=== PATIENT | male | born 1960 ===

== ENCOUNTER → 2020-04-16 15:50 | Outpatient (BNVA) | payer MEDICAID, SELFPAY | PROVIDERS: PCP Family Medicine; Referring Provider Family Medicine; Visit Provider Internal Medicine | DX: J44.9 Chronic obstructive pulmonary disease, unspecified (principal); R09.02 Hypoxemia; R91.8 Other nonspecific abnormal finding of lung field; Z79.899 Other long term (current) drug therapy; Z99.81 Dependence on supplemental oxygen | CPT/HCPCS: 99212 ==

== ENCOUNTER → 2020-06-01 09:54 | Outpatient (BNVA) | payer MEDICAID, SELFPAY | PROVIDERS: Visit Provider Internal Medicine Gastroenterology | DX: Z76.89 Persons encountering health services in other specified circumstances (principal) ==

== ENCOUNTER → 2020-07-14 15:49 | Outpatient (BNVA) | payer MEDICAID, SELFPAY | PROVIDERS: Visit Provider Internal Medicine | DX: J44.9 Chronic obstructive pulmonary disease, unspecified (principal); R09.02 Hypoxemia; R91.8 Other nonspecific abnormal finding of lung field | CPT/HCPCS: 99212 ==

== ENCOUNTER 2020-08-05 16:26 | Outpatient (REF) | payer MEDICAID, SELFPAY ==
--- NOTE | ~2020-08-05 | CT_ITS ---
EXAMINATION: CT CHEST WITHOUT CONTRAST CLINICAL INFORMATION: Abnormal lung finding. COMPARISON: CT chest 02/17/2020 and 12/13/2019. TECHNIQUE: Multidetector volumetric CT imaging of the chest was done. Axial MIP volume rendering provided. Sagittal and coronal reformatted images were obtained. This CT examination was performed using dose optimization techniques as appropriate, variously including the following: *Automated exposure control *Adjustment of mA and/or kV according to patient size (this includes techniques or standardized protocols for targeted exams where dose is matched to indication/reason for exam; i.e. extremities or head) *Use of iterative reconstruction technique DLP: 205 mGy-cm. FINDINGS: ORE TRIMMER: Hyperinflated lungs with bilateral apical chronic scarring. LUNGS: There are diffuse centrilobular emphysematous changes with chronic bilateral apical parenchymal bullous changes and apical parenchymal scarring and right apical pleural thickening. There are several pulmonary nodules seen. The largest new pulmonary nodules seen in the left lower lobe has resolved. Other smaller pulmonary nodules are the same size or better. There are two 4 mm pulmonary nodules seen in left upper lobe on axial image 22/5 and a larger 1.1 cm nodule left upper lobe image 31/5. There is no acute consolidation. Overall there is loss of right lung volume secondary to right upper lobe scarring. MEDIASTINUM: The thyroid lobes are symmetrical and normal. The central trachea and the bronchi widely patent. The heart size is normal. There are calcified mediastinal lymph nodes which are stable. There is an ectatic ascending aorta measuring 4.2 x 4.1 cm. There are coronary artery calcifications present. There is a small hiatal hernia present. PLEURA: There is mild bilateral apical pleural thickening no effusion seen. AXILLA: No lymphadenopathy. UPPER ABDOMEN: Visualized liver, spleen, pancreas and bilateral adrenal glands are unremarkable. OSSEOUS STRUCTURES: There is no lytic or sclerotic process. There is mild ventral spondylosis mid and lower dorsal spine. No lytic process. CT/CT chest wo con IMPRESSION: Diffuse centrilobular emphysema with the chronic apical pleural, parenchymal scarring and bilateral apical nodular opacities, slightly greater on the right than left. The left lower lobe new pulmonary nodule seen on the last CT chest 12/13/2019 has completely resolved. There are few 4 mm nodules seen in left upper lobe. A large left upper lobe and new nodule measures 1.1 cm. A larger 1.2 cm nodule seen in left lower lobe on previous exam 12/13/2019 on image 30/4 has resolved. Patchy density seen in the right upper lobe adjacent to the major fissure on axial image 29/4 on previous exam 12/13/2019 has resolved as well.
== END 2020-08-05 16:27 | disposition home or self-care (01) ==
LOC: HO.CT 16:26
PROVIDERS: PCP Internal Medicine; Visit Provider Surgery
DX: R91.8 Other nonspecific abnormal finding of lung field (principal)
CPT/HCPCS: 71250

== ENCOUNTER → 2020-08-14 10:57 | Outpatient (BNVA) | payer MEDICAID, SELFPAY | PROVIDERS: PCP Internal Medicine; Visit Provider Surgery | DX: J43.9 Emphysema, unspecified (principal); R91.8 Other nonspecific abnormal finding of lung field; R09.02 Hypoxemia; Z79.899 Other long term (current) drug therapy; Z99.81 Dependence on supplemental oxygen | CPT/HCPCS: 99212 ==

== ENCOUNTER → 2020-10-14 16:01 | Outpatient (BNVA) | payer MEDICAID, SELFPAY | PROVIDERS: PCP Internal Medicine; Visit Provider Internal Medicine | DX: J44.9 Chronic obstructive pulmonary disease, unspecified (principal); R09.02 Hypoxemia; R91.8 Other nonspecific abnormal finding of lung field | CPT/HCPCS: 99212 ==

== ENCOUNTER → 2020-10-29 10:02 | Outpatient (BNVA) | payer MEDICAID, SELFPAY | PROVIDERS: PCP Internal Medicine; Visit Provider Internal Medicine Gastroenterology ==

== ENCOUNTER 2020-10-30 06:37 | Day surgery (SDC) | payer MEDICAID, SELFPAY ==
[2020-10-30 06:59] VITALS: BP 113/78; PULSE 89; RESP 20; TEMP 36.9; O2SAT 94
[2020-10-30] MEDS: Lactated Ringers 1,000 ML 50 ML IV (07:15)
[2020-10-30 07:17] VITALS: BMI 31.6
--- NOTE | 2020-10-30 07:19 | HO.ANESPROP2 ---
[facility] Active Problems Active Problems: All Active Problems (Updated 10/20/20 @ 09:14 by Kailey Freitas PA-C) O2 dependent (Acute) Personal history of nicotine dependence (Acute) Pulmonary nodules (Acute) Hypoxemia (Acute) COPD (chronic obstructive pulmonary disease) (Acute) Hiatal hernia without gangrene or obstruction (Acute) GERD without esophagitis (Acute) Mass of upper lobe of left lung (Acute) Past Medical History Medical History Anxiety Ascending aorta dilatation Bipolar disorder COPD (chronic obstructive pulmonary disease) GERD without esophagitis Hiatal hernia without gangrene or obstruction History of drug abuse History of ETOH abuse Hyperlipidemia Hypertension Hypoxemia 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 Personal history of nicotine dependence Pulmonary nodules Family History Family History Father History of heart attack Mother History of COPD Sister History of cancer Brother Hx of cancer of lung Surgical History Surgical History H/O Achilles tendon repair History of biopsy History of colonoscopy History of repair of hiatal hernia (~06/01/18) Hx of endoscopy Social History Social History Household Members: None Alcohol intake: never Patient Tobacco Use Status: Former Tobacco user Smoked in Last 30 Days: No Use of substances other than those prescribed or required for medical reasons: No Are you DNR?: No Advance Directives: No Advance Directives Information Provided: Yes Recently lost weight without trying: No Meds Allergies Allergy/AdvReac Type Severity Reaction Status Date / Time No Known Allergies Allergy Verified 10/29/20 10:02 [No Known Allergies*] Home Medications Medication Instructions Recorded Confirmed Last Taken Type albuterol sulfate 90 mcg/actuation 2 puff INHALATION Q6H PRN 03/23/20 10/29/20 Unknown History aerosol inhaler clonazepam 1 mg tablet 1 mg PO DAILY 03/23/20 10/29/20 Unknown History cyclobenzaprine 10 mg tablet 10 mg PO TID 03/23/20 10/29/20 Unknown History gabapentin 800 mg tablet 800 mg PO TID 03/23/20 10/29/20 Unknown History ipratropium 0.5 mg-albuterol 3 mg 3 ml INHALATION Q6-8H PRN 03/23/20 10/29/20 Unknown History (2.5 mg base)/3 mL nebulization soln lamotrigine 25 mg tablet 25 mg PO Q OTHER DAY 03/23/20 10/29/20 Unknown History naloxone 4 mg/actuation nasal spray 4 mg INTRANASAL Q2M PRN 03/23/20 10/29/20 Unknown History tiotropium bromide 18 mcg capsule 1 cap INHALATION DAILY 03/23/20 10/29/20 Unknown History with inhalation device tramadol 50 mg tablet 50 mg PO DAILY 03/23/20 10/29/20 Unknown History Exam Exam Date and Time: October 30, 2020 0719 Height,Weight and Vital Signs: Last Vital Signs Temp 98.4 F 10/30/20 06:59 Pulse 89 10/30/20 06:59 Resp 20 10/30/20 06:59 BP 113/78 10/30/20 06:59 Pulse Ox 94 10/30/20 06:59 Airway Mallampati Class: II (Edentulous) TM Dist: >3cm Neck ROM: Limited Loose/Missing/Broken Teeth: Yes, Upper and Lower Heart: RRR Lungs: diffuse wheezing anteriorly; diminished bs posteriorly bilat bases Assessment and Plan Assessment Anesthesia Assessment: Anesthesia Plan Discussed and Chart Reviewed Final Anesthetic Review NPO: Yes ASA Class: III Final Preanesthetic Review: Meds/Allgs Chart Reviewed, Consent Obtained/Reviewed and Anes Risks/Benef Reviewed Patient Risk: High Procedure Risk: Intermediate Anesthetic Plan Anesthetic Plan: MAC: Disposition: Standard PACU
--- NOTE | 2020-10-30 07:23 | P.OP_ITS ---
Operative Note Operative Note Date of Service: 10/30/20 Narrative: Pre-op diagnosis: Dysphagia Post-op diagnosis: other (Esophagitis, esophageal stricture, hiatal hernia) Procedure: FLEXIBLE TRANSORAL UPPER GASTROINTESTINAL ENDOSCOPY WITH BIOPSIES AND ESOPHAGEAL BALLOON DILATION Consent: Indications for the procedure and potential complications of bleeding, perforation, reaction to medications and missed diagnosis were discussed with the patient and informed consent was obtained. Instrument: Olympus GIF H 190 mid size upper endoscope Monitoring: Vital signs and clinical assessment, continuous EKG monitoring, Pulse oximetry, Carbon Dioxide monitoring and blood pressure monitoring were done throughout the procedure. Procedure: The patient was placed in the left lateral decubitis position and pre-procedure medications were administered and a bite block was placed. The endoscope was inserted into the mouth and advanced under direct vision to the third part of duodenum. A careful inspection was made as the upper endoscope was withdrawn including a retroflexed examination of the proximal stomach; Findings and interventions are described below. Findings: Larynx: Some scarring of vocal cords with healed ulcer seen on past EGD Esophagus: Focal ulceration at 34 to 36 cms with luminal narrowing - multiple biopsies were obtained. Hiatal hernia 36 to 40 cms. Balloon dilation was performed with 13.5 and 15 mm CRE balloon for 60 sec at each level Stomach: Mild gastric erythema. Biopsies obtained on past EGD were negative for HP. Grade 3 flap valve and slipped fundal wrap seen on retroflexed examination of the cardia. Duodenum: Not examined. Intervention: Biopsies and balloon dilation as noted above Impression and Post Procedure Diagnosis: Endoscopy Findings: LARYNX: scarring of vocal cords ESOPHAGUS: Focal ulceration at 34 to 36 cms with luminal narrowing - multiple biopsies were obtained. Hiatal hernia 36 to 40 cms. Balloon dilation was performed with 13.5 and 15 mm CRE balloon for 60 sec at each level STOMACH: Grade 3 flap valve and slipped fundal wrap seen on retroflexed examination of the cardia. Plan: Await pathology results. Pt advised to take Carafate twice daily for GERD. Patient to schedule a follow up appointment in the GI Clinic with Melissa Handy M.D. Above findings were reviewed with the patient and handout on Esophageal Stricture was given in the discharge area Surgeon: Melissa Handy MD Anesthesia: MAC (Dr Blanchard) Was an Nutrition Coordinator used for this Procedure?: Yes Nutrition Coordinator: Bev Fernandez Estimated blood loss (mL): 0 Pathology: other (A. Esophageal stricture) Condition: stable Disposition: PACU
--- NOTE | 2020-10-30 07:23 | MHC.SHP ---
Pre-Procedural Eval Section A The patient is an INPATIENT: No The History & Physical has been completed within 30 days and I have reviewed it.: Yes Section B Chief Complaint: reflux disease Allergies: Allergies Allergy/AdvReac Type Severity Reaction Status Date / Time No Known Allergies Allergy Verified 10/29/20 10:02 [No Known Allergies*] Plan I have reviewed the history and physical and performed a pertinent physical examination on my patient. No changes have occurred unless specified.
[2020-10-30] MEDS: Albuterol/Iprat 2.5/0.5MG 3 ML AMPUL.NEB INHALE (07:40)
[2020-10-30 07:42] VITALS: PULSE 80; O2SAT 93
[2020-10-30 08:20] VITALS: BP 83/39; PULSE 84; RESP 18; TEMP 36.3; O2SAT 97
[2020-10-30 08:35] VITALS: BP 100/65; PULSE 85; RESP 20; O2SAT 96
== END 2020-10-30 08:53 | disposition home or self-care (01) ==
PROVIDERS: PCP Internal Medicine; Visit Provider Internal Medicine Gastroenterology
PROC: (CPT 43249; principal; 2020-10-30 07:30)
DX: K22.2 Esophageal obstruction (principal); K21.9 Gastro-esophageal reflux disease without esophagitis; K20.90 Esophagitis, unspecified without bleeding; K44.9 Diaphragmatic hernia without obstruction or gangrene; J44.9 Chronic obstructive pulmonary disease, unspecified; R09.02 Hypoxemia; I10 Essential (primary) hypertension; R91.8 Other nonspecific abnormal finding of lung field; Z99.81 Dependence on supplemental oxygen; Z79.51 Long term (current) use of inhaled steroids; Z79.899 Other long term (current) drug therapy; Z87.891 Personal history of nicotine dependence
CPT/HCPCS: 43249; 43239; 88305; 94640; C1726

== ENCOUNTER 2020-11-05 16:29 | Outpatient (REF) | payer MEDICAID, SELFPAY ==
--- NOTE | ~2020-11-05 | CT_ITS ---
EXAMINATION: CT CHEST WITHOUT CONTRAST CLINICAL INFORMATION: Follow-up pulmonary nodules COMPARISON: Previous chest CT scans most recent July 2020 TECHNIQUE: Multidetector volumetric CT imaging of the chest was done. Axial MIP volume rendering provided. Sagittal and coronal reformatted images were obtained. This CT examination was performed using dose optimization techniques as appropriate, variously including the following: *Automated exposure control *Adjustment of mA and/or kV according to patient size (this includes techniques or standardized protocols for targeted exams where dose is matched to indication/reason for exam; i.e. extremities or head) *Use of iterative reconstruction technique DLP: 319 mGy-cm FINDINGS: LUNGS: There is evidence of severe emphysema with bullous changes seen at the lung apices. There is bilateral upper lobe pleural and parenchymal scarring. There is volume loss to the bilateral upper lobes. There is bilateral upper lobe traction bronchiectasis. There are abnormal parenchymal densities and nodular opacities seen in the bilateral upper lobes adjacent to areas of traction bronchiectasis that are stable. The largest measures 1.2 x 1.8 cm and the left upper lobe axial image 17 series 4 and is partially calcified. There are multiple new nodular opacities seen. There are new clustered anterior segment right upper lobe nodules near the minor fissure axial image 28-30 series 4, largest measuring 6 x 10 mm axial image 30 series 4 and measuring 8 mm axial image 32 series 4. There is a 5 mm right middle lobe nodule axial image 45 series 4. There are multiple new clustered nodules seen in the right lower lobe largest measuring 1 cm axial image 33 and 0.7 x 1.2 cm axial image 36 series 4. There is a new 3 mm left upper lobe nodule axial image 25 series 4. There are multiple new superior segment left lower lobe nodular opacities, largest measuring 1 cm axial image 28 series 4. MEDIASTINUM: The visualized thyroid gland is unremarkable. Mediastinal adenopathy is stable. There are some calcified right hilar and mediastinal lymph nodes suggestive of old granulomatous disease. The heart does not appear enlarged. There is a trace pericardial effusion or pericardial thickening. There is coronary artery calcification. The thoracic aorta is upper normal in size. There is an esophageal hernia. PLEURA: There is no pleural effusion. No pleural mass or thickening. AXILLA: No lymphadenopathy. UPPER ABDOMEN: Unremarkable. OSSEOUS STRUCTURES: There are degenerative changes of the spine. CT/CT chest wo con IMPRESSION: Severe emphysema with bullous changes. Bilateral upper lobe volume loss, pleural and parenchymal scarring, traction bronchiectasis and nodular opacities that appears stable. There are numerous new lower lobe nodular opacities. This may represent an infectious or inflammatory process. Neoplastic process cannot be excluded and chest CT follow-up is recommended.
== END 2020-11-05 16:30 | disposition home or self-care (01) ==
LOC: HO.CT 16:29
PROVIDERS: Visit Provider Surgery
DX: R91.8 Other nonspecific abnormal finding of lung field (principal)
CPT/HCPCS: 71250

== ENCOUNTER → 2020-11-13 08:48 | Outpatient (BNVA) | payer MEDICAID, SELFPAY | PROVIDERS: PCP Internal Medicine; Visit Provider Surgery | DX: R91.8 Other nonspecific abnormal finding of lung field (principal); K44.9 Diaphragmatic hernia without obstruction or gangrene; J43.9 Emphysema, unspecified; Z79.899 Other long term (current) drug therapy; Z99.81 Dependence on supplemental oxygen; Z87.891 Personal history of nicotine dependence | CPT/HCPCS: 99212 ==

== ENCOUNTER 2021-01-28 17:25 | Emergency (ER) | payer MEDICAID, SELFPAY ==
[2021-01-28 18:04] VITALS: BP 122/73; PULSE 79; RESP 22; TEMP 36.8; O2SAT 95; BMI 30.1
[2021-01-28 18:35] LABS: COVID-19 Test Negative (Negative); IDNOW Serial# 9DD0AD1C; Strep A Nucleic Acid Negative (Negative)
[2021-01-28 21:12] VITALS: BP 121/76; PULSE 68; RESP 18; TEMP 36.8; O2SAT 100
--- NOTE | 2021-01-28 22:01 | ED.GENADULT ---
HPI - General Adult General Chief complaint: General Medical Stated complaint: burning sensation in throat Time Seen by Provider: 01/28/21 21:39 Source: patient Mode of arrival: ambulatory Limitations: no limitations History of Present Illness HPI narrative: 60-year-old male who presents emergency department for evaluation of painful swallowing and difficulty swallowing. Patient states for last 3 weeks he has had a burning sensation whenever he swallows. He states the burning sensation is mainly on the left side of his throat. He also states he is having difficulty swallowing solids and liquids for the past 3 weeks. He states that he has to turn his head to the right and massaged the left side of his neck in order to get liquids and solids to go down. He states that he feels like sometimes food gets stuck in his throat. The patient does have a history of GERD, hiatal hernia and esophageal strictures. He states his esophagus dilated has been dilated at least 3 times in the past. He had an endoscopy with balloon dilatation of 10/30/2020. The patient had focal ulceration at 34-36 cm with luminal narrowing and had balloon dilatation to leave the narrowing. Endoscopy also noted some scarring of the vocal cords with healing ulcers. Patient denied fever, chills, chest pain, shortness of breath. He does not believe that he has lost any weight despite not being able to eat or drink for 3 weeks. Patient is concerned that he may have an infection and is requesting antibiotics. Related Data Home Medications Medication Instructions Recorded Confirmed albuterol sulfate 90 mcg/actuation 2 puff INHALATION Q6H PRN 03/23/20 11/13/20 aerosol inhaler (ProAir HFA) clonazepam 1 mg tablet 1 mg PO DAILY 03/23/20 11/13/20 cyclobenzaprine 10 mg tablet 10 mg PO TID 03/23/20 11/13/20 gabapentin 800 mg tablet 800 mg PO TID 03/23/20 11/13/20 ipratropium 0.5 mg-albuterol 3 mg 3 ml INHALATION Q6-8H PRN 03/23/20 11/13/20 (2.5 mg base)/3 mL nebulization soln lamotrigine 25 mg tablet 25 mg PO Q OTHER DAY 03/23/20 11/13/20 naloxone 4 mg/actuation nasal 4 mg INTRANASAL Q2M PRN 03/23/20 11/13/20 spray (Narcan) tiotropium bromide 18 mcg capsule 1 cap INHALATION DAILY 03/23/20 11/13/20 with inhalation device (Spiriva with HandiHaler) tramadol 50 mg tablet 50 mg PO DAILY 03/23/20 11/13/20 Previous Rx's Medication Instructions Recorded omeprazole 40 mg capsule,delayed 40 mg PO BID 30 Days #60 cap 06/01/20 release simethicone 80 mg chewable tablet 80 mg PO TID-QID PRN 30 Days #90 06/01/20 (Gas Relief 80 (simethicone)) tab fluticasone 500 mcg-salmeterol 50 1 inh INHALATION BID #60 ea 06/17/20 mcg/dose blistr powdr for inhalation (Wixela Inhub) sucralfate 100 mg/mL oral 10 ml PO BID 30 Days #600 ml 10/30/20 suspension (Carafate) prednisone 5 mg tablet 5 mg PO DAILY #30 tab 12/16/20 cefuroxime axetil 500 mg tablet 500 mg PO Q12H 10 Days #20 tab 01/28/21 Allergies Allergy/AdvReac Type Severity Reaction Status Date / Time No Known Allergies Allergy Verified 01/28/21 18:04 [No Known Allergies*] Review of Systems Review of Systems: Yes all other systems are reviewed and are negative PMFSH Past Medical History Medical History Anxiety Ascending aorta dilatation Bipolar disorder COPD (chronic obstructive pulmonary disease) GERD without esophagitis Hiatal hernia without gangrene or obstruction History of drug abuse History of ETOH abuse Hyperlipidemia Hypertension Hypoxemia 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 Personal history of nicotine dependence Pulmonary nodules Surgical History History of Achilles tendon repair History of biopsy History of colonoscopy History of endoscopy History of repair of hiatal hernia (~06/01/18) Family History Family History Father History of heart attack Mother History of COPD Sister History of cancer Brother Hx of cancer of lung Social History Social History Household Members: None Alcohol intake: never Patient Tobacco Use Status: Former Tobacco user Smoked in Last 30 Days: No Use of substances other than those prescribed or required for medical reasons: No Advance Directives: No Advance Directives Information Provided: Yes Physical Exam Vital Signs: Vital Signs: Last Vital Signs Temp 98.2 F 01/28/21 21:12 Pulse 68 01/28/21 21:12 Resp 18 01/28/21 21:12 BP 121/76 01/28/21 21:12 Pulse Ox 100 01/28/21 21:12 Body Mass Index 30.1 Const: Other: Awake, alert, male, pleasant, cooperative, he does appear to be anxious, has no difficulty talking or swallowing his saliva, he can answer all questions appropriately. HENMT: Head: Yes normal to inspection, Yes normocephalic and Yes atraumatic Ears: external ears normal General nose exam: Normal external nose present Face and sinus: Yes normal facial exam Mouth: Normal oral and palatal mucosa present Throat: Yes posterior oropharynx normal Eyes: General: appearance normal, both eyes and all related structures Pupils: Equal, round and reactive pupils present Neck: Other: The neck appears to be normal with no asymmetry, there are no palpable neck masses on my examination, there is no palpable adenopathy, the patient's trachea is midline, he has no tenderness with palpation of his trachea. Chest: Chest palpation & inspection: normal inspection of the chest and normal palpation of entire chest wall Resp: Effort & Inspection: normal respiratory effort and able to speak in complete sentences Auscultation: clear to auscultation bilaterally Cardio: Rate: regular rate Rhythm: regular rhythm Heart sounds: S1 normal heart sound present, S2 normal heart sound present and no murmurs GI: Inspection: Yes normal to inspection Palpation (GI): Soft to palpation, nontender and no guarding Auscultation: normal bowel sounds : General: Yes no CVA tenderness Back/Spine/Pelvis: Back: no CVA tenderness Skin: General skin exam: no rashes or lesions noted Neuro: Cranial nerves: Yes CN's II-XII intact bilaterally and Yes Equal, round and reactive pupils present Cognition (Neuro): normal cognition Motor exam (neuro): 5/5 motor strength present throughout Extrem: General: Yes normal to inspection Psych: Appearance: grossly normal Speech and movement: Normal speech and movement present Affect: Anxious affect present Attitude: cooperative Thought process: Normal thought process present Thought content: Normal thought content present Course Course Course Narrative: 60-year-old male who presents emergency department for evaluation of painful swallowing and difficulty swallowing for 3 weeks. The patient's vital signs were normal. Physical examination was unremarkable. The patient had no difficulty swallowing his saliva. The patient's COVID-19 test was negative. The patient's rapid strep test was negative. This time I do not have a clear etiology for the patient's symptoms, the patient will need to follow-up with his learning coach and with his tape transferrer for re-evaluation. Patient is concerned that he may have an infection of his throat is requesting antibiotics. The patient will be given a prophylactic course of Ceftin 500 mg twice a day for 7 days to see if this improves his symptoms. He was advised to contact his learning coach tomorrow to see if he get a follow-up appointment within 1 week, I also advised the contact his tape transferrer to see if he get a follow-up appointment in a week as well. Medical Decision Making Lab Data Labs: Lab Results 01/28/21 01/28/21 Range/Units 18:13 18:13 COVID-19 (ARASH) Negative (Negative) COVID-19 Clin Com See Note S. pyogenes GrpA RANDALL Negative (Negative) Discharge Plan Discharge Clinical Impression: Odynophagia, Dysphagia Patient Disposition: Home, Self-Care Instructions: Dysphagia (ED) Additional Instructions: At this time, I do not have a clear cause for the painful swallowing and difficulty swallowing that your experiencing. Your exam was unremarkable. Your COVID-19 test was negative. Your rapid strep test was negative. I am going to start you on antibiotics to see if this improves her symptoms. Take Ceftin (cefuroxime) 500 mg pills, 1 pill every 12 hours for 7 days. You should call your learning coach tomorrow to try to make a follow-up appointment within 1 week for evaluation of your symptoms of painful swallowing and difficulty swallowing. You should also call your ears nose and throat doctor (tape transferrer) to discuss your symptoms and for follow-up appointment within 1 week. Prescriptions: New cefuroxime axetil 500 mg tablet 500 mg PO Q12H 10 Days Qty: 20 RF: 0 No Action fluticasone propion-salmeterol [Wixela Inhub] 500-50 mcg/dose blister with device 1 inh inhalation BID Qty: 60 RF: 3 sucralfate [Carafate] 100 mg/mL suspension 10 ml PO BID 30 Days Qty: 600 RF: 3 prednisone 5 mg tablet 5 mg PO DAILY Qty: 30 RF: 3 tramadol 50 mg tablet 50 mg PO DAILY RF: 0 clonazepam 1 mg tablet 1 mg PO DAILY RF: 0 lamotrigine 25 mg tablet 25 mg PO Q OTHER DAY RF: 0 Narcan 4 mg/actuation spray,non-aerosol 4 mg intranasal Q2M PRNRF: 0 cyclobenzaprine 10 mg tablet 10 mg PO TID RF: 0 gabapentin 800 mg tablet 800 mg PO TID RF: 0 ipratropium-albuterol 0.5 mg-3 mg(2.5 mg base)/3 mL solution for nebulization 3 ml inhalation Q6-8H PRNRF: 0 albuterol sulfate [ProAir HFA] 90 mcg/actuation HFA aerosol inhaler 2 puff inhalation Q6H PRNRF: 0 Spiriva with HandiHaler 18 mcg capsule, w/inhalation device 1 cap inhalation DAILY RF: 0 simethicone [Gas Relief 80 (simethicone)] 80 mg tablet,chewable 80 mg PO TID-QID PRN (Reason: abdominal distention) 30 Days Qty: 90 RF: 3 omeprazole 40 mg capsule,delayed release(DR/EC) 40 mg PO BID 30 Days Qty: 60 RF: 3 Referrals: Reji Handy MD [Physician] - 1 week
== END 2021-01-28 22:51 | disposition home or self-care (01) ==
PROVIDERS: Emergency Provider Emergency Medicine Emergency Medical Services; PCP Internal Medicine
DX: R13.10 Dysphagia, unspecified (principal); Z20.822 Contact with and (suspected) exposure to COVID-19; Z87.891 Personal history of nicotine dependence; Z79.899 Other long term (current) drug therapy
CPT/HCPCS: 36415; 87635; 87651; 99283; 99284

== ENCOUNTER 2021-02-02 12:11 | Day surgery (SDC) | payer MEDICAID, SELFPAY ==
[2021-02-02 12:22] VITALS: BMI 31.5
[2021-02-02 12:42] VITALS: PULSE 90; RESP 24; TEMP 37; O2SAT 95
--- NOTE | 2021-02-02 12:50 | MHC.SHP ---
Pre-Procedural Eval Section A Date of Service: 02/02/21 The patient is an INPATIENT: No The History & Physical has been completed within 30 days and I have reviewed it.: No Section B Chief Complaint: dysphagia Details of Present Illness: worsening dysphagia, hx of esophageal stricture Relevant Family History (Specify if Yes): No Relevant Social History: Tobacco Use (former smoker) Present Medications: see Short Stay Collaborative assessment Medical History: Significant History (Anxiety Ascending aorta dilatation Bipolar disorder COPD (chronic obstructive pulmonary disease) GERD without esophagitis Hiatal hernia without gangrene or obstruction History of drug abuse History of ETOH abuse Hyperlipidemia Hypertension Hypoxemia 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 Perso) History of Previous Operations: Relevant previous surgery/procedure and date(s) (H/O Achilles tendon repair History of biopsy History of colonoscopy History of repair of hiatal hernia (~06/01/18) Hx of endoscopy) Allergies: Allergies Allergy/AdvReac Type Severity Reaction Status Date / Time No Known Allergies Allergy Verified 01/28/21 18:04 [No Known Allergies*] Review of Systems Sugical H&P ROS: Negative: Constitution and Cardiovascular and Yes, Specify: Respiratory (chronic cough) and Gastrointestinal (worsening dysphagia) Exam Surgical H&P Exam: Normal: Heart, Normal: Extremities and Normal: Abdomen and Significant Findings: Lungs (decreased air antry bilaterally) Plan Diagnosis/Plan: Unchanged I have reviewed the history and physical and performed a pertinent physical examination on my patient. No changes have occurred unless specified.
--- NOTE | 2021-02-02 12:55 | PM.OP ---
Brief Operative Note Date of Service: 02/02/21 Pre-op diagnosis: Dysphagia, known history of esophageal stricture and Max's esophagus, status post Funsoplication with slipped fundal wrap. Post-op diagnosis: other (Esophageal stricture) Procedure: FLEXIBLE TRANSORAL UPPER GASTROINTESTINAL ENDOSCOPY WITH BIOPSIES AND ESOPHAGEAL BALLOON DILATION Consent: Indications for the procedure and potential complications of bleeding, perforation, reaction to medications and missed diagnosis were discussed with the patient and informed consent was obtained. Instrument: Olympus GIF H 190 mid size upper endoscope Monitoring: Vital signs and clinical assessment, continuous EKG monitoring, Pulse oximetry, Carbon Dioxide monitoring and blood pressure monitoring were done throughout the procedure. Procedure: The patient was placed in the left lateral decubitis position and pre-procedure medications were administered and a bite block was placed. The endoscope was inserted into the mouth and advanced under direct vision to the third part of duodenum. A careful inspection was made as the upper endoscope was withdrawn including a retroflexed examination of the proximal stomach; Findings and interventions are described below. Findings: Larynx: Scarring with thickening of vocal cords with healed ulcer seen on past EGD Esophagus:? Focal ulceration at 34 to 36 cms with luminal narrowing - multiple biopsies were obtained.? Hiatal hernia 36 to 40 cms.? Balloon dilation was performed with 13.5 and 15 mm CRE balloon for 60 sec at each level Stomach: Mild gastric erythema. Biopsies obtained on past EGD were negative for HP. Grade 3 flap valve and slipped fundal wrap seen on retroflexed examination of the cardia. Duodenum: Not examined. Impression and Post Procedure Diagnosis: Endoscopy Findings: LARYNX: scarring with thickening of vocal cords with healed ulcer seen on past EGD ESOPHAGUS: Focal ulceration at 34 to 36 cms with luminal narrowing - multiple biopsies were obtained and stricture dilated to 15 mm (45 F) with a CRE balloon.? Hiatal hernia 36 to 40 cms. STOMACH: Mild gastric erythema. Biopsies were obtained. Grade 3 flap valve and slipped fundal wrap on retroflexed examination of the cardia. Plan: Await pathology results Patient to schedule a follow up appointment in the GI Clinic with Melissa Handy M.D. Repeat EGD in 4 to 6 weeks for repeat dilation. Above findings were reviewed with the patient. Surgeon: Melissa Handy MD Anesthesia: MAC (Parul Barraza, ACCOUNT RETENTION REPRESENTATIVE) Was an Station Worker used for this Procedure?: Yes Station Worker: Aubrie Gray Estimated blood loss (mL): 0 Pathology: other (A. esophageal stricture) Condition: stable Disposition: PACU
--- NOTE | 2021-02-02 12:59 | HO.ANESPROP2 ---
[facility] [place] Active Problems Active Problems: All Active Problems (Updated 01/29/21 @ 00:02 by Angela Sommer) O2 dependent (Acute) Personal history of nicotine dependence (Acute) Pulmonary nodules (Acute) Hypoxemia (Acute) COPD (chronic obstructive pulmonary disease) (Acute) Hiatal hernia without gangrene or obstruction (Acute) GERD without esophagitis (Acute) Mass of upper lobe of left lung (Acute) Past Medical History Medical History Anxiety Ascending aorta dilatation Bipolar disorder COPD (chronic obstructive pulmonary disease) GERD without esophagitis Hiatal hernia without gangrene or obstruction History of drug abuse History of ETOH abuse Hyperlipidemia Hypertension Hypoxemia 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 Personal history of nicotine dependence Pulmonary nodules Family History Family History Father History of heart attack Mother History of COPD Sister History of cancer Brother Hx of cancer of lung Surgical History Surgical History History of Achilles tendon repair History of biopsy History of colonoscopy History of endoscopy History of repair of hiatal hernia (~06/01/18) History of Problems with Anesthesia: No Social History Social History Household Members: None Alcohol intake: never Patient Tobacco Use Status: Former Tobacco user Tobacco use type: Cigarette Smoked in Last 30 Days: No Use of substances other than those prescribed or required for medical reasons: No Are you DNR?: Yes Advance Directives: No Advance Directives Information Provided: Yes Recently lost weight without trying: No Nutrition Risks: No Nutritional Risk Meds Allergies Allergy/AdvReac Type Severity Reaction Status Date / Time No Known Allergies Allergy Verified 01/28/21 18:04 [No Known Allergies*] Home Medications Medication Instructions Recorded Confirmed Last Taken Type albuterol sulfate 90 mcg/actuation 2 puff INHALATION Q6H PRN 03/23/20 11/13/20 Unknown History aerosol inhaler (ProAir HFA) clonazepam 1 mg tablet 1 mg PO DAILY 03/23/20 11/13/20 Unknown History cyclobenzaprine 10 mg tablet 10 mg PO TID 03/23/20 11/13/20 Unknown History gabapentin 800 mg tablet 800 mg PO TID 03/23/20 11/13/20 Unknown History ipratropium 0.5 mg-albuterol 3 mg 3 ml INHALATION Q6-8H PRN 03/23/20 11/13/20 Unknown History (2.5 mg base)/3 mL nebulization soln lamotrigine 25 mg tablet 25 mg PO Q OTHER DAY 03/23/20 11/13/20 Unknown History naloxone 4 mg/actuation nasal 4 mg INTRANASAL Q2M PRN 03/23/20 11/13/20 Unknown History spray (Narcan) tiotropium bromide 18 mcg capsule 1 cap INHALATION DAILY 03/23/20 11/13/20 Unknown History with inhalation device (Spiriva with HandiHaler) tramadol 50 mg tablet 50 mg PO DAILY 03/23/20 11/13/20 Unknown History Exam Exam Date and Time: February 02, 2021 1259 Height,Weight and Vital Signs: Height 5 ft 10 in Weight 99.79 kg Last Vital Signs Temp 98.6 F 02/02/21 12:42 Pulse 90 02/02/21 12:42 Resp 24 H 02/02/21 12:42 Pulse Ox 95 02/02/21 12:42 Airway Mallampati Class: II (Edentulous) TM Dist: >3cm Neck ROM: Full Heart: RRR Lungs: Distant BS BUT NO WHEEZING HEARD Assessment and Plan Assessment Anesthesia Assessment: Anesthesia Plan Discussed and Chart Reviewed Final Anesthetic Review History of Problems with Anesthesia: No NPO: Yes ASA Class: III Final Preanesthetic Review: Meds/Allgs Chart Reviewed, Consent Obtained/Reviewed and Anes Risks/Benef Reviewed Patient Risk: Intermediate Procedure Risk: Intermediate Anesthetic Plan Anesthetic Plan: MAC: Disposition: Standard PACU
[2021-02-02] MEDS: Lactated Ringers 1,000 ML 50 ML IVCONT (13:05)
--- NOTE | 2021-02-02 13:42 | W.PM.OPN ---
Operative Note Operative Note Date of Service: 02/02/21 Narrative: Pre-op diagnosis:?Dysphagia, known history of esophageal stricture and Max's esophagus, status post Funsoplication with slipped fundal wrap. Post-op diagnosis:?other (Esophageal stricture) Procedure:? FLEXIBLE TRANSORAL UPPER GASTROINTESTINAL ENDOSCOPY WITH BIOPSIES AND ESOPHAGEAL BALLOON DILATION Consent:?Indications for the procedure and potential complications of bleeding, perforation, reaction to medications and missed diagnosis were discussed with the patient and informed consent was obtained. Instrument:?Olympus GIF H 190 mid size upper endoscope Monitoring: Vital signs and clinical assessment, continuous EKG monitoring, Pulse oximetry, Carbon Dioxide monitoring and blood pressure monitoring were done throughout the procedure. Procedure:?The patient was placed in the left lateral decubitis position and pre-procedure medications were administered and a bite block was placed. The endoscope was inserted into the mouth and advanced under direct vision to the third part of duodenum. A careful inspection was made as the upper endoscope was withdrawn including a retroflexed examination of the proximal stomach; Findings and interventions are described below. Findings: Larynx:? Scarring with thickening of vocal cords with healed ulcer seen on past EGD Esophagus:? Focal ulceration at 34 to 36 cms with luminal narrowing - multiple biopsies were obtained.? Hiatal hernia 36 to 40 cms.? Balloon dilation was performed with 13.5 and 15 mm CRE balloon for 60 sec at each level Stomach: Mild gastric erythema. Biopsies obtained on past EGD were negative for HP. Grade 3 flap valve and slipped fundal wrap seen on retroflexed examination of the cardia. Duodenum: Not examined. Impression and Post Procedure Diagnosis: Endoscopy Findings: LARYNX: scarring with thickening of vocal cords with healed ulcer seen on past EGD ESOPHAGUS: Focal ulceration at 34 to 36 cms with luminal narrowing - multiple biopsies were obtained and stricture dilated to 15 mm (45 F) with a CRE balloon.? Hiatal hernia 36 to 40 cms.? STOMACH: Mild gastric erythema. Biopsies were obtained. Grade 3 flap valve and slipped fundal wrap on retroflexed examination of the cardia. Plan: Await pathology results Patient to schedule a follow up appointment in the GI Clinic with Melissa Handy M.D. Repeat EGD in 4 to 6 weeks for repeat dilation. Above findings were reviewed with the patient. Surgeon:?Melissa Handy MD Anesthesia:?MAC (Parul Cuff, CONTACT ASSEMBLER) Was an Oil Well Directional Surveyor used for this Procedure?:?Yes Oil Well Directional Surveyor:?Aubrie Gray Estimated blood loss (mL):?0 Pathology:?other (A. esophageal stricture) Condition:?stable Disposition:?PACU
[2021-02-02 14:12] VITALS: BP 95/68; PULSE 83; RESP 20; TEMP 36.3; O2SAT 96
[2021-02-02 14:27] VITALS: BP 109/76; PULSE 80; RESP 20; TEMP 36.3; O2SAT 98
== END 2021-02-02 14:50 ==
PROVIDERS: PCP Internal Medicine; Visit Provider Internal Medicine Gastroenterology
PROC: (CPT 43249; principal; 2021-02-02 13:10)
DX: K22.2 Esophageal obstruction (principal); K44.9 Diaphragmatic hernia without obstruction or gangrene; K21.9 Gastro-esophageal reflux disease without esophagitis; I10 Essential (primary) hypertension; J44.9 Chronic obstructive pulmonary disease, unspecified; Z79.899 Other long term (current) drug therapy; Z99.81 Dependence on supplemental oxygen
CPT/HCPCS: 43249; 43239; 88305; 88312; C1726

== ENCOUNTER → 2021-02-17 15:57 | Outpatient (BNVA) | payer MEDICAID, SELFPAY | PROVIDERS: PCP Internal Medicine; Visit Provider Internal Medicine | DX: J44.9 Chronic obstructive pulmonary disease, unspecified (principal); R91.8 Other nonspecific abnormal finding of lung field; R09.02 Hypoxemia | CPT/HCPCS: 99212 ==

== ENCOUNTER 2021-04-30 16:23 | Outpatient (REF) | payer MEDICAID, SELFPAY ==
--- NOTE | ~2021-04-30 | CT_ITS ---
EXAMINATION: CT CHEST WITHOUT CONTRAST CLINICAL INFORMATION: Follow-up pulmonary nodules. COMPARISON: Previous chest CT scans most recent October 2020 TECHNIQUE: Multidetector volumetric CT imaging of the chest was done. Axial MIP volume rendering provided. Sagittal and coronal reformatted images were obtained. This CT examination was performed using dose optimization techniques as appropriate, variously including the following: *Automated exposure control *Adjustment of mA and/or kV according to patient size (this includes techniques or standardized protocols for targeted exams where dose is matched to indication/reason for exam; i.e. extremities or head) *Use of iterative reconstruction technique DLP: 190 mGy-cm FINDINGS: LUNGS: There is evidence of severe emphysema. There are bullous changes seen at the lung apices. There is bilateral upper lobe pleural and parenchymal scarring. There is volume loss to both upper lobes and traction bronchiectasis. There are abnormal parenchymal densities and calcified and noncalcified nodules seen in the lateral upper lobes that are stable. The largest measures 1.1 x 1.6 cm in the left upper lobe axial image 19 series 3 and is partially calcified. There is a 7 x 10 mm right lower lobe nodule that is stable from most recent exam October 2020 but new from older exams were sampled July 2020. The remainder of the previously identified pulmonary nodules that were new on October 2020 exam have resolved. There is a 4 mm peripheral or subpleural right middle lobe nodule axial image 49 series that is stable. There is a 4 mm medial right lower lobe nodule axial image 36 series 4 that is stable. MEDIASTINUM: There may be wall thickening of the thoracic esophagus. There is an esophageal hernia. The heart does not appear enlarged. There is coronary artery calcification. There is a trace pericardial effusion or thickening that is stable. The ascending thoracic aorta is slightly dilated measuring 4.4 cm. There are small calcified and noncalcified mediastinal lymph nodes and right hilar lymph nodes that are stable. PLEURA: There is no pleural effusion. No pleural mass or thickening. AXILLA: No lymphadenopathy. UPPER ABDOMEN: Unremarkable. OSSEOUS STRUCTURES: There are degenerative changes of the spine. CT/CT chest wo con IMPRESSION: Severe emphysema with bullous changes. Stable bilateral upper lobe volume loss, traction bronchiectasis and calcified and noncalcified nodules or parenchymal opacities. Persistent 7 x 10 mm right lower lobe nodule that is new from older exam for example July 2020. Attention on follow-up recommended. The remainder of the newly identified nodules on most recent exam October 2020 are no longer seen. Esophageal hernia and question wall thickening of the thoracic esophagus. Coronary artery and aortic valve calcification. Slightly dilated ascending thoracic aorta measuring 4.4 cm. Fleischner guidelines were followed.
== END 2021-04-30 16:24 | disposition home or self-care (01) ==
LOC: HO.CT 16:23
PROVIDERS: Visit Provider Surgery
DX: R91.8 Other nonspecific abnormal finding of lung field (principal)
CPT/HCPCS: 71250

== ENCOUNTER → 2021-05-14 10:59 | Outpatient (BNVA) | payer MEDICAID, SELFPAY | PROVIDERS: PCP Internal Medicine; Visit Provider Surgery | DX: R91.8 Other nonspecific abnormal finding of lung field (principal); K44.9 Diaphragmatic hernia without obstruction or gangrene; J43.9 Emphysema, unspecified; Z79.899 Other long term (current) drug therapy; Z99.81 Dependence on supplemental oxygen; Z87.891 Personal history of nicotine dependence | CPT/HCPCS: 99212 ==

== ENCOUNTER → 2021-06-21 16:10 | Outpatient (BNVA) | payer MEDICAID, SELFPAY | PROVIDERS: PCP Internal Medicine; Visit Provider Internal Medicine | DX: J44.9 Chronic obstructive pulmonary disease, unspecified (principal); R91.8 Other nonspecific abnormal finding of lung field; R09.02 Hypoxemia; Z87.891 Personal history of nicotine dependence | CPT/HCPCS: 99212 ==

== ENCOUNTER → 2021-10-21 15:52 | Outpatient (BNVA) | payer MEDICAID, SELFPAY | PROVIDERS: PCP Internal Medicine; Visit Provider Internal Medicine | DX: J44.9 Chronic obstructive pulmonary disease, unspecified (principal); R91.8 Other nonspecific abnormal finding of lung field; R09.02 Hypoxemia; Z87.891 Personal history of nicotine dependence | CPT/HCPCS: 99212 ==

== ENCOUNTER 2021-10-27 16:27 | Outpatient (REF) | payer MEDICAID, SELFPAY ==
--- NOTE | ~2021-10-27 | CT_ITS ---
EXAMINATION: CT CHEST WITHOUT CONTRAST CLINICAL INFORMATION: Abnormal lung finding. COMPARISON: CT chest 04/30/2021 TECHNIQUE: Multidetector volumetric CT imaging of the chest was done. Axial MIP volume rendering provided. Sagittal and coronal reformatted images were obtained. This CT examination was performed using dose optimization techniques as appropriate, variously including the following: *Automated exposure control *Adjustment of mA and/or kV according to patient size (this includes techniques or standardized protocols for targeted exams where dose is matched to indication/reason for exam; i.e. extremities or head) *Use of iterative reconstruction technique DLP: 326 mGy-cm FINDINGS: CHEF KITCHEN MANAGER: Hyperinflated lungs. LUNGS: There is severe centrilobular and paraseptal emphysema. There is chronic bilateral apical pleural thickening and parenchymal scarring, as well as large bullous changes in the left lung apex and minimal in the right lung apex. Mild traction bronchiectasis. There are several parenchymal densities which are calcified and noncalcified. The left apical parenchymal density appears stable compared to last exam. Previously described pulmonary nodules are stable with no interval worsening. There are no new nodules seen. However, there is diffuse ground-glass opacity/fine reticular interstitial pattern throughout both lungs. MEDIASTINUM: The thyroid lobes are symmetric and normal. The central trachea and the bronchi is widely patent. There are small shotty lymph nodes. The heart size and the great vessels are normal caliber. Mild coronary artery calcifications present. No pericardial effusion seen. There is a small hiatal hernia with distal esophageal thickening, question esophagitis. PLEURA: There is no pleural effusion. No pleural mass or thickening. AXILLA: No lymphadenopathy. UPPER ABDOMEN: Visualized liver, spleen, adrenal glands and the pancreas is unremarkable. OSSEOUS STRUCTURES: There is mild degenerative spondylosis throughout the dorsal spine and most prominent in the lower spine. No aggressive lytic or sclerotic process seen. CT/CT chest wo con IMPRESSION: Diffuse emphysema with bullous changes most prominent in the left upper lobe. There are bilateral chronic apical pleural thickening and large parenchymal scarring, slightly greater on the left. Mild bronchiectasis is stable. Calcified and noncalcified previously described nodules are stable. No new nodules seen. No abnormal size mediastinal lymphadenopathy. Stable hiatal hernia and mild thickening of the distal esophagus. Correlate with endoscopy or barium swallow. Fleischner guidelines were followed.
== END 2021-10-27 16:28 | disposition home or self-care (01) ==
LOC: HO.CT 16:27
PROVIDERS: PCP Internal Medicine; Visit Provider Surgery
DX: R91.8 Other nonspecific abnormal finding of lung field (principal)
CPT/HCPCS: 71250

== ENCOUNTER → 2021-11-12 11:03 | Outpatient (BNVA) | payer MEDICAID, SELFPAY | PROVIDERS: PCP Internal Medicine; Visit Provider Surgery | DX: R91.8 Other nonspecific abnormal finding of lung field (principal) | CPT/HCPCS: 99212 ==

== ENCOUNTER 2021-12-23 18:18 | Emergency (ER) | payer MEDICAID, SELFPAY ==
--- NOTE | ~2021-12-23 | XR_ITS ---
EXAMINATION: XR CHEST CLINICAL INFORMATION: Difficulty breathing COMPARISON: Chest CT 10/27/2021 and chest x-ray 04/15/2019 TECHNIQUE: Frontal view of the chest was obtained. FINDINGS: Cardiac silhouette is normal in size. The lungs are adequately aerated. Diffuse coarsening of the interstitial markings consistent with known emphysema. Bilateral upper lobe masslike densities are stable and most consistent with scarring. No pleural effusion. No pneumothorax. XR/XR chest 1V IMPRESSION: Chronic severe emphysematous changes without acute pulmonary pathology.
--- NOTE | 2021-12-23 18:20 | ECG_ITS ---
Test Reason : CHEST PAIN Blood Pressure : / mmHG Vent. Rate : 086 BPM Atrial Rate : 086 BPM P-R Int : 158 ms QRS Dur : 088 ms QT Int : 386 ms P-R-T Axes : 059 -05 036 degrees QTc Int : 461 ms Normal sinus rhythm Normal ECG When compared with ECG of 01-FEB-2019 20:39, No significant change was found Referred By: Generic ED Physician Electronically Signed By:YOEL ROBERTO
[2021-12-23 19:32] VITALS: BP 128/65; PULSE 89; RESP 18; TEMP 37.1; O2SAT 94; BMI 25.2
[2021-12-23 20:18] LABS: Hematocrit 32.2 % (42.0-52.0); Hemoglobin 9.9 g/dl (14.0-18.0); Mean Corpuscular HGB Conc 30.7 g/dl (31.0-36.0); Mean Corpuscular Hemoglobin 29.9 pg (27.0-33.0); Mean Corpuscular Volume 97.3 fL (80.0-98.0); Mean Platelet Volume 12.2 fL (9.4-12.4); Red Blood Count 3.31 X10*6/uL (4.60-5.80); Red Cell Distribution Width 16.3 % (11.0-16.0); White Blood Count 14.8 X10*3/uL (4.8-10.8)
[2021-12-23 20:20] LABS: Platelet Count 95 X10*3/uL (160-400)
[2021-12-23 20:44] LABS: Acanthocytes 2+ (3-5) /OIF; Atypical Lymph Absolute Manual 0.3 x10*3/uL; Atypical Lymphs Percent Manual 2 % (0-6); Band Neutrophils Percent 3 % (3-5); Lymphocytes Percent Manual 7 % (20-40); Macrocytosis 1+ (5-14) /OIF; Metamyelocytes Absolute 0.7 X10*3/uL; Metamyelocytes Percent 5 %; Monocytes Absolute Manual 4.7 X10*3/uL (0.1-1.2); Monocytes Percent Manual 32 % (2-11); Neutrophils Percent Manual 51 % (45-73); Ovalocytes 2+ (15-30) /OIF; Platelet Estimate DECREASED (NORMAL); Platelet Morphology Comment NORMAL; RBC Morphology NOTED
[2021-12-23 20:45] LABS: Burr Cells 1+ (0-2) /OIF; Polychromasia 1+ (0-2) /OIF; Tear Drop Cells 1+ (0-2) /OIF; Toxic Vacuolation PRESENT
[2021-12-23 20:46] LABS: Anion Gap 16 (12-20); Blood Urea Nitrogen 6 mg/dL (9-16); Calcium 8.4 mg/dL (8.4-10.2); Carbon Dioxide 21 mmol/L (22-29); Chloride 101 mmol/L (96-108); Creatinine Clr Calc Pharmacy 88.7; Estimated Glomerular Filt Rate > 60; Glucose Random 106 mg/dL (60-115); Potassium 4.7 mmol/L (3.3-5.1); Sodium 133 mmol/L (135-145)
--- NOTE | 2021-12-24 01:02 | ED_ITS ---
HPI - Chest Pain General Chief Complaint: Chest Pain Stated Complaint: chest pain, difficulty breathing, abdominal pain Time Seen by Provider: 12/24/21 00:28 Source: patient and other (Significant other, Irlanda) Mode of arrival: ambulatory Limitations: no limitations History of Present Illness HPI narrative: 61-year-old male who presents emergency department for evaluation of cough, shortness of breath, chest pain and diarrhea. The patient states that he has a history of COPD and uses 3 L of oxygen via nasal cannula. He states that on 12/03/2021 he was seen by his doctor and started on antibiotic and his prednisone was increased 5 mg to 20 mg for 5 days. He states that shortly after taking these medications he developed diarrhea. He has not had any blood in the stool. He states that since that time he has had 6-7 loose watery diarrheal stools per day. He states that shortly after being treated with antibiotics he also developed COVID-19 infection was treated with Paxil elevated. He states that he has since tested negative for COVID-19. He states that over the past 2 weeks he has developed a cough which is productive of thick green sputum with no blood in the sputum. He has also developed pain in his chest which is worse with coughing worse with breathing. He states that his shortness of breath is worse than his baseline as well. MD complaint: chest pain Prior episodes: Yes Onset: during rest and during exertion Pain location: other (Bilateral anterior and posterior chest) Pain radiation: none Severity: severe Pain scale (0-10): 8 Quality: tightness Relieving factors: nothing Exacerbating factors: other (Breathing and coughing) Context: recent illness (COVID-19 infection 2 weeks prior) Associated symptoms: dyspnea and cough Related Data Home Medications Medication Instructions Recorded Confirmed albuterol sulfate 90 mcg/actuation 2 puff inhalation Q6H PRN 03/23/20 11/12/21 aerosol inhaler (ProAir HFA) clonazepam 1 mg tablet 1 mg PO DAILY 03/23/20 11/12/21 cyclobenzaprine 10 mg tablet 10 mg PO TID 03/23/20 11/12/21 gabapentin 800 mg tablet 800 mg PO TID 03/23/20 11/12/21 ipratropium 0.5 mg-albuterol 3 mg 3 ml inhalation Q6-8H PRN 03/23/20 11/12/21 (2.5 mg base)/3 mL nebulization soln lamotrigine 25 mg tablet 25 mg PO Q OTHER DAY 03/23/20 11/12/21 naloxone 4 mg/actuation nasal 4 mg intranasal Q2M PRN 03/23/20 11/12/21 spray (Narcan) tiotropium bromide 18 mcg capsule 1 cap inhalation DAILY 03/23/20 11/12/21 with inhalation device (Spiriva with HandiHaler) tramadol 50 mg tablet 50 mg PO DAILY 03/23/20 11/12/21 Previous Rx's Medication Instructions Recorded omeprazole 40 mg capsule,delayed 40 mg PO BID 30 days #60 caps 06/01/20 release simethicone 80 mg chewable tablet 80 mg PO TID-QID PRN abdominal 06/01/20 (Gas Relief 80 (simethicone)) distention 30 days #90 tabs fluticasone 500 mcg-salmeterol 50 1 inh inhalation BID #60 ea 06/17/20 mcg/dose blistr powdr for inhalation (Wixela Inhub) sucralfate 100 mg/mL oral 10 ml PO BID 30 days #600 mL 10/30/20 suspension (Carafate) prednisone 5 mg tablet 5 mg PO DAILY #30 tabs 10/21/21 doxycycline hyclate 100 mg tablet 100 mg PO Q12H 10 days #20 tabs 12/24/21 loperamide 2 mg tablet (Imodium 2 mg PO BID PRN loose stool 7 days 12/24/21 A-D) #14 tabs prednisone 20 mg tablet 20 mg PO DAILY 5 days #5 tabs 12/24/21 Allergies Allergy/AdvReac Type Severity Reaction Status Date / Time No Known Allergies Allergy Verified 10/21/21 16:30 [No Known Allergies*] Review of Systems Review of Systems: Yes all other systems are reviewed and are negative [facility] Past Medical History [facility] Narrative: Social history: Patient is a former smoker. He stop smoking 6 years prior. He denies alcohol use. He denies drug use. Medical History Anxiety Ascending aorta dilatation Bipolar disorder COPD (chronic obstructive pulmonary disease) GERD without esophagitis Hiatal hernia without gangrene or obstruction History of drug abuse History of ETOH abuse Hyperlipidemia Hypertension Hypoxemia 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 Personal history of nicotine dependence Pulmonary nodules Surgical History History of Achilles tendon repair History of biopsy History of colonoscopy History of endoscopy History of repair of hiatal hernia (~06/01/18) Family History Family History Father History of heart attack Mother History of COPD Sister History of cancer Brother Hx of cancer of lung Social History Social History Household Members: None Alcohol intake: never Patient Tobacco Use Status: Former Tobacco user Tobacco use type: Cigarette Advance Directives: No Advance Directives Information Provided: Yes Physical Exam Vital Signs: Vital Signs: Last Vital Signs Temp 98.7 F 12/23/21 19:32 Pulse 89 12/23/21 19:32 Resp 18 12/23/21 19:32 BP 128/65 12/23/21 19:32 Pulse Ox 94 12/23/21 19:32 O2 Del Method 12/23/21 19:32 Oxygen Flow Rate 3 12/23/21 19:32 BMI result Body Mass Index 25.2 Const: Other: Awake, alert, male patient, he is wearing oxygen via nasal cannula, he is pleasant, he is cooperative, he answers all questions appropriately, he does not appear to be in distress HEENT: Head: Yes normal to inspection, Yes normocephalic and Yes atraumatic Ears: external ears normal General nose exam: Normal external nose present Face and sinus: Yes normal facial exam Mouth: Normal oral and palatal mucosa present Throat: Yes posterior oropharynx normal Eyes: General: appearance normal, both eyes and all related structures Pupils: Equal, round and reactive pupils present Neck: Neck: Yes normal visual inspection, Yes no lymphadenopathy, Yes trachea midline and Yes supple Chest: Chest palpation & inspection: normal inspection of the chest and tenderness (Anterior and posterior chest wall tenderness) Resp: Effort & Inspection: normal respiratory effort and able to speak in complete sentences Auscultation: clear to auscultation bilaterally Cardio: Rate: regular rate Rhythm: regular rhythm Heart sounds: S1 normal heart sound present, S2 normal heart sound present and no murmurs GI: Inspection: Yes normal to inspection Palpation (GI): Soft to palpation, Tenderness to palpation present (GI) (Mild diffuse tenderness) and no guarding Auscultation: normal bowel sounds : General: Yes no CVA tenderness Back/Spine/Pelvis: Back: no CVA tenderness Skin: General skin exam: no rashes or lesions noted Neuro: Cranial nerves: Yes CN's II-XII intact bilaterally and Yes Equal, round and reactive pupils present Cognition (Neuro): normal cognition Motor exam (neuro): 5/5 motor strength present throughout Extrem: General: Yes normal to inspection Psych: Appearance: grossly normal Speech and movement: Normal speech and movement present Affect: normal affect Attitude: cooperative Thought process: Normal thought process present Thought content: Normal thought content present Course Course Course Narrative: 61-year-old male who presents emergency department for evaluation of 3 weeks of 7-8 episodes of watery diarrhea per day, 2 weeks chest pain, shortness of breath and cough. Patient does have COPD and is on prednisone 5 mg daily and 3 L of oxygen via nasal cannula continuously. Patient's vital signs were normal with an O2 saturation of 94% on oxygen. Lung exam was clear. Abdominal exam revealed diffuse tenderness. Laboratory evaluation revealed elevated WBC 85066, anemia with an H&H of 9 and 32, [place] [address]. Patient's sodium was low 133 and bicarb was low 21. Chest x-ray revealed COPD changes only with no evidence for acute pneumonia. The patient was not able to give us a stool sample for testing. I did discuss the possibility of C diff or other infectious causes for his diarrhea however I think this is less likely specially since he is unable to give us a stool sample at this time. The patient will be treated with Imodium 2 mg twice a day for 5 days. I do believe the patient has bronchitis as well and he was prescribed doxycycline 100 mg twice a day for 10 days and prednisone 20 mg once a day for 5 days. He was given his 1st dose of doxycycline 100 mg, Imodium 2 mg and prednisone 20 mg here in the emergency department. He was given printed and verbal instructions and discharged home. MDM - Chest Pain Lab Data Result diagrams: 12/23/21 20:12 12/23/21 20:12 Labs: Lab Results 12/23/21 12/23/21 Range/Units 20:12 20:12 WBC 14.8 H (4.8-10.8) X10*3/uL RBC 3.31 L (4.60-5.80) X10*6/uL Hgb 9.9 L (14.0-18.0) g/dl Hct 32.2 L (42.0-52.0) % MCV 97.3 (80.0-98.0) fL MCH 29.9 (27.0-33.0) pg MCHC 30.7 L (31.0-36.0) g/dl RDW 16.3 H (11.0-16.0) % Plt Count 95 L (160-400) X10*3/uL MPV 12.2 (9.4-12.4) fL Immature Gran % (Auto) Cancelled Neut % (Auto) Cancelled Lymph % (Auto) Cancelled [place] % (Auto) Cancelled Eos % (Auto) Cancelled Baso % (Auto) Cancelled Lymph # (Auto) Cancelled [place] # (Auto) Cancelled Eos # (Auto) Cancelled Baso # (Auto) Cancelled Abs Immat Gran (auto) Cancelled Absolute Neuts (auto) Cancelled Absolute Nucleated RBC 0.000 (0.0-0.012) X10*3/uL Nucleated RBC % (auto) 0.0 (0.0-0.2) /100WBC Neutrophils % (Manual) 51 (45-73) % Band Neutrophils % 3 (3-5) % Lymphocytes % (Manual) 7 L (20-40) % Atypical Lymphs % (Man) 2 (0-6) % Monocytes % (Manual) 32 H (2-11) % Metamyelocytes % 5 % Abs Neuts (Manual) 8.0 (2.0-8.3) X10*3/uL Lymphocytes # (Manual) 1.0 L (1.2-4.9) X10*3/uL Atyp Lymphs # (Manual) 0.3 x10*3/uL Monocytes # (Manual) 4.7 H (0.1-1.2) X10*3/uL Metamyelocytes # 0.7 X10*3/uL Toxic Vacuolation PRESENT Platelet Estimate DECREASED (NORMAL) Plt Morphology Comment NORMAL RBC Morphology NOTED Polychromasia 1+ (0-2) /OIF Macrocytosis 1+ (5-14) /OIF Tear Drop Cells 1+ (0-2) /OIF Ovalocytes 2+ (15-30) /OIF [place] Cells 1+ (0-2) /OIF Acanthocytes (Spur) 2+ (3-5) /OIF Sodium 133 L (135-145) mmol/L Potassium 4.7 (3.3-5.1) mmol/L Chloride 101 (96-108) mmol/L Carbon Dioxide 21 L (22-29) mmol/L Anion Gap 16 (12-20) BUN 6 L (9-16) mg/dL Creatinine 0.88 (0.5-1.4) mg/dL Estim Creat Clear Calc 88.7 Estimated GFR > 60 Random Glucose 106 (60-115) mg/dL Calcium 8.4 (8.4-10.2) mg/dL Discharge Plan Discharge Clinical Impression: Bronchitis, Chronic obstructive pulmonary disease with (acute) exacerbation Diarrhea Qualifiers: Diarrhea type: unspecified type Qualified Code(s): R19.7 - Diarrhea, unspecified Patient Disposition: Home, Self-Care Instructions: Acute Bronchitis (ED), Acute Diarrhea (ED) Additional Instructions: Your laboratory evaluation is consistent with your baseline values. Your chest x-ray was consistent with changes noted with COPD/emphysema with no evidence for new pneumonia. At this time I am going to treat you for bronchitis with doxycycline 100 mg twice a day for 10 days and prednisone 20 mg once a day for 5 days. I am going to treat your diarrhea with Imodium 2 mg twice a day for 5 days. If this does not resolve your diarrhea then you should talk to her doctor about getting stool samples for testing. You should be tested for Clostridium difficile (C diff) and have a stool culture for GI panel as well. Follow-up with your doctor in 2 days. Please return to the emergency department if your symptoms get worse or if you develop any symptoms that are concerning to you. Prescriptions: New prednisone 20 mg tablet 20 mg PO DAILY 5 Days Qty: 5 0RF loperamide [Imodium A-D] 2 mg tablet 2 mg PO BID PRN (Reason: loose stool) 7 Days Qty: 14 0RF doxycycline hyclate 100 mg tablet 100 mg PO Q12H 10 Days Qty: 20 0RF No Action fluticasone propion-salmeterol [Wixela Inhub] 500-50 mcg/dose blister with device 1 inh inhalation BID Qty: 60 3RF sucralfate [Carafate] 100 mg/mL suspension 10 ml PO BID 30 Days Qty: 600 3RF tramadol 50 mg tablet 50 mg PO DAILY clonazepam 1 mg tablet 1 mg PO DAILY lamotrigine 25 mg tablet 25 mg PO Q OTHER DAY Narcan 4 mg/actuation spray,non-aerosol 4 mg intranasal Q2M PRN Rx Instructions: spray 1 dose into ONE nostril; alternate nostrils w each dose until help arrives cyclobenzaprine 10 mg tablet 10 mg PO TID gabapentin 800 mg tablet 800 mg PO TID ipratropium-albuterol 0.5 mg-3 mg(2.5 mg base)/3 mL solution for nebulization 3 ml inhalation Q6-8H PRN albuterol sulfate [ProAir HFA] 90 mcg/actuation HFA aerosol inhaler 2 puff inhalation Q6H PRN Spiriva with HandiHaler 18 mcg capsule, w/inhalation device 1 cap inhalation DAILY Rx Instructions: puncture 1 cap using device; one dose = 2 inhalations simethicone [Gas Relief 80 (simethicone)] 80 mg tablet,chewable 80 mg PO TID-QID PRN (Reason: abdominal distention) 30 Days Qty: 90 3RF omeprazole 40 mg capsule,delayed release(DR/EC) 40 mg PO BID 30 Days Qty: 60 3RF prednisone 5 mg tablet 5 mg PO DAILY Qty: 30 3RF
[2021-12-24] MEDS: Loperamide HCl 2 MG CAPSULE PO (02:00)
[2021-12-24] MEDS: predniSONE 20 MG TABLET PO (02:00)
[2021-12-24 02:09] VITALS: BP 118/78; PULSE 111; RESP 22; TEMP 36.8; O2SAT 97
== END 2021-12-24 02:10 | disposition home or self-care (01) ==
PROVIDERS: Emergency Provider Emergency Medicine Emergency Medical Services
DX: J44.1 Chronic obstructive pulmonary disease with (acute) exacerbation (principal); J20.9 Acute bronchitis, unspecified; J44.0 Chronic obstructive pulmonary disease with (acute) lower respiratory infection; R19.7 Diarrhea, unspecified; I10 Essential (primary) hypertension; Z99.81 Dependence on supplemental oxygen; Z87.891 Personal history of nicotine dependence
CPT/HCPCS: 36415; 71045; 80048; 85007; 85027; 93005; 99283; 99284

== ENCOUNTER → 2022-01-27 15:50 | Outpatient (BNVA) | payer MEDICAID, SELFPAY | PROVIDERS: PCP Internal Medicine; Visit Provider Internal Medicine | DX: J44.9 Chronic obstructive pulmonary disease, unspecified (principal); R91.8 Other nonspecific abnormal finding of lung field; R09.02 Hypoxemia | CPT/HCPCS: 99212 ==

== ENCOUNTER → 2022-04-04 15:55 | Outpatient (BNVA) | payer MEDICAID, SELFPAY | PROVIDERS: PCP Internal Medicine; Visit Provider Internal Medicine | DX: J44.9 Chronic obstructive pulmonary disease, unspecified (principal); R09.02 Hypoxemia; R91.8 Other nonspecific abnormal finding of lung field; F41.9 Anxiety disorder, unspecified | CPT/HCPCS: 99212 ==

== ENCOUNTER → 2022-06-09 15:50 | Outpatient (BNVA) | payer MEDICAID, SELFPAY | PROVIDERS: PCP Internal Medicine; Visit Provider Internal Medicine | DX: J44.9 Chronic obstructive pulmonary disease, unspecified (principal); R91.8 Other nonspecific abnormal finding of lung field; R09.02 Hypoxemia; F41.9 Anxiety disorder, unspecified | CPT/HCPCS: 99212 ==

== ENCOUNTER → 2022-08-18 13:35 | Outpatient (BNVA) | payer MEDICAID, SELFPAY | PROVIDERS: PCP Registered Nurse; Referring Provider Registered Nurse; Visit Provider Internal Medicine Gastroenterology | DX: K21.9 Gastro-esophageal reflux disease without esophagitis (principal); K44.9 Diaphragmatic hernia without obstruction or gangrene; D64.9 Anemia, unspecified | CPT/HCPCS: 99212 ==

== ENCOUNTER 2022-08-19 07:43 | Day surgery (SDC) | payer MEDICAID, SELFPAY ==
[2022-08-19 10:46] VITALS: BMI 26.8
[2022-08-19 10:51] VITALS: BP 126/87; PULSE 83; RESP 18; TEMP 36.3; O2SAT 99
[2022-08-19] MEDS: Albuterol Sulfate (0.083%) 2.5 MG/3 ML VIAL.NEB INHALE (10:55)
--- NOTE | 2022-08-19 13:18 | MHC.SHP ---
Pre-Procedural Eval Section A Date of Service: 08/19/22 The patient is an INPATIENT: No Changes since office visit: Yes Patient answered all questions; No Cold of Flu in the past 2 weeks, No New Medical Problems and No Changes in Medication The History & Physical has been completed within 30 days and I have reviewed it.: Yes Section B Chief Complaint: Diaphragmatic hernia,anemia,reflux Allergies: Allergies Allergy/AdvReac Type Severity Reaction Status Date / Time No Known Allergies Allergy Verified 08/18/22 13:40 [No Known Allergies*] Plan I have reviewed the history and physical and performed a pertinent physical examination on my patient. No changes have occurred unless specified. Time Spent With Patient Time: Total time managing care of this patient today ____ minutes.
--- NOTE | 2022-08-19 13:19 | P.BOP_ITS ---
Brief Operative Note Date of Service: 08/19/22 Pre-op diagnosis: GERD, esophageal stricture, dysphagia Post-op diagnosis: other ( esophagitis, hiatal hernia, esophageal stricture) Procedure: FLEXIBLE TRANSORAL UPPER GASTROINTESTINAL ENDOSCOPY WITH BIOPSIES AND ESOPHAGEAL BALLOON DILATION Surgeon: Melissa Handy MD Anesthesia: MAC Was an [employer] used for this Procedure?: Yes [employer]: Aubrie Gray Estimated blood loss (mL): 1 Pathology: other (A. esophageal stricture bxs) Condition: stable Disposition: PACU
--- NOTE | 2022-08-19 13:19 | P.OP_ITS ---
Operative Note Operative Note Date of Service: 08/19/22 Narrative: Pre-op diagnosis: GERD, esophageal stricture, dysphagia Post-op diagnosis:?other ( esophagitis, hiatal hernia, esophageal stricture) Surgeon: Melissa Handy MD Anesthesia:?MAC FLEXIBLE TRANSORAL UPPER GASTROINTESTINAL ENDOSCOPY WITH BIOPSIES Consent: Indications for the procedure and potential complications of bleeding, perforation, reaction to medications and missed diagnosis were discussed with the patient and informed consent was obtained. Instrument: Olympus GIF H 190 mid size upper endoscope Monitoring: Vital signs and clinical assessment, continuous EKG monitoring, Pulse oximetry, Carbon Dioxide monitoring and blood pressure monitoring were done throughout the procedure. Procedure: The patient was placed in the left lateral decubitis position and pre-procedure medications were administered and a bite block was placed. The endoscope was inserted into the mouth and advanced under direct vision to the third part of duodenum. A careful inspection was made as the upper endoscope was withdrawn including a retroflexed examination of the proximal stomach; Findings and interventions are described below. Findings: Larynx: Scarring with thickening of vocal cords with healed ulcer seen on past EGD Esophagus:? Focal ulceration at 34 to 36 cms with luminal narrowing - multiple b iopsies were obtained.? Hiatal hernia 36 to 40 cms.? Balloon dilation was performed with 13.5 and 14 mm CRE balloon for 60 sec at each level Stomach: Mild gastric erythema. Biopsies obtained on past EGD were negative for HP. Grade 3 flap valve and slipped fundal wrap seen on retroflexed examination of the cardia. Duodenum: Normal bulb and descending duodenum Intervention: Biopsies and esophageal balloon dilation as noted above Impression and Post Procedure Diagnosis: Endoscopy Findings: LARYNX: Scarring with thickening of vocal cords with healed ulcer seen on past EGD ESOPHAGUS: Focal esophagitis with stricture from 34 to 36 cms - dilated to 14 mm with a CRE balloon and biopsied. STOMACH: Mild gastric erythema. Biopsies obtained on past EGD were negative for HP. Grade 3 flap valve and slipped fundal wrap seen on retroflexed examination of the cardia. Plan: I will contact the patient with pathology results Patient has an appointment on 12/15/22 in the GI Clinic with Melissa Handy M.D. Above findings were reviewed with the patient and Esophageal Stricture and Esophageal dilation handouts were given in the discharge area Repeat EGD with dilation in 3-4 weeks
--- NOTE | 2022-08-19 13:43 | P.CONAN_ITS ---
HPI - Anesthesia Eval Consult details Narrative: screenind esphageal stricture PMFSH Active Problems Active Problems: All Active Problems (Updated 08/18/22 @ 14:05 by Melissa Handy MD) Anemia (Acute) Anxiety (Acute) O2 dependent (Acute) Personal history of nicotine dependence (Acute) Pulmonary nodules (Acute) Hypoxemia (Acute) COPD (chronic obstructive pulmonary disease) (Acute) Hiatal hernia without gangrene or obstruction (Acute) GERD without esophagitis (Acute) Mass of upper lobe of left lung (Acute) Past Medical History Medical History Anxiety Anxiety Ascending aorta dilatation Bipolar disorder COPD (chronic obstructive pulmonary disease) GERD without esophagitis Hiatal hernia without gangrene or obstruction History of drug abuse History of ETOH abuse Hyperlipidemia Hypertension Hypoxemia 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 Personal history of nicotine dependence Pulmonary nodules Family History Family History Father History of heart attack Mother History of COPD Sister History of cancer Brother Hx of cancer of lung Family history of problems with anesthesia: No Surgical History Surgical History History of Achilles tendon repair History of biopsy History of colonoscopy History of endoscopy History of repair of hiatal hernia (~06/01/18) History of Problems with Anesthesia: No Social History Social History Household Members: None Alcohol intake: never Patient Tobacco Use Status: Former Tobacco user Tobacco use type: Cigarette Second Hand Smoke Exposure: No Use of substances other than those prescribed or required for medical reasons: No Are you DNR?: No Advance Directives: No Advance Directives Information Provided: Yes Advance Directives on File: No Meds Allergies Allergy/AdvReac Type Severity Reaction Status Date / Time No Known Allergies Allergy Verified 08/18/22 13:40 [No Known Allergies*] Active Medications: Current Medications Albuterol Sulfate (Albuterol Sulfate (0.083%) 2.5 Mg/3 Ml Vial.Neb) 2.5 mg INHALE ONCE PRN PRN Reason: Wheezing Last Admin: 08/19/22 10:55 Dose: 2.5 mg Home Medications Medication Instructions Recorded Confirmed Last Taken Type albuterol sulfate 90 mcg/actuation 2 puff inhalation Q6H PRN 03/23/20 08/18/22 Unknown History aerosol inhaler (ProAir HFA) clonazepam 1 mg tablet 1 mg PO DAILY 03/23/20 08/18/22 Unknown History ipratropium 0.5 mg-albuterol 3 mg 3 ml inhalation Q6-8H PRN 03/23/20 08/18/22 Unknown History (2.5 mg base)/3 mL nebulization soln naloxone 4 mg/actuation nasal 4 mg intranasal Q2M PRN 03/23/20 08/18/22 Unknown History spray (Narcan) tramadol 50 mg tablet 50 mg PO DAILY 03/23/20 08/18/22 Unknown History atorvastatin 20 mg tablet 20 mg PO BEDTIME 01/27/22 08/18/22 Unknown History dextroamphetamine-amphetamine 10 1 tab PO DAILY 01/27/22 08/18/22 Unknown His tory mg tablet gabapentin 600 mg tablet 0 mg PO 01/27/22 08/18/22 Unknown History lamotrigine 200 mg tablet 200 mg PO BID 01/27/22 08/18/22 Unknown History metoprolol tartrate 25 mg tablet 25 mg PO BID 01/27/22 08/18/22 Unknown History paliperidone 3 mg tablet,extended 3 mg PO DAILY 01/27/22 08/18/22 Unknown History release 24 hr (Invega) paliperidone 6 mg tablet,extended 6 mg PO QAM 01/27/22 08/18/22 Unknown History release 24 hr (Invega) sildenafil 100 mg tablet (Viagra) 100 mg PO DAILY PRN 01/27/22 08/18/22 Unknown History cyclobenzaprine 10 mg tablet 10 mg PO TID PRN 06/09/22 08/18/22 Unknown History ipratropium 20 mcg-albuterol 100 1 puff inhalation QID PRN 06/09/22 08/18/22 Unknown History mcg/actuation mist for inhalation (Combivent Respimat) Exam Exam Date and Time: August 19, 2022 1343 Height,Weight and Vital Signs: Height 5 ft 10 in Weight 84.822 kg Last Vital Signs Temp 97.3 F 08/19/22 10:51 Pulse 83 08/19/22 10:51 Resp 18 08/19/22 10:51 BP 126/87 08/19/22 10:51 Pulse Ox 99 08/19/22 10:51 O2 Del Method Nasal Cannula 08/19/22 10:51 O2 Flow Rate 3 08/19/22 10:51 Airway Mallampati Class: I TM Dist: >3cm Neck ROM: Full Denture: Upper and Lower Heart: rr Lungs: cta Assessment and Plan Assessment Anesthesia Assessment: Anesthesia Plan Discussed Final Anesthetic Review Family History of Problems with Anesthesia: No History of Problems with Anesthesia: No NPO: Yes ASA Class: III Final Preanesthetic Review: No Changes in Pt Med Stat, Meds/Allgs Chart Reviewed, Consent Obtained/Reviewed and Anes Risks/Benef Reviewed Patient Risk: Intermediate Procedure Risk: Low Anesthetic Plan Anesthetic Plan: MAC: Disposition: Standard PACU
[2022-08-19 13:55] VITALS: BP 112/69; PULSE 84; RESP 16; TEMP 37.1; O2SAT 94
[2022-08-19 14:10] VITALS: BP 123/73; PULSE 69; RESP 16; O2SAT 98
[2022-08-19 14:25] VITALS: BP 120/74; PULSE 73; RESP 16; O2SAT 100
[2022-08-19 14:35] VITALS: BP 120/74; PULSE 73; RESP 16; TEMP 36.7; O2SAT 100
== END 2022-08-19 15:49 | disposition home or self-care (01) ==
PROVIDERS: PCP Internal Medicine Gastroenterology; Visit Provider Internal Medicine Gastroenterology
PROC: (CPT 43249; principal; 2022-08-19 14:50)
DX: K21.9 Gastro-esophageal reflux disease without esophagitis (principal); K22.2 Esophageal obstruction; D64.9 Anemia, unspecified; K44.9 Diaphragmatic hernia without obstruction or gangrene; K20.80 Other esophagitis without bleeding; F41.1 Generalized anxiety disorder; J44.9 Chronic obstructive pulmonary disease, unspecified; I10 Essential (primary) hypertension; E78.5 Hyperlipidemia, unspecified; R91.8 Other nonspecific abnormal finding of lung field; Z99.81 Dependence on supplemental oxygen; Z79.51 Long term (current) use of inhaled steroids; Z79.899 Other long term (current) drug therapy; Z66 Do not resuscitate; Z87.891 Personal history of nicotine dependence; F10.11 Alcohol abuse, in remission; F14.91 Cocaine use, unspecified, in remission
CPT/HCPCS: 43249; 43239; 88305; 88312; 88341; 88342; C1726; J2250

== ENCOUNTER 2022-09-14 08:39 | Day surgery (SDC) | payer MEDICAID, SELFPAY ==
--- NOTE | 2022-09-13 11:57 | HO.ANESPROP2 ---
Documented by User: Latisha Red NP 09/13/22 12:01 HPI - Anesthesia Eval Consult details Narrative: 62yo M for Upper Endoscopy with Balloon Dilitation s/p same 07/2022 with MAC Advanced COPD with continuous O2 @ 2-3L Hx polysub abuse PMFSH Active Problems Active Problems: All Active Problems (Updated 09/09/22 @ 14:35 by Adele Atkinson RN) Anemia (Acute) Anxiety (Acute) O2 dependent (Acute) Personal history of nicotine dependence (Acute) Pulmonary nodules (Acute) Hypoxemia (Acute) COPD (chronic obstructive pulmonary disease) (Acute) Hiatal hernia without gangrene or obstruction (Acute) GERD without esophagitis (Acute) Mass of upper lobe of left lung (Acute) Past Medical History Medical History Anxiety Anxiety Ascending aorta dilatation Bipolar disorder COPD (chronic obstructive pulmonary disease) GERD without esophagitis Hiatal hernia without gangrene or obstruction History of drug abuse History of ETOH abuse Hyperlipidemia Hypertension Hypoxemia 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 On beta mariano at home Personal history of nicotine dependence Pulmonary nodules Family History Family History Father History of heart attack Mother History of COPD Sister History of cancer Brother Hx of cancer of lung Family history of problems with anesthesia: No Surgical History Surgical History History of Achilles tendon repair History of biopsy History of colonoscopy History of endoscopy History of repair of hiatal hernia (~06/01/18) History of Problems with Anesthesia: No Social History Social History Household Members: None Alcohol intake: never Patient Tobacco Use Status: Former Tobacco user Quit Date: quit 5 yrs ago Tobacco use type: Cigarette Second Hand Smoke Exposure: No Use of substances other than those prescribed or required for medical reasons: No Are you DNR?: Yes Advance Directives: No Advance Directives Information Provided: Yes Meds Allergies Allergy/AdvReac Type Severity Reaction Status Date / Time No Known Allergies Allergy Verified 09/09/22 14:36 [No Known Allergies*] Home Medications Medication Instructions Recorded Confirmed Last Taken Type albuterol sulfate 90 mcg/actuation 2 puff inhalation Q6H PRN Wheezing 03/23/20 09/09/22 Unknown History aerosol inhaler (ProAir HFA) clonazepam 1 mg tablet 1 mg PO DAILY 03/23/20 09/09/22 Unknown History ipratropium 0.5 mg-albuterol 3 mg 3 ml inhalation Q6-8H PRN Wheezing 03/23/20 09/09/22 Unknown History (2.5 mg base)/3 mL nebulization soln naloxone 4 mg/actuation nasal 4 mg intranasal Q2M PRN Opioid 03/23/20 09/09/22 Unknown History spray (Narcan) Overdose tramadol 50 mg tablet 50 mg PO DAILY 03/23/20 09/09/22 Unknown History atorvastatin 20 mg tablet 20 mg PO BEDTIME 01/27/22 09/09/22 Unknown History dextroamphetamine-amphetamine 10 1 tab PO DAILY 01/27/22 09/09/22 Unknown History mg tablet gabapentin 600 mg tablet 0 mg PO 01/27/22 08/18/22 Unknown History lamotrigine 200 mg tablet 200 mg PO BID 01/27/22 09/09/22 Unknown History metoprolol tartrate 25 mg tablet 25 mg PO BID 01/27/22 09/09/22 Unknown History paliperidone 3 mg tablet,extended 3 mg PO DAILY 01/27/22 09/09/22 Unknown History release 24 hr (Invega) paliperidone 6 mg tablet,extended 6 mg PO QAM 01/27/22 08/18/22 Unknown History release 24 hr (Invega) sildenafil 100 mg tablet (Viagra) 100 mg PO DAILY PRN Sexual Activity 01/27/22 09/09/22 Unknown History cyclobenzaprine 10 mg tablet 10 mg PO TID PRN Muscle Spasm 06/09/22 09/09/22 Unknown History ipratropium 20 mcg-albuterol 100 1 puff inhalation QID PRN Wheezing 06/09/22 08/18/22 Unknown History mcg/actuation mist for inhalation (Combivent Respimat) Exam Exam Date and Time: September 13, 2022 1157 Narrative Narrative: EKG 11/2021 Vent. Rate : 086 BPM ? ? Atrial Rate : 086 BPM ?? P-R Int : 158 ms? QRS Dur : 088 ms ? ? QT Int : 386 ms ? ? ? P-R-T Axes : 059 -05 036 degrees ?? QTc Int : 461 ms ? Normal sinus rhythm Normal ECG When compared with ECG of 01-FEB-2019 20:39, No significant change was found Assessment and Plan Assessment Anesthesia Assessment: Chart Reviewed Final Anesthetic Review Family History of Problems with Anesthesia: No History of Problems with Anesthesia: No Documented by User: Kassidy Pantoja MD 09/14/22 09:40 [facility] Past Medical History Medical History Anxiety Anxiety Ascending aorta dilatation Bipolar disorder COPD (chronic obstructive pulmonary disease) GERD without esophagitis Hiatal hernia without gangrene or obstruction History of drug abuse History of ETOH abuse Hyperlipidemia Hypertension Hypoxemia 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 On beta mariano at home Personal history of nicotine dependence Pulmonary nodules Family History Family History Father History of heart attack Mother History of COPD Sister History of cancer Brother Hx of cancer of lung Surgical History Surgical History History of Achilles tendon repair History of biopsy History of colonoscopy History of endoscopy History of repair of hiatal hernia (~06/01/18) Social History Social History Household Members: None Alcohol intake: never Patient Tobacco Use Status: Former Tobacco user Quit Date: quit 5 yrs ago Tobacco use type: Cigarette Second Hand Smoke Exposure: No Use of substances other than those prescribed or required for medical reasons: No Are you DNR?: Yes Advance Directives: No Advance Directives Information Provided: Yes Meds Allergies Allergy/AdvReac Type Severity Reaction Status Date / Time No Known Allergies Allergy Verified 09/09/22 14:36 [No Known Allergies*] Home Medications Medication Instructions Recorded Confirmed Last Taken Type albuterol sulfate 90 mcg/actuation 2 puff inhalation Q6H PRN Wheezing 03/23/20 09/09/22 Unknown History aerosol inhaler (ProAir HFA) clonazepam 1 mg tablet 1 mg PO DAILY 03/23/20 09/09/22 Unknown History ipratropium 0.5 mg-albuterol 3 mg 3 ml inhalation Q6-8H PRN Wheezing 03/23/20 09/09/22 Unknown History (2.5 mg base)/3 mL nebulization soln naloxone 4 mg/actuation nasal 4 mg intranasal Q2M PRN Opioid 03/23/20 09/09/22 Unknown History spray (Narcan) Overdose tramadol 50 mg tablet 50 mg PO DAILY 03/23/20 09/09/22 Unknown History atorvastatin 20 mg tablet 20 mg PO BEDTIME 01/27/22 09/09/22 Unknown History dextroamphetamine-amphetamine 10 1 tab PO DAILY 01/27/22 09/09/22 Unknown History mg tablet gabapentin 600 mg tablet 0 mg PO 01/27/22 08/18/22 Unknown History lamotrigine 200 mg tablet 200 mg PO BID 01/27/22 09/09/22 Unknown History metoprolol tartrate 25 mg tablet 25 mg PO BID 01/27/22 09/09/22 Unknown History paliperidone 3 mg tablet,extended 3 mg PO DAILY 01/27/22 09/09/22 Unknown History release 24 hr (Invega) paliperidone 6 mg tablet,extended 6 mg PO QAM 01/27/22 08/18/22 Unknown History release 24 hr (Invega) sildenafil 100 mg tablet (Viagra) 100 mg PO DAILY PRN Sexual Activity 01/27/22 09/09/22 Unknown History cyclobenzaprine 10 mg tablet 10 mg PO TID PRN Muscle Spasm 06/09/22 09/09/22 Unknown History ipratropium 20 mcg-albuterol 100 1 puff inhalation QID PRN Wheezing 06/09/22 08/18/22 Unknown History mcg/actuation mist for inhalation (Combivent Respimat) Exam Airway Mallampati Class: I TM Dist: >3cm Neck ROM: Full Loose/Missing/Broken Teeth: Yes, Upper and Lower Assessment and Plan Assessment Anesthesia Assessment: Anesthesia Plan Discussed Final Anesthetic Review NPO: Yes ASA Class: III Final Preanesthetic Review: No Changes in Pt Med Stat, Meds/Allgs Chart Reviewed, Consent Obtained/Reviewed, Anes Risks/Benef Reviewed and DNR Form (If Appl.) Patient Risk: Intermediate Procedure Risk: Low Anesthetic Plan Anesthetic Plan: MAC: Disposition: Standard PACU
[2022-09-14 09:25] VITALS: BMI 28.4
[2022-09-14 09:26] VITALS: BP 119/78; PULSE 86; RESP 20; TEMP 36.1; O2SAT 99
[2022-09-14] MEDS: Lactated Ringers 1,000 ML 100 ML IVCONT (09:28)
--- NOTE | 2022-09-14 09:40 | W.PM.OPN ---
Operative Note Operative Note Date of Service: 09/14/22 Narrative: FLEXIBLE TRANSORAL UPPER GASTROINTESTINAL ENDOSCOPY WITH BIOPSIES Pre-op diagnosis: GERD, dysphagia, esophageal stricture Post-op diagnosis: Same Endoscopist:? Melissa Handy MD Anesthesia:?MAC Consent: Indications for the procedure and potential complications of bleeding, perforation, reaction to medications and missed diagnosis were discussed with the patient and informed consent was obtained. Instrument: Olympus GIF H 190 mid size upper endoscope Monitoring: Vital signs and clinical assessment, continuous EKG monitoring, Pulse oximetry, Carbon Dioxide monitoring and blood pressure monitoring were done throughout the procedure. Procedure: The patient was placed in the left lateral decubitis position and pre-procedure medications were administered and a bite block was placed. The endoscope was inserted into the mouth and advanced under direct vision to the third part of duodenum. A careful inspection was made as the upper endoscope was withdrawn including a retroflexed examination of the proximal stomach; Findings and interventions are described below. Findings: Larynx: Scarring with thickening of vocal cords with healed ulcer seen on past EGD Esophagus:? Focal ulceration at 34 to 36 cms with luminal narrowing - biopsies obtained during last EGD were benign.? Hiatal hernia 36 to 40 cms.? Balloon dilation was performed with 13.5 and 14 mm CRE balloon for 60 sec at each level. Unable to dilate to 15 mm due to excessive resistance Stomach: Mild gastric erythema. Biopsies obtained on past EGD were negative for HP. Grade 3 flap valve and slipped fundal wrap seen on retroflexed examination of the cardia. Duodenum:? Normal bulb and descending duodenum Intervention: Esophageal balloon dilation as noted above Impression and Post Procedure Diagnosis: Endoscopy Findings: LARYNX: Scarring with thickening of vocal cords with healed ulcer seen on past EGD ESOPHAGUS: Focal esophagitis with stricture from 34 to 36 cms - dilated to 14 mm with a CRE balloon and biopsied. STOMACH: Mild gastric erythema. Biopsies obtained on past EGD were negative for HP. Grade 3 flap valve and slipped fundal wrap seen on retroflexed examination of the cardia. Plan: I will contact the patient with pathology results Patient has an appointment on 12/15/22 in the [facility] with Melissa Handy M.D. Above findings were reviewed with the patient and Esophageal Stricture? and Esophageal dilation handouts were given in the discharge area Repeat EGD with balloon dilation of esophageal stricture and Kanalog injection in 2-3 weeks
--- NOTE | 2022-09-14 09:40 | MHC.SHP ---
Pre-Procedural Eval Section A Date of Service: 09/14/22 The patient is an INPATIENT: No Changes since office visit: Yes Patient answered all questions; No Cold of Flu in the past 2 weeks, No New Medical Problems and No Changes in Medication The History & Physical has been completed within 30 days and I have reviewed it.: Yes Section B Chief Complaint: Diaphragmatic hernia , Anemia Allergies: Allergies Allergy/AdvReac Type Severity Reaction Status Date / Time No Known Allergies Allergy Verified 09/09/22 14:36 [No Known Allergies*] Plan I have reviewed the history and physical and performed a pertinent physical examination on my patient. No changes have occurred unless specified. Time Spent With Patient Time: Total time managing care of this patient today ____ minutes.
[2022-09-14] MEDS: Albuterol Sulfate (0.083%) 2.5 MG/3 ML VIAL.NEB INHALE (09:56)
[2022-09-14 09:57] VITALS: PULSE 72; RESP 18; O2SAT 98
[2022-09-14 10:30] VITALS: BP 87/55; PULSE 82; RESP 20; TEMP 36.3; O2SAT 95
[2022-09-14 10:45] VITALS: BP 90/57; PULSE 81; RESP 18; O2SAT 98
[2022-09-14 10:54] VITALS: BP 112/67; PULSE 78; RESP 98; TEMP 36.4; O2SAT 98
== END 2022-09-14 11:52 | disposition home or self-care (01) ==
PROVIDERS: PCP Registered Nurse; Visit Provider Internal Medicine Gastroenterology
PROC: (CPT 43249; principal; 2022-09-14 09:30)
DX: K21.9 Gastro-esophageal reflux disease without esophagitis (principal); R13.10 Dysphagia, unspecified; K22.2 Esophageal obstruction; D64.9 Anemia, unspecified; K20.80 Other esophagitis without bleeding; K44.9 Diaphragmatic hernia without obstruction or gangrene; J44.9 Chronic obstructive pulmonary disease, unspecified; R91.8 Other nonspecific abnormal finding of lung field; Z99.81 Dependence on supplemental oxygen; Z66 Do not resuscitate; I10 Essential (primary) hypertension; E78.5 Hyperlipidemia, unspecified; F31.9 Bipolar disorder, unspecified; F41.1 Generalized anxiety disorder; F10.11 Alcohol abuse, in remission; F14.11 Cocaine abuse, in remission; Z79.899 Other long term (current) drug therapy; Z87.891 Personal history of nicotine dependence
CPT/HCPCS: 43249; 43239; 94640; C1726

== ENCOUNTER → 2022-09-19 13:26 | Outpatient (BNVA) | payer MEDICAID, SELFPAY | PROVIDERS: PCP Registered Nurse; Visit Provider Internal Medicine Gastroenterology | DX: K21.9 Gastro-esophageal reflux disease without esophagitis (principal); K22.2 Esophageal obstruction; K44.9 Diaphragmatic hernia without obstruction or gangrene; Z79.52 Long term (current) use of systemic steroids | CPT/HCPCS: 99212 ==

== ENCOUNTER → 2022-09-22 15:58 | Outpatient (BNVA) | payer MEDICAID, SELFPAY | PROVIDERS: PCP Registered Nurse; Visit Provider Internal Medicine | DX: J44.9 Chronic obstructive pulmonary disease, unspecified (principal); R91.8 Other nonspecific abnormal finding of lung field; Z99.81 Dependence on supplemental oxygen | CPT/HCPCS: 99212 ==

== ENCOUNTER → 2022-09-26 12:19 | Day surgery (SDC) | payer MEDICAID, SELFPAY ==
--- NOTE | 2022-09-23 12:28 | HO.ANESPROP2 ---
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 [facility] Active Problems Active Problems: All Active Problems (Updated 09/22/22 @ 16:24 by Chirag Cordova MD) Esophageal stricture (Acute) Anemia (Acute) Anxiety (Acute) O2 dependent (Acute) Personal history of nicotine dependence (Acute) Pulmonary nodules (Acute) Hypoxemia (Acute) COPD (chronic obstructive pulmonary disease) (Acute) Hiatal hernia without gangrene or obstruction (Acute) GERD without esophagitis (Acute) Mass of upper lobe of left lung (Acute) Past Medical History Medical History Anxiety Anxiety Ascending aorta dilatation Bipolar disorder COPD (chronic obstructive pulmonary disease) GERD without esophagitis Hiatal hernia without gangrene or obstruction History of drug abuse History of ETOH abuse Hyperlipidemia Hypertension Hypoxemia 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 On beta mariano at home Personal history of nicotine dependence Pulmonary nodules Family History Family History Father History of heart attack Mother History of COPD Sister History of cancer Brother Hx of cancer of lung Family history of problems with anesthesia: No Surgical History Surgical History History of Achilles tendon repair History of biopsy History of colonoscopy History of endoscopy History of repair of hiatal hernia (~06/01/18) History of Problems with Anesthesia: No Social History Social History Household Members: None Alcohol intake: never Patient Tobacco Use Status: Former Tobacco user Quit Date: quit 5 yrs ago Tobacco use type: Cigarette Second Hand Smoke Exposure: No Use of substances other than those prescribed or required for medical reasons: No Are you DNR?: No Advance Directives: No Advance Directives Information Provided: Yes Recently lost weight without trying: No Nutrition Risks: No Nutritional Risk Meds Allergies Allergy/AdvReac Type Severity Reaction Status Date / Time No Known Allergies Allergy Verified 09/22/22 16:09 [No Known Allergies*] Home Medications Medication Instructions Recorded Confirmed Last Taken Type albuterol sulfate 90 mcg/actuation 2 puff inhalation Q6H PRN Wheezing 03/23/20 09/19/22 Unknown History aerosol inhaler (ProAir HFA) clonazepam 1 mg tablet 1 mg PO DAILY 03/23/20 09/19/22 Unknown History ipratropium 0.5 mg-albuterol 3 mg 3 ml inhalation Q6-8H PRN Wheezing 03/23/20 09/19/22 Unknown History (2.5 mg base)/3 mL nebulization soln naloxone 4 mg/actuation nasal 4 mg intranasal Q2M PRN Opioid 03/23/20 09/19/22 Unknown History spray (Narcan) Overdose tramadol 50 mg tablet 50 mg PO DAILY 03/23/20 09/19/22 Unknown History atorvastatin 20 mg tablet 20 mg PO BEDTIME 01/27/22 09/19/22 Unknown History dextroamphetamine-amphetamine 10 1 tab PO DAILY 01/27/22 09/19/22 Unknown History mg tablet gabapentin 600 mg tablet 0 mg PO 01/27/22 09/19/22 Unknown History lamotrigine 200 mg tablet 200 mg PO BID 01/27/22 09/19/22 Unknown History metoprolol tartrate 25 mg tablet 25 mg PO BID 01/27/22 09/19/22 Unknown History paliperidone 3 mg tablet,extended 3 mg PO DAILY 01/27/22 09/19/22 Unknown History release 24 hr (Invega) paliperidone 6 mg tablet,extended 6 mg PO QAM 01/27/22 09/19/22 Unknown History release 24 hr (Invega) sildenafil 100 mg tablet (Viagra) 100 mg PO DAILY PRN Sexual Activity 01/27/22 09/19/22 Unknown History cyclobenzaprine 10 mg tablet 10 mg PO TID PRN Muscle Spasm 06/09/22 09/19/22 Unknown History ipratropium 20 mcg-albuterol 100 1 puff inhalation QID PRN Wheezing 06/09/22 09/19/22 Unknown History mcg/actuation mist for inhalation (Combivent Respimat) Exam Exam Date and Time: September 23, 2022 1228 Narrative Narrative: EKG 11/2021 Vent. Rate : 086 BPM ? ? Atrial Rate : 086 BPM ?? P-R Int : 158 ms? QRS Dur : 088 ms ? ? QT Int : 386 ms ? ? ? P-R-T Axes : 059 -05 036 degrees ?? QTc Int : 461 ms ? Normal sinus rhythm Normal ECG When compared with ECG of 01-FEB-2019 20:39, No significant change was found Assessment and Plan Assessment Anesthesia Assessment: Chart Reviewed Final Anesthetic Review Family History of Problems with Anesthesia: No History of Problems with Anesthesia: No
[2022-09-26 13:25] VITALS: BMI 26.9
[2022-09-26 13:27] VITALS: BP 127/87; PULSE 105; RESP 24; TEMP 36.8; O2SAT 97
[2022-09-26] MEDS: Lactated Ringers 1,000 ML 100 ML IVCONT (13:41)
--- NOTE | 2022-09-26 14:02 | HO.ANESPROP2 ---
[facility] Active Problems Active Problems: All Active Problems (Updated 09/22/22 @ 16:24 by Chirag Cordova MD) Esophageal stricture (Acute) Anemia (Acute) Anxiety (Acute) O2 dependent (Acute) Personal history of nicotine dependence (Acute) Pulmonary nodules (Acute) Hypoxemia (Acute) COPD (chronic obstructive pulmonary disease) (Acute) Hiatal hernia without gangrene or obstruction (Acute) GERD without esophagitis (Acute) Mass of upper lobe of left lung (Acute) Past Medical History Medical History Anxiety Anxiety Ascending aorta dilatation Bipolar disorder COPD (chronic obstructive pulmonary disease) GERD without esophagitis Hiatal hernia without gangrene or obstruction History of drug abuse History of ETOH abuse Hyperlipidemia Hypertension Hypoxemia 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 On beta mariano at home Personal history of nicotine dependence Pulmonary nodules Family History Family History Father History of heart attack Mother History of COPD Sister History of cancer Brother Hx of cancer of lung Family history of problems with anesthesia: No Surgical History Surgical History History of Achilles tendon repair History of biopsy History of colonoscopy History of endoscopy History of repair of hiatal hernia (~06/01/18) History of Problems with Anesthesia: No Social History Social History Household Members: None Alcohol intake: never Patient Tobacco Use Status: Former Tobacco user Quit Date: quit 5 yrs ago Tobacco use type: Cigarette Second Hand Smoke Exposure: No Use of substances other than those prescribed or required for medical reasons: No Are you DNR?: No Advance Directives: No Advance Directives Information Provided: Yes Recently lost weight without trying: No Nutrition Risks: No Nutritional Risk Meds Allergies Allergy/AdvReac Type Severity Reaction Status Date / Time No Known Allergies Allergy Verified 09/22/22 16:09 [No Known Allergies*] Active Medications: Current Medications Albuterol Sulfate (Albuterol Sulfate (0.083%) 2.5 Mg/3 Ml Vial.Neb) 2.5 mg INHALE ONCE PRN PRN Reason: Shortness of Breath/Wheezing Lactated Ringer's (Lr) 1,000 mls @ 100 mls/hr IVCONT .Q10H MARTINA Last Admin: 09/26/22 13:41 Dose: 100 mls/hr Home Medications Medication Instructions Recorded Confirmed Last Taken Type albuterol sulfate 90 mcg/actuation 2 puff inhalation Q6H PRN Wheezing 03/23/20 09/19/22 Unknown History aerosol inhaler (ProAir HFA) clonazepam 1 mg tablet 1 mg PO DAILY 03/23/20 09/19/22 Unknown History ipratropium 0.5 mg-albuterol 3 mg 3 ml inhalation Q6-8H PRN Wheezing 03/23/20 09/19/22 Unknown History (2.5 mg base)/3 mL nebulization soln naloxone 4 mg/actuation nasal 4 mg intranasal Q2M PRN Opioid 03/23/20 09/19/22 Unknown History spray (Narcan) Overdose tramadol 50 mg tablet 50 mg PO DAILY 03/23/20 09/19/22 Unknown History atorvastatin 20 mg tablet 20 mg PO BEDTIME 01/27/22 09/19/22 Unknown History dextroamphetamine-amphetamine 10 1 tab PO DAILY 01/27/22 09/19/22 Unknown History mg tablet gabapentin 600 mg tablet 0 mg PO 01/27/22 09/19/22 Unknown History lamotrigine 200 mg tablet 200 mg PO BID 01/27/22 09/19/22 Unknown History metoprolol tartrate 25 mg tablet 25 mg PO BID 01/27/22 09/19/22 Unknown History paliperidone 3 mg tablet,extended 3 mg PO DAILY 01/27/22 09/19/22 Unknown History release 24 hr (Invega) paliperidone 6 mg tablet,extended 6 mg PO QAM 01/27/22 09/19/22 Unknown History release 24 hr (Invega) sildenafil 100 mg tablet (Viagra) 100 mg PO DAILY PRN Sexual Activity 01/27/22 09/19/22 Unknown History cyclobenzaprine 10 mg tablet 10 mg PO TID PRN Muscle Spasm 06/09/22 09/19/22 Unknown History ipratropium 20 mcg-albuterol 100 1 puff inhalation QID PRN Wheezing 06/09/22 09/19/22 Unknown History mcg/actuation mist for inhalation (Combivent Respimat) Exam Exam Date and Time: September 26, 2022 1402 Height,Weight and Vital Signs: Height 5 ft 10 in Weight 85.275 kg Last Vital Signs Temp 98.2 F 09/26/22 13:27 Pulse 105 H 09/26/22 13:27 Resp 24 H 09/26/22 13:27 BP 127/87 09/26/22 13:27 Pulse Ox 97 09/26/22 13:27 O2 Del Method Nasal Cannula 09/26/22 13:27 O2 Flow Rate 3 09/26/22 13:27 Airway Mallampati Class: II TM Dist: >3cm Neck ROM: Full Heart: RRR Lungs: CTA Assessment and Plan Final Anesthetic Review Family History of Problems with Anesthesia: No History of Problems with Anesthesia: No NPO: Yes ASA Class: III Final Preanesthetic Review: Meds/Allgs Chart Reviewed, Consent Obtained/Reviewed and Anes Risks/Benef Reviewed Patient Risk: Intermediate Procedure Risk: Low Anesthetic Plan Anesthetic Plan: MAC: Disposition: Standard PACU
--- NOTE | 2022-09-26 14:13 | HO.ANESPROP2 ---
FORMERLY [facility], [facility] Active Problems Active Problems: All Active Problems (Updated 09/22/22 @ 16:24 by Chirag Cordova MD) Esophageal stricture (Acute) Anemia (Acute) Anxiety (Acute) O2 dependent (Acute) Personal history of nicotine dependence (Acute) Pulmonary nodules (Acute) Hypoxemia (Acute) COPD (chronic obstructive pulmonary disease) (Acute) Hiatal hernia without gangrene or obstruction (Acute) GERD without esophagitis (Acute) Mass of upper lobe of left lung (Acute) Past Medical History Medical History Anxiety Anxiety Ascending aorta dilatation Bipolar disorder COPD (chronic obstructive pulmonary disease) GERD without esophagitis Hiatal hernia without gangrene or obstruction History of drug abuse History of ETOH abuse Hyperlipidemia Hypertension Hypoxemia 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 On beta mariano at home Personal history of nicotine dependence Pulmonary nodules Family History Family History Father History of heart attack Mother History of COPD Sister History of cancer Brother Hx of cancer of lung Family history of problems with anesthesia: No Surgical History Surgical History History of Achilles tendon repair History of biopsy History of colonoscopy History of endoscopy History of repair of hiatal hernia (~06/01/18) History of Problems with Anesthesia: No Social History Social History Household Members: None Alcohol intake: never Patient Tobacco Use Status: Former Tobacco user Quit Date: quit 5 yrs ago Tobacco use type: Cigarette Second Hand Smoke Exposure: No Use of substances other than those prescribed or required for medical reasons: No Are you DNR?: No Advance Directives: No Advance Directives Information Provided: Yes Recently lost weight without trying: No Nutrition Risks: No Nutritional Risk Meds Allergies Allergy/AdvReac Type Severity Reaction Status Date / Time No Known Allergies Allergy Verified 09/22/22 16:09 [No Known Allergies*] Active Medications: Current Medications Albuterol Sulfate (Albuterol Sulfate (0.083%) 2.5 Mg/3 Ml Vial.Neb) 2.5 mg INHALE ONCE PRN PRN Reason: Shortness of Breath/Wheezing Lactated Ringer's (Lr) 1,000 mls @ 100 mls/hr IVCONT .Q10H MARTINA Last Admin: 09/26/22 13:41 Dose: 100 mls/hr Triamcinolone Acetonide (Triamcinolone Acetonide 40 Mg/Ml Vial) 20 mg IM ONCE ONE Stop: 09/26/22 14:09 Home Medications Medication Instructions Recorded Confirmed Last Taken Type albuterol sulfate 90 mcg/actuation 2 puff inhalation Q6H PRN Wheezing 03/23/20 09/19/22 Unknown History aerosol inhaler (ProAir HFA) clonazepam 1 mg tablet 1 mg PO DAILY 03/23/20 09/19/22 Unknown History ipratropium 0.5 mg-albuterol 3 mg 3 ml inhalation Q6-8H PRN Wheezing 03/23/20 09/19/22 Unknown History (2.5 mg base)/3 mL nebulization soln naloxone 4 mg/actuation nasal 4 mg intranasal Q2M PRN Opioid 03/23/20 09/19/22 Unknown History spray (Narcan) Overdose tramadol 50 mg tablet 50 mg PO DAILY 03/23/20 09/19/22 Unknown History atorvastatin 20 mg tablet 20 mg PO BEDTIME 01/27/22 09/19/22 Unknown History dextroamphetamine-amphetamine 10 1 tab PO DAILY 01/27/22 09/19/22 Unknown History mg tablet gabapentin 600 mg tablet 0 mg PO 01/27/22 09/19/22 Unknown History lamotrigine 200 mg tablet 200 mg PO BID 01/27/22 09/19/22 Unknown History metoprolol tartrate 25 mg tablet 25 mg PO BID 01/27/22 09/19/22 Unknown History paliperidone 3 mg tablet,extended 3 mg PO DAILY 01/27/22 09/19/22 Unknown History release 24 hr (Invega) paliperidone 6 mg tablet,extended 6 mg PO QAM 01/27/22 09/19/22 Unknown History release 24 hr (Invega) sildenafil 100 mg tablet (Viagra) 100 mg PO DAILY PRN Sexual Activity 01/27/22 09/19/22 Unknown History cyclobenzaprine 10 mg tablet 10 mg PO TID PRN Muscle Spasm 06/09/22 09/19/22 Unknown History ipratropium 20 mcg-albuterol 100 1 puff inhalation QID PRN Wheezing 06/09/22 09/19/22 Unknown History mcg/actuation mist for inhalation (Combivent Respimat) Exam Exam Date and Time: September 26, 2022 1413 Height,Weight and Vital Signs: Height 5 ft 10 in Weight 85.275 kg Last Vital Signs Temp 98.2 F 09/26/22 13:27 Pulse 105 H 09/26/22 13:27 Resp 24 H 09/26/22 13:27 BP 127/87 09/26/22 13:27 Pulse Ox 97 09/26/22 13:27 O2 Del Method Nasal Cannula 09/26/22 13:27 O2 Flow Rate 3 09/26/22 13:27 Airway Mallampati Class: II TM Dist: >3cm Neck ROM: Full Denture: Upper and Lower Heart: RRR Lungs: BS diminished Assessment and Plan Final Anesthetic Review Family History of Problems with Anesthesia: No History of Problems with Anesthesia: No ASA Class: III Final Preanesthetic Review: Meds/Allgs Chart Reviewed, Consent Obtained/Reviewed and Anes Risks/Benef Reviewed Patient Risk: Intermediate Procedure Risk: Low Anesthetic Plan Anesthetic Plan: MAC: Disposition: Standard PACU
--- NOTE | 2022-09-26 14:51 | MHC.SHP ---
Pre-Procedural Eval Section A Date of Service: 09/26/22 The patient is an INPATIENT: No Changes since office visit: Yes Patient answered all questions; No Cold of Flu in the past 2 weeks, No New Medical Problems and No Changes in Medication The History & Physical has been completed within 30 days and I have reviewed it.: Yes Section B Chief Complaint: Anemi,GERD,Diaphragmatic hernia,Esophageal obstru Allergies: Allergies Allergy/AdvReac Type Severity Reaction Status Date / Time No Known Allergies Allergy Verified 09/22/22 16:09 [No Known Allergies*] Plan I have reviewed the history and physical and performed a pertinent physical examination on my patient. No changes have occurred unless specified. Time Spent With Patient Time: Total time managing care of this patient today ____ minutes.
--- NOTE | 2022-09-26 14:52 | W.PM.OPN ---
Operative Note Operative Note Date of Service: 09/26/22 Narrative: FLEXIBLE TRANSORAL UPPER GASTROINTESTINAL ENDOSCOPY WITH BIOPSIES, ESOPHAGEAL BALLOON DILATION AND KENALOG INJECTION INTO ESOPHAGEAL STRICTURE Pre-op diagnosis: Dysphagia, esophageal stricture Post-op diagnosis: Esophageal stricture, esophagitis, hiatal hernia Endoscopist:? Melissa Handy MD Anesthesia:?MAC Consent: Indications for the procedure and potential complications of bleeding, perforation, reaction to medications and missed diagnosis were discussed with the patient and informed consent was obtained. Instrument: Olympus GIF H 190 mid size upper endoscope Monitoring: Vital signs and clinical assessment, continuous EKG monitoring, Pulse oximetry, Carbon Dioxide monitoring and blood pressure monitoring were done throughout the procedure. Procedure: The patient was placed in the left lateral decubitis position and pre-procedure medications were administered and a bite block was placed. The endoscope was inserted into the mouth and advanced under direct vision to the third part of duodenum. A careful inspection was made as the upper endoscope was withdrawn including a retroflexed examination of the proximal stomach; Findings and interventions are described below. Findings: Larynx: Scarring with thickening of vocal cords with healed ulcer seen on past EGD Esophagus:? Focal ulceration at 34 to 36 cms with luminal narrowing - biopsies obtained.? Hiatal hernia 36 to 40 cms.? Balloon dilation was performed with 13.5 and 15 mm CRE balloon for 60 sec at each level. Triamcinolone 40 mg was injected into the stricture - 10 mg in each quadrant Stomach: Not examined Duodenum:? Not examined Intervention: Esophageal balloon dilation and Kenalog injection as noted above Impression and Post Procedure Diagnosis: Endoscopy Findings: LARYNX: Scarring with thickening of vocal cords with healed ulcer seen on past EGD ESOPHAGUS: Focal ulceration at 34 to 36 cms with luminal narrowing - biopsies obtained.? Hiatal hernia 36 to 40 cms.? Balloon dilation was performed with 13.5 and 15 mm CRE balloon for 60 sec at each level. Triamcinolone 40 mg was injected into the stricture - 10 ml in each quadrant Plan: Await pathology results. Repeat EGD with esophageal balloon dilation in 3-4 weeks Patient has an appointment on 12/15/22 in the GI Clinic with Melissa Handy M.D.. Above findings were reviewed with the patient.
[2022-09-26 15:23] VITALS: BP 96/58; PULSE 81; RESP 16; TEMP 36.7; O2SAT 97
[2022-09-26 15:39] VITALS: BP 102/70; PULSE 87; RESP 20; TEMP 36.8; O2SAT 95
--- NOTE | 2022-09-26 15:44 | HO.POSTANES ---
Post Anesthesia Evaluation Post Anesthesia Evaluation Vital Signs: Vital Signs Temp Pulse Resp BP Pulse Ox O2 Del Method O2 Flow Rate 09/26/22 15:23 98.1 F 81 16 96/58 L 97 Nasal Cannula 2 09/26/22 13:27 98.2 F 105 H 24 H 127/87 97 Nasal Cannula 3 Anesthesia: Monitored Mental Status: Awake Pain Control: Satisfactory Nausea/Vomiting: None Hydration: Adequate Anesthesia-Related Issues: No Anes. Related Issues
== END | disposition home or self-care (01) ==
PROVIDERS: PCP Registered Nurse; Visit Provider Internal Medicine Gastroenterology
PROC: 0DJ08ZZ Inspection of Upper Intestinal Tract, Via Natural or Artificial Opening Endoscopic (ICD-10-PCS; CPT 43235; principal; 2022-09-26 13:50)
DX: K22.2 Esophageal obstruction (principal); K20.90 Esophagitis, unspecified without bleeding; K44.9 Diaphragmatic hernia without obstruction or gangrene; K21.9 Gastro-esophageal reflux disease without esophagitis; D64.9 Anemia, unspecified; I10 Essential (primary) hypertension; J43.9 Emphysema, unspecified; Z99.81 Dependence on supplemental oxygen
CPT/HCPCS: 43249; 43236; 43239; 88305; C1726; J3301

== ENCOUNTER 2022-10-07 10:03 | Day surgery (SDC) | payer MEDICAID, SELFPAY ==
--- NOTE | 2022-10-06 12:51 | HO.ANESPROP2 ---
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 PMFSH Active Problems Active Problems: All Active Problems (Updated 09/22/22 @ 16:24 by Chirag Cordova MD) Esophageal stricture (Acute) Anemia (Acute) Anxiety (Acute) O2 dependent (Acute) Personal history of nicotine dependence (Acute) Pulmonary nodules (Acute) Hypoxemia (Acute) COPD (chronic obstructive pulmonary disease) (Acute) Hiatal hernia without gangrene or obstruction (Acute) GERD without esophagitis (Acute) Mass of upper lobe of left lung (Acute) Past Medical History Medical History Anxiety Anxiety Ascending aorta dilatation Bipolar disorder COPD (chronic obstructive pulmonary disease) GERD without esophagitis Hiatal hernia without gangrene or obstruction History of drug abuse History of ETOH abuse Hyperlipidemia Hypertension Hypoxemia 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 On beta mariano at home Personal history of nicotine dependence Pulmonary nodules Family History Family History Father History of heart attack Mother History of COPD Sister History of cancer Brother Hx of cancer of lung Family history of problems with anesthesia: No Surgical History Surgical History History of Achilles tendon repair History of biopsy History of colonoscopy History of endoscopy History of repair of hiatal hernia (~06/01/18) History of Problems with Anesthesia: No Social History Social History Household Members: None Alcohol intake: never Patient Tobacco Use Status: Former Tobacco user Quit Date: 6 years ago Tobacco use type: Cigarette Second Hand Smoke Exposure: No Use of substances other than those prescribed or required for medical reasons: No Are you DNR?: No Advance Directives: No Advance Directives Information Provided: Yes Meds Allergies Allergy/AdvReac Type Severity Reaction Status Date / Time No Known Allergies Allergy Verified 09/22/22 16:09 [No Known Allergies*] Home Medications Medication Instructions Recorded Confirmed Last Taken Type albuterol sulfate 90 mcg/actuation 2 puff inhalation Q6H PRN Wheezing 03/23/20 10/07/22 Unknown History aerosol inhaler (ProAir HFA) clonazepam 1 mg tablet 1 mg PO DAILY 03/23/20 10/07/22 Unknown History ipratropium 0.5 mg-albuterol 3 mg 3 ml inhalation Q6-8H PRN Wheezing 03/23/20 10/07/22 Unknown History (2.5 mg base)/3 mL nebulization soln naloxone 4 mg/actuation nasal 4 mg intranasal Q2M PRN Opioid 03/23/20 09/19/22 Unknown History spray (Narcan) Overdose tramadol 50 mg tablet 50 mg PO DAILY 03/23/20 10/07/22 Unknown History atorvastatin 20 mg tablet 20 mg PO BEDTIME 01/27/22 10/07/22 Unknown History dextroamphetamine-amphetamine 10 1 tab PO DAILY 01/27/22 10/07/22 Unknown History mg tablet gabapentin 600 mg tablet 600 mg PO TID 01/27/22 10/07/22 Unknown History lamotrigine 200 mg tablet 200 mg PO BID 01/27/22 10/07/22 Unknown History metoprolol tartrate 25 mg tablet 25 mg PO BID 01/27/22 10/07/22 Unknown History paliperidone 3 mg tablet,extended 3 mg PO DAILY 01/27/22 10/07/22 Unknown History release 24 hr (Invega) paliperidone 6 mg tablet,extended 6 mg PO QAM 01/27/22 10/07/22 Unknown History release 24 hr (Invega) sildenafil 100 mg tablet (Viagra) 100 mg PO DAILY PRN Sexual Activity 01/27/22 10/07/22 Unknown History cyclobenzaprine 10 mg tablet 10 mg PO TID PRN Muscle Spasm 06/09/22 10/07/22 Unknown History ipratropium 20 mcg-albuterol 100 1 puff inhalation QID PRN Wheezing 06/09/22 10/07/22 Unknown History mcg/actuation mist for inhalation (Combivent Respimat) Exam Exam Date and Time: October 06, 2022 1251 Narrative Narrative: EKG 11/2021 Vent. Rate : 086 BPM ? ? Atrial Rate : 086 BPM ?? P-R Int : 158 ms? QRS Dur : 088 ms ? ? QT Int : 386 ms ? ? ? P-R-T Axes : 059 -05 036 degrees ?? QTc Int : 461 ms ? Normal sinus rhythm Normal ECG When compared with ECG of 01-FEB-2019 20:39, No significant change was found Assessment and Plan Assessment Anesthesia Assessment: Chart Reviewed Final Anesthetic Review Family History of Problems with Anesthesia: No History of Problems with Anesthesia: No Documented by User: Hailey Dunne MD 10/07/22 11:37 PMF Past Medical History Medical History Anxiety Anxiety Ascending aorta dilatation Bipolar disorder COPD (chronic obstructive pulmonary disease) GERD without esophagitis Hiatal hernia without gangrene or obstruction History of drug abuse History of ETOH abuse Hyperlipidemia Hypertension Hypoxemia 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 On beta mariano at home Personal history of nicotine dependence Pulmonary nodules Family History Family History Father History of heart attack Mother History of COPD Sister History of cancer Brother Hx of cancer of lung Surgical History Surgical History History of Achilles tendon repair History of biopsy History of colonoscopy History of endoscopy History of repair of hiatal hernia (~06/01/18) Social History Social History Household Members: None Alcohol intake: never Patient Tobacco Use Status: Former Tobacco user Quit Date: 6 years ago Tobacco use type: Cigarette Second Hand Smoke Exposure: No Use of substances other than those prescribed or required for medical reasons: No Are you DNR?: No Advance Directives: No Advance Directives Information Provided: Yes Meds Allergies Allergy/AdvReac Type Severity Reaction Status Date / Time No Known Allergies Allergy Verified 09/22/22 16:09 [No Known Allergies*] Home Medications Medication Instructions Recorded Confirmed Last Taken Type albuterol sulfate 90 mcg/actuation 2 puff inhalation Q6H PRN Wheezing 03/23/20 10/07/22 Unknown History aerosol inhaler (ProAir HFA) clonazepam 1 mg tablet 1 mg PO DAILY 03/23/20 10/07/22 Unknown History ipratropium 0.5 mg-albuterol 3 mg 3 ml inhalation Q6-8H PRN Wheezing 03/23/20 10/07/22 Unknown History (2.5 mg base)/3 mL nebulization soln naloxone 4 mg/actuation nasal 4 mg intranasal Q2M PRN Opioid 03/23/20 09/19/22 Unknown History spray (Narcan) Overdose tramadol 50 mg tablet 50 mg PO DAILY 03/23/20 10/07/22 Unknown History atorvastatin 20 mg tablet 20 mg PO BEDTIME 01/27/22 10/07/22 Unknown History dextroamphetamine-amphetamine 10 1 tab PO DAILY 01/27/22 10/07/22 Unknown History mg tablet gabapentin 600 mg tablet 600 mg PO TID 01/27/22 10/07/22 Unknown History lamotrigine 200 mg tablet 200 mg PO BID 01/27/22 10/07/22 Unknown History metoprolol tartrate 25 mg tablet 25 mg PO BID 01/27/22 10/07/22 Unknown History paliperidone 3 mg tablet,extended 3 mg PO DAILY 01/27/22 10/07/22 Unknown History release 24 hr (Invega) paliperidone 6 mg tablet,extended 6 mg PO QAM 01/27/22 10/07/22 Unknown History release 24 hr (Invega) sildenafil 100 mg tablet (Viagra) 100 mg PO DAILY PRN Sexual Activity 01/27/22 10/07/22 Unknown History cyclobenzaprine 10 mg tablet 10 mg PO TID PRN Muscle Spasm 06/09/22 10/07/22 Unknown History ipratropium 20 mcg-albuterol 100 1 puff inhalation QID PRN Wheezing 06/09/22 10/07/22 Unknown History mcg/actuation mist for inhalation (Combivent Respimat) Exam Airway Mallampati Class: II (edentulous) TM Dist: >3cm Neck ROM: Full Heart: rrr Lungs: cta Assessment and Plan Assessment Anesthesia Assessment: Anesthesia Plan Discussed Final Anesthetic Review NPO: Yes ASA Class: III Final Preanesthetic Review: No Changes in Pt Med Stat, Meds/Allgs Chart Reviewed and Consent Obtained/Reviewed Patient Risk: Intermediate Procedure Risk: Intermediate Anesthetic Plan Anesthetic Plan: MAC: Disposition: Standard PACU
[2022-10-07 10:33] VITALS: BMI 27.1
[2022-10-07 10:37] VITALS: BP 120/74; PULSE 84; RESP 18; TEMP 36.9; O2SAT 96
[2022-10-07 10:41] LABS: Hematocrit 32.4 % (42.0-52.0); Hemoglobin 10.1 g/dl (14.0-18.0); Mean Corpuscular HGB Conc 31.2 g/dl (31.0-36.0); Mean Corpuscular Hemoglobin 30.3 pg (27.0-33.0); Mean Corpuscular Volume 97.3 fL (80.0-98.0); Mean Platelet Volume 12.4 fL (9.4-12.4); Platelet Count 105 X10*3/uL (160-400); Red Blood Count 3.33 X10*6/uL (4.60-5.80); Red Cell Distribution Width 17.2 % (11.0-16.0); White Blood Count 4.4 X10*3/uL (4.8-10.8)
[2022-10-07 10:42] VITALS: BMI 27.1
[2022-10-07 10:54] LABS: Anion Gap 11 (12-20); Blood Urea Nitrogen 6 mg/dL (9-16); Carbon Dioxide 24 mmol/L (22-29); Chloride 111 mmol/L (96-108); Creatinine Clr Calc Pharmacy 89.5; Estimated Glomerular Filt Rate > 60; Glucose Fasting 104 mg/dL (60-99); Potassium 3.7 mmol/L (3.3-5.1); Sodium 142 mmol/L (135-145)
--- NOTE | 2022-10-07 10:56 | MHC.SHP ---
Pre-Procedural Eval Section A Date of Service: 10/07/22 The patient is an INPATIENT: No Changes since office visit: Yes Patient answered all questions; No Cold of Flu in the past 2 weeks, No New Medical Problems and No Changes in Medication The History & Physical has been completed within 30 days and I have reviewed it.: Yes Section B Chief Complaint: Esophageal obstruction,gerd,anemia,diaphragmatic h Allergies: Allergies Allergy/AdvReac Type Severity Reaction Status Date / Time No Known Allergies Allergy Verified 09/22/22 16:09 [No Known Allergies*] Plan I have reviewed the history and physical and performed a pertinent physical examination on my patient. No changes have occurred unless specified. Time Spent With Patient Time: Total time managing care of this patient today ____ minutes.
[2022-10-07] MEDS: Lactated Ringers 1,000 ML 100 ML IVCONT (11:02)
[2022-10-07] MEDS: Albuterol Sulfate (0.083%) 2.5 MG/3 ML VIAL.NEB INHALE (11:04)
[2022-10-07 11:05] VITALS: PULSE 85; RESP 18; O2SAT 97
--- NOTE | 2022-10-07 11:40 | W.PM.OPN ---
Operative Note Operative Note Date of Service: 10/07/22 Narrative: FLEXIBLE TRANSORAL UPPER GASTROINTESTINAL ENDOSCOPY WITH BALLOON DILATION OF ESOPHAGEAL STRICTURE Pre-op diagnosis: GERD, dysphagia, esophageal stricture Post-op diagnosis: Same Endoscopist:? Melissa Handy MD Anesthesia:?MAC Consent: Indications for the procedure and potential complications of bleeding, perforation, reaction to medications and missed diagnosis were discussed with the patient and informed consent was obtained. Instrument: Olympus GIF H 190 mid size upper endoscope Monitoring: Vital signs and clinical assessment, continuous EKG monitoring, Pulse oximetry, Carbon Dioxide monitoring and blood pressure monitoring were done throughout the procedure. Procedure: The patient was placed in the left lateral decubitis position and pre-procedure medications were administered and a bite block was placed. The endoscope was inserted into the mouth and advanced under direct vision to the third part of duodenum. A careful inspection was made as the upper endoscope was withdrawn including a retroflexed examination of the proximal stomach; Findings and interventions are described below. Findings: Larynx: Scarring with thickening of vocal cords Esophagus:? Focal ulceration at 34 to 36 cms with luminal narrowing. Hiatal hernia 36 to 40 cms.? Balloon dilation was performed with 15 and 16.5 mm CRE balloon for 60 sec at each level. Stomach: Not examined Duodenum:? Not examined Intervention: Esophageal balloon dilation?of esophageal stricture Impression and Post Procedure Diagnosis: Endoscopy Findings: ESOPHAGUS: Hiatal hernia, esophageal stricture dilated to 16.5 mm (49.5 F) Plan: Patient has an appointment on 12/15/22 in the GI Clinic with Melissa Handy M.D. Repeat EGD with balloon dilation/possible Kenalog injection in 2-4 weeks Above findings were reviewed with the patient.
[2022-10-07 12:05] VITALS: BP 103/62; PULSE 85; RESP 44; TEMP 36.2; O2SAT 95
[2022-10-07 12:19] VITALS: PULSE 87; RESP 18; O2SAT 100
[2022-10-07] MEDS: Albuterol/Iprat 2.5/0.5MG 3 ML AMPUL.NEB INHALE (12:19)
[2022-10-07 12:20] VITALS: BP 111/71; PULSE 81; RESP 26; O2SAT 97
[2022-10-07 12:35] VITALS: BP 116/67; PULSE 85; RESP 24; TEMP 37.1; O2SAT 96
== END 2022-10-07 13:30 | disposition home or self-care (01) ==
PROVIDERS: Nurse Practitioner; PCP Registered Nurse; Visit Provider Internal Medicine Gastroenterology
PROC: (CPT 43249; principal; 2022-10-07 11:40)
DX: K22.2 Esophageal obstruction (principal); K22.10 Ulcer of esophagus without bleeding; R13.10 Dysphagia, unspecified; K44.9 Diaphragmatic hernia without obstruction or gangrene; J38.3 Other diseases of vocal cords; K21.9 Gastro-esophageal reflux disease without esophagitis; D64.9 Anemia, unspecified; I10 Essential (primary) hypertension; J44.9 Chronic obstructive pulmonary disease, unspecified; Z79.899 Other long term (current) drug therapy; Z99.81 Dependence on supplemental oxygen
CPT/HCPCS: 43249; 43239; 36415; 80048; 85027; 94640; C1726

== ENCOUNTER 2022-10-14 13:55 | Day surgery (SDC) | payer MEDICAID, SELFPAY ==
[2022-10-14 14:10] VITALS: BMI 27.3
[2022-10-14 14:11] VITALS: BP 110/75; PULSE 76; RESP 18; TEMP 36.6; O2SAT 99
--- NOTE | 2022-10-14 14:28 | HO.ANESPROP2 ---
[facility] Active Problems Active Problems: All Active Problems (Updated 09/22/22 @ 16:24 by Chirag Cordova MD) Esophageal stricture (Acute) Anemia (Acute) Anxiety (Acute) O2 dependent (Acute) Personal history of nicotine dependence (Acute) Pulmonary nodules (Acute) Hypoxemia (Acute) COPD (chronic obstructive pulmonary disease) (Acute) Hiatal hernia without gangrene or obstruction (Acute) GERD without esophagitis (Acute) Mass of upper lobe of left lung (Acute) Past Medical History Medical History Anxiety Anxiety Ascending aorta dilatation Bipolar disorder COPD (chronic obstructive pulmonary disease) GERD without esophagitis Hiatal hernia without gangrene or obstruction History of drug abuse History of ETOH abuse Hyperlipidemia Hypertension Hypoxemia 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 On beta mariano at home Personal history of nicotine dependence Pulmonary nodules Family History Family History Father History of heart attack Mother History of COPD Sister History of cancer Brother Hx of cancer of lung Family history of problems with anesthesia: No Surgical History Surgical History History of Achilles tendon repair History of biopsy History of colonoscopy History of endoscopy History of repair of hiatal hernia (~06/01/18) History of Problems with Anesthesia: No Social History Social History Household Members: None Alcohol intake: never Patient Tobacco Use Status: Former Tobacco user Quit Date: 6 years ago Tobacco use type: Cigarette Second Hand Smoke Exposure: No Are you DNR?: No Advance Directives: No Advance Directives Information Provided: Yes Nutrition Risks: No Nutritional Risk Meds Allergies Allergy/AdvReac Type Severity Reaction Status Date / Time No Known Allergies Allergy Verified 09/22/22 16:09 [No Known Allergies*] Active Medications: Current Medications Lactated Ringer's (Lr) 1,000 mls @ 50 mls/hr IVCONT .Q20H [facility] Home Medications Medication Instructions Recorded Confirmed Last Taken Type albuterol sulfate 90 mcg/actuation 2 puff inhalation Q6H PRN Wheezing 03/23/20 10/07/22 Unknown History aerosol inhaler (ProAir HFA) clonazepam 1 mg tablet 1 mg PO DAILY 03/23/20 10/07/22 Unknown History ipratropium 0.5 mg-albuterol 3 mg 3 ml inhalation Q6-8H PRN Wheezing 03/23/20 10/07/22 Unknown History (2.5 mg base)/3 mL nebulization soln naloxone 4 mg/actuation nasal 4 mg intranasal Q2M PRN Opioid 03/23/20 09/19/22 Unknown History spray (Narcan) Overdose tramadol 50 mg tablet 50 mg PO DAILY 03/23/20 10/07/22 Unknown History atorvastatin 20 mg tablet 20 mg PO BEDTIME 01/27/22 10/07/22 Unknown History dextroamphetamine-amphetamine 10 1 tab PO DAILY 01/27/22 10/07/22 Unknown History mg tablet gabapentin 600 mg tablet 600 mg PO TID 01/27/22 10/07/22 Unknown History lamotrigine 200 mg tablet 200 mg PO BID 01/27/22 10/07/22 Unknown History metoprolol tartrate 25 mg tablet 25 mg PO BID 01/27/22 10/07/22 Unknown History paliperidone 3 mg tablet,extended 3 mg PO DAILY 01/27/22 10/07/22 Unknown History release 24 hr (Invega) paliperidone 6 mg tablet,extended 6 mg PO QAM 01/27/22 10/07/22 Unknown History release 24 hr (Invega) sildenafil 100 mg tablet (Viagra) 100 mg PO DAILY PRN Sexual Activity 01/27/22 10/07/22 Unknown History cyclobenzaprine 10 mg tablet 10 mg PO TID PRN Muscle Spasm 06/09/22 10/07/22 Unknown History ipratropium 20 mcg-albuterol 100 1 puff inhalation QID PRN Wheezing 06/09/22 10/07/22 Unknown History mcg/actuation mist for inhalation (Combivent Respimat) Exam Exam Date and Time: October 14, 2022 142 Height,Weight and Vital Signs: Height 5 ft 10 in Weight 86.183 kg Last Vital Signs Temp 97.9 F 10/14/22 14:11 Pulse 76 10/14/22 14:11 Resp 18 10/14/22 14:11 BP 110/75 10/14/22 14:11 Pulse Ox 99 10/14/22 14:11 O2 Del Method Nasal Cannula 10/14/22 14:11 O2 Flow Rate 3 10/14/22 14:11 Airway Mallampati Class: II TM Dist: >3cm Neck ROM: Full Assessment and Plan Assessment Anesthesia Assessment: Anesthesia Plan Discussed and Chart Reviewed Final Anesthetic Review Family History of Problems with Anesthesia: No History of Problems with Anesthesia: No NPO: Yes ASA Class: III Final Preanesthetic Review: No Changes in Pt Med Stat, Meds/Allgs Chart Reviewed, Consent Obtained/Reviewed and Anes Risks/Benef Reviewed Patient Risk: Intermediate Procedure Risk: Low Anesthetic Plan Anesthetic Plan: MAC: Disposition: Standard PACU
--- NOTE | 2022-10-14 14:52 | PC.NURSE ---
author updated Dr. Pantoja that patient has expiratory wheezes, diminished lung sounds throughout. Patient is O2 dependent at 3L via NC. VS wnl.
[2022-10-14] MEDS: Albuterol Sulfate (0.083%) 2.5 MG/3 ML VIAL.NEB INHALE (15:04)
[2022-10-14 15:05] VITALS: PULSE 71; RESP 18; O2SAT 99
--- NOTE | 2022-10-14 15:28 | PC.NURSE ---
report given to henry donahue rn at this time.
--- NOTE | 2022-10-14 16:04 | W.PM.OPN ---
Operative Note Operative Note Date of Service: 10/14/22 Narrative: FLEXIBLE TRANSORAL UPPER GASTROINTESTINAL ENDOSCOPY WITH BIOPSIES Pre-op diagnosis: Dysphagia, esophageal stricture Post-op diagnosis: same Endoscopist:? Melissa Handy MD Anesthesia:?MAC Consent: Indications for the procedure and potential complications of bleeding, perforation, reaction to medications and missed diagnosis were discussed with the patient and informed consent was obtained. Instrument: Olympus GIF H 190 mid size upper endoscope Monitoring: Vital signs and clinical assessment, continuous EKG monitoring, Pulse oximetry, Carbon Dioxide monitoring and blood pressure monitoring were done throughout the procedure. Procedure: The patient was placed in the left lateral decubitis position and pre-procedure medications were administered and a bite block was placed. The endoscope was inserted into the mouth and advanced under direct vision to the third part of duodenum. A careful inspection was made as the upper endoscope was withdrawn including a retroflexed examination of the proximal stomach; Findings and interventions are described below. Findings: Larynx: Normal Esophagus: Scarring with thickening of vocal cords Esophagus:? Focal ulceration at 34 to 36 cms with luminal narrowing. Hiatal hernia 36 to 40 cms.? Balloon dilation was performed with 15, 16.5 and 17 mm CRE balloon for 60 sec at each level. Stomach: Not examined Duodenum:? Not examined Intervention: Esophageal balloon dilation?of esophageal stricture Impression and Post Procedure Diagnosis: Endoscopy Findings: ESOPHAGUS:? Hiatal hernia, esophageal stricture dilated to 16.5 mm (49.5 F) Plan: Patient has an appointment on 12/15/22 in the GI Clinic with Melissa Handy M.D. Repeat EGD with balloon dilation/possible Kenalog injection in 4 - 6 weeks Above findings were reviewed with the patient.?
[2022-10-14 16:49] VITALS: BP 100/65; PULSE 90; RESP 24; TEMP 36.4; O2SAT 98
[2022-10-14 17:03] VITALS: BP 123/75; PULSE 89; RESP 22; O2SAT 98
[2022-10-14 17:15] VITALS: BP 120/75; PULSE 90; RESP 20; TEMP 36.7; O2SAT 96
== END 2022-10-14 17:44 | disposition home or self-care (01) ==
PROVIDERS: PCP Registered Nurse; Visit Provider Internal Medicine Gastroenterology
PROC: (CPT 43249; principal; 2022-10-14 15:10)
DX: K21.9 Gastro-esophageal reflux disease without esophagitis (principal); R13.10 Dysphagia, unspecified; K22.2 Esophageal obstruction; K22.10 Ulcer of esophagus without bleeding; K44.9 Diaphragmatic hernia without obstruction or gangrene; D64.9 Anemia, unspecified; I10 Essential (primary) hypertension; E78.5 Hyperlipidemia, unspecified; F41.1 Generalized anxiety disorder; F31.9 Bipolar disorder, unspecified; F10.11 Alcohol abuse, in remission; F14.11 Cocaine abuse, in remission; F12.21 Cannabis dependence, in remission; J44.9 Chronic obstructive pulmonary disease, unspecified; R91.8 Other nonspecific abnormal finding of lung field; R74.8 Abnormal levels of other serum enzymes; Z79.51 Long term (current) use of inhaled steroids; Z99.81 Dependence on supplemental oxygen; Z79.899 Other long term (current) drug therapy; Z87.891 Personal history of nicotine dependence
CPT/HCPCS: 43249; 94640; C1726

== ENCOUNTER 2022-11-11 10:50 | Day surgery (SDC) | payer MEDICAID, SELFPAY ==
[2022-11-11 11:01] VITALS: BMI 27.1
[2022-11-11 11:06] VITALS: BP 123/88; PULSE 90; RESP 28; TEMP 36.4; O2SAT 98
--- NOTE | 2022-11-11 11:11 | MHC.SHP ---
Pre-Procedural Eval Section A Date of Service: 11/11/22 The patient is an INPATIENT: No The History & Physical has been completed within 30 days and I have reviewed it.: No Section B Chief Complaint: Esophageal stricture Relevant Family History (Specify if Yes): No Relevant Social History: Tobacco Use (former smoker) Present Medications: see Short Stay Collaborative assessment Medical History: Significant History (Ascending aorta dilatation Bipolar disorder COPD (chronic obstructive pulmonary disease) GERD without esophagitis Hiatal hernia without gangrene or obstruction History of drug abuse History of ETOH abuse Hyperlipidemia Hypertension Hypoxemia 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) History of Previous Operations: Relevant previous surgery/procedure and date(s) (History of colonoscopy History of endoscopy History of repair of hiatal hernia (~06/01/18)) Allergies: Allergies Allergy/AdvReac Type Severity Reaction Status Date / Time No Known Allergies Allergy Verified 09/22/22 16:09 [No Known Allergies*] Review of Systems Sugical H&P ROS: Negative: Constitution, Cardiovascular, Respiratory and Gastrointestinal Exam Surgical H&P Exam: Normal: Heart, Normal: Lungs, Normal: Extremities and Normal: Abdomen Plan Diagnosis/Plan: Unchanged I have reviewed the history and physical and performed a pertinent physical examination on my patient. No changes have occurred unless specified. Time Spent With Patient Time: Total time managing care of this patient today ____ minutes.
[2022-11-11 11:29] VITALS: RESP 24
--- NOTE | 2022-11-11 12:25 | P.CONAN_ITS ---
[facility] Active Problems Active Problems: All Active Problems (Updated 09/22/22 @ 16:24 by Chirag Cordova MD) Esophageal stricture (Acute) Anemia (Acute) Anxiety (Acute) O2 dependent (Acute) Personal history of nicotine dependence (Acute) Pulmonary nodules (Acute) Hypoxemia (Acute) COPD (chronic obstructive pulmonary disease) (Acute) Hiatal hernia without gangrene or obstruction (Acute) GERD without esophagitis (Acute) Mass of upper lobe of left lung (Acute) Past Medical History Medical History Anxiety Anxiety Ascending aorta dilatation Bipolar disorder COPD (chronic obstructive pulmonary disease) GERD without esophagitis Hiatal hernia without gangrene or obstruction History of drug abuse History of ETOH abuse Hyperlipidemia Hypertension Hypoxemia 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 On beta mariano at home Personal history of nicotine dependence Pulmonary nodules Family History Family History Father History of heart attack Mother History of COPD Sister History of cancer Brother Hx of cancer of lung Family history of problems with anesthesia: No Surgical History Surgical History History of Achilles tendon repair History of biopsy History of colonoscopy History of endoscopy History of repair of hiatal hernia (~06/01/18) History of Problems with Anesthesia: No Social History Social History Household Members: None Alcohol intake: never Patient Tobacco Use Status: Former Tobacco user Quit Date: 6 years ago Tobacco use type: Cigarette Second Hand Smoke Exposure: No Use of substances other than those prescribed or required for medical reasons: No Are you DNR?: No Advance Directives: No Advance Directives Information Provided: Yes Meds Allergies Allergy/AdvReac Type Severity Reaction Status Date / Time No Known Allergies Allergy Verified 09/22/22 16:09 [No Known Allergies*] Active Medications: Current Medications Lactated Ringer's (Lr) 1,000 mls @ 50 mls/hr IVCONT .Q20H MARTINA Home Medications Medication Instructions Recorded Confirmed Last Taken Type albuterol sulfate 90 mcg/actuation 2 puff inhalation Q6H PRN Wheezing 03/23/20 10/07/22 Unknown History aerosol inhaler (ProAir HFA) clonazepam 1 mg tablet 1 mg PO DAILY 03/23/20 10/07/22 Unknown History ipratropium 0.5 mg-albuterol 3 mg 3 ml inhalation Q6-8H PRN Wheezing 03/23/20 10/07/22 Unknown History (2.5 mg base)/3 mL nebulization soln naloxone 4 mg/actuation nasal 4 mg intranasal Q2M PRN Opioid 03/23/20 09/19/22 Unknown History spray (Narcan) Overdose tramadol 50 mg tablet 50 mg PO DAILY 03/23/20 10/07/22 Unknown History atorvastatin 20 mg tablet 20 mg PO BEDTIME 01/27/22 10/07/22 Unknown History dextroamphetamine-amphetamine 10 1 tab PO DAILY 01/27/22 10/07/22 Unknown History mg tablet gabapentin 600 mg tablet 600 mg PO TID 01/27/22 10/07/22 Unknown History lamotrigine 200 mg tablet 200 mg PO BID 01/27/22 10/07/22 Unknown History metoprolol tartrate 25 mg tablet 25 mg PO BID 01/27/22 10/07/22 Unknown History paliperidone 3 mg tablet,extended 3 mg PO DAILY 01/27/22 10/07/22 Unknown History release 24 hr (Invega) paliperidone 6 mg tablet,extended 6 mg PO QAM 01/27/22 10/07/22 Unknown History release 24 hr (Invega) sildenafil 100 mg tablet (Viagra) 100 mg PO DAILY PRN Sexual Activity 01/27/22 10/07/22 Unknown History cyclobenzaprine 10 mg tablet 10 mg PO TID PRN Muscle Spasm 06/09/22 10/07/22 Unknown History ipratropium 20 mcg-albuterol 100 1 puff inhalation QID PRN Wheezing 06/09/22 10/07/22 Unknown History mcg/actuation mist for inhalation (Combivent Respimat) Exam Exam Date and Time: November 11, 2022 1225 Height,Weight and Vital Signs: Height 5 ft 10 in Weight 85.729 kg Last Vital Signs Temp 97.6 F 11/11/22 11:06 Pulse 90 11/11/22 11:06 Resp 24 H 11/11/22 11:29 BP 123/88 11/11/22 11:06 Pulse Ox 98 11/11/22 11:06 O2 Del Method Nasal Cannula 11/11/22 11:06 O2 Flow Rate 2 11/11/22 11:06 Airway Mallampati Class: II (edentulous) TM Dist: >3cm Neck ROM: Full Heart: rrr Lungs: alexia wheeze Assessment and Plan Assessment Anesthesia Assessment: Anesthesia Plan Discussed and Chart Reviewed Final Anesthetic Review Family History of Problems with Anesthesia: No History of Problems with Anesthesia: No NPO: Yes ASA Class: III Final Preanesthetic Review: No Changes in Pt Med Stat, Meds/Allgs Chart Reviewed and Consent Obtained/Reviewed Patient Risk: Intermediate Procedure Risk: Intermediate Anesthetic Plan Anesthetic Plan: MAC: Disposition: Standard PACU
--- NOTE | 2022-11-11 12:29 | W.PM.OPN ---
Operative Note Operative Note Date of Service: 11/11/22 Narrative: FLEXIBLE TRANSORAL UPPER GASTROINTESTINAL ENDOSCOPY WITH BIOPSIES Pre-op diagnosis: Dysphagia, esophageal stricture Post-op diagnosis: same Endoscopist:? Melissa Handy MD Anesthesia:?MAC Consent: Indications for the procedure and potential complications of bleeding, perforation, reaction to medications and missed diagnosis were discussed with the patient and informed consent was obtained. Instrument: Olympus GIF H 190 mid size upper endoscope Monitoring: Vital signs and clinical assessment, continuous EKG monitoring, Pulse oximetry, Carbon Dioxide monitoring and blood pressure monitoring were done throughout the procedure. Procedure: The patient was placed in the left lateral decubitis position and pre-procedure medications were administered and a bite block was placed. The endoscope was inserted into the mouth and advanced under direct vision to the third part of duodenum. A careful inspection was made as the upper endoscope was withdrawn including a retroflexed examination of the proximal stomach; Findings and interventions are described below. Findings: Larynx: Scarring with thickening of vocal cords with healed ulcer seen on past EGD Esophagus:? Focal ulceration at 34 to 36 cms with luminal narrowing - biopsies obtained.? Hiatal hernia 36 to 40 cms.? Balloon dilation was performed with 13.5 and 15 mm CRE balloon for 60 sec at each level. Triamcinolone 40 mg was injected into the stricture - 10 mg in each quadrant Stomach: Not examined Duodenum:? Not examined Intervention: Esophageal balloon dilation and Kenalog injection as noted above Impression and Post Procedure Diagnosis: Endoscopy Findings: LARYNX: Scarring with thickening of vocal cords with healed ulcer seen on past EGD ESOPHAGUS: Focal ulceration at 34 to 36 cms with luminal narrowing - biopsies obtained.? Hiatal hernia 36 to 40 cms.? Balloon dilation was performed with 13.5 and 15 mm CRE balloon for 60 sec at each level. Triamcinolone 40 mg was injected into the stricture - 10 ml in each quadrant Plan: Await pathology results. Repeat EGD with esophageal balloon dilation in 6 to 8 weeks Patient has an appointment on 12/15/22 in the GI Clinic with Melissa Handy M.D.. Above findings were reviewed with the patient.
[2022-11-11] MEDS: Albuterol Sulfate (0.083%) 2.5 MG/3 ML VIAL.NEB INHALE (12:33)
[2022-11-11 12:38] VITALS: PULSE 78; RESP 16; O2SAT 94
[2022-11-11] MEDS: Triamcinolone Acetonide 40 MG/ML VIAL IM (13:25)
[2022-11-11 13:34] VITALS: BP 101/64; PULSE 80; RESP 16; TEMP 36.4; O2SAT 99
[2022-11-11 13:49] VITALS: BP 121/74; PULSE 86; RESP 16; O2SAT 97
[2022-11-11 14:04] VITALS: BP 114/57; PULSE 75; RESP 18; TEMP 36.2; O2SAT 97
== END 2022-11-11 14:48 | disposition home or self-care (01) ==
PROVIDERS: PCP Registered Nurse; Visit Provider Internal Medicine Gastroenterology
PROC: 0DJ08ZZ Inspection of Upper Intestinal Tract, Via Natural or Artificial Opening Endoscopic (ICD-10-PCS; CPT 43235; principal; 2022-11-11 12:00)
DX: K22.2 Esophageal obstruction (principal); R13.10 Dysphagia, unspecified; K22.10 Ulcer of esophagus without bleeding; K44.9 Diaphragmatic hernia without obstruction or gangrene; J38.3 Other diseases of vocal cords; Z87.891 Personal history of nicotine dependence
CPT/HCPCS: 43249; 43239; 43236; 88305; 94640; C1726; J3301

== ENCOUNTER 2022-12-07 15:42 | Inpatient (IN) | payer MEDICAID, SELFPAY ==
[2022-12-07] VITALS (16 sets, daily range): BP systolic 99–128; BP diastolic 72–80; PULSE 94–138; RESP 14–43; TEMP 36.4–37.6; O2SAT 87–96; BMI 27.0
--- NOTE | ~2022-12-07 | CT_ITS ---
EXAMINATION: CT CHEST WITHOUT CONTRAST CLINICAL INFORMATION: Dyspnea. Follow-up nodules and infiltrates on chest x-ray COMPARISON: Previous chest x-ray most recent 12/07/[address] October 2021 TECHNIQUE: Multidetector volumetric CT imaging of the chest was done. Axial MIP volume rendering provided. Sagittal and coronal reformatted images were obtained. This CT examination was performed using dose optimization techniques as appropriate, variously including the following: *Automated exposure control *Adjustment of mA and/or kV according to patient size (this includes techniques or standardized protocols for targeted exams where dose is matched to indication/reason for exam; i.e. extremities or head) *Use of iterative reconstruction technique DLP: 311 mGy-cm FINDINGS: LUNGS: Emphysema. There is biapical pleural and parenchymal scarring. There are bilateral upper lobe focal mild bronchiectasis and there are and adjacent calcified and noncalcified nodules that is stable. This is probably related to old infection. There are increased attenuation seen in the right lower lobe. New clustered nodules and nodular opacities right lower lobe and peripheral or subpleural right middle lobe adjacent to the major fissure. Largest right middle lobe nodule measures 1 cm axial image 36 series 2. Largest right lower lobe nodule measures 1 cm axial image 45 series 2. MEDIASTINUM: The thoracic esophagus appears slightly dilated and fluid-filled. There may be a small esophageal hernia. The heart size is normal. There is a small pericardial effusion. There is shotty mediastinal and lateral hilar lymphadenopathy. Some lymph nodes are partially calcified. There is moderate to severe coronary artery calcification. Thyroid gland is normal. CORONARY ARTERY CALCIFICATION: Moderate to severe PLEURA: Small bilateral pleural effusions. AXILLA: No lymphadenopathy. UPPER ABDOMEN: Unremarkable. OSSEOUS STRUCTURES: Degenerative changes of the spine. CT/CT chest wo IV con IMPRESSION: New increased attenuation and clustered nodules in the right lower lobe and right middle lobe. This may represent an infectious or inflammatory process. Short-term chest CT follow-up in several months recommended. Emphysema. Stable biapical pleural and parenchymal scarring, bilateral upper lobe bronchiectasis, scarring and adjacent calcified and noncalcified nodules. This is probably related to old infection/granulomatous disease. Severe coronary artery calcification. Esophageal hernia. Fluid-filled slightly dilated esophagus. Fleischner guidelines were followed.
--- NOTE | ~2022-12-07 | CT_ITS ---
EXAMINATION: CT HEAD WITHOUT CONTRAST CLINICAL INFORMATION: Fall, positive loss of consciousness, forehead or contusion. COMPARISON: No similar priors. TECHNIQUE: Contiguous axial imaging was performed from the skull base to vertex without intravenous administration of contrast. This CT examination was performed using dose optimization techniques as appropriate, variously including the following: *Automated exposure control *Adjustment of mA and/or kV according to patient size (this includes techniques or standardized protocols for targeted exams where dose is matched to indication/reason for exam; i.e. extremities or head) *Use of iterative reconstruction technique DLP: 610 mGy-cm FINDINGS: There is no evidence of acute intracranial hemorrhage or edematous territorial infarction. A few foci of hypoattenuation in the periventricular and deep white matter are consistent with mild microangiopathy. Riddle-white matter differentiation is preserved. Proportional prominence of the ventricles and sulcal spaces. No evidence for obstructive hydrocephalus. No abnormal mass effect or midline shift. No extra-axial fluid collections. No acute soft tissue or osseous abnormalities. The mastoid air cells and paranasal sinuses are clear. CT/CT head/brain wo IV con IMPRESSION: No evidence of acute intracranial hemorrhage or edematous territorial infarction.
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
--- NOTE | 2022-12-07 15:43 | ECG_ITS ---
Test Reason : FALL Blood Pressure : / mmHG Vent. Rate : 119 BPM Atrial Rate : 119 BPM P-R Int : 164 ms QRS Dur : 088 ms QT Int : 314 ms P-R-T Axes : 068 -29 044 degrees QTc Int : 441 ms Sinus tachycardia Otherwise normal ECG When compared with ECG of 23-DEC-2021 18:26, No significant change was found Referred By: Meryl Sun Electronically Signed By:ESTER JJ MD
--- NOTE | 2022-12-07 15:44 | ED_ITS ---
HPI - General Adult General Chief complaint: Dyspnea Stated complaint: Unsteady/Diff breathing/Chest pain/fever Time Seen by Provider: 12/07/22 16:37 Source: patient Mode of arrival: ambulatory Limitations: no limitations History of Present Illness HPI narrative: 62-year-old male who presents emergency department for evaluation increased shortness of breath, cough, weakness and fall. Patient states that over the past 2 weeks he has had a cough which is productive of heavy, thick phlegm with no blood in the sputum. He states that over the past 3 days he has had episodes of uncontrolled shaking chills. He states he has also felt more short of breath. The patient does have COPD unusually uses 3 L of oxygen via nasal cannula and his O2 saturation is usually between 93 and 94%. He states he has had oxygen via nasal cannula 4% in order to feel better. He states that at 08:00 hours he walked into his kitchen, got lightheaded, dizzy and fell forward landing on his forearms, knees and striking his head on the floor. He states he had a brief loss of consciousness. He also struck his right ribs on the floor and now is having moderate to severe right rib pain with breathing, movement and pressure on the right side of his chest. Patient states he has had a good appetite he has been eating and drinking well. He has been taking Tylenol for his chills. He denied nausea, vomiting, diarrhea, frequency, urgency or dysuria. He has not had any dark tarry stools or bloody stools. Patient has a right upper lobe mass/nodule that he states is being followed by CT scans and he is due for his yearly CT scan next week. Related Data Home Medications Medication Instructions Recorded Confirmed albuterol sulfate 90 mcg/actuation 2 puff inhalation Q6H PRN Wheezing 03/23/20 12/07/22 aerosol inhaler (ProAir HFA) clonazepam 1 mg tablet 2 mg PO BEDTIME 03/23/20 12/07/22 ipratropium 0.5 mg-albuterol 3 mg 3 ml inhalation Q6-8H PRN Wheezing 03/23/20 12/07/22 (2.5 mg base)/3 mL nebulization soln naloxone 4 mg/actuation nasal 4 mg intranasal Q2M PRN Opioid 03/23/20 12/07/22 spray (Narcan) Overdose atorvastatin 20 mg tablet 20 mg PO BEDTIME 01/27/22 12/07/22 gabapentin 600 mg tablet 600 mg PO QD-BID 01/27/22 12/07/22 lamotrigine 200 mg tablet 200 mg PO BID 01/27/22 12/07/22 metoprolol tartrate 25 mg tablet 25 mg PO BID 01/27/22 12/07/22 paliperidone 3 mg tablet,extended 3 mg PO DAILY 01/27/22 12/07/22 release 24 hr (Invega) paliperidone 6 mg tablet,extended 6 mg PO QAM 01/27/22 12/07/22 release 24 hr (Invega) sildenafil 100 mg tablet (Viagra) 100 mg PO DAILY PRN Sexual Activity 01/27/22 12/07/22 cyclobenzaprine 10 mg tablet 10 mg PO DAILY PRN Muscle Spasm 06/09/22 12/07/22 gabapentin 600 mg tablet 1,200 mg PO BEDTIME 12/07/22 12/07/22 prednisone 5 mg tablet 5 mg PO DAILY 12/07/22 12/07/22 prednisone 5 mg tablet 5 mg PO DAILY PRN Bronchospasm 12/07/22 12/07/22 Previous Rx's Medication Instructions Recorded fluticasone 500 mcg-salmeterol 50 1 inh inhalation BID #60 ea 06/17/20 mcg/dose blistr powdr for inhalation (Wixela Inhub) omeprazole 40 mg capsule,delayed 40 mg PO TID 30 days #90 caps 12/08/22 release Allergies Allergy/AdvReac Type Severity Reaction Status Date / Time No Known Allergies Allergy Verified 12/07/22 15:43 [No Known Allergies*] Review of Systems Review of Systems: Yes all other systems are reviewed and are negative [facility] Past Medical History [facility] Narrative: Social history: Patient lives with his partner, Irlanda is here in the emergency department with him. The patient stop smoking cigarettes 6 years prior. Patient has smoked for 40 years. He denies alcohol and drug use. Medical History Anxiety Anxiety Ascending aorta dilatation Bipolar disorder COPD (chronic obstructive pulmonary disease) GERD without esophagitis Hiatal hernia without gangrene or obstruction History of drug abuse History of ETOH abuse Hyperlipidemia Hypertension Hypoxemia 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 On beta mariano at home Personal history of nicotine dependence Pulmonary nodules Surgical History History of Achilles tendon repair History of biopsy History of colonoscopy History of endoscopy History of repair of hiatal hernia (~06/01/18) Family History Family History Father History of heart attack Mother History of COPD Sister History of cancer Brother Hx of cancer of lung Social History Social History Household Members: None Alcohol intake: never Patient Tobacco Use Status: Former Tobacco user Quit Date: 6 years ago Tobacco use type: Cigarette Second Hand Smoke Exposure: No Use of substances other than those prescribed or required for medical reasons: No Advance Directives: Yes Advance Directives on File: Yes Advance Directives Date on File: 12/08/22 Physical Exam ED Vital Signs: Vital Signs - 24 hr 12/07/22 15:43 12/07/22 17:03 12/07/22 17:43 Temperature 97.6 F 98.8 F Pulse Rate 138 H 105 H Respiratory Rate 18 27 H 23 H Blood Pressure 128/74 116/80 Pulse Oximetry 87 L 95 Oxygen Delivery Method Nasal Cannula Nasal Cannula Oxygen Flow Rate 3 12/07/22 18:02 12/07/22 18:13 12/07/22 18:54 Temperature 99.6 F 99.1 F 98.4 F Pulse Rate 99 97 96 Respiratory Rate 36 H 14 41 H Blood Pressure 120/79 122/74 117/79 Pulse Oximetry 94 94 94 Oxygen Delivery Method Nasal Cannula Nasal Cannula Room Air Oxygen Flow Rate 3 3 3 12/07/22 19:15 12/07/22 19:28 12/07/22 19:17 Temperature 98.2 F Pulse Rate 99 Respiratory Rate 30 H 28 H Blood Pressure 119/73 119/72 Pulse Oximetry 96 Oxygen Delivery Method Nasal Cannula Oxygen Flow Rate 3 12/07/22 20:00 12/07/22 21:33 12/07/22 21:39 Temperature 98.4 F 98.7 F Pulse Rate 95 113 H Respiratory Rate 43 H 24 H Blood Pressure 122/75 124/80 Pulse Oximetry 96 96 Oxygen Delivery Method Nasal Cannula Room Air Oxygen Flow Rate 3 12/07/22 21:53 12/07/22 21:57 12/07/22 21:59 Temperature 99.4 F Pulse Rate 96 94 Respiratory Rate 22 H 28 H Blood Pressure 125/73 Pulse Oximetry 93 Oxygen Delivery Method Nasal Cannula Oxygen Flow Rate 3 12/07/22 22:00 Temperature 98.2 F Pulse Rate 99 Respiratory Rate 18 Blood Pressure 99/75 Pulse Oximetry 96 Oxygen Delivery Method Nasal Cannula Oxygen Flow Rate 3 BMI result Body Mass Index 27.0 Const General: cooperative and no acute distress Orientation/consciousness: oriented to person and oriented to place Limitations: no limitations HENMT Other: Patient has ecchymosis to his forehead with tenderness palpation of forehead, no obvious hematoma Head: Yes normal to inspection and Yes normocephalic Ears: external ears normal General nose exam: Normal external nose present Face and sinus: Yes normal facial exam Mouth: Normal oral and palatal mucosa present Throat: Yes posterior oropharynx normal Eyes General: appearance normal, both eyes and all related structures Pupils: Equal, round and reactive pupils present Neck Neck: Yes normal visual inspection, Yes no lymphadenopathy, Yes trachea midline and Yes supple Chest Other: Patient has tenderness with palpation of his right lateral lower ribcage, there is no ecchymosis or crepitus Resp Effort & Inspection: normal respiratory effort and able to speak in complete sentences Auscultation: clear to auscultation bilaterally Cardio Rate: regular rate Rhythm: regular rhythm Heart sounds: S1 normal heart sound present, S2 normal heart sound present and no murmurs GI Inspection: Yes normal to inspection Palpation (GI): Soft to palpation, nontender and no guarding Auscultation: normal bowel sounds General: Yes no CVA tenderness Back/Spine/Pelvis Back: no CVA tenderness Skin General skin exam: no rashes or lesions noted Neuro General: oriented to person and oriented to place Cranial nerves: Yes CN's II-XII intact bilaterally and Yes Equal, round and reactive pupils present Cognition (Neuro): normal cognition Motor exam (neuro): 5/5 motor strength present throughout Extrem Other: Patient has ecchymosis to his forearms bilaterally with tenderness with palpation over this area. Psych Appearance: grossly normal Speech and movement: Normal speech and movement present Affect: normal affect Attitude: cooperative Course Course Course Narrative: This is an RME: Additional HPI, ROS, PE not included below will be deferred to primary provider. Patient is a 62-year-old male with history of COPD, anemia, GERD, O2 dependent presenting to the emergency department with complaint of chills, shortness of breath worse than baseline for the past 3-4 days, productive cough. Also had a fall this morning, was bending over and fell and was unable to get up until got home. Was seeing spots prior to fall, now c/o right rib pain. Patient pale, increased work of breathing, tachycardic and hypoxic in triage. Wears 3lpm via NC at baseline, states if he ambulates to kitchen recently without his O2 his sat drops to 83-84%. Plan: EKG, labs including blood cultures and lactic, CXR; patient brought directly inside to room in main ED Medications Administered Generic Name Dose Route Start Last Admin Trade Name Freq PRN Reason Stop Dose Admin Acetaminophen 650 mg 12/07/22 22:16 12/08/22 09:22 Acetaminophen 325 Mg Tablet PO 650 mg Q6H PRN Administration Pain, Mild (Pain Scale 1-3) Albuterol/Ipratropium 3 ml 12/08/22 08:00 12/08/22 07:31 Albuterol/Iprat 2.5/0.5mg 3 Ml Ampul.Neb INHALE 3 ml RQ4H WHILE AWAKE MARTINA Administration Albuterol/Ipratropium 3 ml 12/07/22 22:24 12/08/22 01:53 Albuterol/Iprat 2.5/0.5mg 3 Ml Ampul.Neb INHALE 3 ml Q6H PRN Administration Wheezing Atorvastatin Calcium 20 mg 12/07/22 22:30 12/07/22 23:23 Atorvastatin Calcium 20 Mg Tablet PO 20 mg BEDTIME MARTINA Administration Clonazepam 2 mg 12/07/22 22:30 12/07/22 23:23 Clonazepam 1 Mg Tablet PO 2 mg BEDTIME MARTINA Administration Enoxaparin Sodium 40 mg 12/07/22 22:30 12/07/22 23:24 Enoxaparin Sodium 40 Mg/0.4 Ml Syringe SUBCUT 40 mg Q24H MARTINA Administration Gabapentin 600 mg 12/08/22 08:00 12/08/22 09:22 Gabapentin 600 Mg Tablet PO 600 mg BIDWM MARTINA Administration Gabapentin 1,200 mg 12/07/22 22:30 12/07/22 23:23 Gabapentin 600 Mg Tablet PO 1,200 mg BEDTIME MARTINA Administration Lamotrigine 200 mg 12/07/22 22:30 12/08/22 09:22 Lamotrigine 100 Mg Tablet PO 200 mg BID MARTINA Administration Methylprednisolone Sodium Succinate 40 mg 12/07/22 22:30 12/08/22 09:58 Methylprednisolone Sod Succ 40 Mg/Ml Vial IVPUSH 40 mg Q12H MARTINA Administration Metoprolol Tartrate 25 mg 12/07/22 22:30 12/08/22 09:22 Metoprolol Tartrate 25 Mg Tablet PO 25 mg BID MARTINA Administration Protocol Omeprazole 40 mg 12/07/22 22:30 12/08/22 09:22 Omeprazole 40 Mg Capsule.Dr PO 40 mg TID MARTINA Administration Paliperidone 9 mg 12/08/22 09:00 12/08/22 09:21 Paliperidone Er 3 Mg Tab.Er.24 PO 9 mg DAILY MARTINA Administration Sodium Chloride 3 ml 12/08/22 00:00 12/08/22 09:23 0.9 % Sodium Chloride Flush 3 Ml Syringe IVFLUSH 3 ml QSHIFT MARTINA Administration Discontinued Medications Generic Name Dose Route Start Last Admin Trade Name Freq PRN Reason Stop Dose Admin Albuterol Sulfate 5 mg 12/07/22 21:44 12/07/22 21:52 Albuterol Sulfate (0.083%) 2.5 Mg/3 Ml Vial.Neb INHALE 12/07/22 21:45 5 mg ONCE ONE Administration Sodium Chloride 2,558.25 mls @ 2,558.25 mls/hr 12/07/22 17:01 12/07/22 19:07 Ns 30 ml/kg infuse over 1 hr (2558.25 ml) 12/07/22 18:00 Infused IV Infusion .Q1H STA Ceftriaxone Sodium 1 gm/ 50 mls @ 100 mls/hr 12/07/22 17:01 12/07/22 18:06 Sodium Chloride IV 12/07/22 17:30 Infused ONCE ONE Infusion Azithromycin 500 mg/ Sodium 250 mls @ 125 mls/hr 12/07/22 17:01 12/07/22 20:08 Chloride IV 12/07/22 19:00 Infused ONCE ONE Infusion Morphine Sulfate 4 mg 12/07/22 17:01 12/07/22 17:43 Morphine Sulfate 4 Mg/Ml Cartridge IVPUSH 12/07/22 17:02 4 mg ONCE STA Administration Protocol Morphine Sulfate 4 mg 12/07/22 18:48 12/07/22 19:15 Morphine Sulfate 4 Mg/Ml Cartridge IVPUSH 12/07/22 18:49 4 mg ONCE STA Administration Protocol Morphine Sulfate 4 mg 12/07/22 21:44 12/07/22 22:03 Morphine Sulfate 4 Mg/Ml Cartridge IVPUSH 12/07/22 21:45 4 mg ONCE STA Administration Protocol Medical Decision Making Medical Decision Making [facility] Narrative: 62-year-old male with a history of COPD who presents emergency department for evaluation of 2 weeks of productive cough and 3 days of increased dyspnea, rigors and weakness. Patient fell today at 08:00 hours secondary to his weakness and injured his right chest. Patient also struck his forehead and had a brief loss of consciousness. Patient has ecchymosis to his forehead and forearms bilaterally caused by his fall. He has significant tenderness palpation of his right chest wall. The following tests were ordered on the patient CBC, CMP, lactic acid, COVID 19, influenza, RSV, troponin, blood cultures x2, CT scan of the brain without IV contrast, two view chest x-ray, right-sided rib x-rays, EKG. 1718: Patient's laboratory evaluation did reveal an elevated white blood cell count, elevated lactic acid 3.6 and elevated bilirubin 3.0. Chest x-ray is consistent with right lower lobe pneumonia. Patient was made a sepsis alert. Patient was ordered to get normal saline 30 cc/kilogram IV bolus. I ordered ceftriaxone 1 g IV and azithromycin 500 mg IV. Patient most likely has right-sided rib fracture from his fall, I ordered morphine 4 mg IV 1st pain. 1935: Patient completed her is fluid bolus Blood pressures are normal at 119/72 125/86. Focused exam was completed CT scan the brain revealed no fracture or bleed. I will inform the covering hospitalist about the patient's status and CT scan. Differential Diagnosis 1718: Differential diagnosis includes but is not limited to pneumonia, rib fracture, COPD exacerbation, closed head injury, skull fracture, intracranial bleed, dehydration, volume depletion, anemia, electrolyte abnormalities Admission/Observation Consideration of admission/observation: Escalation of care including admission/observation considered Lab Data [facility] Lab Attestation statement: I reviewed the patient's lab results. 17 18: My interpretation patient's laboratory evaluation is as follows elevated WBC 99562, anemia H&H 10 and 31-this is chronic. Platelet count low 95,000-this is chronic but lower than previous values. Sodium low 132. Bicarb low 19. Glucose elevated 203. AST elevated 81. Bilirubin elevated 3.0. Patient's high sensitive troponin I detectable at 20.8 but not elevated.. was Lactic acid elevated 3.6. 1931: Repeat lactic acid improved to 0.9. 12/07/22 16:10 12/07/22 16:10 Labs: Lab Results 12/07/22 12/07/22 12/07/22 Range/Units 16:10 16:10 16:10 WBC 15.5 H (4.8-10.8) X10*3/uL RBC 3.33 L (4.60-5.80) X10*6/uL Hgb 10.0 L (14.0-18.0) g/dl Hct 31.7 L (42.0-52.0) % MCV 95.2 (80.0-98.0) fL MCH 30.0 (27.0-33.0) pg MCHC 31.5 (31.0-36.0) g/dl RDW 16.9 H (11.0-16.0) % Plt Count 95 L (160-400) X10*3/uL MPV 12.7 H (9.4-12.4) fL Immature Gran % (Auto) 3.9 H (0.0-0.4) % Neut % (Auto) 52.8 (45-73) % Lymph % (Auto) 2.2 L (20-40) % [place] % (Auto) 40.4 H (2-11) % Eos % (Auto) 0.6 (0-4) % Baso % (Auto) 0.1 (0-2) % Lymph # (Auto) 0.3 L (1.2-4.9) X10*3/uL [place] # (Auto) 6.2 H (0.1-1.2) X10*3/uL Eos # (Auto) 0.1 (0.0-0.4) X10*3/uL Baso # (Auto) 0.0 (0.0-0.2) X10*3/uL Abs Immat Gran (auto) 0.60 H (0.00-0.03) X10*3/uL Absolute Neuts (auto) 8.2 (2.0-8.3) x10*3/uL Absolute Nucleated RBC 0.000 (0.0-0.012) X10*3/uL Nucleated RBC % (auto) 0.0 (0.0-0.2) /100WBC Smear Tech's Comments VERIFIED Sodium 132 L (135-145) mmol/L Potassium 3.8 (3.3-5.1) mmol/L Chloride 100 (96-108) mmol/L Carbon Dioxide 19 L (22-29) mmol/L Anion Gap 17 (12-20) BUN 9 (9-16) mg/dL Creatinine 1.04 (0.5-1.4) mg/dL Estim Creat Clear Calc 74.0 Estimated GFR > 60 Random Glucose 203 H (60-115) mg/dL Estimat Average Glucose mg/dL Hemoglobin A1c % % Lactic Acid (0.5-2.0) mmol/L Lactic Acid F/U @ 2Hr (0.5-2.0) mmol/L Calcium 9.1 D (8.4-10.2) mg/dL Total Bilirubin 3.0 H (0.0-1.0) mg/dL AST 81 H (5-37) U/L ALT 15 (0-40) U/L Alkaline Phosphatase 68 (39-117) U/L Total Creatine Kinase 4712 H (38-174) U/L Troponin I High Sens 20.8 (<3.5-35.0) ng/L Total Protein 6.8 (6.5-8.0) g/dL Albumin 3.6 (3.5-5.0) g/dL Urine Color Urine Appearance Urine pH (5.0-9.0) Ur Specific [place] (1.005-1.025) Urine Protein (Neg-Trace) mg/dL Urine Glucose (UA) (Negative) mg/dL Urine Ketones (Negative) mg/dL Urine Blood (Negative) Urine Nitrite (Negative) Ur Leukocyte Esterase (Negative) Urine RBC (0-2) /HPF Urine WBC (0-5) /HPF Ur Squamous Epith Cells (0-2) /HPF Urine Bacteria (None Seen) Hyaline Casts (0-2) /LPF Ethyl Alcohol Cancelled Influenza Type A (PCR) (Negative) Influenza Type B (PCR) (Negative) RSV RNA Qual (PCR) (Negative) SARS-CoV-2 RNA (RT-PCR) (Negative) 12/07/22 12/07/22 12/07/22 Range/Units 16:10 16:10 16:10 WBC (4.8-10.8) X10*3/uL RBC (4.60-5.80) X10*6/uL Hgb (14.0-18.0) g/dl Hct (42.0-52.0) % MCV (80.0-98.0) fL MCH (27.0-33.0) pg MCHC (31.0-36.0) g/dl RDW (11.0-16.0) % Plt Count (160-400) X10*3/uL MPV (9.4-12.4) fL Immature Gran % (Auto) (0.0-0.4) % Neut % (Auto) (45-73) % Lymph % (Auto) (20-40) % [place] % (Auto) (2-11) % Eos % (Auto) (0-4) % Baso % (Auto) (0-2) % Lymph # (Auto) (1.2-4.9) X10*3/uL [place] # (Auto) (0.1-1.2) X10*3/uL Eos # (Auto) (0.0-0.4) X10*3/uL Baso # (Auto) (0.0-0.2) X10*3/uL Abs Immat Gran (auto) (0.00-0.03) X10*3/uL Absolute Neuts (auto) (2.0-8.3) x10*3/uL Absolute Nucleated RBC (0.0-0.012) X10*3/uL Nucleated RBC % (auto) (0.0-0.2) /100WBC Smear Tech's Comments Sodium (135-145) mmol/L Potassium (3.3-5.1) mmol/L Chloride (96-108) mmol/L Carbon Dioxide (22-29) mmol/L Anion Gap (12-20) BUN (9-16) mg/dL Creatinine (0.5-1.4) mg/dL Estim Creat Clear Calc Estimated GFR Random Glucose (60-115) mg/dL Estimat Average Glucose 97 mg/dL Hemoglobin A1c % 5.0 % Lactic Acid 3.6 H* (0.5-2.0) mmol/L Lactic Acid F/U @ 2Hr (0.5-2.0) mmol/L Calcium (8.4-10.2) mg/dL Total Bilirubin (0.0-1.0) mg/dL AST (5-37) U/L ALT (0-40) U/L Alkaline Phosphatase (39-117) U/L Total Creatine Kinase (38-174) U/L Troponin I High Sens (<3.5-35.0) ng/L Total Protein (6.5-8.0) g/dL Albumin (3.5-5.0) g/dL Urine Color Urine Appearance Urine pH (5.0-9.0) Ur Specific [place] (1.005-1.025) Urine Protein (Neg-Trace) mg/dL Urine Glucose (UA) (Negative) mg/dL Urine Ketones (Negative) mg/dL Urine Blood (Negative) Urine Nitrite (Negative) Ur Leukocyte Esterase (Negative) Urine RBC (0-2) /HPF Urine WBC (0-5) /HPF Ur Squamous Epith Cells (0-2) /HPF Urine Bacteria (None Seen) Hyaline Casts (0-2) /LPF Ethyl Alcohol Influenza Type A (PCR) NEGATIVE (Negative) Influenza Type B (PCR) NEGATIVE (Negative) RSV RNA Qual (PCR) NEGATIVE (Negative) SARS-CoV-2 RNA (RT-PCR) NEGATIVE (Negative) 12/07/22 12/07/22 Range/Units 18:04 18:57 WBC (4.8-10.8) X10*3/uL RBC (4.60-5.80) X10*6/uL Hgb (14.0-18.0) g/dl Hct (42.0-52.0) % MCV (80.0-98.0) fL MCH (27.0-33.0) pg MCHC (31.0-36.0) g/dl RDW (11.0-16.0) % Plt Count (160-400) X10*3/uL MPV (9.4-12.4) fL Immature Gran % (Auto) (0.0-0.4) % Neut % (Auto) (45-73) % Lymph % (Auto) (20-40) % [place] % (Auto) (2-11) % Eos % (Auto) (0-4) % Baso % (Auto) (0-2) % Lymph # (Auto) (1.2-4.9) X10*3/uL [place] # (Auto) (0.1-1.2) X10*3/uL Eos # (Auto) (0.0-0.4) X10*3/uL Baso # (Auto) (0.0-0.2) X10*3/uL Abs Immat Gran (auto) (0.00-0.03) X10*3/uL Absolute Neuts (auto) (2.0-8.3) x10*3/uL Absolute Nucleated RBC (0.0-0.012) X10*3/uL Nucleated RBC % (auto) (0.0-0.2) /100WBC Smear Tech's Comments Sodium (135-145) mmol/L Potassium (3.3-5.1) mmol/L Chloride (96-108) mmol/L Carbon Dioxide (22-29) mmol/L Anion Gap (12-20) BUN (9-16) mg/dL Creatinine (0.5-1.4) mg/dL Estim Creat Clear Calc Estimated GFR Random Glucose (60-115) mg/dL Estimat Average Glucose mg/dL Hemoglobin A1c % % Lactic Acid (0.5-2.0) mmol/L Lactic Acid F/U @ 2Hr 0.9 (0.5-2.0) mmol/L Calcium (8.4-10.2) mg/dL Total Bilirubin (0.0-1.0) mg/dL AST (5-37) U/L ALT (0-40) U/L Alkaline Phosphatase (39-117) U/L Total Creatine Kinase (38-174) U/L Troponin I High Sens (<3.5-35.0) ng/L Total Protein (6.5-8.0) g/dL Albumin (3.5-5.0) g/dL Urine Color Dark Yellow Urine Appearance Clear Urine pH 6.5 (5.0-9.0) Ur Specific [place] 1.015 (1.005-1.025) Urine Protein 100 (2+) H (Neg-Trace) mg/dL Urine Glucose (UA) Negative (Negative) mg/dL Urine Ketones Negative (Negative) mg/dL Urine Blood Large (3+) H (Negative) Urine Nitrite Negative (Negative) Ur Leukocyte Esterase Negative (Negative) Urine RBC 6-10 H (0-2) /HPF Urine WBC 0-5 (0-5) /HPF Ur Squamous Epith Cells 0-2 (0-2) /HPF Urine Bacteria None Seen (None Seen) Hyaline Casts 0-2 (0-2) /LPF Ethyl Alcohol Influenza Type A (PCR) (Negative) Influenza Type B (PCR) (Negative) RSV RNA Qual (PCR) (Negative) SARS-CoV-2 RNA (RT-PCR) (Negative) Independent Interpretation I performed an independent interpretation of an: EKG and Plain X-Ray Interpretation: My independent interpretation of the patient's chest x-ray is as follows: Right upper lobe mass/nodule, unchanged from previous x-ray 12/23/2021. Patient has a new right lower lobe infiltrate compared to previous x-ray. My interpretation of patient's rib fractures as follows: Question right 5th and 6th rib fractures. Radiology reading is no displaced rib fractures My independent interpretation patient's 12 EKG done at 15:52 hours is as follows: Sinus tachycardia with a rate of 119, normal CT interval, QRS duration QTC interval, no ST segment elevation, no ST segment depression, no significant T-wave abnormalities no PACs, no PVCs compared to EKG dated 12/23/2021 there are no significant changes. Radiology Impression Discussion of test interpretation with radiology: I have reviewed the radiologist's reading. Radiologist Impression: XR ribs RT 2V IMPRESSION: 1. Marked emphysematous change of lungs. Chronic scarring and multifocal opacities in the upper lobes. Increasing hazy airspace opacities in the right mid and lower lung may be developing acute airspace disease. 2. Right ribs. No displaced rib fracture. Dictated By:Dave Dickens MD CT head/brain wo IV con IMPRESSION: No evidence of acute intracranial hemorrhage or edematous territorial infarction. Dictated By:Chana Schmid Independent Historian Clinical information obtained from an independent historian. History obtained from or confirmed by: Spouse External Record Review External record reviewed: Office record (Pulmonology no) Prescription Management I considered prescription management with: Pain Medication Chronic Conditions Patient?s care impacted by: Other (COPD) Critical Care Time Critical Care Time Critical Care Time: Yes Total Critical Care Time: 45 Attestation: Critical Care: The patient was critically ill with a high probability of imminent or life threatening deterioration. I spent greater than 30 minutes of discontinuous time evaluating the patient,delivering critical care at the bedside, discussing and evaluating pertinent data with consultants. Critical care time does not include time spent performing separately billable procedures or teaching. Total time spent performing critical care was 45 minutes. Discharge Plan Discharge Clinical Impression: Hypoxia, Soft tissue injury of right chest wall Pneumonia Qualifiers: Pneumonia type: due to unspecified organism Laterality: right Lung location: lower lobe of lung Qualified Code(s): J18.9 - Pneumonia, unspecified organism Closed head injury Qualifiers: Encounter type: initial encounter Qualified Code(s): S09.90XA - Unspecified injury of head, initial encounter Fall Qualifiers: Encounter type: initial encounter Qualified Code(s): W19.XXXA - Unspecified fall, initial encounter Patient Disposition: Admitted As Inpatient
[2022-12-07 16:16] LABS: Basophils Percent Auto 0.1 % (0-2); Eosinophils Absolute Auto 0.1 X10*3/uL (0.0-0.4); Eosinophils Percent Auto 0.6 % (0-4); Hematocrit 31.7 % (42.0-52.0); Imm Gran Pct Auto 3.9 % (0.0-0.4); Lymphocytes Absolute Auto 0.3 X10*3/uL (1.2-4.9); Lymphocytes Percent Auto 2.2 % (20-40); MANUAL DIFF FLAG SCAN; Mean Corpuscular HGB Conc 31.5 g/dl (31.0-36.0); Mean Corpuscular Volume 95.2 fL (80.0-98.0); Mean Platelet Volume 12.7 fL (9.4-12.4); Monocytes Absolute Auto 6.2 X10*3/uL (0.1-1.2); Monocytes Percent Auto 40.4 % (2-11); Neutrophils Absolute Auto 8.2 x10*3/uL (2.0-8.3); Neutrophils Percent Auto 52.8 % (45-73); Red Blood Count 3.33 X10*6/uL (4.60-5.80); Red Cell Distribution Width 16.9 % (11.0-16.0); SCAN SMEAR FLAG 1; White Blood Count 15.5 X10*3/uL (4.8-10.8)
[2022-12-07 16:17] LABS: Platelet Count 95 X10*3/uL (160-400)
[2022-12-07 16:33] LABS: SLIDE REVIEW VERIFIED
[2022-12-07 16:37] LABS: Lactic Acid 3.6 mmol/L (0.5-2.0)
[2022-12-07 16:38] LABS: Alanine Aminotransferase 15 U/L (0-40); Albumin Level 3.6 g/dL (3.5-5.0); Alkaline Phosphatase 68 U/L (39-117); Anion Gap 17 (12-20); Aspartate Amino Transferase 81 U/L (5-37); Blood Urea Nitrogen 9 mg/dL (9-16); Calcium 9.1 mg/dL (8.4-10.2); Carbon Dioxide 19 mmol/L (22-29); Chloride 100 mmol/L (96-108); Estimated Glomerular Filt Rate > 60; Glucose Random 203 mg/dL (60-115); Potassium 3.8 mmol/L (3.3-5.1); Sodium 132 mmol/L (135-145); Total Protein 6.8 g/dL (6.5-8.0)
[2022-12-07 16:46] LABS: Troponin-I High Sensitivity 20.8 ng/L (<3.5-35.0)
--- NOTE | 2022-12-07 17:01 | PC.NURSE ---
placed order for iv abx. placing iv. drawing 2nd set bc's prior to admin of iv abx.
[2022-12-07 17:05] LABS: Influenza A PCR NEGATIVE (Negative); Influenza B PCR NEGATIVE (Negative); Resp Syncy Virus RNA Qual PCR NEGATIVE (Negative); SARS COV2 PCR INHOUSE NEGATIVE (Negative)
[2022-12-07] MEDS: cefTRIAXone sodium 1 GM in 0.9 % Sodium Chloride 50 ML IV (17:34)
[2022-12-07] MEDS: Morphine Sulfate 4 MG/ML CARTRIDGE IVPUSH ×3 (17:43→22:03)
--- NOTE | 2022-12-07 17:57 | PC.NURSE ---
at this time pt remains on o2 - baseline 3L at home NC- hr 90s-100. o2 sat upper 90%s. resp 20s-30s. md bustamante aware of vs. afebrile. x2 points of iv access established. handoff report at pt bedside to jazmín SOMMER as rn going off floor. communicated pt sepsis protocol and is receiving iv ceftriaxone and in need of next ABX as finished. also this rn prepared next fluids to hang and notified rn will be due for fluids per [facility] [place] sepsis protocol.
[2022-12-07] MEDS: Azithromycin 500 MG in 0.9 % Sodium Chloride 250 ML 125 MG IV (18:05)
--- NOTE | 2022-12-07 18:12 | MHC.EDTECH ---
patient is being admitted ,belongings list done ,vitals sign taken ,pt at bedside .
[2022-12-07 18:13] LABS: Reflex Lactate? Lactic Acid Added
[2022-12-07 18:23] LABS: Appearance Urine Clear; Color Urine Dark Yellow; Glucose Urine UA Negative (Negative); Leukocyte Esterase Urine Negative (Negative); Nitrite Urine Negative (Negative); PH 6.5 (5.0-9.0); Specific Gravity - Urine 1.015 (1.005-1.025); UMIC TRIGGER UACC YES; Urine Blood Large (3+) (Negative); Urine Ketones Negative (Negative); Urine Protein 100 (2+) mg/dL (Neg-Trace)
[2022-12-07 18:28] LABS: Bacteria Urine None Seen (None Seen); Hyaline Casts Urine 0-2 /LPF (0-2); Squamous Epithelial Cell Urine 0-2 /HPF (0-2); WBC Urine 0-5 /HPF (0-5)
--- NOTE | 2022-12-07 18:35 | PC.NURSE ---
rn return to floor and handoff from angélica noyola who was covering. arrived and azithro hanging, 2nd liter is half done and 500 bolus needs to be completed. at this time this rn finishing iv fluids that were ordered.
--- NOTE | 2022-12-07 18:43 | MHC.EDTECH ---
Addendum entered by Rose Osullivan 12/07/22 19:01: LACTIC ACID DRAWN AND SENT TO LAB ,VITALS SIGN TAKEN . Original Note: REPEATED LACTIC ACID IS NOT DRAWN BECAUSE FLUIDS ARE NOT FINISH ,PROVIDER AND RN AWARE .
--- NOTE | 2022-12-07 19:07 | PC.NURSE ---
fluids complete- jason lindsay pressure bagged fluids. aware. see vs.
[2022-12-07 19:25] LABS: ~Lactic Acid-LAB USE ONLY 0.9 mmol/L (0.5-2.0)
--- NOTE | 2022-12-07 21:14 | P.HPHOSP_ITS ---
patient seen and examined. Agree with the findings of a PP. Patient will be admitted for management of acute hypoxic respiratory failure secondary to multifactorial reasons including pneumonia and COPD exacerbation. For full H&P please see below History of Present Illness Date of Service: 12/07/22 Attending physician on admission: Leo Cervantes Chief Complaint: Productive cough, SOB x1 week Pt is a 62-year-old male with a PMH significant for COPD, GERD, HTN, HLD, anxiety, bipolar disorder, chronic thrombocytopenia, and alcohol use disorder sober for the past 15 years who presents to the ED with?increasing shortness of breath and productive cough for the past week. Patient has a long history of emphysema with chronic SOB and cough. Patient states that SOB began increasing last week, patient developed a constant productive cough of thick yellowish sputum. Patient noted that his O2 stats dropped to 83% on Monday, patient chronically on 3 L O2 at home and normally satting at 94-95%. Had subjective fever and chills for which he took Tylenol. Has been experiencing lightheadedness and dizziness for the past 4 days. This morning patient was leaning over and counting his oxygen tanks in order to report to his medical supplier when patient lost balance and fell, striking his head on the takes and falling over. Patient does not know whether or not he lost consciousness, but was too weak and fatigued to stand up and remained on the floor from around 08:00 to 13:30 until his got home. Patient then presented to the emergency room. Patient complains of headache and right-sided rib pain. Denies nausea, vomiting, abdominal pain. In the ED patient was afebrile but tachycardic up to 138, and tachypneic to 43, satting as low as 87% on 3L NC. Labs were significant for leukocytosis of 15.5, stable H&H of 10.0/31.7, platelets of 95, sodium of 132, lactic acid 3.6, random glucose of 203, total bilirubin 3.0, AST 81. CXR showed marked emphysematous c hanges of the lungs with chronic scarring multifocal opacities in the upper lobes and increasing hazy airspace opacities in the right mid and lower lung that may be developing acute airspace disease. Negative for displaced rib fracture or focal rib lesion. CT?of head showed no evidence for acute in tracranial hemorrhage or edematous territorial infarction. EKG demonstrated sinus tachycardia with rate of 119 and no evidence of ST elevations or depressions. Pt was treated with ceftriaxone, azithromycin, IVF 30 mls/kg bolus, morphine, and albuterol. Pt will be admitted to the hospital for treatment and further evaluation of severe sepsis in the setting of COPD exacerbation likely secondary to community acquired pneumonia. Review of Systems Review of Systems: Increasing shortness of breath Productive cough Fever and chills Lightheadedness and dizziness Hypoxia Recent fall with head strike Headache Right sided rib pain Yes all other systems are reviewed and are negative COUNT INCLUDES THE [facility] Medical History Anxiety Anxiety Ascending aorta dilatation Bipolar disorder COPD (chronic obstructive pulmonary disease) GERD without esophagitis Hiatal hernia without gangrene or obstruction History of drug abuse History of ETOH abuse Hyperlipidemia Hypertension Hypoxemia 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 On beta mariano at home Personal history of nicotine dependence Pulmonary nodules Family History Father History of heart attack Mother History of COPD Sister History of cancer Brother Hx of cancer of lung Surgical History History of Achilles tendon repair History of biopsy History of colonoscopy History of endoscopy History of repair of hiatal hernia (~06/01/18) Social History Household Members: None Alcohol intake: never Patient Tobacco Use Status: Former Tobacco user Quit Date: 6 years ago Tobacco use type: Cigarette Second Hand Smoke Exposure: No Use of substances other than those prescribed or required for medical reasons: No Advance Directives: No Advance Directives Information Provided: Yes Meds Allergies Allergy/AdvReac Type Severity Reaction Status Date / Time No Known Allergies Allergy Verified 12/07/22 15:43 [No Known Allergies*] Active Medications: Current Medications Pharmacy Consult (Consult Rx Perform Med Rec) 1 each MISCELLANE ONCE PRN PRN Reason: Consult order Home Medications Medication Instructions Recorded Confirmed Last Taken Type albuterol sulfate 90 mcg/actuation 2 puff inhalation Q6H PRN Wheezing 03/23/20 12/07/22 Unknown History aerosol inhaler (ProAir HFA) clonazepam 1 mg tablet 2 mg PO BEDTIME 03/23/20 12/07/22 Unknown History ipratropium 0.5 mg-albuterol 3 mg 3 ml inhalation Q6-8H PRN Wheezing 03/23/20 12/07/22 Unknown History (2.5 mg base)/3 mL nebulization soln naloxone 4 mg/actuation nasal 4 mg intranasal Q2M PRN Opioid 03/23/20 12/07/22 Unknown History spray (Narcan) Overdose atorvastatin 20 mg tablet 20 mg PO BEDTIME 01/27/22 12/07/22 Unknown History gabapentin 600 mg tablet 600 mg PO QD-BID 01/27/22 12/07/22 Unknown History lamotrigine 200 mg tablet 200 mg PO BID 01/27/22 12/07/22 Unknown History metoprolol tartrate 25 mg tablet 25 mg PO BID 01/27/22 12/07/22 Unknown History paliperidone 3 mg tablet,extended 3 mg PO DAILY 01/27/22 12/07/22 Unknown History release 24 hr (Invega) paliperidone 6 mg tablet,extended 6 mg PO QAM 01/27/22 12/07/22 Unknown History release 24 hr (Invega) sildenafil 100 mg tablet (Viagra) 100 mg PO DAILY PRN Sexual Activity 01/27/22 12/07/22 Unknown History cyclobenzaprine 10 mg tablet 10 mg PO DAILY PRN Muscle Spasm 06/09/22 12/07/22 Unknown History gabapentin 600 mg tablet 1,200 mg PO BEDTIME 12/07/22 12/07/22 Unknown History prednisone 5 mg tablet 5 mg PO DAILY 12/07/22 12/07/22 Unknown History prednisone 5 mg tablet 5 mg PO DAILY PRN Bronchospasm 12/07/22 12/07/22 Unknown History Physical Exam Vital Signs and Narrative: Vital Signs: Last Vital Signs Temp 98.4 F 12/07/22 20:00 Pulse 95 12/07/22 20:00 Resp 43 H 12/07/22 20:00 BP 122/75 12/07/22 20:00 Pulse Ox 96 12/07/22 20:00 O2 Del Method Nasal Cannula 12/07/22 20:00 O2 Flow Rate 3 12/07/22 20:00 Oxygen Flow Rate 3 12/07/22 15:43 BMI result Body Mass Index 27.0 Constitutional: Alert, in no acute distress. Patient speaking only in whispers Mental Status: Oriented to person, place and time. Eyes: Pupils are equal, round, and reactive to light. Ear, Nose, and Throat: Oropharynx clear, mucous membranes moist. Ears and nose without deformities. Trachea midline. Respiratory: Diffuse wheezing and rhonchi. Cardiovascular: S1, S2 regular. No murmurs, rubs, or gallops. Gastrointestinal: Abdomen soft, non-tender, non-distended. Normal bowel sounds. Neurologic: Cranial nerves II-XII are grossly intact bilaterally. No focal neurological deficits. Moves all extremities spontaneously. Skin: No rashes or lesions noted. Musculoskeletal: Upper-right sided anterior chest wall tenderness. Diffuse right sided tenderness over ribs. Bruising on forearms, superficial abrasions on elbows. Extremities: No edema. Psychiatric: Normal mood and affect. Results Labs 12/07/22 16:10 12/07/22 16:10 Labs: Laboratory Results - last 24 hr 12/07/22 12/07/22 12/07/22 16:10 16:10 16:10 MCV 95.2 MCH 30.0 MCHC 31.5 RDW 16.9 H Plt Count 95 L MPV 12.7 H Immature Gran % (Auto) 3.9 H Neut % (Auto) 52.8 Lymph % (Auto) 2.2 L [place] % (Auto) 40.4 H Eos % (Auto) 0.6 Baso % (Auto) 0.1 Lymph # (Auto) 0.3 L [place] # (Auto) 6.2 H Eos # (Auto) 0.1 Baso # (Auto) 0.0 Abs Immat Gran (auto) 0.60 H Absolute Neuts (auto) 8.2 Absolute Nucleated RBC 0.000 Nucleated RBC % (auto) 0.0 Smear Tech's Comments VERIFIED Anion Gap 17 Estim Creat Clear Calc 74.0 Estimated GFR > 60 Random Glucose 203 H Lactic Acid Lactic Acid F/U @ 2Hr Calcium 9.1 D Total Bilirubin 3.0 H AST 81 H ALT 15 Alkaline Phosphatase 68 Troponin I High Sens 20.8 Total Protein 6.8 Albumin 3.6 Urine Color Urine Appearance Urine pH Ur Specific [place] Urine Protein Urine Glucose (UA) Urine Ketones Urine Blood Urine Nitrite Ur Leukocyte Esterase Urine RBC Urine WBC Ur Squamous Epith Cells Urine Bacteria Hyaline Casts Influenza Type A (PCR) Influenza Type B (PCR) RSV RNA Qual (PCR) SARS-CoV-2 RNA (RT-PCR) 12/07/22 12/07/22 12/07/22 16:10 16:10 18:04 MCV MCH MCHC RDW Plt Count MPV Immature Gran % (Auto) Neut % (Auto) Lymph % (Auto) [place] % (Auto) Eos % (Auto) Baso % (Auto) Lymph # (Auto) [place] # (Auto) Eos # (Auto) Baso # (Auto) Abs Immat Gran (auto) Absolute Neuts (auto) Absolute Nucleated RBC Nucleated RBC % (auto) Smear Tech's Comments Anion Gap Estim Creat Clear Calc Estimated GFR Random Glucose Lactic Acid 3.6 H* Lactic Acid F/U @ 2Hr Calcium Total Bilirubin AST ALT Alkaline Phosphatase Troponin I High Sens Total Protein Albumin Urine Color Dark Yellow Urine Appearance Clear Urine pH 6.5 Ur Specific [place] 1.015 Urine Protein 100 (2+) H Urine Glucose (UA) Negative Urine Ketones Negative Urine Blood Large (3+) H Urine Nitrite Negative Ur Leukocyte Esterase Negative Urine RBC 6-10 H Urine WBC 0-5 Ur Squamous Epith Cells 0-2 Urine Bacteria None Seen Hyaline Casts 0-2 Influenza Type A (PCR) NEGATIVE Influenza Type B (PCR) NEGATIVE RSV RNA Qual (PCR) NEGATIVE SARS-CoV-2 RNA (RT-PCR) NEGATIVE 12/07/22 18:57 MCV MCH MCHC RDW Plt Count MPV Immature Gran % (Auto) Neut % (Auto) Lymph % (Auto) [place] % (Auto) Eos % (Auto) Baso % (Auto) Lymph # (Auto) [place] # (Auto) Eos # (Auto) Baso # (Auto) Abs Immat Gran (auto) Absolute Neuts (auto) Absolute Nucleated RBC Nucleated RBC % (auto) Smear Tech's Comments Anion Gap Estim Creat Clear Calc Estimated GFR Random Glucose Lactic Acid Lactic Acid F/U @ 2Hr 0.9 Calcium Total Bilirubin AST ALT Alkaline Phosphatase Troponin I High Sens Total Protein Albumin Urine Color Urine Appearance Urine pH Ur Specific [place] Urine Protein Urine Glucose (UA) Urine Ketones Urine Blood Urine Nitrite Ur Leukocyte Esterase Urine RBC Urine WBC Ur Squamous Epith Cells Urine Bacteria Hyaline Casts Influenza Type A (PCR) Influenza Type B (PCR) RSV RNA Qual (PCR) SARS-CoV-2 RNA (RT-PCR) Imaging Radiologist's Impressions: Impressions Chest X-Ray 12/07/22 16:32 IMPRESSION: 1. Marked emphysematous change of lungs. Chronic scarring and multifocal opacities in the upper lobes. Increasing hazy airspace opacities in the right mid and lower lung may be developing acute airspace disease. 2. Right ribs. No displaced rib fracture. Ribs X-Ray 12/07/22 16:32 IMPRESSION: 1. Marked emphysematous change of lungs. Chronic scarring and multifocal opacities in the upper lobes. Increasing hazy airspace opacities in the right mid and lower lung may be developing acute airspace disease. 2. Right ribs. No displaced rib fracture. Head CT 12/07/22 18:43 IMPRESSION: No evidence of acute intracranial hemorrhage or edematous territorial infarction. Assessment and Plan (1) Pneumonia: Qualifiers: Laterality: right Lung location: lower lobe of lung Pneumonia type: due to unspecified organism Qualified Code(s): J18.9 - Pneumonia, unspecified organism Status: Acute (2) Hypoxia: Status: Acute (3) COPD (chronic obstructive pulmonary disease): Status: Acute Plan Pt is a 62-year-old male with a PMH significant for COPD, GERD, HTN, HLD, a nxiety, bipolar disorder, chronic thrombocytopenia, and alcohol use disorder sober for the past 15 years who presents to the ED with?increasing shortness of breath and productive cough for the past week. Pt will be admitted to the hospital for treatment and further evaluation of severe sepsis in the setting of COPD exacerbation likely secondary to community acquired pneumonia. Sepsis in the setting of pneumonia Patient with increasing SOB, productive cough x1 week, fatigue, CXR with evidence of developing consolidation, leukocytosis Patient meets severe sepsis criteria: WBC, tachycardia, tachypnea, lactic acid Patient received IVF and antibiotics in the emergency department IV abx: Ceftriaxone, azithromycin, started 12/07/2022 Guaifenesin for cough Follow CBC Acute hypoxic respiratory failure in the setting of COPD exacerbation Patient satting 89% O2 3 L NC at time of presentation Pt with wheezing and rhonchi on auscultation Solu-Medrol 40 mg IV q.12 DuoNebs Titrate supplemental O2>92, wean as tolerated Continue home inhalers Recent fall Imaging negative for acute fractures or dislocations Check creatinine kinase Pain management Lactic acidosis, resolved Initial lactic acid 3.6 with repeat 0.9 after IVF Thrombocytopenia, chronic Patient's platelets 95, seem stable at baseline Follow CBC Hyperglycemia Random glucose 203 Patient not diagnosed with diabetes, not on any diabetic medication Check A1c Mood disorder Continue home meds DNR/DNI Attending:?Dr. Cervantes DVT Prophylaxis: Lovenox Pt will require a hospitalization of at least two nights for treatment with IV antibiotics of?severe sepsis in the setting of COPD exacerbation secondary to co mmunity-acquired pneumonia. Time Spent With Patient Time: Total time managing care of this patient today ____ minutes. Quality Stroke Does the patient have a stroke diagnosis?: No VTE Prior VTE?: No VTE Risk Level:: Medical - moderate - high VTE Device Contraindication: Treatment Not Indicated VTE Drug Contraindication: N/A - Med Ordered
--- NOTE | 2022-12-07 21:23 | PHA.MEDREC ---
Pharmacy Consult ? Medication Reconciliation Pharmacy has completed the medication reconciliation. spoke with patient. Confirmed his medications. Reports that he has not been taking the adderall and combivent recently.
--- NOTE | 2022-12-07 21:36 | PC.NURSE ---
at pt bedside- coughed up phlegm- reporting pain to right rib area upon coughing. pt c/o sob at rest, using abdominal muscles. to notify
[2022-12-07] MEDS: Albuterol Sulfate (0.083%) 2.5 MG/3 ML VIAL.NEB 5 MG INHALE (21:52)
--- NOTE | 2022-12-07 21:56 | PC.NURSE ---
md martinez notified by rn pt sat was low 90%s, pt seems to have a slightly hoarser voice, airway intact, reports increased WOB/SOB. rr 20s-30s. ordered pain med/breathing tx. RT admin'd neb.
--- NOTE | 2022-12-07 22:02 | PC.NURSE ---
boosted in bed. o2 sat 95%. neb tx finishing
[2022-12-07] MEDS: Atorvastatin Calcium 20 MG TABLET PO (23:23)
[2022-12-07] MEDS: lamoTRIgine 100 MG TABLET 200 MG PO (23:23)
[2022-12-07] MEDS: Metoprolol Tartrate 25 MG TABLET PO (23:23)
[2022-12-07] MEDS: Gabapentin 600 MG TABLET 1200 MG PO (23:23)
[2022-12-07] MEDS: clonazePAM 1 MG TABLET 2 MG PO (23:23)
[2022-12-07] MEDS: methylPREDNISolone Sod Succ 40 MG/ML VIAL IVPUSH (23:24)
[2022-12-07] MEDS: Enoxaparin Sodium 40 MG/0.4 ML SYRINGE SUBCUT (23:24)
[2022-12-07] MEDS: Omeprazole 40 MG CAPSULE.DR PO (23:24)
--- NOTE | 2022-12-07 23:30 | PC.NURSE ---
Took over care at 23:00 pt a&o no sign of distress, medicated per Mar. Will continue to monitor.
[2022-12-08] VITALS (14 sets, daily range): BP systolic 96–128; BP diastolic 55–77; PULSE 72–93; RESP 15–20; TEMP 36–37; O2SAT 93–98
--- NOTE | 2022-12-08 01:28 | PC.NURSE ---
pt is sleeping at this time, no sign of distress. Will continue to monitor.
[2022-12-08] MEDS: Albuterol/Iprat 2.5/0.5MG 3 ML AMPUL.NEB INHALE ×4 (01:53→23:10)
--- NOTE | 2022-12-08 01:58 | MHC.EDTECH ---
0200 rounding done ,patient was transfer to a hospital ,patient refused to remove his angélica more aware ,fresh ice water given ,Rt in room giving patient breathing treatment ,300 ml urine empty .
--- NOTE | 2022-12-08 02:13 | PC.NURSE ---
pt changed into hospital bed, respiratory called for breathing treatment, pt tolerated well. no sign of distress.
[2022-12-08] MEDS: 0.9 % Sodium Chloride Flush 3 ML SYRINGE IVFLUSH ×3 (04:47→15:39)
--- NOTE | 2022-12-08 06:46 | PC.NURSE ---
Pt was placed in hospital bed, pt refuse to remove jeans. Pt is in Hospital gown.
[2022-12-08 07:00] LABS: Hematocrit 29.7 % (42.0-52.0); Mean Corpuscular HGB Conc 30.3 g/dl (31.0-36.0); Mean Corpuscular Hemoglobin 29.5 pg (27.0-33.0); Mean Corpuscular Volume 97.4 fL (80.0-98.0); Mean Platelet Volume 12.8 fL (9.4-12.4); Red Blood Count 3.05 X10*6/uL (4.60-5.80); White Blood Count 7.7 X10*3/uL (4.8-10.8)
[2022-12-08 07:24] LABS: Estimated Average Glucose 97 mg/dL
[2022-12-08 07:53] LABS: Platelet Count 81 X10*3/uL (160-400)
[2022-12-08 08:04] LABS: Anion Gap 13 (12-20); Blood Urea Nitrogen 7 mg/dL (9-16); Calcium 8.4 mg/dL (8.4-10.2); Carbon Dioxide 22 mmol/L (22-29); Chloride 109 mmol/L (96-108); Creatinine Clr Calc Pharmacy 98.7; Estimated Glomerular Filt Rate > 60; Glucose Random 135 mg/dL (60-115); Potassium 4.7 mmol/L (3.3-5.1); Sodium 139 mmol/L (135-145)
[2022-12-08] MEDS: Paliperidone ER 3 MG TAB.ER.24 9 MG PO (09:21)
[2022-12-08] MEDS: lamoTRIgine 100 MG TABLET 200 MG PO ×2 (09:22→20:34)
[2022-12-08] MEDS: Metoprolol Tartrate 25 MG TABLET PO ×2 (09:22→20:33)
[2022-12-08] MEDS: Gabapentin 600 MG TABLET PO ×2 (09:22→15:39)
[2022-12-08] MEDS: Omeprazole 40 MG CAPSULE.DR PO ×3 (09:22→20:34)
[2022-12-08] MEDS: Acetaminophen 325 MG TABLET 650 MG PO ×2 (09:22→20:33)
[2022-12-08] MEDS: methylPREDNISolone Sod Succ 40 MG/ML VIAL IVPUSH ×2 (09:58→22:13)
--- NOTE | 2022-12-08 10:01 | PC.NURSE ---
medication administered per provider order, pt stating that he has pain in his right ribcage at a level of 4/10. pt asking when he will be sent upstairs to a bed - pt notified that as soon as we hear something we will let him. pt resting comfortably with the lights dimmed.
--- NOTE | 2022-12-08 10:49 | MHC.CM.PN ---
Attempted to meet with patient in regards to discharge planning. Patient currently sleeping. No family present. Will attempt to meet again. Continue to monitor for d/c needs.
--- NOTE | 2022-12-08 11:44 | PC.NURSE ---
pt's pain reassessed stating pain level decreased to a 3/10 post tylenol administration, waiting for respiratory therapy for inhaler administration, pt resting comfortably with the lights dimmed, will continue to monitor.
--- NOTE | 2022-12-08 15:09 | PC.NURSE ---
report given to rn on medsurg unit - being admitted upstairs after breathing treatment with respiratory is finished.
--- NOTE | 2022-12-08 15:41 | P.PNIM_ITS ---
Subjective Subjective Date of Service: 12/08/22 Interval History: Seen and evaluated this afternoon Feels better but still SOB denies any fever or chills no other overnight events Review of Systems Review of Systems: Yes all other systems are reviewed and are negative Physical Exam Vital Signs: Vital Signs: Last Vital Signs Temp 97.5 F 12/08/22 15:26 Pulse 87 12/08/22 15:26 Resp 20 12/08/22 15:26 BP 113/66 12/08/22 15:26 Pulse Ox 93 12/08/22 15:26 O2 Del Method Nasal Cannula 12/08/22 15:26 O2 Flow Rate 3.0 12/08/22 15:26 Oxygen Flow Rate 3 12/07/22 15:43 BMI result Body Mass Index 27.0 Const: Other: Constitutional : Awake, interactive, not in distress Neck : Normal inspection, Supple Cardiovascular : RRR, no JVP, no lower extremity edema Respiratory : decreased bilateral air entry, no crackles, expiratory wheezes Gastrointestinal: soft, lax, Normal bowel sounds, Non tender Skin : Warm, Dry Neurological : Alert & oriented x3, No focal deficit Objective Data Active Medications Acetaminophen (Acetaminophen 325 Mg Tablet) 650 mg PO Q6H PRN PRN Reason: Pain, Mild (Pain Scale 1-3) Last Admin: 12/08/22 09:22 Dose: 650 mg Documented By: LUZ Albuterol Sulfate (Albuterol Sulfate 90 Mcg 8 Gm Inhaler) 2 puff INHALE Q6H PRN PRN Reason: Wheezing Albuterol/Ipratropium (Albuterol/Iprat 2.5/0.5mg 3 Ml Ampul.Neb) 3 ml INHALE RQ4H WHILE AWAKE [facility] Last Admin: 12/08/22 15:06 Dose: 3 ml Documented By: TAM Albuterol/Ipratropium (Albuterol/Iprat 2.5/0.5mg 3 Ml Ampul.Neb) 3 ml INHALE Q6H PRN PRN Reason: Wheezing Last Admin: 12/08/22 01:53 Dose: 3 ml Documented By: DUSTIN Atorvastatin Calcium (Atorvastatin Calcium 20 Mg Tablet) 20 mg PO BEDTIME [facility] Last Admin: 12/07/22 23:23 Dose: 20 mg Documented By: MATI Clonazepam (Clonazepam 1 Mg Tablet) 2 mg PO BEDTIME [facility] Last Admin: 12/07/22 23:23 Dose: 2 mg Documented By: MATI Cyclobenzaprine HCl (Cyclobenzaprine Hcl 10 Mg Tablet) 10 mg PO DAILY PRN PRN Reason: Muscle Spasm Enoxaparin Sodium (Enoxaparin Sodium 40 Mg/0.4 Ml Syringe) 40 mg SUBCUT Q24H [facility] Last Admin: 12/07/22 23:24 Dose: 40 mg Documented By: MATI Fluticasone/Vilanterol (Fluticasone/Vilanterol 200/25 Blst.W.Dev) 1 puff INHALE RDAILY [facility] Last Admin: 12/08/22 13:08 Dose: Not Given Documented By: TAM Non-Admin Reason: Med Not Available Gabapentin (Gabapentin 600 Mg Tablet) 600 mg PO BIDWM [facility] Last Admin: 12/08/22 15:39 Dose: 600 mg Documented By: SHANTAL Gabapentin (Gabapentin 600 Mg Tablet) 1,200 mg PO BEDTIME [facility] Last Admin: 12/07/22 23:23 Dose: 1,200 mg Documented By: MATI Guaifenesin/Dextromethorphan (Guaifenesin Dm 200/20/10 Ml 10 Ml Syrup) 10 ml PO Q6H PRN PRN Reason: Cough Ceftriaxone Sodium 1 gm/ (Sodium Chloride) 50 mls @ 100 mls/hr IV Q24H MARTINA Azithromycin 500 mg/ Sodium (Chloride) 250 mls @ 125 mls/hr IV Q24H [facility] Lamotrigine (Lamotrigine 100 Mg Tablet) 200 mg PO BID [facility] Last Admin: 12/08/22 09:22 Dose: 200 mg Documented By: LUZ Methylprednisolone Sodium Succinate (Methylprednisolone Sod Succ 40 Mg/Ml Vial) 40 mg IVPUSH Q12H [facility] Last Admin: 12/08/22 09:58 Dose: 40 mg Documented By: LUZ Metoprolol Tartrate (Metoprolol Tartrate 25 Mg Tablet) 25 mg PO BID [facility]; Protocol Last Admin: 12/08/22 09:22 Dose: 25 mg Documented By: LUZ Morphine Sulfate (Morphine Sulfate 4 Mg/Ml Cartridge) 4 mg IVPUSH Q4H PRN; Protocol PRN Reason: Pain, Severe (Pain Scale 7-10) Omeprazole (Omeprazole 40 Mg Capsule.Dr) 40 mg PO TID [facility] Last Admin: 12/08/22 15:39 Dose: 40 mg Documented By: SHANTAL Ondansetron HCl (Ondansetron Hcl 4 Mg/2 Ml Vial) 4 mg IVPUSH Q8H PRN PRN Reason: Nausea and Vomiting Paliperidone (Paliperidone Er 3 Mg Tab.Er.24) 9 mg PO DAILY [facility] Last Admin: 12/08/22 09:21 Dose: 9 mg Documented By: LUZ Pharmacy Consult (Consult Rx Perform Med Rec) 1 each MISCELLANE ONCE PRN PRN Reason: Consult order Sodium Chloride (0.9 % Sodium Chloride Flush 3 Ml Syringe) 3 ml IVFLUSH QSHIFT [facility] Last Admin: 12/08/22 15:39 Dose: 3 ml Documented By: SHANTAL Labs 12/08/22 06:25 12/08/22 06:25 Labs: Laboratory Results - last 24 hr 12/07/22 12/07/22 12/07/22 16:10 16:10 16:10 MCV 95.2 MCH 30.0 MCHC 31.5 RDW 16.9 H Plt Count 95 L MPV 12.7 H Immature Gran % (Auto) 3.9 H Neut % (Auto) 52.8 Lymph % (Auto) 2.2 L Person % (Auto) 40.4 H Eos % (Auto) 0.6 Baso % (Auto) 0.1 Lymph # (Auto) 0.3 L Person # (Auto) 6.2 H Eos # (Auto) 0.1 Baso # (Auto) 0.0 Abs Immat Gran (auto) 0.60 H Absolute Neuts (auto) 8.2 Absolute Nucleated RBC 0.000 Nucleated RBC % (auto) 0.0 Smear Tech's Comments VERIFIED Anion Gap 17 Estim Creat Clear Calc 74.0 Estimated GFR > 60 Random Glucose 203 H Estimat Average Glucose Hemoglobin A1c % Lactic Acid Lactic Acid F/U @ 2Hr Calcium 9.1 D Total Bilirubin 3.0 H AST 81 H ALT 15 Alkaline Phosphatase 68 Total Creatine Kinase 4712 H Troponin I High Sens 20.8 Total Protein 6.8 Albumin 3.6 Urine Color Urine Appearance Urine pH Ur Specific [place] Urine Protein Urine Glucose (UA) Urine Ketones Urine Blood Urine Nitrite Ur Leukocyte Esterase Urine RBC Urine WBC Ur Squamous Epith Cells Urine Bacteria Hyaline Casts Ethyl Alcohol Cancelled Influenza Type A (PCR) Influenza Type B (PCR) RSV RNA Qual (PCR) SARS-CoV-2 RNA (RT-PCR) 12/07/22 12/07/22 12/07/22 16:10 16:10 16:10 MCV MCH MCHC RDW Plt Count MPV Immature Gran % (Auto) Neut % (Auto) Lymph % (Auto) Person % (Auto) Eos % (Auto) Baso % (Auto) Lymph # (Auto) Person # (Auto) Eos # (Auto) Baso # (Auto) Abs Immat Gran (auto) Absolute Neuts (auto) Absolute Nucleated RBC Nucleated RBC % (auto) Smear Tech's Comments Anion Gap Estim Creat Clear Calc Estimated GFR Random Glucose Estimat Average Glucose 97 Hemoglobin A1c % 5.0 Lactic Acid 3.6 H* Lactic Acid F/U @ 2Hr Calcium Total Bilirubin AST ALT Alkaline Phosphatase Total Creatine Kinase Troponin I High Sens Total Protein Albumin Urine Color Urine Appearance Urine pH Ur Specific [place] Urine Protein Urine Glucose (UA) Urine Ketones Urine Blood Urine Nitrite Ur Leukocyte Esterase Urine RBC Urine WBC Ur Squamous Epith Cells Urine Bacteria Hyaline Casts Ethyl Alcohol Influenza Type A (PCR) NEGATIVE Influenza Type B (PCR) NEGATIVE RSV RNA Qual (PCR) NEGATIVE SARS-CoV-2 RNA (RT-PCR) NEGATIVE 12/07/22 12/07/22 12/08/22 18:04 18:57 06:25 MCV 97.4 MCH 29.5 MCHC 30.3 L RDW 17.0 H Plt Count 81 L MPV 12.8 H Immature Gran % (Auto) Neut % (Auto) Lymph % (Auto) Person % (Auto) Eos % (Auto) Baso % (Auto) Lymph # (Auto) Person # (Auto) Eos # (Auto) Baso # (Auto) Abs Immat Gran (auto) Absolute Neuts (auto) Absolute Nucleated RBC 0.000 Nucleated RBC % (auto) 0.0 Smear Tech's Comments Anion Gap Estim Creat Clear Calc Estimated GFR Random Glucose Estimat Average Glucose Hemoglobin A1c % Lactic Acid Lactic Acid F/U @ 2Hr 0.9 Calcium Total Bilirubin AST ALT Alkaline Phosphatase Total Creatine Kinase Troponin I High Sens Total Protein Albumin Urine Color Dark Yellow Urine Appearance Clear Urine pH 6.5 Ur Specific Henderson 1.015 Urine Protein 100 (2+) H Urine Glucose (UA) Negative Urine Ketones Negative Urine Blood Large (3+) H Urine Nitrite Negative Ur Leukocyte Esterase Negative Urine RBC 6-10 H Urine WBC 0-5 Ur Squamous Epith Cells 0-2 Urine Bacteria None Seen Hyaline Casts 0-2 Ethyl Alcohol Influenza Type A (PCR) Influenza Type B (PCR) RSV RNA Qual (PCR) SARS-CoV-2 RNA (RT-PCR) 12/08/22 06:25 MCV MCH MCHC RDW Plt Count MPV Immature Gran % (Auto) Neut % (Auto) Lymph % (Auto) Person % (Auto) Eos % (Auto) Baso % (Auto) Lymph # (Auto) Person # (Auto) Eos # (Auto) Baso # (Auto) Abs Immat Gran (auto) Absolute Neuts (auto) Absolute Nucleated RBC Nucleated RBC % (auto) Smear Tech's Comments Anion Gap 13 Estim Creat Clear Calc 98.7 Estimated GFR > 60 Random Glucose 135 H Estimat Average Glucose Hemoglobin A1c % Lactic Acid Lactic Acid F/U @ 2Hr Calcium 8.4 D Total Bilirubin AST ALT Alkaline Phosphatase Total Creatine Kinase Troponin I High Sens Total Protein Albumin Urine Color Urine Appearance Urine pH Ur Specific [place] Urine Protein Urine Glucose (UA) Urine Ketones Urine Blood Urine Nitrite Ur Leukocyte Esterase Urine RBC Urine WBC Ur Squamous Epith Cells Urine Bacteria Hyaline Casts Ethyl Alcohol Influenza Type A (PCR) Influenza Type B (PCR) RSV RNA Qual (PCR) SARS-CoV-2 RNA (RT-PCR) Assessment and Plan (1) Pneumonia: Status: Acute (2) Hypoxia: Status: Acute Plan Pt is a 62-year-old male with a PMH significant for COPD, GERD, HTN, HLD, anx iety, bipolar disorder, chronic thrombocytopenia, and alcohol use disorder sober for the past 15 years who presents to the ED with?increasing shortness of breath and productive cough for the past week. Pt will be admitted to the hospital for treatment and further evaluation of severe sepsis in the setting of COPD exacerbation likely secondary to community acquired pneumonia. Sepsis 2/2 pneumonia Pending cultures Ceftriaxone, azithromycin, started 12/07/2022 Guaifenesin for cough Follow CBC Acute on chronic hypoxic respiratory failure in the setting of COPD exacerbation improving Solu-Medrol 40 mg IV q.12 DuoNebs Titrate supplemental O2>92, wean as tolerated Continue home inhalers Recent fall Imaging negative for acute fractures or dislocations Pain management Pt eval Lactic acidosis, resolved Thrombocytopenia, chronic Patient's platelets 95, seem stable at baseline Follow CBC Hyperglycemia Random glucose 203 Patient not diagnosed with diabetes, not on any diabetic medication Check A1c Mood disorder Continue home meds DNR/DNI DVT Prophylaxis: Lovenox Pt will require a hospitalization overnight for treatment with IV antibiotics of?severe sepsis in the setting of COPD exacerbation secondary to community- acquired pneumonia. Time Spent With Patient Time: Total time managing care of this patient today ____ minutes. Quality Stroke Does the patient have a stroke diagnosis?: No VTE Prior VTE?: No VTE Risk Level:: Medical - moderate - high VTE Device Contraindication: Treatment Not Indicated VTE Drug Contraindication: N/A - Med Ordered
[2022-12-08] MEDS: Morphine Sulfate 4 MG/ML CARTRIDGE IVPUSH ×2 (16:17→22:59)
[2022-12-08] MEDS: cefTRIAXone sodium 1 GM in 0.9 % Sodium Chloride 50 ML IV (16:17)
[2022-12-08] MEDS: Azithromycin 500 MG in 0.9 % Sodium Chloride 250 ML 125 MG IV (17:01)
[2022-12-08] MEDS: guaiFENesin DM 200/20/10 ML 10 ML SYRUP PO (20:32)
[2022-12-08] MEDS: clonazePAM 1 MG TABLET 2 MG PO (20:33)
[2022-12-08] MEDS: Gabapentin 600 MG TABLET 1200 MG PO (20:34)
[2022-12-08] MEDS: Atorvastatin Calcium 20 MG TABLET PO (20:34)
[2022-12-08] MEDS: Enoxaparin Sodium 40 MG/0.4 ML SYRINGE SUBCUT (22:13)
[2022-12-09] VITALS (9 sets, daily range): BP systolic 111–134; BP diastolic 63–77; PULSE 76–98; RESP 18–22; TEMP 36.3–37.1; O2SAT 91–95
[2022-12-09] MEDS: 0.9 % Sodium Chloride Flush 3 ML SYRINGE IVFLUSH ×4 (01:51→23:49)
[2022-12-09] MEDS: guaiFENesin DM 200/20/10 ML 10 ML SYRUP PO ×2 (07:20→21:45)
[2022-12-09] MEDS: Morphine Sulfate 4 MG/ML CARTRIDGE IVPUSH ×3 (07:21→21:43)
[2022-12-09] MEDS: Albuterol/Iprat 2.5/0.5MG 3 ML AMPUL.NEB INHALE ×4 (07:23→19:37)
[2022-12-09] MEDS: Fluticasone/Vilanterol 200/25 BLST.W.DEV 1 PUFF INHALE (07:31)
[2022-12-09] MEDS: methylPREDNISolone Sod Succ 40 MG/ML VIAL IVPUSH ×2 (08:39→21:30)
[2022-12-09] MEDS: Gabapentin 600 MG TABLET PO ×2 (08:39→16:33)
[2022-12-09] MEDS: lamoTRIgine 100 MG TABLET 200 MG PO ×2 (08:40→21:28)
[2022-12-09] MEDS: Paliperidone ER 3 MG TAB.ER.24 9 MG PO (08:40)
[2022-12-09] MEDS: Omeprazole 40 MG CAPSULE.DR PO ×3 (08:40→21:29)
[2022-12-09] MEDS: Metoprolol Tartrate 25 MG TABLET PO ×2 (08:40→21:28)
--- NOTE | 2022-12-09 11:02 | MHC.CM.PN ---
EMR REVIEWED, PT ADMITTED W/PNA AND SEPSIS, CM MET W/PT WHO REPORTS HE LIVES W/S.O., IS INDEP W/CARE, PT DOES USE A CANE AND HAS HOME O2 W/LINCARE AND USES 3LNC AT REST AND 3.5L W/ACTIVITY, PT DECLINES HOME HEALTH SERVICES ON D/C AND REPORTS HIS S/O. WILL TRANSPORT. PT VERIFIES PCP IS [facility], HCP VERIFIED AND ON FILE AND MODERNA X2 & PFIZER X2. DCP: HOME NO SELF CARE W/RESUMP OF HOME O2 AND S.O. FOR TRANSPORT
[2022-12-09] MEDS: guaiFENesin LA 600 MG TAB.ER.12H PO ×2 (11:07→21:28)
--- NOTE | 2022-12-09 13:48 | HO.PM.IMPN ---
Subjective Subjective Date of Service: 12/09/22 Interval History: Seen and evaluated this afternoon Feels dyspneic and still SOB denies any fever or chills no other overnight events Review of Systems Review of Systems: Yes all other systems are reviewed and are negative Physical Exam Vital Signs: Vital Signs: Last Vital Signs Temp 98.6 F 12/09/22 08:00 Pulse 83 12/09/22 11:36 Resp 20 12/09/22 11:36 BP 134/77 12/09/22 08:00 Pulse Ox 92 12/09/22 08:00 O2 Del Method Nasal Cannula 12/09/22 08:00 O2 Flow Rate 3 12/09/22 08:00 Oxygen Flow Rate 3 12/07/22 15:43 BMI result Body Mass Index 27.0 Const: Other: Constitutional : Awake, interactive, not in distress Neck : Normal inspection, Supple Cardiovascular : RRR, no JVP, no lower extremity edema Respiratory : decreased bilateral air entry, no crackles, expiratory wheezes Gastrointestinal: soft, lax, Normal bowel sounds, Non tender Skin : Warm, Dry Neurological : Alert & oriented x3, No focal deficit Objective Data Active Medications Acetaminophen (Acetaminophen 325 Mg Tablet) 650 mg PO Q6H PRN PRN Reason: Pain, Mild (Pain Scale 1-3) Last Admin: 12/08/22 20:33 Dose: 650 mg Documented By: KEVIN Albuterol Sulfate (Albuterol Sulfate 90 Mcg 8 Gm Inhaler) 2 puff INHALE Q6H PRN PRN Reason: Wheezing Albuterol/Ipratropium (Albuterol/Iprat 2.5/0.5mg 3 Ml Ampul.Neb) 3 ml INHALE RQ4H WHILE AWAKE [facility] Last Admin: 12/09/22 11:34 Dose: 3 ml Documented By: SUAD Albuterol/Ipratropium (Albuterol/Iprat 2.5/0.5mg 3 Ml Ampul.Neb) 3 ml INHALE Q6H PRN PRN Reason: Wheezing Last Admin: 12/08/22 23:10 Dose: 3 ml Documented By: ANSHU Atorvastatin Calcium (Atorvastatin Calcium 20 Mg Tablet) 20 mg PO BEDTIME [facility] Last Admin: 12/08/22 20:34 Dose: 20 mg Documented By: KEVIN Clonazepam (Clonazepam 1 Mg Tablet) 2 mg PO BEDTIME [facility] Last Admin: 12/08/22 20:33 Dose: 2 mg Documented By: KEVIN Cyclobenzaprine HCl (Cyclobenzaprine Hcl 10 Mg Tablet) 10 mg PO DAILY PRN PRN Reason: Muscle Spasm Enoxaparin Sodium (Enoxaparin Sodium 40 Mg/0.4 Ml Syringe) 40 mg SUBCUT Q24H [facility] Last Admin: 12/08/22 22:13 Dose: 40 mg Documented By: KEVIN Fluticasone/Vilanterol (Fluticasone/Vilanterol 200/25 Blst.W.Dev) 1 puff INHALE RDAILY [facility] Last Admin: 12/09/22 07:31 Dose: 1 puff Documented By: SUAD Gabapentin (Gabapentin 600 Mg Tablet) 600 mg PO BIDWM [facility] Last Admin: 12/09/22 08:39 Dose: 600 mg Documented By: NOREEN Gabapentin (Gabapentin 600 Mg Tablet) 1,200 mg PO BEDTIME [facility] Last Admin: 12/08/22 20:34 Dose: 1,200 mg Documented By: KEVIN Guaifenesin (Guaifenesin La 600 Mg Tab.Er.12h) 600 mg PO BID [facility] Last Admin: 12/09/22 11:07 Dose: 600 mg Documented By: NOREEN Guaifenesin/Dextromethorphan (Guaifenesin Dm 200/20/10 Ml 10 Ml Syrup) 10 ml PO Q6H PRN PRN Reason: Cough Last Admin: 12/09/22 07:20 Dose: 10 ml Documented By: NOREEN Ceftriaxone Sodium 1 gm/ (Sodium Chloride) 50 mls @ 100 mls/hr IV Q24H [facility] Last Infusion: 12/08/22 17:02 Dose: 0 mls/hr Documented By: RIOSCEL Azithromycin 500 mg/ Sodium (Chloride) 250 mls @ 125 mls/hr IV Q24H [facility] Last Infusion: 12/08/22 19:01 Dose: 0 mls/hr Documented By: KEVIN Lamotrigine (Lamotrigine 100 Mg Tablet) 200 mg PO BID [facility] Last Admin: 12/09/22 08:40 Dose: 200 mg Documented By: NOREEN Methylprednisolone Sodium Succinate (Methylprednisolone Sod Succ 40 Mg/Ml Vial) 40 mg IVPUSH Q12H [facility] Last Admin: 12/09/22 08:39 Dose: 40 mg Documented By: NOREEN Metoprolol Tartrate (Metoprolol Tartrate 25 Mg Tablet) 25 mg PO BID [facility]; Protocol Last Admin: 12/09/22 08:40 Dose: 25 mg Documented By: NOREEN Morphine Sulfate (Morphine Sulfate 4 Mg/Ml Cartridge) 4 mg IVPUSH Q4H PRN; Protocol PRN Reason: Pain, Severe (Pain Scale 7-10) Last Admin: 12/09/22 07:21 Dose: 4 mg Documented By: NOREEN Omeprazole (Omeprazole 40 Mg Capsule.Dr) 40 mg PO TID [facility] Last Admin: 12/09/22 08:40 Dose: 40 mg Documented By: NOREEN Ondansetron HCl (Ondansetron Hcl 4 Mg/2 Ml Vial) 4 mg IVPUSH Q8H PRN PRN Reason: Nausea and Vomiting Paliperidone (Paliperidone Er 3 Mg Tab.Er.24) 9 mg PO DAILY [facility] Last Admin: 12/09/22 08:40 Dose: 9 mg Documented By: NOREEN Pharmacy Consult (Consult Rx Perform Med Rec) 1 each MISCELLANE ONCE PRN PRN Reason: Consult order Sodium Chloride (0.9 % Sodium Chloride Flush 3 Ml Syringe) 3 ml IVFLUSH QSHIFT [facility] Last Admin: 12/09/22 07:23 Dose: 3 ml Documented By: NOREEN Labs 12/08/22 06:25 12/08/22 06:25 Microbiology Microbiology Results: Microbiology 12/07/22 17:25 Blood Culture - Preliminary Blood - Venous No growth after 24 hours. 12/07/22 16:10 Blood Culture - Preliminary Blood - Venous No growth after 24 hours. Assessment and Plan (1) Pneumonia: Status: Acute Plan Pt is a 62-year-old male with a PMH significant for COPD, GERD, HTN, HLD, anxiety, bipolar disorder, chronic thrombocytopenia, and alcohol use disorder sober for the past 15 years who presents to the ED with?increasing shortness of breath and productive cough for the past week. Pt will be admitted to the hospital for treatment and further evaluation of severe sepsis in the setting of COPD exacerbation likely secondary to community acquired pneumonia. Sepsis 2/2 pneumonia Pending cultures Ceftriaxone, azithromycin, started 12/07/2022 Guaifenesin for cough Follow CBC Acute on chronic hypoxic respiratory failure in the setting of COPD exacerbation improving Solu-Medrol 40 mg IV q.12 DuoNebs Titrate supplemental O2>92, wean as tolerated Continue home inhalers Recent fall Imaging negative for acute fractures or dislocations Pain management Pt eval Lactic acidosis, resolved Thrombocytopenia, chronic Patient's platelets 95, seem stable at baseline Follow CBC Hyperglycemia Random glucose 203 not diagnosed with diabetes, not on any diabetic medication normal A1c Mood disorder Continue home meds DNR/DNI DVT Prophylaxis: Lovenox Pt will require a hospitalization overnight for treatment with IV antibiotics of?severe sepsis in the setting of COPD exacerbation secondary to community-acquired pneumonia. Time Spent With Patient Time: Total time managing care of this patient today ____ minutes. Quality Stroke Does the patient have a stroke diagnosis?: No VTE Prior VTE?: No VTE Risk Level:: Medical - moderate - high VTE Device Contraindication: Treatment Not Indicated VTE Drug Contraindication: N/A - Med Ordered
[2022-12-09] MEDS: cefTRIAXone sodium 1 GM in 0.9 % Sodium Chloride 50 ML IV (17:42)
[2022-12-09] MEDS: Azithromycin 500 MG in 0.9 % Sodium Chloride 250 ML 125 MG IV (18:15)
[2022-12-09] MEDS: clonazePAM 1 MG TABLET 2 MG PO (21:28)
[2022-12-09] MEDS: Gabapentin 600 MG TABLET 1200 MG PO (21:29)
[2022-12-09] MEDS: Atorvastatin Calcium 20 MG TABLET PO (21:29)
[2022-12-09] MEDS: Enoxaparin Sodium 40 MG/0.4 ML SYRINGE SUBCUT (21:30)
[2022-12-10] VITALS (12 sets, daily range): BP systolic 117–151; BP diastolic 64–81; PULSE 72–82; RESP 16–26; TEMP 36.1–37.2; O2SAT 92–95
[2022-12-10] MEDS: Morphine Sulfate 4 MG/ML CARTRIDGE IVPUSH ×2 (02:51→09:24)
[2022-12-10 06:06] LABS: Anion Gap 12 (12-20); Blood Urea Nitrogen 11 mg/dL (9-16); Calcium 8.7 mg/dL (8.4-10.2); Carbon Dioxide 24 mmol/L (22-29); Chloride 106 mmol/L (96-108); Creatinine Clr Calc Pharmacy 105.5; Estimated Glomerular Filt Rate > 60; Glucose Random 135 mg/dL (60-115); Potassium 4.6 mmol/L (3.3-5.1); Sodium 137 mmol/L (135-145)
[2022-12-10] MEDS: Fluticasone/Vilanterol 200/25 BLST.W.DEV 1 PUFF INHALE (09:04)
[2022-12-10] MEDS: 0.9 % Sodium Chloride Flush 3 ML SYRINGE IVFLUSH ×4 (09:26→22:50)
[2022-12-10] MEDS: methylPREDNISolone Sod Succ 40 MG/ML VIAL IVPUSH ×2 (09:29→22:37)
[2022-12-10] MEDS: Gabapentin 600 MG TABLET PO ×2 (09:30→16:40)
[2022-12-10] MEDS: Metoprolol Tartrate 25 MG TABLET PO ×2 (09:30→22:36)
[2022-12-10] MEDS: guaiFENesin LA 600 MG TAB.ER.12H PO ×2 (09:30→22:36)
[2022-12-10] MEDS: Paliperidone ER 3 MG TAB.ER.24 9 MG PO (09:31)
[2022-12-10] MEDS: Omeprazole 40 MG CAPSULE.DR PO ×3 (09:33→22:37)
[2022-12-10] MEDS: lamoTRIgine 100 MG TABLET 200 MG PO ×2 (09:33→22:37)
[2022-12-10] MEDS: Albuterol/Iprat 2.5/0.5MG 3 ML AMPUL.NEB INHALE ×3 (11:38→19:30)
[2022-12-10] MEDS: Lactulose 20 GM/30 ML SOLUTION PO ×2 (12:11→22:36)
--- NOTE | 2022-12-10 13:25 | HO.PM.IMPN ---
Subjective Subjective Date of Service: 12/10/22 Interval History: Seen and evaluated this afternoon Feels dyspneic and still SOB O2 sat drops to 80s upon ambulation, reports significant SOB and dyspnea on exertion denies any fever or chills no other overnight events Review of Systems Review of Systems: Yes all other systems are reviewed and are negative Physical Exam Vital Signs: Vital Signs: Last Vital Signs Temp 98.9 F 12/10/22 07:41 Pulse 75 12/10/22 11:38 Resp 20 12/10/22 11:38 BP 129/68 12/10/22 07:41 Pulse Ox 92 12/10/22 07:41 O2 Del Method Nasal Cannula 12/10/22 07:41 O2 Flow Rate 3 12/10/22 07:41 Oxygen Flow Rate 3 12/07/22 15:43 BMI result Body Mass Index 27.0 Const: Other: Constitutional : Awake, interactive Neck : Normal inspection, Supple Cardiovascular : RRR, no JVP, no lower extremity edema Respiratory : decreased bilateral air entry, no crackles, expiratory wheezes, mild respratory distress Gastrointestinal: soft, lax, Normal bowel sounds, Non tender Skin : Warm, Dry Neurological : Alert & oriented x3, No focal deficit Objective Data Active Medications Acetaminophen (Acetaminophen 325 Mg Tablet) 650 mg PO Q6H PRN PRN Reason: Pain, Mild (Pain Scale 1-3) Last Admin: 12/08/22 20:33 Dose: 650 mg Documented By: KEVIN Albuterol Sulfate (Albuterol Sulfate 90 Mcg 8 Gm Inhaler) 2 puff INHALE Q6H PRN PRN Reason: Wheezing Albuterol/Ipratropium (Albuterol/Iprat 2.5/0.5mg 3 Ml Ampul.Neb) 3 ml INHALE RQ4H WHILE AWAKE [facility] Last Admin: 12/10/22 11:38 Dose: 3 ml Documented By: MEGHA Albuterol/Ipratropium (Albuterol/Iprat 2.5/0.5mg 3 Ml Ampul.Neb) 3 ml INHALE Q6H PRN PRN Reason: Wheezing Last Admin: 12/08/22 23:10 Dose: 3 ml Documented By: ANSHU Atorvastatin Calcium (Atorvastatin Calcium 20 Mg Tablet) 20 mg PO BEDTIME [facility] Last Admin: 12/09/22 21:29 Dose: 20 mg Documented By: KEVIN Clonazepam (Clonazepam 1 Mg Tablet) 2 mg PO BEDTIME [facility] Last Admin: 12/09/22 21:28 Dose: 2 mg Documented By: KEVIN Cyclobenzaprine HCl (Cyclobenzaprine Hcl 10 Mg Tablet) 10 mg PO DAILY PRN PRN Reason: Muscle Spasm Enoxaparin Sodium (Enoxaparin Sodium 40 Mg/0.4 Ml Syringe) 40 mg SUBCUT Q24H [facility] Last Admin: 12/09/22 21:30 Dose: 40 mg Documented By: KEVIN Fluticasone/Vilanterol (Fluticasone/Vilanterol 200/25 Blst.W.Dev) 1 puff INHALE RDAILY [facility] Last Admin: 12/10/22 09:04 Dose: 1 puff Documented By: DUSTIN Gabapentin (Gabapentin 600 Mg Tablet) 600 mg PO BIDWM [facility] Last Admin: 12/10/22 09:30 Dose: 600 mg Documented By: SHANTAL Gabapentin (Gabapentin 600 Mg Tablet) 1,200 mg PO BEDTIME [facility] Last Admin: 12/09/22 21:29 Dose: 1,200 mg Documented By: KEVIN Guaifenesin (Guaifenesin La 600 Mg Tab.Er.12h) 600 mg PO BID [facility] Last Admin: 12/10/22 09:30 Dose: 600 mg Documented By: SHANTAL Guaifenesin/Dextromethorphan (Guaifenesin Dm 200/20/10 Ml 10 Ml Syrup) 10 ml PO Q6H PRN PRN Reason: Cough Last Admin: 12/09/22 21:45 Dose: 10 ml Documented By: KEVIN Ceftriaxone Sodium 1 gm/ (Sodium Chloride) 50 mls @ 100 mls/hr IV Q24H [facility] Last Infusion: 12/09/22 18:12 Dose: 0 mls/hr Documented By: GRAZIC Azithromycin 500 mg/ Sodium (Chloride) 250 mls @ 125 mls/hr IV Q24H [facility] Last Infusion: 12/09/22 20:15 Dose: 0 mls/hr Documented By: KEVIN Lactulose (Lactulose 20 Gm/30 Ml Solution) 20 gm PO BID [facility] Last Admin: 12/10/22 12:11 Dose: 20 gm Documented By: SHANTAL Lamotrigine (Lamotrigine 100 Mg Tablet) 200 mg PO BID [facility] Last Admin: 12/10/22 09:33 Dose: 200 mg Documented By: SHANTAL Methylprednisolone Sodium Succinate (Methylprednisolone Sod Succ 40 Mg/Ml Vial) 40 mg IVPUSH Q12H [facility] Last Admin: 12/10/22 09:29 Dose: 40 mg Documented By: SHANTAL Metoprolol Tartrate (Metoprolol Tartrate 25 Mg Tablet) 25 mg PO BID [facility]; Protocol Last Admin: 12/10/22 09:30 Dose: 25 mg Documented By: SHANTAL Omeprazole (Omeprazole 40 Mg Capsule.Dr) 40 mg PO TID [facility] Last Admin: 12/10/22 09:33 Dose: 40 mg Documented By: SHANTAL Ondansetron HCl (Ondansetron Hcl 4 Mg/2 Ml Vial) 4 mg IVPUSH Q8H PRN PRN Reason: Nausea and Vomiting Oxycodone HCl (Oxycodone Hcl Immed Release 5 Mg Tablet) 5 mg PO Q4H PRN PRN Reason: Pain, Severe (Pain Scale 7-10) Paliperidone (Paliperidone Er 3 Mg Tab.Er.24) 9 mg PO DAILY [facility] Last Admin: 12/10/22 09:31 Dose: 6 mg Documented By: SHANTAL Comments: PT REFUSING TO TAKE 9, ONLY TAKES 6MG IN MORNING, WILL GIVE 6MG per pt, Provider aware Pharmacy Consult (Consult Rx Perform Med Rec) 1 each MISCELLANE ONCE PRN PRN Reason: Consult order Sodium Chloride (0.9 % Sodium Chloride Flush 3 Ml Syringe) 3 ml IVFLUSH QSHIFT [facility] Last Admin: 12/10/22 09:26 Dose: 3 ml Documented By: SHANTAL Labs 12/08/22 06:25 12/10/22 05:31 Labs: Laboratory Results - last 24 hr 12/10/22 05:31 Anion Gap 12 Estim Creat Clear Calc 105.5 Estimated GFR > 60 Random Glucose 135 H Calcium 8.7 Microbiology Microbiology Results: Microbiology 12/07/22 17:25 Blood Culture - Preliminary Blood - Venous No growth after 48 hours. 12/07/22 16:10 Blood Culture - Preliminary Blood - Venous No growth after 48 hours. Assessment and Plan (1) Pneumonia: Status: Acute (2) Hypoxia: Status: Acute (3) COPD (chronic obstructive pulmonary disease): Status: Acute Plan Pt is a 62-year-old male with a PMH significant for COPD, GERD, HTN, HLD, anxiety, bipolar disorder, chronic thrombocytopenia, and alcohol use disorder sober for the past 15 years who presents to the ED with?increasing shortness of breath and productive cough for the past week. Pt will be admitted to the hospital for treatment and further evaluation of severe sepsis in the setting of COPD exacerbation likely secondary to community acquired pneumonia. Sepsis 2/2 pneumonia Negative cultures Ceftriaxone, azithromycin, started 12/07/2022 Guaifenesin for cough Follow CBC Acute on chronic hypoxic respiratory failure in the setting of COPD exacerbation improving Solu-Medrol 40 mg IV q.12 DuoNebs Titrate supplemental O2>92, wean as tolerated Continue home inhalers Recent fall Imaging negative for acute fractures or dislocations Pain management Pt eval Lactic acidosis, resolved Thrombocytopenia, chronic Patient's platelets 95, seem stable at baseline Follow CBC Hyperglycemia Random glucose 203 not diagnosed with diabetes, not on any diabetic medication normal A1c Mood disorder Continue home meds DNR/DNI DVT Prophylaxis: Lovenox Pt will require a hospitalization overnight for treatment with IV antibiotics of?severe sepsis in the setting of COPD exacerbation secondary to community-acquired pneumonia. Time Spent With Patient Time: Total time managing care of this patient today ____ minutes. Quality Stroke Does the patient have a stroke diagnosis?: No VTE Prior VTE?: No VTE Risk Level:: Medical - moderate - high VTE Device Contraindication: Treatment Not Indicated VTE Drug Contraindication: N/A - Med Ordered
[2022-12-10] MEDS: oxyCODONE HCl Immed Release 5 MG TABLET PO ×2 (16:39→22:36)
[2022-12-10] MEDS: cefTRIAXone sodium 1 GM in 0.9 % Sodium Chloride 50 ML IV (16:40)
[2022-12-10] MEDS: Azithromycin 500 MG in 0.9 % Sodium Chloride 250 ML 125 MG IV (17:42)
[2022-12-10] MEDS: Acetaminophen 325 MG TABLET 650 MG PO (20:03)
[2022-12-10] MEDS: Enoxaparin Sodium 40 MG/0.4 ML SYRINGE SUBCUT (22:35)
[2022-12-10] MEDS: Gabapentin 600 MG TABLET 1200 MG PO (22:36)
[2022-12-10] MEDS: Atorvastatin Calcium 20 MG TABLET PO (22:37)
[2022-12-10] MEDS: clonazePAM 1 MG TABLET 2 MG PO (22:37)
[2022-12-11] VITALS (7 sets, daily range): BP systolic 110–130; BP diastolic 58–70; PULSE 70–86; RESP 16–24; TEMP 36.2–37.3; O2SAT 93–96
[2022-12-11] MEDS: Albuterol/Iprat 2.5/0.5MG 3 ML AMPUL.NEB INHALE ×3 (03:27→20:53)
[2022-12-11] MEDS: oxyCODONE HCl Immed Release 5 MG TABLET PO ×3 (08:42→20:51)
[2022-12-11] MEDS: Metoprolol Tartrate 25 MG TABLET PO ×2 (08:43→20:40)
[2022-12-11] MEDS: Gabapentin 600 MG TABLET PO ×2 (08:43→16:43)
[2022-12-11] MEDS: Omeprazole 40 MG CAPSULE.DR PO ×3 (08:43→20:39)
[2022-12-11] MEDS: Acetaminophen 325 MG TABLET 650 MG PO (08:43)
[2022-12-11] MEDS: Paliperidone ER 3 MG TAB.ER.24 9 MG PO (08:44)
[2022-12-11] MEDS: lamoTRIgine 100 MG TABLET 200 MG PO ×2 (08:44→20:40)
[2022-12-11] MEDS: guaiFENesin LA 600 MG TAB.ER.12H PO ×2 (08:44→20:39)
[2022-12-11] MEDS: methylPREDNISolone Sod Succ 40 MG/ML VIAL IVPUSH (08:45)
--- NOTE | 2022-12-11 09:33 | P.CDIM_ITS ---
PROVIDER RESPONSE TEXT: To clarify, the appropriate diagnosis supported by the clinical indicators: Acute QUERY TEXT: PHYSICIAN'S DOCUMENTATION REQUEST Date of Query: 12/09/2022 08:22 AM EDT Patient Name: Jony Murillo Admit Date: 12/08/2022 Dear Jorden John, A review of the medical record indicates additional documentation may be needed. Please review below and update the documentation accordingly. Clinical Indicators: PN: 12/08 - Lactic acidosis, resolved. initial lactic acid 3.6, seems stable now Clarify which of the following accurately represents the acuity of the lactic acidosis: Possible options might include: Acute Other Other (explain)Clinically unable to determine (explain)Thank you, Salome Dee, CCS, CDIS Use of terms such as suspected, likely, concern for, or probable (associated with a specific diagnosi s that is being evaluated, monitored, or treated as if it exists) are acceptable and can be coded in the inpatient se tting, when documented at the time of discharge. Please use your independent medical judgment in providing your response. THIS QUERY IS PART OF THE PERMANENT MEDICAL RECORD
--- NOTE | 2022-12-11 11:33 | P.PNIM_ITS ---
Subjective Subjective Date of Service: 12/11/22 Interval History: Seen and evaluated this afternoon Feels dyspneic and still SOB O2 sat drops to 80s upon ambulation, reports significant SOB and dyspnea on exertion denies any fever or chills no other overnight events Review of Systems Review of Systems: Yes all other systems are reviewed and are negative Physical Exam Vital Signs: Vital Signs: Last Vital Signs Temp 98.1 F 12/11/22 07:31 Pulse 71 12/11/22 07:31 Resp 20 12/11/22 07:31 BP 110/58 L 12/11/22 07:31 Pulse Ox 96 12/11/22 07:31 O2 Del Method Nasal Cannula 12/11/22 07:31 O2 Flow Rate 4 12/11/22 07:31 Oxygen Flow Rate 3 12/07/22 15:43 BMI result Body Mass Index 27.0 Const: Other: Constitutional : Awake, interactive Neck : Normal inspection, Supple Cardiovascular : RRR, no JVP, no lower extremity edema Respiratory : decreased bilateral air entry, no crackles, expiratory wheezes, mild respratory distress Gastrointestinal: soft, lax, Normal bowel sounds, Non tender Skin : Warm, Dry Neurological : Alert & oriented x3, No focal deficit Objective Data Active Medications Acetaminophen (Acetaminophen 325 Mg Tablet) 650 mg PO Q6H PRN PRN Reason: Pain, Mild (Pain Scale 1-3) Last Admin: 12/11/22 08:43 Dose: 650 mg Documented By: SHANTAL Albuterol Sulfate (Albuterol Sulfate 90 Mcg 8 Gm Inhaler) 2 puff INHALE Q6H PRN PRN Reason: Wheezing Albuterol/Ipratropium (Albuterol/Iprat 2.5/0.5mg 3 Ml Ampul.Neb) 3 ml INHALE RQ4H WHILE AWAKE [facility] Last Admin: 12/11/22 08:07 Dose: Not Given Documented By: MEGHA Non-Admin Reason: Patient Refused Albuterol/Ipratropium (Albuterol/Iprat 2.5/0.5mg 3 Ml Ampul.Neb) 3 ml INHALE Q6H PRN PRN Reason: Wheezing Last Admin: 12/08/22 23:10 Dose: 3 ml Documented By: ANSHU Atorvastatin Calcium (Atorvastatin Calcium 20 Mg Tablet) 20 mg PO BEDTIME [facility] Last Admin: 12/10/22 22:37 Dose: 20 mg Documented By: YULI Clonazepam (Clonazepam 1 Mg Tablet) 2 mg PO BEDTIME [facility] Last Admin: 12/10/22 22:37 Dose: 2 mg Documented By: YULI Cyclobenzaprine HCl (Cyclobenzaprine Hcl 10 Mg Tablet) 10 mg PO DAILY PRN PRN Reason: Muscle Spasm Enoxaparin Sodium (Enoxaparin Sodium 40 Mg/0.4 Ml Syringe) 40 mg SUBCUT Q24H [facility] Last Admin: 12/10/22 22:35 Dose: 40 mg Documented By: YULI Fluticasone/Vilanterol (Fluticasone/Vilanterol 200/25 Blst.W.Dev) 1 puff INHALE RDAILY [facility] Last Admin: 12/11/22 08:07 Dose: Not Given Documented By: MEGHA Non-Admin Reason: Patient Refused Gabapentin (Gabapentin 600 Mg Tablet) 600 mg PO BIDWM [facility] Last Admin: 12/11/22 08:43 Dose: 600 mg Documented By: SHANTAL Gabapentin (Gabapentin 600 Mg Tablet) 1,200 mg PO BEDTIME [facility] Last Admin: 12/10/22 22:36 Dose: 1,200 mg Documented By: YULI Guaifenesin (Guaifenesin La 600 Mg Tab.Er.12h) 600 mg PO BID [facility] Last Admin: 12/11/22 08:44 Dose: 600 mg Documented By: SHANTAL Guaifenesin/Dextromethorphan (Guaifenesin Dm 200/20/10 Ml 10 Ml Syrup) 10 ml PO Q6H PRN PRN Reason: Cough Last Admin: 12/09/22 21:45 Dose: 10 ml Documented By: KEVIN Ceftriaxone Sodium 1 gm/ (Sodium Chloride) 50 mls @ 100 mls/hr IV Q24H [facility] Last Infusion: 12/10/22 17:17 Dose: 0 mls/hr Documented By: SHANTAL Azithromycin 500 mg/ Sodium (Chloride) 250 mls @ 125 mls/hr IV Q24H [facility] Last Infusion: 12/10/22 20:09 Dose: 0 mls/hr Documented By: YULI Lactulose (Lactulose 20 Gm/30 Ml Solution) 20 gm PO BID [facility] Last Admin: 12/11/22 08:46 Dose: Not Given Documented By: SHANTAL Non-Admin Reason: Patient Refused Lamotrigine (Lamotrigine 100 Mg Tablet) 200 mg PO BID [facility] Last Admin: 12/11/22 08:44 Dose: 200 mg Documented By: SHANTAL Methylprednisolone Sodium Succinate (Methylprednisolone Sod Succ 40 Mg/Ml Vial) 40 mg IVPUSH Q12H [facility] Last Admin: 12/11/22 08:45 Dose: 40 mg Documented By: SHANTAL Metoprolol Tartrate (Metoprolol Tartrate 25 Mg Tablet) 25 mg PO BID [facility]; Protocol Last Admin: 12/11/22 08:43 Dose: 25 mg Documented By: SHANTAL Omeprazole (Omeprazole 40 Mg Capsule.Dr) 40 mg PO TID [facility] Last Admin: 12/11/22 08:43 Dose: 40 mg Documented By: SHANTAL Ondansetron HCl (Ondansetron Hcl 4 Mg/2 Ml Vial) 4 mg IVPUSH Q8H PRN PRN Reason: Nausea and Vomiting Oxycodone HCl (Oxycodone Hcl Immed Release 5 Mg Tablet) 5 mg PO Q4H PRN PRN Reason: Pain, Severe (Pain Scale 7-10) Last Admin: 12/11/22 08:42 Dose: 5 mg Documented By: SHANTAL Paliperidone (Paliperidone Er 3 Mg Tab.Er.24) 9 mg PO DAILY [facility] Last Admin: 12/11/22 08:44 Dose: 6 mg Documented By: SHANTAL Comments: Pt only takes 6 mg in the morning and 3 mg at night. aware; pending changes in JUL. Pharmacy Consult (Consult Rx Perform Med Rec) 1 each MISCELLANE ONCE PRN PRN Reason: Consult order Sodium Chloride (0.9 % Sodium Chloride Flush 3 Ml Syringe) 3 ml IVFLUSH QSHIFT [facility] Last Admin: 12/10/22 22:50 Dose: 3 ml Documented By: YULI Mary 12/08/22 06:25 12/10/22 05:31 Assessment and Plan (1) Pneumonia: Status: Acute (2) Hypoxia: Status: Acute (3) COPD (chronic obstructive pulmonary disease): Status: Acute Plan Pt is a 62-year-old male with a PMH significant for COPD, GERD, HTN, HLD, anxiety, bipolar disorder, chronic thrombocytopenia, and alcohol use disorder sober for the past 15 years who presents to the ED with?increasing shortness of breath and productive cough for the past week. Pt will be admitted to the hospital for treatment and further evaluation of severe sepsis in the setting of COPD exacerbation likely secondary to community acquired pneumonia. Sepsis 2/2 pneumonia Negative cultures Ceftriaxone, azithromycin, started 12/07/2022 Guaifenesin for cough Follow CBC Acute on chronic hypoxic respiratory failure in the setting of COPD exacerbation improving but still dyspneic and drops to 80s with minimal exertion increase Solu-Medrol 60 mg IV q.8 DuoNebs Get Pulm evaluation Titrate supplemental O2>92, wean as tolerated Continue home inhalers Might benefit of pulm rehab. Recent fall Imaging negative for acute fractures or dislocations Pain management Pt eval rec SNF placement for rehab Lactic acidosis, resolved Thrombocytopenia, chronic Patient's platelets 95, seem stable at baseline Follow CBC Hyperglycemia Random glucose 203 not diagnosed with diabetes, not on any diabetic medication normal A1c Mood disorder Continue home meds DNR/DNI DVT Prophylaxis: Lovenox Pt will require a hospitalization overnight for treatment with IV antibiotics of?severe sepsis in the setting of COPD exacerbation secondary to community- acquired pneumonia. Time Spent With Patient Time: Total time managing care of this patient today ____ minutes. Quality Stroke Does the patient have a stroke diagnosis?: No VTE Prior VTE?: No VTE Risk Level:: Medical - moderate - high VTE Device Contraindication: Treatment Not Indicated VTE Drug Contraindication: N/A - Med Ordered
[2022-12-11 12:45] LABS: Magnesium 2.2 mg/dL (1.6-2.6)
[2022-12-11] MEDS: methylPREDNISolone Sod Succ 40 MG/ML VIAL 60 MG IVPUSH ×2 (14:59→22:50)
[2022-12-11] MEDS: 0.9 % Sodium Chloride Flush 3 ML SYRINGE IVFLUSH ×2 (15:00→22:50)
[2022-12-11] MEDS: cefTRIAXone sodium 1 GM in 0.9 % Sodium Chloride 50 ML IV (16:43)
[2022-12-11] MEDS: Azithromycin 500 MG in 0.9 % Sodium Chloride 250 ML 125 MG IV (17:37)
[2022-12-11] MEDS: clonazePAM 1 MG TABLET 2 MG PO (20:39)
[2022-12-11] MEDS: Gabapentin 600 MG TABLET 1200 MG PO (20:40)
[2022-12-11] MEDS: Atorvastatin Calcium 20 MG TABLET PO (20:40)
[2022-12-11] MEDS: Enoxaparin Sodium 40 MG/0.4 ML SYRINGE SUBCUT (22:50)
[2022-12-12 03:30] VITALS: BP 120/63; PULSE 66; RESP 20; TEMP 36.4; O2SAT 95
[2022-12-12] MEDS: methylPREDNISolone Sod Succ 40 MG/ML VIAL 60 MG IVPUSH (06:08)
[2022-12-12 07:48] VITALS: BP 146/74; PULSE 71; RESP 18; TEMP 36.3; O2SAT 94
[2022-12-12] MEDS: Omeprazole 40 MG CAPSULE.DR PO (08:10)
[2022-12-12] MEDS: oxyCODONE HCl Immed Release 5 MG TABLET PO ×2 (08:10→11:55)
[2022-12-12] MEDS: lamoTRIgine 100 MG TABLET 200 MG PO (08:10)
[2022-12-12] MEDS: Paliperidone ER 3 MG TAB.ER.24 9 MG PO (08:10)
[2022-12-12] MEDS: Gabapentin 600 MG TABLET PO (08:11)
[2022-12-12] MEDS: Metoprolol Tartrate 25 MG TABLET PO (08:11)
[2022-12-12] MEDS: guaiFENesin LA 600 MG TAB.ER.12H PO (08:11)
[2022-12-12] MEDS: 0.9 % Sodium Chloride Flush 3 ML SYRINGE IVFLUSH (08:12)
[2022-12-12] MEDS: Albuterol/Iprat 2.5/0.5MG 3 ML AMPUL.NEB INHALE ×2 (09:16→11:54)
[2022-12-12] MEDS: Fluticasone/Vilanterol 200/25 BLST.W.DEV 1 PUFF INHALE (09:16)
[2022-12-12 09:17] VITALS: PULSE 79; RESP 18; O2SAT 93
--- NOTE | 2022-12-12 11:06 | PM.DS ---
DS: Providers Provider Date of Service: 12/12/22 Date of admission: 12/07/22 22:17 Primary care physician: PARMJIT Foss DS: Diagnosis Discharge Diagnosis (1) Pneumonia: Status: Acute (2) Hypoxia: Status: Acute (3) COPD (chronic obstructive pulmonary disease): Status: Acute (4) Chronic obstructive pulmonary disease with (acute) exacerbation: Status: Inactive (5) Acute on chronic respiratory failure with hypoxemia: Status: Acute (6) Physical deconditioning: Status: Acute DS: Summary Hospital Course Hospital Course: Admission note HPI Pt is a 62-year-old male with a PMH significant for COPD, GERD, HTN, HLD, anxiety, bipolar disorder, chronic thrombocytopenia, and alcohol use disorder sober for the past 15 years who presents to the ED with?increasing shortness of breath and productive cough for the past week.? Patient has a long history of emphysema with chronic SOB and cough.? Patient states that SOB began increasing last week, patient developed a constant productive cough of thick yellowish sputum.? Patient noted that his O2 stats dropped to 83% on Monday, patient chronically on 3 L O2 at home and normally satting at 94-95%.? Had subjective fever and chills for which he took Tylenol.? Has been experiencing lightheadedness and dizziness for the past 4 days.? This morning patient was leaning over and counting his oxygen tanks in order to report to his medical supplier when patient lost balance and fell, striking his head on the takes and falling over.? Patient does not know whether or not he lost consciousness, but was too weak and fatigued to stand up and remained on the floor from around 08:00 to 13:30 until his got home.? Patient then presented to the emergency room.? Patient complains of headache and right-sided rib pain.? Denies nausea, vomiting, abdominal pain. In the ED patient was afebrile but tachycardic up to 138, and tachypneic to 43, satting as low as 87% on 3L [place]. Labs were significant for leukocytosis of 15.5, stable H&H of 10.0/31.7, platelets of 95, sodium of 132, lactic acid 3.6, random glucose of 203, total bilirubin 3.0, AST 81. CXR showed marked emphysematous changes of the lungs with chronic scarring multifocal opacities in the upper lobes and increasing hazy airspace opacities in the right mid and lower lung that may be developing acute airspace disease.? Negative for displaced rib fracture or focal rib lesion. CT?of head showed no evidence for acute intracranial hemorrhage or edematous territorial infarction. EKG demonstrated sinus tachycardia with rate of 119 and no evidence of ST elevations or depressions. Pt was treated with ceftriaxone, azithromycin, IVF 30 mls/kg bolus, morphine, and albuterol.? Pt will be admitted to the hospital for treatment and further evaluation of severe sepsis in the setting of COPD exacerbation likely secondary to community acquired pneumonia. Hospital course The patient was admitted for evidence of sepsis 2/2 pneumonia seen on chest images and treated with IV antibiotics of Azithromycin and Ceftriaxone as blood cultures remained negative. He was also in Acute on chronic hypoxic respiratory failure in the setting of COPD exacerbation along pneumonia. Treated with IV steroids, Oxygen supplement and nebulizers with gradually better response over the course of hospital stay. was able to particibate with therapy but O2 dropped to 80s on multiple occasions with dyspnea. PT recommended STR but he prefers to go home and do outpatient PT. to be discharged on tapering dose steroid, start Spiriva and ATC nebulizers. Had a Recent fall with Imaging negative for acute fractures or dislocations. PT eval rec SNF placement for rehab but he prefers to go home. Continue tapering dose PRednisone as prescribed Continue antibiotics for 5 more days Use the nebulizer 4-6 times daily for the next 5 days then as needed Start Spiriva inhalor Follow with senior accounts payable specialist as outpatient Time Spent with Patient Time attestation: Total time managing care of this patient today ____ minutes. Discharge coordination time: Greater than 30 minutes Quality: Safe Use of Opioids Does Pt have an Active Cancer Diagnosis on the Problem List?: No Quality: Stroke Does the patient have a stroke diagnosis?: No Physical Exam Vital Signs: Vital Signs: Last Vital Signs Temp 97.3 F 12/12/22 07:48 Pulse 79 12/12/22 09:17 Resp 18 12/12/22 09:17 BP 146/74 H 12/12/22 07:48 Pulse Ox 94 12/12/22 07:48 O2 Del Method Nasal Cannula 12/12/22 07:48 O2 Flow Rate 3.0 12/12/22 07:48 Oxygen Flow Rate 3 12/07/22 15:43 BMI result Body Mass Index 27.0 Const: Other: Constitutional : Awake, interactive, not in distress Neck : Normal inspection, Supple Cardiovascular : RRR, no JVP, no lower extremity edema Respiratory : fair bilateral air entry, no crackles, minimal scattered expiratory wheezes Gastrointestinal: soft, lax, Normal bowel sounds, Non tender Skin : Warm, Dry Neurological : Alert & oriented x3, No focal deficit DS: Data Data Completed and Pending Labs on day of discharge: Laboratory Results - last 24 hr 12/11/22 12:20 Magnesium 2.2 Preliminary micro results at discharge 12/07/22 17:25 Blood Culture - Preliminary Blood - Venous No growth after 48 hours. 12/07/22 16:10 Blood Culture - Preliminary Blood - Venous No growth after 48 hours. Imaging Chest x-ray: Radiologist's impression: ITS Impressions Chest X-Ray 12/07/22 16:32 IMPRESSION: 1. Marked emphysematous change of lungs. Chronic scarring and multifocal opacities in the upper lobes. Increasing hazy airspace opacities in the right mid and lower lung may be developing acute airspace disease. 2. Right ribs. No displaced rib fracture. Ribs X-Ray 12/07/22 16:32 IMPRESSION: 1. Marked emphysematous change of lungs. Chronic scarring and multifocal opacities in the upper lobes. Increasing hazy airspace opacities in the right mid and lower lung may be developing acute airspace disease. 2. Right ribs. No displaced rib fracture. Head CT 12/07/22 18:43 IMPRESSION: No evidence of acute intracranial hemorrhage or edematous territorial infarction. Discharge Plan Discharge Anticipated Discharge Date/Time: 12/12/22 10:54 Patient Disposition: Home, Self-Care Discharge Diagnosis: COPD exacerbation Pneumonia Referrals: Ruchi Alexandre FNP [Primary Care Provider] - 1 Week Discharge Medications: New Spiriva Respimat 2.5 mcg/actuation Mist 2 puff inhalation RDAILY Qty: 4 1RF guaifenesin [Mucinex] 600 mg Tablet Extended Release 12hr 600 mg PO BID Qty: 14 0RF prednisone 10 mg tablet See Taper PO DAILY Qty: 30 0RF Taper: Prednisone 40 mg daily for 3 Days and 0 Hour 30 mg daily for 3 Days and 0 Hour 20 mg daily for 3 Days and 0 Hour 10 mg daily for 3 Days and 0 Hour azithromycin 500 mg tablet 500 mg PO DAILY 5 Days Qty: 5 0RF cefuroxime axetil 500 mg tablet 500 mg PO BID Qty: 10 0RF Continued fluticasone propion-salmeterol [Wixela Inhub] 500-50 mcg/dose blister with device 1 inh inhalation BID Qty: 60 3RF omeprazole 40 mg capsule,delayed release(DR/EC) 40 mg PO TID 30 Days Qty: 90 6RF gabapentin 600 mg tablet 1,200 mg PO BEDTIME prednisone 5 mg tablet 5 mg PO DAILY prednisone 5 mg tablet 5 mg PO DAILY PRN (Reason: Bronchospasm) ipratropium-albuterol 0.5 mg-3 mg(2.5 mg base)/3 mL solution for nebulization 3 ml inhalation Q6-8H PRN (Reason: Wheezing) Qty: 150 2RF clonazepam 1 mg tablet 2 mg PO BEDTIME Narcan 4 mg/actuation spray,non-aerosol 4 mg intranasal Q2M PRN (Reason: Opioid Overdose) Rx Instructions: spray 1 dose into ONE nostril; alternate nostrils w each dose until help arrives albuterol sulfate [ProAir HFA] 90 mcg/actuation HFA aerosol inhaler 2 puff inhalation Q6H PRN (Reason: Wheezing) cyclobenzaprine 10 mg tablet 10 mg PO DAILY PRN (Reason: Muscle Spasm) metoprolol tartrate 25 mg tablet 25 mg PO BID paliperidone [Invega] 6 mg tablet extended release 24hr 6 mg PO QAM paliperidone [Invega] 3 mg tablet extended release 24hr 3 mg PO DAILY sildenafil [Viagra] 100 mg tablet 100 mg PO DAILY PRN (Reason: Sexual Activity) lamotrigine 200 mg tablet 200 mg PO BID atorvastatin 20 mg tablet 20 mg PO BEDTIME gabapentin 600 mg tablet 600 mg PO QD-BID Discharge Orders: Discharge Order (Routine); Ordered 12/12/22 Ordered By: Jorden John Diet: Advance to usual diet Activity on Discharge: As tolerated Stand Alone Forms: Patient Portal Discharge page Care Plan Goals: Read below Health Concerns: Read below Plan of Treatment: Read below Assessment: You were admitted to the hospital for evaluation of difficulties breathing found to have pneumonia with COPD exacerbation. Treated with IV steroids, Antibiotics, Oxygen and nebulizers with good response over the course of hospital stay. evaluated by physical therapist who recommended going to rehab place but you prefer to do it from home. Continue tapering dose PRednisone as prescribed Continue antibiotics for 5 more days Use the nebulizer 4-6 times daily for the next 5 days then as needed Start Spiriva inhalor Follow with senior accounts payable specialist as outpatient
[2022-12-12 11:55] VITALS: PULSE 77; RESP 20; O2SAT 91
--- NOTE | 2022-12-12 12:11 | MHC.CM.PN ---
PT MEDICALLY CLEARED FOR D/C HOME, PT CONT'S TO DECLINE HOME SERVICES AND WILL GO TO OUTPT PT CORE, PT'S S.O. WILL TRANSPORT.
== END 2022-12-12 14:18 | disposition home or self-care (01) | DRG 720 ==
LOC: HO.ED 17:27 → HO.EDOVER 22:24 → HO.IMC 12-08 14:15
PROVIDERS: Registered Nurse Emergency; Admitting Provider Student in an Organized Health Care Education/Training Program; Emergency Provider Emergency Medicine Emergency Medical Services; PCP Registered Nurse; Visit Provider Student in an Organized Health Care Education/Training Program
DX: A41.9 Sepsis, unspecified organism (principal); J96.21 Acute and chronic respiratory failure with hypoxia; E87.21 Acute metabolic acidosis; J18.9 Pneumonia, unspecified organism; D69.59 Other secondary thrombocytopenia; J44.0 Chronic obstructive pulmonary disease with (acute) lower respiratory infection; Z99.81 Dependence on supplemental oxygen; E11.65 Type 2 diabetes mellitus with hyperglycemia; Z66 Do not resuscitate; R73.9 Hyperglycemia, unspecified; F41.9 Anxiety disorder, unspecified; J44.1 Chronic obstructive pulmonary disease with (acute) exacerbation; F31.9 Bipolar disorder, unspecified; Z20.822 Contact with and (suspected) exposure to COVID-19; Z79.51 Long term (current) use of inhaled steroids; Z79.899 Other long term (current) drug therapy
CPT/HCPCS: 0241U; 36415; 70450; 71046; 71100; 71250; 80048; 80053; 80307; 81001; 82550; 83036; 83605; 83735; 84484; 85025; 85027; 87040; 93005; 94640; 97162; 99285; J0456; J0696; J1650; J2270; J2920

== ENCOUNTER → 2022-12-07 15:43 | Outpatient (BNV) | payer MEDICAID, SELFPAY | PROVIDERS: Admitting Provider Student in an Organized Health Care Education/Training Program; Emergency Provider Emergency Medicine Emergency Medical Services; Visit Provider Internal Medicine Cardiovascular Disease | DX: R00.0 Tachycardia, unspecified (principal) | CPT/HCPCS: 93010 ==

== ENCOUNTER → 2022-12-07 22:17 | Outpatient (BNV) | payer MEDICAID, SELFPAY | PROVIDERS: Admitting Provider Student in an Organized Health Care Education/Training Program; Emergency Provider Emergency Medicine Emergency Medical Services; Visit Provider Student in an Organized Health Care Education/Training Program | DX: J44.1 Chronic obstructive pulmonary disease with (acute) exacerbation (principal); J96.21 Acute and chronic respiratory failure with hypoxia; J18.9 Pneumonia, unspecified organism; R53.81 Other malaise | CPT/HCPCS: 99223; 99232; 99233; 99239 ==

== ENCOUNTER 2022-12-15 12:18 | Outpatient (AMB) | payer MEDICAID, SELFPAY ==
--- NOTE | 2022-12-15 12:22 | A.OFFVIS_ITS ---
Intake Vital Signs 12/15/22 12:26 Height 5 ft 10 in Weight 190 lb BMI 27.3 BP 94/60 Blood Pressure Location Lt brachial Position Sitting Pulse 86 Pulse Oximetry (%) 96 Oxygen Delivery Method Nasal Cannula Intake Visit Reasons: S/p Egd Dil Intake Note: Patient follow up for EGD results. Patient cc: SOB and also patient was admitted at the hospital x 7 days due Pneumonia. Client Support Consultant Required: No Accompanied by: Self / Same As Patient Allergies No Known Allergies [No Known Allergies*] Allergy (Verified 09/04/23 10:54) Medication List - Last Reconciled 12/15/22 by Melissa Handy MD albuterol sulfate 90 mcg/actuation (ProAir HFA) 2 puffs inhalation Q6H PRN atorvastatin 20 mg PO BEDTIME azithromycin 500 mg PO DAILY 5 days cefuroxime axetil 500 mg PO BID clonazepam 2 mg PO BEDTIME cyclobenzaprine 10 mg PO DAILY PRN fluticasone propion-salmeterol 500-50 mcg/dose (Wixela Inhub) 1 inh inhalation BID gabapentin 1,200 mg PO BEDTIME gabapentin 600 mg PO QD-BID guaifenesin ER (Mucinex) 600 mg PO BID ipratropium-albuterol 0.5 mg-3 mg(2.5 mg base)/3 mL 3 mL inhalation Q6-8H PRN lamotrigine 200 mg PO BID metoprolol tartrate 25 mg PO BID naloxone 4 mg/actuation (Narcan) 4 mg intranasal Q2M PRN omeprazole 40 mg PO TID 30 days paliperidone ER (Invega) 6 mg PO QAM paliperidone ER (Invega) 3 mg PO DAILY prednisone 5 mg PO DAILY PRN prednisone 5 mg PO DAILY prednisone See Taper mg PO DAILY sildenafil (Viagra) 100 mg PO DAILY PRN tiotropium bromide 2.5 mcg/actuation (Spiriva Respimat) 2 puffs inhalation RDAILY HPI S/p Egd Dil HPI Details GI CLINIC VISIT FOR THIS 62-YEAR-OLD MALE FOR FOLLOW-UP OF GERD AND DYSPHAGIA. 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 Lab studies revealed anemia and elevated liver enzymes- further workup needed for evaluation, obtaining FIT, labs to evaluate anemia and repeat LFTS including an US w elastography ? Patient has severe COPD- Request clearance from Pulm to determine risk vs benefit fro EGD. ? He also has multiple pulmonary nodules that do have an inflammatory type of appearance and behavior over serial CT scans. However to r/o an occult malignancy he will have a navigational bronchoscopy with biopsy of new and increasing pulmonary nodules in the left upper lobe by Dr. Nieves. ? LABS IN [facility]: 04/15/19 H & H of 11 & 32.9, INR 1.2, ? Iron studies were suggestive of iron deficiency anemia ? Normal LFTs except to total bilirubin of 1.2. ? Serologies for celiac sprue were negative. ?IMAGING STUDIES: 06/17 BARIUM SWALLOW SHOWED: ? IMPRESSION: ? Laryngeal penetration with swallowing. No marco a aspiration seen. Small ? hiatal and paraesophageal hernias. Mild mucosal irregularity and ? narrowing of the distal thoracic esophagus concerning for a stricture. ? correlation with endoscopy recommended. Significant gastroesophageal reflux. ? 05/16 ABDOMINAL ULTRASOUND WITH ELASTOGRAPHY SHOWED: ? 1. Mildly echogenic liver suggesting hepatic steatosis. ? 2. Elastography: 1.51, this is compatible with mild to moderate fibrosis. ?ENDOSCOPIC STUDIES:11/11/22 EGD SHOWED: LARYNX: Scarring with thickening of vocal cords with healed ulcer seen on past EGD ESOPHAGUS: Focal ulceration at 34 to 36 cms with luminal narrowing - biopsies obtained.? Hiatal hernia 36 to 40 cms.? Balloon dilation was performed with 13.5 and 15 mm CRE balloon for 60 sec at each level. Triamcinolone 40 mg was injected into the stricture - 10 ml in each quadrant Plan: Repeat EGD with esophageal balloon dilation in 6 to 8 weeks Esophagus, stricture, biopsy: - Cardiac-type mucosa with moderate chronic active inflammation; no intestinal metaplasia seen. - No squamous epithelium seen. 01/2021 EGD SHOWED: LARYNX: scarring with thickening of vocal cords with healed ulcer seen on past EGD ESOPHAGUS: Focal ulceration at 34 to 36 cms with luminal narrowing - multiple biopsies were obtained and st ricture dilated to 15 mm (45 F) with a CRE balloon.? Hiatal hernia 36 to 40 cms.? STOMACH: Mild gastric erythema. Biopsies were obtained. Grade 3 flap valve and slipped fundal wrap on retroflexed examination of the cardia. Plan:? Repeat EGD in 4 to 6 weeks for repeat dilation. 10/29/19 EGD SHOWED: ? Larynx: Some scarring of vocal cords with healed ulcer seen on past EGD ? Esophagus: Ulcerated mucosa from 34 to 36 cms with luminal narrowing - multiple biopsies were obtained. Hiatal hernia 36 to 40 cms. ? Stomach: Mild gastric erythema. Biopsies obtained on past EGD were negative for HP. ? Grade 3 flap valve and slipped fundal wrap seen on retroflexed examination of the cardia. ? Esophagus, stricture, biopsy: ? 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 ? - No dysplasia seen. ? - No fungi or viral changes seen. ? EGD 04/14 Dr. Mccolud- Benign 15mm ulceration of LES, moderate erosive esophagitis, short-segment Max's. ? Colonoscopy 04/15 normal ? TODAY'S VISIT [place] [facility] [place] with [place]. Home O2 increased from 3 to 4L/m by [place] and still having SOB on exertion. Dysphagia is better and able to eat bananas, beans, mashed potatoes and food does not come back up. Food can still get stuck at the GE junction ? ? ? Patient cc: chronic GERD, Abdominal bloating, and some swallowing problems with solid food. ? ? Noted improvement in breathing and swallowing after last procedure and not after the most recent procedure. Noted improvement in dysphagia which lasted for a week. Pt notes recurrent dysphagia with solids and even pills. Noted bad heartburn when he ran out of Apricot Trees. Heartburn improved when he restarted taking it. Stopped smoking 5 yrs ago. PAST VISIT: Complains of intermittent dysphagia every other day predominently to solids - chicken, potatoes, meats and bread. Intermittent regurgitation. Also notes dysphagia with drinking water Weight is the same. ?Tried Simethicone and was not very helpful ? Continues to have heartburn symptoms. ? ? ? Acid reflux is really bad ? Notes regurgitation of food after eating. ? Taking Omeprazole 40 mg twice daily. ? Requesting a pill to help him burp. ? Took Carafate in the past and was not helpful. ? Pt is a PPD smoker- he quit 1 year ago ? he has COPD- oxygen dependant 3L, O2 sats range from 88-93% per pt report ? denies ETOH use- he used to drink heavily ? he uses Tylenol but denies NSAID ? Takes 40 mg Omeprazole for GERD QD- will increase this to BID ? Pt was seen by ENT - Inflammed vocal cords with a bow and two nodules. ? Nodules were non-cancerous. ? He was advised to continue taking medications for?[facility] History Emphysema lung Hx of hepatic disease Bronchitis Closed head injury Soft tissue injury of right chest wall Hypoxia On beta mariano at home Anxiety Bronchitis Ascending aorta dilatation O2 dependent Personal history of nicotine dependence Pulmonary nodules Hypoxemia COPD (chronic obstructive pulmonary disease) Hiatal hernia without gangrene or obstruction GERD without esophagitis Mass of upper lobe of left lung History of drug abuse History of ETOH abuse Bipolar disorder Hyperlipidemia Hypertension Surgical History History of Achilles tendon repair History of endoscopy History of biopsy History of colonoscopy History of repair of hiatal hernia (~06/01/18) Family History Father History of heart attack Mother History of COPD Sister History of cancer Brother Hx of cancer of lung Social History Household Members: Significant Other Housing: House Do you presently have visiting nurse or other home services: No Alcohol intake: never Comment: refusing bed alarm Patient Tobacco Use Status: Former Tobacco user Quit Date: 6 years ago Tobacco use type: Cigarette Second Hand Smoke Exposure: No Advance Directives: No Advance Directives Information Provided: Yes Advance Directives on File: Yes Advance Directives Date on File: 12/08/22 service: No Review of Systems Const All systems reviewed & are unremarkable except as noted in HPI and below Physical Exam Vital Signs: Last Vital Signs Pulse 86 12/15/22 12:26 BP 94/60 12/15/22 12:26 Pulse Ox 96 12/15/22 12:26 Oxygen Delivery Method Nasal Cannula 12/15/22 12:26 BMI result Body Mass Index 27.3 Const General: no acute distress and ill appearing (Chronically ill appearing) Nutritional Appearance: overweight Orientation/consciousness: patient oriented x3 Limitations: other limitations (On home oxygen) HEENT Head: Yes normal to inspection Ears: hearing grossly normal bilaterally Eyes Sclerae: sclerae normal Pupils: Equal, round and reactive pupils present Neck Neck: Yes normal visual inspection Chest Chest palpation & inspection: normal inspection of the chest Resp Other: decreased air entry bilaterally Auscultation: wheezes (Scattered bilateral wheezing) Cardio Palpation: normal PMI Rate: regular rate Rhythm: regular rhythm Heart sounds: S1 normal heart sound present, S2 normal heart sound present and no murmurs GI Palpation (GI): Soft to palpation, nontender and No hepatosplenomegaly present Auscultation: normal bowel sounds Rectal Exam - Male: Yes deferred Skin General skin exam: no rashes or lesions noted Neuro General: patient oriented x3, gait normal and moves all extremities Cranial nerves: Yes Equal, round and reactive pupils present Psych Appearance: grossly normal Mental Status: mental status grossly normal Assessment & Plan Assessment & Plan (1) Hiatal hernia without gangrene or obstruction: Code(s): K44.9 - Diaphragmatic hernia without obstruction or gangrene (2) GERD without esophagitis: Code(s): K21.9 - Gastro-esophageal reflux disease without esophagitis Plan 62 YM with Pulmonary nodules, COPD on home oxygen, smoker - 35 pack years, hypertension, hyperlipidemia, anxiety and bipolar disorder, 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 Patient reports having a Laparoscopic fundoplication for GERD several years ago. 07/24/2019 EGD showed a hiatal hernia, ulcerated mucosa from 34 to 36 cms with luminal narrowing and Grade 3 flap valve and a slipped fundal wrap seen on retroflexed examination of the cardia. Patient was advised to switch to pantoprazole 40 mg twice daily for erosive esophagitis - he prefers to continue taking Prilosec. (has tried different PPI in the past and Prilosec has been most effective). He was offered addition of Carafate - he refused indicating it was not helpful in the past. Patient is interested in surgery for management of GERD with erosive esophagitis. Pt was informed that surgery would carry increased risk because of advanced COPD. Pt was seen by Dr. Serrato in 02/15 regarding fundoplication and does not want to proceed with fundoplication at this point. Metoclopramide was ordered and unable to be prescribed due to a level 2 drug interaction with the invega the patient takes. Simethicone was prescribed at patient's request - to help him burp and was not very helpful. Patient complains of recurrent dysphagia to solids and sometimes to liquids (if he tries to drink water too fast). Pt had multiple EGDs with balloon dilation of esophageal stricture on 08/19 and 09/14/22, 09/26, 10/07, 10/14 and 11/11/22 Patient was advised to schedule a repeat upper endoscopy with dilation and Kenalog injection in 3-4 weeks. 12/15/22 [place] [facility] [place] pneumonia. Home O2 increased from 3 to 4L/m by [place] and still having SOB on exertion. Dysphagia is better and able to eat bananas, beans, mashed potatoes and food does not come back up. Food can still get stuck at the GE junction Pt advised to continue to monitor his symptoms EGD can be scheduled if dysphagia gets worse (after anesthesia approval - pt is considered high risk per anesthesia) FU in 3 months Coding Level of Care Code Est Pt Level 4 (07024) Diagnoses Hiatal hernia without gangrene or obstruction K44.9 GERD without esophagitis K21.9 Time Spent (min) 23
[2022-12-15 12:26] VITALS: BP 94/60; PULSE 86; O2SAT 96; BMI 27.3
== END 2022-12-15 12:52 | disposition home or self-care (01) ==
PROVIDERS: PCP Registered Nurse; Visit Provider Internal Medicine Gastroenterology
DX: K44.9 Diaphragmatic hernia without obstruction or gangrene (principal); K21.9 Gastro-esophageal reflux disease without esophagitis
CPT/HCPCS: 99499

== ENCOUNTER → 2022-12-15 12:18 | Outpatient (BNVA) | payer MEDICAID, SELFPAY | PROVIDERS: PCP Registered Nurse; Visit Provider Internal Medicine Gastroenterology ==

== ENCOUNTER 2022-12-16 08:52 | Outpatient (AMB) | payer MEDICAID, SELFPAY ==
--- NOTE | 2022-12-16 09:15 | MHC.OFFVIS ---
Intake Vital Signs 12/16/22 09:21 Height 5 ft 10 in Weight 183 lb BMI 26.3 BP 110/70 Blood Pressure Location Lt brachial Position Sitting Pulse 80 Pulse Oximetry (%) 90 L Oxygen Delivery Method Nasal Cannula Oxygen Flow Rate 3 Intake Visit Reasons: Follow up Allergies No Known Allergies [No Known Allergies*] Allergy (Verified 12/16/22 09:15) Medication List - Last Reconciled 12/17/22 by Javy Serrato MD albuterol sulfate 90 mcg/actuation (ProAir HFA) 2 puffs inhalation Q6H PRN atorvastatin 20 mg PO BEDTIME azithromycin 500 mg PO DAILY 5 days cefuroxime axetil 500 mg PO BID clonazepam 2 mg PO BEDTIME cyclobenzaprine 10 mg PO DAILY PRN fluticasone propion-salmeterol 500-50 mcg/dose (Wixela Inhub) 1 inh inhalation BID gabapentin 1,200 mg PO BEDTIME gabapentin 600 mg PO QD-BID guaifenesin ER (Mucinex) 600 mg PO BID ipratropium-albuterol 0.5 mg-3 mg(2.5 mg base)/3 mL 3 mL inhalation Q6-8H PRN lamotrigine 200 mg PO BID metoprolol tartrate 25 mg PO BID naloxone 4 mg/actuation (Narcan) 4 mg intranasal Q2M PRN omeprazole 40 mg PO TID 30 days paliperidone ER (Invega) 6 mg PO QAM paliperidone ER (Invega) 3 mg PO DAILY prednisone 5 mg PO DAILY PRN prednisone 5 mg PO DAILY prednisone See Taper mg PO DAILY sildenafil (Viagra) 100 mg PO DAILY PRN tiotropium bromide 2.5 mcg/actuation (Spiriva Respimat) 2 puffs inhalation RDAILY HPI Follow up HPI Details 62 year old man with severe copd oxygen dependent/severe emphysematous disease who tells me he had a recent pneumonia and was in the hospital for that and is still on antibiotics. His previous CT scan of the chest was done on 11/05/2020 compared with 08/05/2020 which show stable upper lobe pulmonary nodules with some traction bronchiectasis.? There are new clustered nodular areas in the lower lobes which do appear inflammatory to me.? Repeat CT scan of the chest was done on 04/30/2021 and compared with previous which shows the nodular areas previously mentioned on the left are now gone.? There is a persistent but stable right-sided nodule measuring 7 x 10 mm in size.? There is no mediastinal lymphadenopathy and of course there is severe emphysematous disease.? Another follow-up CT scan of the chest was done on 10/27/2021 reviewed by me directly showing no changes from the previous scan.? ?He has had waxing and waning nodules over the years and his most recent CT scan reviewed and interepreted by me directly shows new pulmonary nodules in the RML and RLL. The largest in each lobe 1cm with a similar appearance to previous nodules elsewhere. He reports his breathing is stable but labored and he is on oxygen and otherwise denies any unintentional weight loss decreased appetite fevers chills soaking sweats or any new neurologic changes.? He does today have a is significantly force voice which he says happens to him from time to time because of a bow on his vocal cord.? He sees Dr. Hunter and tells me that he says there is nothing that can be done because he would not tolerate surgery.? He was offered a referral to [facility] but did not want to pursue that. [facility]LY [facility] Medical History Anxiety Anxiety Ascending aorta dilatation Bipolar disorder COPD (chronic obstructive pulmonary disease) GERD without esophagitis Hiatal hernia without gangrene or obstruction History of drug abuse History of ETOH abuse Hyperlipidemia Hypertension Hypoxemia 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 On beta mariano at home Personal history of nicotine dependence Pulmonary nodules Surgical History History of Achilles tendon repair History of biopsy History of colonoscopy History of endoscopy History of repair of hiatal hernia (~06/01/18) Family History Father History of heart attack Mother History of COPD Sister History of cancer Brother Hx of cancer of lung Social History Household Members: Significant Other Housing: House Do you presently have visiting nurse or other home services: No Alcohol intake: never Patient Tobacco Use Status: Former Tobacco user Quit Date: 6 years ago Tobacco use type: Cigarette Second Hand Smoke Exposure: No Advance Directives Date on File: 12/08/22 service: No Physical Exam Vital Signs: Last Vital Signs Pulse 80 12/16/22 09:21 BP 110/70 12/16/22 09:21 Pulse Ox 90 L 12/16/22 09:21 Oxygen Delivery Method Nasal Cannula 12/16/22 09:21 Oxygen Flow Rate 3 12/16/22 09:21 BMI result Body Mass Index 26.3 nad rrr ctab abd soft nl bs no le edema Assessment & Plan Assessment & Plan (1) Pneumonia: Code(s): J18.9 - Pneumonia, unspecified organism Qualifiers: Laterality: right Lung location: lower lobe of lung Pneumonia type: due to unspecified organism Qualified Code(s): J18.9 - Pneumonia, unspecified organism Plan: Recent pneumonia probably plays into his current ct picture. On abx and continue to finish course. (2) Pulmonary nodules: Comment: (waxing/waning nodules b/l - new 1.1cm KAE nodule on 07/27/20 CT) but subsequent CT scan she showed resolution. Nodule , 7 x 10 mm nodule in right upper lobe, being monitored closely Patient is being followed by thoracic surgery, Dr. Javy Latham . CT scan at 6 months interval is scheduled. Code(s): R91.8 - Other nonspecific abnormal finding of lung field Plan: I discussed the results of his CT scan with him and explaining how the size shape and change room attendant time in him affects our level of suspicion for malignancy. I do think these nodules are likely inflammatory as they have been in the past. Will arrange for a ct chest in 3 months and f/u with his blueprint duplicator. f/u with me as needed. (3) COPD (chronic obstructive pulmonary disease): Comment: advanced COPD , but doing as good as expected. [place] : Advair 500-50 one inh bid Spiriva Handihalor 1 inhalation daily Duo Neb UdS q 6 hrs W/A . Prednisone ,dose increased to 5 mg 2 tabs a day for two wekks , then try to go back to 1 tab a day .( at his insistance ) ProAir 2 puffs Q 4-6 hours p.r.n. only as emergency rescue inhaler Code(s): J44.9 - Chronic obstructive pulmonary disease, unspecified Plan: f/u with pulmonology Medications: Discontinued prednisone 10 mg (2 x 5 mg) PO DAILY 30 days 60 tabs 3RF Advanced COPD Coding Level of Care Code Est Pt Level 4 (48487) Diagnoses Pneumonia J18.9 Laterality: right Lung location: lower lobe of lung Pneumonia type: due to unspecified organism Pulmonary nodules R91.8 COPD (chronic obstructive pulmonary disease) J44.9
[2022-12-16 09:21] VITALS: BP 110/70; PULSE 80; O2SAT 90; BMI 26.3
== END 2022-12-16 09:35 | disposition home or self-care (01) ==
PROVIDERS: PCP Registered Nurse; Visit Provider Surgery
DX: J18.9 Pneumonia, unspecified organism (principal); R91.8 Other nonspecific abnormal finding of lung field; J44.9 Chronic obstructive pulmonary disease, unspecified

== ENCOUNTER → 2022-12-16 08:52 | Outpatient (BNVA) | payer MEDICAID, SELFPAY | PROVIDERS: PCP Registered Nurse; Visit Provider Surgery | DX: J18.9 Pneumonia, unspecified organism (principal); R91.8 Other nonspecific abnormal finding of lung field; J44.9 Chronic obstructive pulmonary disease, unspecified | CPT/HCPCS: 99212 ==

== ENCOUNTER 2022-12-19 15:44 | Outpatient (AMB) | payer MEDICAID, SELFPAY ==
--- NOTE | 2022-12-19 15:45 | MHC.OFFVIS ---
Intake Vital Signs 12/19/22 15:46 Height 5 ft 10 in Weight 191 lb 12.835 oz BMI 27.5 BP 126/78 Blood Pressure Location Lt brachial Position Sitting Pulse 103 H Pulse Source Pulse Oximeter Pulse Oximetry (%) 90 L Oxygen Delivery Method Room Air Oxygen Flow Rate 3 Intake Visit Reasons: S/p hospital admit Intake Note: Pt presents for a f/u after having pneumonia. He is looking to get more imaging done. 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: No Allergies No Known Allergies [No Known Allergies*] Allergy (Verified 12/19/22 16:14) Medication List - Last Reconciled 12/19/22 by Chirag Cordova MD albuterol sulfate 90 mcg/actuation (ProAir HFA) 2 puffs inhalation Q6H PRN atorvastatin 20 mg PO BEDTIME azithromycin 500 mg PO DAILY 5 days cefuroxime axetil 500 mg PO BID clonazepam 2 mg PO BEDTIME cyclobenzaprine 10 mg PO DAILY PRN fluticasone propion-salmeterol 500-50 mcg/dose (Wixela Inhub) 1 inh inhalation BID gabapentin 1,200 mg PO BEDTIME gabapentin 600 mg PO QD-BID guaifenesin ER (Mucinex) 600 mg PO BID ipratropium-albuterol 0.5 mg-3 mg(2.5 mg base)/3 mL 3 mL inhalation Q6-8H PRN lamotrigine 200 mg PO BID metoprolol tartrate 25 mg PO BID naloxone 4 mg/actuation (Narcan) 4 mg intranasal Q2M PRN omeprazole 40 mg PO TID 30 days paliperidone ER (Invega) 6 mg PO QAM paliperidone ER (Invega) 3 mg PO DAILY prednisone 5 mg PO DAILY PRN prednisone 5 mg PO DAILY prednisone See Taper mg PO DAILY sildenafil (Viagra) 100 mg PO DAILY PRN tiotropium bromide 2.5 mcg/actuation (Spiriva Respimat) 2 puffs inhalation RDAILY Do you need a note to return to daycare/school/sports/work: No HPI S/p hospital admit HPI Details This 62 years old gentleman is here for follow-up after his recent hospitalization. He was admitted with acute exacerbation of COPD and possibility of right upper lobe pneumonia. Treated with a course of antibiotics including azithromycin and cefuroxime . He has had no further fever or chills. He continues to have intermittent cough which is same as usual, he is on oxygen 3 L/minute continuously, still gets short of breath on minimal exertion. His main complaint is ongoing discomfort over the right rib cage, He had morphine for pain, relief when in the hospital . And say is that Tylenol of or Advil does not help him. He seems to be quite anxious. He tends to lose his Hill, which may be due to ongoing use of Advair, and vocal cords dysfunction. FORMERLY [facility] Medical History Anxiety Anxiety Ascending aorta dilatation Bipolar disorder COPD (chronic obstructive pulmonary disease) GERD without esophagitis Hiatal hernia without gangrene or obstruction History of drug abuse History of ETOH abuse Hyperlipidemia Hypertension Hypoxemia 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 On beta mariano at home Personal history of nicotine dependence Pulmonary nodules Surgical History History of Achilles tendon repair History of biopsy History of colonoscopy History of endoscopy History of repair of hiatal hernia (~06/01/18) Family History Father History of heart attack Mother History of COPD Sister History of cancer Brother Hx of cancer of lung Social History Household Members: Significant Other Housing: House Do you presently have visiting nurse or other home services: No Alcohol intake: never Patient Tobacco Use Status: Former Tobacco user Quit Date: 6 years ago Tobacco use type: Cigarette Second Hand Smoke Exposure: No Advance Directives Date on File: 12/08/22 service: No Review of Systems Const All systems reviewed & are unremarkable except as noted in HPI and below Eyes Reports no additional complaints ENT Reports nasal congestion (Mild off and on) Card Denies chest pain, Denies irregular heart rhythm and Denies leg edema Resp Reports as per HPI GI Reports no additional complaints Reports no additional complaints Musc Reports no additional complaints Skin/Breast Reports system reviewed and no additional complaints, except as documented Neuro Reports no additional complaints Psych Reports anxiety and Reports other (Bipolar disorder, stable and controlled) Endo Reports no additional complaints Physical Exam Vital Signs: Last Vital Signs Pulse 103 H 12/19/22 15:46 BP 126/78 12/19/22 15:46 Pulse Ox 90 L 12/19/22 15:46 Oxygen Delivery Method Room Air 12/19/22 15:46 Oxygen Flow Rate 3 12/19/22 15:46 BMI result Body Mass Index 27.5 Const General: comfortable (But anxious), no acute distress, alert and awake Orientation/consciousness: patient oriented x3 HEENT Head: Yes normal to inspection General nose exam: No nasal polyps present and No nasal discharge present Face and sinus: Yes sinuses nontender Mouth: oropharynx normal Throat: Yes posterior oropharynx normal Eyes General: appearance normal, both eyes and all related structures Neck Neck: Yes normal visual inspection, Yes no lymphadenopathy, Yes trachea midline and Yes no JVD Thyroid: Thyroid normal Chest Chest palpation & inspection: normal inspection of the chest, normal palpation of entire chest wall and tenderness (Right mid chest is sensitive to touch) Resp Other: Percussion note resonant, breath sounds are very distant and quiet. He does have a few expiratory wheezes scattered over the chest . Cardio Palpation: normal PMI Rate: regular rate Rhythm: regular rhythm Heart sounds: no gallops and no murmurs GI Palpation (GI): Soft to palpation, nontender, No hepatosplenomegaly present and no masses Auscultation: normal bowel sounds Back/Spine/Pelvis Thoracic/Lumbar Spine: thoracic and lumbar spine normal to inspection and thoraco-lumbar ROM limited Skin General skin exam: no rashes or lesions noted Neuro General: patient oriented x3 and no focal motor deficits Cranial nerves: Yes CN's II-XII intact bilaterally Extrem General: Yes normal to inspection, Yes no clubbing, cyanosis or edema and Yes no calf tenderness Psych Appearance: grossly normal and disheveled (Slightly) Mental Status: other ( ) Speech and movement: Normal speech and movement present Results Reviewed Results Reviewed: Discharge summary from his recent hospitalization, and findings of the CT scan, .are reviewed and discussed with the patient Assessment & Plan Assessment & Plan (1) COPD (chronic obstructive pulmonary disease): Comment: Advanced COPD , but doing as good as expected. CT SCAN of the chest shows extensive degree of pulmonary emphysema and fibrosis on both sides, Along with traction bronchiectasis, and mediastinal lymphadenopathy. On his recent admission 2 weeks ago he has been treated for possible pneumonia right upper lobe complicating his pre-existing advanced lung disease. He has completed his the course of antibiotics . [place] : Advair 500-50 one inh bid Spiriva Handihalor 1 inhalation daily Duo Neb UdS q 6 hrs W/A . Prednisone , 5 MG PODAILY ( At patient's insistence, he is continued on a low-dose of prednisone daily.) ProAir 2 puffs Q 4-6 hours p.r.n. only as emergency rescue inhaler Code(s): J44.9 - Chronic obstructive pulmonary disease, unspecified (2) Pulmonary nodules: Comment: (waxing/waning nodules b/l - new 1.1cm KAE nodule on 07/27/20 CT) but subsequent CT scan she showed resolution. Nodule , 7 x 10 mm nodule in right upper lobe, being monitored closely. Patient is being followed by Dr. Serrato , for the pulmonary nodules, and a repeat CT scan of the chest has been scheduled, at 3 months interval. I showed the images to the patient and explained in detail. He still remains quite anxious and worried about the findings. Code(s): R91.8 - Other nonspecific abnormal finding of lung field (3) Personal history of nicotine dependence: Comment: Longstanding history of smoking but quit 3 years ago Code(s): Z87.891 - Personal history of nicotine dependence (4) O2 dependent: Comment: (continuous, 2 L/min at rest and 3 L/min with exertion) Code(s): Z99.81 - Dependence on supplemental oxygen (5) Anxiety: Comment: He is a known case of bipolar disorder and severe anxiety. Uses clonazepam 1 mg daily Needs lot of reassurance. I will see him again after 1 month. Code(s): F41.9 - Anxiety disorder, unspecified Medications: Discontinued prednisone 10 mg (2 x 5 mg) PO DAILY 30 days 60 tabs 3RF Advanced COPD Coding Level of Care Code Est Pt Level 4 (60629) Diagnoses COPD (chronic obstructive pulmonary disease) J44.9 Pulmonary nodules R91.8 Personal history of nicotine dependence Z87.891 O2 dependent Z99.81 Anxiety F41.9
[2022-12-19 15:46] VITALS: BP 126/78; PULSE 103; O2SAT 90; BMI 27.5
== END 2022-12-19 16:08 | disposition home or self-care (01) ==
PROVIDERS: PCP Registered Nurse; Visit Provider Internal Medicine
DX: J44.9 Chronic obstructive pulmonary disease, unspecified (principal); R91.8 Other nonspecific abnormal finding of lung field; Z87.891 Personal history of nicotine dependence; Z99.81 Dependence on supplemental oxygen; F41.9 Anxiety disorder, unspecified
CPT/HCPCS: 99214

== ENCOUNTER → 2022-12-19 15:44 | Outpatient (BNVA) | payer MEDICAID, SELFPAY | PROVIDERS: PCP Registered Nurse; Visit Provider Internal Medicine | DX: J44.9 Chronic obstructive pulmonary disease, unspecified (principal); R91.8 Other nonspecific abnormal finding of lung field; F41.9 Anxiety disorder, unspecified; Z87.891 Personal history of nicotine dependence; Z99.81 Dependence on supplemental oxygen | CPT/HCPCS: 99212 ==

== ENCOUNTER 2023-01-17 15:47 | Outpatient (REF) | payer MEDICAID, SELFPAY ==
--- NOTE | ~2023-01-17 | XR_ITS ---
EXAMINATION: XR CHEST CLINICAL INFORMATION: Pneumonia. Pain. Thrombocytopenia. COMPARISON: 12/07/2022 TECHNIQUE: 2 views of the chest were obtained. FINDINGS: The cardiomediastinal silhouette is stable. There is diffuse emphysematous change associated with increased interstitial marking/coarsening which was seen previously. There is biapical scarring. There is no new consolidation or evidence for significant pleural effusion. The bony structures and soft tissues are unremarkable. XR/XR chest 2V IMPRESSION: Emphysema with diffuse chronic increased interstitial markings/coarsening. No focal consolidation or pleural effusion.
== END 2023-01-17 15:48 | disposition home or self-care (01) ==
LOC: HO.HHCX 15:47
PROVIDERS: Visit Provider Family Medicine
DX: D69.6 Thrombocytopenia, unspecified (principal)
CPT/HCPCS: 36415; 71046; 85007; 85027; 85610; 85730

== ENCOUNTER 2023-01-17 16:38 | Outpatient (REF) | payer MEDICAID, SELFPAY ==
[2023-01-17 17:50] LABS: INTERNATIONAL NORM RATIO 1.2 (0.9-1.1); Prothrombin Time 14.2 SEC (11.1-13.3)
[2023-01-17 17:52] LABS: Hematocrit 33.3 % (42.0-52.0); Hemoglobin 10.3 g/dl (14.0-18.0); Mean Corpuscular HGB Conc 30.9 g/dl (31.0-36.0); Mean Corpuscular Hemoglobin 30.4 pg (27.0-33.0); Mean Corpuscular Volume 98.2 fL (80.0-98.0); Mean Platelet Volume 13.4 fL (9.4-12.4); Red Blood Count 3.39 X10*6/uL (4.60-5.80); Red Cell Distribution Width 17.5 % (11.0-16.0); White Blood Count 5.3 X10*3/uL (4.8-10.8)
[2023-01-17 17:53] LABS: Partial Thromboplastin Time 29.9 SEC (26.0-36.4)
[2023-01-17 17:58] LABS: PLT ABN DIST 1; Platelet Count 88 X10*3/uL (160-400)
[2023-01-17 21:00] LABS: Band Neutrophils Percent 6 % (3-5); Lymphocytes Absolute Manual 0.7 X10*3/uL (1.2-4.9); Lymphocytes Percent Manual 13 % (20-40); Monocytes Absolute Manual 3.1 X10*3/uL (0.1-1.2); Monocytes Percent Manual 58 % (2-11); Myelocytes Absolute 0.1 X10*/uL; Myelocytes Percent 2 %; Neutrophils Absolute Manual 1.4 X10*3/uL (2.0-8.3); Neutrophils Percent Manual 21 % (45-73); Polychromasia 1+ (0-2) /OIF; RBC Morphology NOTED
[2023-01-17 21:01] LABS: Tear Drop Cells 1+ (0-2) /OIF
[2023-01-17 21:02] LABS: Platelet Estimate DECREASED (NORMAL)
[2023-01-17 21:03] LABS: Ovalocytes 1+ (5-14) /OIF; Platelet Morphology Comment NORMAL
== END 2023-01-17 16:39 | disposition home or self-care (01) ==
LOC: HO.HHCL 16:38
PROVIDERS: Visit Provider Family Medicine
DX: D69.6 Thrombocytopenia, unspecified (principal); Z13.89 Encounter for screening for other disorder
CPT/HCPCS: 36415; 85007; 85027; 85610; 85730

== ENCOUNTER 2023-01-19 15:45 | Outpatient (AMB) | payer MEDICAID, SELFPAY ==
[2023-01-19 15:49] VITALS: BP 134/68; PULSE 86; O2SAT 95; BMI 27.5
--- NOTE | 2023-01-19 15:49 | A.OFFVIS_ITS ---
Intake Vital Signs 01/19/23 15:49 Height 5 ft 10 in Weight 191 lb 12.835 oz BMI 27.5 BP 134/68 Blood Pressure Location Lt brachial Position Sitting Pulse 86 Pulse Source Pulse Oximeter Pulse Oximetry (%) 95 Oxygen Delivery Method Room Air Intake Visit Reasons: COPD follow-up Intake Note: PT. O2 started at 88 and slowly jayla to 95. Allergies No Known Allergies [No Known Allergies*] Allergy (Verified 01/19/23 16:05) Medication List - Last Reconciled 01/19/23 by Chirag Cordova MD albuterol sulfate 90 mcg/actuation (ProAir HFA) 2 puffs inhalation Q6H PRN atorvastatin 20 mg PO BEDTIME azithromycin 500 mg PO DAILY 5 days cefuroxime axetil 500 mg PO BID clonazepam 2 mg PO BEDTIME cyclobenzaprine 10 mg PO DAILY PRN fluticasone propion-salmeterol 500-50 mcg/dose (Wixela Inhub) 1 inh inhalation BID gabapentin 1,200 mg PO BEDTIME gabapentin 600 mg PO QD-BID guaifenesin ER (Mucinex) 600 mg PO BID ipratropium-albuterol 0.5 mg-3 mg(2.5 mg base)/3 mL 3 mL inhalation Q6-8H PRN lamotrigine 200 mg PO BID metoprolol tartrate 25 mg PO BID naloxone 4 mg/actuation (Narcan) 4 mg intranasal Q2M PRN omeprazole 40 mg PO TID 30 days paliperidone ER (Invega) 6 mg PO QAM paliperidone ER (Invega) 3 mg PO DAILY prednisone 5 mg PO DAILY PRN prednisone 5 mg PO DAILY prednisone See Taper mg PO DAILY prednisone 5 mg PO DAILY 30 days sildenafil (Viagra) 100 mg PO DAILY PRN tiotropium bromide 2.5 mcg/actuation (Spiriva Respimat) 2 puffs inhalation RDAILY Do you need a note to return to daycare/school/sports/work: No HPI COPD follow-up HPI Details This 62 years old gentleman, with end-stage chronic obstructive pulmonary disease, oxygen dependent, history of frequent exacerbations, Comes for follow-up after 4 weeks. His acute exacerbation has resolved now he is back to his baseline. However he gets short of breath on minimal exertion. He still has very frequent bouts of cough. He continues to take prednisone 5 mg a day but, once or twice a week he has to double up the dose to 10 mg a day. He also has had a recent course of the cefuroxime by his PCP, for possibility of upper respiratory infection. Today he claims that he is back to his baseline. Most of the conversation was forgetting extra dose of prednisone. [facility] Medical History (Updated 01/19/23 @ 16:15 by Chirag Cordova MD) Anxiety Anxiety Ascending aorta dilatation Bipolar disorder Closed head injury COPD (chronic obstructive pulmonary disease) GERD without esophagitis Hiatal hernia without gangrene or obstruction History of drug abuse History of ETOH abuse Hyperlipidemia Hypertension Hypoxemia Hypoxia 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 On beta mariano at home Personal history of nicotine dependence Pulmonary nodules Soft tissue injury of right chest wall Surgical History History of Achilles tendon repair History of biopsy History of colonoscopy History of endoscopy History of repair of hiatal hernia (~06/01/18) Family History Father History of heart attack Mother History of COPD Sister History of cancer Brother Hx of cancer of lung Social History Household Members: Significant Other Housing: House Do you presently have visiting nurse or other home services: No Alcohol intake: never Patient Tobacco Use Status: Former Tobacco user Quit Date: 6 years ago Tobacco use type: Cigarette Second Hand Smoke Exposure: No Advance Directives Date on File: 12/08/22 service: No Review of Systems Const All systems reviewed & are unremarkable except as noted in HPI and below Eyes Reports no additional complaints ENT Reports nasal congestion (Mild off and on) Card Denies chest pain, Denies irregular heart rhythm and Denies leg edema Resp Reports as per HPI GI Reports no additional complaints Reports no additional complaints Musc Reports no additional complaints Skin/Breast Reports system reviewed and no additional complaints, except as documented Neuro Reports no additional complaints Psych Reports anxiety and Reports other (Bipolar disorder, stable and controlled) Endo Reports no additional complaints Physical Exam Vital Signs: Last Vital Signs Pulse 86 01/19/23 15:49 BP 134/68 01/19/23 15:49 Pulse Ox 95 01/19/23 15:49 Oxygen Delivery Method Room Air 01/19/23 15:49 BMI result Body Mass Index 27.5 Const General: comfortable (But anxious), no acute distress, alert and awake Orientation/consciousness: patient oriented x3 HEENT Head: Yes normal to inspection General nose exam: No nasal polyps present and No nasal discharge present Face and sinus: Yes sinuses nontender Mouth: oropharynx normal Throat: Yes posterior oropharynx normal Eyes General: appearance normal, both eyes and all related structures Neck Neck: Yes normal visual inspection, Yes no lymphadenopathy, Yes trachea midline and Yes no JVD Thyroid: Thyroid normal Chest Chest palpation & inspection: normal inspection of the chest, normal palpation of entire chest wall and tenderness (Right mid chest is sensitive to touch) Resp Other: Percussion note resonant, breath sounds are very distant and quiet. He does not have any wheezes or crepitations on both side, today. Cardio Palpation: normal PMI Rate: regular rate Rhythm: regular rhythm Heart sounds: no gallops and no murmurs GI Palpation (GI): Soft to palpation, nontender, No hepatosplenomegaly present and no masses Auscultation: normal bowel sounds Back/Spine/Pelvis Thoracic/Lumbar Spine: thoracic and lumbar spine normal to inspection and thoraco-lumbar ROM limited Skin General skin exam: no rashes or lesions noted Neuro General: patient oriented x3 and no focal motor deficits Cranial nerves: Yes CN's II-XII intact bilaterally Extrem General: Yes normal to inspection, Yes no clubbing, cyanosis or edema and Yes no calf tenderness Psych Appearance: grossly normal and disheveled (Slightly) Mental Status: other ( ) Speech and movement: Normal speech and movement present Assessment & Plan Assessment & Plan (1) COPD (chronic obstructive pulmonary disease): Comment: Advanced COPD , but doing as good as expected. CT SCAN of the chest showed extensive degree of pulmonary emphysema and fibrosis on both sides, along with traction bronchiectasis, and mediastinal lymphadenopathy. [place] : Advair 500-50 one inh bid Spiriva Handihalor 1 inhalation daily Duo Neb UdS q 6 hrs W/A . Prednisone , 5 MG PO DAILY , and OK for him to take extra dose every 2 or 3 days . ( At patient's insistence, he is continued on a low-dose of prednisone daily.) ProAir 2 puffs Q 4-6 hours p.r.n. only as emergency rescue inhaler Code(s): J44.9 - Chronic obstructive pulmonary disease, unspecified (2) Acute on chronic respiratory failure with hypoxemia: Comment: Patient has chronic respiratory failure with hypoxemia and has been treated with O2 supplementation, He gets acute exacerbation of his respiratory failure due to chest infections, Currently seems to be at his baseline. Advised to keep on using O2 2 L/minute when at rest and 3 L/minute when walking around. Code(s): J96.21 - Acute and chronic respiratory failure with hypoxia (3) Anxiety: Comment: He is a known case of bipolar disorder and severe anxiety. Uses clonazepam 1 mg daily Needs lot of reassurance. I will see him again after 2 month. Code(s): F41.9 - Anxiety disorder, unspecified (4) O2 dependent: Comment: (continuous, 2 L/min at rest and 3 L/min with exertion) Code(s): Z99.81 - Dependence on supplemental oxygen (5) Pulmonary nodules: Comment: (waxing/waning nodules b/l - new 1.1cm KAE nodule on 07/27/20 CT) but subsequent CT scan she showed resolution. Nodule , 7 x 10 mm nodule in right upper lobe, being monitored closely. Patient is being followed by Dr. Serrato , for the pulmonary nodules, and a repeat CT scan of the chest has been scheduled, at 3 months interval. I showed the images to the patient and explained in detail. He still remains quite anxious and worried about the findings. Code(s): R91.8 - Other nonspecific abnormal finding of lung field Medications: Discontinued prednisone 10 mg (2 x 5 mg) PO DAILY 30 days 60 tabs 3RF Advanced COPD Coding Level of Care Code Est Pt Level 4 (45896) Diagnoses COPD (chronic obstructive pulmonary disease) J44.9 Acute on chronic respiratory failure with hypoxemia J96.21 Anxiety F41.9 O2 dependent Z99.81 Pulmonary nodules R91.8
== END 2023-01-19 16:06 | disposition home or self-care (01) ==
PROVIDERS: PCP Registered Nurse; Visit Provider Internal Medicine
DX: J44.9 Chronic obstructive pulmonary disease, unspecified (principal); J96.21 Acute and chronic respiratory failure with hypoxia; F41.9 Anxiety disorder, unspecified; Z99.81 Dependence on supplemental oxygen; R91.8 Other nonspecific abnormal finding of lung field
CPT/HCPCS: 99214

== ENCOUNTER → 2023-01-19 15:45 | Outpatient (BNVA) | payer MEDICAID, SELFPAY | PROVIDERS: PCP Registered Nurse; Visit Provider Internal Medicine | DX: J44.9 Chronic obstructive pulmonary disease, unspecified (principal); J96.21 Acute and chronic respiratory failure with hypoxia; F41.9 Anxiety disorder, unspecified; R91.8 Other nonspecific abnormal finding of lung field; Z99.81 Dependence on supplemental oxygen | CPT/HCPCS: 99212 ==

== ENCOUNTER 2023-01-25 09:22 | Outpatient (REF) | payer MEDICAID, SELFPAY ==
--- NOTE | ~2023-01-25 | US_ITS ---
EXAMINATION: US COMPLETE ABDOMEN WITH LIVER ELASTOGRAPHY CLINICAL INFORMATION: Hepatic fibrosis COMPARISON: 05/21/2019 TECHNIQUE: Real-time imaging of the abdominal viscera. Noninvasive ultrasound liver fibrosis assessment is performed using Brennan ElastPQ point quantification shear wave elastography (2D-SWE) with a C5-2 MHz transducer. Multiple elastography samples are obtained. FINDINGS: PANCREAS: Normal. The visualized pancreatic head and body are normal in appearance. The remainder of the pancreas is obscured from visualization by the overlying bowel gas. ABDOMINAL AORTA: The proximal, middle, and distal aortic segments are normal in caliber. INFERIOR VENA CAVA: Visualized portions are normal. LIVER: Diffuse increased echogenicity. Normal pathology. No focal lesion or intrahepatic biliary duct dilatation. The right lobe measures 16.2 cm in length. The left lobe measures 10.2 cm in length. Portal flow is hepatopedal Shear wave liver elastography median stiffness is 1.33 m/s (reference: normal median stiffness is 1.3 m/s or less). IQR/median stiffness to assess sampling precision is 0.32 (reference: good quality data set is IQR/median stiffness of 0.15 or less). GALLBLADDER: Normal. The gallbladder is physiologically distended without evidence of stones, sludge, polyps, wall thickening or pericholecystic fluid. COMMON BILE DUCT: Normal in caliber measuring 0.6 cm in diameter. RIGHT KIDNEY: Normal. No hydronephrosis. No renal calculi or focal parenchymal lesions. The kidney measures 11 cm in maximum dimension. LEFT KIDNEY: Normal. No hydronephrosis. No renal calculi or focal parenchymal lesions. The kidney measures 10.4 cm in maximum dimension. SPLEEN: Enlarged. The spleen measures 15.7 cm in maximum dimension. No focal lesion. FREE FLUID: None. US/US abdomen comp w elastography IMPRESSION: 1. Changes of hepatic steatosis. Nonspecific moderate splenomegaly. 2. Liver elastography: Although measurements are suggestive of compensated advanced chronic liver disease, there is statistical variability of the sampling which decreases accuracy. REFERENCE: Society of Radiologists in Ultrasound Liver Stiffness Thresholds (2020): LIVER STIFFNESS THRESHOLDS: *Liver Stiffness equal or less than 1.3 m/s: High probability of being normal. *Liver Stiffness less than 1.7 m/s: In the absence of other known clinical signs, rules out compensated advanced chronic liver disease. *Liver Stiffness 1.7-2.1 m/s: Suggestive of compensated advanced chronic liver disease but need further test for confirmation. *Liver Stiffness over 2.1 m/s: Rules in compensated advanced chronic liver disease. *Liver Stiffness over 2.4 m/s: Suggestive of clinically significant portal hypertension. QUALITY OF DATA SET: *IQR/Median value equal or less than 0.15 implies a quality data set. *IQR/Median value over 0.15 implies a poor quality data set. SIGNIFICANT CHANGE FROM PRIOR EXAM: Significant change if liver stiffness measurement is 10% or greater from prior exam. OTHER CONSIDERATIONS: The stage of liver fibrosis may be overestimated in the setting of acute hepatitis, liver inflammation, elevated liver function tests, hepatic vascular congestion, obstructive cholestasis, non-fasting state, and infiltrative diseases such as amyloidosis and lymphoma. In some patients with NAFLD, the liver stiffness thresholds for compensated advanced chronic liver disease may be lower. In causes other than viral hepatitis and NAFLD, liver stiffness thresholds are not well established.
== END 2023-01-25 09:23 | disposition home or self-care (01) ==
LOC: HO.US 09:22
PROVIDERS: PCP Registered Nurse; Visit Provider Family Medicine
DX: K74.00 Hepatic fibrosis, unspecified (principal); D69.6 Thrombocytopenia, unspecified
CPT/HCPCS: 76705; 76981

== ENCOUNTER 2023-02-03 15:18 | Outpatient (REF) | payer MEDICARE, MEDICAID, SELFPAY ==
[2023-02-04 09:38] LABS: HBS Num1 0.13 mIU/mL (0-7.99); HBc Num1 0.17 S/CO (0.00-0.79); HBsAGNum1 0.35 S/CO (0.00-0.99); Hepatitis B Core Antibody Nonreactive (Nonreactive); Hepatitis B Surface Antigen Negative (Negative); ~Hepatitis B Surface Antibody NONREACTIVE (Nonreactive)
[2023-02-04 09:39] LABS: ~HepC Num1 0.14 S/CO (0.00-0.79); ~Hepatitis C Antibody Nonreactive (Nonreactive)
[2023-02-04 09:46] LABS: Hepatitis A Antibody IgG Nonreactive (Nonreactive); ~Hepatitis A Antibody IgG 0.88 S/CO (0.00-0.99)
[2023-02-10 15:43] LABS: FIB-ALT 7 U/L (9-46); FIB-Alpha-2-Macroglobulin 143 mg/dL (106-279); FIB-Apolipoprotein A1 148 mg/dL (94-176); FIB-GGT 19 U/L (3-70); FIB-Haptoglobin 14 mg/dL (43-212); FIB-Total Bilirubin 0.8 mg/dL (0.2-1.2); Liver Fibrosis Score 0.49; Liver Fibrosis Stage F2; Nec Inflam Act Grade A0; Nec Inflam Act Score 0.02
== END 2023-02-03 15:19 | disposition home or self-care (01) ==
LOC: HO.HHCL 15:18
PROVIDERS: Visit Provider Family Medicine
DX: D69.6 Thrombocytopenia, unspecified (principal); K74.00 Hepatic fibrosis, unspecified; Z11.59 Encounter for screening for other viral diseases; Z72.89 Other problems related to lifestyle
CPT/HCPCS: 36415; 81596; 86704; 86706; 86708; 86803; 87340

== ENCOUNTER 2023-03-08 16:27 | Outpatient (REF) | payer MEDICARE, MEDICAID, SELFPAY ==
--- NOTE | ~2023-03-08 | CT_ITS ---
EXAMINATION: CT CHEST WITHOUT CONTRAST CLINICAL INFORMATION: Follow-up pulmonary nodules. COMPARISON: Prior CT examinations, most recently 12/09/2022. TECHNIQUE: Multidetector volumetric CT imaging of the chest was done. Axial MIP volume rendering provided. Sagittal and coronal reformatted images were obtained. This CT examination was performed using dose optimization techniques as appropriate, variously including the following: *Automated exposure control *Adjustment of mA and/or kV according to patient size (this includes techniques or standardized protocols for targeted exams where dose is matched to indication/reason for exam; i.e. extremities or head) *Use of iterative reconstruction technique DLP: 182 mGy-cm FINDINGS: LAB SUPPORT TECH: There are diffuse emphysematous changes, with biapical scarring and bleb and bullous formation. LUNGS: There is diffuse paraseptal and centrilobular emphysematous change. There is vigorous biapical and left perihilar pleural and parenchymal fibrotic scarring, with associated bronchiectasis. There are numerous bilateral upper and lower lobe calcified and noncalcified nodules. One of the largest right upper lobe nodules is situated at the posteromedial apex, measuring 6 mm (5:139). This is stable from 11/05/2020. Abutting the right major fissure medially (5:230), there is a new 7 mm benign pleural-based lymph node. Within the lateral segment of the right middle lobe (5:412), a 4 mm noncalcified subpleural nodule seen. This is stable from 11/05/2020. One of the largest right lower lobe noncalcified nodules is situated within the anterior basal segment, measuring 6 mm (5:402). This is diminished from 12/09/2022. There is interim clearance of multiple larger confluent nodular opacities at the right base, likely postinfectious. One of the largest noncalcified left upper lobe nodules is situated within the apicoposterior segment laterally, measuring 6 mm (5:201). This is stable from 11/05/2020. There are new groupings of tree-in-bud nodules noted within the anteromedial and lateral basal segments of the left lower lobe, ranging from 1-5 mm in maximal diameter. These are particularly well appreciated on the MIP sequence. No mass, infiltrate or focal groundglass opacity is seen. There is no significant small airway thickening. The central airways appear patent. The trachea shows a mild saber sheath configuration. MEDIASTINUM: The thyroid is unremarkable. The ascending thoracic aorta ectatic, measuring 4.2 x 4.0 cm. There is no marco a thoracic aortic aneurysm. There are atherosclerotic calcifications of the great vessel origins and thoracic aorta. No mediastinal or hilar lymphadenopathy is seen. There are benign, calcified mediastinal and left hilar lymph nodes, consistent with chronic granulomatous lung disease. CORONARY ARTERY CALCIFICATION: Marked. PLEURA: There is no pleural effusion. No pleural mass or thickening. AXILLA: No lymphadenopathy. UPPER ABDOMEN: There is a small hiatus hernia. The adrenal glands are unremarkable. OSSEOUS STRUCTURES: There is multi-level lower cervical, thoracic and upper lumbar degenerative disc disease and spondylosis. No acute or aggressive osseous abnormality is seen. CT/CT chest wo IV con IMPRESSION: 1. Clustered right lower lobe nodular opacities have largely resolved in the interim, with significant improvement. These were likely infectious in etiology. 2. There is interim appearance of groupings of 1-5 mm tree-in-bud nodules within the anteromedial and lateral basal segments of the left lower lobe. Tree-in-bud arrangements suggest small airways or small vessels disease related to an infectious or inflammatory etiology. Please correlate clinically. According to the UPDATED 2017 Fleischner Society recommendations, the advised follow-up imaging for solid nodules < 6 mm is: LOW RISK PATIENT: No routine follow-up. HIGH RISK PATIENT: Optional CT at 12 months. 3. There are diffuse emphysematous changes. 4. There are scattered foci of pleural and parenchymal fibrotic scarring, most pronounced within the upper lobes. 5. No thoracic lymphadenopathy or pleural effusion is seen. There are calcified lymph nodes consistent with chronic granulomatous lung disease. 6. There are degenerative changes of the cervicothoracic spine. No acute or aggressive osseous finding is noted. 7. There is a small hiatus hernia. Fleischner guidelines were followed.
== END 2023-03-08 16:28 | disposition home or self-care (01) ==
LOC: HO.CT 16:27
PROVIDERS: PCP Registered Nurse; Visit Provider Internal Medicine
DX: R91.8 Other nonspecific abnormal finding of lung field (principal)
CPT/HCPCS: 71250

== ENCOUNTER 2023-03-09 13:02 | Outpatient (AMB) | payer MEDICARE, MEDICAID, SELFPAY ==
--- NOTE | 2023-03-09 13:05 | A.OFFVIS_ITS ---
Intake Vital Signs 03/09/23 13:06 Height 5 ft 10 in Weight 191 lb 12.835 oz BMI 27.5 BP 117/82 Blood Pressure Location Lt brachial Position Sitting Pulse 72 Intake Visit Reasons: follow up Intake Note: Jony presents in the office as a follow up. CC: He states that his liver, spleen, and anemia. Those are his three concerns today. He states that the Dr told him that there is something up with his liver. Allergies No Known Allergies [No Known Allergies*] Allergy (Verified 09/04/23 10:54) Medication List - Last Reconciled 03/09/23 by Melissa Handy MD albuterol sulfate 90 mcg/actuation (ProAir HFA) 2 puffs inhalation Q6H PRN atorvastatin 20 mg PO BEDTIME azithromycin 500 mg PO DAILY 5 days cefuroxime axetil 500 mg PO BID clonazepam 2 mg PO BEDTIME cyclobenzaprine 10 mg PO DAILY PRN dextroamphetamine-amphetamine 10 mg 1 tab PO DAILY fluticasone propion-salmeterol 500-50 mcg/dose (Wixela Inhub) 1 inh inhalation BID gabapentin 1,200 mg PO BEDTIME gabapentin 600 mg PO QD-BID guaifenesin ER (Mucinex) 600 mg PO BID ipratropium-albuterol 20-100 mcg/actuation (Combivent Respimat) inhalation lamotrigine 200 mg PO BID metoprolol tartrate 25 mg PO BID naloxone 4 mg/actuation (Narcan) 4 mg intranasal Q2M PRN omeprazole 40 mg PO TID 30 days paliperidone ER (Invega) 6 mg PO QAM paliperidone ER (Invega) 3 mg PO DAILY prednisone 5 mg PO DAILY PRN prednisone 5 mg PO DAILY prednisone See Taper mg PO DAILY prednisone 5 mg PO BID 30 days sildenafil (Viagra) 100 mg PO DAILY PRN tiotropium bromide 2.5 mcg/actuation (Spiriva Respimat) 2 puffs inhalation RDAILY HPI follow up HPI Details GI CLINIC VISIT FOR THIS 63-YEAR-OLD MALE FOR FOLLOW-UP OF GERD AND DYSPHAGIA. 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 Lab studies revealed anemia and elevated liver enzymes- further workup needed for evaluation, obtaining FIT, labs to evaluate anemia and repeat LFTS including an US w elastography ? Patient has severe COPD- Request clearance from Pulm to determine risk vs benefit fro EGD. ? He also has multiple pulmonary nodules that do have an inflammatory type of appearance and behavior over serial CT scans. However to r/o an occult malignancy he will have a navigational bronchoscopy with biopsy of new and increasing pulmonary nodules in the left upper lobe by Dr. Nieves. ? LABS IN [facility]: 04/15/19 H & H of 11 & 32.9, INR 1.2, ? Iron studies were suggestive of iron deficiency anemia ? Normal LFTs except to total bilirubin of 1.2. ? Serologies for celiac sprue were negative. ?IMAGING STUDIES: 01/25/23 ABD US SHOWED: 1. Changes of hepatic steatosis. Nonspec ific moderate splenomegaly. 2. Liver elastography: Although measure ments are suggestive of compensated advanced chronic liver disease, there is statistical variability of the sampling which decreases accuracy. 06/17 BARIUM SWALLOW SHOWED: ? IMPRESSION: ? Laryngeal penetration with swallowing. No marco a aspiration seen. Small ? hiatal and paraesophageal hernias. Mild mucosal irregularity and ? narrowing of the distal thoracic esophagus concerning for a stricture. ? correlation with endoscopy recommended. Significant gastroesophageal reflux. ? 05/16 ABDOMINAL ULTRASOUND WITH ELASTOGRAPHY SHOWED: ? 1. Mildly echogenic liver suggesting hepatic steatosis. ? 2. Elastography: 1.51, this is compatible with mild to moderate fibrosis. ?ENDOSCOPIC STUDIES:11/11/22 EGD SHOWED: LARYNX: Scarring with thickening of vocal cords with healed ulcer seen on past EGD ESOPHAGUS: Focal ulceration at 34 to 36 cms with luminal narrowing - biopsies obtained.? Hiatal hernia 36 to 40 cms.? Balloon dilation was performed with 13.5 and 15 mm CRE balloon for 60 sec at each level. Triamcinolone 40 mg was injected into the stricture - 10 ml in each quadrant Plan: Repeat EGD with esophageal balloon dilation in 6 to 8 weeks Esophagus, stricture, biopsy: - Cardiac-type mucosa with moderate environmental field office manager lizz active inflammation; no intestinal metaplasia seen. - No squamous epithelium seen. 01/2021 EGD SHOWED: LARYNX: scarring with thickening of vocal cords with healed ulcer seen on past EGD ESOPHAGUS: Focal ulceration at 34 to 36 cms with luminal narrowing - multiple biopsies were obtained and st ricture dilated to 15 mm (45 F) with a CRE balloon.? Hiatal hernia 36 to 40 cms.? STOMACH: Mild gastric erythema. Biopsies were obtained. Grade 3 flap valve and slipped fundal wrap on retroflexed examination of the cardia. Plan:? Repeat EGD in 4 to 6 weeks for repeat dilation. 10/29/19 EGD SHOWED: ? Larynx: Some scarring of vocal cords with healed ulcer seen on past EGD ? Esophagus: Ulcerated mucosa from 34 to 36 cms with luminal narrowing - multiple biopsies were obtained. Hiatal hernia 36 to 40 cms. ? Stomach: Mild gastric erythema. Biopsies obtained on past EGD were negative for HP. ? Grade 3 flap valve and slipped fundal wrap seen on retroflexed examination of the cardia. ? Esophagus, stricture, biopsy: ? 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 ? - No dysplasia seen. ? - No fungi or viral changes seen. ? EGD 04/14 Dr. Mccloud- Benign 15mm ulceration of LES, moderate erosive esophagitis, short-segment Max's. ? Colonoscopy 04/15 normal ? TODAY'S VISIT Labs and US results reviewed with the patient Used to drink 1-2 beers a day and quitted 25 yrs ago Denies known family hx of liver disease. Complains of worsening dysphagia - eating regular food, jello and bananas Taking meat, potatoes for supper - pt advised to blenderize his food. PAST VISITS: [place] [facility] [place]12[place] with [place]. Home O2 increased from 3 to 4L/m by MD and still having SOB on exertion. Dysphagia is better and able to eat bananas, beans, mashed potatoes and food does not come back up. Food can still get stuck at ? ? ? Patient cc: chronic GERD, Abdominal bloating, and some swallowing problems with solid food. ? ? Noted improvement in breathing and swallowing after last procedure and not after the most recent procedure. Noted improvement in dysphagia which lasted for a week. Pt notes recurrent dysphagia with solids and even pills. Noted bad heartburn when he ran out of PriNew Relicsec. Heartburn improved when he restarted taking it. Stopped smoking 5 yrs ago. PAST VISIT: Complains of intermittent dysphagia every other day predominently to solids - chicken, potatoes, meats and bread. Intermittent regurgitation. Also notes dysphagia with drinking water Weight is the same. ?Tried Simethicone and was not very helpful ? Continues to have heartburn symptoms. ? ? ? Acid reflux is really bad ? Notes regurgitation of food after eating. ? Taking Omeprazole 40 mg twice daily. ? Requesting a pill to help him burp. ? Took Carafate in the past and was not helpful. ? Pt is a PPD smoker- he quit 1 year ago ? he has COPD- oxygen dependant 3L, O2 sats range from 88-93% per pt report ? denies ETOH use- he used to drink heavily ? he uses Tylenol but denies NSAID ? Takes 40 mg Omeprazole for GERD QD- will increase this to BID ? Pt was seen by ENT - Inflammed vocal cords with a bow and two nodules. ? Nodules were non-cancerous. ? He was advised to continue taking medications for?[facility] Medical History Emphysema lung Hx of hepatic disease Bronchitis Closed head injury Soft tissue injury of right chest wall Hypoxia On beta mariano at home Anxiety Bronchitis Ascending aorta dilatation O2 dependent Personal history of nicotine dependence Pulmonary nodules Hypoxemia COPD (chronic obstructive pulmonary disease) Hiatal hernia without gangrene or obstruction GERD without esophagitis Mass of upper lobe of left lung History of drug abuse History of ETOH abuse Bipolar disorder Hyperlipidemia Hypertension Surgical History History of Achilles tendon repair History of endoscopy History of biopsy History of colonoscopy History of repair of hiatal hernia (~06/01/18) Family History Father History of heart attack Mother History of COPD Sister History of cancer Brother Hx of cancer of lung Social History Household Members: Significant Other Housing: House Do you presently have visiting nurse or other home services: No Alcohol intake: never Comment: refusing bed alarm Patient Tobacco Use Status: Former Tobacco user Quit Date: 6 years ago Tobacco use type: Cigarette Second Hand Smoke Exposure: No Advance Directives: No Advance Directives Information Provided: Yes Advance Directives on File: Yes Advance Directives Date on File: 12/08/22 service: No Review of Systems Const All systems reviewed & are unremarkable except as noted in HPI and below Physical Exam Vital Signs: Last Vital Signs Pulse 72 03/09/23 13:06 BP 117/82 03/09/23 13:06 BMI result Body Mass Index 27.5 Const General: no acute distress and ill appearing (Chronically ill-appearing) chr onically Orientation/consciousness: patient oriented x3 Limitations: other limitations (oxygen dependent) HEENT Head: Yes normal to inspection Ears: hearing grossly normal bilaterally Eyes Sclerae: sclerae normal Pupils: Equal, round and reactive pupils present Neck Neck: Yes normal visual inspection Chest Chest palpation & inspection: normal inspection of the chest Resp Effort & Inspection: normal respiratory effort Auscultation: clear to auscultation bilaterally Cardio Palpation: normal PMI Rate: regular rate Rhythm: regular rhythm Heart sounds: S1 normal heart sound present, S2 normal heart sound present and no murmurs GI Palpation (GI): Soft to palpation, nontender and No hepatosplenomegaly present Auscultation: normal bowel sounds Rectal Exam - Male: Yes deferred Skin General skin exam: no rashes or lesions noted Neuro General: patient oriented x3, gait normal and moves all extremities Cranial nerves: Yes Equal, round and reactive pupils present Psych Appearance: grossly normal Mental Status: mental status grossly normal Assessment & Plan Assessment & Plan (1) Esophageal stricture: Code(s): K22.2 - Esophageal obstruction (2) Anemia: Code(s): D64.9 - Anemia, unspecified (3) GERD without esophagitis: Code(s): K21.9 - Gastro-esophageal reflux disease without esophagitis (4) Hiatal hernia without gangrene or obstruction: Code(s): K44.9 - Diaphragmatic hernia without obstruction or gangrene (5) Cirrhosis of liver without ascites: Code(s): K74.60 - Unspecified cirrhosis of liver Plan 63 YM with Pulmonary nodules, COPD on home oxygen, smoker - 35 pack years, hypertension, hyperlipidemia, anxiety and bipolar disorder, 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 Patient reports having a Laparoscopic fundoplication for GERD several years ago. 07/24/2019 EGD showed a hiatal hernia, ulcerated mucosa from 34 to 36 cms with luminal narrowing and Grade 3 flap valve and a slipped fundal wrap seen on retroflexed examination of the cardia. Patient was advised to switch to pantoprazole 40 mg twice daily for erosive esophagitis - he prefers to continue taking Prilosec. (has tried different PPI in the past and Prilosec has been most effective). He was offered addition of Carafate - he refused indicating it was not helpful in the past. Patient is interested in surgery for management of GERD with erosive esophagitis. Pt was informed that surgery would carry increased risk because of advanced COPD. Pt was seen by Dr. Serrato in 02/15 regarding fundoplication and does not want to proceed with fundoplication at this point. Metoclopramide was ordered and unable to be prescribed due to a level 2 drug interaction with the invega the patient takes. Simethicone was prescribed at patient's request - to help him burp and was not very helpful. Patient complains of recurrent dysphagia to solids and sometimes to liquids (if he tries to drink water too fast). Pt had multiple EGDs with balloon dilation of esophageal stricture on 08/19 and 09/14/22, 09/26, 10/07, 10/14 and 11/11/22 REDUCING THE RISK OF LIVER PROGRESSION: patient was advised to completely avoid use of alcohol and lose weight. HCC SURVEILLANCE: the patient is at risk of developing hepatocellular carcinoma given the presence of cirrhosis and need 6 monthly imaging surveillance with either abdominal ultrasound (US) or multiphase cross-sectional imaging (CT or MRI). Last Abd US on 01/25/23 had shown no focal liver lesions suspicious of HCC. He will be scheduled for follow-up liver ultrasound in 6 months for ongoing surveillance. VACCINATIONS: Pt does not have serological evidence of prior exposure to or vaccination against hepatitis a or hepatitis B. Given lack of serological evidence of immunity, he needs to undergo vaccination against both hepatitis a and hepatitis B (with a series of 3 doses at 0, 1 and 6 months). Patient should also remain up-to-date with all age-appropriate vaccinations including vaccination against pneumococcus. As we no longer have vaccines available in our Clinic, I request PCP to arrange this. SURVEILLANCE FOR GASTROESOPHAGEAL VARICES: No varices seen on past EGD. QUESTION OF LIVER TRANSPLANTATION: As pt has never had any hepatic decompensation, and continues to have good hepatic synthetic function with MELD Na score of 13, liver transplantation does not need to be considered at this time. Of note patient is not a candidate for Liver Tx due to advanced lung disea 03/09/23 Used to drink 1-2 beers a day and quitted 25 yrs ago Denies known family hx of liver disease. Complains of worsening dysphagia - eating regular food, jello and bananas Taking meat, potatoes for supper - pt advised to blenderize his food. Pt advised to continue to monitor his symptoms EGD can be scheduled if dsypahgia gets worse (after anesthesia approval) Schedule abdominal US - surveillance for HCC FU in 4 months Orders: Orders Alpha-1 Antitrypsin Phenotype 03/09/23 K74.60 - Unspecified cirrhosis of liver, D64.9 - Anemia, unspecified Ceruloplasmin 03/09/23 K74.60 - Unspecified cirrhosis of liver, D64.9 - Anemia, unspecified IRON PROFILE 03/09/23 K74.60 - Unspecified cirrhosis of liver, D64.9 - Anemia, unspecified Complete Blood Count no Diff 03/09/23 K74.60 - Unspecified cirrhosis of liver, D64.9 - Anemia, unspecified Protein Electrophoresis, Serum 03/09/23 K74.60 - Unspecified cirrhosis of liver, D64.9 - Anemia, unspecified Transglutaminase IgA 03/09/23 K74.60 - Unspecified cirrhosis of liver, D64.9 - Anemia, unspecified Ferritin 03/09/23 D64.9 - Anemia, unspecified Mitochondrial Antibody 03/09/23 K74.60 - Unspecified cirrhosis of liver Liver Panel 03/09/23 K74.60 - Unspecified cirrhosis of liver Vitamin B12 and Folate 03/09/23 K74.60 - Unspecified cirrhosis of liver, D64.9 - Anemia, unspecified Smooth Muscle Antibody 03/09/23 K74.60 - Unspecified cirrhosis of liver, D64.9 - Anemia, unspecified Immunoglobulin A 03/09/23 K74.60 - Unspecified cirrhosis of liver, D64.9 - Anemia, unspecified Medications: New ferrous sulfate 324 mg PO DAILY 90 tabs 1RF 90 days Coding Level of Care Code Est Pt Level 4 (16542) Diagnoses Esophageal stricture K22.2 Anemia D64.9 GERD without esophagitis K21.9 Hiatal hernia without gangrene or obstruction K44.9 Cirrhosis of liver without ascites K74.60 Time Spent (min) 21
[2023-03-09 13:06] VITALS: BP 117/82; PULSE 72; BMI 27.5
== END 2023-03-09 13:53 | disposition home or self-care (01) ==
PROVIDERS: PCP Registered Nurse; Visit Provider Internal Medicine Gastroenterology
DX: K22.2 Esophageal obstruction (principal); D64.9 Anemia, unspecified; K21.9 Gastro-esophageal reflux disease without esophagitis; K44.9 Diaphragmatic hernia without obstruction or gangrene; K74.60 Unspecified cirrhosis of liver
CPT/HCPCS: 99214

== ENCOUNTER 2023-03-09 13:02 | Outpatient (REF) | payer MEDICARE, MEDICAID, SELFPAY ==
[2023-03-09 14:36] LABS: Hematocrit 32.1 % (42.0-52.0); Hemoglobin 9.8 g/dl (14.0-18.0); Mean Corpuscular HGB Conc 30.5 g/dl (31.0-36.0); Mean Corpuscular Hemoglobin 30.1 pg (27.0-33.0); Mean Corpuscular Volume 98.5 fL (80.0-98.0); Mean Platelet Volume 13.2 fL (9.4-12.4); Red Blood Count 3.26 X10*6/uL (4.60-5.80); Red Cell Distribution Width 16.1 % (11.0-16.0); White Blood Count 4.3 X10*3/uL (4.8-10.8)
[2023-03-09 14:37] LABS: Platelet Count 88 X10*3/uL (160-400)
[2023-03-09 15:05] LABS: Alanine Aminotransferase 7 U/L (0-40); Alkaline Phosphatase 66 U/L (39-117); Aspartate Amino Transferase 10 U/L (5-37); Bilirubin Direct 0.4 mg/dL (0.0-0.5); Bilirubin Total 1.2 mg/dL (0.0-1.0); Iron 88 mcg/dL (45-160); Percent Iron Saturation 33 % (15-50); Total Iron Binding Capacity 270 mcg/dL (228-428); Total Protein 7.2 g/dL (6.5-8.0); Unsaturated Iron Binding 182 ug/dL
[2023-03-09 15:18] LABS: Ferritin 45 ng/mL (20-250)
[2023-03-09 15:30] LABS: Folate 6.4 ng/mL (> or = 4.0); Vitamin B12 406 pg/mL (200-900)
[2023-03-13 13:14] LABS: Prot Elec - Alpha1 0.3 g/dL (0.2-0.3); Prot Elec - Alpha2 0.4 g/dL (0.5-0.9); Prot Elec - Beta 1 0.5 g/dL (0.4-0.6); Prot Elec - Beta 2 0.4 g/dL (0.2-0.5); Prot Elec - Gamma 1.3 g/dL (0.8-1.7); Prot Elec - Total Protein 6.9 g/dL (6.1-8.1)
[2023-03-13 13:44] LABS: Ceruloplasmin 19 mg/dL (18-36)
[2023-03-13 14:03] LABS: Immunoglobulin A 622 mg/dL (70-320)
[2023-03-13 14:33] LABS: Mitochondrial Antibodies NEGATIVE (NEGATIVE)
[2023-03-14 13:18] LABS: Transglutaminase IgA <1.0 U/mL
[2023-03-14 23:33] LABS: Smooth Muscle Antibody 29 U (<20)
[2023-03-21 09:29] LABS: A1A Clinical Indication NG; A1A Referring Physician NG
== END 2023-03-09 13:03 | disposition home or self-care (01) ==
LOC: HO.LAB 13:02
PROVIDERS: PCP Registered Nurse; Visit Provider Internal Medicine Gastroenterology
DX: K22.2 Esophageal obstruction (principal); K21.9 Gastro-esophageal reflux disease without esophagitis; K44.9 Diaphragmatic hernia without obstruction or gangrene; K74.60 Unspecified cirrhosis of liver; D64.9 Anemia, unspecified
CPT/HCPCS: 36415; 80076; 82104; 82390; 82607; 82728; 82746; 82784; 83540; 84165; 85027; 86015; 86364; 86381; 99212

== ENCOUNTER 2023-05-02 15:56 | Outpatient (AMB) | payer MEDICARE, MEDICAID, SELFPAY ==
[2023-05-02 16:12] VITALS: BP 120/58; PULSE 96; O2SAT 92; BMI 28.1
--- NOTE | 2023-05-02 16:12 | A.OFFVIS_ITS ---
Intake Vital Signs 05/02/23 16:12 Height 5 ft 10 in Weight 196 lb BMI 28.1 BP 120/58 L Blood Pressure Location Lt brachial Position Sitting Pulse 96 Pulse Source Pulse Oximeter Pulse Oximetry (%) 92 Oxygen Delivery Method Nasal Cannula Oxygen Flow Rate 3 Intake Visit Reasons: COPD Intake Note: pt is here for follow up and states his breathing is the same, will get low when oxygen is off and tries to walk around the house, he is also on Iron for anemia by Dr. Handy Flux Tube Attendant Required: No Allergies No Known Allergies [No Known Allergies*] Allergy (Verified 05/02/23 16:30) Medication List - Last Reconciled 05/02/23 by Chirag Cordova MD albuterol sulfate 90 mcg/actuation (ProAir HFA) 2 puffs inhalation Q6H PRN atorvastatin 20 mg PO BEDTIME clonazepam 2 mg PO BID cyclobenzaprine 10 mg PO DAILY PRN dextroamphetamine-amphetamine 10 mg 1 tab PO DAILY ferrous sulfate 324 mg PO DAILY 90 days fluticasone propion-salmeterol 500-50 mcg/dose (Wixela Inhub) 1 inh inhalation BID gabapentin 1,200 mg PO BEDTIME gabapentin 600 mg PO BID gabapentin 600 mg PO BID ipratropium-albuterol 20-100 mcg/actuation (Combivent Respimat) inhalation lamotrigine 200 mg PO BID metoprolol tartrate 25 mg PO BID naloxone 4 mg/actuation (Narcan) 4 mg intranasal Q2M PRN omeprazole 40 mg PO TID 30 days paliperidone ER (Invega) 6 mg PO QAM paliperidone ER (Invega) 3 mg PO DAILY prednisone 5 mg PO BID 30 days prednisone 5 mg PO DAILY sildenafil (Viagra) 100 mg PO DAILY PRN tiotropium bromide 2.5 mcg/actuation (Spiriva Respimat) 2 puffs inhalation RDAILY Do you need a note to return to daycare/school/sports/work: No HPI COPD HPI Details ANNETTA COMES AFTER 2 MONTHS FOR HIS ROUTINE FOLLOW-UP. HIS PULMONARY CONDITION HAS BASICALLY REMAINED STABLE. HE USES O2 24 HOURS A DAY, MOSTLY 3 L/MINUTE SOMETIME HAS TO INCREASE TO 4 L/MINUTE. HE HAS HAD NO ACUTE EXACERBATION. HE JUST CONCERNED ABOUT THE FINDINGS OF HIS CT SCAN WHICH HE JUST HAD 2 WEEKS AGO. WEIGHT HAS REMAINED STABLE. [facility] Medical History Closed head injury Soft tissue injury of right chest wall Hypoxia On beta mariano at home Anxiety Ascending aorta dilatation O2 dependent Personal history of nicotine dependence Pulmonary nodules Hypoxemia COPD (chronic obstructive pulmonary disease) Hiatal hernia without gangrene or obstruction GERD without esophagitis Mass of upper lobe of left lung History of drug abuse History of ETOH abuse Anxiety Bipolar disorder Hyperlipidemia Hypertension Surgical History History of Achilles tendon repair History of endoscopy History of biopsy History of colonoscopy History of repair of hiatal hernia (~06/01/18) Family History Father History of heart attack Mother History of COPD Sister History of cancer Brother Hx of cancer of lung Social History Household Members: Significant Other Housing: House Do you presently have visiting nurse or other home services: No Alcohol intake: never Comment: refusing bed alarm Patient Tobacco Use Status: Former Tobacco user Quit Date: 6 years ago Tobacco use type: Cigarette Second Hand Smoke Exposure: No Advance Directives Date on File: 12/08/22 service: No Review of Systems Const All systems reviewed & are unremarkable except as noted in HPI and below Eyes Reports no additional complaints ENT Reports nasal congestion (Mild off and on) Card Denies chest pain, Denies irregular heart rhythm and Denies leg edema Resp Reports as per HPI GI Reports no additional complaints Reports no additional complaints Musc Reports no additional complaints Skin/Breast Reports system reviewed and no additional complaints, except as documented Neuro Reports no additional complaints Psych Reports anxiety and Reports other (Bipolar disorder, stable and controlled) Endo Reports no additional complaints Physical Exam Vital Signs: Last Vital Signs Pulse 96 05/02/23 16:12 BP 120/58 L 05/02/23 16:12 Pulse Ox 92 05/02/23 16:12 Oxygen Delivery Method Nasal Cannula 05/02/23 16:12 Oxygen Flow Rate 3 05/02/23 16:12 BMI result Body Mass Index 28.1 Const General: comfortable (But anxious), no acute distress, alert and awake Orientation/consciousness: patient oriented x3 HEENT Head: Yes normal to inspection General nose exam: No nasal polyps present and No nasal discharge present Face and sinus: Yes sinuses nontender Mouth: oropharynx normal Throat: Yes posterior oropharynx normal Eyes General: appearance normal, both eyes and all related structures Neck Neck: Yes normal visual inspection, Yes no lymphadenopathy, Yes trachea midline and Yes no JVD Thyroid: Thyroid normal Chest Chest palpation & inspection: normal inspection of the chest, normal palpation of entire chest wall and tenderness (Right mid chest is sensitive to touch) Resp Other: Percussion note resonant, breath sounds are very distant and quiet. He does not have any wheezes or crepitations on both side, today. Cardio Palpation: normal PMI Rate: regular rate Rhythm: regular rhythm Heart sounds: no gallops and no murmurs GI Palpation (GI): Soft to palpation, nontender, No hepatosplenomegaly present and no masses Auscultation: normal bowel sounds Back/Spine/Pelvis Thoracic/Lumbar Spine: thoracic and lumbar spine normal to inspection and thoraco-lumbar ROM limited Skin General skin exam: no rashes or lesions noted Neuro General: patient oriented x3 and no focal motor deficits Cranial nerves: Yes CN's II-XII intact bilaterally Extrem General: Yes normal to inspection, Yes no clubbing, cyanosis or edema and Yes no calf tenderness Psych Appearance: grossly normal and disheveled (Slightly) Mental Status: other ( ) Speech and movement: Normal speech and movement present Results Reviewed Results Reviewed: CT SCAN OF THE CHEST, SHOWS EMPHYSEMA USUAL. NO LARGE MASS. MULTIPLE CLUSTERS OF NODULAR DENSITIES IN BOTH LUNGS, MOST LIKELY INFLAMMATORY IN NATURE ( BRONCHITIS/ BRONCHIECTASIS ) Assessment & Plan Assessment & Plan (1) COPD (chronic obstructive pulmonary disease): Comment: Advanced COPD , but doing as good as expected. CT SCAN of the chest showed extensive degree of pulmonary emphysema and fibrosis on both sides, along with traction bronchiectasis, and mediastinal lymphadenopathy. [place] : Advair 500-50 one inh bid Spiriva Handihalor 1 inhalation daily Duo Neb UdS q 6 hrs W/A . Prednisone , 5 MG PO DAILY , and OK for him to take extra dose every 2 or 3 days . ( At patient's insistence, he is continued on a low-dose of predn isone daily.) ProAir 2 puffs Q 4-6 hours p.r.n. only as emergency rescue inhaler/ OR COMBIVENT RESPIMAT 1 INHALATION Q 6 HOURS P.R.N.. Code(s): J44.9 - Chronic obstructive pulmonary disease, unspecified Plan: ABOVE (2) Acute on chronic respiratory failure with hypoxemia: Comment: Patient has chronic respiratory failure with hypoxemia and has been treated with O2 supplementation, He gets acute exacerbation of his respiratory failure due to chest infections, Currently seems to be at his baseline. Advised to keep on using O2 2 L/minute when at rest and 3 L/minute when walking around. Code(s): J96.21 - Acute and chronic respiratory failure with hypoxia Plan: ABOVE (3) Pulmonary nodules: Comment: (waxing/waning nodules b/l - new 1.1cm KAE nodule on 07/27/20 CT) but subsequent CT scan she showed resolution. Nodule , 7 x 10 mm nodule in right upper lobe, being monitored closely. Patient is being followed by Dr. Serrato , for the pulmonary nodules, and a repeat CT scan of the chest has been scheduled, at 3 months interval. I showed the images to the patient and explained in detail. He still remains quite anxious and worried about the findings. Code(s): R91.8 - Other nonspecific abnormal finding of lung field Plan: I EXPLAINED TO HIM THE RESULTS OF CT SCAN. BASICALLY HE HAS MULTIPLE CLUSTERS OF NODULAR DENSITIES THEY ARE MOST LIKELY DUE TO INFLAMMATION, AND BRONCHIECTATIC CHANGES. I REASSURED HIM. Coding Level of Care Code Est Pt Level 3 (50622) Diagnoses COPD (chronic obstructive pulmonary disease) J44.9 Acute on chronic respiratory failure with hypoxemia J96.21 Pulmonary nodules R91.8
== END 2023-05-02 16:23 | disposition home or self-care (01) ==
PROVIDERS: PCP Registered Nurse; Visit Provider Internal Medicine
DX: J44.9 Chronic obstructive pulmonary disease, unspecified (principal); J96.21 Acute and chronic respiratory failure with hypoxia; R91.8 Other nonspecific abnormal finding of lung field
CPT/HCPCS: 99213

== ENCOUNTER → 2023-05-02 15:56 | Outpatient (BNVA) | payer MEDICARE, MEDICAID, SELFPAY | PROVIDERS: PCP Registered Nurse; Visit Provider Internal Medicine | DX: J44.9 Chronic obstructive pulmonary disease, unspecified (principal); J96.21 Acute and chronic respiratory failure with hypoxia; R91.8 Other nonspecific abnormal finding of lung field | CPT/HCPCS: 99212 ==

== ENCOUNTER 2023-05-04 12:19 | Outpatient (AMB) | payer MEDICAID, SELFPAY ==
--- NOTE | 2023-05-04 12:26 | A.OFFVIS_ITS ---
Intake Vital Signs 05/04/23 12:39 Height 5 ft 10 in Weight 190 lb BMI 27.3 BP 118/57 L Blood Pressure Location Lt brachial Position Sitting Pulse 80 Intake Visit Reasons: 3 month follow up Intake Note: Patient follow up for Anemia and lab results. Patient cc: SOB, tiredness, and some swallowing problems. Clothes Ironer Required: No Accompanied by: Self / Same As Patient Allergies No Known Allergies [No Known Allergies*] Allergy (Verified 09/04/23 10:54) Medication List - Last Reconciled 05/04/23 by Melissa Handy MD albuterol sulfate 90 mcg/actuation (ProAir HFA) 2 puffs inhalation Q6H PRN atorvastatin 20 mg PO BEDTIME clonazepam 2 mg PO BID cyclobenzaprine 10 mg PO DAILY PRN dextroamphetamine-amphetamine 10 mg 1 tab PO DAILY ferrous sulfate 324 mg PO DAILY 90 days fluticasone propion-salmeterol 500-50 mcg/dose (Wixela Inhub) 1 inh inhalation BID gabapentin 1,200 mg PO BEDTIME gabapentin 600 mg PO BID gabapentin 600 mg PO BID ipratropium-albuterol 20-100 mcg/actuation (Combivent Respimat) inhalation lamotrigine 200 mg PO BID metoprolol tartrate 25 mg PO BID naloxone 4 mg/actuation (Narcan) 4 mg intranasal Q2M PRN omeprazole 40 mg PO TID 30 days paliperidone ER (Invega) 6 mg PO QAM paliperidone ER (Invega) 3 mg PO DAILY prednisone 5 mg PO BID 30 days prednisone 5 mg PO DAILY sildenafil (Viagra) 100 mg PO DAILY PRN tiotropium bromide 2.5 mcg/actuation (Spiriva Respimat) 2 puffs inhalation RDAILY HPI 3 month follow up HPI Details GI CLINIC VISIT FOR THIS 63-YEAR-OLD MALE FOR FOLLOW-UP OF GERD AND DYSPHAGIA. 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 Lab studies revealed anemia and elevated liver enzymes- further workup needed for evaluation, obtaining FIT, labs to evaluate anemia and repeat LFTS including an US w elastography ? Patient has severe COPD- Request clearance from Pulm to determine risk vs benefit fro EGD. ? He also has multiple pulmonary nodules that do have an inflammatory type of appearance and behavior over serial CT scans. However to r/o an occult malignancy he will have a navigational bronchoscopy with biopsy of new and increasing pulmonary nodules in the left upper lobe by Dr. Nieves. ? LABS IN [facility]: 04/15/19 H & H of 11 & 32.9, INR 1.2, ? Iron studies were suggestive of iron deficiency anemia ? Normal LFTs except to total bilirubin of 1.2. ? Serologies for celiac sprue were negative. ?IMAGING STUDIES: 01/25/23 ABD US SHOWED: 1. Changes of hepatic steatosis. Nonspec ific moderate splenomegaly. 2. Liver elastography: Although measure ments are suggestive ofcompensated advanced chronic liver disease, there is statistical variability of the sampling which decreases accuracy. 06/17 BARIUM SWALLOW SHOWED:? IMPRES CÉSAR: ? Laryngeal penetration with swallowing. No marco a aspiration seen. Small ? hiatal and paraesophageal hernias. Mild mucosal irregularity and ? narrowing of the distal thoracic esophagus concerning for a stricture. ? correlation with endoscopy recommended. Significant gastroesophageal reflux. ? 05/16 ABDOMINAL ULTRASOUND WITH ELASTOGRAPHY SHOWED: ? 1. Mildly echogenic liver suggesting hepatic steatosis. ? 2. Elastography: 1.51, this is compatible with mild to moderate fibrosis. ?ENDOSCOPIC STUDIES:11/11/22 EGD SHOWED: LARYNX: Scarring with thickening of vocal cords with healed ulcer seen on past EGD ESOPHAGUS: Focal ulceration at 34 to 36 cms with luminal narrowing - biopsies obtained.? Hiatal hernia 36 to 40 cms.? Balloon dilation was performed with 13.5 and 15 mm CRE balloon for 60 sec at each level. Triamcinolone 40 mg was injected into the stricture - 10 ml in each quadrant Plan: Repeat EGD with esophageal balloon dilation in 6 to 8 weeks Esophagus, stricture, biopsy: - Cardiac-type mucosa with moderate hearing care practitioner lizz active inflammation; no intestinal metaplasia seen. - No squamous epithelium seen. 01/2021 EGD SHOWED: LARYNX: scarring with thickening of vocal cords with healed ulcer seen on past EGD ESOPHAGUS: Focal ulceration at 34 to 36 cms with luminal narrowing - multiple biopsies were obtained and st ricture dilated to 15 mm (45 F) with a CRE balloon.?Hiatal hernia 36 to 40 cms.? STOMACH: Mild gastric erythema. Biopsies were obtained. Grade 3 flap valve and slipped fundal wrap on retroflexed examination of the cardia. Plan:? Repeat EGD in 4 to 6 weeks for repeat dilation. 10/29/19 EGD SHOWED:? Larynx: Some sc arring of vocal cords with healed ulcer seen on past EGD ? Esophagus: Ulcerated mucosa from 34 to 36 cms with luminal narrowing - multiple biopsies were obtained. Hiatal hernia 36 to 40 cms. ? Stomach: Mild gastric erythema. Biopsies obtained on past EGD were negative for HP. ? Grade 3 flap valve and slipped fundal wrap seen on retroflexed examination of the cardia. ? Esophagus, stricture, biopsy: ? 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 ? - No dysplasia seen. ? - No fungi or viral changes seen. ? EGD 04/14 Dr. Mccloud- Benign 15mm ulceration of LES, moderate erosive esophagitis, short-segment Max's. ? Colonoscopy 04/15 normal ? TODAY'S VISIT Patient cc: SOB, tiredness, and some swallowing problems. Continues to have GERD and dysphagia Eats potatoes, peas, bananas, jello and maintaining his weight. Usually blenderizes the meat. Heartburn is a little better. Complains of RUQ pain radiating laterally to the back Labs and US results reviewed with the patient Used to drink 1-2 beers a day and quitted 25 yrs ago Denies known family hx of liver disease. Complains of worsening dysphagia - eating regular food, jello and bananas Taking meat, potatoes for supper - pt advised to blenderize his food. PAST VISITS: Hospitalized at [facility] 12/07 to 12/12/22 with pneumonia. Home O2 increased from 3 to 4L/m by CA and still having SOB on exertion. Dysphagia is better and able to eat bananas, beans, mashed potatoes and food does not come back up. Food can still get stuck at ? ? ? Patient cc: chronic GERD, Abdominal bloating, and some swallowing problems with solid food. ? ? Noted improvement in breathing and swallowing after last procedure and not after the most recent procedure. Noted improvement in dysphagia which lasted for a week. Pt notes recurrent dysphagia with solids and even pills. Noted bad heartburn when he ran out of etrigg. Heartburn improved when he restarted taking it. Stopped smoking 5 yrs ago. PAST VISIT: Complains of intermittent dysphagia every other day predominently to solids - chicken, potatoes, meats and bread. Intermittent regurgitation. Also notes dysphagia with drinking water Weight is the same. ?Tried Simethicone and was not very helpful ? Continues to have heartburn symptoms. ? ? ? Acid reflux is really bad ? Notes regurgitation of food after eating. ? Taking Omeprazole 40 mg twice daily. ? Requesting a pill to help him burp. ? Took Carafate in the past and was not helpful. ? Pt is a PPD smoker- he quit 1 year ago ? he has COPD- oxygen dependant 3L, O2 sats range from 88-93% per pt report ? denies ETOH use- he used to drink heavily ? he uses Tylenol but denies NSAID ? Takes 40 mg Omeprazole for GERD QD- will increase this to BID ? Pt was seen by ENT - Inflammed vocal cords with a bow and two nodules. ? Nodules were non-cancerous. ? He was advised to continue taking medications for?[facility] Medical History Emphysema lung Hx of hepatic disease Bronchitis Closed head injury Soft tissue injury of right chest wall Hypoxia On beta mariano at home Anxiety Bronchitis Ascending aorta dilatation O2 dependent Personal history of nicotine dependence Pulmonary nodules Hypoxemia COPD (chronic obstructive pulmonary disease) Hiatal hernia without gangrene or obstruction GERD without esophagitis Mass of upper lobe of left lung History of drug abuse History of ETOH abuse Bipolar disorder Hyperlipidemia Hypertension Surgical History History of Achilles tendon repair History of endoscopy History of biopsy History of colonoscopy History of repair of hiatal hernia (~06/01/18) Family History Father History of heart attack Mother History of COPD Sister History of cancer Brother Hx of cancer of lung Social History Household Members: Significant Other Housing: House Do you presently have visiting nurse or other home services: No Alcohol intake: never Comment: refusing bed alarm Patient Tobacco Use Status: Former Tobacco user Quit Date: 6 years ago Tobacco use type: Cigarette Second Hand Smoke Exposure: No Advance Directives: No Advance Directives Information Provided: Yes Advance Directives on File: Yes Advance Directives Date on File: 12/08/22 service: No Review of Systems Const All systems reviewed & are unremarkable except as noted in HPI and below Physical Exam Vital Signs: Last Vital Signs Pulse 80 05/04/23 12:39 BP 118/57 L 05/04/23 12:39 BMI result Body Mass Index 27.3 Const General: no acute distress, alert, awake and ill appearing (Chronically ill- appearing) Nutritional Appearance: overweight Orientation/consciousness: patient oriented x3 Limitations: other limitations (On home oxygen) HEENT Head: Yes normal to inspection Ears: hearing grossly normal bilaterally General nose exam: No nasal polyps present and No nasal discharge present Face and sinus: Yes sinuses nontender Throat: Yes posterior oropharynx normal Eyes General: appearance normal, both eyes and all related structures Sclerae: sclerae normal Pupils: Equal, round and reactive pupils present Neck Neck: Yes normal visual inspection, Yes no lymphadenopathy, Yes trachea midline and Yes no JVD Thyroid: Thyroid normal Chest Chest palpation & inspection: normal inspection of the chest, normal palpation of entire chest wall and tenderness (Right mid chest is sensitive to touch) Resp Other: Distant breath sounds with decreased air entry. Scattered expiratory wheezes bilaterally Cardio Palpation: normal PMI Rate: regular rate Rhythm: regular rhythm Heart sounds: no gallops and no murmurs GI Palpation (GI): Soft to palpation, nontender, No hepatosplenomegaly present and no masses Auscultation: normal bowel sounds Rectal Exam - Male: Yes deferred Back/Spine/Pelvis Thoracic/Lumbar Spine: thoracic and lumbar spine normal to inspection and thoraco-lumbar ROM limited Skin General skin exam: no rashes or lesions noted Neuro General: patient oriented x3 and no focal motor deficits Cranial nerves: Yes CN's II-XII intact bilaterally and Yes Equal, round and reactive pupils present Extrem General: Yes normal to inspection, Yes no clubbing, cyanosis or edema and Yes no calf tenderness Psych Appearance: grossly normal and disheveled (Slightly) Mental Status: other ( ) Speech and movement: Normal speech and movement present Assessment & Plan Assessment & Plan (1) Cirrhosis of liver without ascites: Code(s): K74.60 - Unspecified cirrhosis of liver (2) Anemia: Code(s): D64.9 - Anemia, unspecified (3) Hiatal hernia without gangrene or obstruction: Code(s): K44.9 - Diaphragmatic hernia without obstruction or gangrene (4) GERD without esophagitis: Code(s): K21.9 - Gastro-esophageal reflux disease without esophagitis Plan 63 YM with Pulmonary nodules, COPD on home oxygen, smoker - 35 pack years, hypertension, hyperlipidemia, anxiety and bipolar disorder, 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 Patient reports having a Laparoscopic fundoplication for GERD several years ago. 07/24/2019 EGD showed a hiatal hernia, ulcerated mucosa from 34 to 36 cms with luminal narrowing and Grade 3 flap valve and a slipped fundal wrap seen on retroflexed examination of the cardia. Patient was advised to switch to pantoprazole 40 mg twice daily for erosive esophagitis - he prefers to continue taking Prilosec. (has tried different PPI in the past and Prilosec has been most effective). He was offered addition of Carafate - he refused indicating it was not helpful in the past. Patient is interested in surgery for management of GERD with erosive esophagitis. Pt was informed that surgery would carry increased risk because of advanced COPD. Pt was seen by Dr. Serrato in 02/15 regarding fundoplication and does not want to proceed with fundoplication at this point. Metoclopramide was ordered and unable to be prescribed due to a level 2 drug interaction with the invega the patient takes. Simethicone was prescribed at patient's request - to help him burp and was not very helpful. Patient complains of recurrent dysphagia to solids and sometimes to liquids (if he tries to drink water too fast). Pt had multiple EGDs with balloon dilation of esophageal stricture on 08/19 and 09/14/22, 09/26, 10/07, 10/14 and 11/11/22 REDUCING THE RISK OF LIVER PROGRESSION: patient was advised to completely avoid use of alcohol and lose weight. HCC SURVEILLANCE: the patient is at risk of developing hepatocellular carcinoma given the presence of cirrhosis and need 6 monthly imaging surveillance with either abdominal ultrasound (US) or multiphase cross-sectional imaging (CT or MRI). Last Abd US on 01/25/23 had shown no focal liver lesions suspicious of HCC. He will be scheduled for follow-up liver ultrasound in 6 months for ongoing surveillance. VACCINATIONS: Pt does not have serological evidence of prior exposure to or vaccination against hepatitis a or hepatitis B. Given lack of serological evidence of immunity, he needs to undergo vaccination against both hepatitis a and hepatitis B (with a series of 3 doses at 0, 1 and 6 months). Patient should also remain up-to-date with all age-appropriate vaccinations including vaccination against pneumococcus. As we no longer have vaccines available in our Clinic, I request PCP to arrange this. SURVEILLANCE FOR GASTROESOPHAGEAL VARICES: No varices seen on past EGD. QUESTION OF LIVER TRANSPLANTATION: As pt has never had any hepatic decompensation, and continues to have good hepatic synthetic function with MELD Na score of 13, liver transplantation does not need to be considered at this time. Of note patient is not a candidate for Liver Tx due to advanced lung disea 05/04/23 Continues to have GERD and dysphagia Eats potatoes, peas, bananas, jello and maintaining his weight. Usually blenderizes the meat. Heartburn is a little better. Pt advised to continue to monitor his symptoms EGD can be scheduled if dsypahgia gets worse (after anesthesia approval) Schedule abdominal US - surveillance for HCC FU in 4 months Orders: Orders US abdomen limited 07/28/23 K74.60 - Unspecified cirrhosis of liver Medications: Refilled ferrous sulfate 324 mg PO DAILY 90 tabs 1RF 90 days D64.9 - Anemia, unspecified Coding Level of Care Code Est Pt Level 3 (36483) Diagnoses Cirrhosis of liver without ascites K74.60 Anemia D64.9 Hiatal hernia without gangrene or obstruction K44.9 GERD without esophagitis K21.9 Time Spent (min) 15
[2023-05-04 12:39] VITALS: BP 118/57; PULSE 80; BMI 27.3
== END 2023-05-04 13:11 | disposition home or self-care (01) ==
PROVIDERS: Visit Provider Internal Medicine Gastroenterology
DX: K74.60 Unspecified cirrhosis of liver (principal); D64.9 Anemia, unspecified; K44.9 Diaphragmatic hernia without obstruction or gangrene; K21.9 Gastro-esophageal reflux disease without esophagitis
CPT/HCPCS: 99499

== ENCOUNTER → 2023-05-04 12:19 | Outpatient (BNVA) | payer MEDICAID, SELFPAY | PROVIDERS: Visit Provider Internal Medicine Gastroenterology ==

== ENCOUNTER 2023-06-19 14:48 | Outpatient (REF) | payer MEDICARE, MEDICAID, SELFPAY ==
--- NOTE | ~2023-06-19 | US_ITS ---
EXAMINATION: US ABDOMEN LIMITED CLINICAL INFORMATION: Unspecified cirrhosis of the liver. COMPARISON: Ultrasound abdomen complete with elastography 01/25/2023. Limited abdominal ultrasound with elastography 05/21/2019. TECHNIQUE: Real-time imaging of the right upper quadrant abdominal viscera. FINDINGS: PANCREAS: Normal head and body, the tail is obscured by bowel gas. LIVER: There are limited views of the liver due to bowel gas. The liver is normal in size. The liver contour is normal. There is diffuse increased liver parenchymal echogenicity, consistent with hepatic steatosis. No focal hepatic lesion. There is no intrahepatic biliary duct dilatation seen. GALLBLADDER: Normal. The gallbladder is physiologically distended without evidence of stones, sludge, polyps, wall thickening or pericholecystic fluid. COMMON BILE DUCT: Normal in caliber measuring 0.3 cm in diameter. RIGHT KIDNEY: Normal. No hydronephrosis. No renal calculi or focal parenchymal lesions. The kidney measures 11.6 cm in maximum dimension. FREE FLUID: None. ADDITIONAL FINDINGS: Small right pleural effusion. US/US abdomen limited IMPRESSION: 1. Hepatic steatosis. 2. Small right pleural effusion.
== END 2023-06-19 14:49 | disposition home or self-care (01) ==
LOC: HO.US 14:48
PROVIDERS: PCP Registered Nurse; Visit Provider Internal Medicine Gastroenterology
DX: K74.60 Unspecified cirrhosis of liver (principal)
CPT/HCPCS: 76705

== ENCOUNTER 2023-07-06 15:45 | Outpatient (AMB) | payer MEDICARE, MEDICAID, SELFPAY ==
[2023-07-06 15:49] VITALS: BP 120/70; PULSE 86; O2SAT 95; BMI 28.6
--- NOTE | 2023-07-06 15:49 | A.OFFVIS_ITS ---
Intake Vital Signs 07/06/23 15:49 Height 5 ft 10 in Weight 199 lb 8.293 oz BMI 28.6 BP 120/70 Blood Pressure Location Lt brachial Position Sitting Pulse 86 Pulse Oximetry (%) 95 Oxygen Delivery Method Nasal Cannula Oxygen Flow Rate 2 Intake Visit Reasons: copd Intake Note: pt is here for follow up and states he is not feeling well, for the past week, he is dizzy, short of breath, started with sore throat and dry cough, but he just doesn't feel good,, he feels like he did when he had pneumonia, negative covid. past 3 days he has been taking 10mg of prednisone. 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 Allergies No Known Allergies [No Known Allergies*] Allergy (Verified 07/06/23 16:03) Medication List - Last Reconciled 07/06/23 by Chirag Cordova MD albuterol sulfate 90 mcg/actuation (ProAir HFA) 2 puffs inhalation Q6H PRN albuterol sulfate 2.5 mg (3 mL) inhalation Q4-6H PRN 30 days albuterol sulfate 90 mcg/actuation (Ventolin HFA) 2 puffs inhalation Q4-6H PRN 30 days atorvastatin 20 mg PO BEDTIME clonazepam 2 mg PO BID cyclobenzaprine 10 mg PO DAILY PRN dextroamphetamine-amphetamine 10 mg 1 tab PO DAILY ferrous sulfate 324 mg PO DAILY 90 days fluticasone propion-salmeterol 500-50 mcg/dose (Wixela Inhub) 1 inh inhalation BID gabapentin 1,200 mg PO BEDTIME gabapentin 600 mg PO BID gabapentin 600 mg PO BID ipratropium-albuterol 20-100 mcg/actuation (Combivent Respimat) inhalation lamotrigine 200 mg PO BID metoprolol tartrate 25 mg PO BID naloxone 4 mg/actuation (Narcan) 4 mg intranasal Q2M PRN omeprazole 40 mg PO TID 30 days paliperidone ER (Invega) 6 mg PO QAM paliperidone ER (Invega) 3 mg PO DAILY prednisone 5 mg PO DAILY prednisone 5 mg PO BID sildenafil (Viagra) 100 mg PO DAILY PRN tiotropium bromide 2.5 mcg/actuation (Spiriva Respimat) 2 puffs inhalation RDAILY Do you need a note to return to daycare/school/sports/work: No HPI copd HPI Details 63 years old gentleman with advanced chr onic obstructive pulmonary disease, chronic pulmonary densities, chronic as per. Very failure also has bipolar disorder and chronic back pain . He is on anti psychotic meds including lamotrigine 200 mg b.i.d. gabapentin is 600 mg b.i.d. and 1200 mg at bedtime, and also takes clonazepam 2 mg b.i.d.. For the past 1 week he is having upper respiratory symptoms with nasal congestion and cough, but no fever or chest pain. Because of his chronic bipolar disorder and anxiety he gets very, worried and anxious. He is already taking prednisone 5 mg 2 tablets a day. He is worried that he may be catching pneumonia. .COVID test is negative [facility] Medical History (Updated 07/06/23 @ 16:12 by Chirag Cordova MD) Bronchitis Bronchitis Closed head injury Soft tissue injury of right chest wall Hypoxia On beta mariano at home Anxiety Ascending aorta dilatation O2 dependent Personal history of nicotine dependence Pulmonary nodules Hypoxemia COPD (chronic obstructive pulmonary disease) Hiatal hernia without gangrene or obstruction GERD without esophagitis Mass of upper lobe of left lung History of drug abuse History of ETOH abuse Bipolar disorder Hyperlipidemia Hypertension Surgical History History of Achilles tendon repair History of endoscopy History of biopsy History of colonoscopy History of repair of hiatal hernia (~06/01/18) Family History Father History of heart attack Mother History of COPD Sister History of cancer Brother Hx of cancer of lung Social History Household Members: Significant Other Housing: House Do you presently have visiting nurse or other home services: No Alcohol intake: never Comment: refusing bed alarm Patient Tobacco Use Status: Former Tobacco user Quit Date: 6 years ago Tobacco use type: Cigarette Second Hand Smoke Exposure: No Advance Directives Date on File: 12/08/22 service: No Review of Systems Const All systems reviewed & are unremarkable except as noted in HPI and below Eyes Reports no additional complaints ENT Reports nasal congestion (Mild off and on) Card Denies chest pain, Denies irregular heart rhythm and Denies leg edema Resp Reports as per HPI GI Reports no additional complaints Reports no additional complaints Musc Reports no additional complaints Skin/Breast Reports system reviewed and no additional complaints, except as documented Neuro Reports no additional complaints Psych Reports anxiety and Reports other (Bipolar disorder, stable and controlled) Endo Reports no additional complaints Physical Exam Vital Signs: Last Vital Signs Pulse 86 07/06/23 15:49 BP 120/70 07/06/23 15:49 Pulse Ox 95 07/06/23 15:49 Oxygen Delivery Method Nasal Cannula 07/06/23 15:49 Oxygen Flow Rate 2 07/06/23 15:49 BMI result Body Mass Index 28.6 Const General: comfortable (But anxious), no acute distress, alert and awake Orientation/consciousness: patient oriented x3 HEENT Head: Yes normal to inspection General nose exam: No nasal polyps present and No nasal discharge present Face and sinus: Yes sinuses nontender Mouth: oropharynx normal Throat: Yes posterior oropharynx normal Eyes General: appearance normal, both eyes and all related structures Neck Neck: Yes normal visual inspection, Yes no lymphadenopathy, Yes trachea midline and Yes no JVD Thyroid: Thyroid normal Chest Chest palpation & inspection: normal inspection of the chest, normal palpation of entire chest wall and tenderness (Right mid chest is sensitive to touch) Resp Other: Percussion note resonant, breath sounds are very distant and quiet. He does not have any wheezes or crepitations on both side, today. Cardio Palpation: normal PMI Rate: regular rate Rhythm: regular rhythm Heart sounds: no gallops and no murmurs GI Palpation (GI): Soft to palpation, nontender, No hepatosplenomegaly present and no masses Auscultation: normal bowel sounds Back/Spine/Pelvis Thoracic/Lumbar Spine: thoracic and lumbar spine normal to inspection and thoraco-lumbar ROM limited Skin General skin exam: no rashes or lesions noted Neuro General: patient oriented x3 and no focal motor deficits Cranial nerves: Yes CN's II-XII intact bilaterally Extrem General: Yes normal to inspection, Yes no clubbing, cyanosis or edema and Yes no calf tenderness Psych Appearance: grossly normal and disheveled (Slightly) Mental Status: other ( ) Speech and movement: Normal speech and movement present Assessment & Plan Assessment & Plan (1) COPD (chronic obstructive pulmonary disease): Comment: Advanced COPD , but doing as good as expected. CT SCAN of the chest showed extensive degree of pulmonary emphysema and fibrosis on both sides, along with traction bronchiectasis, and mediastinal lymphadenopathy. Code(s): J44.9 - Chronic obstructive pulmonary disease, unspecified Plan: TX : Advair 500-50 one inh bid Spiriva Handihalor 1 inhalation daily Duo Neb UdS q 6 hrs W/A . Prednisone , 5 MG PO DAILY , and OK for him to take extra dose every 2 or 3 days . ( At patient's insistence, he is continued on a low-dose of prednisone daily.) ProAir 2 puffs Q 4-6 hours p.r.n. only as emergency rescue inhaler/ OR COMBIVENT RESPIMAT 1 INHALATION Q 6 HOURS P.R.N.. (2) O2 dependent: Comment: (continuous, 2 L/min at rest and 3 L/min with exertion) Code(s): Z99.81 - Dependence on supplemental oxygen Plan: as above (3) Personal history of nicotine dependence: Comment: Longstanding history of smoking but quit 3 years ago Code(s): Z87.891 - Personal history of nicotine dependence Plan: Commended for not smoking (4) Pulmonary nodules: Comment: (waxing/waning nodules b/l - new 1.1cm KAE nodule on 07/27/20 CT) but subsequent CT scan showed resolution. Nodule , 7 x 10 mm nodule in right upper lobe, being monitored closely. Code(s): R91.8 - Other nonspecific abnormal finding of lung field Plan: Patient will continue to have yearly CT scan of the chest (5) Mass of upper lobe of left lung: Comment: (new 1.1cm KAE nodule on 08/05/[address]) which is being monitored. Patient is not a surgical risk. Code(s): R91.8 - Other nonspecific abnormal finding of lung field Plan: Continue monitoring with CT scan on a yearly basis (6) Bronchitis: Comment: Currently he has symptoms of bronchitis following an upper respiratory infection. .He is worried about possible pneumonia On examination I do not think he has pneumonia, but may have some residual bronchitis Code(s): J40 - Bronchitis, not specified as acute or chronic Plan: I will treat him empirically with a course of doxycycline 100 mg b.i.d. Medications: New doxycycline hyclate 100 mg PO BID 20 tabs 0RF bronchitis/copd 10 days Coding Level of Care Code Est Pt Level 4 (47988) Diagnoses COPD (chronic obstructive pulmonary disease) J44.9 O2 dependent Z99.81 Personal history of nicotine dependence Z87.891 Pulmonary nodules R91.8 Mass of upper lobe of left lung R91.8 Bronchitis J40
== END 2023-07-06 16:05 | disposition home or self-care (01) ==
PROVIDERS: PCP Registered Nurse; Visit Provider Internal Medicine
DX: J44.9 Chronic obstructive pulmonary disease, unspecified (principal); Z99.81 Dependence on supplemental oxygen; Z87.891 Personal history of nicotine dependence; R91.8 Other nonspecific abnormal finding of lung field; J40 Bronchitis, not specified as acute or chronic
CPT/HCPCS: 99214

== ENCOUNTER → 2023-07-06 15:45 | Outpatient (BNVA) | payer MEDICARE, MEDICAID, SELFPAY | PROVIDERS: PCP Registered Nurse; Visit Provider Internal Medicine | DX: J44.9 Chronic obstructive pulmonary disease, unspecified (principal); J40 Bronchitis, not specified as acute or chronic; R91.8 Other nonspecific abnormal finding of lung field; Z99.81 Dependence on supplemental oxygen; Z87.891 Personal history of nicotine dependence | CPT/HCPCS: 99212 ==

== ENCOUNTER 2023-07-24 16:26 | Emergency (ER) | payer MEDICARE, MEDICAID, SELFPAY ==
--- NOTE | ~2023-07-24 | XR_ITS ---
EXAMINATION: XR CHEST CLINICAL INFORMATION: Shortness of breath COMPARISON: T chest March 08, 2023. Chest x-ray January 17, 2023 TECHNIQUE: 2 views of the chest were obtained. FINDINGS: Stable chronic changes. Marked emphysematous hyperlucency of lungs. Chronic confluent and streaky airspace opacities in the upper lobes unchanged since CT chest March 08, 2023. No pulmonary vascular congestion. No pleural effusion. No pneumothorax. Heart size is normal. Cardiac and mediastinal contours are normal. Multilevel degenerative spondylosis spine. XR/XR chest 2V IMPRESSION: No acute change of chest. Chronic bilateral upper lobe airspace opacities. Emphysematous hyperlucency of lungs.
[2023-07-24 17:03] VITALS: BP 166/73; PULSE 93; RESP 20; TEMP 36.6; O2SAT 88; BMI 27.3
--- NOTE | 2023-07-24 17:04 | ED.GENADULT ---
HPI - General Adult General Chief complaint: Dyspnea Stated complaint: sob, o2 sat 84%,sore throat Time Seen by Provider: 07/24/23 23:09 Source: patient Mode of arrival: ambulatory Limitations: no limitations History of Present Illness HPI narrative: Patient is 63 years old with history of advanced COPD with pulmonary fibrosis with bronchiectasis and lymphadenopathy oxygen dependent 3 L 24 hour been coughing for last 3- 4 days with mucopurulent phlegm no fever no chills no chest pain today felt very short of breath when he walked to the bathroom without oxygen pulse ox dropped to 79 usually patient can walk few steps without oxygen and oxygen stays more than 90 %. Currently patient is on 3 L of oxygen saturating 95% no chest pain no fever no chills no other family member sick Related Data Home Medications Medication Instructions Recorded Confirmed albuterol sulfate 90 mcg/actuation 2 puff inhalation Q6H PRN Wheezing 03/23/20 05/04/23 aerosol inhaler (ProAir HFA) naloxone 4 mg/actuation nasal 4 mg intranasal Q2M PRN Opioid 03/23/20 05/04/23 spray (Narcan) Overdose atorvastatin 20 mg tablet 20 mg PO BEDTIME 01/27/22 05/04/23 lamotrigine 200 mg tablet 200 mg PO BID 01/27/22 05/04/23 metoprolol tartrate 25 mg tablet 25 mg PO BID 01/27/22 05/04/23 paliperidone 3 mg tablet,extended 3 mg PO DAILY 01/27/22 05/04/23 release 24 hr (Invega) paliperidone 6 mg tablet,extended 6 mg PO QAM 01/27/22 05/04/23 release 24 hr (Invega) sildenafil 100 mg tablet (Viagra) 100 mg PO DAILY PRN Sexual Activity 01/27/22 05/04/23 cyclobenzaprine 10 mg tablet 10 mg PO DAILY PRN Muscle Spasm 06/09/22 05/04/23 gabapentin 600 mg tablet 1,200 mg PO BEDTIME 12/07/22 05/04/23 dextroamphetamine-amphetamine 10 1 tab PO DAILY 03/09/23 05/04/23 mg tablet ipratropium 20 mcg-albuterol 100 inhalation 03/09/23 05/04/23 mcg/actuation mist for inhalation (Combivent Respimat) clonazepam 1 mg tablet 2 mg PO BID 05/02/23 05/04/23 gabapentin 600 mg tablet 600 mg PO BID 05/02/23 05/04/23 gabapentin 600 mg tablet 600 mg PO BID 05/02/23 05/04/23 prednisone 5 mg tablet 5 mg PO DAILY 05/02/23 05/04/23 Previous Rx's Medication Instructions Recorded fluticasone 500 mcg-salmeterol 50 1 inh inhalation BID #60 ea 06/17/20 mcg/dose blistr powdr for inhalation (Wixela Inhub) omeprazole 40 mg capsule,delayed 40 mg PO TID 30 days #90 caps 12/08/22 release tiotropium bromide 2.5 2 puff inhalation RDAILY #4 grams 12/12/22 mcg/actuation mist for inhalation (Spiriva Respimat) ferrous sulfate 324 mg (65 mg 324 mg PO DAILY 90 days #90 tabs 05/04/23 iron) tablet,delayed release albuterol sulfate 2.5 mg/3 mL 2.5 mg (3 mL) inhalation Q4-6H PRN 05/08/23 (0.083 %) solution for nebulization shortness of breath or wheezing 30 days #90 mL albuterol sulfate 90 mcg/actuation 2 puff inhalation Q4-6H PRN 05/11/23 aerosol inhaler (Ventolin HFA) shortness of breath or wheezing 30 days #8.5 grams prednisone 5 mg tablet 5 mg PO BID #60 tabs 05/31/23 doxycycline hyclate 100 mg tablet 100 mg PO BID bronchitis/copd 10 07/06/23 days #20 tabs benzonatate 200 mg capsule 200 mg PO TID PRN cough #30 caps 07/25/23 cefuroxime axetil 500 mg tablet 500 mg PO BID 10 days #20 tabs 07/25/23 doxycycline hyclate 100 mg tablet 100 mg PO BID #20 tabs 07/25/23 Allergies Allergy/AdvReac Type Severity Reaction Status Date / Time No Known Allergies Allergy Verified 07/06/23 16:03 [No Known Allergies*] [facility] Past Medical History Medical History (Updated 07/25/23 @ 01:47 by Daniel Nair MD) Bronchitis Bronchitis Closed head injury Soft tissue injury of right chest wall Hypoxia On beta mariano at home Anxiety Ascending aorta dilatation O2 dependent Personal history of nicotine dependence Pulmonary nodules Hypoxemia COPD (chronic obstructive pulmonary disease) Hiatal hernia without gangrene or obstruction GERD without esophagitis Mass of upper lobe of left lung History of drug abuse History of ETOH abuse Bipolar disorder Hyperlipidemia Hypertension Surgical History History of Achilles tendon repair History of endoscopy History of biopsy History of colonoscopy History of repair of hiatal hernia (~06/01/18) Family History Family History Father History of heart attack Mother History of COPD Sister History of cancer Brother Hx of cancer of lung Social History Social History Household Members: Significant Other Housing: House Do you presently have visiting nurse or other home services: No Alcohol intake: never Comment: refusing bed alarm Patient Tobacco Use Status: Former Tobacco user Quit Date: 6 years ago Tobacco use type: Cigarette Smoked in Last 30 Days: No Second Hand Smoke Exposure: No Use of substances other than those prescribed or required for medical reasons: No Advance Directives: Yes Advance Directives on File: Yes Advance Directives Date on File: 12/08/22 service: No Physical Exam ED Vital Signs: Vital Signs - 24 hr 07/24/23 17:03 07/24/23 22:52 07/24/23 22:58 Temperature 98 F 98.4 F Pulse Rate 93 85 Pulse Rate [Monitor] Respiratory Rate 20 16 Blood Pressure 166/73 H 121/70 Pulse Oximetry 88 L 96 96 Oxygen Delivery Method Nasal Cannula Nasal Cannula Room Air Oxygen Flow Rate 2 3 07/24/23 23:18 07/24/23 23:34 07/24/23 23:49 Temperature 98.1 F Pulse Rate 89 101 H Pulse Rate [Monitor] 92 Respiratory Rate 25 H 16 20 Blood Pressure 125/74 Pulse Oximetry 96 Oxygen Delivery Method Nasal Cannula Oxygen Flow Rate 3 07/25/23 01:31 Temperature 98.4 F Pulse Rate 106 H Pulse Rate [Monitor] Respiratory Rate 20 Blood Pressure 125/56 L Pulse Oximetry 95 Oxygen Delivery Method Nasal Cannula Oxygen Flow Rate 3 BMI result Body Mass Index 27.3 Appearance: Alert. Oriented X3. No acute distress. Eyes: No pallor or icterus ENT: Pharynx normal. Oral Mucosa moist Neck: Normal inspection. Neck supple. CVS: Normal heart rate and rhythm. Pulses normal. Respiratory: No respiratory distress. Equal air entry bilateral, decreased air entry bilateral with prolonged expiration occasional crackles Abdomen: Soft and nontender. Bowel sounds are present, Skin: Skin warm and dry. Normal skin color. Normal skin turgor. Extremities: No lower extremity edema. No calf tenderness Neuro: Oriented X 3. No motor deficit. Course Course Course Narrative: RME:?63 yo male w/ COPD 3L O2 dependent at home hx of here for eval of sore throat, productive cough, and shortness of breath. cough worse at night, unable to lie flat. denies fever, chest pain, palpitations. denies known sick contacts. O2 in triage 87% which is baseline for him. lungs cta, speaking in full sentnces. labs, viral serology, CXR Full HPI, ROS and PE to be performed by the primary ED provider. Medications Administered Discontinued Medications Generic Name Dose Route Start Last Admin Trade Name Freq PRN Reason Stop Dose Admin Cefuroxime Axetil 500 mg 07/24/23 23:20 07/25/23 00:30 Cefuroxime Axetil 500 Mg Tablet PO 07/24/23 23:21 500 mg ONCE ONE Administration Albuterol Sulfate 5 mg/ 0 mg 07/24/23 23:29 07/24/23 23:33 Albuterol/Ipratropium 3 ml INHALE 07/24/23 23:30 2.5 each ONCE ONE Administration Dexamethasone 10 mg 07/24/23 23:20 07/25/23 00:30 Dexamethasone 2 Mg Tablet PO 07/24/23 23:21 10 mg ONCE ONE Administration Doxycycline Monohydrate 100 mg 07/24/23 23:20 07/25/23 00:30 Doxycycline Monohydrate 100 Mg Capsule PO 07/24/23 23:21 100 mg ONCE ONE Administration Guaifenesin/Codeine Phosphate 10 ml 07/24/23 23:22 07/25/23 00:31 Guaifen/Codeine Sf 200/20/10ml 10 Ml Liquid PO 07/24/23 23:23 10 ml ONCE ONE Administration Medical Decision Making Medical Decision Making MDM Narrative: Patient with chronic lung disease COPD consult increased shortness of breath with more mucopurulent phlegm workup negative will discharge patient home on antibiotic and increase the dose of prednisone Differential Diagnosis Differential Diagnoses: The differential diagnosis associated with the presentation includes Admission/Observation Consideration of admission/observation: Escalation of care including admission/observation considered Lab Data MDM Lab Attestation statement: I reviewed the patient's lab results. 07/24/23 17:42 07/24/23 17:42 Labs: Lab Results 07/24/23 07/24/23 Range/Units 17:42 23:49 WBC 6.1 (4.8-10.8) X10*3/uL RBC 3.39 L (4.60-5.80) X10*6/uL Hgb 10.9 L (14.0-18.0) g/dl Hct 33.7 L (42.0-52.0) % MCV 99.4 H (80.0-98.0) fL MCH 32.2 (27.0-33.0) pg MCHC 32.3 (31.0-36.0) g/dl RDW 17.2 H (11.0-16.0) % Plt Count 88 L (160-400) X10*3/uL MPV 13.2 H (9.4-12.4) fL Immature Gran % (Auto) Cancelled Neut % (Auto) Cancelled Lymph % (Auto) Cancelled [place] % (Auto) Cancelled Eos % (Auto) Cancelled Baso % (Auto) Cancelled Lymph # (Auto) Cancelled [place] # (Auto) Cancelled Eos # (Auto) Cancelled Baso # (Auto) Cancelled Abs Immat Gran (auto) Cancelled Absolute Neuts (auto) Cancelled Absolute Nucleated RBC 0.000 (0.0-0.012) X10*3/uL Nucleated RBC % (auto) 0.0 (0.0-0.2) /100WBC Neutrophils % (Manual) 41 L (45-73) % Band Neutrophils % 5 (3-5) % Lymphocytes % (Manual) 7 L (20-40) % Atypical Lymphs % (Man) 1 (0-6) % Monocytes % (Manual) 46 H (2-11) % Abs Neuts (Manual) 2.8 (2.0-8.3) X10*3/uL Lymphocytes # (Manual) 0.4 L (1.2-4.9) X10*3/uL Atyp Lymphs # (Manual) 0.1 x10*3/uL Monocytes # (Manual) 2.8 H (0.1-1.2) X10*3/uL Platelet Estimate DECREASED (NORMAL) Plt Morphology Comment NORMAL RBC Morphology NORMAL Sodium 134 L (135-145) mmol/L Potassium 4.0 (3.3-5.1) mmol/L Chloride 104 (96-108) mmol/L Carbon Dioxide 21 L (22-29) mmol/L Anion Gap 13 (12-20) BUN 6 L (9-16) mg/dL Creatinine 0.82 (0.5-1.4) mg/dL Estim Creat Clear Calc 92.7 Estimated GFR > 60 Random Glucose 134 H (60-115) mg/dL Calcium 8.5 (8.4-10.2) mg/dL Magnesium 2.0 (1.6-2.6) mg/dL Total Bilirubin 1.1 H (0.0-1.0) mg/dL AST 10 (5-37) U/L ALT 11 (0-40) U/L Alkaline Phosphatase 75 (39-117) U/L B-Natriuretic Peptide 99 (<100) pg/mL Total Protein 7.0 (6.5-8.0) g/dL Albumin 3.6 (3.5-5.0) g/dL Influenza Type A (PCR) NEGATIVE (Negative) Influenza Type B (PCR) NEGATIVE (Negative) RSV RNA Qual (PCR) NEGATIVE (Negative) SARS-CoV-2 RNA (RT-PCR) NEGATIVE (Negative) S. pyogenes GrpA RANDALL Negative (Negative) Independent Interpretation I performed an independent interpretation of an: Plain X-Ray Radiology Impression Discussion of test interpretation with radiology: I have reviewed the radiologist's reading. Discharge Plan Discharge Clinical Impression: Acute bronchitis Patient Disposition: Home, Self-Care Instructions: Acute Bronchitis (ED) Additional Instructions: Continue nebulizer treatment and inhalers Increased the dose of prednisone to 40 mg daily for 5 days then resume back to 5 mg daily Antibiotic as prescribed Cough drops as prescribed Follow-up with your PCP/big data platform architect Prescriptions: New benzonatate 200 mg capsule 200 mg PO TID PRN (Reason: cough) Qty: 30 0RF cefuroxime axetil 500 mg tablet 500 mg PO BID 10 Days Qty: 20 0RF doxycycline hyclate 100 mg tablet 100 mg PO BID Qty: 20 0RF No Action fluticasone propion-salmeterol [Wixela Inhub] 500-50 mcg/dose blister with device 1 inh inhalation BID Qty: 60 3RF omeprazole 40 mg capsule,delayed release(DR/EC) 40 mg PO TID 30 Days Qty: 90 6RF albuterol sulfate 2.5 mg /3 mL (0.083 %) solution for nebulization 2.5 mg inhalation Q4-6H PRN (Reason: shortness of breath or wheezing) 30 Days Qty: 90 3RF albuterol sulfate [Ventolin HFA] 90 mcg/actuation HFA aerosol inhaler 2 puff inhalation Q4-6H PRN (Reason: shortness of breath or wheezing) 30 Days Qty: 8.5 5RF prednisone 5 mg tablet 5 mg PO BID Qty: 60 3RF gabapentin 600 mg tablet 1,200 mg PO BEDTIME Spiriva Respimat 2.5 mcg/actuation Mist 2 puff inhalation RDAILY Qty: 4 1RF prednisone 5 mg tablet 5 mg PO DAILY Rx Instructions: 2 tabs in am prn for wheeze Narcan 4 mg/actuation spray,non-aerosol 4 mg intranasal Q2M PRN (Reason: Opioid Overdose) Rx Instructions: spray 1 dose into ONE nostril; alternate nostrils w each dose until help arrives albuterol sulfate [ProAir HFA] 90 mcg/actuation HFA aerosol inhaler 2 puff inhalation Q6H PRN (Reason: Wheezing) cyclobenzaprine 10 mg tablet 10 mg PO DAILY PRN (Reason: Muscle Spasm) clonazepam 1 mg tablet 2 mg PO BID metoprolol tartrate 25 mg tablet 25 mg PO BID paliperidone [Invega] 6 mg tablet extended release 24hr 6 mg PO QAM paliperidone [Invega] 3 mg tablet extended release 24hr 3 mg PO DAILY sildenafil [Viagra] 100 mg tablet 100 mg PO DAILY PRN (Reason: Sexual Activity) lamotrigine 200 mg tablet 200 mg PO BID atorvastatin 20 mg tablet 20 mg PO BEDTIME gabapentin 600 mg tablet 600 mg PO BID Combivent Respimat 20-100 mcg/actuation mist inhalation dextroamphetamine-amphetamine 10 mg tablet 1 tab PO DAILY gabapentin 600 mg tablet 600 mg PO BID doxycycline hyclate 100 mg tablet 100 mg PO BID 10 Days Qty: 20 0RF ferrous sulfate 324 mg (65 mg iron) tablet,delayed release (DR/EC) 324 mg PO DAILY 90 Days Qty: 90 1RF Interventions: ED Discharge Assessment Last Done: 07/25/23 01:55 Discharge Date/Time: 07/25/23 02:02
[2023-07-24 17:49] LABS: Hematocrit 33.7 % (42.0-52.0); Hemoglobin 10.9 g/dl (14.0-18.0); Mean Corpuscular HGB Conc 32.3 g/dl (31.0-36.0); Mean Corpuscular Hemoglobin 32.2 pg (27.0-33.0); Mean Corpuscular Volume 99.4 fL (80.0-98.0); Mean Platelet Volume 13.2 fL (9.4-12.4); Red Blood Count 3.39 X10*6/uL (4.60-5.80); Red Cell Distribution Width 17.2 % (11.0-16.0); White Blood Count 6.1 X10*3/uL (4.8-10.8)
[2023-07-24 17:52] LABS: Platelet Count 88 X10*3/uL (160-400)
[2023-07-24 18:07] LABS: Alanine Aminotransferase 11 U/L (0-40); Albumin Level 3.6 g/dL (3.5-5.0); Alkaline Phosphatase 75 U/L (39-117); Anion Gap 13 (12-20); Aspartate Amino Transferase 10 U/L (5-37); Bilirubin Total 1.1 mg/dL (0.0-1.0); Blood Urea Nitrogen 6 mg/dL (9-16); Calcium 8.5 mg/dL (8.4-10.2); Carbon Dioxide 21 mmol/L (22-29); Chloride 104 mmol/L (96-108); Creatinine Clr Calc Pharmacy 92.7; Estimated Glomerular Filt Rate > 60; Glucose Random 134 mg/dL (60-115); Sodium 134 mmol/L (135-145)
[2023-07-24 18:10] LABS: B Type Natriuretic Peptide 99 pg/mL (<100)
[2023-07-24 18:24] LABS: Influenza A PCR NEGATIVE (Negative); Influenza B PCR NEGATIVE (Negative); Resp Syncy Virus RNA Qual PCR NEGATIVE (Negative); SARS COV2 PCR INHOUSE NEGATIVE (Negative)
[2023-07-24 18:29] LABS: Atypical Lymph Absolute Manual 0.1 x10*3/uL; Atypical Lymphs Percent Manual 1 % (0-6); Band Neutrophils Percent 5 % (3-5); Lymphocytes Absolute Manual 0.4 X10*3/uL (1.2-4.9); Lymphocytes Percent Manual 7 % (20-40); Monocytes Absolute Manual 2.8 X10*3/uL (0.1-1.2); Monocytes Percent Manual 46 % (2-11); Neutrophils Absolute Manual 2.8 X10*3/uL (2.0-8.3); Neutrophils Percent Manual 41 % (45-73)
[2023-07-24 18:30] LABS: Platelet Estimate DECREASED (NORMAL); Platelet Morphology Comment NORMAL; RBC Morphology NORMAL
[2023-07-24 22:52] VITALS: O2SAT 96
[2023-07-24 22:58] VITALS: BP 121/70; PULSE 85; RESP 16; TEMP 36.9; O2SAT 96
--- NOTE | 2023-07-24 23:02 | MHC.EDTECH ---
This pct just assumed care of Patient ,vitals taken and Patient was hooked up to library monitor ,Patient comfortable watching Television .
[2023-07-24 23:18] VITALS: PULSE 92; RESP 25
--- NOTE | 2023-07-24 23:20 | PC.NURSE ---
Dr. wilson notified of wheezing. ed bronchodilator ordered.
[2023-07-24] MEDS: Albuterol Sulfate 5 MG, Albuterol/Iprat 2.5/0.5MG 3 ML 3 ML INHALE (23:33)
[2023-07-24 23:34] VITALS: PULSE 89; RESP 16; O2SAT 98
[2023-07-24 23:49] VITALS: BP 125/74; PULSE 101; RESP 20; TEMP 36.7; O2SAT 96
--- NOTE | 2023-07-24 23:51 | MHC.EDTECH ---
Strep swab collected and sent to lab .
[2023-07-25 00:09] LABS: IDNOW Serial# 08D9AD1C; Strep A Nucleic Acid Negative (Negative)
[2023-07-25] MEDS: cefuroxime axetiL 500 MG TABLET PO (00:30)
[2023-07-25] MEDS: dexAMETHasone 2 MG TABLET 10 MG PO (00:30)
[2023-07-25] MEDS: Doxycycline Monohydrate 100 MG CAPSULE PO (00:30)
[2023-07-25] MEDS: guaiFEN/Codeine SF 200/20/10ML 10 ML LIQUID PO (00:31)
[2023-07-25 01:31] VITALS: BP 125/56; PULSE 106; RESP 20; TEMP 36.9; O2SAT 95
== END 2023-07-25 02:02 | disposition home or self-care (01) ==
PROVIDERS: Physician Assistant Medical; Emergency Provider Internal Medicine; PCP Registered Nurse
DX: J44.0 Chronic obstructive pulmonary disease with (acute) lower respiratory infection (principal); J20.9 Acute bronchitis, unspecified; I10 Essential (primary) hypertension; Z99.81 Dependence on supplemental oxygen; Z11.52 Encounter for screening for COVID-19; Z20.828 Contact with and (suspected) exposure to other viral communicable diseases
CPT/HCPCS: 0241U; 71046; 80053; 83735; 83880; 85007; 85027; 87651; 94640; 99284; 99285; J8540

== ENCOUNTER 2023-08-14 09:07 | Day surgery (SDC) | payer MEDICARE, MEDICAID, SELFPAY ==
[2023-08-10 08:48] VITALS: BMI 27.7
[2023-08-14 10:11] VITALS: BP 108/45; PULSE 86; RESP 24; TEMP 37.2; O2SAT 95
[2023-08-14] MEDS: Tetracaine HCl/PF 0.5% Oph Sol 4 ML DROPS 1 DROP EYE-LEFT (10:16)
[2023-08-14] MEDS: Cyclopentolate 1 % Ophth Sol 2 ML DRPBTL 1 DROP EYE-LEFT ×3 (10:19→10:29)
[2023-08-14] MEDS: Tropicamide 1 % Ophth Sol 3 ML BTL 1 DROP EYE-LEFT ×3 (10:20→10:30)
[2023-08-14] MEDS: Ketorolac Tromethamine 0.5% Op 5 ML DROPS 1 DROP EYE-LEFT ×3 (10:21→10:31)
[2023-08-14] MEDS: Phenylephrine HCL 2.5% Oph SoL 2 ML BOTTLE 1 DROP EYE-LEFT ×3 (10:23→10:32)
[2023-08-14] MEDS: Lactated Ringers 500 ML 50 ML IV (10:24)
--- NOTE | 2023-08-14 10:29 | HO.ANESPROP2 ---
HPI - Anesthesia Eval Consult details Narrative: Left eye cataract + IOL PMFSH Active Problems Active Problems: All Active Problems (Updated 08/14/23 @ 10:04 by Paola Nova RN) Cirrhosis of liver without ascites (Acute) Physical deconditioning (Acute) Acute on chronic respiratory failure with hypoxemia (Acute) Esophageal stricture (Acute) Anemia (Acute) Bronchitis (Acute) COPD (chronic obstructive pulmonary disease) (Acute) Anxiety (Acute) O2 dependent (Acute) Personal history of nicotine dependence (Acute) Pulmonary nodules (Acute) Hypoxemia (Acute) Hiatal hernia without gangrene or obstruction (Acute) GERD without esophagitis (Acute) Mass of upper lobe of left lung (Acute) Past Medical History Medical History Emphysema lung Hx of hepatic disease Bronchitis Closed head injury Soft tissue injury of right chest wall Hypoxia On beta mariano at home Anxiety Bronchitis Ascending aorta dilatation O2 dependent Personal history of nicotine dependence Pulmonary nodules Hypoxemia COPD (chronic obstructive pulmonary disease) Hiatal hernia without gangrene or obstruction GERD without esophagitis Mass of upper lobe of left lung History of drug abuse History of ETOH abuse Bipolar disorder Hyperlipidemia Hypertension Family History Family History Father History of heart attack Mother History of COPD Sister History of cancer Brother Hx of cancer of lung Family history of problems with anesthesia: No Surgical History Surgical History History of Achilles tendon repair History of endoscopy History of biopsy History of colonoscopy History of repair of hiatal hernia (~06/01/18) History of Problems with Anesthesia: No Social History Social History Household Members: Significant Other Housing: House Do you presently have visiting nurse or other home services: No Alcohol intake: never Comment: refusing bed alarm Patient Tobacco Use Status: Former Tobacco user Quit Date: 6 years ago Tobacco use type: Cigarette Second Hand Smoke Exposure: No Advance Directives: No Advance Directives Information Provided: Yes Advance Directives on File: Yes Advance Directives Date on File: 12/08/22 service: No Meds Allergies Allergy/AdvReac Type Severity Reaction Status Date / Time No Known Allergies Allergy Verified 08/14/23 10:04 [No Known Allergies*] Active Medications: Current Medications Lactated Ringer's (Lr) 500 mls @ 50 mls/hr IV .Q10H MARTINA Stop: 08/14/23 18:59 Last Admin: 08/14/23 10:24 Dose: 50 mls/hr Povidone Iodine (Povidone Iodine 5 % Ophth Soln 30 Ml Bottle) 1 appl EYE-LEFT PREOP PRN PRN Reason: Pre-Op Surgical Implant Prophy Home Medications Medication Instructions Recorded Confirmed Last Taken Type naloxone 4 mg/actuation nasal 4 mg intranasal Q2M PRN Opioid 03/23/20 08/10/23 Unknown History spray (Narcan) Overdose atorvastatin 20 mg tablet 20 mg PO BEDTIME 01/27/22 08/10/23 Unknown History lamotrigine 200 mg tablet 200 mg PO BID 01/27/22 08/10/23 Unknown History metoprolol tartrate 25 mg tablet 25 mg PO BID 01/27/22 08/10/23 Unknown History paliperidone 3 mg tablet,extended 3 mg PO QNOON 01/27/22 08/10/23 Unknown History release 24 hr (Invega) paliperidone 6 mg tablet,extended 6 mg PO QAM 01/27/22 08/10/23 Unknown History release 24 hr (Invega) sildenafil 100 mg tablet (Viagra) 100 mg PO DAILY PRN Sexual Activity 01/27/22 08/10/23 Unknown History gabapentin 600 mg tablet 1,200 mg PO BEDTIME 12/07/22 08/10/23 Unknown History dextroamphetamine-amphetamine 10 1 tab PO DAILY 03/09/23 08/10/23 Unknown History mg tablet ipratropium 20 mcg-albuterol 100 1 puff inhalation QID PRN 03/09/23 08/10/23 Unknown History mcg/actuation mist for inhalation Shortness Of Breath Or Wheezing (Combivent Respimat) clonazepam 1 mg tablet 1 mg PO BID 05/02/23 08/10/23 Unknown History gabapentin 600 mg tablet 600 mg PO BID 05/02/23 08/10/23 Unknown History prednisone 5 mg tablet 5 mg PO DAILY 05/02/23 08/10/23 Unknown History ipratropium 0.5 mg-albuterol 3 mg 3 ml inhalation Q6-8H PRN wheezing 08/10/23 08/10/23 Unknown History (2.5 mg base)/3 mL nebulization soln omeprazole 40 mg capsule,delayed 40 mg PO BID 08/10/23 08/10/23 Unknown History release Exam Height,Weight and Vital Signs: Height 5 ft 10 in Weight 87.543 kg Last Vital Signs Temp 98.9 F 08/14/23 10:11 Pulse 86 08/14/23 10:11 Resp 24 H 08/14/23 10:11 BP 108/45 L 08/14/23 10:11 Pulse Ox 95 08/14/23 10:11 O2 Del Method Nasal Cannula 08/14/23 10:11 O2 Flow Rate 3 08/14/23 10:11 Airway Mallampati Class: II TM Dist: >3cm Neck ROM: Full Denture: Upper and Lower Loose/Missing/Broken Teeth: Yes Heart: [id number] Lungs: cta b/l Assessment and Plan Assessment Anesthesia Assessment: Anesthesia Plan Discussed and Chart Reviewed Final Anesthetic Review Family History of Problems with Anesthesia: No History of Problems with Anesthesia: No NPO: Yes ASA Class: IV Final Preanesthetic Review: No Changes in Pt Med Stat, Meds/Allgs Chart Reviewed, Consent Obtained/Reviewed and Anes Risks/Benef Reviewed Patient Risk: Intermediate Procedure Risk: Intermediate Assessment/Block/Sedation in SS: Assess/Block/Sedation-SS Anesthetic Plan Anesthetic Plan: MAC: Disposition: Standard PACU
--- NOTE | 2023-08-14 12:53 | MHC.SHP ---
Pre-Procedural Eval Section A - 24 Hr Update-Section A only Date of Service: 08/14/23 The patient is an INPATIENT: No Changes since office visit: No Cold of Flu in the past 2 weeks, No New Medical Problems, No Changes in Medication and No Patient answered all questions The patient has been examined within 24 hours of the surgical procedure. The History & Physical has been completed within 30 days and I have reviewed it.: Yes Section B - Complete if H&P > 30 days Chief Complaint: Age-related nuclear cataract, left eye Allergies: Allergies Allergy/AdvReac Type Severity Reaction Status Date / Time No Known Allergies Allergy Verified 08/14/23 10:04 [No Known Allergies*] Plan Diagnosis/Plan: Unchanged I have reviewed the history and physical and performed a pertinent physical examination on my patient. No changes have occurred unless specified. Time Spent With Patient Time: Total time managing care of this patient today ____ minutes.
--- NOTE | 2023-08-14 12:54 | HO.PNOPHT ---
Ophthalmology Procedure Procedure Date of Service: 08/14/23 Ophthalmology Viscoelastic: Healon Duet Dual Pack Pro Ophthalmology Lenses: Other (ma60 24.5) Procedure Notes: PREOPERATIVE DIAGNOSIS: Decreased visual acuity left eye secondary to cataract POSTOPERATIVE DIAGNOSIS: Same PROCEDURE: Left cataract extraction with intraocular lens insertion SURGEON: Ariel Torres M.D. ANESTHESIA: Topical/MAC ESTIMATED BLOOD LOSS: None COMPLICATIONS: None After obtaining informed consent, the patient was brought to the operation room suite and placed in the supine position. After adequate sedation per anesthesia, topical drops of Tetracaine were given to the left eye. The eye was then prepped and draped in the usual sterile fashion. The operating room microscope was then positioned over the operative eye and a lid speculum placed. A paracentesis was created. Viscoelastic was then instilled into the anterior chamber. A three plane incision was then created temporally, utilizing a 2.85 mm keratome. Capsulotomy forceps were then utilized to create a circular tear capsulotomy. Hydrodissection and hydrodelineation were carried out until adequate mobilization of the nucleus occurred. Phacoemulsification was then utilized to remove the dense central nucleus followed by removal of the cortical material utilizing the automated aspiration irrigation unit. Viscoat elastic was instilled into the posterior capsular bag followed by placement of a posterior chamber intraocular lens without difficulty. The residual Viscoat elastic was then removed utilizing the automated IA machine. The wound was check and found to be watertight. The patient tolerated the procedure well and the lid speculum was removed. Intracameral injection of Vigamox 0.1 mL followed by a subtenon injection of Kenalog-40 0.2 mL were administered. The patient will be seen in the a.m.
[2023-08-14 13:30] VITALS: BP 106/67; PULSE 89; RESP 18; TEMP 37.7; O2SAT 93
[2023-08-14 13:45] VITALS: BP 106/67; PULSE 89; RESP 18; TEMP 37.1; O2SAT 93
== END 2023-08-14 13:45 | disposition home or self-care (01) ==
PROVIDERS: PCP Registered Nurse; Visit Provider Ophthalmology
PROC: (CPT 66985; principal; 2023-08-14 10:50)
DX: H25.12 Age-related nuclear cataract, left eye (principal); H52.4 Presbyopia; H40.033 Anatomical narrow angle, bilateral; I10 Essential (primary) hypertension; J44.9 Chronic obstructive pulmonary disease, unspecified; J43.9 Emphysema, unspecified; Z79.51 Long term (current) use of inhaled steroids; Z79.52 Long term (current) use of systemic steroids; Z79.899 Other long term (current) drug therapy; Z87.891 Personal history of nicotine dependence; H18.413 Arcus senilis, bilateral
CPT/HCPCS: 66984; J2250; J3301; V2630

== ENCOUNTER 2023-08-31 15:48 | Outpatient (AMB) | payer MEDICARE, MEDICAID, SELFPAY ==
[2023-08-31 15:57] VITALS: BP 94/60; PULSE 86; O2SAT 96; BMI 28.0
--- NOTE | 2023-08-31 15:57 | A.OFFVIS_ITS ---
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 Allergies No Known Allergies [No Known Allergies*] Allergy (Verified 08/31/23 16:15) Medication List - Last Reconciled 08/31/23 by Chirag Cordova MD albuterol sulfate 90 mcg/actuation (Ventolin HFA) 2 puffs inhalation Q4-6H PRN 30 days atorvastatin 20 mg PO BEDTIME Breo Ellipta 200-25 mcg/dose (fluticasone furoate-vilanterol) 1 inh inhalation DAILY 30 days NS clonazepam 1 mg PO BID dextroamphetamine-amphetamine 10 mg 1 tab PO DAILY ferrous sulfate 324 mg PO DAILY 90 days fluticasone propion-salmeterol 500-50 mcg/dose (Wixela Inhub) 1 inh inhalation BID gabapentin 1,200 mg PO BEDTIME gabapentin 600 mg PO BID ipratropium-albuterol 0.5 mg-3 mg(2.5 mg base)/3 mL 3 mL inhalation Q6-8H PRN ipratropium-albuterol 20-100 mcg/actuation (Combivent Respimat) 1 puff inhalation QID PRN lamotrigine 200 mg PO BID metoprolol tartrate 25 mg PO BID naloxone 4 mg/actuation (Narcan) 4 mg intranasal Q2M PRN omeprazole 40 mg PO BID paliperidone ER (Invega) 6 mg PO QAM paliperidone ER (Invega) 3 mg PO QNOON prednisone 5 mg PO DAILY sildenafil (Viagra) 100 mg PO DAILY PRN tiotropium bromide 2.5 mcg/actuation (Spiriva Respimat) 2 puffs inhalation RDAILY Do you need a note to return to daycare/school/sports/work: No HPI copd HPI Details ANNETTA IS COMING AFTER ROOM MONTHS FOR FOLLOW-UP. IN THE LATER PART OF JUNE HE WAS SEEN IN THE EMERGENCY ROOM WITH AN OTHER ACUTE EXACERBATION OF COPD. TREATED WITH THE INCREASED PREDNISONE, HE COMES TODAY AND COMPLAINS OF INCREASED CHEST CONGESTION WITH COUGH AND SOMETIME LOT OF THE MUCUS. HIS OXYGEN LEVEL DROPS MORE QUICKLY WHEN HE WALKS AROUND. HE IS STAYING MOST OF THE TIME IN THE HOUSE, HE HAS HARD TIME IN AMBULATING. THERE HAS BEEN NO FEVER OR CHILLS. [facility] Medical History Emphysema lung Hx of hepatic disease Bronchitis Closed head injury Soft tissue injury of right chest wall Hypoxia On beta mariano at home Anxiety Bronchitis Ascending aorta dilatation O2 dependent Personal history of nicotine dependence Pulmonary nodules Hypoxemia COPD (chronic obstructive pulmonary disease) Hiatal hernia without gangrene or obstruction GERD without esophagitis Mass of upper lobe of left lung History of drug abuse History of ETOH abuse Bipolar disorder Hyperlipidemia Hypertension Surgical History History of Achilles tendon repair History of endoscopy History of biopsy History of colonoscopy History of repair of hiatal hernia (~06/01/18) Family History Father History of heart attack Mother History of COPD Sister History of cancer Brother Hx of cancer of lung Social History Household Members: Significant Other Housing: House Do you presently have visiting nurse or other home services: No Alcohol intake: never Comment: refusing bed alarm Patient Tobacco Use Status: Former Tobacco user Quit Date: 6 years ago Tobacco use type: Cigarette Second Hand Smoke Exposure: No Advance Directives Date on File: 12/08/22 service: No Review of Systems Const All systems reviewed & are unremarkable except as noted in HPI and below Eyes Reports no additional complaints ENT Reports nasal congestion (Mild off and on) Card Denies chest pain, Denies irregular heart rhythm and Denies leg edema Resp Reports as per HPI GI Reports no additional complaints Reports no additional complaints Musc Reports no additional complaints Skin/Breast Reports system reviewed and no additional complaints, except as documented Neuro Reports no additional complaints Psych Reports anxiety and Reports other (Bipolar disorder, stable and controlled) Endo Reports no additional complaints Physical Exam Vital Signs: Last Vital Signs BP 94/60 08/31/23 15:57 BMI result Body Mass Index 28.0 Const General: comfortable (But anxious), no acute distress, alert and awake Orientation/consciousness: patient oriented x3 HEENT Head: Yes normal to inspection General nose exam: No nasal polyps present and No nasal discharge present Face and sinus: Yes sinuses nontender Mouth: oropharynx normal Throat: Yes posterior oropharynx normal Eyes General: appearance normal, both eyes and all related structures Neck Neck: Yes normal visual inspection, Yes no lymphadenopathy, Yes trachea midline and Yes no JVD Thyroid: Thyroid normal Chest Chest palpation & inspection: normal inspection of the chest, normal palpation of entire chest wall and tenderness (Right mid chest is sensitive to touch) Resp Other: Percussion note resonant, breath sounds are very distant and quiet. HE HAS EXPIRATORY WHEEZES AND A FEW CREPITATIONS OVER BOTH BASILAR AREAS. Cardio Palpation: normal PMI Rate: regular rate Rhythm: regular rhythm Heart sounds: no gallops and no murmurs GI Palpation (GI): Soft to palpation, nontender, No hepatosplenomegaly present and no masses Auscultation: normal bowel sounds Back/Spine/Pelvis Thoracic/Lumbar Spine: thoracic and lumbar spine normal to inspection and thoraco-lumbar ROM limited Skin General skin exam: no rashes or lesions noted Neuro General: patient oriented x3 and no focal motor deficits Cranial nerves: Yes CN's II-XII intact bilaterally Extrem General: Yes normal to inspection, Yes no clubbing, cyanosis or edema and Yes no calf tenderness Psych Appearance: grossly normal and disheveled (Slightly) Mental Status: other ( ) Speech and movement: Normal speech and movement present Assessment & Plan Assessment & Plan (1) COPD (chronic obstructive pulmonary disease): Comment: Advanced COPD , but doing as good as expected. CT SCAN of the chest showed extensive degree of pulmonary emphysema and fibrosis on both sides, along with traction bronchiectasis, and mediastinal lymphadenopathy. Code(s): J44.9 - Chronic obstructive pulmonary disease, unspecified Plan: WIXELA 500-251 INHALATION B.I.D. IPRATROPIUM-ALBUTEROL UPDRAFTS Q 6 HOURS P.R.N. SPIRIVA RESPIMAT 2 INHALATIONS DAILY (2) Bronchitis: Comment: Currently he has symptoms of bronchitis following an upper respiratory infectio n. .He is worried about possible pneumonia On examination I do not think he has pneumonia, but may have some residual bronchitis Code(s): J40 - Bronchitis, not specified as acute or chronic Plan: PREDNISONE INCREASED TO 5 MG B.I.D. FOR A FEW WEEKS AND THEN HE WILL CUT DOWN TO ONCE A DAY (3) Mass of upper lobe of left lung: Comment: (new 1.1cm KAE nodule on 08/05/[address]) which is being monitored. Patient is not a surgical risk. States pcp told him the left one shrunk and new one on right to be scanned in few months(08/14/23) Code(s): R91.8 - Other nonspecific abnormal finding of lung field Plan: ABOVE (4) Anxiety: Comment: He is a known case of bipolar disorder and severe anxiety. Code(s): F41.9 - Anxiety disorder, unspecified Plan: Uses clonazepam 1 mg daily Needs lot of reassurance. I will see him again after 2 month. (5) Acute on chronic respiratory failure with hypoxemia: Comment: Patient has chronic respiratory failure with hypoxemia and has been treated with O2 supplementation, He gets acute exacerbation of his respiratory failure due to chest infections, Currently seems to be at his baseline. Advised to keep on using O2 2 L/minute when at rest and 3 L/minute when walking around. Code(s): J96.21 - Acute and chronic respiratory failure with hypoxia Plan: ABOVE Medications: Changed From prednisone 2 tabs in am prn for wheeze 5 mg PO DAILY To prednisone 2 tabs in am prn for wheeze 10 mg PO DAILY From clonazepam 1 mg PO BID To clonazepam 1 mg PO BID 30 days 60 tabs 2RF ANXIETY Coding Level of Care Code Est Pt Level 3 (12612) Diagnoses COPD (chronic obstructive pulmonary disease) J44.9 Bronchitis J40 Mass of upper lobe of left lung R91.8 Anxiety F41.9 Acute on chronic respiratory failure with hypoxemia J96.21
== END 2023-08-31 16:17 | disposition home or self-care (01) ==
PROVIDERS: PCP Registered Nurse; Visit Provider Internal Medicine
DX: J44.9 Chronic obstructive pulmonary disease, unspecified (principal); J40 Bronchitis, not specified as acute or chronic; R91.8 Other nonspecific abnormal finding of lung field; F41.9 Anxiety disorder, unspecified; J96.21 Acute and chronic respiratory failure with hypoxia
CPT/HCPCS: 99213

== ENCOUNTER → 2023-08-31 15:48 | Outpatient (BNVA) | payer MEDICARE, MEDICAID, SELFPAY | PROVIDERS: PCP Registered Nurse; Visit Provider Internal Medicine | DX: J96.21 Acute and chronic respiratory failure with hypoxia (principal); J44.9 Chronic obstructive pulmonary disease, unspecified; J40 Bronchitis, not specified as acute or chronic; J43.9 Emphysema, unspecified; R91.8 Other nonspecific abnormal finding of lung field; F41.9 Anxiety disorder, unspecified; Z87.891 Personal history of nicotine dependence | CPT/HCPCS: 99212 ==

== ENCOUNTER 2023-09-04 08:23 | Day surgery (SDC) | payer MEDICARE, MEDICAID, SELFPAY ==
[2023-08-10 09:01] VITALS: BMI 27.7
--- NOTE | 2023-08-31 13:59 | HO.ANESPROP2 ---
Documented by User: Latisha Red NP 08/31/23 14:00 HPI - Anesthesia Eval Consult details Narrative: 63yo M for Right Cataract Extraction IOL Insertion Optimized per PCP Left eye 08/14/23: Midaz 1 O2 dependant PMFSH Active Problems Active Problems: All Active Problems Cirrhosis of liver without ascites (Acute) Physical deconditioning (Acute) Acute on chronic respiratory failure with hypoxemia (Acute) Esophageal stricture (Acute) Anemia (Acute) Bronchitis (Acute) COPD (chronic obstructive pulmonary disease) (Acute) Anxiety (Acute) O2 dependent (Acute) Personal history of nicotine dependence (Acute) Pulmonary nodules (Acute) Hypoxemia (Acute) Hiatal hernia without gangrene or obstruction (Acute) GERD without esophagitis (Acute) Mass of upper lobe of left lung (Acute) Past Medical History Medical History Emphysema lung Hx of hepatic disease Bronchitis Closed head injury Soft tissue injury of right chest wall Hypoxia On beta mariano at home Anxiety Bronchitis Ascending aorta dilatation O2 dependent Personal history of nicotine dependence Pulmonary nodules Hypoxemia COPD (chronic obstructive pulmonary disease) Hiatal hernia without gangrene or obstruction GERD without esophagitis Mass of upper lobe of left lung History of drug abuse History of ETOH abuse Bipolar disorder Hyperlipidemia Hypertension Family History Family History Father History of heart attack Mother History of COPD Sister History of cancer Brother Hx of cancer of lung Family history of problems with anesthesia: No Surgical History Surgical History History of Achilles tendon repair History of endoscopy History of biopsy History of colonoscopy History of repair of hiatal hernia (~06/01/18) History of Problems with Anesthesia: No Social History Social History Household Members: Significant Other Housing: House Do you presently have visiting nurse or other home services: No Alcohol intake: never Comment: refusing bed alarm Patient Tobacco Use Status: Former Tobacco user Quit Date: 6 years ago Tobacco use type: Cigarette Second Hand Smoke Exposure: No Advance Directives: No Advance Directives Information Provided: Yes Advance Directives on File: Yes Advance Directives Date on File: 12/08/22 service: No Meds Allergies Allergy/AdvReac Type Severity Reaction Status Date / Time No Known Allergies Allergy Verified 08/31/23 16:15 [No Known Allergies*] Home Medications ?Medication ?Instructions ?Recorded ?Confirmed ?Last Taken ?Type naloxone 4 mg/actuation nasal 4 mg intranasal Q2M PRN Opioid 03/23/20 08/10/23 Unknown History spray (Narcan) Overdose atorvastatin 20 mg tablet 20 mg PO BEDTIME 01/27/22 08/10/23 Unknown History lamotrigine 200 mg tablet 200 mg PO BID 01/27/22 08/10/23 Unknown History metoprolol tartrate 25 mg tablet 25 mg PO BID 01/27/22 08/10/23 Unknown History paliperidone 3 mg tablet,extended 3 mg PO QNOON 01/27/22 08/10/23 Unknown History release 24 hr (Invega) paliperidone 6 mg tablet,extended 6 mg PO QAM 01/27/22 08/10/23 Unknown History release 24 hr (Invega) sildenafil 100 mg tablet (Viagra) 100 mg PO DAILY PRN Sexual Activity 01/27/22 08/10/23 Unknown History gabapentin 600 mg tablet 1,200 mg PO BEDTIME 12/07/22 08/10/23 Unknown History dextroamphetamine-amphetamine 10 1 tab PO DAILY 03/09/23 08/10/23 Unknown History mg tablet ipratropium 20 mcg-albuterol 100 1 puff inhalation QID PRN 03/09/23 08/10/23 Unknown History mcg/actuation mist for inhalation Shortness Of Breath Or Wheezing (Combivent Respimat) gabapentin 600 mg tablet 600 mg PO BID 05/02/23 08/10/23 Unknown History ipratropium 0.5 mg-albuterol 3 mg 3 ml inhalation Q6-8H PRN wheezing 08/10/23 08/10/23 Unknown History (2.5 mg base)/3 mL nebulization soln omeprazole 40 mg capsule,delayed 40 mg PO BID 08/10/23 08/10/23 Unknown History release prednisone 5 mg tablet 10 mg PO DAILY 08/31/23 08/31/23 Unknown History Exam Height,Weight and Vital Signs: Height 5 ft 10 in Weight 87.543 kg Assessment and Plan Assessment Anesthesia Assessment: Chart Reviewed Final Anesthetic Review Family History of Problems with Anesthesia: No History of Problems with Anesthesia: No Documented by User: Chantal Tellez MD 09/04/23 09:59 PMFSH Past Medical History Medical History Emphysema lung Hx of hepatic disease Bronchitis Closed head injury Soft tissue injury of right chest wall Hypoxia On beta mariano at home Anxiety Bronchitis Ascending aorta dilatation O2 dependent Personal history of nicotine dependence Pulmonary nodules Hypoxemia COPD (chronic obstructive pulmonary disease) Hiatal hernia without gangrene or obstruction GERD without esophagitis Mass of upper lobe of left lung History of drug abuse History of ETOH abuse Bipolar disorder Hyperlipidemia Hypertension Family History Family History Father History of heart attack Mother History of COPD Sister History of cancer Brother Hx of cancer of lung Surgical History Surgical History History of Achilles tendon repair History of endoscopy History of biopsy History of colonoscopy History of repair of hiatal hernia (~06/01/18) Social History Social History Household Members: Significant Other Housing: House Do you presently have visiting nurse or other home services: No Alcohol intake: never Comment: refusing bed alarm Patient Tobacco Use Status: Former Tobacco user Quit Date: 6 years ago Tobacco use type: Cigarette Second Hand Smoke Exposure: No Advance Directives: No Advance Directives Information Provided: Yes Advance Directives on File: Yes Advance Directives Date on File: 12/08/22 service: No Meds Allergies Allergy/AdvReac Type Severity Reaction Status Date / Time No Known Allergies Allergy Verified 08/31/23 16:15 [No Known Allergies*] Home Medications ?Medication ?Instructions ?Recorded ?Confirmed ?Last Taken ?Type naloxone 4 mg/actuation nasal 4 mg intranasal Q2M PRN Opioid 03/23/20 08/10/23 Unknown History spray (Narcan) Overdose atorvastatin 20 mg tablet 20 mg PO BEDTIME 01/27/22 08/10/23 Unknown History lamotrigine 200 mg tablet 200 mg PO BID 01/27/22 08/10/23 Unknown History metoprolol tartrate 25 mg tablet 25 mg PO BID 01/27/22 08/10/23 Unknown History paliperidone 3 mg tablet,extended 3 mg PO QNOON 01/27/22 08/10/23 Unknown History release 24 hr (Invega) paliperidone 6 mg tablet,extended 6 mg PO QAM 01/27/22 08/10/23 Unknown History release 24 hr (Invega) sildenafil 100 mg tablet (Viagra) 100 mg PO DAILY PRN Sexual Activity 01/27/22 08/10/23 Unknown History gabapentin 600 mg tablet 1,200 mg PO BEDTIME 12/07/22 08/10/23 Unknown History dextroamphetamine-amphetamine 10 1 tab PO DAILY 03/09/23 08/10/23 Unknown History mg tablet ipratropium 20 mcg-albuterol 100 1 puff inhalation QID PRN 03/09/23 08/10/23 Unknown History mcg/actuation mist for inhalation Shortness Of Breath Or Wheezing (Combivent Respimat) gabapentin 600 mg tablet 600 mg PO BID 05/02/23 08/10/23 Unknown History ipratropium 0.5 mg-albuterol 3 mg 3 ml inhalation Q6-8H PRN wheezing 08/10/23 08/10/23 Unknown History (2.5 mg base)/3 mL nebulization soln omeprazole 40 mg capsule,delayed 40 mg PO BID 08/10/23 08/10/23 Unknown History release prednisone 5 mg tablet 10 mg PO DAILY 08/31/23 08/31/23 Unknown History Exam Airway Mallampati Class: II TM Dist: >3cm Neck ROM: Full Heart: rrr Lungs: cta Assessment and Plan Assessment Anesthesia Assessment: Anesthesia Plan Discussed Final Anesthetic Review NPO: Yes ASA Class: III Final Preanesthetic Review: No Changes in Pt Med Stat, Meds/Allgs Chart Reviewed and Consent Obtained/Reviewed Patient Risk: Intermediate Procedure Risk: Low Anesthetic Plan Anesthetic Plan: MAC: Disposition: Standard PACU
[2023-09-04] MEDS: Tetracaine HCl/PF 0.5% Oph Sol 4 ML DROPS 1 DROP EYE-RIGHT (10:34)
[2023-09-04] MEDS: Cyclopentolate 1 % Ophth Sol 2 ML DRPBTL 1 DROP EYE-RIGHT ×3 (10:35→11:02)
[2023-09-04] MEDS: Tropicamide 1 % Ophth Sol 3 ML BTL 1 DROP EYE-RIGHT ×3 (10:38→11:05)
[2023-09-04] MEDS: Lactated Ringers 500 ML 50 ML IV (10:39)
[2023-09-04] MEDS: Ketorolac Tromethamine 0.5% Op 5 ML DROPS 1 DROP EYE-RIGHT ×3 (10:41→11:08)
[2023-09-04] MEDS: Phenylephrine HCL 2.5% Oph SoL 2 ML BOTTLE 1 DROP EYE-RIGHT ×3 (10:44→10:59)
[2023-09-04 10:57] VITALS: BP 115/74; PULSE 85; RESP 16; TEMP 36.1; O2SAT 98; BMI 27.5
[2023-09-04] MEDS: Albuterol Sulfate (0.083%) 2.5 MG/3 ML VIAL.NEB INHALE (11:02)
[2023-09-04 11:04] VITALS: PULSE 91; RESP 17; O2SAT 99
--- NOTE | 2023-09-04 12:27 | P.PCNO_ITS ---
Ophthalmology Procedure Procedure Date of Service: 09/04/23 Ophthalmology Viscoelastic: Healon Duet Dual Pack Pro Ophthalmology Lenses: IOL Acrysof MP - [id number] (25) Procedure Notes: PREOPERATIVE DIAGNOSIS: Decreased visual acuity right eye secondary to cataract POSTOPERATIVE DIAGNOSIS: Same PROCEDURE: Right cataract extraction with intraocular lens insertion SURGEON: Ariel Torres M.D. ANESTHESIA: Topical/MAC ESTIMATED BLOOD LOSS: None COMPLICATIONS: None After obtaining informed consent, the patient was brought to the operating room suite and placed in the supine position. After adequate sedation per anesthesia, topical drops of Tetracaine were given to the right eye. The eye was then prepped and draped in the usual sterile fashion. The operating room microscope was then positioned over the operative eye and a lid speculum placed. A paracentesis was created. Viscoelastic was then instilled into the anterior chamber. A three plane incision was then created temporally, utilizing a 2.85 mm keratome. Capsulotomy forceps were then utilized to create a circular tear capsulotomy. Hydrodissection and hydrodelineation were carried out until adequate mobilization of the nucleus occurred. Phacoemulsification was then utilized to remove the dense central nucl eus followed by removal of the cortical material utilizing the automated aspiration irrigation unit. Viscoelastic was instilled into the posterior capsular bag followed by placement of a posterior chamber intraocular lens without difficulty. The residual Viscoelastic was then removed utilizing the automated IA machine. The wound was checked and found to be watertight. The patient tolerated the procedure well and the lid speculum was removed. Intracameral injection of Vigamox 0.1 mL followed by a subtenon injection of Kenalog-40 0.2 mL were administered. The patient will be seen in the a.m.
--- NOTE | 2023-09-04 12:27 | MHC.SHP ---
Pre-Procedural Eval Section A - 24 Hr Update-Section A only Date of Service: 09/04/23 The patient is an INPATIENT: No Changes since office visit: No Cold of Flu in the past 2 weeks, No New Medical Problems, No Changes in Medication and No Patient answered all questions The patient has been examined within 24 hours of the surgical procedure. The History & Physical has been completed within 30 days and I have reviewed it.: Yes Section B - Complete if H&P > 30 days Chief Complaint: Age-related nuclear cataract, right eye Allergies: Allergies Allergy/AdvReac Type Severity Reaction Status Date / Time No Known Allergies Allergy Verified 09/04/23 10:54 [No Known Allergies*] Plan Diagnosis/Plan: Unchanged I have reviewed the history and physical and performed a pertinent physical examination on my patient. No changes have occurred unless specified. Time Spent With Patient Time: Total time managing care of this patient today ____ minutes.
[2023-09-04 13:11] VITALS: BP 101/70; PULSE 99; RESP 18; TEMP 36.7; O2SAT 94
== END 2023-09-04 13:14 | disposition home or self-care (01) ==
PROVIDERS: PCP Registered Nurse; Visit Provider Ophthalmology
PROC: (CPT 66985; principal; 2023-09-04 13:30)
DX: H25.11 Age-related nuclear cataract, right eye (principal); H52.4 Presbyopia; H40.033 Anatomical narrow angle, bilateral; H18.413 Arcus senilis, bilateral; I10 Essential (primary) hypertension; J44.9 Chronic obstructive pulmonary disease, unspecified; K21.9 Gastro-esophageal reflux disease without esophagitis; J43.9 Emphysema, unspecified; F31.9 Bipolar disorder, unspecified; Z79.51 Long term (current) use of inhaled steroids; Z79.52 Long term (current) use of systemic steroids; Z79.899 Other long term (current) drug therapy; Z87.891 Personal history of nicotine dependence
CPT/HCPCS: 66984; 94640; J2250; J3010; J3301; V2630

== ENCOUNTER 2023-09-14 13:30 | Outpatient (AMB) | payer MEDICARE, MEDICAID, SELFPAY ==
--- NOTE | 2023-09-14 13:42 | A.OFFVIS_ITS ---
Vital Signs 09/14/23 13:44 Height 5 ft 10 in Weight 189 lb BMI 27.1 BP 99/58 L Blood Pressure Location Lt brachial Position Sitting Intake Visit Reasons: 4month follow up Intake Note: Patient follow up for nemia and US results. Patient cc: acid reflex and denies any GI issues. Director Of Professional Services Required: No Accompanied by: Self / Same As Patient Allergies No Known Allergies [No Known Allergies*] Allergy (Verified 09/14/23 13:42) Medication List - Last Reconciled 09/14/23 by Melissa Handy MD albuterol sulfate 90 mcg/actuation (Ventolin HFA) 2 puffs inhalation Q4-6H PRN 30 days atorvastatin 20 mg PO BEDTIME Breo Ellipta 200-25 mcg/dose (fluticasone furoate-vilanterol) 1 inh inhalation DAILY 30 days NS clonazepam 1 mg PO BID 30 days dextroamphetamine-amphetamine 10 mg 1 tab PO DAILY ferrous sulfate 324 mg PO DAILY 90 days fluticasone propion-salmeterol 500-50 mcg/dose (Wixela Inhub) 1 inh inhalation BID gabapentin 1,200 mg PO BEDTIME gabapentin 600 mg PO BID ipratropium-albuterol 0.5 mg-3 mg(2.5 mg base)/3 mL 3 mL inhalation Q6-8H PRN ipratropium-albuterol 20-100 mcg/actuation (Combivent Respimat) 1 puff inhalation QID PRN lamotrigine 200 mg PO BID metoprolol tartrate 25 mg PO BID naloxone 4 mg/actuation (Narcan) 4 mg intranasal Q2M PRN omeprazole 40 mg PO BID paliperidone ER (Invega) 6 mg PO QAM paliperidone ER (Invega) 3 mg PO QNOON prednisone 10 mg PO DAILY sildenafil (Viagra) 100 mg PO DAILY PRN tiotropium bromide 2.5 mcg/actuation (Spiriva Respimat) 2 puffs inhalation RDAILY HPI HPI 4month follow up: Details: GI CLINIC VISIT FOR THIS 63-YEAR-OLD MALE FOR FOLLOW-UP OF GERD AND DYSPHAGIA. 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 Lab studies revealed anemia and elevated liver enzymes- further workup needed for evaluation, obtaining FIT, labs to evaluate anemia and repeat LFTS including an US w elastography ? Patient has severe COPD- Request clearance from Pulm to determine risk vs benefit fro EGD. ? He also has multiple pulmonary nodules that do have an inflammatory type of appearance and behavior over serial CT scans. However to r/o an occult malignancy he will have a navigational bronchoscopy with biopsy of new and increasing pulmonary nodules in the left upper lobe by Dr. Nieves. ? LAB[facility]: 04/15/19 H & H of 11 & 32.9, INR 1.2, ? Iron studies were suggestive of iron deficiency anemia ? Normal LFTs except to total bilirubin of 1.2. ? Serologies for celiac sprue were negative. ?IMAGING STUDIES: May, 2023 ABD US SHOWED: 1. Hepatic steatosis. 2. Small right pleural effusion. 01/25/23 ABD US SHOWED: 1. Changes of hepatic steatosis. Nonspecific moderate splenomegaly. 2. Liver elastography: Although measurements are suggestive of compensated advanced chronic liver disease, there is statistical variability of the sampling which decreases accuracy. 06/17 BARIUM SWALLOW SHOWED:? Laryngeal penetration with swallowing. No marco a aspiration seen. Small hiatal and paraesophageal hernias. Mild mucosal irregularity and narrowing of the distal thoracic esophagus concerning for a stricture. correlation with endoscopy recommended. Significant gastroesophageal reflux. ? 05/16 ABDOMINAL ULTRASOUND WITH ELASTOGRAPHY SHOWED: ? 1. Mildly echogenic liver suggesting hepatic steatosis. ? 2. Elastography: 1.51, this is compatible with mild to moderate fibrosis. ?ENDOSCOPIC STUDIES:11/11/22 EGD SHOWED: LARYNX: Scarring with thickening of vocal cords with healed ulcer seen on past EGD ESOPHAGUS: Focal ulceration at 34 to 36 cms with luminal narrowing - biopsies obtained.? Hiatal hernia 36 to 40 cms.? Balloon dilation was performed with 13.5 and 15 mm CRE balloon for 60 sec at each level. Triamcinolone 40 mg was injected into the stricture - 10 ml in each quadrant Plan: Repeat EGD with esophageal balloon dilation in 6 to 8 weeks Esophagus, stricture, biopsy: - Cardiac-type mucosa with moderate chronic active inflammation; no intestinal metaplasia seen. - No squamous epithelium seen. 01/2021 EGD SHOWED: LARYNX: scarring with thickening of vocal cords with healed ulcer seen on past EGD ESOPHAGUS: Focal ulceration at 34 to 36 cms with luminal narrowing - multiple biopsies were obtained and stricture dilated to 15 mm (45 F) with a CRE balloon.?Hiatal hernia 36 to 40 cms.?STOMACH: Mild gastric erythema. Biopsies were obtained. Grade 3 flap valve and slipped fundal wrap on retroflexed examination of the cardia. Plan:? Repeat EGD in 4 to 6 weeks for repeat dilation. 10/29/19 EGD SHOWED:? Larynx: Some scarring of vocal cords with healed ulcer seen on past EGD? Esophagus: Ulcerated mucosa from 34 to 36 cms with luminal narrowing - multiple biopsies were obtained. Hiatal hernia 36 to 40 cms. ? Stomach: Mild gastric erythema. Biopsies obtained on past EGD were negative for HP. ? Grade 3 flap valve and slipped fundal wrap seen on retroflexed examination of the cardia. ? Esophagus, stricture, biopsy: ? 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 ? - No dysplasia seen. ? - No fungi or viral changes seen. ? EGD 04/14 Dr. Mccloud- Benign 15mm ulceration of LES, moderate erosive esophagitis, short-segment Max's. ? Colonoscopy 04/15 normal ? TODAY'S VISIT Patient cc: acid reflex and denies any GI issues Lab and US results reviewed. Intermittent dysphagia. Had chicken pot pie yesterday and a potato got stuck and he had to regurgitate it. Advised to eat mashed potatoes/blendarized diet. Denies dysphagia today PAST VISITS: Continues to have GERD and dysphagia Eats potatoes, peas, bananas, jello and maintaining his weight. Usually blenderizes the meat. Heartburn is a little better. Complains of RUQ pain radiating laterally to the back Labs and US results reviewed with the patient Used to drink 1-2 beers a day and quitted 25 yrs ago Denies known family hx of liver disease. Complains of worsening dysphagia - eating regular food, jello and bananas Taking meat, potatoes for supper - pt advised to blenderize his food. Hospitalized at [facility] [place] 12/07 to 12/12/22 with pneumonia. Home O2 increased from 3 to 4L/m by NC and still having SOB on exertion. Dysphagia is better and able to eat bananas, beans, mashed potatoes and food does not come back up. Food can still get stuck at ? ? ? Patient cc: chronic GERD, Abdominal bloating, and some swallowing problems with solid food. ? ? Noted improvement in breathing and swallowing after last procedure and not after the most recent procedure. Noted improvement in dysphagia which lasted for a week. Pt notes recurrent dysphagia with solids and even pills. Noted bad heartburn when he ran out of Hythiam. Heartburn improved when he restarted taking it. Stopped smoking 5 yrs ago. PAST VISIT: Complains of intermittent dysphagia every other day predominently to solids - chicken, potatoes, meats and bread. Intermittent regurgitation. Also notes dysphagia with drinking water Weight is the same. ?Tried Simethicone and was not very helpful ? Continues to have heartburn symptoms. ? ? ? Acid reflux is really bad ? Notes regurgitation of food after eating. ? Taking Omeprazole 40 mg twice daily. ? Requesting a pill to help him burp. ? Took Carafate in the past and was not helpful. ? Pt is a PPD smoker- he quit 1 year ago ? he has COPD- oxygen dependant 3L, O2 sats range from 88-93% per pt report ? denies ETOH use- he used to drink heavily ? he uses Tylenol but denies NSAID ? Takes 40 mg Omeprazole for GERD QD- will increase this to BID ? Pt was seen by ENT - Inflammed vocal cords with a bow and two nodules. ? Nodules were non-cancerous. ? He was advised to continue taking medications for?[facility] Medical History Emphysema lung Hx of hepatic disease Bronchitis Closed head injury Soft tissue injury of right chest wall Hypoxia On beta mariano at home Anxiety Bronchitis Ascending aorta dilatation O2 dependent Personal history of nicotine dependence Pulmonary nodules Hypoxemia COPD (chronic obstructive pulmonary disease) Hiatal hernia without gangrene or obstruction GERD without esophagitis Mass of upper lobe of left lung History of drug abuse History of ETOH abuse Bipolar disorder Hyperlipidemia Hypertension Surgical History History of Achilles tendon repair History of endoscopy History of biopsy History of colonoscopy History of repair of hiatal hernia (~06/01/18) Family History Father History of heart attack Mother History of COPD Sister History of cancer Brother Hx of cancer of lung Social History Household Members: Significant Other Housing: House Do you presently have visiting nurse or other home services: No Alcohol intake: never Comment: refusing bed alarm Patient Tobacco Use Status: Former Tobacco user Quit Date: 6 years ago Tobacco use type: Cigarette Second Hand Smoke Exposure: No Advance Directives Date on File: 12/08/22 service: No Review of Systems Const All systems reviewed & are unremarkable except as noted in HPI and below Physical Exam Vital Signs: Last Vital Signs BP 99/58 L 09/14/23 13:44 BMI result Body Mass Index 27.1 Const General: no acute distress and ill appearing (Chronically ill-appearing) Nutritional Appearance: overweight Orientation/consciousness: patient oriented x3 Limitations: other limitations (On Home oxygen) HEENT Head: Yes normal to inspection Ears: hearing grossly normal bilaterally Mouth: Normal oral and palatal mucosa present Eyes Sclerae: sclerae normal Pupils: Equal, round and reactive pupils present Neck Neck: Yes normal visual inspection Chest Chest palpation & inspection: normal inspection of the chest Resp Effort & Inspection: normal respiratory effort Auscultation: wheezes (Scattered expiratory wheezing) and diminished lung sounds Cardio Palpation: normal PMI Rate: regular rate Rhythm: regular rhythm Heart sounds: S1 normal heart sound present, S2 normal heart sound present and no murmurs GI Palpation (GI): Soft to palpation, nontender and No hepatosplenomegaly present Auscultation: normal bowel sounds Rectal Exam - Male: Yes deferred Skin General skin exam: no rashes or lesions noted Neuro General: patient oriented x3, gait normal and moves all extremities Cranial nerves: Yes Equal, round and reactive pupils present Psych Appearance: grossly normal Mental Status: mental status grossly normal Assessment & Plan Assessment & Plan (1) GERD without esophagitis: Code(s): K21.9 - Gastro-esophageal reflux disease without esophagitis Category: Medical (2) Hiatal hernia without gangrene or obstruction: Code(s): K44.9 - Diaphragmatic hernia without obstruction or gangrene Category: Medical (3) Anemia: Code(s): D64.9 - Anemia, unspecified Category: Medical (4) Esophageal stricture: Code(s): K22.2 - Esophageal obstruction Category: Medical (5) Cirrhosis of liver without ascites: Code(s): K74.60 - Unspecified cirrhosis of liver Category: Medical Plan 63 YM with Pulmonary nodules, COPD on home oxygen, smoker - 35 pack years, hypertension, hyperlipidemia, anxiety and bipolar disorder, 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 Patient reports having a Laparoscopic fundoplication for GERD several years ago. 07/24/2019 EGD showed a hiatal hernia, ulcerated mucosa from 34 to 36 cms with luminal narrowing and Grade 3 flap valve and a slipped fundal wrap seen on retroflexed examination of the cardia. Patient was advised to switch to pantoprazole 40 mg twice daily for erosive esophagitis - he prefers to continue taking Prilosec. (has tried different PPI in the past and Prilosec has been most effective). He was offered addition of Carafate - he refused indicating it was not helpful in the past. Patient is interested in surgery for management of GERD with erosive esophagitis. Pt was informed that surgery would carry increased risk because of advanced COPD. Pt was seen by Dr. Serrato in 02/15 regarding fundoplication and does not want to proceed with fundoplication at this point. Metoclopramide was ordered and unable to be prescribed due to a level 2 drug interaction with the invega the patient takes. Simethicone was prescribed at patient's request - to help him burp and was not very helpful. Patient complains of recurrent dysphagia to solids and sometimes to liquids (if he tries to drink water too fast). Pt had multiple EGDs with balloon dilation of esophageal stricture on 08/19 and 09/14/22, 09/26, 10/07, 10/14 and 11/11/22 REDUCING THE RISK OF LIVER PROGRESSION: patient was advised to completely avoid use of alcohol and lose weight. HCC SURVEILLANCE: the patient is at risk of developing hepatocellular carcinoma given the presence of cirrhosis and need 6 monthly imaging surveillance with either abdominal ultrasound (US) or multiphase cross-sectional imaging (CT or MRI). Last Abd US in May, 2023 had shown no focal liver lesions suspicious of HCC. He will be scheduled for follow-up liver ultrasound in 6 months for ongoing surveillance. VACCINATIONS: Pt does not have serological evidence of prior exposure to or vaccination against hepatitis a or hepatitis B. Given lack of serological evidence of immunity, he needs to undergo vaccination against both hepatitis a and hepatitis B (with a series of 3 doses at 0, 1 and 6 months). Patient should also remain up-to-date with all age-appropriate vaccinations including vaccination against pneumococcus. As we no longer have vaccines available in our Clinic, I request PCP to arrange this. SURVEILLANCE FOR GASTROESOPHAGEAL VARICES: No varices seen on past EGD. QUESTION OF LIVER TRANSPLANTATION: As pt has never had any hepatic decompensation, and continues to have good hepatic synthetic function with MELD Na score of 9, liver transplantation does not need to be considered at this time. Of note patient is not a candidate for Liver Tx due to advanced lung disease 05/04/23 Continues to have GERD and dysphagia Eats potatoes, peas, bananas, jello and maintaining his weight. Usually blenderizes the meats. Heartburn is a little better. Pt advised to continue to monitor his symptoms EGD can be scheduled if dysphagia gets worse (after anesthesia approval) Schedule abdominal US in November, - surveillance for HCC FU in 4 months Orders: Orders US abdomen limited 11/27/23 K74.60 - Unspecified cirrhosis of liver Medications: Refilled ferrous sulfate 324 mg PO DAILY 90 days 90 tabs 1RF D64.9 - Anemia, unspecified
[2023-09-14 13:44] VITALS: BP 99/58; BMI 27.1
== END 2023-09-14 14:57 | disposition home or self-care (01) ==
PROVIDERS: PCP Registered Nurse; Referring Provider Registered Nurse; Visit Provider Internal Medicine Gastroenterology
DX: K21.9 Gastro-esophageal reflux disease without esophagitis (principal); K44.9 Diaphragmatic hernia without obstruction or gangrene; D64.9 Anemia, unspecified; K22.2 Esophageal obstruction; K74.60 Unspecified cirrhosis of liver
CPT/HCPCS: 99214

== ENCOUNTER → 2023-09-14 13:30 | Outpatient (BNVA) | payer MEDICAID, SELFPAY | PROVIDERS: PCP Registered Nurse; Visit Provider Internal Medicine Gastroenterology | DX: K21.9 Gastro-esophageal reflux disease without esophagitis (principal); R13.10 Dysphagia, unspecified; K74.60 Unspecified cirrhosis of liver; K44.9 Diaphragmatic hernia without obstruction or gangrene; K22.2 Esophageal obstruction; D64.9 Anemia, unspecified | CPT/HCPCS: 99212 ==

== ENCOUNTER 2023-11-02 15:51 | Outpatient (AMB) | payer MEDICARE, MEDICAID, SELFPAY ==
--- NOTE | 2023-11-02 15:59 | A.OFFVIS_ITS ---
Vital Signs 11/02/23 16:00 Height 5 ft 10 in Weight 192 lb 14.472 oz BMI 27.7 BP 120/60 Blood Pressure Location Lt brachial Position Sitting Pulse 83 Pulse Oximetry (%) 85 L Oxygen Delivery Method Nasal Cannula Oxygen Flow Rate 2 Intake Visit Reasons: COPD Intake Note: pt is here for follow up and states he a cough with phlegm, wheeze but heat is very difficult on him, Education Administrator Required: No Allergies No Known Allergies [No Known Allergies*] Allergy (Verified 11/02/23 16:21) Medication List - Last Reconciled 11/02/23 by Chirag Codrova MD albuterol sulfate 90 mcg/actuation (Ventolin HFA) 2 puffs inhalation Q4-6H PRN 30 days atorvastatin 20 mg PO BEDTIME clonazepam 1 mg PO BID 30 days dextroamphetamine-amphetamine 10 mg 1 tab PO DAILY ferrous sulfate 324 mg PO DAILY 90 days fluticasone propion-salmeterol 500-50 mcg/dose (Wixela Inhub) 1 inh inhalation BID gabapentin 1,200 mg PO BEDTIME gabapentin 600 mg PO BID ipratropium-albuterol 0.5 mg-3 mg(2.5 mg base)/3 mL 3 mL inhalation Q6-8H PRN lamotrigine 200 mg PO BID metoprolol tartrate 25 mg PO BID naloxone 4 mg/actuation (Narcan) 4 mg intranasal Q2M PRN omeprazole 40 mg PO BID paliperidone ER (Invega) 6 mg PO QAM paliperidone ER (Invega) 3 mg PO QNOON prednisone 10 mg PO DAILY sildenafil (Viagra) 100 mg PO DAILY PRN Do you need a note to return to daycare/school/sports/work: No HPI HPI COPD: Details: ANNETTA HAS TURNED 63. HE HAS ADVANCED CHRONIC OBSTRUCTIVE PULMONARY DISEASE HE IS PAST SMOKER, ALSO HAS BIPOLAR DISORDER/ANXIETY SYNDROME. HE IS ON MAXIMAL MEDICAL THERAPY. INCLUDING O2 CONTINUOUSLY 24 HOURS A DAY. IN SPITE OF ALL THIS HE REMAINS SHORT OF BREATH ON MINIMAL EXERTION AND HAS FREQUENT BOUTS OF COUGH. HE INSISTS ON USING PREDNISONE 5 MG 2 TABLETS A DAY. HE IS ALSO BEING FOLLOWED UP FOR PULMONARY NODULES. HE IS ANXIOUS, TALKING FAST, AND GETTING SHORT OF BREATH, BUT SEEMS TO BE FAIRLY STABLE. COUNTS INCLUDE 234 BEDS AT THE [facility] Medical History Emphysema lung Hx of hepatic disease Bronchitis Closed head injury Soft tissue injury of right chest wall Hypoxia On beta mariano at home Anxiety Bronchitis Ascending aorta dilatation O2 dependent Personal history of nicotine dependence Pulmonary nodules Hypoxemia COPD (chronic obstructive pulmonary disease) Hiatal hernia without gangrene or obstruction GERD without esophagitis Mass of upper lobe of left lung History of drug abuse History of ETOH abuse Bipolar disorder Hyperlipidemia Hypertension Surgical History History of Achilles tendon repair History of endoscopy History of biopsy History of colonoscopy History of repair of hiatal hernia (~06/01/18) Family History Father History of heart attack Mother History of COPD Sister History of cancer Brother Hx of cancer of lung Social History Household Members: Significant Other Housing: House Do you presently have visiting nurse or other home services: No Alcohol intake: never Comment: refusing bed alarm Patient Tobacco Use Status: Former Tobacco user Tobacco use type: Cigarette Second Hand Smoke Exposure: No Advance Directives Date on File: 12/08/22 service: No Review of Systems Const All systems reviewed & are unremarkable except as noted in HPI and below Eyes Reports no additional complaints ENT Reports nasal congestion (Mild off and on) Card Denies chest pain, Denies irregular heart rhythm and Denies leg edema Resp Reports as per HPI GI Reports no additional complaints Reports no additional complaints Musc Reports no additional complaints Skin/Breast Reports system reviewed and no additional complaints, except as documented Neuro Reports no additional complaints Psych Reports anxiety and Reports other (Bipolar disorder, stable and controlled) Endo Reports no additional complaints Physical Exam Vital Signs: Last Vital Signs Pulse 83 11/02/23 16:00 BP 120/60 11/02/23 16:00 Pulse Ox 85 L 11/02/23 16:00 Oxygen Delivery Method Nasal Cannula 11/02/23 16:00 Oxygen Flow Rate 2 11/02/23 16:00 BMI result Body Mass Index 27.7 Const General: comfortable (But anxious), no acute distress, alert and awake Orientation/consciousness: patient oriented x3 HEENT Head: Yes normal to inspection General nose exam: No nasal polyps present and No nasal discharge present Face and sinus: Yes sinuses nontender Mouth: oropharynx normal Throat: Yes posterior oropharynx normal Eyes General: appearance normal, both eyes and all related structures Neck Neck: Yes normal visual inspection, Yes no lymphadenopathy, Yes trachea midline and Yes no JVD Thyroid: Thyroid normal Chest Chest palpation & inspection: normal inspection of the chest, normal palpation of entire chest wall and tenderness (Right mid chest is sensitive to touch) Resp Other: Percussion note resonant, breath sounds are very distant and quiet. HE HAS SCATTERED EXPIRATORY WHEEZES AND A FEW CREPITATIONS OVER BOTH BASILAR AREAS. Cardio Palpation: normal PMI Rate: regular rate Rhythm: regular rhythm Heart sounds: no gallops and no murmurs GI Palpation (GI): Soft to palpation, nontender, No hepatosplenomegaly present and no masses Auscultation: normal bowel sounds Back/Spine/Pelvis Thoracic/Lumbar Spine: thoracic and lumbar spine normal to inspection and thoraco-lumbar ROM limited Skin General skin exam: no rashes or lesions noted Neuro General: patient oriented x3 and no focal motor deficits Cranial nerves: Yes CN's II-XII intact bilaterally Extrem General: Yes normal to inspection, Yes no clubbing, cyanosis or edema and Yes no calf tenderness Psych Appearance: grossly normal and disheveled (Slightly) Mental Status: other ( ) Speech and movement: Normal speech and movement present Assessment & Plan Assessment & Plan (1) COPD (chronic obstructive pulmonary disease): Comment: Advanced COPD , but doing as good as expected. CT SCAN of the chest showed extensive degree of pulmonary emphysema and fibrosis on both sides, along with traction bronchiectasis, and mediastinal lymphadenopathy. Code(s): J44.9 - Chronic obstructive pulmonary disease, unspecified Category: Medical Plan: CONTINUE ADVAIR 500-51 INHALATION B.I.D. IPRATROPIUM-ALBUTEROL 3 MALE SOLUTION IN THE NEBULIZER Q 6-8 HOURS P.R.N. ALTERNATIVELY MAY USE VENTOLIN 2 PUFFS Q 4-6 HOURS P.R.N. PREDNISONE 5 MG 1 OR 2 TABLETS DAILY ( PATIENT INSISTS ON USING THE PREDNISONE, HE SAYS, I DO NOT CARE FOR THE SIDE EFFECTS , I JUST WANT TO REMAIN COMFORTABLE (2) Pulmonary nodules: Comment: (waxing/waning nodules b/l - new 1.1cm KAE nodule on 07/27/20 CT) but subsequent CT scan showed resolution. Nodule , 7 x 10 mm nodule in right upper lobe, being monitored closely. Code(s): R91.8 - Other nonspecific abnormal finding of lung field Category: Medical Plan: WILL REPEAT CT SCAN OF THE CHEST IN FEBRUARY 2024 (3) Anxiety: Comment: He is a known case of bipolar disorder and severe anxiety. Code(s): F41.9 - Anxiety disorder, unspecified Category: Medical Plan: CONTINUE THE REGULAR MEDICATIONS (4) O2 dependent: Comment: PATIENT HAS CHRONIC RESPIRATORY FAILURE WITH HYPOXEMIA, AND IS O2 DEPENDENT. Code(s): Z99.81 - Dependence on supplemental oxygen Category: Medical Plan: USE O2 2 L/MINUTE AT REST AND 3 L/MINUTE ON EXERTION SUCH WALKING AROUND OR GOING OUTDOORS. (5) Personal history of nicotine dependence: Comment: Longstanding history of smoking but quit 3 years ago. Code(s): Z87.891 - Personal history of nicotine dependence Category: Medical Plan: COMMENDED FOR NOT GOING BACK TO SMOKING Medications: New prednisone 5 mg PO BID 60 tabs 3RF ADVANCED COPD/BRONCHITIS 30 days Coding Level of Care Code Est Pt Level 4 (02351) Diagnoses COPD (chronic obstructive pulmonary disease) J44.9 Pulmonary nodules R91.8 Anxiety F41.9 O2 dependent Z99.81 Personal history of nicotine dependence Z87.891
[2023-11-02 16:00] VITALS: BP 120/60; PULSE 83; O2SAT 85; BMI 27.7
== END 2023-11-02 16:18 | disposition home or self-care (01) ==
PROVIDERS: PCP Registered Nurse; Visit Provider Internal Medicine
DX: J44.9 Chronic obstructive pulmonary disease, unspecified (principal); R91.8 Other nonspecific abnormal finding of lung field; F41.9 Anxiety disorder, unspecified; Z99.81 Dependence on supplemental oxygen; Z87.891 Personal history of nicotine dependence
CPT/HCPCS: 99214

== ENCOUNTER → 2023-11-02 15:51 | Outpatient (BNVA) | payer MEDICARE, MEDICAID, SELFPAY | PROVIDERS: PCP Registered Nurse; Visit Provider Internal Medicine | DX: J44.9 Chronic obstructive pulmonary disease, unspecified (principal); R91.8 Other nonspecific abnormal finding of lung field; F41.9 Anxiety disorder, unspecified; Z87.891 Personal history of nicotine dependence; Z99.81 Dependence on supplemental oxygen | CPT/HCPCS: 99212 ==

== ENCOUNTER 2023-11-16 13:54 | Outpatient (AMB) | payer MEDICARE, MEDICAID, SELFPAY ==
--- NOTE | 2023-11-16 13:55 | A.OFFVIS_ITS ---
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/Aortic root dilation Intake Note: New patient dx aortic root dilation was seeing [facility] but not since 2017 Manager Of Development Required: No Allergies No Known Allergies [No Known Allergies*] Allergy (Verified 11/02/23 16:21) Medication List - Last Reconciled 11/16/23 by Calixto Joseph MD albuterol sulfate 90 mcg/actuation (Ventolin HFA) 2 puffs inhalation Q4-6H PRN 30 days atorvastatin 20 mg PO BEDTIME clonazepam 1 mg PO BID 30 days dextroamphetamine-amphetamine 10 mg 1 tab PO DAILY ferrous sulfate 324 mg PO DAILY 90 days fluticasone propion-salmeterol 500-50 mcg/dose (Wixela Inhub) 1 inh inhalation BID gabapentin 1,200 mg PO BEDTIME gabapentin 600 mg PO BID ipratropium-albuterol 0.5 mg-3 mg(2.5 mg base)/3 mL 3 mL inhalation Q6-8H PRN lamotrigine 200 mg PO BID metoprolol tartrate 25 mg PO BID naloxone 4 mg/actuation (Narcan) 4 mg intranasal Q2M PRN omeprazole 40 mg PO TID 30 days paliperidone ER (Invega) 6 mg PO QAM paliperidone ER (Invega) 3 mg PO QNOON prednisone 5 mg PO BID 30 days sildenafil (Viagra) 100 mg PO DAILY PRN HPI Comments Details: Jony was referred here for management of ascending aortic aneurysm. He had echocardiogram performed with a outside cardiology group which showed ascending aortic size at 4.1 cm. He said this has been remained stable for many years. He is significantly limited with exercise due to his COPD and uses oxygen at 3 liters/minute at all the times including with minimal exercise as well as nighttime. However says when he is around the house and when he goes for short distances he does not use the oxygen at that time sometimes gets dizzy and has lack of balance. Denies any clear orthopnea, PND. He has not a very good his sam. Denies any symptoms of prolonged palpitation irregular heartbeat. He has never had prior myocardial infarction or any other vascular events although says never been evaluated with a stress test. He comes as he said he had trouble with his prior cardiology group in regards to follow-up set up. He denies any significant leg edema. PENDING SALE TO [facility] Medical History Emphysema lung Hx of hepatic disease Bronchitis Closed head injury Soft tissue injury of right chest wall Hypoxia On beta mariano at home Anxiety Bronchitis Ascending aorta dilatation O2 dependent Personal history of nicotine dependence Pulmonary nodules Hypoxemia COPD (chronic obstructive pulmonary disease) Hiatal hernia without gangrene or obstruction GERD without esophagitis Mass of upper lobe of left lung History of drug abuse History of ETOH abuse Bipolar disorder Hyperlipidemia Hypertension Surgical History History of Achilles tendon repair History of endoscopy History of biopsy History of colonoscopy History of repair of hiatal hernia (~06/01/18) Family History Father History of heart attack Mother History of COPD Sister History of cancer Brother Hx of cancer of lung Social History Household Members: Significant Other Housing: House Do you presently have visiting nurse or other home services: No Alcohol intake: never Comment: refusing bed alarm Patient Tobacco Use Status: Former Tobacco user Tobacco use type: Cigarette Second Hand Smoke Exposure: No Advance Directives Date on File: 12/08/22 service: No Review of Systems Const Denies chills, Denies daytime sleepiness, Denies fatigue, Denies fever(s), Denies frequent falls, Denies poor appetite, Denies snoring, Denies stops breathing during sleep, Denies weakness, Denies weight gain and Denies weight loss Eyes Denies loss of vision ENT Denies dizziness and Denies hearing loss Card Denies chest pain, Denies claudication, Denies leg edema, Denies lightheadedness, Denies palpitations, Denies dyspnea, Denies dyspnea on exertion and Denies orthopnea Resp Denies cough, Denies excessive phlegm production, Denies dyspnea, Denies dyspnea on exertion, Denies snoring and Denies wheezing GI Denies abdominal pain, Denies hematochezia, Denies change in bowel habits, Denies nausea and Denies vomiting Denies dysuria and Denies urinary frequency Musc Denies arthralgias, Denies muscle weakness, Denies numbness and Denies other (frequent falls) Skin/Breast Denies nail changes and Denies rash Neuro Denies Abnormal speech present, Denies dizziness, Denies frequent falls, Denies loss of vision, Denies memory loss, Denies numbness and Denies weakness Psych Denies depression and Denies memory loss Endo Denies fatigue and Denies palpitations Danielito/Lymph Reports easy bruising and Reports other (anemia) Aller/Immun Denies wheezing Physical Exam Vital Signs: Last Vital Signs Pulse 87 11/16/23 13:56 BP 130/74 11/16/23 13:56 BMI result Body Mass Index 27.2 Const General: cooperative, comfortable, alert, awake and in distress mild and respiratory Nutritional Appearance: overweight Orientation/consciousness: patient oriented x3 Limitations: no limitations HEENT Head: Yes normocephalic and Yes atraumatic Neck Neck: Yes trachea midline, Yes supple and Yes no JVD Resp Effort & Inspection: normal respiratory effort Auscultation: no crackles, no wheezes and diminished lung sounds Cardio Jugular venous distension: no JVD Rate: regular rate Rhythm: regular rhythm Heart sounds: S1 normal heart sound present, S2 normal heart sound present, no click, no gallops, no murmurs and no rubs GI Auscultation: normal bowel sounds Skin General skin exam: no rashes or lesions noted Neuro General: patient oriented x3 and no focal motor deficits Speech: No Abnormal speech present Extrem General: Yes no clubbing, cyanosis or edema Psych Appearance: grossly normal Office Procedures EKG Details: EKG shows normal sinus rhythm with normal EKG with no significant ST T wave changes [id number], Complete Assessment & Plan Assessment & Plan (1) SOB (shortness of breath) on exertion: Code(s): R06.02 - Shortness of breath Category: Medical Plan: Shortness of breath on exertion most likely related to his underlying significant COPD with chronic respiratory failure. Although given his risk factors underlying coronary artery disease is likely. This has not been adequately ruled out. He is normal LV ejection fraction no other signs of congestive heart failure. Will suggest a vasodilating myocardial perfusion imaging to evaluate for the same. (2) Ascending aorta enlargement: Code(s): I77.89 - Other specified disorders of arteries and arterioles Category: Medical Plan: Ascending aortic aneurysm which is mild in diameter. This has remained stable as per him for many years. Will continue monitor by echocardiogram on annual basis. Advised to avoid sudden strenuous isometric exercise. Likelihood of this leading to acute aortic syndrome is low and this was discussed with him. Will follow up in the clinic in 1 year's time after an echocardiogram. Thank you for allowing me to partake in his care Orders: Orders CA lexiscan stress w sharri Today R06.02 - Shortness of breath CA echo transthoracic complete 1 Year I77.89 - Other specified disorders of arteries and arterioles Coding Level of Care Code New Pt Level 4 (27257) Diagnoses SOB (shortness of breath) on exertion R06.02 Ascending aorta enlargement I77.89 CPT Codes EKG - CPT: 85134-[id number], Complete ([id number])
[2023-11-16 13:56] VITALS: BP 130/74; PULSE 87; BMI 27.2
== END 2023-11-16 14:31 | disposition home or self-care (01) ==
PROVIDERS: PCP Registered Nurse; Visit Provider Internal Medicine Cardiovascular Disease
DX: I71.21 Aneurysm of the ascending aorta, without rupture (principal); R06.02 Shortness of breath
CPT/HCPCS: 93010; 99214

== ENCOUNTER → 2023-11-16 13:54 | Outpatient (BNVA) | payer MEDICARE, MEDICAID, SELFPAY | PROVIDERS: PCP Registered Nurse; Visit Provider Internal Medicine Cardiovascular Disease | DX: I71.21 Aneurysm of the ascending aorta, without rupture (principal); R06.02 Shortness of breath; Z99.81 Dependence on supplemental oxygen | CPT/HCPCS: 93005; 99212 ==

== ENCOUNTER 2023-11-27 16:17 | Outpatient (REF) | payer MEDICARE, MEDICAID, SELFPAY ==
--- NOTE | ~2023-11-27 | US_ITS ---
EXAMINATION: US ABDOMEN LIMITED CLINICAL INFORMATION: Unspecified cirrhosis of liver. HCC screen. COMPARISON: Limited abdominal ultrasound 06/19/2023. Ultrasound abdomen complete with liver elastography 01/25/2023. CT abdomen and pelvis 10/04/2018. TECHNIQUE: Real-time imaging of the right upper quadrant abdominal viscera. FINDINGS: PANCREAS: The pancreas is obscured by bowel gas. LIVER: The liver is normal in size. The liver contour is normal. There is diffuse increased liver parenchymal echogenicity, consistent with hepatic steatosis. No focal hepatic lesion. There is no intrahepatic biliary duct dilatation seen. GALLBLADDER: Normal. The gallbladder is physiologically distended without evidence of stones, sludge, polyps, wall thickening or pericholecystic fluid. COMMON BILE DUCT: Normal in caliber measuring 0.4 cm in diameter. RIGHT KIDNEY: Normal. No hydronephrosis. No renal calculi or focal parenchymal lesions. The kidney measures 11.6 cm in maximum dimension. FREE FLUID: None. US/US abdomen limited IMPRESSION: 1. Hepatic steatosis. No hepatic mass. 2. The pancreas is obscured by bowel gas.
== END 2023-11-27 16:18 | disposition home or self-care (01) ==
LOC: HO.US 16:17
PROVIDERS: PCP Registered Nurse; Visit Provider Internal Medicine Gastroenterology
DX: K74.60 Unspecified cirrhosis of liver (principal)
CPT/HCPCS: 76705

== ENCOUNTER → 2024-01-10 10:03 | Outpatient (REF) | payer MEDICARE, MEDICAID, SELFPAY ==
--- NOTE | ~2024-01-10 | NM_ITS ---
Lexiscan Myocardial perfusion study Indication: Shortness of breath Technique: The patient was brought in for a Lexiscan perfusion study on 01/10/2024 and was injected 0.4 mg of Lexiscan intravenously. Within a minute of this injection 30 mCi of sestamibi was given intravenously. Images were obtained using the SPECT gamma camera interlaced with the gating device. Images were obtained in supine position. Resting perfusion study was performed on 01/12/2024. Patient was administered 30 mCi of sestamibi intravenously at rest. Images were then obtained in supine position. Images were processed with the software and compared side to side in short axis, horizontal long axis and vertical long axis views. Total DLP 47mG-cm. Findings: Raw acquisition reviewed. Arms by the patient's side. The stress perfusion study showed mildly diminished tracer uptake along the inferior wall. There is improvement with CT attenuation correction but there is also adjacent subdiaphragmatic uptake that interferes with image interpretation. The gated study shows normal LV systolic function with calculated LVEF of 74%. LV cavity is normal in size. The gated study shows normal wall thickening and contraction of segments. Resting study shows no significant perfusion abnormality. Gating at rest reveals normal wall motion with ejection fraction at 69%. The findings are consistent with mild reversible inferior defect likely due to diaphragmatic attenuation artifact as well as subdiaphragmatic tracer uptake. NM/NM sharri perf SPECT rest & str Impression: 1. Myocardial perfusion imaging study shows probably normal myocardial perfusion. No definitive evidence of any ischemia or infarction. 2. Gated LVEF is 74% during stress and 69% during rest. 3. Transient ischemic dilatation not present. EKG component of the test reported separately.
--- NOTE | 2024-01-10 10:08 | CA_ITS ---
Acquisition Time: 2024-01-10 10:34:46 Total Exercise Time: 00:02:00 Test Indications: Dyspnea CP Medications: Protocol: LEXISCAN Max HR: 111 BPM 71% of Pred: 155 BPM Max BP: 128/062 mmHG Max Work Load: 1.0 METS Pharmacologhical stress test with Lexiscan injection while sititng, with moderate SOB, without chest pains, without arrhythmias, with normotesnive response to injection, with nondiagnoistiic EKGs. Aminophylline 75mg IVP given to reverse Lexiscan. Nuclear images pending. Test reviewed with Dr. Meyer Referred By: Calixto Joseph Overread By: Kristin Garcia
== END ==
LOC: HO.CARD 10:03
PROVIDERS: PCP Registered Nurse; Visit Provider Internal Medicine Cardiovascular Disease
DX: R06.02 Shortness of breath (principal)
CPT/HCPCS: 78452; 93017; A9500; J0280; J2785

== ENCOUNTER → 2024-01-10 10:08 | Outpatient (BNV) | payer MEDICARE, MEDICAID, SELFPAY | PROVIDERS: PCP Registered Nurse; Visit Provider Nurse Practitioner | DX: R06.02 Shortness of breath (principal) | CPT/HCPCS: 78452; 93016; 93018 ==

== ENCOUNTER 2024-01-11 15:31 | Outpatient (AMB) | payer MEDICARE, MEDICAID, SELFPAY ==
--- NOTE | 2024-01-11 15:43 | A.OFFVIS_ITS ---
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 Allergies No Known Allergies [No Known Allergies*] Allergy (Verified 01/11/24 16:23) Medication List - Last Reconciled 01/11/24 by Chirag Cordova MD albuterol sulfate 90 mcg/actuation (Ventolin HFA) 2 puffs inhalation Q4-6H PRN 30 days atorvastatin 20 mg PO BEDTIME clonazepam 1 mg PO BID 30 days dextroamphetamine-amphetamine 10 mg 1 tab PO DAILY ferrous sulfate 324 mg PO DAILY 90 days fluticasone propion-salmeterol 500-50 mcg/dose (Wixela Inhub) 1 inh inhalation BID gabapentin 1,200 mg PO BEDTIME gabapentin 600 mg PO BID ipratropium-albuterol 0.5 mg-3 mg(2.5 mg base)/3 mL 3 mL inhalation Q6-8H PRN lamotrigine 200 mg PO BID metoprolol tartrate 25 mg PO BID naloxone 4 mg/actuation (Narcan) 4 mg intranasal Q2M PRN omeprazole 40 mg PO TID 30 days paliperidone ER (Invega) 6 mg PO QAM paliperidone ER (Invega) 3 mg PO QNOON prednisone 5 mg PO BID 30 days sildenafil (Viagra) 100 mg PO DAILY PRN Do you need a note to return to daycare/school/sports/work: No HPI HPI COPD: Details: SCOTT FOR HIS ROUTINE FOLLOW-UP HE CONTINUES TO HAVE COUGH AND SHORTNESS OF BREATH ON MINIMAL EXERTION. NO FEVER CHILLS OR ANY SIGNIFICANT EXPECTORATION. HE CONSIDERS HIMSELF AT BASELINE. HE BAGS ME TO KEEP HIM ON PREDNISONE BECAUSE IT HELPS. USING ALL HIS MEDICATIONS REGULARLY. HE IS ON OXYGEN 24 HOURS A DAY. TODAY HE WALKED IN WITH O2 2 L/MINUTE AND WAS DOING WELL. FORMERLY [facility], [facility] Medical History Emphysema lung Hx of hepatic disease Bronchitis Closed head injury Soft tissue injury of right chest wall Hypoxia On beta mariano at home Anxiety Bronchitis Ascending aorta dilatation O2 dependent Personal history of nicotine dependence Pulmonary nodules Hypoxemia COPD (chronic obstructive pulmonary disease) Hiatal hernia without gangrene or obstruction GERD without esophagitis Mass of upper lobe of left lung History of drug abuse History of ETOH abuse Bipolar disorder Hyperlipidemia Hypertension Surgical History History of Achilles tendon repair History of endoscopy History of biopsy History of colonoscopy History of repair of hiatal hernia (~06/01/18) Family History Father History of heart attack Mother History of COPD Sister History of cancer Brother Hx of cancer of lung Social History Household Members: Significant Other Housing: House Do you presently have visiting nurse or other home services: No Alcohol intake: never Comment: refusing bed alarm Patient Tobacco Use Status: Former Tobacco user Tobacco use type: Cigarette Second Hand Smoke Exposure: No Advance Directives Date on File: 12/08/22 service: No Review of Systems Const All systems reviewed & are unremarkable except as noted in HPI and below Eyes Reports no additional complaints ENT Reports nasal congestion (Mild off and on) Card Denies chest pain, Denies irregular heart rhythm and Denies leg edema Resp Reports as per HPI GI Reports no additional complaints Reports no additional complaints Musc Reports no additional complaints Skin/Breast Reports system reviewed and no additional complaints, except as documented Neuro Reports no additional complaints Psych Reports anxiety and Reports other (Bipolar disorder, stable and controlled) Endo Reports no additional complaints Physical Exam Vital Signs: Last Vital Signs Pulse 88 01/11/24 15:44 BP 102/60 01/11/24 15:44 Pulse Ox 91 L 01/11/24 15:44 Oxygen Delivery Method Nasal Cannula 01/11/24 15:44 Oxygen Flow Rate 3 01/11/24 15:44 BMI result Body Mass Index 26.6 Const General: comfortable (But anxious), no acute distress, alert and awake Orientation/consciousness: patient oriented x3 HEENT Head: Yes normal to inspection General nose exam: No nasal polyps present and No nasal discharge present Face and sinus: Yes sinuses nontender Mouth: oropharynx normal Throat: Yes posterior oropharynx normal Eyes General: appearance normal, both eyes and all related structures Neck Neck: Yes normal visual inspection, Yes no lymphadenopathy, Yes trachea midline and Yes no JVD Thyroid: Thyroid normal Chest Chest palpation & inspection: normal inspection of the chest, normal palpation of entire chest wall and tenderness (Right mid chest is sensitive to touch) Resp Other: Percussion note resonant, breath sounds are very distant and quiet. HE HAS SCATTERED EXPIRATORY WHEEZES AND A FEW CREPITATIONS OVER BOTH BASILAR AREAS. Cardio Palpation: normal PMI Rate: regular rate Rhythm: regular rhythm Heart sounds: no gallops and no murmurs GI Palpation (GI): Soft to palpation, nontender, No hepatosplenomegaly present and no masses Auscultation: normal bowel sounds Back/Spine/Pelvis Thoracic/Lumbar Spine: thoracic and lumbar spine normal to inspection and thoraco-lumbar ROM limited Skin General skin exam: no rashes or lesions noted Neuro General: patient oriented x3 and no focal motor deficits Cranial nerves: Yes CN's II-XII intact bilaterally Extrem General: Yes normal to inspection, Yes no clubbing, cyanosis or edema and Yes no calf tenderness Psych Appearance: grossly normal and disheveled (Slightly) Mental Status: other ( ) Speech and movement: Normal speech and movement present Assessment & Plan Assessment & Plan (1) COPD (chronic obstructive pulmonary disease): Comment: Advanced COPD , but doing as good as expected. CT SCAN of the chest showed extensive degree of pulmonary emphysema and fibrosis on both sides, along with traction bronchiectasis, and mediastinal lymphadenopathy. Code(s): J44.9 - Chronic obstructive pulmonary disease, unspecified Category: Medical Plan: CONTINUE ADVAIR 500-51 INHALATION B.I.D. IPRATROPIUM-ALBUTEROL UPDRAFT Q 6 HOURS WHILE AWAKE ALBUTEROL HFA 2 PUFFS Q 4-6 HOURS P.R.N. WHEN OUTDOORS PREDNISONE 5 MG B.I.D. (2) O2 dependent: Comment: PATIENT HAS CHRONIC RESPIRATORY FAILURE WITH HYPOXEMIA, AND IS O2 DEPENDENT. Code(s): Z99.81 - Dependence on supplemental oxygen Category: Medical Plan: CONTINUE O2 2 L/MINUTE AT REST AND MAY INCREASE TO 3 L/MINUTE WHEN OUTDOORS OR WALKING AROUND (3) Anxiety: Comment: He is a known case of bipolar disorder and severe anxiety. Code(s): F41.9 - Anxiety disorder, unspecified Category: Medical Plan: CONTINUE PRESENT ANTIPSYCHOTIC AND ANTI ANXIETY MEDS Coding Level of Care Code Est Pt Level 3 (23578) Diagnoses COPD (chronic obstructive pulmonary disease) J44.9 O2 dependent Z99.81 Anxiety F41.9
[2024-01-11 15:44] VITALS: BP 102/60; PULSE 88; O2SAT 91; BMI 26.6
== END 2024-01-11 16:07 | disposition home or self-care (01) ==
PROVIDERS: PCP Registered Nurse; Visit Provider Internal Medicine
DX: J44.9 Chronic obstructive pulmonary disease, unspecified (principal); Z99.81 Dependence on supplemental oxygen; F41.9 Anxiety disorder, unspecified
CPT/HCPCS: 99213

== ENCOUNTER → 2024-01-11 15:31 | Outpatient (BNVA) | payer MEDICARE, MEDICAID, SELFPAY | PROVIDERS: PCP Registered Nurse; Visit Provider Internal Medicine | DX: J44.9 Chronic obstructive pulmonary disease, unspecified (principal); F41.9 Anxiety disorder, unspecified; Z99.81 Dependence on supplemental oxygen | CPT/HCPCS: 99212 ==

== ENCOUNTER 2024-03-12 16:02 | Outpatient (AMB) | payer MEDICARE, MEDICAID, SELFPAY ==
--- NOTE | 2024-03-12 16:07 | MHC.OFFVIS ---
Vital Signs 03/12/24 16:08 Height 5 ft 10 in Weight 187 lb BMI 26.8 BP 120/60 Blood Pressure Location Lt brachial Position Sitting Pulse 86 Pulse Source Pulse Oximeter Pulse Oximetry (%) 92 Oxygen Delivery Method Nasal Cannula Oxygen Flow Rate 5 Intake Visit Reasons: COPD Intake Note: pt is here for follow up and he is not feeling well for about 1 1/2 weeks. coughing, sore throat, wheezing, just doesn't feel good. 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 Allergies No Known Allergies [No Known Allergies*] Allergy (Verified 03/12/24 16:15) Medication List - Last Reconciled 03/12/24 by Chirag Cordova MD albuterol sulfate 90 mcg/actuation (Ventolin HFA) 2 puffs inhalation Q4-6H PRN 30 days atorvastatin 20 mg PO BEDTIME clonazepam 1 mg PO BID 30 days dextroamphetamine-amphetamine 10 mg 1 tab PO DAILY ferrous sulfate 324 mg PO DAILY 90 days fluticasone propion-salmeterol 500-50 mcg/dose (Wixela Inhub) 1 inh inhalation BID gabapentin 1,200 mg PO BEDTIME gabapentin 600 mg PO BID ipratropium-albuterol 0.5 mg-3 mg(2.5 mg base)/3 mL 3 mL inhalation Q6-8H PRN lamotrigine 200 mg PO BID metoprolol tartrate 25 mg PO BID naloxone 4 mg/actuation (Narcan) 4 mg intranasal Q2M PRN omeprazole 40 mg PO TID 30 days paliperidone ER (Invega) 6 mg PO QAM paliperidone ER (Invega) 3 mg PO QNOON prednisone 5 mg PO BID 30 days sildenafil (Viagra) 100 mg PO DAILY PRN Do you need a note to return to daycare/school/sports/work: No HPI HPI COPD: Details: Marek 64 years old gentleman with advanced chronic obstructive pulmonary disease and he also has chronic bipolar disorder as well as lot of anxiety syndrome. He is O2 dependent and, maintains his O2 sats in normal range as long as he is sitting, but when he goes outdoors and walks from the parking lot to the office his O2 sats fall quickly. He has to check up the O2 flow to 4-5 L/minute. Need less to say he becomes very concerned and anxious with that. Luckily he has had no recent respiratory infection. Today he was complaining of having sore throat for about 1 week, wanted me to look in his throat more carefully. Also worried that he may have pneumonia. He does not smoke anymore. He remains worried about lung cancer. [facility] Medical History Emphysema lung Hx of hepatic disease Bronchitis Closed head injury Soft tissue injury of right chest wall Hypoxia On beta mariano at home Anxiety Bronchitis Ascending aorta dilatation O2 dependent Personal history of nicotine dependence Pulmonary nodules Hypoxemia COPD (chronic obstructive pulmonary disease) Hiatal hernia without gangrene or obstruction GERD without esophagitis Mass of upper lobe of left lung History of drug abuse History of ETOH abuse Bipolar disorder Hyperlipidemia Hypertension Surgical History History of Achilles tendon repair History of endoscopy History of biopsy History of colonoscopy History of repair of hiatal hernia (~06/01/18) Family History Father History of heart attack Mother History of COPD Sister History of cancer Brother Hx of cancer of lung Social History Household Members: Significant Other Housing: House Do you presently have visiting nurse or other home services: No Alcohol intake: never Comment: refusing bed alarm Patient Tobacco Use Status: Former Tobacco user Tobacco use type: Cigarette Second Hand Smoke Exposure: No Advance Directives Date on File: 12/08/22 service: No Review of Systems Const All systems reviewed & are unremarkable except as noted in HPI and below Eyes Reports no additional complaints ENT Reports nasal congestion (Mild off and on) Card Denies chest pain, Denies irregular heart rhythm and Denies leg edema Resp Reports as per HPI GI Reports no additional complaints Reports no additional complaints Musc Reports no additional complaints Skin/Breast Reports system reviewed and no additional complaints, except as documented Neuro Reports no additional complaints Psych Reports anxiety and Reports other (Bipolar disorder, stable and controlled) Endo Reports no additional complaints Physical Exam Vital Signs: Last Vital Signs Pulse 86 03/12/24 16:08 BP 120/60 03/12/24 16:08 Pulse Ox 92 03/12/24 16:08 Oxygen Delivery Method Nasal Cannula 03/12/24 16:08 Oxygen Flow Rate 5 03/12/24 16:08 BMI result Body Mass Index 26.8 Const General: comfortable (But anxious), no acute distress, alert and awake Orientation/consciousness: patient oriented x3 HEENT Head: Yes normal to inspection General nose exam: No nasal polyps present and No nasal discharge present Face and sinus: Yes sinuses nontender Mouth: oropharynx normal Throat: Yes posterior oropharynx normal Eyes General: appearance normal, both eyes and all related structures Neck Neck: Yes normal visual inspection, Yes no lymphadenopathy, Yes trachea midline and Yes no JVD Thyroid: Thyroid normal Chest Chest palpation & inspection: normal inspection of the chest, normal palpation of entire chest wall and tenderness (Right mid chest is sensitive to touch) Resp Other: Percussion note resonant, breath sounds are very distant and quiet. HE HAS SCATTERED EXPIRATORY WHEEZES AND A FEW CREPITATIONS OVER BOTH BASILAR AREAS. SAME USUAL . Cardio Palpation: normal PMI Rate: regular rate Rhythm: regular rhythm Heart sounds: no gallops and no murmurs GI Palpation (GI): Soft to palpation, nontender, No hepatosplenomegaly present and no masses Auscultation: normal bowel sounds Back/Spine/Pelvis Thoracic/Lumbar Spine: thoracic and lumbar spine normal to inspection and thoraco-lumbar ROM limited Skin General skin exam: no rashes or lesions noted Neuro General: patient oriented x3 and no focal motor deficits Cranial nerves: Yes CN's II-XII intact bilaterally Extrem General: Yes normal to inspection, Yes no clubbing, cyanosis or edema and Yes no calf tenderness Psych Appearance: grossly normal and disheveled (Slightly) Mental Status: other ( ) Speech and movement: Normal speech and movement present Results Reviewed Results Reviewed: I walked with him for 4 minutes with his portable unit. O2 sat at rest on 2.5 L/minute 97%. After walking for 3 minutes O2 sat dropped to 89%. After sitting for 1 minute and O2 flow at 3 L/minute O2 sat is back to 95% Assessment & Plan Assessment & Plan (1) COPD (chronic obstructive pulmonary disease): Comment: Advanced COPD , but doing as good as expected. CT SCAN of the chest showed extensive degree of pulmonary emphysema and fibrosis on both sides, along with traction bronchiectasis, and mediastinal lymphadenopathy. Code(s): J44.9 - Chronic obstructive pulmonary disease, unspecified Category: Medical Plan: Continue prednisone 5 mg b.i.d. ( he has always insisted that he wants to stay on prednisone ) Ipratropium-albuterol solution in the updraft and used 3 times a day (2) Bronchitis: Comment: He is prone to have recurrent bouts of acute bronchitis. At present I do not think that he has any active chest infection. I try to reassure him but it is difficult to take away his ongoing fear of pneumonia. Code(s): J40 - Bronchitis, not specified as acute or chronic Category: Medical Plan: Reassured him and I also discussed with him that he is due for his annual CT scan anyway Now he feels reassured (3) O2 dependent: Comment: PATIENT HAS CHRONIC RESPIRATORY FAILURE WITH HYPOXEMIA, AND IS O2 DEPENDENT. Code(s): Z99.81 - Dependence on supplemental oxygen Category: Medical Plan: Talked to him and we both agreed on the following: When resting use O2 at 2.5-3 L/minute. Keep O2 sat above. 90% When outdoors and using portable cylinder use O2 at 3 L/minute. If still O2 sat falls down below 90% then rest and take some deep breaths. (4) Pulmonary nodules: Comment: (waxing/waning nodules b/l - new 1.1cm KAE nodule on 07/27/[address] CT) but subsequent CT scan showed resolution. Nodule , 7 x 10 mm nodule in right upper lobe, being monitored closely. Code(s): R91.8 - Other nonspecific abnormal finding of lung field Category: Medical Plan: For follow-up he would need CT scan before the end of the year. Order has been entered. Orders: Orders CT chest wo IV con 4 Weeks R91.8 - Other nonspecific abnormal finding of lung field Coding Level of Care Code Est Pt Level 4 (47277) Diagnoses COPD (chronic obstructive pulmonary disease) J44.9 Bronchitis J40 O2 dependent Z99.81 Pulmonary nodules R91.8
[2024-03-12 16:08] VITALS: BP 120/60; PULSE 86; O2SAT 92; BMI 26.8
== END 2024-03-12 16:28 | disposition home or self-care (01) ==
PROVIDERS: PCP Registered Nurse; Visit Provider Internal Medicine
DX: J44.9 Chronic obstructive pulmonary disease, unspecified (principal); J40 Bronchitis, not specified as acute or chronic; Z99.81 Dependence on supplemental oxygen; R91.8 Other nonspecific abnormal finding of lung field
CPT/HCPCS: 99214

== ENCOUNTER → 2024-03-12 16:02 | Outpatient (BNVA) | payer MEDICARE, MEDICAID, SELFPAY | PROVIDERS: PCP Registered Nurse; Visit Provider Internal Medicine | DX: J44.9 Chronic obstructive pulmonary disease, unspecified (principal); J40 Bronchitis, not specified as acute or chronic; R91.8 Other nonspecific abnormal finding of lung field; Z99.81 Dependence on supplemental oxygen | CPT/HCPCS: 99212 ==

== ENCOUNTER 2024-03-14 13:37 | Outpatient (AMB) | payer MEDICARE, MEDICAID, SELFPAY ==
--- NOTE | 2024-03-14 13:39 | MHC.OFFVIS ---
Vital Signs 03/14/24 13:47 Height 5 ft 10 in Weight 185 lb BMI 26.5 BP 114/62 Blood Pressure Location Lt brachial Position Sitting Pulse 75 Intake Visit Reasons: 6 month follow up Intake Note: Patient 6 month follow up for Anemia and US results. Patient cc: liver pain and denies any other GI issues. Companion Caregiver Required: No Accompanied by: Self / Same As Patient Allergies No Known Allergies [No Known Allergies*] Allergy (Verified 03/14/24 13:41) Medication List - Last Reconciled 03/14/24 by Melissa Handy MD albuterol sulfate 90 mcg/actuation (Ventolin HFA) 2 puffs inhalation Q4-6H PRN 30 days atorvastatin 20 mg PO BEDTIME clonazepam 1 mg PO BID 30 days dextroamphetamine-amphetamine 10 mg 1 tab PO DAILY ferrous sulfate 324 mg PO DAILY 90 days fluticasone propion-salmeterol 500-50 mcg/dose (Wixela Inhub) 1 inh inhalation BID gabapentin 1,200 mg PO BEDTIME gabapentin 600 mg PO BID ipratropium-albuterol 0.5 mg-3 mg(2.5 mg base)/3 mL 3 mL inhalation Q6-8H PRN lamotrigine 200 mg PO BID metoprolol tartrate 25 mg PO BID naloxone 4 mg/actuation (Narcan) 4 mg intranasal Q2M PRN omeprazole 40 mg PO TID 30 days paliperidone ER (Invega) 6 mg PO QAM paliperidone ER (Invega) 3 mg PO QNOON prednisone 5 mg PO BID 30 days sildenafil (Viagra) 100 mg PO DAILY PRN HPI HPI 6 month follow up: Details: GI CLINIC VISIT FOR THIS 64-YEAR-OLD MALE FOR FOLLOW-UP OF GERD AND DYSPHAGIA. 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 Lab studies revealed anemia and elevated liver enzymes- further workup needed for evaluation, obtaining FIT, labs to evaluate anemia and repeat LFTS including an US w elastography ? Patient has severe COPD- Request clearance from Pulm to determine risk vs benefit fro EGD. ? He also has multiple pulmonary nodules that do have an inflammatory type of appearance and behavior over serial CT scans. However to r/o an occult malignancy he will have a navigational bronchoscopy with biopsy of new and increasing pulmonary nodules in the left upper lobe by Dr. Nieves. ? TODAY'S VISIT Patient 6 month follow up for Anemia and US results. Patient cc: liver pain and denies any other GI issues. Lab and US results reviewed. Intermittent dysphagia - reports overall improvement in dysphagia and has been tolerating PO diet. PAST VISITS: Had chicken pot pie yesterday and a potato got stuck and he had to regurgitate it. Advised to eat mashed potatoes/blendarized diet. Denies dysphagia today Continues to have GERD and dysphagia Eats potatoes, peas, bananas, jello and maintaining his weight. Usually blenderizes the meat. Heartburn is a little better. Complains of RUQ pain radiating laterally to the back Labs and US results reviewed with the patient Used to drink 1-2 beers a day and quitted 25 yrs ago Denies known family hx of liver disease. Complains of worsening dysphagia - eating regular food, jello and bananas Taking meat, potatoes for supper - pt advised to blenderize his food. Hospitalized at [facility] [place] 12/07 to 12/12/22 with pneumonia. Home O2 increased from 3 to 4L/m by SD and still having SOB on exertion. Dysphagia is better and able to eat bananas, beans, mashed potatoes and food does not come back up. Food can still get stuck at ? ? ? Patient cc: chronic GERD, Abdominal bloating, and some swallowing problems with solid food. ? ? Noted improvement in breathing and swallowing after last procedure and not after the most recent procedure. Noted improvement in dysphagia which lasted for a week. Pt notes recurrent dysphagia with solids and even pills. Noted bad heartburn when he ran out of Prilosec. Heartburn improved when he restarted taking it. Stopped smoking 5 yrs ago. PAST VISIT: Complains of intermittent dysphagia every other day predominently to solids - chicken, potatoes, meats and bread. Intermittent regurgitation. Also notes dysphagia with drinking water Weight is the same. ?Tried Simethicone and was not very helpful ? Continues to have heartburn symptoms. ? ? ? Acid reflux is really bad ? Notes regurgitation of food after eating. ? Taking Omeprazole 40 mg twice daily. ? Requesting a pill to help him burp. ? Took Carafate in the past and was not helpful. ? Pt is a PPD smoker- he quit 1 year ago ? he has COPD- oxygen dependant 3L, O2 sats range from 88-93% per pt report ? denies ETOH use- he used to drink heavily ? he uses Tylenol but denies NSAID ? Takes 40 mg Omeprazole for GERD QD- will increase this to BID ? Pt was seen by ENT - Inflammed vocal cords with a bow and two nodules. ? Nodules were non-cancerous. ? He was advised to continue taking medications for?GERD LABS IN [facility]: 04/15/19 H & H of 11 & 32.9, INR 1.2, ? Iron studies were suggestive of iron deficiency anemia ? Normal LFTs except to total bilirubin of 1.2. ? Serologies for celiac sprue were negative. ?IMAGING STUDIES: May, 2023 ABD US SHOWED: 1. Hepatic steatosis. 2. Small right pleural effusion. 01/25/23 ABD US SHOWED: 1. Changes of hepatic steatosis. Nonspecific moderate splenomegaly. 2. Liver elastography: Although measurements are suggestive of compensated advanced chronic liver disease, there is statistical variability of the sampling which decreases accuracy. 06/17 BARIUM SWALLOW SHOWED:? Laryngeal penetration with swallowing. No marco a aspiration seen. Small hiatal and paraesophageal hernias. Mild mucosal irregularity and narrowing of the distal thoracic esophagus concerning for a stricture. correlation with endoscopy recommended. Significant gastroesophageal reflux. ? 05/16 ABDOMINAL ULTRASOUND WITH ELASTOGRAPHY SHOWED: ? 1. Mildly echogenic liver suggesting hepatic steatosis. ? 2. Elastography: 1.51, this is compatible with mild to moderate fibrosis. ?ENDOSCOPIC STUDIES:11/11/22 EGD SHOWED: LARYNX: Scarring with thickening of vocal cords with healed ulcer seen on past EGD ESOPHAGUS: Focal ulceration at 34 to 36 cms with luminal narrowing - biopsies obtained.? Hiatal hernia 36 to 40 cms.? Balloon dilation was performed with 13.5 and 15 mm CRE balloon for 60 sec at each level. Triamcinolone 40 mg was injected into the stricture - 10 ml in each quadrant Plan: Repeat EGD with esophageal balloon dilation in 6 to 8 weeks Esophagus, stricture, biopsy: - Cardiac-type mucosa with moderate chronic active inflammation; no intestinal metaplasia seen. - No squamous epithelium seen. 01/2021 EGD SHOWED: LARYNX: scarring with thickening of vocal cords with healed ulcer seen on past EGD ESOPHAGUS: Focal ulceration at 34 to 36 cms with luminal narrowing - multiple biopsies were obtained and stricture dilated to 15 mm (45 F) with a CRE balloon.?Hiatal hernia 36 to 40 cms.?STOMACH: Mild gastric erythema. Biopsies were obtained. Grade 3 flap valve and slipped fundal wrap on retroflexed examination of the cardia. Plan:? Repeat EGD in 4 to 6 weeks for repeat dilation. 10/29/19 EGD SHOWED:? Larynx: Some scarring of vocal cords with healed ulcer seen on past EGD? Esophagus: Ulcerated mucosa from 34 to 36 cms with luminal narrowing - multiple biopsies were obtained. Hiatal hernia 36 to 40 cms. ? Stomach: Mild gastric erythema. Biopsies obtained on past EGD were negative for HP. ? Grade 3 flap valve and slipped fundal wrap seen on retroflexed examination of the cardia. ? Esophagus, stricture, biopsy: ? 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 ? - No dysplasia seen. ? - No fungi or viral changes seen. ? EGD 04/14 Dr. Mccloud- Benign 15mm ulceration of LES, moderate erosive esophagitis, short-segment Max's. ? [facility] 04/15 [facility] Medical History Emphysema lung Hx of hepatic disease Bronchitis Closed head injury Soft tissue injury of right chest wall Hypoxia On beta mariano at home Anxiety Bronchitis Ascending aorta dilatation O2 dependent Personal history of nicotine dependence Pulmonary nodules Hypoxemia COPD (chronic obstructive pulmonary disease) Hiatal hernia without gangrene or obstruction GERD without esophagitis Mass of upper lobe of left lung History of drug abuse History of ETOH abuse Bipolar disorder Hyperlipidemia Hypertension Surgical History History of Achilles tendon repair History of endoscopy History of biopsy History of colonoscopy History of repair of hiatal hernia (~06/01/18) Family History Father History of heart attack Mother History of COPD Sister History of cancer Brother Hx of cancer of lung Social History Household Members: Significant Other Housing: House Do you presently have visiting nurse or other home services: No Alcohol intake: never Comment: refusing bed alarm Patient Tobacco Use Status: Former Tobacco user Tobacco use type: Cigarette Second Hand Smoke Exposure: No Advance Directives Date on File: 12/08/22 service: No Review of Systems Const All systems reviewed & are unremarkable except as noted in HPI and below Physical Exam Vital Signs: Last Vital Signs Pulse 75 03/14/24 13:47 BP 114/62 03/14/24 13:47 BMI result Body Mass Index 26.5 Const General: no acute distress and ill appearing (Chronically ill appearing) Nutritional Appearance: overweight Orientation/consciousness: patient oriented x3 Limitations: other limitations (on Home oxygen) HEENT Head: Yes normal to inspection Ears: hearing grossly normal bilaterally Mouth: Normal oral and palatal mucosa present Eyes Sclerae: sclerae normal Pupils: Equal, round and reactive pupils present Neck Neck: Yes normal visual inspection Chest Chest palpation & inspection: normal inspection of the chest Resp Auscultation: wheezes expiratory wheezes and diminished lung sounds Cardio Palpation: normal PMI Rate: regular rate Rhythm: regular rhythm Heart sounds: S1 normal heart sound present, S2 normal heart sound present and no murmurs GI Palpation (GI): Soft to palpation, nontender and No hepatosplenomegaly present Auscultation: normal bowel sounds Rectal Exam - Male: Yes deferred Skin General skin exam: no rashes or lesions noted Neuro General: patient oriented x3, gait normal and moves all extremities Cranial nerves: Yes Equal, round and reactive pupils present Psych Appearance: grossly normal Mental Status: mental status grossly normal Assessment & Plan Assessment & Plan (1) GERD without esophagitis: Code(s): K21.9 - Gastro-esophageal reflux disease without esophagitis Category: Medical (2) Hiatal hernia without gangrene or obstruction: Code(s): K44.9 - Diaphragmatic hernia without obstruction or gangrene Category: Medical (3) Esophageal stricture: Code(s): K22.2 - Esophageal obstruction Category: Medical (4) Cirrhosis of liver without ascites: Code(s): K74.60 - Unspecified cirrhosis of liver Category: Medical Plan 64 YM with Pulmonary nodules, COPD on home oxygen, smoker - 35 pack years, hypertension, hyperlipidemia, anxiety and bipolar disorder, 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 Patient reports having a Laparoscopic fundoplication for GERD several years ago. 07/24/2019 EGD showed a hiatal hernia, ulcerated mucosa from 34 to 36 cms with luminal narrowing and Grade 3 flap valve and a slipped fundal wrap seen on retroflexed examination of the cardia. Patient was advised to switch to pantoprazole 40 mg twice daily for erosive esophagitis - he prefers to continue taking Prilosec. (has tried different PPI in the past and Prilosec has been most effective). He was offered addition of Carafate - he refused indicating it was not helpful in the past. Patient is interested in surgery for management of GERD with erosive esophagitis. Pt was informed that surgery would carry increased risk because of advanced COPD. Pt was seen by Dr. Serrato in 02/15 regarding fundoplication and does not want to proceed with fundoplication at this point. Metoclopramide was ordered and unable to be prescribed due to a level 2 drug interaction with the invega the patient takes. Simethicone was prescribed at patient's request - to help him burp and was not very helpful. Patient complains of recurrent dysphagia to solids and sometimes to liquids (if he tries to drink water too fast). Pt had multiple EGDs with balloon dilation of esophageal stricture on 08/19 and 09/14/22, 09/26, 10/07, 10/14 and 11/11/22 REDUCING THE RISK OF LIVER PROGRESSION: patient was advised to completely avoid use of alcohol and lose weight. HCC SURVEILLANCE: the patient is at risk of developing hepatocellular carcinoma given the presence of cirrhosis and need 6 monthly imaging surveillance with either abdominal ultrasound (US) or multiphase cross-sectional imaging (CT or MRI). Last Abd US in November, had shown no focal liver lesions suspicious of HCC. He will be scheduled for follow-up liver ultrasound in 6 months for ongoing surveillance. VACCINATIONS: Pt does not have serological evidence of prior exposure to or vaccination against hepatitis a or hepatitis B. Given lack of serological evidence of immunity, he needs to undergo vaccination against both hepatitis a and hepatitis B (with a series of 3 doses at 0, 1 and 6 months). Patient should also remain up-to-date with all age-appropriate vaccinations including vaccination against pneumococcus. As we no longer have vaccines available in our Clinic, I request PCP to arrange this. SURVEILLANCE FOR GASTROESOPHAGEAL VARICES: No varices seen on past EGD. QUESTION OF LIVER TRANSPLANTATION: As pt has never had any hepatic decompensation, and continues to have good hepatic synthetic function with MELD Na score of 9, liver transplantation does not need to be considered at this time. Of note patient is not a candidate for Liver Tx due to advanced lung disease 05/04/23 Continues to have GERD and dysphagia Eats potatoes, peas, bananas, jello and maintaining his weight. Usually blenderizes the meats. Heartburn is a little better. Pt advised to continue to monitor his symptoms EGD can be scheduled if dysphagia gets worse (after anesthesia approval) 03/14/24 Schedule abdominal US in May, 2024 - pt requesting a complete US to evaluate spleen and kidneys FU in 6 months Orders: Orders US abdomen complete 05/29/24 K74.60 - Unspecified cirrhosis of liver Medications: Refilled ferrous sulfate 324 mg PO DAILY 90 days 90 tabs 1RF D64.9 - Anemia, unspecified Coding Level of Care Code Est Pt Level 4 (63959) Diagnoses GERD without esophagitis K21.9 Hiatal hernia without gangrene or obstruction K44.9 Esophageal stricture K22.2 Cirrhosis of liver without ascites K74.60 Time Spent (min) 23
[2024-03-14 13:47] VITALS: BP 114/62; PULSE 75; BMI 26.5
== END 2024-03-14 14:55 | disposition home or self-care (01) ==
PROVIDERS: PCP Registered Nurse; Visit Provider Internal Medicine Gastroenterology
DX: K21.9 Gastro-esophageal reflux disease without esophagitis (principal); K44.9 Diaphragmatic hernia without obstruction or gangrene; K22.2 Esophageal obstruction; K74.60 Unspecified cirrhosis of liver
CPT/HCPCS: 99214

== ENCOUNTER → 2024-03-14 13:37 | Outpatient (BNVA) | payer MEDICARE, MEDICAID, SELFPAY | PROVIDERS: PCP Registered Nurse; Visit Provider Internal Medicine Gastroenterology | DX: K21.9 Gastro-esophageal reflux disease without esophagitis (principal); K74.60 Unspecified cirrhosis of liver; K22.2 Esophageal obstruction; K44.9 Diaphragmatic hernia without obstruction or gangrene; J43.9 Emphysema, unspecified; R91.8 Other nonspecific abnormal finding of lung field; D64.9 Anemia, unspecified; Z99.81 Dependence on supplemental oxygen; Z87.891 Personal history of nicotine dependence | CPT/HCPCS: 99212 ==

== ENCOUNTER 2024-05-14 15:49 | Outpatient (AMB) | payer MEDICARE, MEDICAID, SELFPAY ==
[2024-05-14 15:59] VITALS: BP 102/68; PULSE 77; O2SAT 98; BMI 27.0
--- NOTE | 2024-05-14 15:59 | A.OFFVIS_ITS ---
Vital Signs 05/14/24 15:59 Height 5 ft 10 in Weight 188 lb 7.924 oz BMI 27.0 BP 102/68 Blood Pressure Location Lt brachial Position Sitting Pulse 77 Pulse Source Pulse Oximeter Pulse Oximetry (%) 98 Oxygen Delivery Method Room Air Intake Visit Reasons: COPD Intake Note: pt is here for follow up and is feeling better than the last visit. pt states that symbicort is not working and he felt better on Advair, can we please send and try for PA to be done. the symbicort just does not do the job for him, symbicort seems to not last till mid morning he will start to wheeze. Account Manager B2B Required: No Allergies No Known Allergies [No Known Allergies*] Allergy (Verified 05/14/24 16:30) Medication List - Last Reconciled 05/14/24 by Chirag Cordova MD albuterol sulfate 90 mcg/actuation (Ventolin HFA) 2 puffs inhalation Q4-6H PRN 30 days atorvastatin 20 mg PO BEDTIME clonazepam 1 mg PO BID 30 days dextroamphetamine-amphetamine 10 mg 1 tab PO DAILY ferrous sulfate 324 mg PO DAILY 90 days fluticasone propion-salmeterol 500-50 mcg/dose (Wixela Inhub) 1 inh inhalation BID 30 days gabapentin 1,200 mg PO BEDTIME gabapentin 600 mg PO BID ipratropium-albuterol 0.5 mg-3 mg(2.5 mg base)/3 mL 3 mL inhalation Q6-8H PRN lamotrigine 200 mg PO BID metoprolol tartrate 25 mg PO BID naloxone 4 mg/actuation (Narcan) 4 mg intranasal Q2M PRN omeprazole 40 mg PO TID 30 days paliperidone ER (Invega) 6 mg PO QAM paliperidone ER (Invega) 3 mg PO QNOON prednisone 5 mg PO BID 30 days sildenafil (Viagra) 100 mg PO DAILY PRN Do you need a note to return to daycare/school/sports/work: No HPI HPI COPD: Details: Jony 64 years old gentleman is here for his follow-up after 2 months. Since I told him to increase oxygen to 4 L/minute when he goes outdoors, he is feeling better. When he is at home he again turns it down to 3 or 2.5 L/minute. There has been no recent respiratory infection. His breathing is staying very stable. He Does have a mild intermittent cough He does not like to use Symbicort because it does not help . He say is he would like to have Advair 500-50 diskus , which he likes to use and it helps him more than anything else, [facility] Medical History Emphysema lung Hx of hepatic disease Bronchitis Closed head injury Soft tissue injury of right chest wall Hypoxia On beta mariano at home Anxiety Bronchitis Ascending aorta dilatation O2 dependent Personal history of nicotine dependence Pulmonary nodules Hypoxemia COPD (chronic obstructive pulmonary disease) Hiatal hernia without gangrene or obstruction GERD without esophagitis Mass of upper lobe of left lung History of drug abuse History of ETOH abuse Bipolar disorder Hyperlipidemia Hypertension Surgical History History of Achilles tendon repair History of endoscopy History of biopsy History of colonoscopy History of repair of hiatal hernia (~06/01/18) Family History Father History of heart attack Mother History of COPD Sister History of cancer Brother Hx of cancer of lung Social History Household Members: Significant Other Housing: House Do you presently have visiting nurse or other home services: No Alcohol intake: never Comment: refusing bed alarm Patient Tobacco Use Status: Former Tobacco user Tobacco use type: Cigarette Second Hand Smoke Exposure: No Advance Directives Date on File: 12/08/22 service: No Review of Systems Const All systems reviewed & are unremarkable except as noted in HPI and below Eyes Reports no additional complaints ENT Reports nasal congestion (Mild off and on) Card Denies chest pain, Denies irregular heart rhythm and Denies leg edema Resp Reports as per HPI GI Reports no additional complaints Reports no additional complaints Musc Reports no additional complaints Skin/Breast Reports system reviewed and no additional complaints, except as documented Neuro Reports no additional complaints Psych Reports anxiety and Reports other (Bipolar disorder, stable and controlled) Endo Reports no additional complaints Physical Exam Vital Signs: Last Vital Signs Pulse 77 05/14/24 15:59 BP 102/68 05/14/24 15:59 Pulse Ox 98 05/14/24 15:59 Oxygen Delivery Method Room Air 05/14/24 15:59 BMI result Body Mass Index 27.0 Const General: comfortable (But anxious), no acute distress, alert and awake Orientation/consciousness: patient oriented x3 HEENT Head: Yes normal to inspection General nose exam: No nasal polyps present and No nasal discharge present Face and sinus: Yes sinuses nontender Mouth: oropharynx normal Throat: Yes posterior oropharynx normal Eyes General: appearance normal, both eyes and all related structures Neck Neck: Yes normal visual inspection, Yes no lymphadenopathy, Yes trachea midline and Yes no JVD Thyroid: Thyroid normal Chest Chest palpation & inspection: normal inspection of the chest, normal palpation of entire chest wall and no tenderness Resp Other: Percussion note resonant, breath sounds are very distant and quiet. HE HAS SCATTERED EXPIRATORY WHEEZES AND A FEW CREPITATIONS OVER BOTH BASILAR AREAS. SAME USUAL . Cardio Palpation: normal PMI Rate: regular rate Rhythm: regular rhythm Heart sounds: no gallops and no murmurs GI Palpation (GI): Soft to palpation, nontender, No hepatosplenomegaly present and no masses Auscultation: normal bowel sounds Back/Spine/Pelvis Thoracic/Lumbar Spine: thoracic and lumbar spine normal to inspection and thoraco-lumbar ROM limited Skin General skin exam: no rashes or lesions noted Neuro General: patient oriented x3 and no focal motor deficits Cranial nerves: Yes CN's II-XII intact bilaterally Extrem General: Yes normal to inspection, Yes no clubbing, cyanosis or edema and Yes no calf tenderness Psych Appearance: grossly normal and disheveled (Slightly) Mental Status: other ( ) Speech and movement: Normal speech and movement present Assessment & Plan Assessment & Plan (1) COPD (chronic obstructive pulmonary disease): Comment: Advanced COPD , but doing as good as expected. CT SCAN of the chest showed extensive degree of pulmonary emphysema and fibrosis on both sides, along with traction bronchiectasis, and mediastinal lymphadenopathy. Code(s): J44.9 - Chronic obstructive pulmonary disease, unspecified Category: Medical Plan: Fluticasone-Salmetrol 500- 50 1 inhalation b.i.d.. Ipratropium-albuterol solution in the nebulizer Q 6 hours (TID and PRN ) Albuterol HFA 2 puffs Q 4-6 hours p.r.n. when outdoors Prednisone 5 mg daily to continue (2) O2 dependent: Comment: PATIENT HAS CHRONIC RESPIRATORY FAILURE WITH HYPOXEMIA, AND IS O2 DEPENDENT. Code(s): Z99.81 - Dependence on supplemental oxygen Category: Medical Plan: Continue O2 4 L/minute with POC And 3 L/minute at home with stationary concentrator (3) Anxiety: Comment: He is a known case of bipolar disorder and severe anxiety. Code(s): F41.9 - Anxiety disorder, unspecified Category: Medical Plan: Doing well at this time. Add a good positive talk with him . (4) Pulmonary nodules: Comment: (waxing/waning nodules b/l - new 1.1cm KAE nodule on 07/27/20 CT) but subsequent CT scan showed resolution. Nodule , 7 x 10 mm nodule in right upper lobe, being monitored closely. Code(s): R91.8 - Other nonspecific abnormal finding of lung field Category: Medical Plan: Repeat CT scan in the next few weeks. Medications: Refilled fluticasone propion-salmeterol 500-50 mcg/dose (Wixela Inhub) 1 inh inhalation BID 30 days 60 ea 5RF copd,severe Coding Level of Care Code Est Pt Level 3 (58762) Diagnoses COPD (chronic obstructive pulmonary disease) J44.9 O2 dependent Z99.81 Anxiety F41.9 Pulmonary nodules R91.8
== END 2024-05-14 16:24 | disposition home or self-care (01) ==
PROVIDERS: PCP Registered Nurse; Visit Provider Internal Medicine
DX: J44.9 Chronic obstructive pulmonary disease, unspecified (principal); Z99.81 Dependence on supplemental oxygen; F41.9 Anxiety disorder, unspecified; R91.8 Other nonspecific abnormal finding of lung field
CPT/HCPCS: 99213

== ENCOUNTER → 2024-05-14 15:49 | Outpatient (BNVA) | payer MEDICARE, MEDICAID, SELFPAY | PROVIDERS: PCP Registered Nurse; Visit Provider Internal Medicine | DX: J44.9 Chronic obstructive pulmonary disease, unspecified (principal); R91.8 Other nonspecific abnormal finding of lung field; F41.9 Anxiety disorder, unspecified; Z99.81 Dependence on supplemental oxygen | CPT/HCPCS: 99212 ==

== ENCOUNTER 2024-05-23 13:41 | Emergency (ER) | payer MEDICARE, MEDICAID, SELFPAY ==
--- NOTE | ~2024-05-23 | CT_ITS ---
EXAM: CT scan of the head and cervical spine. INDICATION: fall TECHNIQUE: A noncontrast CT scan was performed from the skull base to the vertex. A noncontrast CT scan of the cervical spine was performed from the base of the skull through T1 at 2.5 mm and 1.25 mm collimation. Coronal and sagittal reformats were obtained at the acquisition workstation. This CT examination was performed using dose optimization techniques as appropriate, variously including the following: *Automated exposure control *Adjustment of mA and/or kV according to patient size (this includes techniques or standardized protocols for targeted exams where dose is matched to indication/reason for exam; i.e. extremities or head) *Use of iterative reconstruction technique DLP: 635 and 353 mGy-cm COMPARISON: None FINDINGS: Head: There is no evidence of acute intracranial hemorrhage or territorial infarction. Riddle-white matter differentiation is preserved. No abnormal mass effect or midline shift. No extra-axial fluid collections. Symmetrical white matter changes most consistent with terminal supply white matter chronic lacunar ischemic/infarct involving the barron radiata and centrum semiovale. In addition, there is involvement of the striatocapsular regions consistent with involvement of the lenticular striate arteries as well. The ventricles and sulcal spaces are proportional without hydrocephalus. Proportional prominence of the ventricles and sulcal spaces. No acute osseous or soft tissue abnormalities. The mastoid air cells and visualized portions of the paranasal sinuses are well aerated. Cervical Spine: The atlantooccipital and atlantoaxial articulations remain well aligned. Straightening of the normal cervical lordosis. Otherwise, there is anatomic alignment of the vertebral bodies and posterior elements. No evidence of acute fracture or subluxation. The vertebral body heights and disc spaces are maintained. There is no prevertebral soft tissue swelling. The thyroid gland and remaining cervical soft tissues are normal in appearance. The lung apices demonstrate bullous changes Limited in overall visualization. CT/CT cervical spine wo IV con IMPRESSION: No acute intracranial pathology. No fracture subluxation cervical spine. Electronically signed by: Amaury Chung MD 05/23/2024 06:47 PM [facility]
--- NOTE | ~2024-05-23 | XR_ITS ---
EXAMINATION: XR RIBS, RIGHT CLINICAL INFORMATION: fall 2 days ago COMPARISON: None available. TECHNIQUE: PA chest, and 4 views of the right ribs were obtained. FINDINGS: There are minimally displaced fractures of the right anterolateral ninth, 10th, 11th ribs. No additional fractures seen. The cardiac, hilar, and mediastinal contours are normal. The aorta is calcified. Lungs demonstrate no evidence of pneumothorax. There is advanced COPD with stable foci of stellate scarring in the upper lobes bilaterally. No definitive effusions. XR/XR ribs RT min 3V w CXR1V IMPRESSION: 1. Minimally displaced fractures right anterolateral ninth, 10th, 11th ribs. 2. COPD, advanced, with stable stellate foci of scarring in both upper lobes. 3. No pneumothorax or effusion. Electronically signed by: Jean Garcia MD 05/23/2024 04:02 PM [facility]
--- NOTE | ~2024-05-23 | CT_ITS ---
EXAM: CT scan of the head and cervical spine. INDICATION: fall TECHNIQUE: A noncontrast CT scan was performed from the skull base to the vertex. A noncontrast CT scan of the cervical spine was performed from the base of the skull through T1 at 2.5 mm and 1.25 mm collimation. Coronal and sagittal reformats were obtained at the acquisition workstation. This CT examination was performed using dose optimization techniques as appropriate, variously including the following: *Automated exposure control *Adjustment of mA and/or kV according to patient size (this includes techniques or standardized protocols for targeted exams where dose is matched to indication/reason for exam; i.e. extremities or head) *Use of iterative reconstruction technique DLP: 635 and 353 mGy-cm COMPARISON: None FINDINGS: Head: There is no evidence of acute intracranial hemorrhage or territorial infarction. Riddle-white matter differentiation is preserved. No abnormal mass effect or midline shift. No extra-axial fluid collections. Symmetrical white matter changes most consistent with terminal supply white matter chronic lacunar ischemic/infarct involving the barron radiata and centrum semiovale. In addition, there is involvement of the striatocapsular regions consistent with involvement of the lenticular striate arteries as well. The ventricles and sulcal spaces are proportional without hydrocephalus. Proportional prominence of the ventricles and sulcal spaces. No acute osseous or soft tissue abnormalities. The mastoid air cells and visualized portions of the paranasal sinuses are well aerated. Cervical Spine: The atlantooccipital and atlantoaxial articulations remain well aligned. Straightening of the normal cervical lordosis. Otherwise, there is anatomic alignment of the vertebral bodies and posterior elements. No evidence of acute fracture or subluxation. The vertebral body heights and disc spaces are maintained. There is no prevertebral soft tissue swelling. The thyroid gland and remaining cervical soft tissues are normal in appearance. The lung apices demonstrate bullous changes Limited in overall visualization. CT/CT head/brain wo IV con IMPRESSION: No acute intracranial pathology. No fracture subluxation cervical spine. Electronically signed by: Amaury Chung MD 05/23/2024 06:47 PM [facility] [place]
[2024-05-23 14:26] VITALS: BP 116/73; PULSE 100; RESP 16; TEMP 37; O2SAT 96; BMI 26.5
--- NOTE | 2024-05-23 14:26 | ED.GENADULT ---
HPI - General Adult General Chief complaint: Fall Stated complaint: fall Time Seen by Provider: 05/23/24 16:18 Source: patient Limitations: no limitations History of Present Illness ED Provider: Montserrat Carmona PA-C HPI narrative: 64-year-old male with a history of COPD and emphysema on 2 L nasal cannula at baseline, ascending aorta enlargement, cirrhosis, GERD, esophageal stricture, ongoing tobacco abuse, presents with right-sided rib pain x2 days. Patient states he tripped and fell landing on his right side. Since he has had significant discomfort over the right lateral ribcage. Pain worse with inspiration and movement of the torso. Patient did strike his head, he did not lose consciousness, he does not use blood thinners. Related Data Home Medications ?Medication ?Instructions ?Recorded ?Confirmed naloxone 4 mg/actuation nasal 4 mg intranasal Q2M PRN Opioid 03/23/20 05/14/24 spray (Narcan) Overdose atorvastatin 20 mg tablet 20 mg PO BEDTIME 01/27/22 05/14/24 lamotrigine 200 mg tablet 200 mg PO BID 01/27/22 05/14/24 metoprolol tartrate 25 mg tablet 25 mg PO BID 01/27/22 05/14/24 paliperidone 3 mg tablet,extended 3 mg PO QNOON 01/27/22 05/14/24 release 24 hr (Invega) paliperidone 6 mg tablet,extended 6 mg PO QAM 01/27/22 05/14/24 release 24 hr (Invega) sildenafil 100 mg tablet (Viagra) 100 mg PO DAILY PRN Sexual Activity 01/27/22 05/14/24 gabapentin 600 mg tablet 1,200 mg PO BEDTIME 12/07/22 05/14/24 dextroamphetamine-amphetamine 10 1 tab PO DAILY 03/09/23 05/14/24 mg tablet gabapentin 600 mg tablet 600 mg PO BID 05/02/23 05/14/24 ipratropium 0.5 mg-albuterol 3 mg 3 ml inhalation Q6-8H PRN wheezing 08/10/23 05/14/24 (2.5 mg base)/3 mL nebulization soln Previous Rx's ?Medication ?Instructions ?Recorded clonazepam 1 mg tablet 1 mg PO BID ANXIETY 30 days #60 08/31/23 tabs albuterol sulfate 90 mcg/actuation 2 puff inhalation Q4-6H PRN 02/09/24 aerosol inhaler (Ventolin HFA) shortness of breath or wheezing 30 days #8.5 grams ferrous sulfate 324 mg (65 mg 324 mg PO DAILY 90 days #90 tabs 03/14/24 iron) tablet,delayed release prednisone 5 mg tablet 5 mg PO BID ADVANCED 04/08/24 COPD/BRONCHITIS 30 days #60 tabs fluticasone 500 mcg-salmeterol 50 1 inh inhalation BID copd,severe 05/14/24 mcg/dose blistr powdr for 30 days #60 ea inhalation (Wixela Inhub) omeprazole 40 mg capsule,delayed 40 mg PO TID 30 days #90 caps 05/20/24 release gabapentin 100 mg capsule 100 mg PO TID #15 caps 05/23/24 oxycodone 5 mg tablet 5 mg PO Q6H PRN pain #20 tabs 05/23/24 Allergies Allergy/AdvReac Type Severity Reaction Status Date / Time No Known Allergies Allergy Verified 05/23/24 14:30 [No Known Allergies*] Review of Systems Review of Systems: Yes all other systems are reviewed and are negative Constitutional: Constitutional: Denies fatigue and Denies fever(s) Cardiovascular: Cardiovascular: Reports chest pain and Reports dyspnea Respiratory: Respiratory: Denies cough, Reports dyspnea and Denies wheezing Gastrointestinal: Gastrointestinal: Denies abdominal pain, Denies nausea and Denies vomiting Endocrine: Endocrine: Denies fatigue Allergic/Immunologic: Allergic/Immunologic: Denies wheezing PMFSH Past Medical History Attestation statement: The following information was validated with the patient. Medical History Emphysema lung Hx of hepatic disease Bronchitis Closed head injury Soft tissue injury of right chest wall Hypoxia On beta mariano at home Anxiety Bronchitis Ascending aorta dilatation O2 dependent Personal history of nicotine dependence Pulmonary nodules Hypoxemia COPD (chronic obstructive pulmonary disease) Hiatal hernia without gangrene or obstruction GERD without esophagitis Mass of upper lobe of left lung History of drug abuse History of ETOH abuse Bipolar disorder Hyperlipidemia Hypertension Surgical History History of Achilles tendon repair History of endoscopy History of biopsy History of colonoscopy History of repair of hiatal hernia (~06/01/18) Family History Family History Father History of heart attack Mother History of COPD Sister History of cancer Brother Hx of cancer of lung Social History Social History Household Members: Significant Other Housing: House Do you presently have visiting nurse or other home services: No Alcohol intake: never Comment: refusing bed alarm Patient Tobacco Use Status: Former Tobacco user Tobacco use type: Cigarette Smoked in Last 30 Days: No Second Hand Smoke Exposure: No Use of substances other than those prescribed or required for medical reasons: No Advance Directives: No Advance Directives Information Provided: No Advance Directives Date on File: 12/08/22 Do you have a plan to hurt others: No Plan service: No Physical Exam ED Vital Signs: Vital Signs - 24 hr 05/23/24 14:26 05/23/24 16:51 05/23/24 17:57 Temperature 98.6 F 98.2 F Pulse Rate 100 90 Respiratory Rate 16 22 H 16 Blood Pressure 116/73 112/72 Pulse Oximetry 96 95 Oxygen Delivery Method Room Air Nasal Cannula Oxygen Flow Rate 3 05/23/24 19:13 05/23/24 21:03 Temperature 97.9 F Pulse Rate 80 83 Respiratory Rate 16 16 Blood Pressure 116/69 124/74 Pulse Oximetry 96 96 Oxygen Delivery Method Nasal Cannula Nasal Cannula Oxygen Flow Rate 3 3 BMI result Body Mass Index 26.5 Const Other: Alert, overall appears older than stated age, no sign of head trauma on exam Orientation/consciousness: patient oriented x3 Neck Other: Soft supple no midline tenderness Chest Other: Posterior right thoracic region with ecchymosis that is old in appearance, no [place] sign, no ecchymosis or deformity noted over left lateral chest wall on the right Resp Other: Nonlabored respirations, lungs clear to auscultation no wheezing, poor inspiratory effort Cardio Other: Normal peripheral perfusion GI Other: Abdomen is soft, nondistended nontender no guarding Skin Other: Warm dry no rash Neuro General: patient oriented x3, no focal motor deficits and CN's II-XI intact bilaterally Psych Other: Calm cooperative Course Course Course Narrative: RME, this is a rapid medical exam performed by Curtis Hodges please refer to primary provider for complete H&P- 64-year-old male past medical history significant for COPD on chronic oxygen, liver cirrhosis, GERD presents for evaluation of right flank pain. He reports falling 2 days ago after a door handle that he was holding onto broke off. He struck his head but did not lose consciousness. Plan for labs, EKG, imaging. Reevaluation(s) Reevaluation #1: IS 1500, we will send with him, we will advise he needs to follow up with his primary care provider Medications Administered Discontinued Medications Generic Name Dose Route Start Last Admin Trade Name Juvenal PRN Reason Stop Dose Admin Gabapentin 100 mg 05/23/24 16:36 05/23/24 16:52 Gabapentin 100 Mg Capsule PO 05/23/24 16:37 100 mg ONCE ONE Administration Ketorolac Tromethamine 15 mg 05/23/24 16:36 05/23/24 16:51 Ketorolac Tromethamine 15 Mg/Ml Vial IVPUSH 05/23/24 16:37 15 mg ONCE ONE Administration Methocarbamol 750 mg 05/23/24 20:23 05/23/24 21:01 Methocarbamol 750 Mg Tablet PO 05/23/24 20:24 750 mg ONCE ONE Administration Morphine Sulfate 4 mg 05/23/24 16:36 05/23/24 16:51 Morphine Sulfate 4 Mg/Ml Cartridge IVPUSH 05/23/24 16:37 4 mg ONCE ONE Administration Protocol Oxycodone HCl 10 mg 05/23/24 17:37 05/23/24 17:58 Oxycodone Hcl Immed Release 5 Mg Tablet PO 05/23/24 17:38 10 mg ONCE ONE Administration Medical Decision Making Medical Decision Making [facility] Narrative: 64-year-old male with a history of COPD and emphysema on 2 L nasal cannula at baseline, ascending aorta enlargement, cirrhosis, GERD, esophageal stricture, ongoing tobacco abuse, presents with right-sided rib pain x2 days. Patient states he tripped and fell landing on his right side. Since he has had significant discomfort over the right lateral ribcage. Pain worse with inspiration and movement of the torso. Patient did strike his head, he did not lose consciousness, he does not use blood thinners. Problem: Age, COPD, continued tobacco abuse, cirrhosis History: Per patient I have considered the following differential diagnoses: Intra-abdominal bleeding, rib fracture, chest wall contusion, pneumothorax, pneumonia, intracranial hemorrhage, cervical spine injury Plan: Screening labs including imaging of the chest brain and cervical spine were ordered from triage, he does have 3 rib fractures. We will order incentive spirometry, we will give morphine, gabapentin and Toradol for his discomfort. I have low suspicion for acute intra-abdominal bleeding given his H&H are stable, and his abdominal exam was benign. I do not feel he requires a dedicated CT scan of the abdomen. He is not altered, he is neurologically intact, he is not actively vomiting to suggest an intracranial hemorrhage. He also has no midline tenderness of the cervical spine he has full range of motion, the incident occurred 2 days ago, doubtful he has an injury. I have independently reviewed the following tests: Labs: Stable pancytopenia, no electrolyte abnormality, LFTs are at his baseline. CT/CT cervical spine wo IV con IMPRESSION: No acute intracranial pathology. No fracture subluxation cervical spine. Electronically signed by: Amaury Chung MD 05/23/2024 06:47 PM EST RP CXR: XR/XR ribs RT min 3V w CXR1V IMPRESSION: 1. Minimally displaced fractures right anterolateral ninth, 10th, 11th ribs. 2. COPD, advanced, with stable stellate foci of scarring in both upper lobes. 3. No pneumothorax or effusion. Electronically signed by: Jean Garcia MD 05/23/2024 04:02 PM EST RP Lab Data 05/23/24 14:46 05/23/24 14:46 Labs: Lab Results 05/23/24 05/23/24 05/23/24 Range/Units 14:45 14:46 17:26 WBC 4.4 L (4.8-10.8) X10*3/uL RBC 3.59 L (4.60-5.80) X10*6/uL Hgb 11.9 L (14.0-18.0) g/dl Hct 36.3 L (42.0-52.0) % MCV 101.1 H (80.0-98.0) fL MCH 33.1 H (27.0-33.0) pg MCHC 32.8 (31.0-36.0) g/dl RDW 17.1 H (11.0-16.0) % Plt Count 63 L D (160-400) X10*3/uL MPV TNP Immature Gran % (Auto) 4.1 H (0.0-0.4) % Neut % (Auto) 23.3 L (45-73) % Lymph % (Auto) 8.0 L (20-40) % Spencer % (Auto) 64.4 H (2-11) % Eos % (Auto) 0.0 (0-4) % Baso % (Auto) 0.2 (0-2) % Lymph # (Auto) 0.4 L (1.2-4.9) X10*3/uL Spencer # (Auto) 2.8 H (0.1-1.2) X10*3/uL Eos # (Auto) 0.0 (0.0-0.4) X10*3/uL Baso # (Auto) 0.0 (0.0-0.2) X10*3/uL Abs Immat Gran (auto) 0.18 H (0.00-0.03) X10*3/uL Absolute Neuts (auto) 1.0 L (2.0-8.3) x10*3/uL Absolute Nucleated RBC 0.000 (0.0-0.012) X10*3/uL Nucleated RBC % (auto) 0.0 (0.0-0.2) /100WBC Smear Tech's Comments VERIFIED PT 15.6 H (10.9-12.4) SEC INR 1.3 H (0.9-1.1) Sodium 136 (135-145) mmol/L Potassium 3.8 (3.3-5.1) mmol/L Chloride 104 (96-108) mmol/L Carbon Dioxide 25 (22-29) mmol/L Anion Gap 11 L (12-20) BUN 8 L (9-16) mg/dL Creatinine 0.85 (0.5-1.4) mg/dL Estim Creat Clear Calc 88.2 Estimated GFR > 60 Random Glucose 155 H (60-115) mg/dL Calcium 8.4 (8.4-10.2) mg/dL Magnesium 2.1 (1.6-2.6) mg/dL Total Bilirubin 1.8 H (0.0-1.0) mg/dL AST 18 (5-37) U/L ALT 15 (0-40) U/L Alkaline Phosphatase 74 (39-117) U/L Troponin I High Sens < 2.7 D (<3.5-35.0) ng/L B-Natriuretic Peptide 135 H (<100) pg/mL Total Protein 7.1 (6.5-8.0) g/dL Albumin 3.8 (3.5-5.0) g/dL Lipase 16 (8-78) U/L Urine Color Dark Yellow Urine Appearance Clear Urine pH 5.5 (5.0-9.0) Ur Specific [place] 1.020 (1.005-1.025) Urine Protein Trace (Neg-Trace) mg/dL Urine Glucose (UA) Negative (Negative) mg/dL Urine Ketones Trace (Negative) mg/dL Urine Blood Negative (Negative) Urine Nitrite Negative (Negative) Ur Leukocyte Esterase Trace H (Negative) Urine RBC 3-5 H (0-2) /HPF Urine WBC 0-5 (0-5) /HPF Ur Squamous Epith Cells 0-2 (0-2) /HPF Urine Bacteria None Seen (None Seen) Hyaline Casts 3-5 (0-2) /LPF Ethyl Alcohol < 10 mg/dL Influenza Type A (PCR) NEGATIVE (Negative) Influenza Type B (PCR) NEGATIVE (Negative) RSV RNA Qual (PCR) NEGATIVE (Negative) SARS-CoV-2 RNA (RT-PCR) NEGATIVE (Negative) Discharge Plan Discharge Clinical Impression: Fracture of rib of right side Patient Disposition: Home, Self-Care Instructions: How to Use an Incentive Spirometer (ED), Rib Fracture (ED) Additional Instructions: You were found to have 3 rib fractures, of the 9th, 10th and the 11th ribs on the right. You need to use the incentive spirometry multiple times a day, to help prevent the onset of pneumonia. The CT scan of your brain and cervical spine were normal, you had no lab abnormalities. Take the gabapentin as directed, use the oxycodone as needed for breakthrough pain, take the ibuprofen as directed. To note, while taking the oxycodone, you need to use a stool softener such as Colace, and maybe implement the use of MiraLax every other day, to help prevent constipation. You can purchase these medications [id number]. Prescriptions: New gabapentin 100 mg capsule 100 mg PO TID Qty: 15 0RF oxycodone 5 mg tablet 5 mg PO Q6H PRN (Reason: pain) Qty: 20 0RF Rx Instructions: Partial Fill upon patient request. No Action albuterol sulfate [Ventolin HFA] 90 mcg/actuation HFA aerosol inhaler 2 puff inhalation Q4-6H PRN (Reason: shortness of breath or wheezing) 30 Days Qty: 8.5 2RF prednisone 5 mg tablet 5 mg PO BID 30 Days Qty: 60 3RF omeprazole 40 mg capsule,delayed release(DR/EC) 40 mg PO TID 30 Days Qty: 90 3RF gabapentin 600 mg tablet 1,200 mg PO BEDTIME ipratropium-albuterol 0.5 mg-3 mg(2.5 mg base)/3 mL solution for nebulization 3 ml inhalation Q6-8H PRN (Reason: wheezing) Narcan 4 mg/actuation spray,non-aerosol 4 mg intranasal Q2M PRN (Reason: Opioid Overdose) Rx Instructions: spray 1 dose into ONE nostril; alternate nostrils w each dose until help arrives metoprolol tartrate 25 mg tablet 25 mg PO BID paliperidone [Invega] 6 mg tablet extended release 24hr 6 mg PO QAM paliperidone [Invega] 3 mg tablet extended release 24hr 3 mg PO QNOON sildenafil [Viagra] 100 mg tablet 100 mg PO DAILY PRN (Reason: Sexual Activity) lamotrigine 200 mg tablet 200 mg PO BID atorvastatin 20 mg tablet 20 mg PO BEDTIME gabapentin 600 mg tablet 600 mg PO BID dextroamphetamine-amphetamine 10 mg tablet 1 tab PO DAILY fluticasone propion-salmeterol [Wixela Inhub] 500-50 mcg/dose blister with device 1 inh inhalation BID 30 Days Qty: 60 5RF clonazepam 1 mg tablet 1 mg PO BID 30 Days Qty: 60 2RF ferrous sulfate 324 mg (65 mg iron) tablet,delayed release (DR/EC) 324 mg PO DAILY 90 Days Qty: 90 1RF Print Language: Romanian
--- NOTE | 2024-05-23 14:27 | ECG_ITS ---
Test Reason : pain Blood Pressure : / mmHG Vent. Rate : 096 BPM Atrial Rate : 096 BPM P-R Int : 174 ms QRS Dur : 082 ms QT Int : 374 ms P-R-T Axes : 068 -18 047 degrees QTc Int : 472 ms Normal sinus rhythm Nonspecific ST and T wave abnormality Abnormal ECG When compared with ECG of 07-DEC-2022 15:52, No significant change was found Referred By: Nahum Hodges Electronically Signed By:ESTER JJ MD
[2024-05-23 15:01] LABS: INTERNATIONAL NORM RATIO 1.3 (0.9-1.1); Prothrombin Time 15.6 SEC (10.9-12.4)
[2024-05-23 15:13] LABS: Alanine Aminotransferase 15 U/L (0-40); Albumin Level 3.8 g/dL (3.5-5.0); Alkaline Phosphatase 74 U/L (39-117); Anion Gap 11 (12-20); Aspartate Amino Transferase 18 U/L (5-37); Basophils Percent Auto 0.2 % (0-2); Bilirubin Total 1.8 mg/dL (0.0-1.0); Blood Urea Nitrogen 8 mg/dL (9-16); Calcium 8.4 mg/dL (8.4-10.2); Carbon Dioxide 25 mmol/L (22-29); Chloride 104 mmol/L (96-108); Creatinine Clr Calc Pharmacy 88.2; Estimated Glomerular Filt Rate > 60; Glucose Random 155 mg/dL (60-115); Hematocrit 36.3 % (42.0-52.0); Hemoglobin 11.9 g/dl (14.0-18.0); Imm Gran Abs Auto 0.18 X10*3/uL (0.00-0.03); Imm Gran Pct Auto 4.1 % (0.0-0.4); Lipase 16 U/L (8-78); Lymphocytes Absolute Auto 0.4 X10*3/uL (1.2-4.9); MANUAL DIFF FLAG SCAN; Mean Corpuscular HGB Conc 32.8 g/dl (31.0-36.0); Mean Corpuscular Hemoglobin 33.1 pg (27.0-33.0); Mean Corpuscular Volume 101.1 fL (80.0-98.0); Monocytes Absolute Auto 2.8 X10*3/uL (0.1-1.2); Monocytes Percent Auto 64.4 % (2-11); Neutrophils Percent Auto 23.3 % (45-73); PLT CLUMP 1; Potassium 3.8 mmol/L (3.3-5.1); Red Blood Count 3.59 X10*6/uL (4.60-5.80); Red Cell Distribution Width 17.1 % (11.0-16.0); SCAN SMEAR FLAG 1; Sodium 136 mmol/L (135-145); Total Protein 7.1 g/dL (6.5-8.0)
[2024-05-23 15:14] LABS: White Blood Count 4.4 X10*3/uL (4.8-10.8)
[2024-05-23 15:19] LABS: Troponin-I High Sensitivity < 2.7 ng/L (<3.5-35.0)
[2024-05-23 15:34] LABS: Platelet Count 63 X10*3/uL (160-400)
[2024-05-23 15:38] LABS: SLIDE REVIEW VERIFIED
[2024-05-23 15:38] LABS: Influenza A PCR NEGATIVE (Negative); Influenza B PCR NEGATIVE (Negative); Resp Syncy Virus RNA Qual PCR NEGATIVE (Negative); SARS COV2 PCR INHOUSE NEGATIVE (Negative)
[2024-05-23 16:51] VITALS: RESP 22
[2024-05-23] MEDS: Ketorolac Tromethamine 15 MG/ML VIAL IVPUSH (16:51)
[2024-05-23] MEDS: Morphine Sulfate 4 MG/ML CARTRIDGE IVPUSH (16:51)
[2024-05-23] MEDS: Gabapentin 100 MG CAPSULE PO (16:52)
--- NOTE | 2024-05-23 16:52 | PC.NURSE ---
20gIV placed in the left AC - medicated per provider order. effectiveness pending. pt waiting to go to CT at this time. plan of care ongoing. call naranjo placed within reach.
[2024-05-23 16:55] LABS: Ethanol < 10 mg/dL; Magnesium 2.1 mg/dL (1.6-2.6)
[2024-05-23 17:38] LABS: Appearance Urine Clear; Color Urine Dark Yellow; Glucose Urine UA Negative (Negative); Leukocyte Esterase Urine Trace (Negative); Nitrite Urine Negative (Negative); PH 5.5 (5.0-9.0); UMIC TRIGGER UACC YES; Urine Blood Negative (Negative); Urine Ketones Trace mg/dL (Negative); Urine Protein Trace mg/dL (Neg-Trace)
[2024-05-23 17:57] VITALS: BP 112/72; PULSE 90; RESP 16; TEMP 36.8; O2SAT 95
[2024-05-23] MEDS: oxyCODONE HCl Immed Release 5 MG TABLET 10 MG PO (17:58)
--- NOTE | 2024-05-23 17:59 | PC.NURSE ---
pt verbalizing pain level decreased s/p previous medication administration but pain level remains a 7/10. medication administered per provider order. pt provided w/ instructions in regards to incentive spirometry. +teachback applied.
[2024-05-23 18:18] LABS: Bacteria Urine None Seen (None Seen); Squamous Epithelial Cell Urine 0-2 /HPF (0-2); WBC Urine 0-5 /HPF (0-5)
[2024-05-23 18:23] LABS: B Type Natriuretic Peptide 135 pg/mL (<100)
[2024-05-23 19:13] VITALS: BP 116/69; PULSE 80; RESP 16; TEMP 36.6; O2SAT 96
[2024-05-23] MEDS: methocarbamoL 750 MG TABLET PO (21:01)
[2024-05-23 21:03] VITALS: BP 124/74; PULSE 83; RESP 16; O2SAT 96
[2024-05-23 22:17] VITALS: BP 124/74; PULSE 83; RESP 16; TEMP 36.9; O2SAT 96
== END 2024-05-23 22:18 | disposition home or self-care (01) ==
PROVIDERS: Physician Assistant; Physician Assistant Medical; Emergency Provider Emergency Medicine; PCP Registered Nurse
DX: S22.41XA Multiple fractures of ribs, right side, initial encounter for closed fracture (principal); W18.39XA Other fall on same level, initial encounter; I10 Essential (primary) hypertension; E78.5 Hyperlipidemia, unspecified; R06.02 Shortness of breath; J44.9 Chronic obstructive pulmonary disease, unspecified; Z99.81 Dependence on supplemental oxygen; Z87.891 Personal history of nicotine dependence; Z03.818 Encounter for observation for suspected exposure to other biological agents ruled out; Y93.9 Activity, unspecified; Y92.9 Unspecified place or not applicable; Y99.9 Unspecified external cause status; Z79.899 Other long term (current) drug therapy; Z79.02 Long term (current) use of antithrombotics/antiplatelets
CPT/HCPCS: 0241U; 36415; 70450; 71101; 72125; 80053; 80307; 81001; 83690; 83735; 83880; 84484; 85025; 85610; 93005; 94010; 96374; 96375; 99284; 99285; J1885; J2270

== ENCOUNTER → 2024-05-23 14:26 | Outpatient (BNV) | payer MEDICARE, MEDICAID, SELFPAY | PROVIDERS: Emergency Provider Emergency Medicine; PCP Registered Nurse; Visit Provider Radiology Diagnostic Radiology | DX: S22.41XD Multiple fractures of ribs, right side, subsequent encounter for fracture with routine healing (principal); J44.9 Chronic obstructive pulmonary disease, unspecified | CPT/HCPCS: 71101 ==

== ENCOUNTER → 2024-05-23 14:27 | Outpatient (BNV) | payer MEDICARE, MEDICAID, SELFPAY | PROVIDERS: Emergency Provider Emergency Medicine; PCP Registered Nurse; Visit Provider Internal Medicine Cardiovascular Disease | DX: R94.31 Abnormal electrocardiogram [ECG] [EKG] (principal) | CPT/HCPCS: 93010 ==

== ENCOUNTER 2024-05-31 15:55 | Outpatient (REF) | payer MEDICARE, MEDICAID, SELFPAY ==
--- NOTE | ~2024-05-31 | US_ITS ---
EXAMINATION: US ABDOMEN HISTORY: K74.60 - Unspecified cirrhosis of liver TECHNIQUE: Real-time grayscale ultrasound imaging of the abdomen was performed and images were reviewed. Limited color Doppler of the portal and hepatic veins was performed. COMPARISON: Comparison is made with the prior examination dated 11/27/2023. FINDINGS: Liver: The liver is normal in size and demonstrates homogeneous echotexture. No focal mass or intrahepatic biliary ductal dilatation is identified. Color doppler is normal in the portal and hepatic veins. Gallbladder and biliary tree: The gallbladder is unremarkable, without evidence of calculi, wall thickening, or pericholecystic fluid. There is no sonographic Chandler sign. The common bile duct is normal in caliber measuring 4 mm. Kidneys: The right kidney measures 11.8 cm in length. The left kidney measures 10.5 cm in length. The upper poles are not well visualized. The kidneys are otherwise unremarkable, without evidence of masses, hydronephrosis, or calculi. Pancreas: The pancreatic head is unremarkable in appearance. The remainder of the pancreas is obscured by bowel gas. Spleen: Spleen is enlarged, measuring 16.2 cm in length. Abdominal aorta and inferior vena cava: The visualized portions of the abdominal aorta and inferior vena cava are normal in caliber. There is no free fluid in the abdomen. US/US abdomen complete IMPRESSION: Splenomegaly. Limited visualization of the pancreas. Otherwise unremarkable abdominal ultrasound. Electronically signed by: Sadiq Troncoso MD 06/03/2024 08:21 AM [facility] [place]
== END 2024-05-31 15:56 | disposition home or self-care (01) ==
LOC: HO.US 15:55
PROVIDERS: PCP Registered Nurse; Visit Provider Internal Medicine Gastroenterology
DX: K74.60 Unspecified cirrhosis of liver (principal)
CPT/HCPCS: 76700

== ENCOUNTER → 2024-05-31 16:00 | Outpatient (BNV) | payer MEDICARE, MEDICAID, SELFPAY | PROVIDERS: PCP Registered Nurse; Visit Provider Radiology Diagnostic Radiology | DX: R16.1 Splenomegaly, not elsewhere classified (principal) | CPT/HCPCS: 76700 ==

== ENCOUNTER 2024-06-11 16:41 | Outpatient (REF) | payer MEDICARE, MEDICAID, SELFPAY ==
--- NOTE | ~2024-06-11 | CT_ITS ---
CLINICAL HISTORY: R91.8 - Other nonspecific abnormal finding of lung field CT chest without contrast Comparison: CR/SR - XR CHEST 2V - 07/24/23 17:[address]/SC/SR - CT CHEST WO IV CON - 03/08/23 16:58 EDT Findings: The heart size is normal. Few calcified mediastinal lymph nodes. Thyroid gland is within normal limits. Hiatal hernia with fluid in the esophagus, similar to prior. Severe emphysema. Similar upper lobe predominant fibrotic changes given slight differences in lung expansion. Diffuse bronchial wall thickening with mucous plugging in the right lower lobe. No acute consolidation, pleural effusion or pneumothorax. Mild splenomegaly measuring 14 cm in the AP dimension. Subacute fractures of the right posterior 10th and 11th ribs. Additional chronic right rib fractures. Degenerative changes of the spine. IMPRESSION: 1. Subacute fractures of the right posterior 10th and 11th ribs. 2. Diffuse bronchial wall thickening with mucous plugging in right lower lobe. 3. Severe emphysema with stable upper lobe predominant fibrotic changes. 4. No acute consolidation, pleural effusion or pneumothorax. This document has been electronically signed by: Madeleine Acevedo MD on 06/11/2024 18:16:29
== END 2024-06-11 16:42 | disposition home or self-care (01) ==
LOC: HO.CT 16:41
PROVIDERS: PCP Registered Nurse; Visit Provider Internal Medicine
DX: R91.8 Other nonspecific abnormal finding of lung field (principal)
CPT/HCPCS: 71250

== ENCOUNTER → 2024-06-11 16:43 | Outpatient (BNV) | payer MEDICARE, MEDICAID, SELFPAY | PROVIDERS: PCP Registered Nurse; Visit Provider Radiology Diagnostic Radiology | DX: S22.41XA Multiple fractures of ribs, right side, initial encounter for closed fracture (principal); J43.9 Emphysema, unspecified | CPT/HCPCS: 71250 ==

== ENCOUNTER 2024-07-08 16:01 | Outpatient (AMB) | payer MEDICARE, MEDICAID, SELFPAY ==
[2024-07-08 16:05] VITALS: BP 112/62; PULSE 76; O2SAT 99; BMI 26.6
--- NOTE | 2024-07-08 16:05 | MHC.OFFVIS ---
Vital Signs 07/08/24 16:05 Height 5 ft 10 in Weight 185 lb 3.013 oz BMI 26.6 BP 112/62 Blood Pressure Location Lt brachial Position Sitting Pulse 76 Pulse Source Pulse Oximeter Pulse Oximetry (%) 99 Oxygen Delivery Method Nasal Cannula Oxygen Flow Rate 3 Intake Visit Reasons: COPD Intake Note: pt is here for follow up and states he is wheezing, broke 3 ribs on right side. Client Manager Required: No Allergies No Known Allergies [No Known Allergies*] Allergy (Verified 07/08/24 16:20) Medication List - Last Reconciled 07/08/24 by Chirag Cordova MD albuterol sulfate 90 mcg/actuation (Ventolin HFA) 2 puffs inhalation Q4-6H PRN 30 days atorvastatin 20 mg PO BEDTIME budesonide 0.5 mg (2 mL) inhalation BID 30 days clonazepam 1 mg PO BID 30 days dextroamphetamine-amphetamine 10 mg 1 tab PO DAILY ferrous sulfate 324 mg PO DAILY 90 days fluticasone propion-salmeterol 500-50 mcg/dose (Wixela Inhub) 1 inh inhalation BID 30 days gabapentin 1,200 mg PO BEDTIME gabapentin 100 mg PO TID gabapentin 600 mg PO BID ipratropium-albuterol 0.5 mg-3 mg(2.5 mg base)/3 mL 3 mL inhalation Q6-8H PRN lamotrigine 200 mg PO BID metoprolol tartrate 25 mg PO BID naloxone 4 mg/actuation (Narcan) 4 mg intranasal Q2M PRN omeprazole 40 mg PO TID 30 days oxycodone 5 mg PO Q6H PRN paliperidone ER (Invega) 6 mg PO QAM paliperidone ER (Invega) 3 mg PO QNOON prednisone 5 mg PO BID 30 days sildenafil (Viagra) 100 mg PO DAILY PRN Do you need a note to return to daycare/school/sports/work: No HPI HPI COPD: Details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facility] Medical History (Updated 07/08/24 @ 16:53 by Chirag Cordova MD) Rib fractures Emphysema lung Hx of hepatic disease Bronchitis Closed head injury Soft tissue injury of right chest wall Hypoxia On beta mariano at home Anxiety Bronchitis Ascending aorta dilatation O2 dependent Personal history of nicotine dependence Pulmonary nodules Hypoxemia COPD (chronic obstructive pulmonary disease) Hiatal hernia without gangrene or obstruction GERD without esophagitis Mass of upper lobe of left lung History of drug abuse History of ETOH abuse Bipolar disorder Hyperlipidemia Hypertension Surgical History History of Achilles tendon repair History of endoscopy History of biopsy History of colonoscopy History of repair of hiatal hernia (~06/01/18) Family History Father History of heart attack Mother History of COPD Sister History of cancer Brother Hx of cancer of lung Social History Household Members: Significant Other Housing: House Do you presently have visiting nurse or other home services: No Alcohol intake: never Comment: refusing bed alarm Patient Tobacco Use Status: Former Tobacco user Tobacco use type: Cigarette Second Hand Smoke Exposure: No Advance Directives Date on File: 12/08/22 service: No Review of Systems Const All systems reviewed & are unremarkable except as noted in HPI and below Eyes Reports no additional complaints ENT Reports nasal congestion (Mild off and on) Card Denies chest pain, Denies irregular heart rhythm and Denies leg edema Resp Reports as per HPI GI Reports no additional complaints Reports no additional complaints Musc Reports no additional complaints Skin/Breast Reports system reviewed and no additional complaints, except as documented Neuro Reports no additional complaints Psych Reports anxiety and Reports other (Bipolar disorder, stable and controlled) Endo Reports no additional complaints Physical Exam Vital Signs: Last Vital Signs Pulse 76 07/08/24 16:05 BP 112/62 07/08/24 16:05 Pulse Ox 99 02/10/25 16:05 Oxygen Delivery Method Nasal Cannula 07/08/24 16:05 Oxygen Flow Rate 3 07/08/24 16:05 BMI result Body Mass Index 26.6 Const General: comfortable (But anxious), no acute distress, alert and awake Orientation/consciousness: patient oriented x3 HEENT Head: Yes normal to inspection General nose exam: No nasal polyps present and No nasal discharge present Face and sinus: Yes sinuses nontender Mouth: oropharynx normal Throat: Yes posterior oropharynx normal Eyes General: appearance normal, both eyes and all related structures Neck Neck: Yes normal visual inspection, Yes no lymphadenopathy, Yes trachea midline and Yes no JVD Thyroid: Thyroid normal Chest Chest palpation & inspection: normal inspection of the chest, normal palpation of entire chest wall and tenderness (THERE IS MILD TENDERNESS OVER THE RIGHT LOWER COSTAL AREA, NO CREPITUS) Resp Other: Percussion note resonant, breath sounds are very distant and quiet. HE HAS SCATTERED EXPIRATORY WHEEZES AND A FEW CREPITATIONS OVER BOTH BASILAR AREAS. SAME USUAL . Cardio Palpation: normal PMI Rate: regular rate Rhythm: regular rhythm Heart sounds: no gallops and no murmurs GI Palpation (GI): Soft to palpation, nontender, No hepatosplenomegaly present and no masses Auscultation: normal bowel sounds Back/Spine/Pelvis Thoracic/Lumbar Spine: thoracic and lumbar spine normal to inspection and thoraco-lumbar ROM limited Skin General skin exam: no rashes or lesions noted Neuro General: patient oriented x3 and no focal motor deficits Cranial nerves: Yes CN's II-XII intact bilaterally Extrem General: Yes normal to inspection, Yes no clubbing, cyanosis or edema and Yes no calf tenderness Psych Appearance: grossly normal and disheveled (Slightly) Mental Status: other ( ) Speech and movement: Normal speech and movement present Results Reviewed Results Reviewed: I REVIEWED THE FINDINGS OF THE CHEST X-RAY AND CT SCAN WITH HIM Assessment & Plan Assessment & Plan (1) COPD (chronic obstructive pulmonary disease): Comment: Advanced COPD , but doing as good as expected. CT SCAN of the chest showed extensive degree of pulmonary emphysema and fibrosis on both sides, along with traction bronchiectasis, and mediastinal lymphadenopathy. Code(s): J44.9 - Chronic obstructive pulmonary disease, unspecified Category: Medical Plan: WIXELA 500-51 INHALATION B.I.D. BUDESONIDE 0.5 MG SOLUTION IN THE NEBULIZER B.I.D. IPRATROPIUM-ALBUTEROL SOLUTION IN THE UPDRAFT Q 6 HOURS WHILE AWAKE ALBUTEROL 2 PUFFS Q 4-6 HOURS P.R.N. FOR ACUTE DISTRESS ALSO CONTINUE PREDNISONE 5 MG DAILY, AT HIS INSISTENCE . PATIENT HAS BEEN TAKEN OFF SPIRIVA (2) Pulmonary nodules: Comment: (waxing/waning nodules b/l - new 1.1cm KAE nodule on 07/27/20 CT) but subsequent CT scan showed resolution. Nodule , 7 x 10 mm nodule in right upper lobe, being monitored closely. Code(s): R91.8 - Other nonspecific abnormal finding of lung field Category: Medical Plan: WILL CONTINUE TO MONITOR THE PULMONARY NODULES (3) Acute on chronic respiratory failure with hypoxemia: Comment: Patient has chronic respiratory failure with hypoxemia and has been treated with O2 supplementation, He gets acute exacerbation of his respiratory failure due to chest infections, Currently seems to be at his baseline. Advised to keep on using O2 2 L/minute when at rest and 3-4 L/minute when walking around. Code(s): J96.21 - Acute and chronic respiratory failure with hypoxia Category: Medical Plan: ABOVE (4) Rib fractures: Comment: RECENT NONDISPLACED RIB FRACTURES OF 9TH 10TH AND 11TH RIBS, DUE TO A FALL AT HOME. HE IS RECOVERING SLOWLY AND NOW PAIN HIS MINIMAL. Code(s): S22.49XA - Multiple fractures of ribs, unspecified side, initial encounter for closed fracture Category: Medical Plan: ADVISED TO TAKE ALL PRECAUTIONS AGAINST FALLING. DO DEEP BREATHING EXERCISES MUCH POSSIBLE. Coding Level of Care Code Est Pt Level 3 (10305) Diagnoses COPD (chronic obstructive pulmonary disease) J44.9 Pulmonary nodules R91.8 Acute on chronic respiratory failure with hypoxemia J96.21 Rib fractures S22.49XA
== END 2024-07-08 16:33 | disposition home or self-care (01) ==
PROVIDERS: PCP Registered Nurse; Visit Provider Internal Medicine
DX: J44.9 Chronic obstructive pulmonary disease, unspecified (principal); R91.8 Other nonspecific abnormal finding of lung field; J96.21 Acute and chronic respiratory failure with hypoxia; S22.49XA Multiple fractures of ribs, unspecified side, initial encounter for closed fracture
CPT/HCPCS: 99213

== ENCOUNTER → 2024-07-08 16:01 | Outpatient (BNVA) | payer MEDICARE, MEDICAID, SELFPAY | PROVIDERS: PCP Registered Nurse; Visit Provider Internal Medicine | DX: J44.9 Chronic obstructive pulmonary disease, unspecified (principal); J96.21 Acute and chronic respiratory failure with hypoxia; R91.8 Other nonspecific abnormal finding of lung field; S22.49XD Multiple fractures of ribs, unspecified side, subsequent encounter for fracture with routine healing | CPT/HCPCS: 99212 ==

== ENCOUNTER 2024-09-12 13:33 | Outpatient (AMB) | payer MEDICARE, MEDICAID, SELFPAY ==
--- NOTE | 2024-09-12 13:53 | A.OFFVIS_ITS ---
Vital Signs 09/12/24 13:54 Height 5 ft 10 in Weight 185 lb BMI 26.5 BP 97/58 L Blood Pressure Location Lt brachial Position Sitting Pulse 76 Pulse Oximetry (%) 95 Oxygen Delivery Method Nasal Cannula Comment with 3 litter of oxygen Intake Visit Reasons: 6 mo f/u cirrhosis of liver Intake Note: Patient 6 month follow up for Cirrhosis of liver without ascites and US result. Patient cc: Program Eligibility Specialist Required: No Accompanied by: Self / Same As Patient Allergies No Known Allergies [No Known Allergies*] Allergy (Verified 09/12/24 13:52) Medication List - Last Reconciled 09/12/24 by Melissa Handy MD albuterol sulfate 90 mcg/actuation (Ventolin HFA) 2 puffs inhalation Q4-6H PRN 30 days atorvastatin 20 mg PO BEDTIME budesonide 0.5 mg (2 mL) inhalation BID 30 days clonazepam 1 mg PO BID 30 days dextroamphetamine-amphetamine 10 mg 1 tab PO DAILY ferrous sulfate 324 mg PO DAILY 90 days fluticasone propion-salmeterol 250-50 mcg/dose 1 inh inhalation BID 30 days gabapentin 1,200 mg PO BEDTIME gabapentin 600 mg PO TID ipratropium-albuterol 0.5 mg-3 mg(2.5 mg base)/3 mL 3 mL inhalation Q6-8H PRN lamotrigine 200 mg PO BID metoprolol tartrate 25 mg PO BID naloxone 4 mg/actuation (Narcan) 4 mg intranasal Q2M PRN omeprazole 40 mg PO TID 30 days oxycodone 5 mg PO Q6H PRN paliperidone ER (Invega) 6 mg PO QAM paliperidone ER (Invega) 3 mg PO QNOON prednisone 5 mg PO BID 30 days sildenafil (Viagra) 100 mg PO DAILY PRN tiotropium-olodaterol 2.5-2.5 mcg/actuation (Stiolto Respimat) 2 puffs inhalation Q24H 30 days HPI HPI 6 mo f/u cirrhosis of liver: Details: GI CLINIC VISIT FOR THIS 64-YEAR-OLD MALE FOR FOLLOW-UP OF GERD AND DYSPHAGIA. 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 Lab studies revealed anemia and elevated liver enzymes- further workup needed for evaluation, obtaining FIT, labs to evaluate anemia and repeat LFTS including an US w elastography ? Patient has severe COPD- Request clearance from Pulm to determine risk vs benefit fro EGD. ? He also has multiple pulmonary nodules that do have an inflammatory type of appearance and behavior over serial CT scans. However to r/o an occult malignancy he will have a navigational bronchoscopy with biopsy of new and increasing pulmonary nodules in the left upper lobe by Dr. Nieves. ? TODAY'S VISIT Patient cc: Patient 6 month follow up for Cirrhosis of liver without ascites and US result. US results and lab results reviewed. Swallowing is a little better - has not been using the sweeping compound blender. Cuts the meat into small pieces Continues to have acid reflux and take Omeprazole three times a day. Drove to his appt today since his Fiance is working - advised to schedule his FU appt on a day when his Fiance is off and can drive him Complains of malodorous urine - UA ordered Lives with his Fiance 05/2024 ABD US SHOWED: Splenomegaly. Limited visualization of the pancreas. Otherwise unremarkable abdominal ultrasound. Intermittent dysphagia - reports overall improvement in dysphagia and has been tolerating PO diet. PAST VISITS: Had chicken pot pie yesterday and a potato got stuck and he had to regurgitate it. Advised to eat mashed potatoes/blendarized diet. Denies dysphagia today Continues to have GERD and dysphagia Eats potatoes, peas, bananas, jello and maintaining his weight. Usually blenderizes the meat. Heartburn is a little better. Complains of RUQ pain radiating laterally to the back Labs and US results reviewed with the patient Used to drink 1-2 beers a day and quitted 25 yrs ago Denies known family hx of liver disease. Complains of worsening dysphagia - eating regular food, jello and bananas Taking meat, potatoes for supper - pt advised to blenderize his food. Hospitalized at [facility] [place] 12/07 to 12/12/22 with pneumonia. Home O2 increased from 3 to 4L/m by NC and still having SOB on exertion. Dysphagia is better and able to eat bananas, beans, mashed potatoes and food does not come back up. Food can still get stuck at ? ? ? Patient cc: chronic GERD, Abdominal bloating, and some swallowing problems with solid food. ? ? Noted improvement in breathing and swallowing after last procedure and not after the most recent procedure. Noted improvement in dysphagia which lasted for a week. Pt notes recurrent dysphagia with solids and even pills. Noted bad heartburn when he ran out of Hyglos. Heartburn improved when he restarted taking it. Stopped smoking 5 yrs ago. PAST VISIT: Complains of intermittent dysphagia every other day predominently to solids - chicken, potatoes, meats and bread. Intermittent regurgitation. Also notes dysphagia with drinking water Weight is the same. ?Tried Simethicone and was not very helpful ? Continues to have heartburn symptoms. ? ? ? Acid reflux is really bad ? Notes regurgitation of food after eating. ? Taking Omeprazole 40 mg twice daily. ? Requesting a pill to help him burp. ? Took Carafate in the past and was not helpful. ? Pt is a PPD smoker- he quit 1 year ago ? he has COPD- oxygen dependant 3L, O2 sats range from 88-93% per pt report ? denies ETOH use- he used to drink heavily ? he uses Tylenol but denies NSAID ? Takes 40 mg Omeprazole for GERD QD- will increase this to BID ? Pt was seen by ENT - Inflammed vocal cords with a bow and two nodules. ? Nodules were non-cancerous. ? He was advised to continue taking medications for?GERD LABS IN [facility]: 04/15/19 H & H of 11 & 32.9, INR 1.2, ? Iron studies were suggestive of iron deficiency anemia ? Normal LFTs except to total bilirubin of 1.2. ? Serologies for celiac sprue were negative. ?IMAGING STUDIES: May, 2023 ABD US SHOWED: 1. Hepatic steatosis. 2. Small right pleural effusion. 01/25/23 ABD US SHOWED: 1. Changes of hepatic steatosis. Nonspecific moderate splenomegaly. 2. Liver elastography: Although measurements are suggestive of compensated advanced chronic liver disease, there is statistical variability of the sampling which decreases accuracy. 06/17 BARIUM SWALLOW SHOWED:? Laryngeal penetration with swallowing. No marco a aspiration seen. Small hiatal and paraesophageal hernias. Mild mucosal irregularity and narrowing of the distal thoracic esophagus concerning for a stricture. correlation with endoscopy recommended. Significant gastroesophageal reflux. ? 05/16 ABDOMINAL ULTRASOUND WITH ELASTOGRAPHY SHOWED: ? 1. Mildly echogenic liver suggesting hepatic steatosis. ? 2. Elastography: 1.51, this is compatible with mild to moderate fibrosis. ?ENDOSCOPIC STUDIES:11/11/22 EGD SHOWED: LARYNX: Scarring with thickening of vocal cords with healed ulcer seen on past EGD ESOPHAGUS: Focal ulceration at 34 to 36 cms with luminal narrowing - biopsies obtained.? Hiatal hernia 36 to 40 cms.? Balloon dilation was performed with 13.5 and 15 mm CRE balloon for 60 sec at each level. Triamcinolone 40 mg was injected into the stricture - 10 ml in each quadrant Plan: Repeat EGD with esophageal balloon dilation in 6 to 8 weeks Esophagus, stricture, biopsy: - Cardiac-type mucosa with moderate chronic active inflammation; no intestinal metaplasia seen. - No squamous epithelium seen. 01/2021 EGD SHOWED: LARYNX: scarring with thickening of vocal cords with healed ulcer seen on past EGD ESOPHAGUS: Focal ulceration at 34 to 36 cms with luminal narrowing - multiple biopsies were obtained and stricture dilated to 15 mm (45 F) with a CRE balloon.?Hiatal hernia 36 to 40 cms.?STOMACH: Mild gastric erythema. Biopsies were obtained. Grade 3 flap valve and slipped fundal wrap on retroflexed examination of the cardia. Plan:? Repeat EGD in 4 to 6 weeks for repeat dilation. 10/29/19 EGD SHOWED:? Larynx: Some scarring of vocal cords with healed ulcer seen on past EGD? Esophagus: Ulcerated mucosa from 34 to 36 cms with luminal narrowing - multiple biopsies were obtained. Hiatal hernia 36 to 40 cms. ? Stomach: Mild gastric erythema. Biopsies obtained on past EGD were negative for HP. ? Grade 3 flap valve and slipped fundal wrap seen on retroflexed examination of the cardia. ? Esophagus, stricture, biopsy: ? 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 ? - No dysplasia seen. ? - No fungi or viral changes seen. ? EGD 04/14 Dr. Mccloud- Benign 15mm ulceration of LES, moderate erosive esophagitis, short-segment Max's. ? [facility]15 [facility] Medical History (Updated 09/12/24 @ 14:53 by Melissa Handy MD) Rib fractures Emphysema lung Hx of hepatic disease Bronchitis Closed head injury Soft tissue injury of right chest wall Hypoxia On beta mariano at home Anxiety Bronchitis Ascending aorta dilatation O2 dependent Personal history of nicotine dependence Pulmonary nodules Hypoxemia COPD (chronic obstructive pulmonary disease) Hiatal hernia without gangrene or obstruction GERD without esophagitis Mass of upper lobe of left lung History of drug abuse History of ETOH abuse Bipolar disorder Hyperlipidemia Hypertension Surgical History History of Achilles tendon repair History of endoscopy History of biopsy History of colonoscopy History of repair of hiatal hernia (~06/01/18) Family History Father History of heart attack Mother History of COPD Sister History of cancer Brother Hx of cancer of lung Social History Household Members: Significant Other Housing: House Do you presently have visiting nurse or other home services: No Alcohol intake: never Comment: refusing bed alarm Patient Tobacco Use Status: Former Tobacco user Tobacco use type: Cigarette Second Hand Smoke Exposure: No Advance Directives Date on File: 12/08/22 service: No Review of Systems Const All systems reviewed & are unremarkable except as noted in HPI and below Physical Exam Vital Signs: Last Vital Signs Pulse 76 09/12/24 13:54 BP 97/58 L 09/12/24 13:54 Pulse Ox 95 09/12/24 13:54 Oxygen Delivery Method Nasal Cannula 09/12/24 13:54 BMI result Body Mass Index 26.5 Const General: no acute distress and ill appearing chronically Nutritional Appearance: overweight Orientation/consciousness: patient oriented x3 Limitations: other limitations (On home oxygen) HEENT Head: Yes normal to inspection Ears: hearing grossly normal bilaterally Eyes Sclerae: sclerae normal Pupils: Equal, round and reactive pupils present Neck Neck: Yes normal visual inspection Chest Chest palpation & inspection: normal inspection of the chest Resp Auscultation: diminished lung sounds Cardio Palpation: normal PMI Rate: regular rate Rhythm: regular rhythm Heart sounds: S1 normal heart sound present, S2 normal heart sound present and no murmurs GI Palpation (GI): Soft to palpation, nontender and No hepatosplenomegaly present Auscultation: normal bowel sounds Rectal Exam - Male: Yes deferred Skin General skin exam: no rashes or lesions noted Neuro General: patient oriented x3, gait normal and moves all extremities Cranial nerves: Yes Equal, round and reactive pupils present Psych Appearance: grossly normal Mental Status: mental status grossly normal Assessment & Plan Assessment & Plan (1) GERD without esophagitis: Code(s): K21.9 - Gastro-esophageal reflux disease without esophagitis Category: Medical (2) Hiatal hernia without gangrene or obstruction: Code(s): K44.9 - Diaphragmatic hernia without obstruction or gangrene Category: Medical (3) Esophageal stricture: Code(s): K22.2 - Esophageal obstruction Category: Medical (4) Cirrhosis of liver without ascites: Code(s): K74.60 - Unspecified cirrhosis of liver Category: Medical (5) Malodorous urine: Code(s): R82.90 - Unspecified abnormal findings in urine Category: Medical Plan 64 YM with Pulmonary nodules, COPD on home oxygen, smoker - 35 pack years, hypertension, hyperlipidemia, anxiety and bipolar disorder, 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 Patient reports having a Laparoscopic fundoplication for GERD several years ago. 07/24/2019 EGD showed a hiatal hernia, ulcerated mucosa from 34 to 36 cms with luminal narrowing and Grade 3 flap valve and a slipped fundal wrap seen on retroflexed examination of the cardia. Patient was advised to switch to pantoprazole 40 mg twice daily for erosive esophagitis - he prefers to continue taking Prilosec. (has tried different PPI in the past and Prilosec has been most effective). He was offered addition of Carafate - he refused indicating it was not helpful in the past. Patient is interested in surgery for management of GERD with erosive e sophagitis. Pt was informed that surgery would carry increased risk because of advanced COPD. Pt was seen by Dr. Serrato in 02/15 regarding fundoplication and does not want to proceed with fundoplication at this point. Metoclopramide was ordered and unable to be prescribed due to a level 2 drug interaction with the invega the patient takes. Simethicone was prescribed at patient's request - to help him burp and was not very helpful. Patient complains of recurrent dysphagia to solids and sometimes to liquids (if he tries to drink water too fast). Pt had multiple EGDs with balloon dilation of esophageal stricture on 08/19 and 09/14/22, 09/26, 10/07, 10/14 and 11/11/22 REDUCING THE RISK OF LIVER PROGRESSION: patient was advised to completely avoid use of alcohol and lose weight. HCC SURVEILLANCE: the patient is at risk of developing hepatocellular carcinoma given the presence of cirrhosis and need 6 monthly imaging surveillance with either abdominal ultrasound (US) or multiphase cross-sectional imaging (CT or MRI). Last Abd US in November, had shown no focal liver lesions suspicious of HCC. He will be scheduled for follow-up liver ultrasound in 6 months for ongoing surveillance. VACCINATIONS: Pt does not have serological evidence of prior exposure to or vaccination against hepatitis A or hepatitis B. Given lack of serological evidence of immunity, he needs to undergo vaccination against both hepatitis a and hepatitis B (with a series of 3 doses at 0, 1 and 6 months). Patient should also remain up-to-date with all age-appropriate vaccinations in cluding vaccination against pneumococcus. As we no longer have vaccines available in our Clinic, I request PCP to arrange this. SURVEILLANCE FOR GASTROESOPHAGEAL VARICES: No varices seen on past EGD. QUESTION OF LIVER TRANSPLANTATION: As pt has never had any hepatic decompensation, and continues to have good hepatic synthetic function with MELD Na score of 9, liver transplantation does not need to be considered at this time. Of note patient is not a candidate for Liver Tx due to advanced lung disease 05/04/23 Continues to have GERD and dysphagia Eats potatoes, peas, bananas, jello and maintaining his weight. Usually blenderizes the meats. Heartburn is a little better. Pt advised to continue to monitor his symptoms EGD can be scheduled if dysphagia gets worse (after anesthesia approval) 09/12/24 Schedule abdominal US in October,. FU in 6 months Orders: Orders US abdomen limited Today K74.60 - Unspecified cirrhosis of liver UA CC w/rflx Micro + Cult Today R82.90 - Unspecified abnormal findings in urine Medications: Changed From omeprazole 40 mg PO TID 30 days 90 caps 3RF K21.9 - Gastro-esophageal reflux disease without esophagitis, K22.2 - Esophageal obstruction To omeprazole 40 mg PO TID 90 days 270 caps 1RF K21.9 - Gastro-esophageal reflux disease without esophagitis, K22.2 - Esophageal obstruction Refilled ferrous sulfate 324 mg PO DAILY 90 days 90 tabs 1RF D64.9 - Anemia, unspecified Coding Level of Care Code Est Pt Level 4 (02970) Diagnoses GERD without esophagitis K21.9 Hiatal hernia without gangrene or obstruction K44.9 Esophageal stricture K22.2 Cirrhosis of liver without ascites K74.60 Malodorous urine R82.90 Time Spent (min) 21
[2024-09-12 13:54] VITALS: BP 97/58; PULSE 76; O2SAT 95; BMI 26.5
--- OUTSIDE RECORDS SUMMARY | 2024-09-12 16:35 | XMS_ITS | Encounter Summary ---
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 Name Role Phone Ruchi Alexandre PARMJIT Primary Care Provider [phone] Reason for Referral * Imaging (Urgent) - Closed Specialty Diagnoses / Procedures Referred By Melva t Referred To Contact Radiology Diagnoses Thrombocytopenia (CMS/HCC) Hepatic fibrosis Procedures US Abdomen Comp w elastography Isabella Cihu MD [address] [place] [address] Phone: tel: fax: [facility] [address] [place] [address] Phone: tel: fax: Referral ID Status Reason Start Date Expiration Date Visits Re quested Visits Authorized [id number] Closed 01/20/2023 01/20/2024 1 1 Encounter Details Date Type Department Care Team (Late st Contact Info) Description 01/20/2023 Orders Only [facility] [address] [place], [place] [phone] Isabella Chiu MD [address] [place] [address] Thrombocytopenia (CMS/HCC) (Primary Dx); Hepatic fibrosis Social History Tobacco Use Types Packs/Day Years Used Date Smoking Tobacco: Former Cigarettes Passive Smoke Exposure: Never Smokeless Tobacco: Never Alcohol Use Standard Drinks/Week Comments Never 0 (1 standard drink = 0.6 oz pur e alcohol) Depression Answer Date Recorded Patient Health Questionnaire-9 Score 5 11/03/2022 Depression Answer Date Recorded Patient Health Questionnaire-2 Score 3 11/03/2022 Sex and Gender Information Value Date Recorded Sex Assigned at Male 03/28/2022 10:19 AM EDT Legal Sex Male 10:19 AM EDT Gender Identity Male 03/28/2022 10:19 AM EDT Sexual Orientation Straight 03/28/2022 10 :19 AM EDT documented as of this encounter Plan of Treatment Upcoming Encounters Date Type Department Care Team ([facility] st Contact Info) Description 09/27/2024 3:30 PM EDT Office Visit [facility] [address] [place] [address] Ruchi Alexandre FNP [address] [place] [address] Scheduled Orders Name Type Priority Associated Diagnoses Orde r Schedule Hepatitis B Surface Antigen with Reflex Confirmation Lab Routine Thrombocytopenia (CMS/HCC) Hepatic fibrosis Expected: 01/20/2023 (Approximate), Expires: 01/21/2024 documented as of this encounter Procedures Procedure Name Priority Date/Time Associated Diagnosis Comments LIVER FIBROSIS, FIBROTEST ACTITEST PANEL Routine 02/03/2023 3:24 PM EDT Thrombocytopenia (CMS/HCC) Hepatic fibrosis HEPATITIS C AB W/REFL TO HCV RNA, QN, PCR Routine 02/03/2023 3:24 PM EDT Thrombocytopenia (CMS/HCC) Hepatic fibrosis HEPATITIS A ANTIBODY, TOTAL Routine 02/03/2023 3:24 PM EDT Thrombocytopenia (CMS/HCC) Hepatic fibrosis HEPATITIS B CORE AB TOTAL Routine 02/03/2023 3:24 PM EDT Thrombocytopenia (CMS/HCC) Hepatic fibrosis HEPATITIS B SURFACE ANTIBODY, QUALITATIVE Routine 02/03/2023 3:24 PM EDT Thrombocytopenia (CMS/HCC) Hepatic fibrosis US ABDOMEN COMPLETE WITH ELASTOGRAPHY Urgent 01/25/2023 9:55 AM EDT Thrombocytopenia (CMS/HCC) Hepatic fibrosis documented in this encounter Results * Hepatitis C Antibody with Reflex to HCV, RNA, Quantitative, Real-Time PCR (02/03/2023 3:24 PM EDT) Hepatitis C Antibody Nonreactive Nonreactive [facility] Comment:Antibodies to HCV no t detected; does not exclude early acuteHCV infection. Blood Venous blood specimen / Unknown 02/03/2023 3:24 PM EDT 02/03/2023 4:05 PM EDT us Isabella Chiu MD LAB BLOOD ORDERABLES Final Resul t Performing Organization Address [facility]/[employer] Phone Number [facility] [address] [place] [phone] * Hepatitis B Surface Antibody, Qualitative (02/03/2023 3:24 PM EDT) ~Hepatitis B Surface Antibody NONREACTIVE Nonreactive [facility] Comment:Nonreactive: < 8.00 mIU/mL Blood Venous blood specimen / Unknown 02/03/2023 3:24 PM EDT 02/03/2023 4:05 PM EDT Isabella Chiu MD LAB BLOOD ORDERABLES Final Resul t Performing Organization Address [facility]/[employer] Phone Number [facility] [address] [place] [phone] * Hepatitis B Core Antibody, Total (02/03/2023 3:24 PM EDT) Hepatitis B Core Antibody Nonreactive Nonreactive [facility] Blood Venous blood specimen / Unknown 02/03/2023 3:24 PM EDT 02/03/2023 4:05 PM EDT us Isabella Chiu MD LAB BLOOD ORDERABLES Final Resul t Performing Organization Address [facility] [employer] Phone Number [facility] [address] [place] [phone] * Hepatitis A Antibody IgG (02/03/2023 3:24 PM EDT) Hepatitis A Antibody IgG Nonreactive Nonreactive [facility] Blood Venous blood specimen / Unknown 02/03/2023 3:24 PM EDT 02/03/2023 4:05 PM EDT us Isabella Chiu MD LAB BLOOD ORDERABLES Final Resul t [facility] [address] [place] [address] [phone] * (ABNORMAL) Liver Fibrosis, FibroTest-ActiTest Panel (02/03/2023 3:24 PM EDT) Liver Fibrosis Score 0.49 [facility] Liver Fibrosis Stage F2 [facility] Liver Fibrosis Interpretation SEE NOTE [facility] Comment:moderate fibrosisFib ro Test Score (f) Metavir Score f>=0 and f<=0.21 : F0 (no fibrosis)f>0.21 and f<=0.27 : F0-F1 (no fibrosis)f>0.27 and f<=0.31 : F1 (minimal fibrosis)f>0.31 and f<=0.48 : F1-F2 (minimal fibrosis)f>0.48 and f<=0.58 : F2 (moderate fibrosis)f>0.58 and f<=0.72 : F3 (advanced fibrosis)f>0.72 and f<=0.74 : F3-F4 (advanced fibrosis)f>0.74 and f<=1.00 : F4 (severe fibrosis) Nec Inflam Act Score 0.02 [facility] Nec Inflam Act Grade A0 [facility] Nec Inflam Act Interpretation SEE NOTE [facility] Comment:no activityActiTest Score (a) Metavir Score a>=0 and a<=0.17 : A0 (no activity)a>0.17 and a<=0.29 : A0-A1 (no activity)a>0.29 and a<=0.36 : A1 (minimal activity)a>0.36 and a<=0.52 : A1-A2 (minimal activity)a>0.52 and a<=0.60 : A2 (significant activity)a>0.60 and a<=0.62 : A2-A3 (significant activity)a>0.62 and a<=1.00 : A3 (severe activity) ETB-Vqyns-5-Macroglo bulin 143 106 - 279 mg/dL [facility] FIB-Haptoglobin 14(A) 43 - 212 mg/dL [facility] FIB-Apolipoprotein A1 148 94 - 176 mg/dL [facility] FIB-Total Bilirubin 0.8 0.2 - 1.2 mg/dL [facility] FIB-GGT 19 3 - 70 U/L [facility] FIB-ALT 7(A) 9 - 46 U/L [facility] Reference ID [id number] [facility] Footnote SEE NOTE [facility] Comment: The reliability of results is dependent on compliance withthe preanalytical and analytical conditions recommended by[employer]. The tests have to be deferred for: acutehemolysis, acute hepatitis, acute inflammation, extrahepatic cholestasis. The advice of a specialist should besought for interpretation in chronic hemolysis and Gilbert'ssyndrome. The test interpretation is not validated in livertransplant patients. Isolated extreme values of one of thecomponents should lead to caution in interpreting theresults. In case of discordance between a biopsy result estela test, it is recommended to seek the advice of aspecialist. The causes of these discordances could be due toa flaw of the test or to a flaw in the biopsy: i.e. a liverbiopsy has a 33% variability rate for one fibrosis stage.FibroTest is interpretable for chronic hepatitis B and C,alcoholic and non alcoholic steatosis. ActiTest isinterpretable for chronic hepatitis B and C.The performance characteristics have been determined by[employer] [facility]. Ithas not been cleared or approved by the U.S. Food and DrugAdministration. Performance characteristics refer to theanalytical performance of the test.[employer], [employer], the associated logo, [employer] and all associated [facility] [employer] are theregistered trademarks of [employer]. All third partymarks - (R) and (TM) - are the property of their respectiveowners. (C) 6231-4667 [employer]. Allrights reserved.THIS TEST WAS PERFORMED AT:[employer] [id number] ARIS LUDWIG ??[id number] CERVANTES MD,PHD,EUGENE Blood 02/03/2023 3:24 PM EDT 02/03/2023 4:05 PM EDT us Isabella Chiu MD LAB BLOOD ORDERABLES Final Resul t [facility] [address] [place] [address] [phone] * US Abdomen Comp w elastography (01/25/2023 9:55 AM EDT) Anatomical Region Laterality Modality Abdomen Ultrasound 01/25/2023 9:55 AM EDT Narrative 01/26/2023 2:33 PM EDT ? [facility] ?[address] ?[place] [address] ? Ultrasound Report ? Signed ? Patient: Jony Murillo ?MR#: [id number] ?? [id number] ? : 1960 ?Acct:[id number] ? Age/Sex: 62 / M ?ADM Date: 01/25/23 ? Loc: HO.US ? Attending Dr: Isabella Chiu MD ? Ordering Physician: Isabella Chiu MD ?? Date of Service: 01/25/23 ?? Procedure(s): US abdomen comp w elastography ?? Accession Number(s): [id number] ? cc: Isabella Chiu MD ? EXAMINATION: ?? US COMPLETE ABDOMEN WITH LIVER ELASTOGRAPHY ? CLINICAL INFORMATION: ?? Hepatic fibrosis ? COMPARISON: ?? 05/21/2019 ? TECHNIQUE: ?? Real-time imaging of the abdominal viscera. Noninvasive ultrasound ?? liver fibrosis assessment is performed using Brennan ElastPQ point ?? quantification shear wave elastography (2D-SWE) with a C5-2 MHz ?? transducer. ??Multiple elastography samples are obtained. ? FINDINGS: ? PANCREAS: Normal. The visualized pancreatic head and body are normal in ?? appearance. The remainder of the pancreas is obscured from ?? visualization by the overlying bowel gas. ? ABDOMINAL AORTA: The proximal, middle, and distal aortic segments are ?? normal in caliber. ? INFERIOR VENA CAVA: Visualized portions are normal. ? LIVER: Diffuse increased echogenicity. Normal pathology. No focal ?? lesion or intrahepatic biliary duct dilatation. ? The right lobe measures 16.2 cm in length. ??The left lobe measures 10.2 ?? cm in length. ? Portal flow is hepatopedal ? Shear wave liver elastography median stiffness is 1.33 m/s (reference: ?? normal median stiffness is 1.3 m/s or less). ? IQR/median stiffness to assess sampling precision is 0.32 (reference: ?? good quality data set is IQR/median stiffness of 0.15 or less). ? GALLBLADDER: Normal. The gallbladder is physiologically distended ?? without evidence of stones, sludge, polyps, wall thickening or ?? pericholecystic fluid. ? COMMON BILE DUCT: Normal in caliber measuring 0.6 cm in diameter. ? RIGHT KIDNEY: Normal. No hydronephrosis. No renal calculi or focal ?? parenchymal lesions. The kidney measures 11 cm in maximum dimension. ? LEFT KIDNEY: Normal. No hydronephrosis. No renal calculi or focal ?? parenchymal lesions. The kidney measures 10.4 cm in maximum dimension. ? SPLEEN: Enlarged. The spleen measures 15.7 cm in maximum dimension. ?? No focal lesion. ?? FREE FLUID: None. ? US/US abdomen comp w elastography ?? IMPRESSION: ?? 1. Changes of hepatic steatosis. Nonspecific moderate splenomegaly. ? 2. Liver elastography: ??Although measurements are suggestive of ?? compensated advanced chronic liver disease, there is statistical ?? variability of the sampling which decreases accuracy. ? REFERENCE: ?? Society of Radiologists in Ultrasound Liver Stiffness Thresholds ?? (2019): ? LIVER STIFFNESS THRESHOLDS: ?? *Liver Stiffness equal or less than 1.3 m/s: ??High probability of being ?? normal. ?? *Liver Stiffness ??less than 1.7 m/s: ??In the absence of other known ?? clinical signs, rules out compensated advanced chronic liver disease. ?? *Liver Stiffness 1.7-2.1 m/s: ??Suggestive of compensated advanced ?? chronic liver disease but need further test for confirmation. ?? *Liver Stiffness over 2.1 m/s: ??Rules in compensated advanced chronic ?? liver disease. ?? *Liver Stiffness over 2.4 m/s: ??Suggestive of clinically significant ?? portal hypertension. ? QUALITY OF DATA SET: ?? *IQR/Median value equal or less than 0.15 implies a quality data set. ?? *IQR/Median value over 0.15 implies a poor quality data set. ? SIGNIFICANT CHANGE FROM PRIOR EXAM: ?? Significant change if liver stiffness measurement is 10% or greater ?? from prior exam. ? OTHER CONSIDERATIONS: ?? The stage of liver fibrosis may be overestimated in the setting of ?? acute hepatitis, liver inflammation, elevated liver function tests, ?? hepatic vascular congestion, obstructive cholestasis, non-fasting ?? state, and infiltrative diseases such as amyloidosis and lymphoma. ??In ?? some patients with NAFLD, the liver stiffness thresholds for ?? compensated advanced chronic liver disease may be lower. ??In causes ?? other than viral hepatitis and NAFLD, liver stiffness thresholds are ?? not well established. ? Dictated By: ?Amaury Chung MD ? Signed By: ?<Electronically signed by Amaury Chung MD in OV> ?01/26/23 1430 ? DD/ 0955 ? TD/TT: ? Dry Wall Installer: SL ? Procedure Note Ambreen, Jenny - 01/26/[address] [address] Ultrasound Report Signed Patient: Betsy Murillo#: [id number] : 8Acct:[id number] Age/Sex: 62 / MADM Date: 01/25/23 Loc: HO.US Attending Dr: Isabella Chiu MD Ordering Physician: Isabella Chiu MD Date of Service: 01/25/23 Procedure(s): US abdomen comp w elastography Accession Number(s): [id number] cc: Isabella Chiu MD EXAMINATION: US COMPLETE ABDOMEN WITH LIVER ELASTOGRAPHY CLINICAL INFORMATION: Hepatic fibrosis COMPARISON: 05/21/2019 TECHNIQUE: Real-time imaging of the abdominal viscera. Noninvasive ultrasound liver fibrosis assessment is performed using Brennan ElastPQ point quantification shear wave elastography (2D-SWE) with a C5-2 MHz transducer. Multiple elastography samples are obtained. FINDINGS: PANCREAS: Normal. The visualized pancreatic head and body are normal in appearance. The remainder of the pancreas is obscured from visualization by the overlying bowel gas. ABDOMINAL AORTA: The proximal, middle, and distal aortic segments are normal in caliber. INFERIOR VENA CAVA: Visualized portions are normal. LIVER: Diffuse increased echogenicity. Normal pathology. No focal lesion or intrahepatic biliary duct dilatation. The right lobe measures 16.2 cm in length. The left lobe measures 10.2 cm in length. Portal flow is hepatopedal Shear wave liver elastography median stiffness is 1.33 m/s (reference: normal median stiffness is 1.3 m/s or less). IQR/median stiffness to assess sampling precision is 0.32 (reference: good quality data set is IQR/median stiffness of 0.15 or less). GALLBLADDER: Normal. The gallbladder is physiologically distended without evidence of stones, sludge, polyps, wall thickening or pericholecystic fluid. COMMON BILE DUCT: Normal in caliber measuring 0.6 cm in diameter. RIGHT KIDNEY: Normal. No hydronephrosis. No renal calculi or focal parenchymal lesions. The kidney measures 11 cm in maximum dimension. LEFT KIDNEY: Normal. No hydronephrosis. No renal calculi or focal parenchymal lesions. The kidney measures 10.4 cm in maximum dimension. SPLEEN: Enlarged. The spleen measures 15.7 cm in maximum dimension. No focal lesion. FREE FLUID: None. US/US abdomen comp w elastography IMPRESSION: 1. Changes of hepatic steatosis. Nonspecific moderate splenomegaly. 2. Liver elastography: Although measurements are suggestive of compensated advanced chronic liver disease, there is statistical variability of the sampling which decreases accuracy. REFERENCE: Society of Radiologists in Ultrasound Liver Stiffness Thresholds (2020): LIVER STIFFNESS THRESHOLDS: *Liver Stiffness equal or less than 1.3 m/s: High probability of being normal. *Liver Stiffness less than 1.7 m/s: In the absence of other known clinical signs, rules out compensated advanced chronic liver disease. *Liver Stiffness 1.7-2.1 m/s: Suggestive of compensated advanced chronic liver disease but need further test for confirmation. *Liver Stiffness over 2.1 m/s: Rules in compensated advanced chronic liver disease. *Liver Stiffness over 2.4 m/s: Suggestive of clinically significant portal hypertension. QUALITY OF DATA SET: *IQR/Median value equal or less than 0.15 implies a quality data set. *IQR/Median value over 0.15 implies a poor quality data set. SIGNIFICANT CHANGE FROM PRIOR EXAM: Significant change if liver stiffness measurement is 10% or greater from prior exam. OTHER CONSIDERATIONS: The stage of liver fibrosis may be overestimated in the setting of acute hepatitis, liver inflammation, elevated liver function tests, hepatic vascular congestion, obstructive cholestasis, non-fasting state, and infiltrative diseases such as amyloidosis and lymphoma. In some patients with NAFLD, the liver stiffness thresholds for compensated advanced chronic liver disease may be lower. In causes other than viral hepatitis and NAFLD, liver stiffness thresholds are not well established. Dictated By: Amaury Chung MD Signed By: <Electronically signed by Amaury Chung MD in OV> 01/26/23 1430 DD/ 0955 TD/TT: Dry Wall Installer: PABLO us Isabella Chiu MD IMG US PROCEDURES Final Result documented in this encounter Visit Diagnoses Diagnosis Thrombocytopenia (CMS/HCC)- Primary Unspecified thrombocytopenia Hepatic fibrosis Cirrhosis of liver without mention of alcohol documented in this encounter Additional Health Concerns Assessment Noted Time PHQ-9 Depression Total Score: 5 11/04/19 23 1:33 PM EDT documented as of this encounter Care Teams Parts Counter Sales Person Relationship Specialty Start Date End Date Ruchi Alexandre FNP [address] [place] [address] PCP - General Family Medicine 07/19/22 Dr. Chirag Cordova Pulmonary Disease 05/26/24 documented as of this encounter
--- OUTSIDE RECORDS SUMMARY | 2024-09-12 16:35 | XMS_ITS | Encounter Summary ---
Author Organization [employer] Address [address] [facility] [address] [place] [address] Care Team Providers Care Relief Man Name Role Phone Ruchi Alexandre Primary Care Provider [phone] Encounter Details Date Type Department Care Team (Late st Contact Info) Description 08/15/2022 Orders Only [facility] [address] [place] [address] Sarah Estrada LPN Social History Tobacco Use Types Packs/Day Years Used Date Smoking Tobacco: Never Assessed Sex and Gender Information Value Date Recorded Sex Assigned at Male 03/28/2022 10:19 AM EDT Legal Sex Male 10:19 AM EDT Gender Identity Male 03/28/2022 10:19 AM EDT Sexual Orientation Straight 03/28/2022 10 :19 AM EDT documented as of this encounter Plan of Treatment Upcoming Encounters Date Type Department Care Team (Late st Contact Info) Description 09/27/2024 3:30 PM EDT Office Visit [facility] [address] [place] [address] Ruchi Alexandre FNP [address] [place] [address] documented as of this encounter Procedures Procedure Name Priority Date/Time Associated Diagnosis Comments COMPLETE BLOOD COUNT MAN DIF Routine 01/17/2023 4:43 PM EDT LACTIC ACID LAB USE ONLY Routine 12/07/2022 6:57 PM EDT URINALYSIS, COMPLETE, WITH REFLEX TO CULTURE Routine 12/07/2022 6:04 PM EDT SLIDE REVIEW Routine 12/07/2022 4:10 PM EDT HIGH SENSITIVITY TROPONIN I Routine 12/07/2022 4:10 PM EDT SARS COV2/INFLUENZA A/B AND RSV RNA QL NAAT Routine 12/07/2022 4:10 PM EDT CBC WITH AUTO DIFFERENTIAL Routine 12/07/2022 4:10 PM EDT LACTIC ACID Routine 12/07/2022 4:10 PM EDT COMPREHENSIVE METABOLIC PANEL Routine 12/07/2022 4:10 PM EDT HEMATOXYLIN AND EOSIN STAIN Routine 11/11/2022 1:27 PM EDT BASIC METABOLIC PANEL, FASTING Routine 10/07/2022 10:31 AM EDT CBC Routine 10/07/2022 10:31 AM EDT HEMATOXYLIN AND EOSIN STAIN Routine 09/26/2022 3:14 PM EDT GROSS AND MICROSCOPIC LEVEL 4 Routine 08/19/2022 1:41 PM EDT documented in this encounter Results * (ABNORMAL) Complete Blood Count Manual Diff (01/17/2023 4:43 PM EDT) White Blood Count 5.3 4.8 - 10.8 X10*3/uL [facility] Red Blood Count 3.39(L) 4.60 - 5.80 X10*6/uL [facility] Hemoglobin 10.3(L) 14.0 - 18.0 g/dl [facility] Hematocrit 33.3(L) 42.0 - 52.0 % [facility] Mean Corpuscular Volume 98.2(H) 80.0 - 98.0 fL [facility] Mean Corpuscular Hemoglobin 30.4 27.0 - 33.0 pg [facility] Mean Corpuscular HGB Conc 30.9(L) 31.0 - 36.0 g/dl [facility] Red Cell Distribution Width 17.5(H) 11.0 - 16.0 % [facility] Platelet Count 88(L) 160 - 400 X10*3/uL [facility] Mean Platelet Volume 13.4(H) 9.4 - 12.4 fL [facility] NRBC Pct Auto 0.0 0.0 - 0.2 /100WBC [facility] NRBC Abs Auto 0.000 0.0 - 0.012 X10*3/uL [facility] Neutrophils % Manual 21(L) 45 - 73 % [facility] Band Neutrophils Percent 6(H) 3 - 5 % [facility] Lymphocytes Percent Manual 13(L) 20 - 40 % [facility] Monocytes Percent Manual 58(H) 2 - 11 % [facility] Myelocytes 2 % [facility] NEUTROPHILS ABSOLUTE MANUAL 1.4(L) 2.0 - 8.3 X10*3/uL [facility] LYMPHOCYTES ABSOLUTE MANUAL 0.7(L) 1.2 - 4.9 X10*3/uL [facility] MONOCYTES ABSOLUTE MANUAL 3.1(H) 0.1 - 1.2 X10*3/uL [facility] Absolute Myelocytes 0.1 X10*/uL [facility] Platelet Estimate DECREASED NORMAL [facility] Platelet Morphology Comment NORMAL [facility] RBC Morphology NOTED [facility] POLYCHROMASIA 1+ (0-2) /OIF [facility] Tear Drop Cells 1+ (0-2) /F [facility] Ovalocytes 1+ (5-14) /[facility] 01/17/2023 4:43 PM EDT 01/17/2023 5:29 PM EDT us Isabella Chiu MD LAB BLOOD ORDERABLES Final Resul t [facility] [address] [place] [address] [phone] * Lactic Acid (12/07/2022 6:57 PM EDT) Lactic Acid 0.9 0.5 - 2.0 mmol/L [facility] 12/07/2022 6:57 PM EDT 12/07/2022 7:01 PM EDT us [facility] External Provider LAB BLO OD ORDERABLES Final Result Performing Organization Address [facility] Co de Phone Number [facility] [address] [place] [address] [phone] * (ABNORMAL) Urinalysis, Complete, with Reflex to Culture (12/07/2022 6:04 PM EDT) Color Urine Dark Yellow [facility] Appearance Urine Clear [facility] PH 6.5 5.0 - 9.0 [facility] Glucose Urine UA Negative Negative mg/dL [facility] Urine Blood Large (3+)(A) Negative [facility] Specific [place] - Urine 1.015 1.005 - 1.025 [facility] Urine Protein 100 (2+)(A) Neg-Trace mg/dL [facility] Urine Ketones Negative Negative mg/dL [facility] Nitrite Urine Negative Negative [facility] Leukocyte Esterase Urine Negative Negative [facility] RBC Urine 6-10(A) 0 - 2 /HPF [facility] Urine WBC 0-5 0 - 5 /HPF [facility] Urine Squamous Epithelial Cell 0-2 0 - 2 /HPF [facility] Urine Bacteria None Seen None Seen [facility] Hyaline Casts, Urine 0-2 0 - 2 /LPF [facility] 12/07/2022 6:04 PM EDT 12/07/2022 6:17 PM EDT Narrative [facility] - 12/07/2022 6:49 PM EDT [id number], Clean Catch [facility] External Provider LAB URI NE ORDERABLES Final Result Performing Organization Address [facility] Co de Phone Number [facility] [address] [place] [phone] * SARS-CoV-2 RNA, Influenza A/B, and RSV RNA, Ql NAAT (12/07/2022 4:10 PM EDT) Pathologist [facility] Influenza A PCR NEGATIVE Negative [facility] Influenza B PCR NEGATIVE Negative [facility] Resp Syncy Virus RNA Qual PCR NEGATIVE Negative [facility] SARS COV2 PCR NEGATIVE Negative [facility] Comment:All test results mus t be correlated with clinical findings.Negative results do not preclude SARS-CoV2, influenza Avirus, influenza B virus and/or RSV infectionand should not be used as the sole basis for treatment orother patient management decisions. Negative results must becombined with clinical observations, patient history, andepidemiological information.This test has not been evaluated for monitoring treatment ofinfection.This test has been authorized by the FDA under an EmergencyUse Authorization (EUA) for use by authorized laboratories.Testing performed on the [employer] GeneXpert utilizingreal-time RT-PCR.All SARS CoV2 and positive influenza A/B results arereported to [facility]. 12/07/2022 4:10 PM EDT 12/07/2022 4:15 PM EDT [facility] Exter nal Provider LAB MICROBIOLOGY - GENERAL ORDERABLES Final Result Performing Organization Address [facility] Co de Phone Number [facility] [address] [place] [phone] * High Sensitivity Troponin I (12/07/2022 4:10 PM EDT) TROPONIN I HIGH SENSITIVITY 20.8 <3.5 - 35.0 ng/L [facility] Comment:The [place] high sens itivity Troponin-I results should beused in conjunction with other diagnostic information suchas ECG, clinical observations and information, and patientsymptoms to aid in the diagnosis of ID. 12/07/2022 4:10 PM EDT 12/07/2022 4:13 PM EDT us [facility] External Provider LAB BLO OD ORDERABLES Final Result [facility] [address] [place] [address] [phone] * (ABNORMAL) Comprehensive Metabolic Panel (12/07/2022 4:10 PM EDT) Sodium 132(L) 135 - 145 mmol/L [facility] Potassium 3.8 3.3 - 5.1 mmol/L [facility] Chloride 100 96 - 108 mmol/L [facility] Carbon Dioxide 19(L) 22 - 29 mmol/L [facility] Anion Gap 17 12 - 20 [facility] Urea Nitrogen (BUN) 9 9 - 16 mg/dL [facility] Creatinine, Serum 1.04 0.5 - 1.4 mg/dL [facility] Creatinine Clr Calc Pharmacy 74.0 [facility] Comment:eGFR (calculated fro m the MDRD study equation) and eCrCl(calculated from the Cockcroft-Gault equation) are based ondifferent parameters and may not yield comparable results.If eCrCl result is absurd, please check patient'sheight/weight. Estimated Glomerular Filt Rate >60 [facility] Comment:NOTE: For -Am erican individuals, multiply the result by 1.210.Chronic Kidney Disease: Estimated GFR < 60 mL/min/1.69q3Sfybva Kidney Disease: Estimated GFR < 15 mL/min/1.73m2 Glucose 203(H) 60 - 115 mg/dL [facility] Calcium 9.1 8.4 - 10.2 mg/dL [facility] Bilirubin, Total 3.0(H) 0.0 - 1.0 mg/dL [facility] Aspartate Amino Transferase 81(H) 5 - 37 U/L [facility] Alanine Aminotransferase 15 0 - 40 U/L [facility] Total Protein 6.8 6.5 - 8.0 g/dL [facility] Albumin Level 3.6 3.5 - 5.0 g/dL [facility] Alkaline Phosphatase 68 39 - 117 U/L [facility] 12/07/2022 4:10 PM EDT 12/07/2022 4:13 PM EDT [facility] External Provider LAB BLO OD ORDERABLES Final Result Performing Organization Address [facility] de Phone Number [facility] [address] [place] [phone] * (ABNORMAL) Lactic Acid (12/07/2022 4:10 PM EDT) Lactic Acid 3.6(HH) 0.5 - 2.0 mmol/L [facility] Comment:Critical value for t est(s):LACTA Results called to franklin back by:LUZ Person calling:DORYS Date:12/07/22Time:1637 12/07/2022 4:10 PM EDT 12/07/2022 4:13 PM EDT [facility] External Provider LAB BLO OD ORDERABLES Final Result Performing Organization Address [facility] de Phone Number [facility] [address] [place] [phone] * Slide Review (12/07/2022 4:10 PM EDT) Slide Review VERIFIED [facility] 12/07/2022 4:10 PM EDT 12/07/2022 4:13 PM EDT [facility] External Provider LAB BLO OD ORDERABLES Final Result Performing Organization Address [facility]/ZIP Co de Phone Number [facility] [address] [place] [address] [phone] * (ABNORMAL) CBC auto differential (12/07/2022 4:10 PM EDT) White Blood Count 15.5(H) 4.8 - 10.8 X10*3/uL [facility] Red Blood Count 3.33(L) 4.60 - 5.80 X10*6/uL [facility] Hemoglobin 10.0(L) 14.0 - 18.0 g/dl [facility] Hematocrit 31.7(L) 42.0 - 52.0 % [facility] Mean Corpuscular Volume 95.2 80.0 - 98.0 fL [facility] Mean Corpuscular Hemoglobin 30.0 27.0 - 33.0 pg [facility] Mean Corpuscular HGB Conc 31.5 31.0 - 36.0 g/dl [facility] Red Cell Distribution Width 16.9(H) 11.0 - 16.0 % [facility] Platelet Count 95(L) 160 - 400 X10*3/uL [facility] Mean Platelet Volume 12.7(H) 9.4 - 12.4 fL [facility] Neutrophils Percent Auto 52.8 45 - 73 % [facility] Imm Gran Pct Auto 3.9(H) 0.0 - 0.4 % [facility] Lymphocytes Percent Auto 2.2(L) 20 - 40 % [facility] Monocytes Percent Auto 40.4(H) 2 - 11 % [facility] Eosinophils Percent Auto 0.6 0 - 4 % [facility] Basophils Percent Auto 0.1 0 - 2 % [facility] NRBC Pct Auto 0.0 0.0 - 0.2 /100WBC [facility] Neutrophils Absolute Auto 8.2 2.0 - 8.3 x10*3/uL [facility] Imm Gran Abs Auto 0.60(H) 0.00 - 0.03 X10*3/uL [facility] Lymphocytes Absolute Auto 0.3(L) 1.2 - 4.9 X10*3/uL [facility] Monocytes Absolute Auto 6.2(H) 0.1 - 1.2 X10*3/uL [facility] Eosinophils Absolute Auto 0.1 0.0 - 0.4 X10*3/uL [facility] Basophils Absolute Auto 0.0 0.0 - 0.2 X10*3/uL [facility] NRBC Abs Auto 0.000 0.0 - 0.012 X10*3/uL [facility] 12/07/2022 4:10 PM EDT 12/07/2022 4:13 PM EDT us [facility] External Provider LAB BLO OD ORDERABLES Edited Result - Final [facility] [address] [place] [address] [phone] * Hematoxylin and Eosin Stain (11/11/2022 1:27 PM EDT) 11/11/2022 1:27 PM EDT 11/11/2022 2:00 PM EDT Memo [facility] - 11/15/2022 10:21 AM EDT ----- ------- Name: Jony Murillo ?Age/Sex: 62/M ? : 1960 Unit#: [id number] ?? Attend Dr: Melissa Handy MD ?Re11/11/22 ?Status: DEP SDC ? Location: HO.SSS ?Disch: ? ----- ------- SPEC : [id number] ? RECD: 11/11/22-1400 ? STATUS: ??SOUT ? REQ NUM: [id number] ? FLORENTINO: 11/11/22-7 ? SUBM DR: Melissa Handy MD ? ENTERED: ??11/11/22-1296 ?SP TYPE: Surgical ? OTHR DR: Ruchi Alexandre [employer] ? ORDERED: ??HE Stain/2, Gross Micro L4 ? COMMENTS: One of the tissue fragments is extremely tiny and may be ?difficult to identify during processing and may fail to ?survive processing. ? Diagnosis ?? Esophagus, stricture, biopsy: ?- Cardiac-type mucosa with moderate chronic active inflammation; no intestinal ?? metaplasia seen. ?- No squamous epithelium seen. ?Clinical History Dysphagia, esophageal stricture ?Microscopic Description Microscopic sections reviewed. ? Material Received ?? Esophageal stricture bx's ? Gross Description Received in formalin labeled Esophageal stricture are four glistening, semitranslucent, soft, hyperemic and congested, fagan and fagan-pink, irregular tissue fragments, ranging from minute - 0.3 cm. in greatest dimension, which are submitted in toto in a single cassette labeled A. KG Copies To: ?? Melissa Handy MD ?? [address] ?? [place] [address] ?? [phone] ?? Ruchi Alexandre [employer] ?? [address] ?? [place] ?? [phone] ? CONTINUED ON NEXT PAGE ----- ------- Name: Jony Murillo ?Age/Sex: 62/M ? : 1960 Unit#: [id number] ?? Attend Dr: Melissa Handy MD ?Re11/11/22 ?Status: DEP SDC ? Location: HO.SSS ?Disch: ? ----- ------- SPEC : [id number] ? RECD: 11/11/22-1400 ? STATUS: ??SOUT ? REQ NUM: [id number] ? FLORENTINO: 11/11/22-7 ? SUBM DR: Melissa Handy MD ? ENTERED: ??11/11/22-1416 ?SP TYPE: Surgical ? OTHR DR: Ruchi Alexandre [employer]KE [employer]SEM[employer]ER ? ORDERED: ??HE Stain/2, Gross Micro L4 ? COMMENTS: One of the tissue fragments is extremely tiny and may be ?difficult to identify during processing and may fail to ?survive processing. ----- ------- Signed (signature on file) Lloyd Cook MD 11/15/22 1021 ? ----- ------- ? END OF REPORT ? us [facility] External Provider LAB BLO OD ORDERABLES Final Result [facility] [address] [place] [address] [phone] * (ABNORMAL) Basic Metabolic Panel, Fasting (10/07/2022 10:31 AM EDT) Sodium 142 135 - 145 mmol/L [facility] Potassium 3.7 3.3 - 5.1 mmol/L [facility] Chloride 111(H) 96 - 108 mmol/L [facility] Carbon Dioxide 24 22 - 29 mmol/L [facility] Anion Gap 11(L) 12 - 20 [facility] Urea Nitrogen (BUN) 6(L) 9 - 16 mg/dL [facility] Creatinine, Serum 0.86 0.5 - 1.4 mg/dL [facility] Creatinine Clr Calc Pharmacy 89.5 [facility] Comment:eGFR (calculated fro m the MDRD study equation) and eCrCl(calculated from the Cockcroft-Gault equation) are based ondifferent parameters and may not yield comparable results.If eCrCl result is absurd, please check patient'sheight/weight. Estimated Glomerular Filt Rate >60 [facility] Comment:NOTE: For -Am erican individuals, multiply the result by 1.210.Chronic Kidney Disease: Estimated GFR < 60 mL/min/1.30k7Tufgxr Kidney Disease: Estimated GFR < 15 mL/min/1.73m2 Glucose Fasting 104(H) 60 - 99 mg/dL [facility] Comment:A fasting glucose fr om 100-125 mg/dl is considered impaired(pre-diabetes). Calcium 8.0(L) 8.4 - 10.2 mg/dL [facility] 10/07/2022 10:3 1 AM EDT 10/07/2022 10:34 AM EDT [facility] External Provider LAB BLO OD ORDERABLES Final Result [facility] [address] [place] [address] [phone] * (ABNORMAL) CBC (10/07/2022 10:31 AM EDT) White Blood Count 4.4(L) 4.8 - 10.8 X10*3/uL [facility] Red Blood Count 3.33(L) 4.60 - 5.80 X10*6/uL [facility] Hemoglobin 10.1(L) 14.0 - 18.0 g/dl [facility] Hematocrit 32.4(L) 42.0 - 52.0 % [facility] Mean Corpuscular Volume 97.3 80.0 - 98.0 fL [facility] Mean Corpuscular Hemoglobin 30.3 27.0 - 33.0 pg [facility] Mean Corpuscular HGB Conc 31.2 31.0 - 36.0 g/dl [facility] Red Cell Distribution Width 17.2(H) 11.0 - 16.0 % [facility] Platelet Count 105(L) 160 - 400 X10*3/uL [facility] Mean Platelet Volume 12.4 9.4 - 12.4 fL [facility] NRBC Pct Auto 0.0 0.0 - 0.2 /100WBC [facility] NRBC Abs Auto 0.000 0.0 - 0.012 X10*3/uL [facility] 10/07/2022 10:3 1 AM EDT 10/07/2022 10:34 AM EDT [facility] External Provider LAB BLO OD ORDERABLES Final Result [facility] [address] [place] [address] [phone] * Hematoxylin and Eosin Stain (09/26/2022 3:14 PM EDT) 09/26/2022 3:14 PM EDT 09/27/2022 6:57 AM EDT Narrative [facility] - 09/29/2022 11:09 AM EDT ----- ------- Name: Jony Murillo ?Age/Sex: 62/M ? : 1960 Unit#: [id number] ?? Attend Dr: Melissa Handy MD ?Re09/26/22 ?Status: REG SDC ? Location: HO.SSS ?Disch: ? ----- ------- SPEC : [id number] ? RECD: 09/27/22-656 ? STATUS: ??SOUT ? REQ NUM: [id number] ? FLORENTINO: 09/26/22 ? SUBM DR: Melissa Handy MD ? ENTERED: ??09/27/22 ?SP TYPE: Surgical ? OTHR DR: Ruchi Alexandre [employer]KE [employer]SEMBLER ? ORDERED: ??HE Stain/2, Gross Micro L4 ? COMMENTS: Two of the tissue fragments are extremely tiny and may be ?difficult to identify during processing and may fail to ?survive processing. ? Diagnosis ?? Esophagus, stricture, biopsy: ?- Cardiac-type mucosa with chronic active erosive inflammation; no intestinal ?? metaplasia or dysplasia seen. ?- No squamous epithelium seen. ?Clinical History Pre-Op Dx: ??Dysphagia, esophageal stricture Post-Op Dx: Hiatal hernia, esophagitis, esophageal stricture ?Microscopic Description Microscopic sections reviewed. ? Material Received ?? Esophageal stricture ? Gross Description Received in formalin labeled Esophageal stricture are five glistening, semitranslucent, soft, hyperemic and congested, fagan and fagan-pink, irregular tissue fragments, ranging from minute - 0.4 cm. in greatest dimension, which are submitted in toto in a single cassette labeled A. KG Copies To: ?? Melissa Handy MD ?? [address] [place] [address] DrPrasanth ?? [place] [address] ?? [phone] ?? Ruchi Alexandre ?? [address] ?? [place] ?? [phone] ? CONTINUED ON NEXT PAGE ----- ------- Name: Jony Murillo ?Age/Sex: 62/M ? : 1960 Unit#: [id number] ?? Attend Dr: Melissa Handy MD ?Re09/26/22 ?Status: REG SDC ? Location: HO.SSS ?Disch: ? ----- ------- SPEC : [id number] ? RECD: 09/27/22 ? STATUS: ??SOUT ? REQ NUM: [id number] ? FLORENTINO: 09/26/22-1513 ? SUBM DR: Melissa Handy MD ? ENTERED: ??09/27/22 ?SP TYPE: Surgical ? OTHR DR: Ruchi AlexandreP ? ORDERED: ??HE Stain/2, Gross Micro L4 ? COMMENTS: Two of the tissue fragments are extremely tiny and may be ?difficult to identify during processing and may fail to ?survive processing. ----- ------- Signed (signature on file) Lloyd Cook MD 09/29/22 0405 ? ----- ------- ? END OF REPORT ? us [facility] External Provider LAB BLO OD ORDERABLES Final Result [facility] [address] [place] [phone] [phone] * Gross and Microscopic Level 4 (08/19/2022 1:41 PM EDT) 08/19/2022 1:41 PM EDT 08/19/2022 2:20 PM EDT [facility] - 09/12/2022 12:16 PM EDT ----- ------- Name: Jony Murillo ?Age/Sex: 62/M ? : 1960 Unit#: [id number] ?? Attend Dr: Melissa Handy MD ?Re08/19/22 ?Status: DEP SDC ? Location: HO.SSS ?Disch: ? ----- ------- SPEC : [id number] ? RECD: 08/19/22-1419 ? STATUS: ??SOUT ? REQ NUM: [id number] ? FLORENTINO: 08/19/22-1341 ? SUBM DR: Melissa Handy MD ? ENTERED: ??08/19/22-1442 ?SP TYPE: Surgical ? OTHR : ? ORDERED: ??Gross Micro L4, Cytokeratin, IHC, Add. immunos/2, Specials Gr. 1, PASF ? COMMENTS: Block A sent to [facility] for HSV ?? CMV IHC's on 08/23/22. ?One of the tissue fragments is extremely tiny and may be ?difficult to identify during processing and may fail to ?survive processing. ?Addendum Addendum ??1 ?Entered: 09/12/22-1215 Immunostains for HSV and CMV are non-reactive. ??No change is made to the diagnosis. Technical services for immunohistochemistry studies performed at [facility] [address] [place]; CLIA #[id number] Addendum Signed (signature on file) Lloyd Cook MD 09/12/221215 ? ----- ------- ? Diagnosis ?? Esophagus, stricture, biopsy: ?- Cardiac-type mucosa with ulceration and regenerative changes; no intestinal ?? metaplasia seen. ?- Chronic active erosive esophagitis. ? COMMENT: HSV and CMV immunostains are underway - results will be addended. ?Clinical History Pre-Op Dx: ??Dysphagia, esophageal stricture Post-Op Dx: GERD, esophageal stricture, hiatal hernia ?Microscopic Description Microscopic sections reviewed. ??Pancytokeratin immunostain highlights only [place] benign epithelium; no fungi are seen, supported by PAS stain. ? Material Received ?? Esophageal stricture bx's ? CONTINUED ON NEXT PAGE ----- ------- Name: Jony Murillo ?Age/Sex: 62/M ? : 1960 Unit#: [id number] ?? Attend Dr: Melissa Handy MD ?Re08/19/22 ?Status: DEP SDC ? Location: HO.SSS ?Disch: ? ----- ------- SPEC : [id number] ? RECD: 08/19/22-1420 ? STATUS: ??SOUT ? REQ NUM: [id number] ? FLORENTINO: 08/19/22-1341 ? SUBM DR: Melissa Handy MD ? ENTERED: ??08/19/22-1442 ?SP TYPE: Surgical ? OTHR : ? ORDERED: ??Gross Micro L4, Cytokeratin, IHC, Add. immunos/2, Specials Gr. 1, PASF ? COMMENTS: Block A sent to [facility] for HSV ?? CMV IHC's on 08/23/22. ?One of the tissue fragments is extremely tiny and may be ?difficult to identify during processing and may fail to ?survive processing. ? Gross Description Received in formalin labeled Esophageal stricture bx's are three glistening, semitranslucent, soft, fagan-pink, irregular tissue fragments, ranging from less than 0.1 to 0.3 cm. in greatest dimension, which are submitted in toto in a single cassette labeled Mike JOHNSON Special studies ordered and performed: immunostain pancytokeratin; PAS stain ----- ------- Signed (signature on file) Lloyd Cook MD 08/29/22 1146 ? ----- ------- ? END OF REPORT ? [facility] External Provider LAB [facility] ORDER[place]LES Final Result [facility] [address] [place] [phone] documented in this encounter Visit Diagnoses Not on filedocumented in this encounter Care Teams Relief Man Relationship Specialty Start Date End Date Ruchi Alexandre FNP [address] [place] [address] PCP - General Family Medicine 07/19/22 Dr. Chirag Cordova Pulmonary Disease 05/26/24 documented as of this encounter
--- OUTSIDE RECORDS SUMMARY | 2024-09-12 16:35 | XMS_ITS | Clinical Summary ---
Author Organization [employer] Address [address] [facility] [address] [place] [address] Care Team Providers Care Assembler Installer Structures Name Role Phone Ruchi Alexandre PARMJIT Primary Care Provider [phone] Allergies Active Allergy Reactions Criticality Noted Date Comments Quinolones 07/12/2018 Other reaction(s): tendon rupture Tramadol 11/18/2010 Other reaction(s): Hives Medications omeprazole (PriLOSEC) [address] Maldonado ns:Gastroesophag eal reflux disease, unspecified whether esophagitis present TAKE 1 CAPSULE BY MOUTH TWICE DAILY 180 capsule 1 3 Active amphetamine-dext roamphetamine (Adderall) 10 MG tablet Take 1 tablet by mouth in the morning. 3 Active clonazePAM (KlonoPIN) 1 MG tablet Take 1 mg by mouth 2 times daily. 3 Active lamoTRIgine (LaMICtal) 200 MG tablet Take 1 tablet by mouth 2 times daily. 3 Active Invega 3 MG 24 hr tablet TAKE 1 TABLET BY MOUTH EVERY AFTERNOON 3 Active Invega 6 MG 24 hr tablet Take 6 mg by mouth in the morning. 3 Active Viagra 100 MG tablet TAKE 1 TABLET 1 HOUR BEFORE SEXUAL RELATIONS ONCE DAILY NEEDED. 2 Active carbamide peroxide (Debrox) 6.5 % otic solution 5 drops every 12 (twelve) hours. 1 Active Emollient (CeraVe Moisturizing) cream to put over the nose 1 Active ipratropium-albu terol (Duo-Neb) 0.5-2.5 mg/3 mL nebulizer solution INHALE 1 AMPULE USING A NEBULIZER EVERY 6 TO 8 HOURS NEEDED FOR WHEEZING 3 Active naloxone (Narcan) 4 mg/0.1 mL nasal spray 1 full spray by intranasal route in 1 nostril as instructed. May repeat dose every 2-3 minutes as needed alternating nostrils with each dose 9 Active albuterol (Ventolin HFA) 108 (90 Base) MCG/ACT inhaler INHALE 2 PUFFS BY MOUTH EVERY 4 TO 6 HOURS IF NEEDED 18 g 3 3 Active ferrous sulfate 324 (65 Fe) MG EC tablet Take 324 mg by mouth in the morning. 4 Active predniSONE (Deltasone) 5 MG tablet 4 Active Spiriva Respimat 2.5 MCG/ACT inhaler 2 puffs in the morning. 3 Active Fluticasone-Salm eterol 500-50 MCG/ACT aerosol powderIndication s:Chronic obstructive pulmonary disease, unspecified COPD type (CMS/HCC) INHALE 1 PUFF BY MOUTH TWICE DAILY, 12 HOURS APART, RINSE MOUTH AFTER USING. 60 each 5 4 Active ipratropium-albu terol (Combivent Respimat) 20-100 MCG/ACT inhaler INHALE 1 PUFF 4 TIMES A DAY, MAY TAKE ADDITIONAL PUFFS NEEDED. (MAX OF 6 PUFFS PER DAY) 4 g 3 4 Active metoprolol tartrate (Lopressor) 25 MG tabletIndication s:Aortic root dilation (CMS/HCC) TAKE 1 TABLET BY MOUTH TWICE DAILY 180 tablet 3 4 Active gabapentin (Neurontin) 600 MG tablet TAKE 1 TABLET BY MOUTH EVERY DAY IN THE MORNING, 1 TABLET EVERY DAY IN THE EVENING, AND 2 TABLETS EVERY DAY AT BEDTIME 120 tablet 4 4 Active Symbicort 160-4.5 MCG/ACT inhaler INHALE 2 PUFFS BY MOUTH TWICE DAILY, RINSE MOUTH AFTER USING. 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 Fountain Angle-closure glaucoma, moderate stage Overview (10/04/2023): - May 2023: identified during CEE at [facility] Mood disorder 08/09/2023 Assessment & Plan (08/09/2023 8:22 AM EDT): Followed by Dr. Brendan Ruvalcaba Continues on the following medications through psych: Invega 6mg in the morning, and 3mg in the afternoon Clonazepam 1mg BID Lamotrigene 200mg BID Adderall 1mg daily Closed head injury 08/08/2023 Esophageal stricture 08/08/2023 Hypoxia 08/08/2023 O2 dependent 08/08/2023 Overview (05/26/2024): Prescribed/managed by [facility] Pulm - Dr. Cordova Apr 2024: Rest: 2.5-3 L/min Activity outside of home: 4L/min Former cigarette smoker 08/08/2023 Healthcare maintenance 01/26/2023 Overview (08/11/2023): Colonoscopy: normal (04/16/18, VICKI Mccloud, [facility]). Due 2027 Opto: CEE May 2023 w/ [facility]. No retinopathy. Assessment & Plan (01/26/2023 6:19 PM EDT): ?? Vaccines: rxn to 2nd pneumococcal vaccine, defer at this time. Aortic root dilation 01/26/2023 Overview (02/17/2024): ? Aortic root and ascending aorta are dilated and measuring up to 37 and 41 mm (compared to 37 and 39 mm 1 year ago) - , ASHWIN Villatoro. HFCCA Feb 2020 Established with [facility] Cards - Dr. Joseph Plan: annual monitoring of ascending aortic aneurysm with echo ED precautions Thrombocytopenia 12/14/2022 Overview (01/26/2023): Lab Results Component Value Date PLT 88 (L) 01/17/2023 PLT 95 (L) 12/07/2022 PLT 105 (L) 10/07/2022 Assessment & Plan (01/26/2023 6:38 PM EDT): ?? Hx of chronic thrombocytopenia ?? US abdomen and referral to GI ordered by Dr. Chiu on 01/20/23 ?? Previous workup through Heme Anxiety 11/03/2022 Pulmonary nodules 11/03/2022 Overview (08/11/2023): Followed by Dr. Villegas & Dr. Cordova, plan was initially to have CT guided biopsy but according to pt the nodule shrunk and it was held off Plan for continued monitoring of nodule in right upper lobe Referral to re-establish with Dr. Serrato 08/11/23 Singers' nodes 10/18/2019 Steatosis of liver 05/24/2019 Overview (05/26/2024): Following with [facility] GI - Dr. Handy Vaccines: Hep A - eligible for dose #2 Hep B - due to re-check abx. If negative --> Heplisav - B Encouraged to avoid excess APAP, NSAIDs, alcohol, and other hepatotoxins Abdominal US 01/25/23: IMPRESSION: 1. Changes of hepatic steatosis. Nonspecific moderate splenomegaly. 2. Liver elastography: Although measurements are suggestive of compensated advanced chronic liver disease, there is statistical variability of the sampling which decreases accuracy. Abdominal US May 2023 c/w hepatis steatosis Abdominal US November 2023 for HCC screen w/ history of cirrhosis. C/w hepatic steatosis, no hepatic mass. Assessment & Plan (05/26/2024 5:59 PM EST): - Continue following with specialist and recommend lifestyle interventions. Assessment & Plan (08/11/2023 11:01 AM EDT): -Extensive education completed today with patient. Reviewed lifestyle interventions that are within his control to modify, as well as speaking with GI during next appt regarding results and possible further eval/management. Hep B administered today Assessment & Plan (04/13/2023 7:58 PM EST): -Extensive education completed today with patient. Reviewed lifestyle interventions that are within his control to modify, as well as speaking with GI during next appt regarding results and possible further eval/management Assessment & Plan (03/12/2023 12:28 PM EDT): ?? Extensive conversation and education with patient regarding progression of liver disease and the current results of his recent blood work and ultrasound ?? Plan to follow up in 2-4 weeks for Hep B and Hep A IZ ?? 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 Cordova at [facility] Advanced COPD Last exacerbation: 12/07/22, hospitalized for sepsis / PNA / acute on chronic respiratory failure Treatment regimen: Spiriva Handihalor 1 inhalation daily Symbicort 160-4.5 mcg/act 2 puffs BID (plan to switch back to Advair 500-50 one inh bid pending insurance coverage) Combivent Respimat 20-100mcg/act QID Prednisone 5-10 mg daily ProAir 2 puffs Q 4-6 hours p.r.n. only as emergency rescue inhaler Continues on supplemental oxygen: 2.5-3L O2 at rest, 4L with activity Assessment & Plan (05/26/2024 5:53 PM EST): Cont following with specialist. Reports Advair more effective than Symbicort. PA being processed through Pul. Assessment & Plan (08/11/2023 11:12 AM EDT): Pt reports that due to insurance, some of his inhalers recently changed. He will bring them in next time for update of med list/review Assessment & Plan (12/14/2022 4:37 PM EDT): - most recent exacerbation on 12/07/22, hospitalized for sepsis / pneumonia / acute on chronic respiratory failure - continue following with Dr. Cordova; pt states he has an upcoming appt - suggested to discus with Dr. Cordova regarding to Spiriva / LAMA alternative, possibly Trilegy (pt likes Advair) - continue Advair - continue DuoNeb or albuterol neb ATC and wean to prn once stable - currently on prednisone taper to maintenance dose - continue supplemental oxygen Hyperlipidemia 03/22/2017 Chronic back pain 04/03/2012 Nondependent alcohol abuse, in remission 012 Onychomycosis due to dermatophyte 12/08/2011 Gastroesophageal reflux disease 11/10/2011 Overview (01/26/2023): ?? Following with GI ?? Continues with omeprazole 40mg BID Hypertension 11/10/2011 Overview (02/17/2024): BP goal: < 140/90 mmHg Continue with the following medications: Metoprolol tartrate 25mg BID Atorvastatin 20mg nightly -Hx of aortic root dilation (see associated dx) -NM Perfusion study Dec 2023 - Dr. Joseph. Likely normal myocardial perfusion, no definitive evidence of ischemia or infarction. EF 74% with stress, 69% at rest. Assessment & Plan (02/17/2024 8:54 PM EDT): Well controlled, cont as above Assessment & Plan (01/26/2023 6:32 PM EDT): BP goal: < 140/90 mmHg Continue with the following medications: ?? Metoprolol tartrate 25mg BID ?? Atorvastatin 20mg nightly -Concurrent history of aortic root dilation -Last available Cards consult note from Feb 2020, with plan for repeat Echo x 1 year ? aortic root and ascending aorta are dilated and measuring up to 37 and 41 mm (compared to 37 and 39 mm 1 year ago) - ASHWIN PASCUAL -Discuss with pt at next appt if he has had follow up since -ED precautions Assessment & Plan (12/14/2022 4:37 PM EDT): - continue treatment per PCP Resolved Problems Problem Noted Date Diagnosed Date Resolved Date Fall 08/08/2023 08/09/2023 Hypoxemia 08/08/2023 08/09/2023 Physical deconditioning 08/08/202307/27 Pre-op evaluation 08/08/2023 08/09/2023 Assessment & Plan (08/08/2023 3:16 PM EDT): Patients without any known cardiac risk factors (will undergo low risk surgery, no hx of ischemic heart disease, no h/o CVD, no h/o CHF, & no insulin dependent diabetes mellitus or known renal failure). According to the RCRI, this number of risk factors stratifies the patient to Class O, which carries a 0.4% risk of major CV complications. In this case, CV Risk is low for the intended procedure. Patient may proceed with eye surgery under MAC. Hepatic fibrosis 07/08/2019 08/11/2023 Chronic mental disorder 10/04/201207/27 Corns and callosities 11/10/20112023 Encounters Date Type Department Care Team Description 06/21/2024 3:15 PM EST Office Visit [facility] [address] [place] [address] Ruchi Alexandre FNP Closed fracture of multiple ribs of right side with routine healing, subsequent encounter (Primary Dx); Cellulitis of lower extremity, unspecified laterality 06/21/2024 Travel 06/20/2024 Telephone [facility] [address] [place] [address] Tom Renee MA Chart Prep from Last 3 Months Immunizations Name Administration Dates Next Due Hep A, Adult 03/22/2023 Hep B, adult 08/09/2023,,03/14/2007,10/24,08/08/2006 Influenza High-dose Quadriva lent Preservative Free 02/28/2022 Influenza injectable quadriv alent IIV4 with preservative 03/01/2018,02/24/2016,05/12/2015 Influenza injectable quadriv alent preservative free 05/09/2023,03/23/2021,04/13/2020,03/01,03/22/2017 Influenza, High Dose Seasona l, Preservative Free 05/20/2024 Influenza, IIV3, injectable 04/01/2014, 1 Influenza, Split (incl. saira fied surface antigen) 03/14/2013,04/03/2012 Pfizer Covid-19 Vaccine 12+ 05/20/2024, 3 Pneumococcal Polysaccharide PPSV23 02/16/2009, Tdap 10/21/2010 Social History Tobacco Use Types Packs/Day Years Used Date Smoking Tobacco: Former Cigarettes Passive Smoke Exposure: Never Smokeless Tobacco: Never Tobacco Cessation:Counseling Given: Not Answered Alcohol Use Standard Drinks/Week Comments Never 0 (1 standard drink = 0.6 oz pur e alcohol) Depression Answer Date Recorded Patient Health Questionnaire-9 Score 0 02/16/2024 Patient Health Questionnaire-9 Score 0 02/16/2024 Last PHQ-9: Questionnaire Data Not on file 0 02/16/2024 Housing Stability Answer Date Recorded What is your housing situation today? I have alfredo preston 02/16/[address] you li ve. Do you have problems with any of the following? None of the above 02/16/2024 Food Insecurity Answer Date Recorded Within the past 12 months, y ou worried that your food would run out before you got money to buy more: Never True 02/16/2024 Within the past 12 months,th e food you bought just didn't last and you didn't have enough money to get more: Never True Transportation Answer Date Recorded In the past 12 months, has l ack of transportation kept you from medical appts, meetings, work or from getting things needed for daily living? No 02/16/2024 Utilities Answer Date Recorded In the past 12 months, has t he electric, gas, oil or water company threatened to shut off services in your home? No 02/16/2024 Depression Answer Date Recorded Patient Health Questionnaire-2 Score 0 02/16/2024 Internet Access Answer Date Recorded Internet Access Q1 Yes 02/16/2024 Internet Access Q2 Not on file 02/16/2024 Sex and Gender Information Value Date Recorded Sex Assigned at Male 03/28/2022 10:19 AM EDT Legal Sex Male 10:19 AM EDT Gender Identity Male 03/28/2022 10:19 AM EDT Sexual Orientation Straight 03/28/2022 10 :19 AM EDT Last Filed Vital Signs Vital Sign Reading Time Taken Comments Blood Pressure 120/75 06/21/2024 3:25 PM EST Pulse 76 06/21/2024 3:25 PM EST Temperature 36.3 ??C (97.3 ??F) 06/21/2024 3:25 PM ES T Respiratory Rate 26 06/21/2024 3:25 PM EST Oxygen Saturation 96% 06/21/2024 3:25 PM EST Inhaled Oxygen Concentration - - Weight 81.8 kg (180 lb 6 oz) 06/21/2024 3:25 PM EST Height 177.8 cm (5' 10 ) 06/21/2024 3:25 PM EST Body Mass Index 25.88 06/21/2024 3:25 PM EST Plan of Treatment Upcoming Encounters Date Type Department Care Team (Late st Contact Info) Description 09/27/2024 3:30 PM EDT Office Visit [facility] [address] [place] [address] Ruchi Alexandre, TRANSACTION COORDINATOR [address] [place] [address] Health Maintenance Due Date Last Done Comments CT Colonography 1958 FIT DNA/Cologuard 1958 FIT 1958 FOBT 1958 Lipid Panel 1960 Sigmoidoscopy 1960 Zoster Vaccines (1 of 2) 02/16/2008 Pneumococcal Vaccine: 50+ Years (2 of 2 - PCV) 02/16/2010 02/16/2009, 05/01/2006 RSV Patients and Patients Aged 60 years or older (1 - Risk 60-74 years 1-dose series) 2018 DTaP/Tdap/Td Vaccines (2 - Td or Tdap) 10/21/2020 10/21/2010 Hepatitis A Vaccines (2 of 2 - Risk 2-dose series) 09/21/2023 03/22/2023 Depression Screening 2025 02/16/2024, 02/16/20 SDOH Screening 2025 02/16/2024 Alcohol/Substance Use Screening 05/20/2025 05/20/2024 Tobacco Screening 06/21/2025 06/21/2024 Colonoscopy 04/16/2028 04/16/2018 Colorectal Cancer Screening 04/16/2028 Hepatitis C Screening Completed 02/03/2023 Hepatitis B Vaccines Completed 08/09/2023, 03/22/2023, 03/14/2007, Additional history exists COVID-19 Vaccine Completed 05/20/2024, 04/2023, 03/28/2022, Additional history exists Influenza Vaccine Completed 05/20/2024, , 02/28/2022, Additional history exists HIB Vaccines Aged Out No longer eligi ble based on patient's age to complete this topic HPV Vaccines Aged Out No longer eligi ble based on patient's age to complete this topic IPV Vaccines Aged Out No longer eligi ble based on patient's age to complete this topic Meningococcal Vaccine Aged Out No vita srinivasan eligible based on patient's age to complete this topic RSV under 20 months Aged Out No longe r eligible based on patient's age to complete this topic Rotavirus Vaccines Aged Out No longer eligible based on patient's age to complete this topic Procedures Procedure Name Priority Date/Time Associated Diagnosis Comments HEPATITIS C AB W/REFL TO HCV RNA, QN, PCR Routine 02/03/2023 3:24 PM EDT Thrombocytopenia (CMS/HCC) Hepatic fibrosis HM COLONOSCOPY Routine 04/16/2018 8:27 AM EST Healthcare maintenance from Last 3 Months or Most Recently Relevant to Health Maintenance Results * Hepatitis C Antibody with Reflex to HCV, RNA, Quantitative, Real-Time PCR (02/03/2023 3:24 PM EDT) Hepatitis C Antibody Nonreactive Nonreactive [facility] Comment:Antibodies to HCV no t detected; does not exclude early acuteHCV infection. Blood Venous blood specimen / Unknown 02/03/2023 3:24 PM EDT 02/03/2023 4:05 PM EDT us Isabella Chiu MD LAB BLOOD ORDERABLES Final Resul t [facility] [address] [place] [address] [phone] from Last 3 Months or Most Recently Relevant to Health Maintenance Insurance MEDICARE [facility] Care Teams Assembler Installer Structures Relationship Specialty Start Date End Date Ruchi Alexandre FNP [address] [place] [address] PCP - General Family Medicine 07/19/22 Dr. Chirag Cordova Pulmonary Disease 05/26/24
--- OUTSIDE RECORDS SUMMARY | 2024-09-12 16:35 | XMS_ITS | Encounter Summary ---
Author Organization [employer] Address [address] [facility] [address] [place] [address] Care Team Providers Care Voice Instructor Name Role Phone Ruchi Alexandre Primary Care Provider [phone] Encounter Details Date Type Department Care Team ([facility] st Contact Info) Description 06/27/2023 Telephone [facility] [address] [place] [address] Ruchi Alexandre FNP [address] [place] [address] Social History Tobacco Use Types Packs/Day Years Used Date Smoking Tobacco: Former Cigarettes Passive Smoke Exposure: Never Smokeless Tobacco: Never Alcohol Use Standard Drinks/Week Comments Never 0 (1 standard drink = 0.6 oz pur e alcohol) Depression Answer Date Recorded Patient Health Questionnaire-9 Score 5 11/03/2022 Housing Stability Answer Date Recorded What is your housing situation today? I have alfredo preston 03/13/[address] you li ve. Do you have problems with any of the following? None of the above 03/13/2023 Food Insecurity Answer Date Recorded Within the past 12 months, y ou worried that your food would run out before you got money to buy more: Never True 03/13/2023 Within the past 12 months,th e food you bought just didn't last and you didn't have enough money to get more: Never True Transportation Answer Date Recorded In the past 12 months, has l ack of transportation kept you from medical appts, meetings, work or from getting things needed for daily living? No 03/13/2023 Utilities Answer Date Recorded In the past 12 months, has t he [employer], gas, oil or water company threatened to shut off services in your home? No 03/13/2023 Depression Answer Date Recorded Patient Health Questionnaire-2 [...] Description 09/27/2024 3:30 PM EDT Office Visit [facility] [address] [place] [address] Ruchi Alexandre FNP [address] [place] [address] documented as of this encounter Visit Diagnoses Not on filedocumented in this encounter Additional Health Concerns Assessment Noted Time PHQ-9 Depression Total Score: 5 11/04/19 23 1:33 PM EDT documented as of this encounter Care Teams Voice Instructor Relationship Specialty Start Date End Date Ruchi Alexandre FNP [address] [place] [address] PCP - General Family Medicine 07/19/22 Dr. Chirag Cordova Pulmonary Disease 05/26/24 documented as of this encounter
--- OUTSIDE RECORDS SUMMARY | 2024-09-12 16:35 | XMS_ITS | Clinical Summary ---
Author Organization [address] [facility] Address [address] [place] [address] Phone Care Team Providers Care Instructional Technology Coordinator Name Role Phone Ruchi Alexandre RN Primary Care Provider Allergies No known active allergies Medications clotrimazole (LOTRIMIN) 1 % cream Apply to skin and toenails daily for 12 weeks 10/20/2023 Active Encounters Date Type Department Care Team Description 08/21/2024 3:30 PM EDT Office Visit Orthopedic Surgery [facility] [address] [phone] Jhonatan Fountain, DPM Closed nondisplaced fracture of fourth metatarsal bone of right foot, initial encounter (Primary Dx); Dermatophytosis of nail; Pain in toe of right foot; Pain in toe of left foot; Bilateral femoral artery stenosis (CMS/HCC V24) from Last 3 Months Immunizations Name Administration Dates Next Due COVID-19 (Moderna/Spikevax) 12yo and older 03/28 Social History Tobacco Use Types Packs/Day Years Used Date Smoking Tobacco: Never Assessed Sex and Gender Information Value Date Recorded Sex Assigned at Not on file Legal Sex Male 3:18 AM EST Gender Identity Not on file Sexual Orientation Not on file Last Filed Vital Signs Vital Sign Reading Time Taken Comments Blood Pressure - - Pulse - - Temperature - - Respiratory Rate - - Oxygen Saturation - - Inhaled Oxygen Concentration - - Weight 87.1 kg (192 lb) 08/21/2024 3:53 PM EDT Height 177.8 cm (5' 10 ) 08/21/2024 3:53 PM EDT Body Mass Index 27.55 08/21/2024 3:53 PM EDT Plan of Treatment Upcoming Encounters Date Type Department Care Team ([facility] st Contact Info) Description 09/25/2024 3:00 PM EDT Office Visit Orthopedic Surgery - [place] [address] [phone] Jhonatan Fountain, DPM [address] [address] Health Maintenance Due Date Last Done Comments Zoster Vaccines (1 of 2) 02/16/2008 Pneumococcal Vaccine: 50+ Years (2 of 2 - PCV) 02/16/2010 02/16/2009, 05/01/2006 RSV Immunization Adult Patients (1 - Risk 60-74 years 1-dose series) 2018 DTaP,Tdap,and Td Vaccines (2 - Td or Tdap) 10/21/2020 10/21/2010 Abdominal Aortic Aneurysm (AAA) Screen 05/01/2022 Cholesterol Screening (Lipid Panel) 05/01/2022 Colorectal Cancer Screening: Colonoscopy 05/01/2022 Medicare Annual Wellness Visit 05/01/2022 Social Influencers of Health Screening 05/01/2022 Falls Risk Assessment 2023 Hepatitis A Vaccines (2 of 2 - Risk 2-dose series) 09/21/2023 03/22/2023 Depression Screening 2025 02/16/2024 Hypertension/CHF/CAD Annual BMP Blood Test 05/23/2025 05/23/2024, 07/24/2023 Hepatitis C Screening Completed 02/03/2023, 023 Hepatitis B Vaccines Completed 08/09/2023, 03/22/2023, 03/14/2007, [...] on patient's age to complete this topic MMR Vaccines Aged Out No longer eligi ble based on patient's age to complete this topic Meningococcal ACWY Vaccine Aged Out N o longer eligible based on patient's age to complete this topic Meningococcal B Vaccine Aged Out No l onger eligible based on patient's age to complete this topic RSV Immunization Patients Under 20 months Aged Out No longer eligible based on patient's age to complete this topic Varicella Vaccines Aged Out No longer eligible based on patient's age to complete this topic Procedures Procedure Name Priority Date/Time Associated Diagnosis Comments ANNUAL BMP BLOOD TEST Routine 07/24/2023 HEPATITIS C SCREENING Routine 02/03/2023 from Last 3 Months or Most Recently Relevant to Health Maintenance Results * Annual BMP Blood Test (07/24/2023) Annual BMP Blood Test Abstracted [facility] Provider HEALTH MAINTENANCE Final Result * Hepatitis C Screening (02/03/2023) Hepatitis C Screening Abstracted Historical Provider HEALTH MAINTENANCE Final Result from Last 3 Months or Most Recently Relevant to Health Maintenance Insurance MEDICAID - [place] MEDICARE Care Teams Instructional Technology Coordinator Relationship Specialty Start Date End Date Ruchi Alexandre RN [address] [place] [address] PCP - General 10/06/23
--- OUTSIDE RECORDS SUMMARY | 2024-09-12 16:35 | XMS_ITS | Encounter Summary ---
Author Organization [employer] Address [address] [facility] [address] [place] [address] Care Team Providers Care Aquaculture Farm Manager Name Role Phone Ruchi Alexandre Primary Care Provider [phone] Reason for Visit * Reason Onset Date Comments Pre-op 06/14/2023 Encounter Details Date Type Department Care Team ([facility] st Contact Info) Description 06/14/2023 Telephone [facility] [address] [place], [place] [phone] Ruchi Alexandre FNP [address] [place] [address] Pre-op Social History Tobacco Use Types Packs/Day Years [...] AM EDT documented as of this encounter Miscellaneous Notes * Telephone Encounter - Pat Vasquez RN - 06/27/2023 3:01 PM EST Incoming call from [facility]. Confirmed information below. L eye scheduled for 08/13 and R eye on 09/04/23 cataract surgery. Last OV notes requested. MAC and Topical anesthesia and labs and EKG up to provider. Preop scheduled for 08/08/23. Office will contact pt to inform of appt. * Telephone Encounter - Pat Vasquez RN - 06/27/2023 11:02 AM EST TC X3 to Herlinda regarding message below. If they return call, please try to reach to out to nurses. Pt prefers PM appt. * Telephone Encounter - Timoteo Sweet - 06/27/2023 8:17 AM EST Tc from Herlinda calling in regards to the message below please call [phone] * Telephone Encounter - Pat Vasquez RN - 06/23/2023 9:07 AM EST TC X2 to Herlinda regarding message below. LVM to return call to nurses. * Telephone Encounter - Jaskaran Abbasi - 06/22/2023 4:32 PM EST Tc from herlinda with [facility] returning Phone call [phone] * Telephone Encounter - Pat Vasquez RN - 06/22/2023 2:32 PM EST TC X1 to [facility] eye regarding pre op needed. LVM to return call as surgery needs to be scheduled anytime between 08/04/23 and pt's surgery date on 08/14/23. * Telephone Encounter - Mariajose Hardy - 06/22/2023 2:03 PM EST Tc from pt requesting status on message below. * Telephone Encounter - Robyn Oconnell - 06/14/2023 3:12 PM EST Date of Surgery: 08/13 for left eye, 09/03 for right eye Surgical procedure being done: Cataract surgery to both Type of anesthesia: MAC and topical Lab needed: up to provider EKG: up to provider Surgeon's name: Dr. moreno Facility name: [facility] eye Surgeon's office number: [phone] Surgeon's office fax number: [phone] Contact name (person you spoke with): Herlinda Appointment needs to be with in 30 days of second surgery. documented in this encounter Plan of Treatment Upcoming Encounters Date Type Department Care Team ([facility] st Contact Info) Description 09/27/2024 3:30 PM EDT Office Visit [facility] [address] [place] [address] Ruchi Alexandre, PARMJIT [address] [place] [address] documented as of this encounter Visit Diagnoses Not on filedocumented in this encounter Additional Health Concerns Assessment Noted Time PHQ-9 Depression Total Score: 5 11/04/19 23 1:33 PM EDT documented as of this encounter Care Teams Aquaculture Farm Manager Relationship Specialty Start Date End Date Ruchi Alexandre FNP [address] [place] [address] PCP - General Family Medicine 07/19/22 Dr. Chirag Cordova Pulmonary Disease 05/26/24 documented as of this encounter
== END 2024-09-12 15:07 | disposition home or self-care (01) ==
LOC: HO.HGI 13:33
PROVIDERS: PCP Registered Nurse; Visit Provider Internal Medicine Gastroenterology
DX: K21.9 Gastro-esophageal reflux disease without esophagitis (principal); K44.9 Diaphragmatic hernia without obstruction or gangrene; K22.2 Esophageal obstruction; K74.60 Unspecified cirrhosis of liver; R82.90 Unspecified abnormal findings in urine
CPT/HCPCS: 99214

== ENCOUNTER → 2024-09-12 13:33 | Outpatient (BNVA) | payer MEDICARE, MEDICAID, SELFPAY | PROVIDERS: PCP Registered Nurse; Visit Provider Internal Medicine Gastroenterology | DX: K21.9 Gastro-esophageal reflux disease without esophagitis (principal); K44.9 Diaphragmatic hernia without obstruction or gangrene; K22.2 Esophageal obstruction; K74.60 Unspecified cirrhosis of liver; J44.9 Chronic obstructive pulmonary disease, unspecified; R82.90 Unspecified abnormal findings in urine; D64.9 Anemia, unspecified; F17.210 Nicotine dependence, cigarettes, uncomplicated; Z99.81 Dependence on supplemental oxygen | CPT/HCPCS: 99212 ==

== ENCOUNTER 2024-09-18 16:05 | Outpatient (AMB) | payer MEDICARE, MEDICAID, SELFPAY ==
--- NOTE | 2024-09-18 16:07 | MHC.OFFVIS ---
Vital Signs 09/18/24 16:08 Height 5 ft 10 in Weight 186 lb 4.65 oz BMI 26.7 BP 98/66 Blood Pressure Location Lt brachial Position Sitting Pulse 76 Pulse Source Pulse Oximeter Pulse Oximetry (%) 90 L Oxygen Delivery Method Nasal Cannula Oxygen Flow Rate 3 Intake Visit Reasons: copd Allergies No Known Allergies [No Known Allergies*] Allergy (Verified 09/18/24 17:00) Medication List - Last Reconciled 09/18/24 by Chirag Cordova MD albuterol sulfate 90 mcg/actuation (Ventolin HFA) 2 puffs inhalation Q4-6H PRN 30 days atorvastatin 20 mg PO BEDTIME budesonide 0.5 mg (2 mL) inhalation BID 30 days clonazepam 1 mg PO BID 30 days dextroamphetamine-amphetamine 10 mg 1 tab PO DAILY ferrous sulfate 324 mg PO DAILY 90 days fluticasone propion-salmeterol 250-50 mcg/dose 1 inh inhalation BID 30 days gabapentin 1,200 mg PO BEDTIME gabapentin 600 mg PO TID ipratropium-albuterol 0.5 mg-3 mg(2.5 mg base)/3 mL 3 mL inhalation Q6-8H PRN lamotrigine 200 mg PO BID metoprolol tartrate 25 mg PO BID naloxone 4 mg/actuation (Narcan) 4 mg intranasal Q2M PRN omeprazole 40 mg PO TID 90 days oxycodone 5 mg PO Q6H PRN paliperidone ER (Invega) 6 mg PO QAM paliperidone ER (Invega) 3 mg PO QNOON prednisone 5 mg PO BID 30 days sildenafil (Viagra) 100 mg PO DAILY PRN tiotropium-olodaterol 2.5-2.5 mcg/actuation (Stiolto Respimat) 2 puffs inhalation Q24H 30 days Do you need a note to return to daycare/school/sports/work: No HPI HPI copd: Details: ANNETTA IS A CASE OF ADVANCED CHRONIC OBSTRUCTIVE PULMONARY DISEASE. HE IS ON [facility] AND O2 CONTINUOUSLY 24 HOURS A DAY. HE IS HERE FOR HIS ROUTINE FOLLOW-UP. LATELY DUE TO INSURANCE COVERAGE ISSUES HE HAS NOT GOTTEN ADVAIR, STIOLTO RESPIMAT WAS ADDED BUT HE TELLS ME TODAY IT DOES NOT HELP HIS BREATHING. HE IS ALSO PROVIDED WITH IPRATROPIUM ALBUTEROL SOLUTION TO USE IN THE NEBULIZER Q 6 HOURS P.R.N. ( tid ) BUT HE CLAIMS THAT IT DOES NOT CONTROL HIS SHORTNESS OF BREATH FOR MORE THAN A FEW RS HOURS. I HAD ORDERED BUDESONIDE SOLUTION TO USE IN THE NEBULIZER TWICE A DAY, BUT HE HAS NOT GOTTEN THIS SO FOR. ANNETTA IS INSISTING ON GOING BACK TO [facility]. HE SAY IS THAT WAS HELPING HIM THE MOST. [facility] Medical History Rib fractures Emphysema lung Hx of hepatic disease Bronchitis Closed head injury Soft tissue injury of right chest wall Hypoxia On beta mariano at home Anxiety Bronchitis Ascending aorta dilatation O2 dependent Personal history of nicotine dependence Pulmonary nodules Hypoxemia COPD (chronic obstructive pulmonary disease) Hiatal hernia without gangrene or obstruction GERD without esophagitis Mass of upper lobe of left lung History of drug abuse History of ETOH abuse Bipolar disorder Hyperlipidemia Hypertension Surgical History History of Achilles tendon repair History of endoscopy History of biopsy History of colonoscopy History of repair of hiatal hernia (~06/01/18) Family History Father History of heart attack Mother History of COPD Sister History of cancer Brother Hx of cancer of lung Social History Household Members: Significant Other Housing: House Do you presently have visiting nurse or other home services: No Alcohol intake: never Comment: refusing bed alarm Patient Tobacco Use Status: Former Tobacco user Tobacco use type: Cigarette Second Hand Smoke Exposure: No Advance Directives Date on File: 12/08/22 service: No Review of Systems Const All systems reviewed & are unremarkable except as noted in HPI and below Eyes Reports no additional complaints ENT Reports nasal congestion (Mild off and on) Card Denies chest pain, Denies irregular heart rhythm and Denies leg edema Resp Reports as per HPI GI Reports no additional complaints Reports no additional complaints Musc Reports no additional complaints Skin/Breast Reports system reviewed and no additional complaints, except as documented Neuro Reports no additional complaints Psych Reports anxiety and Reports other (Bipolar disorder, stable and controlled) Endo Reports no additional complaints Physical Exam Vital Signs: Last Vital Signs Pulse 76 09/18/24 16:08 BP 98/66 09/18/24 16:08 Pulse Ox 90 L 09/18/24 16:08 Oxygen Delivery Method Nasal Cannula 09/18/24 16:08 Oxygen Flow Rate 3 09/18/24 16:08 BMI result Body Mass Index 26.7 Const General: comfortable (But anxious), no acute distress, alert and awake Orientation/consciousness: patient oriented x3 HEENT Head: Yes normal to inspection General nose exam: No nasal polyps present and No nasal discharge present Face and sinus: Yes sinuses nontender Mouth: oropharynx normal Throat: Yes posterior oropharynx normal Eyes General: appearance normal, both eyes and all related structures Neck Neck: Yes normal visual inspection, Yes no lymphadenopathy, Yes trachea midline and Yes no JVD Thyroid: Thyroid normal Chest Chest palpation & inspection: normal inspection of the chest, normal palpation of entire chest wall and tenderness (THERE IS MILD TENDERNESS OVER THE RIGHT LOWER COSTAL AREA, NO CREPITUS) Resp Other: Percussion note resonant, breath sounds are very distant and quiet. HE HAS SCATTERED EXPIRATORY WHEEZES AND A FEW CREPITATIONS OVER BOTH BASILAR AREAS. SAME USUAL . Cardio Palpation: normal PMI Rate: regular rate Rhythm: regular rhythm Heart sounds: no gallops and no murmurs GI Palpation (GI): Soft to palpation, nontender, No hepatosplenomegaly present and no masses Auscultation: normal bowel sounds Back/Spine/Pelvis Thoracic/Lumbar Spine: thoracic and lumbar spine normal to inspection and thoraco-lumbar ROM limited Skin General skin exam: no rashes or lesions noted Neuro General: patient oriented x3 and no focal motor deficits Cranial nerves: Yes CN's II-XII intact bilaterally Extrem General: Yes normal to inspection, Yes no clubbing, cyanosis or edema and Yes no calf tenderness Psych Appearance: grossly normal and disheveled (Slightly) Mental Status: other ( ) Speech and movement: Normal speech and movement present Assessment & Plan Assessment & Plan (1) COPD (chronic obstructive pulmonary disease): Comment: Advanced COPD , but doing as good as expected. CT SCAN of the chest showed extensive degree of pulmonary emphysema and fibrosis on both sides, along with traction bronchiectasis, and mediastinal lymphadenopathy. Code(s): J44.9 - Chronic obstructive pulmonary disease, unspecified Category: Medical Plan: WILL DC STIOLTO IT HAS NOT HELPED HIM. WILL DISCUSS WITH HIS INSURANCE AND SEE IF HE CAN GO BACK TO [employer]. 500-51 INHALATION B.I.D. HE IS ADVISED TO USE IPRATROPIUM-ALBUTEROL SOLUTION IN THE NEBULIZER Q 6 HOURS WHILE AWAKE ( T.I.D.) VENTOLIN HFA 2 PUFFS Q 6 HOURS P.R.N. WHEN OUTDOORS. CONTINUE PREDNISONE 5 MG DAILY (2) Hypoxemia: Comment: He had 6 minutes walk today and again it shows that he desaturates very quickly on minimal walking. So he does need to stay on oxygen (on continuous O2, 2 L/min at rest, 2 -4 L/minute with exertion) Code(s): R09.02 - Hypoxemia Category: Medical Plan: CONTINUE O2 2 L/MINUTE AT REST AND MAY INCREASE UP TO 4 L/MINUTE WHEN OUTDOORS ON WALKING. (3) Anxiety: Comment: He is a known case of bipolar disorder and severe anxiety. Code(s): F41.9 - Anxiety disorder, unspecified Category: Medical Plan: CONTINUE TO TAKE ANTI ANXIETY AND PSYCHOACTIVE MEDS. INCLUDING PALIPERIDONE ER 6 MG P.O. IN THE MORNING AND 3 MG AT KNOWN LAMOTRIGINE 200 MG B.I.D.. GABAPENTIN 1200 MG AT BEDTIME AND 600 MG T.I.D. (4) Mass of upper lobe of left lung: Comment: HE HAS A CHRONIC MASS IN THE LEFT UPPER LOBE, IT IS STAYING STABLE. Code(s): R91.8 - Other nonspecific abnormal finding of lung field Category: Medical Plan: NO FURTHER WORKUP OR TREATMENT AT THIS TIME (5) Pulmonary nodules: Comment: (waxing/waning nodules b/l - new 1.1cm KAE nodule on 07/27/20 CT) but subsequent CT scan showed resolution. Nodule , 7 x 10 mm nodule in right upper lobe, being monitored closely. Code(s): R91.8 - Other nonspecific abnormal finding of lung field Category: Medical Plan: CONTINUE ANNUAL CT SCAN OF THE LUNG Coding Level of Care Code Est Pt Level 4 (76180) Diagnoses COPD (chronic obstructive pulmonary disease) J44.9 Hypoxemia R09.02 Anxiety F41.9 Mass of upper lobe of left lung R91.8 Pulmonary nodules R91.8
[2024-09-18 16:08] VITALS: BP 98/66; PULSE 76; O2SAT 90; BMI 26.7
--- OUTSIDE RECORDS SUMMARY | 2024-09-18 18:29 | XMS_ITS | Clinical Summary ---
Author Organization [employer] Address [address] [facility] [address] [place] [address] Care Team Providers Care Backup Operator Name Role Phone Ruchi Alexandre PARMJIT Primary Care Provider [phone] Allergies Active Allergy Reactions Criticality Noted Date [...] - May 2023: identified during CEE at [facility] Mood disorder 08/09/2023 Assessment & Plan (08/09/2023 8:22 AM EDT): Followed by Dr. Brendan Ruvalcaba Continues on the following medications through psych: Invega 6mg in the morning, and 3mg in the afternoon Clonazepam 1mg BID Lamotrigene 200mg BID Adderall 1mg daily Closed head injury 08/08/2023 Esophageal stricture 08/08/2023 Hypoxia 08/08/2023 O2 dependent 08/08/2023 Overview (05/26/2024): Prescribed/managed by [facility] Pulm - Dr. Cordova Apr 2024: Rest: 2.5-3 L/min Activity outside of home: 4L/min Former cigarette smoker 08/08/2023 Healthcare maintenance 01/26/2023 Overview (08/11/2023): Colonoscopy: normal (04/16/18, VICKI Mccloud, [facility]). Due 2027 Opto: CEE May 2023 w/ [facility]. No retinopathy. Assessment & Plan (01/26/2023 6:19 PM EDT): ?? Vaccines: rxn to 2nd pneumococcal vaccine, defer at this time. Aortic root dilation 01/26/2023 Overview (02/17/2024): ? Aortic root and ascending aorta are dilated and measuring up to 37 and 41 mm (compared to 37 and 39 mm 1 year ago) - , ASHWIN Villatoro. [facility] Feb 2020 Established with [facility] Cards - Dr. Joseph Plan: annual monitoring [...] of liver 05/24/2019 Overview (05/26/2024): Following with [facility] GI - Dr. Handy Vaccines: Hep A [...] Overview (05/26/2024): Followed by Dr. Cordova at [facility] Advanced COPD Last exacerbation: 12/07/22, hospitalized for [...] Description 06/21/2024 3:15 PM EST Office Visit [facility] [address] [place] [address] Ruchi Alexandre FNP Closed fracture of multiple ribs of right side with routine healing, subsequent encounter (Primary Dx); Cellulitis of lower extremity, unspecified laterality 06/21/2024 Travel 06/20/2024 Telephone [facility] [address] [place] [address] Tom Renee MA Chart Prep from Last [...] PM EDT Office Visit [facility] [address] [place] [address] Ruchi Alexandre, TOOL MAINTENANCE WORKER [address] [place] [address] Health Maintenance Due Date Last Done Comments [...] PM EDT) Hepatitis C Antibody Nonreactive Nonreactive [facility] Comment:Antibodies to HCV no t detected; does not exclude early acuteHCV infection. Blood Venous blood specimen / Unknown 02/03/2023 3:24 PM EDT 02/03/2023 4:05 PM EDT us Isabella Chiu MD LAB BLOOD ORDERABLES Final Resul t [facility] [address] [place] [address] [phone] from Last 3 Months or Most Recently Relevant to Health Maintenance Insurance MEDICARE [facility] Care Teams Backup Operator Relationship Specialty Start Date End Date Ruchi Alexandre FNP [address] [place] [address] PCP - General Family Medicine 07/19/22 Dr. Chirag Cordova Pulmonary Disease 05/26/24
--- OUTSIDE RECORDS SUMMARY | 2024-09-18 18:29 | XMS_ITS | Encounter Summary ---
Author Organization [employer] Address [address] [place] [address] 7[address] [place] [address] Care Team Providers Care Rolling Mill Operator Helper Name Role Phone Ruchi Alexandre PARMJIT Primary Care Provider [phone] Reason for Referral * Imaging (Urgent) - Closed Specialty Diagnoses / Procedures Referred By Melva t Referred To Contact Radiology Diagnoses Thrombocytopenia (CMS/HCC) Hepatic fibrosis Procedures US Abdomen Comp w elastography Isabella Chiu MD [address] [place] [address] Phone: tel: fax: [facility] [address] [place] [address] Phone: tel: fax: Referral ID Status Reason Start Date Expiration Date Visits Re quested Visits Authorized [id number] Closed 01/20/2023 01/20/2024 1 1 Encounter Details Date Type Department Care Team (Late st Contact Info) Description 01/20/2023 Orders Only [facility] MED[facility] [address] [place], [place] [phone] Isabella Chiu MD [address] [place] [address] Thrombocytopenia (CMS/HCC) (Primary Dx); Hepatic [...] Upcoming Encounters Date Type Department Care Team ([facility] st Contact Info) Description 09/27/2024 3:30 PM EDT Office Visit [facility] [address] [place] [address] Ruchi Alexandre FNP [address] [place] [address] Scheduled Orders Name Type Priority Associated Diagnoses [...] PM EDT) Hepatitis C Antibody Nonreactive Nonreactive [facility] Comment:Antibodies to HCV no t detected; does not exclude early acuteHCV infection. Blood Venous blood specimen / Unknown 02/03/2023 3:24 PM EDT 02/03/2023 4:05 PM EDT us Isabella Chiu MD LAB BLOOD ORDERABLES Final Resul t Performing Organization Address [facility] [address]/[facility] Co de Phone Number [facility] [address] [place] [phone] * Hepatitis B Surface Antibody, Qualitative (02/03/2023 3:24 PM EDT) ~Hepatitis B Surface Antibody NONREACTIVE Nonreactive [facility] Comment:Nonreactive: < 8.00 mIU/mL Blood Venous blood specimen / Unknown 02/03/2023 3:24 PM EDT 02/03/2023 4:05 PM EDT Isabella Chiu MD LAB BLOOD ORDERABLES Final Resul t Performing Organization Address [facility] Co de Phone Number [facility] [address] [place] [phone] * Hepatitis B Core Antibody, Total (02/03/2023 3:24 PM EDT) Hepatitis B Core Antibody Nonreactive Nonreactive [facility] Blood Venous blood specimen / Unknown 02/03/2023 3:24 PM EDT 02/03/2023 4:05 PM EDT us Isabella Chiu MD LAB BLOOD ORDERABLES Final Resul t Performing Organization Address [facility] [address]/[facility] Co de Phone Number [facility] [address] [place] [phone] * Hepatitis A Antibody IgG (02/03/2023 3:24 PM EDT) Hepatitis A Antibody IgG Nonreactive Nonreactive [facility] Blood Venous blood specimen / Unknown 02/03/2023 3:24 PM EDT 02/03/2023 4:05 PM EDT us Isabella Chiu MD LAB BLOOD ORDERABLES Final Resul t [facility] [address] [place] [address] [phone] * (ABNORMAL) Liver Fibrosis, FibroTest-ActiTest Panel (02/03/2023 3:24 PM EDT) Liver Fibrosis Score 0.49 [facility] Liver Fibrosis Stage F2 [facility] Liver Fibrosis Interpretation SEE NOTE [facility] Comment:moderate fibrosisFib ro Test Score (f) Metavir Score f>=0 and f<=0.21 : F0 (no fibrosis)f>0.21 and f<=0.27 : F0-F1 (no fibrosis)f>0.27 and f<=0.31 : F1 (minimal fibrosis)f>0.31 and f<=0.48 : F1-F2 (minimal fibrosis)f>0.48 and f<=0.58 : F2 (moderate fibrosis)f>0.58 and f<=0.72 : F3 (advanced fibrosis)f>0.72 and f<=0.74 : F3-F4 (advanced fibrosis)f>0.74 and f<=1.00 : F4 (severe fibrosis) Nec Inflam Act Score 0.02 [facility] Nec Inflam Act Grade A0 [facility] Nec Inflam Act Interpretation SEE NOTE [facility] Comment:no activityActiTest Score (a) Metavir Score a>=0 and a<=0.17 : A0 (no activity)a>0.17 and a<=0.29 : A0-A1 (no activity)a>0.29 and a<=0.36 : A1 (minimal activity)a>0.36 and a<=0.52 : A1-A2 (minimal activity)a>0.52 and a<=0.60 : A2 (significant activity)a>0.60 and a<=0.62 : A2-A3 (significant activity)a>0.62 and a<=1.00 : A3 (severe activity) JDH-Qdudx-8-Macroglo bulin 143 106 - 279 mg/dL [facility] FIB-Haptoglobin 14(A) 43 - 212 mg/dL [facility] FIB-Apolipoprotein A1 148 94 - 176 mg/dL [facility] FIB-Total Bilirubin 0.8 0.2 - 1.2 mg/dL [facility] FIB-GGT 19 3 - 70 U/L [facility] FIB-ALT 7(A) 9 - 46 U/L [facility] Reference ID [id number] [facility] Footnote SEE NOTE [facility] Comment: The reliability of results is [...] and C.The performance characteristics have been determined by[facility] [facility]. Ithas not been cleared or approved by the U.S. Food and DrugAdministration. Performance characteristics refer to theanalytical performance of the test.[employer], [employer], the associated logo, [employer] and all associated [facility] talbot are theregistered trademarks of [employer]. All third partymarks - (R) and (TM) - are the property of their respectiveowners. (C) [id number] [employer]. Allrights reserved.THIS TEST WAS PERFORMED AT:[employer] [id number] ARIS LUDWIG ??[id number] CERVANTES MD,PHD,EUGENE Blood 02/03/2023 3:24 PM EDT 02/03/2023 4:05 PM EDT us Isabella Chiu MD LAB BLOOD ORDERABLES Final Resul t [facility] [address] [place] [address] [phone] * US Abdomen Comp w elastography (01/25/2023 9:55 AM EDT) Anatomical Region Laterality Modality Abdomen Ultrasound 01/25/2023 9:55 AM EDT Narrative 01/26/2023 2:33 PM EDT ? [facility] ?[address] ?[place] [address] ? Ultrasound Report ? Signed ? Patient: Jony Murillo ?MR#: [id number] ?? [id number] ? : 1960 ?Acct:[id number] ? Age/Sex: 62 / M ?ADM Date: 01/25/23 ? Loc: HO.US ? Attending Dr: Isabella Chiu MD ? Ordering Physician: Isabella Chiu MD ?? Date of Service: 01/25/23 ?? Procedure(s): US abdomen comp w elastography ?? Accession Number(s): [id number] ? cc: Isabella Chiu MD ? EXAMINATION: [...] 1430 ? DD/ 0955 ? TD/TT: ? Metal Weather Stripper: SL ? Procedure Note Ambreen, Jenny - 01/26/[address] [address] Ultrasound Report Signed Patient: Betsy Murillo#: [id number] : 8Acct:[id number] Age/Sex: 62 / MADM Date: 01/25/23 Loc: HO.US Attending Dr: Isabella Chiu MD Ordering Physician: Isabella Chiu MD Date of Service: 01/25/23 Procedure(s): US abdomen comp w elastography Accession Number(s): [id number] cc: Isabella Chiu MD EXAMINATION: US COMPLETE [...] in OV> 01/26/23 1430 DD/ 0955 TD/TT: Metal Weather Stripper: PABLO us Isabella Chiu MD IMG US PROCEDURES Final Result documented in this encounter Visit Diagnoses Diagnosis Thrombocytopenia (CMS/HCC)- Primary Unspecified thrombocytopenia 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 Chirag Cordova Pulmonary Disease 05/26/24 documented as of this encounter
--- OUTSIDE RECORDS SUMMARY | 2024-09-18 18:29 | XMS_ITS | Encounter Summary ---
Author Organization [employer] Address [address] [facility] [address] [place] [address] Care Team Providers Care Credit Card Clerk Name Role Phone Ruchi Alexandre Primary Care Provider [phone] Encounter Details Date Type Department Care Team (Late st Contact Info) Description 08/15/[address] [facility] [address] [place] [address] Sarah Estrada LPN Social History Tobacco Use [...] Description 09/27/2024 3:30 PM EDT Office Visit [facility] [address] [place] [address] Ruchi Alexandre FNP [address] [place] [address] documented as of this encounter Procedures Procedure [...] Blood Count 5.3 4.8 - 10.8 X10*3/uL [facility] Red Blood Count 3.39(L) 4.60 - 5.80 X10*6/uL [facility] Hemoglobin 10.3(L) 14.0 - 18.0 g/dl [facility] Hematocrit 33.3(L) 42.0 - 52.0 % [facility] Mean Corpuscular Volume 98.2(H) 80.0 - 98.0 fL [facility] Mean Corpuscular Hemoglobin 30.4 27.0 - 33.0 pg [facility] Mean Corpuscular HGB Conc 30.9(L) 31.0 - 36.0 g/dl [facility] Red Cell Distribution Width 17.5(H) 11.0 - 16.0 % [facility] Platelet Count 88(L) 160 - 400 X10*3/uL [facility] Mean Platelet Volume 13.4(H) 9.4 - 12.4 fL [facility] NRBC Pct Auto 0.0 0.0 - 0.2 /100WBC [facility] NRBC Abs Auto 0.000 0.0 - 0.012 X10*3/uL [facility] Neutrophils % Manual 21(L) 45 - 73 % [facility] Band Neutrophils Percent 6(H) 3 - 5 % [facility] Lymphocytes Percent Manual 13(L) 20 - 40 % [facility] Monocytes Percent Manual 58(H) 2 - 11 % [facility] Myelocytes 2 % [facility] NEUTROPHILS ABSOLUTE MANUAL 1.4(L) 2.0 - 8.3 X10*3/uL [facility] LYMPHOCYTES ABSOLUTE MANUAL 0.7(L) 1.2 - 4.9 X10*3/uL [facility] MONOCYTES ABSOLUTE MANUAL 3.1(H) 0.1 - 1.2 X10*3/uL [facility] Absolute Myelocytes 0.1 X10*/uL [facility] Platelet Estimate DECREASED NORMAL [facility] Platelet Morphology Comment NORMAL [facility] RBC Morphology NOTED [facility] POLYCHROMASIA 1+ (0-2) /OIF [facility] Tear Drop Cells 1+ (0-2) /F [facility] Ovalocytes 1+ (5-14) /[facility] 01/17/2023 4:43 PM EDT 01/17/2023 5:29 PM EDT us Isabella Chiu MD LAB BLOOD ORDERABLES Final Resul t [facility] [address] [place] [address] [phone] * Lactic Acid (12/07/2022 6:57 PM EDT) Lactic Acid 0.9 0.5 - 2.0 mmol/L [facility] 12/07/2022 6:57 PM EDT 12/07/2022 7:01 PM EDT us [facility] External Provider LAB BLO OD ORDERABLES Final Result Performing Organization Address [facility] Co de Phone Number [facility] [address] [place] [address] [phone] * (ABNORMAL) Urinalysis, Complete, with Reflex to Culture (12/07/2022 6:04 PM EDT) Color Urine Dark Yellow [facility] Appearance Urine Clear [facility] PH 6.5 5.0 - 9.0 [facility] Glucose Urine UA Negative Negative mg/dL [facility] Urine Blood Large (3+)(A) Negative [facility] Specific [place] - Urine 1.015 1.005 - 1.025 [facility] Urine Protein 100 (2+)(A) Neg-Trace mg/dL [facility] Urine Ketones Negative Negative mg/dL [facility] Nitrite Urine Negative Negative [facility] Leukocyte Esterase Urine Negative Negative [facility] RBC Urine 6-10(A) 0 - 2 /HPF [facility] Urine WBC 0-5 0 - 5 /HPF [facility] Urine Squamous Epithelial Cell 0-2 0 - 2 /HPF [facility] Urine Bacteria None Seen None Seen [facility] Hyaline Casts, Urine 0-2 0 - 2 /LPF [facility] 12/07/2022 6:04 PM EDT 12/07/2022 6:17 PM EDT Narrative [facility] - 12/07/2022 6:49 PM EDT [id number], Clean Catch [facility] External Provider LAB URI NE ORDERABLES Final Result Performing Organization Address [facility] Co de Phone Number [facility] [address] [place] [phone] * SARS-CoV-2 RNA, Influenza A/B, and RSV RNA, Ql NAAT (12/07/2022 4:10 PM EDT) Pathologist [facility] Influenza A PCR NEGATIVE Negative [facility] Influenza B PCR NEGATIVE Negative [facility] Resp Syncy Virus RNA Qual PCR NEGATIVE Negative [facility] SARS COV2 PCR NEGATIVE Negative [facility] Comment:All test results mus t be [...] use by authorized laboratories.Testing performed on the [employer] GeneXpert utilizingreal-time RT-PCR.All SARS CoV2 and positive influenza A/B results arereported to [facility]. 12/07/2022 4:10 PM EDT 12/07/2022 4:15 PM EDT [facility] Exter nal Provider LAB MICROBIOLOGY - GENERAL ORDERABLES Final Result Performing Organization Address [facility] Co de Phone Number [facility] [address] [place] [phone] * High Sensitivity Troponin I (12/07/2022 4:10 PM EDT) TROPONIN I HIGH SENSITIVITY 20.8 <3.5 - 35.0 ng/L [facility] Comment:The Sheth high sens itivity Troponin-I results should beused in conjunction with other diagnostic information suchas ECG, clinical observations and information, and patientsymptoms to aid in the diagnosis of NV. 12/07/2022 4:10 PM EDT 12/07/2022 4:13 PM EDT us [facility] External Provider LAB BLO OD ORDERABLES Final Result [facility] [address] [place] [address] [phone] * (ABNORMAL) Comprehensive Metabolic Panel (12/07/2022 4:10 PM EDT) Sodium 132(L) 135 - 145 mmol/L [facility] Potassium 3.8 3.3 - 5.1 mmol/L [facility] Chloride 100 96 - 108 mmol/L [facility] Carbon Dioxide 19(L) 22 - 29 mmol/L [facility] Anion Gap 17 12 - 20 [facility] Urea Nitrogen (BUN) 9 9 - 16 mg/dL [facility] Creatinine, Serum 1.04 0.5 - 1.4 mg/dL [facility] Creatinine Clr Calc Pharmacy 74.0 [facility] Comment:eGFR (calculated fro m the MDRD study equation) and eCrCl(calculated from the Cockcroft-Gault equation) are based ondifferent parameters and may not yield comparable results.If eCrCl result is absurd, please check patient'sheight/weight. Estimated Glomerular Filt Rate >60 [facility] Comment:NOTE: For -Am erican individuals, multiply the result by 1.210.Chronic Kidney Disease: Estimated GFR < 60 mL/min/1.35g9Pjvnga Kidney Disease: Estimated GFR < 15 mL/min/1.73m2 Glucose 203(H) 60 - 115 mg/dL [facility] Calcium 9.1 8.4 - 10.2 mg/dL [facility] Bilirubin, Total 3.0(H) 0.0 - 1.0 mg/dL [facility] Aspartate Amino Transferase 81(H) 5 - 37 U/L [facility] Alanine Aminotransferase 15 0 - 40 U/L [facility] Total Protein 6.8 6.5 - 8.0 g/dL [facility] Albumin Level 3.6 3.5 - 5.0 g/dL [facility] Alkaline Phosphatase 68 39 - 117 U/L [facility] 12/07/2022 4:10 PM EDT 12/07/2022 4:13 PM EDT [facility] External Provider LAB BLO OD ORDERABLES Final Result Performing Organization Address [facility] de Phone Number [facility] [address] [place] [phone] * (ABNORMAL) Lactic Acid (12/07/2022 4:10 PM EDT) Lactic Acid 3.6(HH) 0.5 - 2.0 mmol/L [facility] Comment:Critical value for t est(s):LACTA Results called to franklin back by:LUZ Person calling:DORYS Date:12/07/22Time:1637 12/07/2022 4:10 PM EDT 12/07/2022 4:13 PM EDT [facility] External Provider LAB BLO OD ORDERABLES Final Result Performing Organization Address [facility] de Phone Number [facility] [address] [place] [phone] * Slide Review (12/07/2022 4:10 PM EDT) Slide Review VERIFIED [facility] 12/07/2022 4:10 PM EDT 12/07/2022 4:13 PM EDT [facility] External Provider LAB BLO OD ORDERABLES Final Result Performing Organization Address [facility]/ZIP Co de Phone Number [facility] [address] [place] [address] [phone] * (ABNORMAL) CBC auto differential (12/07/2022 4:10 PM EDT) White Blood Count 15.5(H) 4.8 - 10.8 X10*3/uL [facility] Red Blood Count 3.33(L) 4.60 - 5.80 X10*6/uL [facility] Hemoglobin 10.0(L) 14.0 - 18.0 g/dl [facility] Hematocrit 31.7(L) 42.0 - 52.0 % [facility] Mean Corpuscular Volume 95.2 80.0 - 98.0 fL [facility] Mean Corpuscular Hemoglobin 30.0 27.0 - 33.0 pg [facility] Mean Corpuscular HGB Conc 31.5 31.0 - 36.0 g/dl [facility] Red Cell Distribution Width 16.9(H) 11.0 - 16.0 % [facility] Platelet Count 95(L) 160 - 400 X10*3/uL [facility] Mean Platelet Volume 12.7(H) 9.4 - 12.4 fL [facility] Neutrophils Percent Auto 52.8 45 - 73 % [facility] Imm Gran Pct Auto 3.9(H) 0.0 - 0.4 % [facility] Lymphocytes Percent Auto 2.2(L) 20 - 40 % [facility] Monocytes Percent Auto 40.4(H) 2 - 11 % [facility] Eosinophils Percent Auto 0.6 0 - 4 % [facility] Basophils Percent Auto 0.1 0 - 2 % [facility] NRBC Pct Auto 0.0 0.0 - 0.2 /100WBC [facility] Neutrophils Absolute Auto 8.2 2.0 - 8.3 x10*3/uL [facility] Imm Gran Abs Auto 0.60(H) 0.00 - 0.03 X10*3/uL [facility] Lymphocytes Absolute Auto 0.3(L) 1.2 - 4.9 X10*3/uL [facility] Monocytes Absolute Auto 6.2(H) 0.1 - 1.2 X10*3/uL [facility] Eosinophils Absolute Auto 0.1 0.0 - 0.4 X10*3/uL [facility] Basophils Absolute Auto 0.0 0.0 - 0.2 X10*3/uL [facility] NRBC Abs Auto 0.000 0.0 - 0.012 X10*3/uL [facility] 12/07/2022 4:10 PM EDT 12/07/2022 4:13 PM EDT us [facility] External Provider LAB BLO OD ORDERABLES Edited Result - Final [facility] [address] [place] [address] [phone] * Hematoxylin and Eosin Stain (11/11/2022 1:27 PM EDT) 11/11/2022 1:27 PM EDT 11/11/2022 2:00 PM EDT Memo [facility] - 11/15/2022 10:21 AM EDT ----- ------- Name: Jony Murillo ?Age/Sex: 62/M ? : 1960 Unit#: [id number] ?? Attend Dr: Melissa Handy MD ?Re11/11/22 ?Status: DEP SDC ? Location: HO.SSS ?Disch: ? ----- ------- SPEC : [id number] ? RECD: 11/11/22-1400 ? STATUS: ??SOUT ? REQ NUM: [id number] ? FLORENTINO: 11/11/22-7 ? SUBM DR: Melissa Handy MD ? ENTERED: ??11/11/22-2296 ?SP TYPE: Surgical ? OTHR DR: Ruchi Alexandre ROAD MACHINE OPERATOR ? ORDERED: ??HE Stain/2, Gross Micro L4 [...] To: ?? Melissa Handy MD ?? [address] ?? [place] [address] ?? [phone] ?? Ruchi [address]re RO[address] MACHINE OPERATOR ?? [address] ?? [place] ?? [phone] ? CONTINUED ON NEXT PAGE ----- ------- Name: Jony Murillo ?Age/Sex: 62/M ? : 1960 Unit#: [id number] ?? Attend Dr: Melissa Handy MD ?Re11/11/22 ?Status: DEP SDC ? Location: HO.SSS ?Disch: ? ----- ------- SPEC : [id number] ? RECD: 11/11/22-1400 ? STATUS: ??SOUT ? REQ NUM: [id number] ? FLORENTINO: 11/11/22-7 ? SUBM DR: Melissa Handy MD ? ENTERED: ??11/11/22-1416 ?SP TYPE: Surgical ? OTHR DR: Ruchi Alexandre ROAD MACHINE OPERATOR ? ORDERED: ??HE Stain/2, Gross Micro L4 ? COMMENTS: One of the tissue fragments is extremely tiny and may be ?difficult to identify during processing and may fail to ?survive processing. ----- ------- Signed (signature on file) Lloyd Cook MD 11/15/22 1021 ? ----- ------- ? END OF REPORT ? us [facility] External Provider LAB BLO OD ORDERABLES Final Result [facility] [address] [place] [address] [phone] * (ABNORMAL) Basic Metabolic Panel, Fasting (10/07/2022 10:31 AM EDT) Sodium 142 135 - 145 mmol/L [facility] Potassium 3.7 3.3 - 5.1 mmol/L [facility] Chloride 111(H) 96 - 108 mmol/L [facility] Carbon Dioxide 24 22 - 29 mmol/L [facility] Anion Gap 11(L) 12 - 20 [facility] Urea Nitrogen (BUN) 6(L) 9 - 16 mg/dL [facility] Creatinine, Serum 0.86 0.5 - 1.4 mg/dL [facility] Creatinine Clr Calc Pharmacy 89.5 [facility] Comment:eGFR (calculated fro m the MDRD study equation) and eCrCl(calculated from the Cockcroft-Gault equation) are based ondifferent parameters and may not yield comparable results.If eCrCl result is absurd, please check patient'sheight/weight. Estimated Glomerular Filt Rate >60 [facility] Comment:NOTE: For -Am erican individuals, multiply the result by 1.210.Chronic Kidney Disease: Estimated GFR < 60 mL/min/1.46j8Utoclq Kidney Disease: Estimated GFR < 15 mL/min/1.73m2 Glucose Fasting 104(H) 60 - 99 mg/dL [facility] Comment:A fasting glucose fr om 100-125 mg/dl is considered impaired(pre-diabetes). Calcium 8.0(L) 8.4 - 10.2 mg/dL [facility] 10/07/2022 10:3 1 AM EDT 10/07/2022 10:34 AM EDT [facility] External Provider LAB BLO OD ORDERABLES Final Result [facility] [address] [place] [address] [phone] * (ABNORMAL) CBC (10/07/2022 10:31 AM EDT) White Blood Count 4.4(L) 4.8 - 10.8 X10*3/uL [facility] Red Blood Count 3.33(L) 4.60 - 5.80 X10*6/uL [facility] Hemoglobin 10.1(L) 14.0 - 18.0 g/dl [facility] Hematocrit 32.4(L) 42.0 - 52.0 % [facility] Mean Corpuscular Volume 97.3 80.0 - 98.0 fL [facility] Mean Corpuscular Hemoglobin 30.3 27.0 - 33.0 pg [facility] Mean Corpuscular HGB Conc 31.2 31.0 - 36.0 g/dl [facility] Red Cell Distribution Width 17.2(H) 11.0 - 16.0 % [facility] Platelet Count 105(L) 160 - 400 X10*3/uL [facility] Mean Platelet Volume 12.4 9.4 - 12.4 fL [facility] NRBC Pct Auto 0.0 0.0 - 0.2 /100WBC [facility] NRBC Abs Auto 0.000 0.0 - 0.012 X10*3/uL [facility] 10/07/2022 10:3 1 AM EDT 10/07/2022 10:34 AM EDT [facility] External Provider LAB BLO OD ORDERABLES Final Result [facility] [address] [place] [address] [phone] * Hematoxylin and Eosin Stain (09/26/2022 3:14 PM EDT) 09/26/2022 3:14 PM EDT 09/27/2022 6:57 AM EDT Narrative [facility] - 09/29/2022 11:09 AM EDT ----- ------- Name: Jony Murillo ?Age/Sex: 62/M ? : 1960 Unit#: [id number] ?? Attend Dr: Melissa Handy MD ?Re09/26/22 ?Status: REG SDC ? Location: HO.SSS ?Disch: ? ----- ------- SPEC : [id number] ? RECD: 09/27/22-656 ? STATUS: ??SOUT ? REQ NUM: [id number] ? FLORENTINO: 09/26/22 ? SUBM DR: Melissa Handy MD ? ENTERED: ??09/27/22 ?SP TYPE: Surgical ? OTHR DR: Ruchi Alexandre ROAD MACHINE OPERATOR ? ORDERED: ??HE Stain/2, Gross Micro L4 [...] semitranslucent, soft, hyperemic and congested, fagan and fgaan-pink, irregular tissue fragments, ranging from minute - 0.4 cm. in greatest dimension, which are submitted in toto in a single cassette labeled A. KG Copies To: ?? Melissa Handy MD ?? [address] [place] [address] DrPrasanth ?? [place] [address] ?? [phone] ?? Ruchi Alexandre ?? [address] ?? [place] ?? [phone] ? CONTINUED ON NEXT PAGE ----- ------- Name: Jony Murillo ?Age/Sex: 62/M ? : 1960 Unit#: [id number] ?? Attend Dr: Melissa Handy MD ?Re09/26/22 ?Status: REG SDC ? Location: HO.SSS ?Disch: ? ----- ------- SPEC : [id number] ? RECD: 09/27/22 ? STATUS: ??SOUT ? REQ NUM: [id number] ? FLORENTINO: 09/26/22-1513 ? SUBM DR: Melissa Handy MD ? ENTERED: ??09/27/22 ?SP TYPE: Surgical ? OTHR DR: Ruchi AlexandreP ? ORDERED: ??HE Stain/2, Gross Micro L4 ? COMMENTS: Two of the tissue fragments are extremely tiny and may be ?difficult to identify during processing and may fail to ?survive processing. ----- ------- Signed (signature on file) Lloyd Cook MD 09/29/22 8132 ? ----- ------- ? END OF REPORT ? us [facility] External Provider LAB BLO OD ORDERABLES Final Result [facility] [address] [place] [address] [phone] * Gross and Microscopic Level 4 (08/19/2022 1:41 PM EDT) 08/19/2022 1:41 PM EDT 08/19/2022 2:20 PM EDT [facility] - 09/12/2022 12:16 PM EDT ----- ------- Name: Jony Murillo ?Age/Sex: 62/M ? : 1960 Unit#: [id number] ?? Attend Dr: Melissa Handy MD ?Re08/19/22 ?Status: DEP SDC ? Location: HO.SSS ?Disch: ? ----- ------- SPEC : [id number] ? RECD: 08/19/22-1419 ? STATUS: ??SOUT ? REQ NUM: [id number] ? FLORENTINO: 08/19/22-1341 ? SUBM DR: Melissa Handy MD ? ENTERED: ??08/19/22-1442 ?SP TYPE: Surgical ? OTHR : ? ORDERED: ??Gross Micro L4, Cytokeratin, IHC, Add. immunos/2, Specials Gr. 1, PASF ? COMMENTS: Block A sent to [facility] for HSV ?? CMV IHC's on 08/23/22. ?One of the tissue fragments is extremely tiny and may be ?difficult to identify during processing and may fail to ?survive processing. ?Addendum Addendum ??1 ?Entered: 09/12/22-1215 Immunostains for HSV and CMV are non-reactive. ??No change is made to the diagnosis. Technical services for immunohistochemistry studies performed at [facility] [address] Yovanny Hylton [place]; CLIA #[id number] Addendum Signed (signature on file) Lloyd Cook [...] Microscopic sections reviewed. ??Pancytokeratin immunostain highlights only zuni benign epithelium; no fungi are seen, supported by PAS stain. ? Material Received ?? Esophageal stricture bx's ? CONTINUED ON NEXT PAGE ----- ------- Name: Jony Murillo ?Age/Sex: 62/M ? : 1960 Unit#: [id number] ?? Attend Dr: Melissa Handy MD ?Re08/19/22 ?Status: DEP SDC ? Location: HO.SSS ?Disch: ? ----- ------- SPEC : [id number] ? RECD: 08/19/22-1420 ? STATUS: ??SOUT ? REQ NUM: [id number] ? FLORENTINO: 08/19/22-1341 ? SUBM DR: Melissa [...] ----- ------- ? END OF REPORT ? [facility] External Provider LAB [facility] Final Result [facility] [address] [place] [address] [phone] documented in this encounter Visit Diagnoses Not on filedocumented in this encounter Care Teams Credit Card Clerk Relationship Specialty Start Date End Date Ruchi Alexandre FNP [address] [place] [address] PCP - General Family Medicine 07/19/22 Dr. Chirag Cordova Pulmonary Disease 05/26/24 documented as of this encounter
--- OUTSIDE RECORDS SUMMARY | 2024-09-18 18:29 | XMS_ITS | Encounter Summary ---
Author Organization [employer] Address [address] [facility] [address] [place] [address] Care Team Providers Care [employer] Teacher'S Aide Name Role Phone Ruchi Alexandre Primary Care Provider [phone] Reason for Visit * Reason Onset Date Comments Pre-op 06/14/2023 Encounter Details Date Type Department Care Team ([facility] st Contact Info) Description 06/14/2023 Telephone [facility] [address] [place], [place] [phone] Ruchi Alexandre FNP [address] [place] [address] Pre-op Social History Tobacco Use Types Packs/Day [...] regards to the message below please call [phone] * Telephone Encounter - Pat Vasquez RN - 06/23/2023 9:07 AM EST TC X2 to Herlinda regarding message below. LVM to return call to nurses. * Telephone Encounter - Jaskaran Abbasi - 06/22/2023 4:32 PM EST Tc from herlinda with [facility] returning Phone call [phone] * Telephone Encounter - Pat Vasquez RN - 06/22/2023 2:32 PM EST TC X1 to [facility] eye regarding pre op needed. LVM to [...] provider Surgeon's name: Dr. moreno Facility name: [facility] eye Surgeon's office number: [phone] Surgeon's office fax number: [phone] Contact name (person you spoke with): Herlinda Appointment needs to be with in 30 days of second surgery. documented in this encounter Plan of Treatment Upcoming Encounters Date Type Department Care Team ([facility] st Contact Info) Description 09/27/2024 3:30 PM EDT Office Visit [facility] [address] [place] [address] Ruchi Alexandre, PARMJIT [address] [place] [address] documented as of this encounter Visit Diagnoses Not on filedocumented in this encounter Additional Health Concerns Assessment Noted Time PHQ-9 Depression Total Score: 5 11/04/19 23 1:33 PM EDT documented as of this encounter Care Teams [employer] Teacher[employer] Aide Relationship Specialty Start Date End Date Ruchi Alexandre FNP [address] [place] [address] PCP - General Family Medicine 07/19/22 Dr. Chirag Cordova Pulmonary Disease 05/26/24 documented as of this encounter
--- OUTSIDE RECORDS SUMMARY | 2024-09-18 18:29 | XMS_ITS | Clinical Summary ---
Author Organization 175 [facility] Address 175 [place] [address] Phone Care Team Providers Care Asset Protection Assistant Name Role Phone Ruchi Alexandre RN Primary Care Provider Allergies No known active allergies Medications clotrimazole (LOTRIMIN) 1 % cream Apply to skin and toenails daily for 12 weeks 10/20/2023 Active Encounters Date Type Department Care Team Description 08/21/2024 3:30 PM EDT Office Visit Orthopedic Surgery [facility] [address] [phone] Jhonatan Fountain, DPM Closed nondisplaced [...] Care Team (Late st Contact Info) Description 09/25/2024 3:00 PM EDT Office Visit Orthopedic Surgery - [place] [address] [phone] Jhonatan Fountain, DPM [address] [address] Health Maintenance Due Date Last Done Comments [...] 2 - Risk 2-dose series) 09/21/2023 03/22/2023 COVID-19 Vaccine ( season) 2024 05/20/2024, 05/09/2023, 03/28/2022, Additional history exists Depression Screening 2025 02/16/2024 Hypertension/CHF/CAD Annual BMP Blood Test 05/23/2025 05/23/2024, 07/24/2023 Hepatitis C Screening Completed 02/03/2023, 023 Hepatitis B Vaccines Completed 08/09/2023, 03/22/2023, 03/14/2007, Additional history exists Influenza Vaccine Completed 05/20/2024, [...] Test (07/24/2023) Annual BMP Blood Test Abstracted Historical Provider MD HEALTH MAINTENANCE Final Result * Hepatitis C Screening (02/03/2023) Hepatitis C Screening Abstracted Historical Provider MD HEALTH MAINTENANCE Final Result from Last 3 Months or Most Recently Relevant to Health Maintenance Insurance [place] - [place]ICARE Care Teams Asset Protection Assistant Relationship Specialty Start Date End Date Ruchi Alexandre RN [address] [place] [address] PCP - General 10/06/23
--- OUTSIDE RECORDS SUMMARY | 2024-09-18 18:29 | XMS_ITS | Encounter Summary ---
Author Organization [employer] Address [address] [place] [address] Care Team Providers Care Gradall Operator Name Role Phone Ruchi Alexandre Primary Care Provider [phone] Encounter Details Date Type Department Care Team ([facility] st Contact Info) Description 06/27/2023 Telephone [facility] [address] [place] [address] Ruchi Alexandre FNP [address] [place] [address] Social History Tobacco Use Types Packs/Day Years [...] the past 12 months, has t he [employer], gas, oil or water company threatened to [...] Description 09/27/2024 3:30 PM EDT Office Visit [facility] 505 [place] [address] Ruchi Alexandre FNP 505 [place] [address] documented as of this encounter Visit Diagnoses Not on filedocumented in this encounter Additional Health Concerns Assessment Noted Time PHQ-9 Depression Total Score: 5 11/04/19 23 1:33 PM EDT documented as of this encounter Care Teams Gradall Operator Relationship Specialty Start Date End Date Ruchi Alexandre FNP 230 [place] [address] PCP - General Family Medicine 07/19/22 Dr. Chirag Cordova Pulmonary Disease 05/26/24 documented as of this encounter
== END 2024-09-18 16:27 | disposition home or self-care (01) ==
LOC: HO.HPS 16:06
PROVIDERS: PCP Registered Nurse; Visit Provider Internal Medicine
DX: J44.9 Chronic obstructive pulmonary disease, unspecified (principal); R09.02 Hypoxemia; F41.9 Anxiety disorder, unspecified; R91.8 Other nonspecific abnormal finding of lung field
CPT/HCPCS: 99214

== ENCOUNTER → 2024-09-18 16:05 | Outpatient (BNVA) | payer MEDICARE, MEDICAID, SELFPAY | PROVIDERS: PCP Registered Nurse; Visit Provider Internal Medicine | DX: J44.9 Chronic obstructive pulmonary disease, unspecified (principal); R91.8 Other nonspecific abnormal finding of lung field; R09.02 Hypoxemia; F41.9 Anxiety disorder, unspecified; Z99.81 Dependence on supplemental oxygen | CPT/HCPCS: 99212 ==

== ENCOUNTER → 2024-11-13 14:53 | Outpatient (REF) | payer MEDICARE, MEDICAID, SELFPAY ==
--- NOTE | 2024-11-13 14:56 | CA_ITS ---
Transthoracic Echocardiogram Patient (Last, First, Middle): Jony Murillo, Gender: Male Date of : 1960 Age: 64 Procedure Date: 11/13/2024 Procedure Type: Transthoracic Echocardiogram Location: OP Height: 172.72 cm Weight: 86.18 kg BSA: 2.00 m2 Heart Rate: 74 bpm BP: 102 / 64 mmHg Hotel Supplies Salesperson: ROSIE Referring MD: Calixto Joseph MD Supervisor Finishing: Calixto Joseph MD Symptoms: I77.89 - Other specified disorders of arteries and arterioles Study Quality: Fair ECG Rhythm: Sinus Conclusions: - 1. Normal LV ejection fraction of 65-70% with impaired relaxation filling pattern 2. Calcific aortic and mitral valve changes noted without any abnormality of cardiac valvular Dopplers 3. Mildly dilated ascending aorta at 4.1 cm Findings Procedure Information The quality of the study was technically difficult. The study quality is limited by lung artifact. Left Ventricle Normal left ventricular size, thickness, and systolic function. The visually estimated ejection fraction is between 65-70%. Spectral Doppler is indicative of an impaired relaxation filling pattern. E/E prime ratio is between 8 and 15 consistent with indeterminate filling pressures. Right Ventricle Normal right ventricular cavity size and systolic function. Atria The left atrium is normal in size. There is no evidence of interatrial shunt. The right atrium is normal in size. Aortic Valve The aortic valve was not well visualized. There is mild calcification of the aortic valve. There is no aortic valve stenosis. There is no aortic valve regurgitation. Mitral Valve There is mild anterior and moderate posterior mitral leaflet thickening. There is moderate mitral annular calcification. There is trace mitral valve regurgitation. There is no mitral valve stenosis. Pulmonic Valve The pulmonic valve was not well visualized. Tricuspid Valve Likely normal tricuspid valve structure and function. Tricuspid regurgitation envelope is inadequate for calculation of right ventricular systolic pressure. Normal right atrial pressure. Great Vessels The pulmonary artery was not well visualized. There is mild dilatation of the ascending aorta measuring 4.10 cm. Small plaque is seen in the sino tubular ridge. Venous The inferior vena cava is normal in size and collapses greater than 50% with inspiration. Pericardium/Pleural The pericardium was not well visualized. Prior Study Comparison No significant change compared to prior study dated: 10/05/2018. Measurements 2D Linear Measurements IVSd: 0.90 0.6-0.9/0.6-1.0 cm LVIDd: 5.45 3.9-5.3/4.2-5.9 cm LVIDd Index: 2.73 2.4-3.2/2.2-3.1 cm/m2 LVIDs: 3.88 2.0-3.6 cm LVPWd: 0.76 0.7-1.1 cm LA Diam: 3.70 2.7-3.8/3.0-4.0 cm LAIDs Index: 1.85 1.5-2.3 cm/m2 LV Mass: 205.61 67-162/88-224 g LV Mass Index: 102.80 43-95/49-115 g/m2 LVOT Diam: 2.40 3.0+(-)1.3 cm 2D Systolic Function EF 4C: 69.40 >55% EF 2C: 65.90 >55% EF BiP: 67.40 >55% Mitral Valve MV Pk E: 1.21 MV PK A: 0.57 MV Decel Time: 220.00 E/A: 2.10 E'Lateral: 6.96 E'Medial: 5.55 E/E' Med: 21.80 E/E' Lat: 17.40 PHT: 65.00 MVA PHT: 3.38 Decel Ward: 5.49 Aortic Valve AoV Pk Cristi: 1.39 AoV Pk Grad: 8.00 ADAM: 3.49 LVOT LVOT Pk Cristi: 1.15 LVOT Mn Cristi: 0.68 LVOT VTI: 0.22 LVOT Pk Grad: 5.00 LVOT Mn Grad: 2.00 LVOT Diam: 2.40 LVOT Area: 4.52 Diastolic Function MV Pk E: 1.21 MV Pk A: 0.57 E/A: 2.10 E'Medial: 5.55 E/E' Med: 21.80 E' Laterial: 6.96 E/E' Lat: 17.40 Right Ventricle TAPSE (mm): 17.50 TVS' Cristi: 13.30 Tricuspid Valve RA Press: 3.00 Great Vessels Aorta Sinus of Valsalva: 3.80 2.0-3.5 cm Ao Asc: 4.10 2.1-3.4 cm Ao Arch: 3.60 Pulmonary Veins Pulm Vein S/D 0.90 Pulmonary Valve PV Pk Cristi: 0.83 Peak PV Grad: 3.00 Updated in Other Vendor System with Status of Final Calixto Joseph MD electronically signed on 11/14/2024 12:34:15 PM with status of Final
--- OUTSIDE RECORDS SUMMARY | 2024-11-13 17:10 | XMS_ITS | Encounter Summary ---
Author Organization [employer] Address [address] [place] [address] Care Team Providers Care Trouble Shooter Name Role Phone Ruchi Alexandre Primary Care Provider [phone] Encounter Details Date Type Department Care Team ([facility] st Contact Info) Description 06/27/2023 Telephone [facility] 230 [place] [address] Ruchi Alexandre FNP [address] [place], [place] [phone] Social History Tobacco Use Types Packs/Day Years [...] Care Team (Late st Contact Info) Description 01/03/2025 3:30 PM EDT Office Visit [facility] 505 [place] [address] Ruchi Alexandre FNP [address] [place] [address] documented as of this encounter Visit Diagnoses Not on filedocumented in this encounter Additional Health Concerns Assessment Noted Time PHQ-9 Depression Total Score: 5 11/04/19 23 1:33 PM EDT documented as of this encounter Care Teams Trouble Shooter Relationship Specialty Start Date End Date Ruchi Alexandre FNP [address] [place] [address] PCP - General Family Medicine 07/19/22 Dr. Chirag Cordova Pulmonary Disease 05/26/24 documented as of this encounter
== END ==
LOC: HO.CARD 14:53
PROVIDERS: PCP Registered Nurse; Visit Provider Internal Medicine Cardiovascular Disease
DX: I77.89 Other specified disorders of arteries and arterioles (principal)
CPT/HCPCS: 93306

== ENCOUNTER → 2024-11-13 14:56 | Outpatient (BNV) | payer MEDICARE, MEDICAID, SELFPAY | PROVIDERS: PCP Registered Nurse; Visit Provider Internal Medicine Cardiovascular Disease | DX: I34.81 Nonrheumatic mitral (valve) annulus calcification (principal); I35.8 Other nonrheumatic aortic valve disorders; I51.89 Other ill-defined heart diseases | CPT/HCPCS: 93306 ==

== ENCOUNTER 2024-11-26 15:23 | Outpatient (REF) | payer MEDICARE, MEDICAID, SELFPAY ==
--- NOTE | ~2024-11-26 | US_ITS ---
EXAMINATION: US ABDOMEN LIMITED HISTORY: K74.60 - Unspecified cirrhosis of liver TECHNIQUE: Real-time grayscale ultrasound imaging of the liver was performed and images were reviewed. Imaging of the 4 quadrants of the abdomen was also performed to assess for ascites. COMPARISON: Comparison is made with the prior examination dated 05/31/2024. FINDINGS: Liver: The right lobe of the liver measures 17.5 cm in size. The left lobe of the liver measures 7.6 cm in size. The liver demonstrates coarsened echotexture and demonstrates a mildly nodular contour suggestive of cirrhosis. No focal mass or intrahepatic biliary ductal dilatation is identified. There is normal hepatopedal flow in the portal vein. No ascites is seen in the 4 quadrants of the abdomen. US/US abdomen limited IMPRESSION: Findings suggestive of cirrhosis of the liver. No ascites is identified. Electronically signed by: Sadiq Troncoso MD 11/27/2024 07:01 AM EDT
--- OUTSIDE RECORDS SUMMARY | 2024-11-26 16:09 | XMS_ITS | Clinical Summary ---
Author Organization 175 [facility] Address 175 [place] [address] Phone Care Team Providers Care Electron Microprobe Operator Name Role Phone Ruchi Alexandre RN Primary Care Provider Allergies No known active allergies Medications clotrimazole (LOTRIMIN) 1 % cream Apply to skin and toenails daily for 12 weeks 10/20/2023 Active Encounters Date Type Department Care Team Description 11/06/2024 3:15 PM EDT Office Visit Orthopedic Surgery [place] [address] [phone] Jhonatan Fountain DPM Closed nondisplaced fracture of fifth metatarsal bone of right foot with routine healing, subsequent encounter (Primary Dx); Follow-up exam; Dermatophytosis of nail; Pain in toe of right foot; Bilateral femoral artery stenosis (CMS/HCC V24); Pain in toe of left foot 09/25/2024 3:00 PM EDT Office Visit [facility] [address] [phone] Jhonatan Fountain DPM Closed nondisplaced fracture of fifth metatarsal bone of right foot with routine healing, subsequent encounter (Primary Dx); Follow-up exam from Last 3 Months Immunizations Name Administration [...] - - Weight 87.1 kg (192 lb) 09/25/2024 3:15 PM EDT Height 177.8 cm (5' 10 ) 09/25/2024 3:15 PM EDT Body Mass Index 27.55 09/25/2024 3:15 PM EDT Plan of Treatment Upcoming Encounters Date Type Department Care Team (Late st Contact Info) Description 12/05/2024 3:30 PM EDT Office Visit Orthopedic Surgery - [place] [address] [phone] Jhonatan Fountain, DPM [address] [address] Health Maintenance Due Date Last Done Comments [...] Health Screening 05/01/2022 Falls Risk Assessment 2023 COVID-19 Vaccine ( season) 2024 05/20/2024, 05/09/2023, 03/28/2022, Additional history exists Depression Screening 2025 02/16/2024 Hypertension/CHF/CAD Annual BMP Blood Test 05/23/2025 05/23/2024, 07/24/2023 Hepatitis C Screening Completed 02/03/2023, 023 Hepatitis B Vaccines Completed 08/09/2023, 03/22/2023, 03/14/2007, Additional history exists Influenza Vaccine Completed 05/20/2024, , 02/28/2022, Additional history exists Hepatitis A Vaccines Completed 09/30/2024, 03/22/20 23 HIB Vaccines Aged Out No longer eligi [...] Procedure Name Priority Date/Time Associated Diagnosis Comments XR FOOT 3+ VIEWS RIGHT Routine 11/06/2024 3:11 PM EDT Follow-up exam XR FOOT 3+ VIEWS RIGHT Routine 09/25/2024 3:15 PM EDT Follow-up exam ANNUAL BMP BLOOD TEST Routine 07/24/2023 HEPATITIS C SCREENING Routine 02/03/2023 from Last 3 Months or Most Recently Relevant to Health Maintenance Results * XR Foot 3+ Views Right (11/06/2024 3:11 PM EDT) Only the most recent of2 resultswithin the time period is included. Anatomical Region Laterality Modality Lower Extremities, Foot Right Computed Radiography Narrative 11/06/2024 5:44 PM EDT Right foot 3 views Fracture fifth metatarsal base right foot none intra-articular without signs of healing Jhonatan Fountain DPM IMG XR PROCEDURES Final R esult * Annual BMP Blood Test (07/24/2023) Annual BMP Blood Test Abstracted Historical Provider MD HEALTH MAINTENANCE Final Result * Hepatitis C Screening (02/03/2023) Hepatitis C Screening Abstracted us Historical Provider HEALTH MAINTENANCE Final Result from Last 3 Months or Most Recently Relevant to Health Maintenance Insurance [place] - [place]ARE Care Teams Electron Microprobe Operator Relationship Specialty Start Date End Date Ruchi Alexandre RN [address] [place] [address] PCP - General 10/06/23
== END 2024-11-26 15:24 | disposition home or self-care (01) ==
LOC: HO.US 15:23
PROVIDERS: PCP Registered Nurse; Visit Provider Internal Medicine Gastroenterology
DX: K74.60 Unspecified cirrhosis of liver (principal)
CPT/HCPCS: 76705

== ENCOUNTER → 2024-11-26 15:25 | Outpatient (BNV) | payer MEDICARE, MEDICAID, SELFPAY | PROVIDERS: PCP Registered Nurse; Visit Provider Radiology Diagnostic Radiology | DX: K74.60 Unspecified cirrhosis of liver (principal) | CPT/HCPCS: 76705 ==

== ENCOUNTER → 2024-12-04 13:30 | Outpatient (BNV) | payer MEDICARE, MEDICAID, SELFPAY | PROVIDERS: PCP Registered Nurse; Visit Provider Radiology Diagnostic Radiology | DX: Z79.52 Long term (current) use of systemic steroids (principal) | CPT/HCPCS: 77080 ==

== ENCOUNTER 2024-12-04 13:37 | Outpatient (REF) | payer MEDICARE, MEDICAID, SELFPAY ==
--- NOTE | ~2024-12-04 | MM_ITS ---
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 COMPARISON: There are no prior studies for comparison. FINDINGS: The bone mineral density of the lumbar spine is 1.347 g/cm2, corresponding to a T-score of 1.2, and a Z-score of 1.4. This is indicative of normal bone mineral density. The bone mineral density of the left total hip is 0.954 g/cm2, corresponding to a T-score of -1.0, and a Z-score of -0.6. This is indicative of normal bone mineral density. The bone mineral density of the left femoral neck is 1.106 g/cm2, corresponding to a T-score of 0.3, and a Z-score of 1.2. This is indicative of normal bone mineral density. FRACTURE RISK: The FRAX index suggests a risk of major osteoporotic fracture of 11.0%, and of hip fracture 0.7%. MM/XR DEXA axial skeleton IMPRESSION: Based on bone mineral density, and according to World Health Organization (WHO) criteria, the diagnosis is consistent with normal bone mineral density. Statistically, 68% of repeat scans fall within 1 SD (+/- 0.010 g/cm2 for AP spine L1-L4) and 1 SD (+/- 0.012 g/cm2 for femur total) FRAX is a trademark of the [employer] Met[employer] Disease, a World Health Organization (WHO) Collaborating Center. Electronically signed by: Sadiq Troncoso MD 12/04/2024 02:14 PM EDT
--- OUTSIDE RECORDS SUMMARY | 2024-12-04 14:27 | XMS_ITS | Encounter Summary ---
Author Organization [employer] Address [address] [place] [address] Care Team Providers Care Paint Formulator Name Role Phone Ruchi Alexandre Primary Care Provider [phone] Encounter Details Date Type Department Care Team ([facility] st Contact Info) Description 06/27/2023 Telephone [facility] [address] [place] [address] Ruchi Alexandre FNP [address] [place], [place] [phone] Social History Tobacco Use Types Packs/Day Years [...] Description 01/03/2025 3:30 PM EDT Office Visit [facility] 505 [place] [address] Ruchi Alexandre FNP [address] [place] [address] documented as of this encounter Visit Diagnoses Not on filedocumented in this encounter Additional Health Concerns Assessment Noted Time PHQ-9 Depression Total Score: 5 11/04/19 23 1:33 PM EDT documented as of this encounter Care Teams Paint Formulator Relationship Specialty Start Date End Date Ruchi Alexandre FNP [address] [place] [address] PCP - General Family Medicine 07/19/22 Dr. Chirag Cordova Pulmonary Disease 05/26/24 documented as of this encounter
--- OUTSIDE RECORDS SUMMARY | 2024-12-04 14:27 | XMS_ITS | Clinical Summary ---
Author Organization 175 [facility] Address 175 [place] [address] Phone Care Team Providers Care Patternmaker All Around Name Role Phone Ruchi Alexandre RN Primary Care Provider Allergies No known active allergies Medications clotrimazole (LOTRIMIN) 1 % cream Apply to skin and toenails daily for 12 weeks 10/20/2023 Active Encounters Date Type Department Care Team Description 11/06/2024 3:15 PM EDT Office Visit Orthopedic Surgery [place] [address] [phone] Jhonatan Fountain DPM Closed nondisplaced fracture of fifth metatarsal bone of right foot with routine healing, subsequent encounter (Primary Dx); Follow-up exam; Dermatophytosis of nail; Pain in toe of right foot; Bilateral femoral artery stenosis (CMS/HCC V24); Pain in toe of left foot 09/25/2024 3:00 PM EDT Office Visit [facility] [address] [phone] Jhonatan Fountain DPM Closed nondisplaced fracture of [...] Care Team (Late st Contact Info) Description 01/15/2025 2:30 PM EDT Office Visit Orthopedic Surgery - [place] [address] [phone] Jhonatan Fountain, DPM [address] [address] Health Maintenance Due Date Last Done Comments [...] 2024 05/20/2024, 05/09/2023, 03/28/2022, Additional history exists Influenza Vaccine (#1) 2025 , 05/09/2023, 02/28/2022, Additional history exists Depression Screening 2025 02/16/2024 Hypertension/CHF/CAD Annual BMP Blood Test 05/23/2025 05/23/2024, 07/24/2023 Hepatitis C Screening Completed 02/03/2023, 023 Hepatitis B Vaccines Completed 08/09/2023, 03/22/2023, 03/14/2007, Additional history exists Hepatitis A Vaccines Completed [...] Insurance [place] - [place]ARE Care Teams Patternmaker All Around Relationship Specialty Start Date End Date Ruchi Alexandre RN [address] [place] [address] PCP - General 10/06/23
== END 2024-12-04 13:38 | disposition home or self-care (01) ==
LOC: HO.MAMMO 13:37
PROVIDERS: PCP Registered Nurse; Visit Provider Registered Nurse
DX: Z13.820 Encounter for screening for osteoporosis (principal); T07.XXXA Unspecified multiple injuries, initial encounter; Z79.52 Long term (current) use of systemic steroids
CPT/HCPCS: 77080

== ENCOUNTER 2025-01-14 21:16 | Emergency (ER) | payer MEDICARE, MEDICAID, SELFPAY ==
--- NOTE | ~2025-01-14 | CT_ITS ---
CLINICAL HISTORY: pain compression fx? 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 The vertebral body with the hypoplastic 13th ribs will be referred to as T13. There is an ill-defined lytic lesion in T12 vertebral body with a pathologic T12 compression fracture causing mild to moderate height loss in the central portion of the vertebral body. There is no retropulsion. There is mild ill-defined surrounding soft tissue with slight epidural extension. There is a similar lytic lesion within the left side of L1 vertebral body extending into the left L1 pedicle. There is minimal pathologic compression fracture in the left side of the superior endplate of L1. There is an additional small ill-defined lytic lesion within the left articular process of L2. There are bilateral L5 pars defects with minimal grade 1 anterolisthesis of L5 on S1. There is mild central canal stenosis at L3-4 and L4-5. There is lower lumbar facet osteoarthritis. There is moderate to severe left L5-S1 neuroforaminal stenosis. There are multilevel mild neuroforaminal stenoses. There is colonic diverticulosis. IMPRESSION: 1. 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 2. Lytic lesions within T12, L1, and L2 suggestive of metastases or multiple myeloma with pathologic fractures of T12 and L1 as described above. This document has been electronically signed by: John Hadley MD on 01/15/2025 03:54:10
[2025-01-14 21:33] VITALS: BP 143/76; PULSE 96; RESP 18; TEMP 36.7; O2SAT 97; BMI 25.8
--- NOTE | 2025-01-14 21:40 | ECG_ITS ---
Test Reason : ABD PAIN Blood Pressure : */* mmHG Vent. Rate : 95 BPM Atrial Rate : 95 BPM P-R Int : 158 ms QRS Dur : 86 ms QT Int : 366 ms P-R-T Axes : 50 -27 43 degrees QTcB Int : 459 ms Normal sinus rhythm Cannot rule out Anterior infarct , age undetermined Abnormal ECG When compared with ECG of 23-May-2024 14:41, No significant change was found Referred By: Generic ED Physician Electronically Signed By: ESTER JJ MD
[2025-01-14 22:20] LABS: Hematocrit 33.5 % (42.0-52.0); Hemoglobin 11.0 g/dl (14.0-18.0); Imm Gran Abs Auto 0.22 X10*3/uL (0.00-0.03); Imm Gran Pct Auto 3.9 % (0.0-0.4); Lymphocytes Absolute Auto 0.7 X10*3/uL (1.2-4.9); MANUAL DIFF FLAG SCAN; Mean Corpuscular HGB Conc 32.8 g/dl (31.0-36.0); Mean Corpuscular Hemoglobin 33.2 pg (27.0-33.0); Mean Corpuscular Volume 101.2 fL (80.0-98.0); NRBC Abs Auto 0.000 X10*3/uL (0.0-0.012); NRBC Pct Auto 0.0 /100WBC (0.0-0.2); Platelet Count 63 X10*3/uL (160-400); Red Blood Count 3.31 X10*6/uL (4.60-5.80); SCAN SMEAR FLAG 1; White Blood Count 5.7 X10*3/uL (4.8-10.8)
[2025-01-14 22:21] LABS: Alanine Aminotransferase 13 U/L (0-40); Albumin Level 4.1 g/dL (3.5-5.0); Alkaline Phosphatase 131 U/L (39-117); Anion Gap 16 (12-20); Aspartate Amino Transferase 14 U/L (5-37); Blood Urea Nitrogen 7 mg/dL (9-16); Calcium 8.3 mg/dL (8.4-10.2); Carbon Dioxide 24 mmol/L (22-29); Chloride 103 mmol/L (96-108); Creatinine Clr Calc Pharmacy 80.6; Estimated Glomerular Filt Rate > 60; Lipase 17 U/L (8-78); Magnesium 2.2 mg/dL (1.6-2.6); Potassium 3.9 mmol/L (3.3-5.1); Sodium 139 mmol/L (135-145); Total Protein 7.5 g/dL (6.5-8.0)
[2025-01-14 22:31] LABS: Troponin-I High Sensitivity < 2.7 ng/L (<3.5-35.0)
[2025-01-14 22:44] LABS: Resp Syncy Virus RNA Qual PCR NEGATIVE (Negative); SARS COV2 PCR INHOUSE NEGATIVE (Negative)
[2025-01-15 00:04] VITALS: BP 128/76; PULSE 72; RESP 16; TEMP 36.8; O2SAT 100
--- NOTE | 2025-01-15 00:08 | PC.NURSE ---
Patient is alert and oriented x 4. Stating he has hx of liver disease, along with emphysemia x copd. Patient on NC 3.5L simliarly to home. Patient reports pain going on for a week, seeing primary but pain medications are not working. Stating it feels like his organs are getting crushed. Abd is distended, reports pain on right side upon palpation. Reports anorexia and nausea for a week. Pt given call naranjo, verified pain level, notified provider will see and order pain medications. Able to make needs known.
[2025-01-15 02:25] VITALS: BP 121/73; PULSE 69; RESP 18; TEMP 36.8; O2SAT 99
--- NOTE | 2025-01-15 02:59 | ED.GENADULT ---
HPI - General Adult General Chief complaint: Abdominal Pain Stated complaint: Liver disease, organ pain, 4 broken bones foot Time Seen by Provider: 01/15/25 02:19 Source: patient Limitations: no limitations History of Present Illness ED Provider: Montserrat Muhammad PA-C HPI narrative: 64-year-old male with a history of COPD 3.5 L nasal cannula, GERD, HTN, HLD, anxiety, bipolar disorder, chronic thrombocytopenia, alcohol use disorder sober for the past 15 years, cirrhosis who presents with right lumbar pain x3 weeks. Pain very focal over right lumbar paraspinous distribution, is nonradiating, worse with movement and palpation of the back. Denies paresthesia, weakness of lower extremity, urinary retention or bowel incontinence. Denies mechanism of injury that could have precipitated his symptoms. Related Data Home Medications ?Medication ?Instructions ?Recorded ?Confirmed naloxone 4 mg/actuation nasal 4 mg intranasal Q2M PRN Opioid 03/23/20 09/18/24 spray (Narcan) Overdose atorvastatin 20 mg tablet 20 mg PO BEDTIME 01/27/22 09/18/24 lamotrigine 200 mg tablet 200 mg PO BID 01/27/22 09/18/24 metoprolol tartrate 25 mg tablet 25 mg PO BID 01/27/22 09/18/24 paliperidone 3 mg tablet,extended 3 mg PO QNOON 01/27/22 09/18/24 release 24 hr (Invega) paliperidone 6 mg tablet,extended 6 mg PO QAM 01/27/22 09/18/24 release 24 hr (Invega) sildenafil 100 mg tablet (Viagra) 100 mg PO DAILY PRN Sexual Activity 01/27/22 09/18/24 gabapentin 600 mg tablet 1,200 mg PO BEDTIME 12/07/22 09/18/24 dextroamphetamine-amphetamine 10 1 tab PO DAILY 03/09/23 09/18/24 mg tablet ipratropium 0.5 mg-albuterol 3 mg 3 ml inhalation Q6-8H PRN wheezing 08/10/23 09/18/24 (2.5 mg base)/3 mL nebulization soln gabapentin 600 mg tablet 600 mg PO TID 09/12/24 09/18/24 Previous Rx's ?Medication ?Instructions ?Recorded clonazepam 1 mg tablet 1 mg PO BID ANXIETY 30 days #60 04/04/24 tabs oxycodone 5 mg tablet 5 mg PO Q6H PRN pain #20 tabs 05/23/24 fluticasone 250 mcg-salmeterol 50 1 inh inhalation BID 30 days #60 ea 07/18/24 mcg/dose blistr powdr for inhalation tiotropium 2.5 mcg-olodaterol 2.5 2 puff inhalation Q24H Adsvanced 09/05/24 mcg/actuation mist for inhalation COPD 30 days #4 grams (Stiolto Respimat) albuterol sulfate 90 mcg/actuation 2 puff inhalation Q4-6H PRN 09/27/24 aerosol inhaler (Ventolin HFA) shortness of breath or wheezing 30 days #8.5 grams ferrous sulfate 324 mg (65 mg 324 mg PO DAILY 90 days #90 tabs 09/27/24 iron) tablet,delayed release omeprazole 40 mg capsule,delayed 40 mg PO TID 90 days #270 caps 09/27/24 release budesonide 0.5 mg/2 mL suspension 0.5 mg (2 mL) inhalation BID 10/02/24 for nebulization COPD/ASTHMA 30 days #120 mL fluticasone 500 mcg-salmeterol 50 1 inh inhalation BID severe COPD 10/10/24 mcg/dose blistr powdr for 30 days #60 ea inhalation (Advair Diskus) budesonide-formoterol HFA 160 2 puff inhalation BID severe copd 10/14/24 mcg-4.5 mcg/actuation aerosol 30 days #10.2 grams inhaler (Symbicort) fluticasone fur. 200 mcg-umeclid 1 inh inhalation DAILY severe copd 10/15/24 62.5 mcg-vilant 25 mcg 30 days #60 ea inhalat.powder (Trelegy Ellipta) prednisone 5 mg tablet 5 mg PO BID #60 tabs 12/19/24 methocarbamol 750 mg tablet 1,500 mg (2 x 750 mg) PO Q8H PRN 01/15/25 pain, moderate #24 tabs oxycodone 5 mg tablet 5 mg PO Q8H PRN pain #15 tabs 01/15/25 Allergies Allergy/AdvReac Type Severity Reaction Status Date / Time No Known Allergies (No Known Allergy Verified 01/14/25 21:38 Allergies*) Review of Systems Review of Systems: Yes all other systems are reviewed and are negative Constitutional: Constitutional: Denies fatigue and Denies fever(s) Cardiovascular: Cardiovascular: Denies chest pain and Denies dyspnea Respiratory: Respiratory: Denies dyspnea Gastrointestinal: Gastrointestinal: Denies abdominal pain, Denies nausea and Denies vomiting Musculoskeletal: Musculoskeletal: Reports back pain, Denies muscle weakness, Denies numbness, Denies radiating pain into limb and Denies tingling Neurologic: Denies numbness and Denies tingling Endocrine: Endocrine: Denies fatigue FOR[facility]LY [facility], [facility] Past Medical History Attestation statement: The following information was validated with the patient. Medical History Rib fractures Emphysema lung Hx of hepatic disease Bronchitis Closed head injury Soft tissue injury of right chest wall Hypoxia On beta mariano at home Anxiety Bronchitis Ascending aorta dilatation O2 dependent Personal history of nicotine dependence Pulmonary nodules Hypoxemia COPD (chronic obstructive pulmonary disease) Hiatal hernia without gangrene or obstruction GERD without esophagitis Mass of upper lobe of left lung History of drug abuse History of ETOH abuse Bipolar disorder Hyperlipidemia Hypertension Surgical History History of Achilles tendon repair History of endoscopy History of biopsy History of colonoscopy History of repair of hiatal hernia (~06/01/18) Family History Family History Father History of heart attack Mother History of COPD Sister History of cancer Brother Hx of cancer of lung Social History Social History Household Members: Significant Other Housing: House Do you presently have visiting nurse or other home services: No Alcohol intake: never Comment: refusing bed alarm Patient Tobacco Use Status: Former Tobacco user Tobacco use type: Cigarette Smoked in Last 30 Days: No Second Hand Smoke Exposure: No Use of substances other than those prescribed or required for medical reasons: No Advance Directives: No Advance Directives Information Provided: Yes Advance Directives Date on File: 12/08/22 Do you have a plan to hurt others: No Plan service: No Physical Exam ED Vital Signs: Vital Signs - 24 hr 01/14/25 21:33 01/15/25 00:04 01/15/25 02:25 Temperature 98.0 F 98.2 F 98.3 F Pulse Rate 96 72 69 Respiratory Rate 18 16 18 Blood Pressure 143/76 H 128/76 121/73 Pulse Oximetry 97 100 99 Oxygen Delivery Method Room Air Nasal Cannula Nasal Cannula Oxygen Flow Rate 3.5 3 BMI result Body Mass Index 25.8 Const Other: Alert Orientation/consciousness: patient oriented x3 Resp Effort & Inspection: normal respiratory effort Cardio Other: Normal peripheral perfusion Back/Spine/Pelvis Other: Reproducible pain with the palpation over right lumbar paraspinous muscle distribution Skin Other: Warm dry no rash Neuro General: patient oriented x3, gait normal, no focal motor deficits and CN's II-XI intact bilaterally Psych Other: Cooperative Medications Administered Discontinued Medications Generic Name Dose Route Start Last Admin Trade Name Freq PRN Reason Stop Dose Admin Acetaminophen 975 mg 01/14/25 21:40 01/14/25 21:45 Acetaminophen 325 Mg Tablet PO 01/14/25 21:41 975 mg ONCE ONE Administration Methocarbamol 1,500 mg 01/15/25 02:36 01/15/25 02:43 Methocarbamol 750 Mg Tablet PO 01/15/25 02:37 1,500 mg ONCE ONE Administration Medical Decision Making Medical Decision Making MDM Narrative: 64-year-old male with a history of COPD 3.5 L nasal cannula, GERD, HTN, HLD, anxiety, bipolar disorder, chronic thrombocytopenia, alcohol use disorder sober for the past 15 years, cirrhosis who presents with right lumbar pain x3 weeks. Pain very focal over right lumbar paraspinous distribution, is nonradiating, worse with movement and palpation of the back. Denies paresthesia, weakness of lower extremity, urinary retention or bowel incontinence. Denies mechanism of injury that could have precipitated his symptoms. Problem: Cirrhosis, psychiatric illness, History: Per patient I have considered the following differential diagnoses: Compression fracture, lumbar strain, lumbar radiculopathy, cauda equina Plan: The patient's pain is out of proportion with the exam, with light palpation of the back, perhaps he has significant arthritic changes, ordering imaging of the lumbar spine. To note he is not having radicular symptoms, he has no red flag signs symptoms concerning for cord compression. We will give a dose of methocarbamol as his exam thus far is most consistent with musculoskeletal strain/pain. I have independently reviewed the following tests: Labs: No acute abnormalities, at patient's baseline CT lumbar spine:IMPRESSION: 1. 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 2. Lytic lesions within T12, L1, and L2 suggestive of metastases or multiple myeloma with pathologic fractures of T12 and L1 as described above. Lab Data 01/14/25 21:59 01/14/25 21:59 Labs: Lab Results 01/14/25 Range/Units 21:59 WBC 5.7 (4.8-10.8) X10*3/uL RBC 3.31 L (4.60-5.80) X10*6/uL Hgb 11.0 L (14.0-18.0) g/dl Hct 33.5 L (42.0-52.0) % MCV 101.2 H (80.0-98.0) fL MCH 33.2 H (27.0-33.0) pg MCHC 32.8 (31.0-36.0) g/dl RDW 17.5 H (11.0-16.0) % Plt Count 63 L (160-400) X10*3/uL MPV Not Reportable Immature Gran % (Auto) 3.9 H (0.0-0.4) % Neut % (Auto) 26.2 L (45-73) % Lymph % (Auto) 11.8 L (20-40) % [place] % (Auto) 57.5 H (2-11) % Eos % (Auto) 0.4 (0-4) % Baso % (Auto) 0.2 (0-2) % Lymph # (Auto) 0.7 L (1.2-4.9) X10*3/uL [place] # (Auto) 3.3 H (0.1-1.2) X10*3/uL Eos # (Auto) 0.0 (0.0-0.4) X10*3/uL Baso # (Auto) 0.0 (0.0-0.2) X10*3/uL Abs Immat Gran (auto) 0.22 H (0.00-0.03) X10*3/uL Absolute Neuts (auto) 1.5 L (2.0-8.3) x10*3/uL Absolute Nucleated RBC 0.000 (0.0-0.012) X10*3/uL Nucleated RBC % (auto) 0.0 (0.0-0.2) /100WBC Smear Tech's Comments VERIFIED Sodium 139 (135-145) mmol/L Potassium 3.9 (3.3-5.1) mmol/L Chloride 103 (96-108) mmol/L Carbon Dioxide 24 (22-29) mmol/L Anion Gap 16 (12-20) BUN 7 L (9-16) mg/dL Creatinine 0.93 (0.5-1.4) mg/dL Estim Creat Clear Calc 80.6 Estimated GFR > 60 Random Glucose 100 (60-115) mg/dL Calcium 8.3 L (8.4-10.2) mg/dL Magnesium 2.2 (1.6-2.6) mg/dL Total Bilirubin 1.5 H (0.0-1.0) mg/dL AST 14 (5-37) U/L ALT 13 (0-40) U/L Alkaline Phosphatase 131 H (39-117) U/L Troponin I High Sens < 2.7 (<3.5-35.0) ng/L Total Protein 7.5 (6.5-8.0) g/dL Albumin 4.1 (3.5-5.0) g/dL Lipase 17 (8-78) U/L Influenza Type A (PCR) NEGATIVE (Negative) Influenza Type B (PCR) NEGATIVE (Negative) RSV RNA Qual (PCR) NEGATIVE (Negative) SARS-CoV-2 RNA (RT-PCR) NEGATIVE (Negative) Discharge Plan Discharge Clinical Impression: Lumbar back pain Patient Disposition: Home, Self-Care Instructions: Acute Low Back Pain (ED) Additional Instructions: You were found to have what is called lytic lesions, of the T12, L1 and L2 vertebrae. These lesions are concerning for metastatic cancer versus multiple myeloma. You need to contact your primary care provider for an appointment, you need to see an oncologist. You need an extensive outpatient workup to determine the nature of these lesions. I am also providing you with a contact for our oncology service, you can also call to make an appointment. Use the methocarbamol as needed for pain, this is a muscle relaxant. To note this medication will cause drowsiness, do not drive or operate machinery while taking this medication. Use the oxycodone for pain as well, this medication can be constipating, take a stool softener while using the medication. Prescriptions: New methocarbamol 750 mg tablet 1,500 mg PO Q8H PRN (Reason: pain, moderate) Qty: 24 0RF oxycodone 5 mg tablet 5 mg PO Q8H PRN (Reason: pain) Qty: 15 0RF Rx Instructions: Partial Fill upon patient request. No Action fluticasone propion-salmeterol 250-50 mcg/dose blister with device 1 inh inhalation BID 30 Days Qty: 60 5RF Stiolto Respimat 2.5-2.5 mcg/actuation mist 2 puff inhalation Q24H 30 Days Qty: 4 3RF albuterol sulfate [Ventolin HFA] 90 mcg/actuation HFA aerosol inhaler 2 puff inhalation Q4-6H PRN (Reason: shortness of breath or wheezing) 30 Days Qty: 8.5 2RF ferrous sulfate 324 mg (65 mg iron) tablet,delayed release (DR/EC) 324 mg PO DAILY 90 Days Qty: 90 1RF omeprazole 40 mg capsule,delayed release(DR/EC) 40 mg PO TID 90 Days Qty: 270 3RF budesonide 0.5 mg/2 mL suspension for nebulization 0.5 mg inhalation BID 30 Days Qty: 120 3RF Rx Instructions: 1 VIAL IN THE NEBULIZER BID fluticasone propion-salmeterol [Advair Diskus] 500-50 mcg/dose blister with device 1 inh inhalation BID 30 Days Qty: 60 4RF budesonide-formoterol [Symbicort] 160-4.5 mcg/actuation HFA aerosol inhaler 2 puff inhalation BID 30 Days Qty: 10.2 3RF Trelegy Ellipta 200-62.5-25 mcg blister with device 1 inh inhalation DAILY 30 Days Qty: 60 5RF prednisone 5 mg tablet 5 mg PO BID Qty: 60 3RF gabapentin 600 mg tablet 1,200 mg PO BEDTIME ipratropium-albuterol 0.5 mg-3 mg(2.5 mg base)/3 mL solution for nebulization 3 ml inhalation Q6-8H PRN (Reason: wheezing) oxycodone 5 mg tablet 5 mg PO Q6H PRN (Reason: pain) Qty: 20 0RF Rx Instructions: Partial Fill upon patient request. Narcan 4 mg/actuation spray,non-aerosol 4 mg intranasal Q2M PRN (Reason: Opioid Overdose) Rx Instructions: spray 1 dose into ONE nostril; alternate nostrils w each dose until help arrives metoprolol tartrate 25 mg tablet 25 mg PO BID paliperidone [Invega] 6 mg tablet extended release 24hr 6 mg PO QAM paliperidone [Invega] 3 mg tablet extended release 24hr 3 mg PO QNOON sildenafil [Viagra] 100 mg tablet 100 mg PO DAILY PRN (Reason: Sexual Activity) lamotrigine 200 mg tablet 200 mg PO BID atorvastatin 20 mg tablet 20 mg PO BEDTIME gabapentin 600 mg tablet 600 mg PO TID dextroamphetamine-amphetamine 10 mg tablet 1 tab PO DAILY clonazepam 1 mg tablet 1 mg PO BID 30 Days Qty: 60 2RF Referrals: Cristine Arriaga MD [Physician, Hematology & Oncology] Referral Note: Lytic lesions within T12, L1, and L2 suggestive of metastases or multiple myeloma with pathologic fractures of T12 and L1 , on CT lumbar spine Print Language: Slovak
[2025-01-15 04:31] VITALS: BP 107/65; PULSE 68; RESP 18; TEMP 36.7; O2SAT 98
[2025-01-15] MEDS: oxyCODONE HCl Immed Release 5 MG TABLET 10 MG PO (04:35)
[2025-01-15 04:49] VITALS: BP 107/65; PULSE 68; RESP 18; TEMP 36.7; O2SAT 98
== END 2025-01-15 04:50 | disposition home or self-care (01) ==
PROVIDERS: Emergency Provider Emergency Medicine; PCP Registered Nurse
DX: M54.50 Low back pain, unspecified (principal); G95.9 Disease of spinal cord, unspecified; J44.9 Chronic obstructive pulmonary disease, unspecified; I10 Essential (primary) hypertension; D69.6 Thrombocytopenia, unspecified; K74.69 Other cirrhosis of liver; Z79.899 Other long term (current) drug therapy
CPT/HCPCS: 72131; 80053; 83690; 83735; 84484; 85025; 87637; 93005; 99284; 99285

== ENCOUNTER → 2025-01-14 21:40 | Outpatient (BNV) | payer MEDICARE, MEDICAID, SELFPAY | PROVIDERS: Emergency Provider Emergency Medicine; PCP Registered Nurse; Visit Provider Internal Medicine Cardiovascular Disease | DX: R94.31 Abnormal electrocardiogram [ECG] [EKG] (principal); R10.9 Unspecified abdominal pain | CPT/HCPCS: 93010 ==

== ENCOUNTER → 2025-01-15 02:36 | Outpatient (BNV) | payer MEDICARE, MEDICAID, SELFPAY | PROVIDERS: Emergency Provider Emergency Medicine; PCP Registered Nurse; Visit Provider Radiology Diagnostic Radiology | DX: S22.080A Wedge compression fracture of T11-T12 vertebra, initial encounter for closed fracture (principal) | CPT/HCPCS: 72131 ==

== ENCOUNTER 2025-01-19 18:20 | Emergency (ER) | payer MEDICARE, MEDICAID, SELFPAY ==
--- NOTE | ~2025-01-19 | CT_ITS ---
CLINICAL HISTORY: fall, rib fractures, emphysema history CT chest without contrast Comparison: CR - XR RIBS LT MIN 3V W CXR1V - 01/19/25 19:[address]/SR - CT CHEST WO IV CON - 06/11/24 17:13 EST Findings: The heart size is normal. The visualized thyroid is unremarkable. 1.4 cm subcarinal lymph node, unchanged. Severe emphysema with biapical bullae and fibrotic changes, bilateral bronchiectasis, and mucous plugging in the right lower lobe. No pneumothorax. Scattered bilateral pulmonary nodules, measuring up to 0.9 cm in the posterior right upper lobe and 0.6 cm in the posterior left upper lobe. These are new since the prior CT on 06/11/2024. Hiatal hernia. Healed right 10th and 11th posterior rib fractures. Acute nondisplaced left 3rd, 4th, and 7th rib fractures. IMPRESSION: Acute nondisplaced left 3rd, 4th, and 7th rib fractures without pneumothorax. Severe chronic lung findings, as above. New scattered subcentimeter bilateral pulmonary nodules. They may be infectious, inflammatory, or neoplastic in this patient with severe emphysema. Follow-up per imaging guidelines. This document has been electronically signed by: Jose Mojica MD on 01/19/2025 23:14:45
--- NOTE | ~2025-01-19 | XR_ITS ---
CLINICAL HISTORY: trauma 3 view, chest and left ribs Comparison: Chest CT from 06/11/2024 Findings: Acute nondisplaced left 4th and 5th rib fractures. Additional mild bilateral rib deformities appear old/chronic. Consolidation is most pronounced in the right upper lobe. Differential considerations include scarring given relatively stable appearance relative to 06/11/2024 CT. Additional mild bibasilar atelectasis/pneumonitis noted. No pneumothorax. Trace right effusion versus right pleural thickening noted. Severe emphysematous changes are redemonstrated. Spine is mostly obscured. IMPRESSION: 1. Acute nondisplaced left 4th and 5th rib fractures. 2. Mild bibasilar atelectasis/pneumonitis. Recommend attention on follow-up to ensure resolution. This document has been electronically signed by: Jermaine Cr MD on 01/19/2025 19:55:45
[2025-01-19 18:34] VITALS: BP 108/63; PULSE 85; RESP 16; TEMP 36.9; O2SAT 98; BMI 25.8
--- NOTE | 2025-01-19 18:36 | ED_ITS ---
HPI - General Adult General Chief complaint: Fall Stated complaint: fall, left sided rib pain Time Seen by Provider: 01/19/25 20:59 Source: patient and family Mode of arrival: ambulatory Limitations: no limitations History of Present Illness ED Provider: Dr. Griselda Taylor HPI narrative: 64-year-old male with a history oxygen-dependent COPD on 3.5 L nasal cannula at all times, GERD, hypertension, hyperlipidemia, bipolar disorder, thrombocytopenia and alcoholic liver cirrhosis presenting with left anterior chest pain that occurred after a fall 2 days ago. Patient states he tripped over his oxygen tubing, landing face 1st on the ground. Did not hit his head or lose consciousness. [place] a ?crack?. Was able to ambulate after the fall with the assistance. Describes left-sided chest pain that has been progressively worsening since. Unable to take a deep breath due to pain. Wants to cough but reports that it is too painful to do so. Denies feeling short of breath though. No fever. Denies other injury. He does not take anticoagulation. Related Data Home Medications ?Medication ?Instructions ?Recorded ?Confirmed naloxone 4 mg/actuation nasal 4 mg intranasal Q2M PRN Opioid 03/23/20 09/18/24 spray (Narcan) Overdose atorvastatin 20 mg tablet 20 mg PO BEDTIME 01/27/22 lamotrigine 200 mg tablet 200 mg PO BID 01/27/2209/18 metoprolol tartrate 25 mg tablet 25 mg PO BID 01/27/22 09/18/24 paliperidone 3 mg tablet,extended 3 mg PO QNOON 09/18/24 release 24 hr (Invega) paliperidone 6 mg tablet,extended 6 mg PO QAM 01/27/22 09/18/24 release 24 hr (Invega) sildenafil 100 mg tablet (Viagra) 100 mg PO DAILY PRN Sexual Activity 01/27/22 09/18/24 gabapentin 600 mg tablet 1,200 mg PO BEDTIME 12/07/22 09/18/24 dextroamphetamine-amphetamine 10 1 tab PO DAILY 09/18/24 mg tablet ipratropium 0.5 mg-albuterol 3 mg 3 ml inhalation Q6-8 H PRN wheezing 08/10/23 09/18/24 (2.5 mg base)/3 mL nebulization soln gabapentin 600 mg tablet 600 mg PO TID 09/12/2409/18 Previous Rx's ?Medication ?Instructions ?Recorded clonazepam 1 mg tablet 1 mg PO BID ANXIETY 30 days #60 08/31/23 tabs oxycodone 5 mg tablet 5 mg PO Q6H PRN pain #20 tab s 05/23/24 fluticasone 250 mcg-salmeterol 50 1 inh inhalation BID 30 days #60 ea 07/18/24 mcg/dose blistr powdr for inhalation tiotropium 2.5 mcg-olodaterol 2.5 2 puff inhalation Q2 4H Adsvanced 09/05/24 mcg/actuation mist for inhalation COPD 30 days #4 gra ms (Stiolto Respimat) albuterol sulfate 90 mcg/actuation 2 puff inhalation Q 4-6H PRN 09/27/24 aerosol inhaler (Ventolin HFA) shortness of breath or wheezing 30 days #8.5 grams ferrous sulfate 324 mg (65 mg 324 mg PO DAILY 90 days #90 tabs 09/27/24 iron) tablet,delayed release omeprazole 40 mg capsule,delayed 40 mg PO TID 90 days #270 caps 09/27/24 release budesonide 0.5 mg/2 mL suspension 0.5 mg (2 mL) inhala tion BID 10/02/24 for nebulization COPD/ASTHMA 30 days #120 mL fluticasone 500 mcg-salmeterol 50 1 inh inhalation BID severe COPD 10/10/24 mcg/dose blistr powdr for 30 days #60 ea inhalation (Advair Diskus) budesonide-formoterol HFA 160 2 puff inhalation BID se michael copd 10/14/24 mcg-4.5 mcg/actuation aerosol 30 days #10.2 grams inhaler (Symbicort) fluticasone fur. 200 mcg-umeclid 1 inh inhalation TONI Y severe copd 10/15/24 62.5 mcg-vilant 25 mcg 30 days #60 ea inhalat.powder (Trelegy Ellipta) prednisone 5 mg tablet 5 mg PO BID #60 tabs 5 methocarbamol 750 mg tablet 1,500 mg (2 x 750 mg) PO Q 8H PRN 01/15/25 pain, moderate #24 tabs oxycodone 5 mg tablet 5 mg PO Q8H PRN pain #15 tab s 01/15/25 lidocaine 5 % topical patch 1 patch topical DAILY #15 ea 01/20/25 oxycodone 5 mg tablet 5 mg PO Q8H PRN pain 5 days #15 01/20/25 tabs Allergies Allergy/AdvReac Type Severity Reaction Status Date / Time No Known Allergies (No Known Allergy Verified 01/19/25 18:37 Allergies*) Review of Systems 2 Review of Systems: As per HPI, full review of systems performed and negative but for the above mentioned pertinent positives and negatives. [facility] Past Medical History Medical History Rib fractures Emphysema lung Hx of hepatic disease Bronchitis Closed head injury Soft tissue injury of right chest wall Hypoxia On beta mariano at home Anxiety Bronchitis Ascending aorta dilatation O2 dependent Personal history of nicotine dependence Pulmonary nodules Hypoxemia COPD (chronic obstructive pulmonary disease) Hiatal hernia without gangrene or obstruction GERD without esophagitis Mass of upper lobe of left lung History of drug abuse History of ETOH abuse Bipolar disorder Hyperlipidemia Hypertension Surgical History History of Achilles tendon repair History of endoscopy History of biopsy History of colonoscopy History of repair of hiatal hernia (~06/01/18) Family History Family History Father History of heart attack Mother History of COPD Sister History of cancer Brother Hx of cancer of lung Social History Social History Household Members: Significant Other Housing: House Do you presently have visiting nurse or other home services: No Alcohol intake: former Comment: refusing bed alarm Patient Tobacco Use Status: Former Tobacco user Tobacco use type: Cigarette Smoked in Last 30 Days: No Second Hand Smoke Exposure: No Use of substances other than those prescribed or required for medical reasons: No Advance Directives: Yes Advance Directives on File: Yes Advance Directives Date on File: 12/08/22 Do you have a plan to hurt others: No Plan service: No Physical Exam ED Exam Exam: GENERAL: Chronically ill-appearing, conversant, no acute distress. SKIN: Normal skin color for ethnicity, warm, dry, no rashes noted. HEENT: Normocephalic, atraumatic, no stridor, posterior oropharynx nonerythematous, EOMI. NECK: Soft, supple, full ROM, midline structures nontender, no step-offs, no deformities, no lymphadenopathy. CHEST: Heart regular rate and rhythm, no murmurs, symmetric chest rise and fall, left anterior chest wall tenderness to palpation at ribs 4 through 5 close to the sternum. PULMONARY: Clear to auscultation bilaterally, diminished at the bases, shallow breaths, no wheezes/rhales/ rhonchi. ABDOMINAL: Soft, nondistended, nontender, positive bowel sounds in all quadrants. : Deferred. MUSCULOSKELETAL: Normal tone, full range of motion, no deformities, no peripheral edema. NEURO: Alert and oriented to person, CN II through XII intact, no focal neurologic deficits. PSYCHIATRIC: Flat affect, fluid speech, appropriate demeanor. Vital Signs: Vital Signs - 24 hr 01/19/25 18:34 01/19/25 21:49 Temperature 98.4 F Pulse Rate 85 73 Respiratory Rate 16 17 Blood Pressure 108/63 135/80 Pulse Oximetry 98 98 Oxygen Delivery Method Room Air Nasal Cannula Oxygen Flow Rate 3.5 BMI result Body Mass Index 25.8 Course Course Course Narrative: RME, this is a rapid medical exam performed by Curtis Hodges please refer to primary provider for complete H&P- 64-year-old male presents for evaluation of left rib pain. He reports falling over 2 days ago and injuring his left side pain. Denies head strike or loss of consciousness. Denies any headache. He has no neuro deficits in triage. Given that the fall was 2 days [address] will defer CT scan of the brain and she spent at this time. X-ray of the left ribs ordered Medications Administered Discontinued Medications Generic Name Dose Route Start Last Admin Trade Name Freq PRN Reason Stop Dose Admin Fentanyl 50 mcg 01/19/25 21:24 01/19/25 21:41 Fentanyl Citrate/Pf 100 Mcg/2 Ml Vial IVPUSH 01/19/25 21:25 50 mcg ONCE ONE Administration Protocol Lactated Ringer's 1,000 mls @ 999 mls/hr 01/19/25 21:24 01/19/25 22:52 Lr IV 01/19/25 22:24 Infused .Q1H1M ONE Infusion Lidocaine 1 patch 01/19/25 21:24 01/19/25 21:41 Lidocaine 4 % Patch Adh..Patch TRANSDERMA 01/19/25 21:25 1 patch ONCE ONE Administration Protocol Ondansetron HCl 4 mg 01/19/25 21:24 01/19/25 21:41 Ondansetron Hcl 4 Mg/2 Ml Vial IVPUSH 01/19/25 21:25 4 mg ONCE ONE Administration Medical Decision Making Medical Decision Making [facility] Narrative: 64-year-old male with a history of alcoholic liver cirrhosis, oxygen-dependent COPD, recent diagnosis of potential multiple myeloma versus metastatic lesions on his L-spine presenting after a fall at home. Differential diagnosis includes rib fracture, rib contusion, chest wall contusion, hemothorax, pneumothorax, pneumonitis, pneumonia, polypharmacy, lytic lesions to the bone, among others. Chest x-ray shows a couple of rib fractures. We will add on a CT to look at the parenchyma better given his recent diagnosis of multiple myeloma just a couple of days ago. The want to look at the bones more closely and define the multiple lung masses that are seen on x-ray to be sure he has not developed pneumonia or hemothorax. CT does not show evidence of pneumothorax or hemothorax. Patient is at his baseline with his work of breathing. He has 3 rib fractures. We had an extensive discussion regarding admission versus discharge, follow-up versus inpatient care. Using shared decision making, plan for discharge home to follow-up with primary care and pulmonology. He has an incentive spirometer at home already. Patient understands and agrees with plan for discharge. Discharged home in stable condition. Differential Diagnosis Differential Diagnoses: The differential diagnosis associated with the presentation includes (As above) Admission/Observation Consideration of admission/observation: Escalation of care including admission/observation considered Lab Data [facility] Lab Attestation statement: I reviewed the patient's lab results. 01/19/25 18:48 01/19/25 22:57 Labs: Lab Results 01/19/25 01/19/25 Range/Units 18:48 22:57 WBC 9.9 (4.8-10.8) X10*3/uL RBC 3.54 L (4.60-5.80) X10*6/uL Hgb 11.6 L (14.0-18.0) g/dl Hct 36.0 L (42.0-52.0) % MCV 101.7 H (80.0-98.0) fL MCH 32.8 (27.0-33.0) pg MCHC 32.2 (31.0-36.0) g/dl RDW 17.6 H (11.0-16.0) % Plt Count TNP MPV TNP Immature Gran % (Auto) Cancelled Neut % (Auto) Cancelled Lymph % (Auto) Cancelled [place] % (Auto) Cancelled Eos % (Auto) Cancelled Baso % (Auto) Cancelled Lymph # (Auto) Cancelled [place] # (Auto) Cancelled Eos # (Auto) Cancelled Baso # (Auto) Cancelled Abs Immat Gran (auto) Cancelled Absolute Neuts (auto) Cancelled Absolute Nucleated RBC 0.000 (0.0-0.012) X10*3/uL Nucleated RBC % (auto) 0.0 (0.0-0.2) /100WBC Neutrophils % (Manual) 40 L (45-73) % Band Neutrophils % 13 H (3-5) % Lymphocytes % (Manual) 7 L (20-40) % Monocytes % (Manual) 40 H (2-11) % Abs Neuts (Manual) 5.2 (2.0-8.3) X10*3/uL Lymphocytes # (Manual) 0.7 L (1.2-4.9) X10*3/uL Monocytes # (Manual) 4.0 H (0.1-1.2) X10*3/uL Toxic Vacuolation PRESENT Platelet Estimate DECREASED (NORMAL) Plt Morphology Comment NORMAL RBC Morphology NOTED Tear Drop Cells 1+ (0-2) /OIF Ovalocytes 1+ (5-14) /OIF Sodium 135 (135-145) mmol/L Potassium 3.8 (3.3-5.1) mmol/L Chloride 103 (96-108) mmol/L Carbon Dioxide 22 (22-29) mmol/L Anion Gap 14 (12-20) BUN 5 L (9-16) mg/dL Creatinine 0.73 (0.5-1.4) mg/dL Estim Creat Clear Calc 102.7 Estimated GFR > 60 Random Glucose 108 (60-115) mg/dL Calcium 8.1 L (8.4-10.2) mg/dL Magnesium 1.9 (1.6-2.6) mg/dL Total Bilirubin 1.6 H (0.0-1.0) mg/dL AST 14 (5-37) U/L ALT 11 (0-40) U/L Alkaline Phosphatase 112 (39-117) U/L Troponin I High Sens 2.7 (<3.5-35.0) ng/L Total Protein 6.7 (6.5-8.0) g/dL Albumin 3.5 (3.5-5.0) g/dL Radiology Impression Discussion of test interpretation with radiology: I have reviewed the radiologist's reading. Radiologist Impression: 3 view, chest and left ribs Comparison: Chest CT from 06/11/2024 Findings: Acute nondisplaced left 4th and 5th rib fractures. Additional mild bilateral rib deformities appear old/chronic. Consolidation is most pronounced in the right upper lobe. Differential considerations include scarring given relatively stable appearance relative to 06/11/2024 CT. Additional mild bibasilar atelectasis/pneumonitis noted. No pneumothorax. Trace right effusion versus right pleural thickening noted. Severe emphysematous changes are redemonstrated. Spine is mostly obscured. IMPRESSION: 1. Acute nondisplaced left 4th and 5th rib fractures. 2. Mild bibasilar atelectasis/pneumonitis. Recommend attention on follow-up to ensure resolution. This document has been electronically signed by: Jermaine Cr MD on 01/19/2025 19:55:45 CT chest without contrast Comparison: CR - XR RIBS LT MIN 3V W CXR1V - 01/19/25 19:[address]/SR - CT CHEST WO IV CON - 06/11/24 17:13 EST Findings: The heart size is normal. The visualized thyroid is unremarkable. 1.4 cm subcarinal lymph node, unchanged. Severe emphysema with biapical bullae and fibrotic changes, bilateral bronchiectasis, and mucous plugging in the right lower lobe. No pneumothorax. Scattered bilateral pulmonary nodules, measuring up to 0.9 cm in the posterior right upper lobe and 0.6 cm in the posterior left upper lobe. These are new since the prior CT on 06/11/2024. Hiatal hernia. Healed right 10th and 11th posterior rib fractures. Acute nondisplaced left 3rd, 4th, and 7th rib fractures. IMPRESSION: Acute nondisplaced left 3rd, 4th, and 7th rib fractures without pneumothorax. Severe chronic lung findings, as above. New scattered subcentimeter bilateral pulmonary nodules. They may be infectious, inflammatory, or neoplastic in this patient with severe emphysema. Follow-up per imaging guidelines. This document has been electronically signed by: Jose Mojica MD on 01/19/2025 23:14:45 Independent Historian Clinical information obtained from an independent historian. History obtained from or confirmed by: Spouse External Record Review External record reviewed: Inpatient record Prescription Management I considered prescription management with: Pain Medication Chronic Conditions Patient?s care impacted by: Hypertension and Other (Oxygen-dependent COPD, alcoholic liver cirrhosis) Discharge Plan Discharge Clinical Impression: Rib fractures, Fall from ground level, O2 dependent, Pulmonary nodules Patient Disposition: Home, Self-Care Instructions: Rib Fracture (ED) Additional Instructions: Use your incentive spirometer as much as possible while resting at home. You need to take deep breaths as to avoid developing pneumonia. Use oxycodone for pain only if you are going to be lying down and resting. This medication can make you more unsteady on your feet. Return to the ER if you develop a fever, have changes in your sputum production or are unable to control the pain with the pain medication. Call your primary care doctor for follow-up as soon as possible. Prescriptions: New oxycodone 5 mg tablet 5 mg PO Q8H PRN (Reason: pain) 5 Days Qty: 15 0RF Rx Instructions: Partial Fill upon patient request. lidocaine 5 % adhesive patch,medicated 1 patch topical DAILY Qty: 15 0RF Rx Instructions: leave on most painful area for up to 12 hrs No Action fluticasone propion-salmeterol 250-50 mcg/dose blister with device 1 inh inhalation BID 30 Days Qty: 60 5RF Stiolto Respimat 2.5-2.5 mcg/actuation mist 2 puff inhalation Q24H 30 Days Qty: 4 3RF albuterol sulfate [Ventolin HFA] 90 mcg/actuation HFA aerosol inhaler 2 puff inhalation Q4-6H PRN (Reason: shortness of breath or wheezing) 30 Days Qty: 8.5 2RF ferrous sulfate 324 mg (65 mg iron) tablet,delayed release (DR/EC) 324 mg PO DAILY 90 Days Qty: 90 1RF omeprazole 40 mg capsule,delayed release(DR/EC) 40 mg PO TID 90 Days Qty: 270 3RF budesonide 0.5 mg/2 mL suspension for nebulization 0.5 mg inhalation BID 30 Days Qty: 120 3RF Rx Instructions: 1 VIAL IN THE NEBULIZER BID fluticasone propion-salmeterol [Advair Diskus] 500-50 mcg/dose blister with device 1 inh inhalation BID 30 Days Qty: 60 4RF budesonide-formoterol [Symbicort] 160-4.5 mcg/actuation HFA aerosol inhaler 2 puff inhalation BID 30 Days Qty: 10.2 3RF Trelegy Ellipta 200-62.5-25 mcg blister with device 1 inh inhalation DAILY 30 Days Qty: 60 5RF prednisone 5 mg tablet 5 mg PO BID Qty: 60 3RF gabapentin 600 mg tablet 1,200 mg PO BEDTIME ipratropium-albuterol 0.5 mg-3 mg(2.5 mg base)/3 mL solution for nebulization 3 ml inhalation Q6-8H PRN (Reason: wheezing) oxycodone 5 mg tablet 5 mg PO Q6H PRN (Reason: pain) Qty: 20 0RF Rx Instructions: Partial Fill upon patient request. methocarbamol 750 mg tablet 1,500 mg PO Q8H PRN (Reason: pain, moderate) Qty: 24 0RF oxycodone 5 mg tablet 5 mg PO Q8H PRN (Reason: pain) Qty: 15 0RF Rx Instructions: Partial Fill upon patient request. Narcan 4 mg/actuation spray,non-aerosol 4 mg intranasal Q2M PRN (Reason: Opioid Overdose) Rx Instructions: spray 1 dose into ONE nostril; alternate nostrils w each dose until help arrives metoprolol tartrate 25 mg tablet 25 mg PO BID paliperidone [Invega] 6 mg tablet extended release 24hr 6 mg PO QAM paliperidone [Invega] 3 mg tablet extended release 24hr 3 mg PO QNOON sildenafil [Viagra] 100 mg tablet 100 mg PO DAILY PRN (Reason: Sexual Activity) lamotrigine 200 mg tablet 200 mg PO BID atorvastatin 20 mg tablet 20 mg PO BEDTIME gabapentin 600 mg tablet 600 mg PO TID dextroamphetamine-amphetamine 10 mg tablet 1 tab PO DAILY clonazepam 1 mg tablet 1 mg PO BID 30 Days Qty: 60 2RF Print Language: French
[2025-01-19 19:02] LABS: Hematocrit 36.0 % (42.0-52.0); Hemoglobin 11.6 g/dl (14.0-18.0); Mean Corpuscular HGB Conc 32.2 g/dl (31.0-36.0); Mean Corpuscular Hemoglobin 32.8 pg (27.0-33.0); Mean Corpuscular Volume 101.7 fL (80.0-98.0); NRBC Abs Auto 0.000 X10*3/uL (0.0-0.012); NRBC Pct Auto 0.0 /100WBC (0.0-0.2); PLT CLUMP 1; Red Blood Count 3.54 X10*6/uL (4.60-5.80)
[2025-01-19 19:23] LABS: PLT ABN DIST 1; WBC ABN SCTR FOR CBC 1; White Blood Count 9.9 X10*3/uL (4.8-10.8)
[2025-01-19 19:32] LABS: Neutrophils Percent Manual 40 % (45-73)
[2025-01-19 19:35] LABS: Band Neutrophils Percent 13 % (3-5); Lymphocytes Absolute Manual 0.7 X10*3/uL (1.2-4.9); Lymphocytes Percent Manual 7 % (20-40); Monocytes Absolute Manual 4.0 X10*3/uL (0.1-1.2); Monocytes Percent Manual 40 % (2-11); Neutrophils Absolute Manual 5.2 X10*3/uL (2.0-8.3); Ovalocytes 1+ (5-14) /OIF; RBC Morphology NOTED; Tear Drop Cells 1+ (0-2) /OIF; Toxic Vacuolation PRESENT
--- NOTE | 2025-01-19 19:39 | PC.NURSE ---
Critical lab value received at this time - band neutrophils 13%. ASHWIN Hodges notified/aware.
[2025-01-19] MEDS: Lactated Ringers 1,000 ML 999 ML IV (21:41)
[2025-01-19] MEDS: Lidocaine 4 % Patch ADH..PATCH 1 PATCH TRANSDERMA (21:41)
[2025-01-19 21:49] VITALS: BP 135/80; PULSE 73; RESP 17; O2SAT 98
--- NOTE | 2025-01-19 21:50 | PC.NURSE ---
IVF/medication administered at this time. effectiveness pending. pt waiting to go to CT at this time. pt remains on 3.5L via NC (baseline) w/o difficulty. no sob/wob noted. respirations even/unlabored. plan of care ongoing. call naranjo placed within reach.
[2025-01-19 23:22] LABS: Alanine Aminotransferase 11 U/L (0-40); Albumin Level 3.5 g/dL (3.5-5.0); Alkaline Phosphatase 112 U/L (39-117); Anion Gap 14 (12-20); Aspartate Amino Transferase 14 U/L (5-37); Blood Urea Nitrogen 5 mg/dL (9-16); Calcium 8.1 mg/dL (8.4-10.2); Carbon Dioxide 22 mmol/L (22-29); Chloride 103 mmol/L (96-108); Creatinine Clr Calc Pharmacy 102.7; Estimated Glomerular Filt Rate > 60; Magnesium 1.9 mg/dL (1.6-2.6); Potassium 3.8 mmol/L (3.3-5.1); Sodium 135 mmol/L (135-145); Total Protein 6.7 g/dL (6.5-8.0)
[2025-01-19 23:29] LABS: Troponin-I High Sensitivity 2.7 ng/L (<3.5-35.0)
[2025-01-20 01:43] VITALS: BP 118/73; PULSE 77; RESP 26; TEMP 36.7; O2SAT 98
== END 2025-01-20 01:48 | disposition home or self-care (01) ==
PROVIDERS: Emergency Provider Emergency Medicine
DX: S22.42XA Multiple fractures of ribs, left side, initial encounter for closed fracture (principal); W18.30XA Fall on same level, unspecified, initial encounter; Y93.9 Activity, unspecified; Y92.9 Unspecified place or not applicable; Y99.9 Unspecified external cause status; R07.9 Chest pain, unspecified; J44.9 Chronic obstructive pulmonary disease, unspecified; Z99.81 Dependence on supplemental oxygen; K21.9 Gastro-esophageal reflux disease without esophagitis; I10 Essential (primary) hypertension; E78.5 Hyperlipidemia, unspecified; R91.8 Other nonspecific abnormal finding of lung field
CPT/HCPCS: 36415; 71101; 71250; 80053; 83735; 84484; 85007; 85025; 85027; 96361; 96374; 96375; 99284; 99285; J2405; J3010; J7120

== ENCOUNTER → 2025-01-19 18:36 | Outpatient (BNV) | payer MEDICARE, MEDICAID, SELFPAY | PROVIDERS: Visit Provider Radiology Neuroradiology | DX: S22.42XA Multiple fractures of ribs, left side, initial encounter for closed fracture (principal); W01.0XXA Fall on same level from slipping, tripping and stumbling without subsequent striking against object, initial encounter | CPT/HCPCS: 71101 ==

== ENCOUNTER 2025-01-20 15:57 | Outpatient (AMB) | payer MEDICARE, MEDICAID, SELFPAY ==
--- OUTSIDE RECORDS SUMMARY | 2025-01-15 14:30 | XMS_ITS | Encounter Summary ---
Author Organization [facility] Address [address] [place] [address] Care Team Providers Care Station Installation Supervisor Name Role Phone Ruchi Alexandre parquet floor layer Provider Encounter Details Date Type Department Care Team (Late st Contact Info) Description 01/15/2025 2:30 PM EDT Office Visit Orthopedic Surgery - [address] [phone] Jhonatan Fountain DPM [address] [place] [phone] Closed nondisplaced fracture of proximal phalanx of toe of left foot (Primary Dx); Follow-up exam; Closed nondisplaced fracture of fifth metatarsal bone of right foot with routine healing, subsequent encounter Social History Tobacco Use Types Packs/Day Years Used Date Smoking Tobacco: Never Assessed Sex and Gender Information Value Date Recorded Sex Assigned at Not on file Legal Sex Male 3:18 AM EST Gender Identity Not on file Sexual Orientation Not on file documented as of this encounter Progress Notes * Jhonatan Fountain DPM - 01/15/2025 2:30 PM EDT Last PCP visit:Referring MD: PARMJIT Foss - 06/21/2024 S Patient presents with his present reports his right foot is been doing better he recently bumped his left foot1 weeks ago states his left foot has been black and blue he is wonder if he broke and got x-rays of both feet today ROS: GENERAL: Pt denies nausea, fever, vomiting, chills, or shortness of breath. Pt in NAD. CARDIOLOGY: pt denies chest pain, palpitations LUNGS: pt denies shortness of breath MUSCULOSKELETAL: See HPI, otherwise no joint pain or swelling, back pain, or muscle pain. SKIN: see HPI, otherwise no lesions, rash or itching NEURO: No persistent headache, weakness or numbness The remainder of the review of systems is noncontributory PAST MEDICAL HISTORY: There is no problem list on file for this patient. SOCIAL HISTORY: Social History Tobacco Use Smoking status: Not on file Smokeless tobacco: Not on file Substance Use Topics Alcohol use: Not on file ACTIVE MEDICATIONS: No outpatient medications have been marked as taking for the 01/15/25 encounter (Appointment) with Jhonatan Fountain DPM. ALLERGIES: No Known Allergies PHYSICAL EXAM: There were no vitals taken for this visit. PODIATRIC EXAMINATION: GENERAL: Patient appears well nourished, with NAD. VASCULAR: Dorsalis pedis pulses are 1/4 bilaterally and Posterior tibial pulses are 1 out of 4 right 04 left capillary filling time within normal limits the digits. No pallor on elevation or rubor ondependency. No varicosities. Denies rest pain or claudication pain. NEUROLOGICAL: Sharp/dull sensation intact, protective sensation intact 10/10 with 5.07 semmes nickolas bilaterally, vibratory sensation with tuning fork intact to the tibial tuberosity. ORTHOPEDIC: Good muscle strength 5/5 of all flexors and extensors. Dorsi flexion of ankle ,10 degrees, plantar flexion WNL. No muscle atrophy. DERMATOLOGICAL:. Toenails: Left Toenail(s) 1-5: subungual debris, discoloration, hypertrophic, elongation, mycotic appearance, onychomycosis, pain and thickening. Right Toenail(s) 1-5: subungual debris, discoloration, hypertrophic, elongation, mycotic appearance, onychomycosis, pain and thickening. Annular scaling bilateral feet moccasin distribution Skin thinning texture shiny appearance diffuse hyperpigmentation bilaterally pedal hair decreased BIOMECHANICS: Ankle ROM WNL, STJ ROM wnl, MTJ ROM wnl, 1st MPJ ROM wnl. Pain and swelling of left forefoot fifth digit Improved pain and swelling of the right foot with pain palpation fifth metatarsal base right IMAGING: Fracture fifth metatarsal base right IMPRESSION: 1. Closed nondisplaced fracture of proximal phalanx of toe of left foot 2. Follow-up exam 3. Closed nondisplaced fracture of fifth metatarsal bone of right foot with routine healing, subsequent encounter PLAN: Pt was seen and examined, history reviewed. Concerns for fracture of right foot was discussed and reviewed Continue with minimal weightbearing to right lower extremity patient currently utilizes wheelchair full-time New fracture left foot discussed and reviewed Follow-up in 1 month new x-rays of both feet Jhonatan Fountain DPM documented in this encounter Plan of Treatment Upcoming Encounters Date Type Department Care Team (Late st Contact Info) Description 02/12/2025 3:45 PM EDT Office Visit Orthopedic Surgery - [address] [phone] Jhonatan Fountain DPM [address] [place] [phone] documented as of this encounter Visit Diagnoses Diagnosis Closed nondisplaced fracture of proximal phalanx of toe of left foot- Primary Follow-up exam Unspecified follow-up examination Closed nondisplaced fracture of fifth metatarsal bone of right foot with routine healing, subsequent encounter documented in this encounter Care Teams Station Installation Supervisor Relationship Specialty Start Date End Date Ruchi Alexandre RN [address] [id number] PCP - General 10/06/23 documented as of this encounter
--- NOTE | 2025-01-20 16:04 | A.OFFVIS_ITS ---
Vital Signs 01/20/25 16:05 Height 5 ft 10 in Weight 178 lb BMI 25.5 BP 118/57 L Blood Pressure Location Lt brachial Position Sitting Respiration 22 H Pulse 78 Pulse Source Pulse Oximeter Pulse Oximetry (%) 95 Oxygen Delivery Method Nasal Cannula Oxygen Flow Rate 3 Intake Visit Reasons: COPD Bucket Operator Required: No Allergies No Known Allergies (No Known Allergies*) Allergy (Verified 01/20/25 16:15) Medication List - Last Reconciled 01/20/25 by Chirag Cordova MD albuterol sulfate 90 mcg/actuation (Ventolin HFA) 2 puffs inhalation Q4-6H PRN 30 days atorvastatin 20 mg PO BEDTIME budesonide 0.5 mg (2 mL) inhalation BID 30 days clonazepam 1 mg PO BID 30 days dextroamphetamine-amphetamine 10 mg 1 tab PO DAILY ferrous sulfate 324 mg PO DAILY 90 days fluticasone propion-salmeterol 500-50 mcg/dose (Advair Diskus) 1 inh inhalation BID 30 days gmfbvwbnewj-vmiloqwjt-crmisrgj 200-62.5-25 mcg (Trelegy Ellipta) 1 inh inhalation DAILY 30 days gabapentin 1,200 mg PO BEDTIME gabapentin 600 mg PO TID ipratropium-albuterol 0.5 mg-3 mg(2.5 mg base)/3 mL 3 mL inhalation Q6-8H PRN lamotrigine 200 mg PO BID lidocaine 5% 1 patch topical DAILY methocarbamol 1,500 mg (2 x 750 mg) PO Q8H PRN metoprolol tartrate 25 mg PO BID naloxone 4 mg/actuation (Narcan) 4 mg intranasal Q2M PRN omeprazole 40 mg PO TID 90 days oxycodone 5 mg PO Q6H PRN oxycodone 5 mg PO Q8H PRN oxycodone 5 mg PO Q8H PRN 5 days paliperidone ER (Invega) 6 mg PO QAM paliperidone ER (Invega) 3 mg PO QNOON prednisone 5 mg PO BID sildenafil (Viagra) 100 mg PO DAILY PRN Do you need a note to return to daycare/school/sports/work: No HPI HPI COPD: Details: Jony is here for his routine follow-up. Lately he has missed a few appointments because he ended up going to the emergency room. He say is he was in the emergency room yesterday, after a fall from the chair. And he was found to have fractures of a few ribs on the left side. He has been started on oxycodone 5 mg q.6 hours PRN to control the pain. He sees his breathing is fairly stable at this time. Is treatment is mainly Trelegy Ellipta once a day, and ipratropium-albuterol solution in the nebulizer about 3 times a day. Then he uses Ventolin HFA 2 puffs Q 4-6 hours p.r.n.. He remains mostly in the wheelchair at home. He tripped over the oxygen cylinder and fell down. [facility] Medical History Rib fractures Emphysema lung Hx of hepatic disease Bronchitis Closed head injury Soft tissue injury of right chest wall Hypoxia On beta mariano at home Anxiety Bronchitis Ascending aorta dilatation O2 dependent Personal history of nicotine dependence Pulmonary nodules Hypoxemia COPD (chronic obstructive pulmonary disease) Hiatal hernia without gangrene or obstruction GERD without esophagitis Mass of upper lobe of left lung History of drug abuse History of ETOH abuse Bipolar disorder Hyperlipidemia Hypertension Surgical History History of Achilles tendon repair History of endoscopy History of biopsy History of colonoscopy History of repair of hiatal hernia (~06/01/18) Family History Father History of heart attack Mother History of COPD Sister History of cancer Brother Hx of cancer of lung Social History Household Members: Significant Other Housing: House Do you presently have visiting nurse or other home services: No Alcohol intake: former Comment: refusing bed alarm Patient Tobacco Use Status: Former Tobacco user Tobacco use type: Cigarette Second Hand Smoke Exposure: No Advance Directives Date on File: 12/08/22 service: No Review of Systems Const All systems reviewed & are unremarkable except as noted in HPI and below Eyes Reports no additional complaints ENT Reports nasal congestion (Mild off and on) Card Denies chest pain, Denies irregular heart rhythm and Denies leg edema Resp Reports as per HPI GI Reports no additional complaints Reports no additional complaints Musc Reports no additional complaints Skin/Breast Reports system reviewed and no additional complaints, except as documented Neuro Reports no additional complaints Psych Reports anxiety and Reports other (Bipolar disorder, stable and controlled) Endo Reports no additional complaints Physical Exam Vital Signs: Last Vital Signs Pulse 78 01/20/25 16:05 Resp 22 H 01/20/25 16:05 BP 118/57 L 01/20/25 16:05 Pulse Ox 95 01/20/25 16:05 Oxygen Delivery Method Nasal Cannula 01/20/25 16:05 Oxygen Flow Rate 3 01/20/25 16:05 BMI result Body Mass Index 25.5 Const General: comfortable (But anxious), no acute distress, alert and awake Orientation/consciousness: patient oriented x3 HEENT Head: Yes normal to inspection General nose exam: No nasal polyps present and No nasal discharge present Face and sinus: Yes sinuses nontender Mouth: oropharynx normal Throat: Yes posterior oropharynx normal Eyes General: appearance normal, both eyes and all related structures Neck Neck: Yes normal visual inspection, Yes no lymphadenopathy, Yes trachea midline and Yes no JVD Thyroid: Thyroid normal Chest Chest palpation & inspection: normal inspection of the chest, normal palpation of entire chest wall and tenderness (Moderately tender over the left lower thoracic ribcage.) Resp Other: Percussion note resonant, breath sounds are very distant and quiet. THERE ARE NO AUDIBLE WHEEZES RHONCHI OR CREPITATIONS TODAY. Cardio Palpation: normal PMI Rate: regular rate Rhythm: regular rhythm Heart sounds: no gallops and no murmurs GI Palpation (GI): Soft to palpation, nontender, No hepatosplenomegaly present and no masses Auscultation: normal bowel sounds Back/Spine/Pelvis Thoracic/Lumbar Spine: thoracic and lumbar spine normal to inspection and thoraco-lumbar ROM limited Skin General skin exam: no rashes or lesions noted Neuro General: patient oriented x3 and no focal motor deficits Cranial nerves: Yes CN's II-XII intact bilaterally Extrem General: Yes normal to inspection, Yes no clubbing, cyanosis or edema and Yes no calf tenderness Psych Appearance: grossly normal and disheveled (Slightly) Mental Status: other ( ) Speech and movement: Normal speech and movement present Assessment & Plan Assessment & Plan (1) COPD (chronic obstructive pulmonary disease): Comment: Advanced COPD , but doing as good as expected. CT SCAN of the chest showed extensive degree of pulmonary emphysema and fibrosis on both sides, along with traction bronchiectasis, and mediastinal lymphadenopathy. Code(s): J44.9 - Chronic obstructive pulmonary disease, unspecified Category: Medical Plan: Teresa Ge. 1 inhalation daily Ipratropium-albuterol solution in the nebulizer Q 6 hours while awake ( use at least 3 times a day ) Albuterol HFA 2 puffs Q 4-6 hours p.r.n.. (2) O2 dependent: Comment: PATIENT HAS CHRONIC RESPIRATORY FAILURE WITH HYPOXEMIA, AND IS O2 DEPENDENT. Uses 3 L/minute continuously. Code(s): Z99.81 - Dependence on supplemental oxygen Category: Medical Plan: Continue to use O2 3 L/minute 24 hours a day. (3) Pulmonary nodules: Comment: (waxing/waning nodules b/l - new 1.1cm KAE nodule on 07/27/20 CT) but subsequent CT scan showed resolution. Nodule , 7 x 10 mm nodule in right upper lobe, being monitored closely. Code(s): R91.8 - Other nonspecific abnormal finding of lung field Category: Medical Plan: Continue to CT scan once a year (4) Anxiety: Comment: He is a known case of bipolar disorder and severe anxiety. Code(s): F41.9 - Anxiety disorder, unspecified Category: Medical Plan: Needs ongoing reassurance. He is on clonazepam 1 mg b.i.d. (5) Rib fractures: Comment: Jony had a fall recently within the last few days, Seen in the emergency room yesterday. Chest x-ray and CT scan showed fractures of the 3rd 4th and 7th rib on left side, nondisplaced. And luckily no pneumo thorax. Code(s): S22.49XA - Multiple fractures of ribs, unspecified side, initial encounter for closed fracture Category: Medical Plan: Discussed with water and counseled that he has to take all precautions and avoid any falls. He has been ordered oxycodone tablets to take 1q 6 hours p.r.n. for pain control. After a few days he should just take Tylenol 2 tablets q.6 hours. Coding Level of Care Code Est Pt Level 4 (37530) Diagnoses COPD (chronic obstructive pulmonary disease) J44.9 O2 dependent Z99.81 Pulmonary nodules R91.8 Anxiety F41.9 Rib fractures S22.49XA
[2025-01-20 16:05] VITALS: BP 118/57; PULSE 78; RESP 22; O2SAT 95; BMI 25.5
--- OUTSIDE RECORDS SUMMARY | 2025-01-20 17:51 | XMS_ITS | Encounter Summary ---
Author Organization [employer] Address [address] [facility] 7[address] [place] [address] Care Team Providers Care Corporate Strategy Associate Name Role Phone Ruchi Alexandre ELECTRIC SWITCH REPAIRER Primary Care Provider [phone] Encounter Details Date Type Department Care Team ([facility] Contact Info) Description 01/15/2025 Orders Only [facility] External Provider, [facility] Social History Tobacco Use Types Packs/Day Years [...] as of this encounter Plan of Treatment Not on file documented as of this encounter Procedures Procedure Name Priority Date/Time Associated Diagnosis Comments CT LUMBAR SPINE WO CONTRAST Routine 01/15/2025 3:54 AM EDT documented in this encounter Results * CT Lumbar Spine w/o Contrast (01/15/2025 3:54 AM EDT) Anatomical Region Laterality Modality Spine, L-spine Computed Tomogra phy 01/15/2025 3:54 AM EDT Narrative 01/15/2025 3:56 AM EDT [place] [address] CT Scan Report Signed Patient: Jony Murillo MR#: [id number] : 1960 Acct:[id number] Age/Sex: 64 / M ADM Date: 01/15/25 Loc: HO.ED Attending Dr: Ordering Physician: Montserrat Muhammad Date of Service: 01/15/25 Procedure(s): CT lumbar spine wo IV con Accession Number(s): [id number] cc: Montserrat Muhammad; Ruchi Alexandre ELECTRIC SWITCH REPAIRER Report Number: [id number]: Total DLP = 475.00 mGy-cm CLINICAL HISTORY: pain compression fx? CT lumbar spine without contrast Comparison: CT/SR - CT CHEST WO IV CON - 06/11/24 17:[address]/REG/AR/SR - ABD PELV W PO CON ONLY [id number] - 10/04/18 23:44 EDT Findings: There are 13 rib-bearing vertebral bodies with hypoplastic 13th ribs in correlation with the chest CT. The vertebral body with the hypoplastic 13th ribs will be referred to as T13. There is an ill-defined lytic lesion in T12 vertebral body with a pathologic T12 compression fracture causing mild to moderate height loss in the central portion of the vertebral body. There is no retropulsion. There is mild ill-defined surrounding soft tissue with slight epidural extension. There is a similar lytic lesion within the left side of L1 vertebral body extending into the left L1 pedicle. There is minimal pathologic compression fracture in the left side of the superior endplate of L1. There is an additional small ill-defined lytic lesion within the left articular process of L2. There are bilateral L5 pars defects with minimal grade 1 anterolisthesis of L5 on S1. There is mild central canal stenosis at L3-4 and L4-5. There is lower lumbar facet osteoarthritis. There is moderate to severe left L5-S1 neuroforaminal stenosis. There are multilevel mild neuroforaminal stenoses. There is colonic diverticulosis. IMPRESSION: 1. 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 2. Lytic lesions within T12, L1, and L2 suggestive of metastases or multiple myeloma with pathologic fractures of T12 and L1 as described above. This document has been electronically signed by: John Hadley MD on 01/15/2025 03:54:10 Dictated By: John Hadley MD Signed By: <Electronically signed by John Hadley MD in OV> 01/15/25 0356 DD/ TD/TT: 01/15/25353 Bag Making Machine Operator: Procedure Note Donotuseinterpreter, Image - 01/15/[address] [address] [address] Scan Report Signed Patient: Betsy Murillo#: [id number] : 8Acct:[id number] Age/Sex: 64 / MADM Date: 01/15/25 Loc: HO.ED Attending Dr: Ordering Physician: Montserrat Muhammad Date of Service: 01/15/25 Procedure(s): CT lumbar spine wo IV con Accession Number(s): [id number] cc: Monsterrat Muhammad; Ruchi Alexandre [facility] Report Number: [id number]: Total DLP = 475.00 mGy-cm CLINICAL HISTORY: pain compression fx? CT lumbar spine without contrast Comparison: CT/SR - CT CHEST WO IV CON - 06/11/24 17:[address]/REG/AR/SR - ABD PELV W PO CON ONLY [id number] - 10/04/18 23:44 EDT Findings: There are 13 rib-bearing vertebral bodies with hypoplastic 13th ribs in correlation with the chest CT. The vertebral body with the hypoplastic 13th ribs will be referred to as T13. There is an ill-defined lytic lesion in T12 vertebral body with a pathologic T12 compression fracture causing mild to moderate height loss in the central portion of the vertebral body. There is no retropulsion. There is mild ill-defined surrounding soft tissue with slight epidural extension. There is a similar lytic lesion within the left side of L1 vertebral body extending into the left L1 pedicle. There is minimal pathologic compression fracture in the left side of the superior endplate of L1. There is an additional small ill-defined lytic lesion within the left articular process of L2. There are bilateral L5 pars defects with minimal grade 1 anterolisthesis of L5 on S1. There is mild central canal stenosis at L3-4 and L4-5. There is lower lumbar facet osteoarthritis. There is moderate to severe left L5-S1 neuroforaminal stenosis. There are multilevel mild neuroforaminal stenoses. There is colonic diverticulosis. IMPRESSION: 1. 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 2. Lytic lesions within T12, L1, and L2 suggestive of metastases or multiple myeloma with pathologic fractures of T12 and L1 as described above. This document has been electronically signed by: John Hadley MD on 01/15/2025 03:54:10 Dictated By: John Haldey MD Signed By: <Electronically signed by John Hadley MD in OV> 01/15/25 0356 DD/ 3 TD/TT: 01/15/25353 Bag Making Machine Operator: [facility] External Provider IMG CT PROCEDURES Final Result documented in this encounter Visit Diagnoses Not on filedocumented in this encounter Additional Health Concerns Assessment Noted Time PHQ-9 Depression Total Score: 0 02/16/20 3:53 PM EDT documented as of this encounter Care Teams Corporate Strategy Associate Relationship Specialty Start Date End Date Ruchi Alexandre FNP [address] [place] [address] PCP - General Family Medicine 07/19/22 Dr. Chirag Cordova Pulmonary Disease 05/26/24 documented as of this encounter
--- OUTSIDE RECORDS SUMMARY | 2025-01-20 17:51 | XMS_ITS | Encounter Summary ---
Author Organization [employer] Address [address] [facility] 7[address] [place] [address] Care Team Providers Care Oil Expeller Name Role Phone Jigneshdelfino Ruchi SENIOR LOAN OFFICER Primary Care Provider [phone] Encounter Details Date Type Department Care Team ([facility] st Contact Info) Description 01/20/2025 Orders Only [facility] CH[facility] MED & PEDS [address] [place], [place] [phone] Ruchi Alexandre FNP [address] [place] [address] Bone lesion (Primary Dx) Social History Tobacco Use Types Packs/Day Years [...] on file documented as of this encounter Visit Diagnoses Diagnosis Bone lesion- Primary Disorder of bone and cartilage, unspecified documented in this encounter Additional Health Concerns Assessment Noted Time PHQ-9 Depression Total Score: 0 02/16/20 24 3:53 PM EDT documented as of this encounter Care Teams Oil Expeller Relationship Specialty Start Date End Date Ruchi Alexandre FNP [address] [place] [address] PCP - General Family Medicine 07/19/22 Dr. Chirag Cordova Pulmonary Disease 05/26/24 documented as of this encounter
--- OUTSIDE RECORDS SUMMARY | 2025-01-20 17:51 | XMS_ITS | Encounter Summary ---
Author Organization [employer] Address [address] [facility] 7t [place] [address] Care Team Providers Care Dean Of Instruction Name Role Phone Jigneshdelfino Ruchi EXPERIMENTAL AIRCRAFT MECHANIC Primary Care Provider [phone] Encounter Details Date Type Department Care Team ([facility] st Contact Info) Description 12/08/2024 Results Follow-Up [facility] CHC MED & PEDS [address] [place], [place] [phone] Ruchi Alexandre FNP [address] [place] [address] BD DEXA Axial Social History Tobacco Use Types Packs/Day Years [...] documented as of this encounter Care Teams Dean Of Instruction Relationship Specialty Start Date End Date Ruchi Alexandre FNP [address] [place] [address] PCP - General Family Medicine 07/19/22 Dr. Chirag Cordova Pulmonary Disease 05/26/24 documented as of this encounter
--- OUTSIDE RECORDS SUMMARY | 2025-01-20 17:51 | XMS_ITS | Encounter Summary ---
Author Organization [employer] Address [address] [facility] 7t [place] [address] Care Team Providers Care Robotic Machine Operator Name Role Phone Ruchi Alexandre CURVE CLEANER Primary Care Provider [phone] Reason for Visit * Reason Onset Date Comments Pre-op 06/14/2023 Encounter Details Date Type Department Care Team ([facility] st Contact Info) Description 06/14/2023 Telephone [facility] CHC MED & PEDS [address] [place], [place] [phone] Ruchi Alexandre FNP [address] [place] [address] Pre-op Social History Tobacco Use Types Packs/Day [...] regards to the message below please call [phone] * Telephone Encounter - Pat Vasquez RN - 06/23/2023 9:07 AM EST TC X2 to Herlinda regarding message below. LVM to return call to nurses. * Telephone Encounter - Jaskaran Abbasi - 06/22/2023 4:32 PM EST Tc from herlinda with [facility] returning Phone call [phone] * Telephone Encounter - Pat Vasquez RN - 06/22/2023 2:32 PM EST TC X1 to [facility] eye regarding pre op needed. LVM to [...] Surgeon's name: Dr. moreno Facility name: [facility] eye Surgeon's office number: [phone] Surgeon's office fax number: [phone] Contact name (person you spoke with): Herlinda Appointment needs to be with in 30 days of second surgery. documented in this encounter Plan of Treatment Not on file documented as of this encounter Visit Diagnoses Not on filedocumented in this encounter Additional Health Concerns Assessment Noted Time PHQ-9 Depression Total Score: 5 11/04/19 23 1:33 PM EDT documented as of this encounter Care Teams Robotic Machine Operator Relationship Specialty Start Date End Date Ruchi Alexandre FNP [address] [place] [address] PCP - General Family Medicine 07/19/22 Dr. Chirag Cordova Pulmonary Disease 05/26/24 documented as of this encounter
--- OUTSIDE RECORDS SUMMARY | 2025-01-20 17:51 | XMS_ITS | Encounter Summary ---
Author Organization [employer] Address [address] [facility] 7[address] [place] [address] Care Team Providers Care Field Property Loss Specialist Name Role Phone Ruchi Alexandre Primary Care Provider [phone] Encounter Details Date Type Department Care Team ([facility] st Contact Info) Description 06/27/2023 Telephone [facility] MEDICINE [address] [place] [address] Ruchi Alexandre FNP [address] [place], [place] [phone] Social History Tobacco Use Types Packs/Day Years [...] documented as of this encounter Care Teams Field Property Loss Specialist Relationship Specialty Start Date End Date Ruchi Alexandre FNP [address] [place] [address] PCP - General Family Medicine 07/19/22 Dr. Chirag Cordova Pulmonary Disease 05/26/24 documented as of this encounter
--- OUTSIDE RECORDS SUMMARY | 2025-01-20 17:51 | XMS_ITS | Clinical Summary ---
Author Organization [employer] Address [address] [place] [address] Care Team Providers Care Guest Services Manager Name Role Phone Ruchi Alexandre [employer] Primary Care Provider [phone] Allergies Active Allergy Reactions Criticality Noted Date Comments Quinolones 07/12/2018 Other reaction(s): tendon rupture Tramadol 11/18/2010 Other reaction(s): Hives Medications omeprazole (PriLOSEC) [address] capsuleIndicat ions:Gastroeso phageal reflux disease, unspecified whether esophagitis present TAKE 1 CAPSULE BY MOUTH TWICE DAILY 180 capsule 1 08/16/19 23 Active amphetamine-de xtroamphetamin e (Adderall) 10 MG tablet Take 1 tablet by mouth in the morning. 09/06/19 23 Active clonazePAM (KlonoPIN) 1 MG tablet Take 1 mg by mouth 2 times daily. 10/04/19 23 Active lamoTRIgine (LaMICtal) 200 MG tablet Take 1 tablet by mouth 2 times daily. 10/05/19 23 Active Invega 3 MG 24 hr tablet TAKE 1 TABLET BY MOUTH EVERY AFTERNOON 10/04/19 23 Active Invega 6 MG 24 hr tablet Take 6 mg by mouth in the morning. 10/04/19 23 Active Viagra 100 MG tablet TAKE 1 TABLET 1 HOUR BEFORE SEXUAL RELATIONS ONCE DAILY NEEDED. 01/04/20 22 Active carbamide peroxide (Debrox) 6.5 % otic solution 5 drops every 12 (twelve) hours. 07/28/19 21 Active Emollient (CeraVe Moisturizing) cream to put over the nose 03/23/20 21 Active ipratropium-al buterol (Duo-Neb) 0.5-2.5 mg/3 mL nebulizer solution INHALE 1 AMPULE USING A NEBULIZER EVERY 6 TO 8 HOURS NEEDED FOR WHEEZING 12/13/19 23 Active naloxone (Narcan) 4 mg/0.1 mL nasal spray 1 full spray by intranasal route in 1 nostril as instructed. May repeat dose every 2-3 minutes as needed alternating nostrils with each dose 10/11/19 19 Active albuterol (Ventolin HFA) 108 (90 Base) MCG/ACT inhaler INHALE 2 PUFFS BY MOUTH EVERY 4 TO 6 HOURS IF NEEDED 18 g 3 05/08/20 23 Active ferrous sulfate 324 (65 Fe) MG EC tablet Take 324 mg by mouth in the morning. 07/31/19 24 Active predniSONE (Deltasone) 5 MG tablet 08/07/19 24 Active Spiriva Respimat 2.5 MCG/ACT inhaler 2 puffs in the morning. 02/09/20 23 Active Fluticasone-Sa lmeterol 500-50 MCG/ACT aerosol powderIndicati ons:Chronic obstructive pulmonary disease, unspecified COPD type (CMS/HCC) INHALE 1 PUFF BY MOUTH TWICE DAILY, 12 HOURS APART, RINSE MOUTH AFTER USING. 60 each 5 03/22/20 24 Active ipratropium-al buterol (Combivent Respimat) 20-100 MCG/ACT inhaler INHALE 1 PUFF 4 TIMES A DAY, MAY TAKE ADDITIONAL PUFFS NEEDED. (MAX OF 6 PUFFS PER DAY) 4 g 3 04/10/20 24 Active metoprolol tartrate (Lopressor) 25 MG tabletIndicati ons:Aortic root dilation (CMS/HCC) TAKE 1 TABLET BY MOUTH TWICE DAILY 180 tablet 3 04/23/20 24 Active Symbicort 160-4.5 MCG/ACT inhaler INHALE 2 PUFFS BY MOUTH TWICE DAILY, RINSE MOUTH AFTER USING. 04/10/20 24 Active atorvastatin (Lipitor) 20 MG tablet TAKE 1 TABLET BY MOUTH AT BEDTIME 90 tablet 3 06/10/19 25 Active gabapentin (Neurontin) 600 MG tablet TAKE 1 TABLET BY MOUTH TWICE DAILY IN THE MORNING AND IN THE EVENING AND TAKE 2 TABLETS BY MOUTH AT BEDTIME 120 tablet 4 10/15/19 25 Active Trelegy Ellipta 200-62.5-25 MCG/ACT aerosol powder 01/03/20 25 Active traMADol (Ultram) 50 MG tabletIndicati ons:Bone lesion Take 1 tablet (50 mg) by mouth every 12 (twelve) hours if needed for severe pain for up to 7 days. 14 tablet 01/21/20 25 025 Active oxyCODONE-acet aminophen (Percocet) 5-325 MG tabletIndicati ons:History of fracture,Traum atic ecchymosis of left foot, initial encounter Take 1 tablet by mouth if needed each day for severe pain for up to 10 days. 10 tablet 01/04/20 25 025 Discontinued(R eorder (will not trigger notification to Pharmacy)) oxyCODONE-acet aminophen (Percocet) 5-325 MG tabletIndicati ons:History of fracture,Traum atic ecchymosis of left foot, initial encounter Take 1 tablet by mouth if needed each day for severe pain for up to 3 days. 3 tablet 01/13/20 25 025 Active Problems Problem Noted Date Diagnosed Date Current chronic use of systemic steroids Overview (01/05/2025): Chronic use of prednisone 5-10 mg daily for severe COPD (rx through Pulm) DXA scan completed 12/04/24 w/ normal bone density History of fracture 01/05/2025 Assessment & Plan (01/05/2025 2:06 PM EDT): 09/25/24: Fracture fifth metatarsal base right foot none intra-articular Today: significant pain, bruising, TTP s/p injury over 2-4th distal (head) metatarsal bones left foot. CHERY: Toes bent underneath foot while walking. C/w movement, circulation, and sensation distal to location of injury. Plan: d/t severe pain and concern for fx during last appt of Monday afternoon, recommended ED eval for further eval of bilat feel and right ribs. Pt declines plan AMA. Reports that he has appt with podiatry next week, and thus would like to complete XR and further eval there. Encouraged NWB until appt. Strict ED precautions. Pt primary concern is pain control. APAP not sufficient. Not candidate for NSAIDs given cirrhosis. Limited options for pain control. Shared decision making to send in short course of Percocet 5-325mg daily PRN (10 tablets). Reviewed strict safety concerns and not to combine with other controlled substances. Onychauxis 02/17/2024 Overview (02/17/2024): Following with [facility] - Dr. Founatin Angle-closure glaucoma, moderate stage Overview (10/04/2023): - May 2023: identified during CEE at [facility] Mood disorder 08/09/2023 Assessment & Plan (08/09/2023 8:22 AM EDT): Followed by Dr. Brendan Ruvalcaba Continues on the following medications through psych: Invega 6mg in the morning, and 3mg in the afternoon Clonazepam 1mg BID Lamotrigene 200mg BID Adderall 1mg daily Closed head injury 08/08/2023 Esophageal stricture 08/08/2023 Hypoxia 08/08/2023 O2 dependent 08/08/2023 Overview (05/26/2024): Prescribed/managed by [facility] Pulm - Dr. Cordova Apr 2024: Rest: 2.5-3 L/min Activity outside of home: 4L/min Former cigarette smoker 08/08/2023 Healthcare maintenance 01/26/2023 Overview (01/05/2025): Colonoscopy: normal (04/16/18, [facility], GI, [facility]). Due 2027 Opto: CEE May 2023 w/ [facility]. No retinopathy. DXA: normal bone density 12/04/24 Assessment & Plan (01/26/2023 6:19 PM EDT): Vaccines: rxn to 2nd pneumococcal vaccine, defer at this time. Aortic root dilation 01/26/2023 Overview (02/17/2024): A ortic root and ascending aorta are dilated and measuring up to 37 and 41 mm (compared to 37 and 39 mm 1 year ago) - , ASHWIN Villatoro. HFCCA Feb 2020 Established with [facility] Cards - Dr. Joseph Plan: annual monitoring of ascending aortic aneurysm with echo ED precautions Thrombocytopenia 12/14/2022 Overview (01/26/2023): Lab Results Component Value Date PLT 88 (L) 01/17/2023 PLT 95 (L) 12/07/2022 PLT 105 (L) 10/07/2022 Assessment & Plan (01/26/2023 6:38 PM EDT): Hx of chronic thrombocytopenia US abdomen and referral to GI ordered by Dr. Chiu on 01/20/23 Previous workup through Heme Anxiety 11/03/2022 Pulmonary nodules 11/03/2022 Overview (08/11/2023): Followed by Dr. Villegas & Dr. Cordova, plan was initially to have CT guided biopsy but according to pt the nodule shrunk and it was held off Plan for continued monitoring of nodule in right upper lobe Referral to re-establish with Dr. Serrato 08/11/23 Singers' nodes 10/18/2019 Cirrhosis 05/24/2019 Overview (01/05/2025): Following with [facility] GI - Dr. Handy Vaccines: Hep A - completed series 09/2024 Hep B - due to re-check abx. If negative --> Heplisav - B Encouraged to avoid NSAIDs, alcohol, and other hepatotoxins Abdominal US [...] cirrhosis. C/w hepatic steatosis, no hepatic mass. Abd US November 2024: Findings suggestive of cirrhosis of the liver. No ascites is identified. 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 Cordova at [facility] Advanced COPD Last exacerbation: 12/07/22, hospitalized for sepsis / PNA / acute on chronic respiratory failure Treatment regimen: Trelegy 200-62.5-25 MCG/ACT aerosol powder Prednisone 5-10 mg daily ProAir 2 puffs Q 4-6 hours p.r.n. only as emergency rescue inhaler Previous meds: Continues on supplemental oxygen: 2.5-3L O2 at rest, 4L with activity Assessment & Plan (09/30/2024 10:05 AM EDT): PA for Advair pending through pul. Wheezing on exam improved s/p DuoNeb. Follow-up precautions. Assessment & Plan (05/26/2024 5:53 PM EST): [...] 12/08/2011 Gastroesophageal reflux disease 11/10/2011 Overview (01/26/2023): Following with GI Continues with omeprazole 40mg BID Hypertension 11/10/2011 [...] Metoprolol tartrate 25mg BID Atorvastatin 20mg nightly -Concurrent history of aortic root dilation -Last available Cards consult note from Feb 2020, with plan for repeat Echo x 1 year a ortic root and ascending aorta are dilated and [...] Encounters Date Type Department Care Team Description 01/20/2025 Orders Only [facility] [address] [place] [address] Ruchi Alexandre FNP Bone lesion (Primary Dx) 01/17/2025 Telephone [facility] [address] [place] [address] Ruchi Alexandre FNP No Show 01/17/2025 Travel 01/16/2025 Telephone [facility] [address] [place] [address] Ruchi Alexandre FNP Appointment Request 01/15/2025 Orders Only [facility] External Provider, [facility] 01/14/2025 Orders Only GENERIC EXTERNAL DATA DEPARTMENT Provider, Generic External Data 01/12/2025 Orders Only [facility] [address] [place] [address] Ruchi Alexandre FNP History of fracture; Traumatic ecchymosis of left foot, initial encounter 01/08/2025 Telephone [facility] [address] [place] [address] Ruchi Alexandre FNP 01/03/2025 3:30 PM EDT Office Visit [facility] [address] [place] [address] Ruchi Alexandre FNP Traumatic ecchymosis of left foot, initial encounter (Primary Dx); History of fracture; Current chronic use of systemic steroids; Healthcare maintenance; Cirrhosis of liver without ascites, unspecified hepatic cirrhosis type (CMS/HCC); Chronic obstructive pulmonary disease, unspecified COPD type (CMS/HCC); History of fall 01/03/2025 Travel 12/08/2024 Results Follow-Up [facility] [address] [place] [address] Ruchi Alexandre FNP BD DEXA Axial 11/27/2024 Telephone [facility] [address] [place], [place] [phone] Ruchi Alexandre FNP Referral 11/26/2024 Orders Only [facility] External Provider, [facility] from Last 3 Months Immunizations Immunization Administration Dates Next Due Hep A, Adult 09/30/2024,03/22/2023 Hep B, adult 08/09/2023,,03/14/2007,10/24,08/08/2006 Influenza High-dose Quadriva lent Preservative Free 02/28/2022 Influenza injectable quadriv alent IIV4 with preservative 03/01/2018,02/24/2016,05/12/2015 Influenza injectable quadriv alent preservative free 05/09/2023,03/23/2021,04/13/2020,03/01,03/22/2017 Influenza, High Dose Seasona l, Preservative Free 05/20/2024 Influenza, IIV3, injectable 04/01/2014, 1 Influenza, Split (incl. saira fied surface antigen) 03/14/2013,04/03/2012 Pfizer Covid-19 Vaccine 12+ 05/20/2024, Pneumococcal Polysaccharide PPSV23 02/16/2009, Tdap 10/21/2010 Social [...] is your housing situation today? I have alfredomarguerite preston 02/16/[address] you [...] Sign Reading Time Taken Comments Blood Pressure 108/81 01/03/2025 3:39 PM EDT Pulse 88 01/03/2025 3:39 PM EDT Temperature 36.4 C (97.6 F) 01/03/2025 3:39 PM EDT Respiratory Rate 20 01/03/2025 3:39 PM EDT Oxygen Saturation 98% 01/03/2025 3:39 PM EDT Inhaled Oxygen Concentration - - Weight 83 kg (183 lb) 01/03/2025 3:39 PM EDT Height 177.8 cm (5' 10 ) 01/03/2025 3:39 PM EDT Body Mass Index 26.26 01/03/2025 3:39 PM EDT Plan of Treatment Health Maintenance Due Date Last Done Comments [...] (2 - Td or Tdap) 10/21/2020 10/21/2010 COVID-19 Vaccine ( season) 2024 05/20/2024, 05/09/2023, 03/28/2022, Additional history exists Influenza Vaccine (#1) 2025 , 05/09/2023, 02/28/2022, Additional history exists Depression Screening 2025 02/16/2024, 02/16/20 SDOH Screening 2025 02/16/2024 Alcohol/Substance Use Screening 05/20/2025 05/20/2024 Tobacco Screening 09/30/2025 09/30/2024 Colonoscopy 04/16/2028 04/16/2018 Colorectal Cancer Screening 04/16/2028 [...] WO CONTRAST Routine 01/15/2025 3:54 AM EDT SLIDE REVIEW Routine 01/14/2025 9:59 PM EDT HIGH SENSITIVITY TROPONIN I Routine 01/14/2025 9:59 PM EDT CBC WITH AUTO DIFFERENTIAL Routine 01/14/2025 9:59 PM EDT LIPASE Routine 01/14/2025 9:59 PM EDT MAGNESIUM Routine 01/14/2025 9:59 PM EDT COMPREHENSIVE METABOLIC PANEL Routine 01/14/2025 9:59 PM EDT SARS COV2/INFLUENZA A/B AND RSV RNA QL NAAT Routine 01/14/2025 9:59 PM EDT BD DEXA AXIAL Routine 12/04/2024 1:45 PM EDT Current chronic use of systemic steroids Multiple fracture US ABDOMEN LIMITED Routine 11/26/2024 3: 51 PM EDT HEPATITIS C AB W/REFL TO HCV RNA, QN, PCR Routine 02/03/2023 3:24 PM EDT Thrombocytopenia (CMS/HCC) Hepatic fibrosis HM COLONOSCOPY Routine 04/16/2018 8:27 AM EST Healthcare maintenance from Last 3 Months or Most Recently Relevant to Health Maintenance Results * CT Lumbar Spine w/o Contrast (01/15/2025 3:54 AM EDT) Anatomical Region Laterality Modality Spine, L-spine Computed Tomogra phy 01/15/2025 3:54 AM EDT Narrative 01/15/2025 3:56 AM EDT [address] [address] [address] Scan Report Signed Patient: Jony Murillo MR#: [id number] 017 : 1960 Acct:[id number] Age/Sex: 64 / M ADM Date: 01/15/25 Loc: HO.ED Attending Dr: Ordering Physician: Montserrat Muhammad Date of Service: 01/15/25 Procedure(s): CT lumbar spine wo IV con Accession Number(s): [id number] cc: Montserrat Muhammad; Ruchi Alexandre [facility] Report Number: [id number]: Total DLP = 475.00 mGy-cm CLINICAL HISTORY: pain compression fx? CT lumbar spine without contrast Comparison: CT/SR - CT CHEST WO IV CON - 06/11/24 17:[address]/REG/FL/SR - ABD PELV W PO CON ONLY [id number] - 10/04/18 23:44 EDT Findings: There are [...] signed by John Hadley MD in OV> 01/15/256 DD/ 3 TD/TT: 01/15/25353 Estate Conservator: Procedure Note Donotuseinterpreter, Image - 01/15/[address] [place] [address] [address] Scan Report Signed Patient: Betsy Murillo#: [id number] 017 : 8Acct:[id number] Age/Sex: 64 / MADM Date: 01/15/25 Loc: HO.ED Attending Dr: Ordering Physician: Montserrat Muhammad Date of Service: 01/15/25 Procedure(s): CT lumbar spine wo IV con Accession Number(s): [id number] cc: Montserrat Muhammad; Ruchi Alexandre [employer] Report Number: [id number]: Total DLP = 475.00 mGy-cm CLINICAL HISTORY: pain compression fx? CT lumbar spine without contrast Comparison: CT/SR - CT CHEST WO IV CON - 06/11/24 17:[address]/REG/FL/SR - ABD PELV W PO CON ONLY [id number] - 10/04/18 23:44 EDT Findings: There are [...] Hadley MD in OV> 01/15/25 0356 DD/ 0354 TD/TT: 01/15/25 0354 Estate Conservator: [facility] External Provider IMG CT PROCEDURES Final Result * Slide Review (01/14/2025 9:59 PM EDT) Slide Review VERIFIED [facility] 01/14/2025 9:59 PM EDT 01/14/2025 10:04 PM EDT Generic External Data Provider LAB BLOOD ORDERAB LES Final Result [facility] [address] [place] [phone] * High Sensitivity Troponin I (01/14/2025 9:59 PM EDT) Pathologist [facility] TROPONIN I HIGH SENSITIVITY <2.7 <3.5 - 35.0 ng/L [facility] Comment:The [place] high sens itivity Troponin-I results should beused in conjunction with other diagnostic information suchas ECG, clinical observations and information, and patientsymptoms to aid in the diagnosis of UT. 01/14/2025 9:59 PM EDT 01/14/2025 10:04 PM EDT Generic External Data Provider LAB BLOOD ORDERAB LES Final Result Performing Organization Address [facility] Co de Phone Number [facility] [address] [place] [address] [phone] * SARS-CoV-2 RNA, Influenza A/B, and RSV RNA, Ql NAAT (01/14/2025 9:59 PM EDT) Pathologist [facility] Influenza A PCR NEGATIVE Negative [facility] Influenza B PCR NEGATIVE Negative [facility] Resp Syncy Virus RNA Qual PCR NEGATIVE Negative [facility] SARS COV2 PCR NEGATIVE Negative [facility] Comment:All test results mus t [...] use by authorized laboratories.Testing performed on the [employer] GeneXpert utilizingreal-time RT-PCR.All SARS CoV2 and positive influenza A/B results arereported to [facility]. 01/14/2025 9:59 PM EDT 01/14/2025 10:04 PM EDT us Generic External Data Provider LAB MICROBIOLOGY - GENERAL ORDERABLES Final Result Performing Organization Address City/[facility]/ZIP Co de Phone Number [facility] [address] [place], [place] [phone] * (ABNORMAL) CBC auto differential (01/14/2025 9:59 PM EDT) White Blood Count 5.7 4.8 - 10.8 X10*3/uL [facility] Red Blood Count 3.31(L) 4.60 - 5.80 X10*6/uL [facility] Hemoglobin 11.0(L) 14.0 - 18.0 g/dl [facility] Hematocrit 33.5(L) 42.0 - 52.0 % [facility] Mean Corpuscular Volume 101.2(H) 80.0 - 98.0 fL [facility] Mean Corpuscular Hemoglobin 33.2(H) 27.0 - 33.0 pg [facility] Mean Corpuscular HGB Conc 32.8 31.0 - 36.0 g/dl [facility] Red Cell Distribution Width 17.5(H) 11.0 - 16.0 % [facility] Platelet Count 63(L) 160 - 400 X10*3/uL [facility] Neutrophils Percent Auto 26.2(L) 45 - 73 % [facility] Imm Gran Pct Auto 3.9(H) 0.0 - 0.4 % [facility] Lymphocytes Percent Auto 11.8(L) 20 - 40 % [facility] Monocytes Percent Auto 57.5(H) 2 - 11 % [facility] Eosinophils Percent Auto 0.4 0 - 4 % [facility] Basophils Percent Auto 0.2 0 - 2 % [facility] NRBC Pct Auto 0.0 0.0 - 0.2 /100WBC [facility] Neutrophils Absolute Auto 1.5(L) 2.0 - 8.3 x10*3/uL [facility] Imm Gran Abs Auto 0.22(H) 0.00 - 0.03 X10*3/uL [facility] Lymphocytes Absolute Auto 0.7(L) 1.2 - 4.9 X10*3/uL [facility] Monocytes Absolute Auto 3.3(H) 0.1 - 1.2 X10*3/uL [facility] Eosinophils Absolute Auto 0.0 0.0 - 0.4 X10*3/uL [facility] Basophils Absolute Auto 0.0 0.0 - 0.2 X10*3/uL [facility] NRBC Abs Auto 0.000 0.0 - 0.012 X10*3/uL [facility] 01/14/2025 9:59 PM EDT 01/14/2025 10:04 PM EDT us Generic External Data Provider LAB BLOOD ORDERAB LES Edited Result - Final Performing Organization Address City/[facility]/ZIP Co de Phone Number [facility] [address] [place] [phone] * Magnesium (01/14/2025 9:59 PM EDT) Magnesium 2.2 1.6 - 2.6 mg/dL [facility] 01/14/2025 9:59 PM EDT 01/14/2025 10:04 PM EDT us Generic External Data Provider LAB BLOOD ORDERAB LES Final Result Performing Organization Address City/[facility]/ZIP Co de Phone Number [facility] [address] [place] [phone] * Lipase (01/14/2025 9:59 PM EDT) Lipase 17 8 - 78 U/L [facility] 01/14/2025 9:59 PM EDT 01/14/2025 10:04 PM EDT us Generic External Data Provider LAB BLOOD ORDERAB LES Final Result Performing Organization Address City/[facility]/ZIP Co de Phone Number [facility] [address] [place] [phone] * (ABNORMAL) Comprehensive Metabolic Panel (01/14/2025 9:59 PM EDT) Sodium 139 135 - 145 mmol/L [facility] Potassium 3.9 3.3 - 5.1 mmol/L [facility] Chloride 103 96 - 108 mmol/L [facility] Carbon Dioxide 24 22 - 29 mmol/L [facility] Anion Gap 16 12 - 20 [facility] Urea Nitrogen (BUN) 7(L) 9 - 16 mg/dL [facility] Creatinine, Serum 0.93 0.5 - 1.4 mg/dL [facility] Creatinine Clr Calc Pharmacy 80.6 [facility] Comment:eGFR (calculated fro m the MDRD study equation) and eCrCl(calculated from the Cockcroft-Gault equation) are based ondifferent parameters and may not yield comparable results.If eCrCl result is absurd, please check patient'sheight/weight. Estimated Glomerular Filt Rate >60 [facility] Comment:Chronic Kidney Disea se: Estimated GFR < 60 mL/min/1.77v1Dkjiix Kidney Disease: Estimated GFR < 15 mL/min/1.73m2 Glucose 100 60 - 115 mg/dL [facility] Calcium 8.3(L) 8.4 - 10.2 mg/dL [facility] Bilirubin, Total 1.5(H) 0.0 - 1.0 mg/dL [facility] Aspartate Amino Transferase 14 5 - 37 U/L [facility] Alanine Aminotransferase 13 0 - 40 U/L [facility] Total Protein 7.5 6.5 - 8.0 g/dL [facility] Albumin Level 4.1 3.5 - 5.0 g/dL [facility] Alkaline Phosphatase 131(H) 39 - 117 U/L [facility] 01/14/2025 9:59 PM EDT 01/14/2025 10:04 PM EDT us Generic External Data Provider LAB BLOOD ORDERAB LES Final Result [facility] [address] [place] [phone] * BD DEXA Axial (12/04/2024 1:45 PM EDT) Anatomical Region Laterality Modality Body Radiographic Sherri ging 12/04/2024 1:45 PM EDT Narrative 12/04/2024 2:16 PM EDT [facility] [address] [place] [address] Mammography Report Signed Patient: Jony Murillo MR#: [id number] 017 : 1960 Acct:[id number] Age/Sex: 64 / M ADM Date: 12/04/24 Loc: HO.MAMMO Attending Dr: Ruchi PARNELL Ordering Physician: Ruchi Alexandre Results: Date of Service: 12/04/24 Follow Up: Procedure(s): XR DEXA axial skeleton Accession Number(s): [id number] cc: Ruchi Alexandre EXAMINATION: DXA BONE DENSITY AXIAL HISTORY: STATION AGENT USE OF STEROIDS TECHNIQUE: [employer] Dual energy absorptiometry (DEXA) of the lumbar spine, total left hip, and femoral neck was performed. COMPARISON: There are no prior studies for comparison. FINDINGS: The bone mineral density of the lumbar spine is 1.347 g/cm2, corresponding to a T-score of 1.2, and a Z-score of 1.4. This is indicative of normal bone mineral density. The bone mineral density of the left total hip is 0.954 g/cm2, corresponding to a T-score of -1.0, and a Z-score of -0.6. This is indicative of normal bone mineral density. The bone mineral density of the left femoral neck is 1.106 g/cm2, corresponding to a T-score of 0.3, and a Z-score of 1.2. This is indicative of normal bone mineral density. FRACTURE RISK: The FRAX index suggests a risk of major osteoporotic fracture of 11.0%, and of hip fracture 0.7%. MM/XR DEXA axial skeleton IMPRESSION: Based on bone mineral density, and according to World Health Organization (WHO) criteria, the diagnosis is consistent with normal bone mineral density. Statistically, 68% of repeat scans fall within 1 SD (+/- 0.010 g/cm2 for AP spine L1-L4) and 1 SD (+/- 0.012 g/cm2 for femur total) FRAX is a trademark of the [employer] Metabolic Bone Disease, a World Health Organization (WHO) Collaborating Center. Electronically signed by: Sadiq Troncoso MD 12/04/2024 02:14 PM EDT RP Dictated By: Sadiq Troncoso MD Signed By: <Electronically signed by Sadiq Troncoso MD in OV> 12/04/24 1414 DD/ 1345 TD/TT: 12/04/24 1405 Estate Conservator: Procedure Note Donotuseinterpreter, Image - 12/04/2024 [facility] [address] [place], [place] [address] Mammography Report Signed Patient: Betsy Murillo#: [id number] 017 : 8Acct:[id number] Age/Sex: 64 / MADM Date: 12/04/24 Loc: HO.MAMMO Attending Dr: Ruchi PARNELL Ordering Physician: Ruchi AlexandrePResults: Date of Service: 12/04/24Follow Up: Procedure(s): XR DEXA axial skeleton Accession Number(s): [id number] cc: Ruchi Alexandre EXAMINATION: DXA BONE DENSITY AXIAL HISTORY: CUSTODIAL USE OF STEROIDS TECHNIQUE: vArmour Dual energy absorptiometry (DEXA) of the lumbar spine, total left hip, and femoral neck was performed. COMPARISON: There are no prior studies for comparison. FINDINGS: The bone mineral density of the lumbar spine is 1.347 g/cm2, corresponding to a T-score of 1.2, and a Z-score of 1.4. This is indicative of normal bone mineral density. The bone mineral density of the left total hip is 0.954 g/cm2, corresponding to a T-score of -1.0, and a Z-score of -0.6. This is indicative of normal bone mineral density. The bone mineral density of the left femoral neck is 1.106 g/cm2, corresponding to a T-score of 0.3, and a Z-score of 1.2. This is indicative of normal bone mineral density. FRACTURE RISK: The FRAX index suggests a risk of major osteoporotic fracture of 11.0%, and of hip fracture 0.7%. MM/XR DEXA axial skeleton IMPRESSION: Based on bone mineral density, and according to World Health Organization (WHO) criteria, the diagnosis is consistent with normal bone mineral density. Statistically, 68% of repeat scans fall within 1 SD (+/- 0.010 g/cm2 for AP spine L1-L4) and 1 SD (+/- 0.012 g/cm2 for femur total) FRAX is a trademark of the [employer] Metabolic Bone Disease, a World Health Organization (WHO) Collaborating Center. Electronically signed by: Sadiq Troncoso MD 12/04/2024 02:14 PM EDT Dictated By: Sadiq Troncoso MD Signed By: <Electronically signed by Sadiq Troncoso MD in OV> 12/04/24 1414 DD/ 1345 TD/TT: 12/04/24 1405 Estate Conservator: us Ruchi Alexandre BENCH ASSEMBLER ELECTRICAL IMG DXA PROCEDURES Final Resul t * US Abdomen Limited (11/26/2024 3:51 PM EDT) Anatomical Region Laterality Modality Abdomen Ultrasound 11/26/2024 3:51 PM EDT Narrative 11/27/2024 1:13 PM EDT [address] [address] Ultrasound Report Signed Patient: Jony Murillo MR#: [id number] 017 : 1960 Acct:[id number] Age/Sex: 64 / M ADM Date: 11/26/24 Loc: HO.US Attending Dr: Melissa Handy MD Ordering Physician: Melissa Handy MD Date of Service: 11/26/24 Procedure(s): US abdomen limited Accession Number(s): [id number] cc: Melissa Handy MD; Ruchi Alexandre BENCH ASSEMBLER ELECTRICAL EXAMINATION: US ABDOMEN LIMITED HISTORY: K74.60 - Unspecified cirrhosis of liver TECHNIQUE: Real-time grayscale ultrasound imaging of the liver was performed and images were reviewed. Imaging of the 4 quadrants of the abdomen was also performed to assess for ascites. COMPARISON: Comparison is made with the prior examination dated 05/31/2024. FINDINGS: Liver: The right lobe of the liver measures 17.5 cm in size. The left lobe of the liver measures 7.6 cm in size. The liver demonstrates coarsened echotexture and demonstrates a mildly nodular contour suggestive of cirrhosis. No focal mass or intrahepatic biliary ductal dilatation is identified. There is normal hepatopedal flow in the portal vein. No ascites is seen in the 4 quadrants of the abdomen. US/US abdomen limited IMPRESSION: Findings suggestive of cirrhosis of the liver. No ascites is identified. Electronically signed by: Sadiq Troncoso MD 11/27/2024 07:01 AM EDT Dictated By: Sadiq Troncoso MD Signed By: <Electronically signed by Sadiq Troncoso MD in OV> 11/27/24 0701 DD/ 1551 TD/TT: 11/26/24 1610 Estate Conservator: Procedure Note Donotuseinterpreter, Image - 11/27/2024 [place] [address] Ultrasound Report Signed Patient: Betsy Murillo#: [id number] : 8Acct:[id number] Age/Sex: 64 / MADM Date: 11/26/24 Loc: HO.US Attending Dr: Melissa Handy MD Ordering Physician: Mleissa Handy MD Date of Service: 11/26/24 Procedure(s): US abdomen limited Accession Number(s): [id number] cc: Melissa Handy MD; Ruchi Alexandre EXAMINATION: US ABDOMEN LIMITED HISTORY: K74.60 - Unspecified cirrhosis of liver TECHNIQUE: Real-time grayscale ultrasound imaging of the liver was performed and images were reviewed. Imaging of the 4 quadrants of the abdomen was also performed to assess for ascites. COMPARISON: Comparison is made with the prior examination dated 05/31/2024. FINDINGS: Liver: The right lobe of the liver measures 17.5 cm in size. The left lobe of the liver measures 7.6 cm in size. The liver demonstrates coarsened echotexture and demonstrates a mildly nodular contour suggestive of cirrhosis. No focal mass or intrahepatic biliary ductal dilatation is identified. There is normal hepatopedal flow in the portal vein. No ascites is seen in the 4 quadrants of the abdomen. US/US abdomen limited IMPRESSION: Findings suggestive of cirrhosis of the liver. No ascites is identified. Electronically signed by: Sadiq Troncoso MD 11/27/2024 07:01 AM EDT Dictated By: Sadiq Troncoso MD Signed By: <Electronically signed by Sadiq Troncoso MD in OV> 11/27/24 0701 DD/ 1551 TD/TT: 11/26/24 1610 Estate Conservator: [facility] External Provider IMG US PROCEDURES Final Result * Hepatitis C Antibody with Reflex to HCV, RNA, Quantitative, Real-Time PCR (02/03/2023 3:24 PM EDT) Hepatitis C Antibody Nonreactive Nonreactive [facility] Comment:Antibodies to HCV no t detected; does not exclude early acuteHCV infection. Blood Venous blood specimen / Unknown 02/03/2023 3:24 PM EDT 02/03/2023 4:05 PM EDT Isabella Chiu MD LAB BLOOD ORDERABLES Final Resul t [facility] [address] [place] [phone] from Last 3 Months or Most Recently Relevant to Health Maintenance Insurance MEDICARE [facility] STANDARD Care Teams Guest Services Manager Relationship Specialty Start Date End Date Ruchi Alexandre FNP [address] [place] [phone] PCP - General Family Medicine 07/19/22 Dr. Chirag Cordova Pulmonary Disease 05/26/24
--- OUTSIDE RECORDS SUMMARY | 2025-01-20 17:51 | XMS_ITS | Encounter Summary ---
Author Organization [employer] Address [address] [facility] [address] [place] [address] Care Team Providers Care Neurology Director Name Role Phone Ruchi Alexandre INTERNATIONAL MARKETING MANAGER Primary Care Provider Encounter Details Date Type Department Care Team ([facility] Contact Info) Description 01/14/2025 Orders Only GENERIC EXTERNAL DATA DEPARTMENT Provider, Generic External Data Social History Tobacco Use Types Packs/Day Years [...] Procedure Name Priority Date/Time Associated Diagnosis Comments SLIDE REVIEW Routine 01/14/2025 9:59 PM EDT HIGH SENSITIVITY TROPONIN I Routine 01/14/2025 9:59 PM EDT SARS COV2/INFLUENZA A/B AND RSV RNA QL NAAT Routine 01/14/2025 9:59 PM EDT CBC WITH AUTO DIFFERENTIAL Routine 01/14/2025 9:59 PM EDT MAGNESIUM Routine 01/14/2025 9:59 PM EDT LIPASE Routine 01/14/2025 9:59 PM EDT COMPREHENSIVE METABOLIC PANEL Routine 01/14/2025 9:59 PM EDT documented in this encounter Results * Slide Review (01/14/2025 9:59 PM EDT) Slide Review VERIFIED [facility] 01/14/2025 9:59 PM EDT 01/14/2025 10:04 PM EDT us Generic External Data Provider LAB BLOOD ORDERAB LES Final Result [facility] [address] [place] [phone] * SARS-CoV-2 RNA, Influenza A/B, and RSV RNA, Ql NAAT (01/14/2025 9:59 PM EDT) Influenza A PCR NEGATIVE Negative [facility] Influenza B PCR NEGATIVE Negative [facility] Resp Syncy Virus RNA Qual PCR NEGATIVE Negative [facility] SARS COV2 PCR NEGATIVE Negative [facility] Comment:All test results mus t [...] use by authorized laboratories.Testing performed on the [facility] GeneXpert utilizingreal-time RT-PCR.All SARS CoV2 and positive influenza A/B results arereported to [facility]. 01/14/2025 9:59 PM EDT 01/14/2025 10:04 PM EDT us Generic External Data Provider LAB MICROBIOLOGY - GENERAL ORDERABLES Final Result Performing Organization Address [facility] Co de Phone Number [facility] [address] [place] [phone] * High Sensitivity Troponin I (01/14/2025 9:59 PM EDT) TROPONIN I HIGH SENSITIVITY <2.7 <3.5 - 35.0 ng/L [facility] Comment:The [place] high sens itivity Troponin-I results should beused in conjunction with other diagnostic information suchas ECG, clinical observations and information, and patientsymptoms to aid in the diagnosis of [place]. 01/14/2025 9:59 PM EDT 01/14/2025 10:04 PM EDT us Generic External Data Provider LAB BLOOD ORDERAB LES Final Result Performing Organization Address [facility]/ZIP Co de Phone Number [facility] [address] [place] [phone] [phone] * (ABNORMAL) CBC auto differential (01/14/2025 9:59 PM EDT) White Blood Count 5.7 4.8 - 10.8 X10*3/uL [facility] Red Blood Count 3.31(L) 4.60 - 5.80 X10*6/uL [facility] Hemoglobin 11.0(L) 14.0 - 18.0 g/dl [facility] Hematocrit 33.5(L) 42.0 - 52.0 % [facility] Mean Corpuscular Volume 101.2(H) 80.0 - 98.0 fL [facility] Mean Corpuscular Hemoglobin 33.2(H) 27.0 - 33.0 pg [facility] Mean Corpuscular HGB Conc 32.8 31.0 - 36.0 g/dl [facility] Red Cell Distribution Width 17.5(H) 11.0 - 16.0 % [facility] Platelet Count 63(L) 160 - 400 X10*3/uL [facility] Neutrophils Percent Auto 26.2(L) 45 - 73 % [facility] Imm Gran Pct Auto 3.9(H) 0.0 - 0.4 % [facility] Lymphocytes Percent Auto 11.8(L) 20 - 40 % [facility] Monocytes Percent Auto 57.5(H) 2 - 11 % [facility] Eosinophils Percent Auto 0.4 0 - 4 % [facility] Basophils Percent Auto 0.2 0 - 2 % [facility] NRBC Pct Auto 0.0 0.0 - 0.2 /100WBC [facility] Neutrophils Absolute Auto 1.5(L) 2.0 - 8.3 x10*3/uL [facility] Imm Gran Abs Auto 0.22(H) 0.00 - 0.03 X10*3/uL [facility] Lymphocytes Absolute Auto 0.7(L) 1.2 - 4.9 X10*3/uL [facility] Monocytes Absolute Auto 3.3(H) 0.1 - 1.2 X10*3/uL [facility] Eosinophils Absolute Auto 0.0 0.0 - 0.4 X10*3/uL [facility] Basophils Absolute Auto 0.0 0.0 - 0.2 X10*3/uL [facility] NRBC Abs Auto 0.000 0.0 - 0.012 X10*3/uL [facility] 01/14/2025 9:59 PM EDT 01/14/2025 10:04 PM EDT us Generic External Data Provider LAB BLOOD ORDERAB LES Edited Result - Final Performing Organization Address [facility]/ZIP Co de Phone Number [facility] [address] [place] [phone] * Lipase (01/14/2025 9:59 PM EDT) Lipase 17 8 - 78 U/L [facility] 01/14/2025 9:59 PM EDT 01/14/2025 10:04 PM EDT Generic External Data Provider LAB BLOOD ORDERAB LES Final Result Performing Organization Address [facility] Co de Phone Number [facility] [address] [place] [phone] * Magnesium (01/14/2025 9:59 PM EDT) Magnesium 2.2 1.6 - 2.6 mg/dL [facility] 01/14/2025 9:59 PM EDT 01/14/2025 10:04 PM EDT Generic External Data Provider LAB BLOOD ORDERAB LES Final Result Performing Organization Address [facility]/ZIP Co de Phone Number [facility] [address] [place] [phone] * (ABNORMAL) Comprehensive Metabolic Panel (01/14/2025 9:59 PM EDT) Sodium 139 135 - 145 mmol/L [facility] Potassium 3.9 3.3 - 5.1 mmol/L [facility] Chloride 103 96 - 108 mmol/L [facility] Carbon Dioxide 24 22 - 29 mmol/L [facility] Anion Gap 16 12 - 20 [facility] Urea Nitrogen (BUN) 7(L) 9 - 16 mg/dL [facility] Creatinine, Serum 0.93 0.5 - 1.4 mg/dL [facility] Creatinine Clr Calc Pharmacy 80.6 [facility] Comment:eGFR (calculated fro m the MDRD study equation) and eCrCl(calculated from the Cockcroft-Gault equation) are based ondifferent parameters and may not yield comparable results.If eCrCl result is absurd, please check patient'sheight/weight. Estimated Glomerular Filt Rate >60 [facility] Comment:Chronic Kidney Disea se: Estimated GFR < 60 mL/min/1.75b7Okuygc Kidney Disease: Estimated GFR < 15 mL/min/1.73m2 Glucose 100 60 - 115 mg/dL [facility] Calcium 8.3(L) 8.4 - 10.2 mg/dL [facility] Bilirubin, Total 1.5(H) 0.0 - 1.0 mg/dL [facility] Aspartate Amino Transferase 14 5 - 37 U/L [facility] Alanine Aminotransferase 13 0 - 40 U/L [facility] Total Protein 7.5 6.5 - 8.0 g/dL [facility] Albumin Level 4.1 3.5 - 5.0 g/dL [facility] Alkaline Phosphatase 131(H) 39 - 117 U/L [facility] 01/14/2025 9:59 PM EDT 01/14/2025 10:04 PM EDT us Generic External Data Provider LAB BLOOD ORDERAB LES Final Result [facility] [address] [place] [phone] documented in this encounter Visit Diagnoses Not on filedocumented in this encounter Additional Health Concerns Assessment Noted Time PHQ-9 Depression Total Score: 0 02/16/20 3:53 PM EDT documented as of this encounter Care Teams Neurology Director Relationship Specialty Start Date End Date Ruchi Alexandre FNP [address] [place] [address] PCP - General Family Medicine 07/19/22 Dr. Chirag Cordova Pulmonary Disease 05/26/24 documented as of this encounter
--- OUTSIDE RECORDS SUMMARY | 2025-01-20 17:52 | XMS_ITS | Clinical Summary ---
Author Organization [facility] Address [address] [place] [address] Phone Care Team Providers Care Ross Carrier Driver Name Role Phone Ruchi Alexandre RN Primary Care Provider Allergies No known active allergies Medications clotrimazole (LOTRIMIN) 1 % cream Apply to skin and toenails daily for 12 weeks 10/20/2023 Active Encounters Date Type Department Care Team Description 01/15/2025 2:30 PM EDT Office Visit Orthopedic Surgery [place] [phone] [phone] Jhonatan Fountain DPM Closed nondisplaced fracture of proximal phalanx of toe of left foot (Primary Dx); Follow-up exam; Closed nondisplaced fracture of fifth metatarsal bone of right foot with routine healing, subsequent encounter 11/06/2024 3:15 PM EDT Office Visit [facility] [address] [phone] Jhonatan Fountain DPM Closed nondisplaced fracture of fifth metatarsal bone of right foot with routine healing, subsequent encounter (Primary Dx); Follow-up exam; Dermatophytosis of nail; Pain in toe of right foot; Bilateral femoral artery stenosis (CMS/HCC V24); Pain in toe of left foot from Last 3 Months Immunizations Name Administration [...] PM EDT Office Visit [facility] [place] [address] [place] [address] [place] [phone] Jhonatan Fountain, [address] [phone] Health Maintenance Due Date Last Done Comments [...] Health Screening 05/01/2022 Falls Risk Assessment 2023 Depression Screening 05/29/2024 COVID-19 Vaccine ( season) 2024 05/20/2024, 05/09/2023, 03/28/2022, Additional history exists Influenza Vaccine (#1) 2025 , 05/09/2023, 02/28/2022, Additional history exists Hypertension/CHF/CAD Annual BMP Blood Test 01/14/2026 01/14/2025, 05/23/2024, 07/24/2023 Hepatitis C Screening Completed 02/03/2023, [...] Associated Diagnosis Comments XR FOOT 3+ VIEWS BILAT Routine 01/15/2025 3:10 PM EDT Follow-up exam XR FOOT 3+ VIEWS RIGHT Routine 11/06/2024 3:11 PM EDT Follow-up exam ANNUAL BMP BLOOD TEST Routine 07/24/2023 HEPATITIS C SCREENING Routine 02/03/2023 from Last 3 Months or Most Recently Relevant to Health Maintenance Results * XR Foot 3+ Views bilat (01/15/2025 3:10 PM EDT) Anatomical Region Laterality Modality Lower Extremities, Foot Bilateral Computed Radiography Narrative 01/15/2025 5:04 PM EDT Right foot 3 views Fracture fifth metatarsal base with signs of consolidation and trabeculation Left foot 3 views Fracture proximal phalanx left fifth base intra-articular us Jhonatan Fountain DPM IMG XR PROCEDURES Final R esult * XR Foot 3+ Views Right (11/06/2024 3:11 PM EDT) Anatomical Region Laterality Modality Lower Extremities, Foot [...] Insurance MEDICAID - [place] MEDICARE Care Teams Ross Carrier Driver Relationship Specialty Start Date End Date Ruchi Alexandre RN [address] [address] PCP - General 10/06/23
--- OUTSIDE RECORDS SUMMARY | 2025-01-20 17:52 | XMS_ITS | Encounter Summary ---
Author Organization [employer] Address [address] [place] [address] [address] [place] [address] Care Team Providers Care Jig Grinder Name Role Phone Ruchi Alexandre PARMJIT Primary Care Provider [phone] Reason for Referral * Imaging (Urgent) - Closed Specialty Diagnoses / Procedures Referred By Melva de los santos Referred To Contact Radiology Diagnoses Thrombocytopenia (CMS/HCC) Hepatic fibrosis Procedures US Abdomen Comp w elastography Isabella Chiu MD [address] [place] [address] Phone: tel: fax: [address] Phone: tel: fax: Referral ID Status Reason Start Date Expiration Date Visits Re quested Visits Authorized [id number] Closed 01/20/2023 01/20/2024 1 1 Encounter Details Date Type Department Care Team (Late st Contact Info) Description 01/20/2023 Orders Only [facility] [address] [place], [place] [phone] Isabella Chiu MD [address] [place], [place] [phone] Thrombocytopenia (CMS/HCC) (Primary Dx); Hepatic fibrosis Social [...] as of this encounter Plan of Treatment Scheduled Orders Name Type Priority Associated Diagnoses [...] PM EDT) Hepatitis C Antibody Nonreactive Nonreactive [facility] Comment:Antibodies to HCV no t detected; does not exclude early acuteHCV infection. Blood Venous blood specimen / Unknown 02/03/2023 3:24 PM EDT 02/03/2023 4:05 PM EDT Isabella Chiu MD LAB BLOOD ORDERABLES Final Resul t Performing Organization Address [place] de Phone Number [facility] [address] [place] [phone] * Hepatitis B Surface Antibody, Qualitative (02/03/2023 3:24 PM EDT) ~Hepatitis B Surface Antibody NONREACTIVE Nonreactive [facility] Comment:Nonreactive: < 8.00 mIU/mL Blood Venous blood specimen / Unknown 02/03/2023 3:24 PM EDT 02/03/2023 4:05 PM EDT Isabella Chiu MD LAB BLOOD ORDERABLES Final Resul t Performing Organization Address [facility] de Phone Number [facility] [address] [place] [phone] * Hepatitis B Core Antibody, Total (02/03/2023 3:24 PM EDT) Hepatitis B Core Antibody Nonreactive Nonreactive [facility] Blood Venous blood specimen / Unknown 02/03/2023 3:24 PM EDT 02/03/2023 4:05 PM EDT Isabella Chiu MD LAB BLOOD ORDERABLES Final Resul t Performing Organization Address [facility] de Phone Number [facility] [address] [place] [phone] * Hepatitis A Antibody IgG (02/03/2023 3:24 PM EDT) Hepatitis A Antibody IgG Nonreactive Nonreactive [facility] Blood Venous blood specimen / Unknown 02/03/2023 3:24 PM EDT 02/03/2023 4:05 PM EDT us Isabella Chiu MD LAB BLOOD ORDERABLES Final Resul t [facility] [address] [place] [phone] * (ABNORMAL) Liver Fibrosis, FibroTest-ActiTest Panel (02/03/2023 3:24 PM EDT) Liver Fibrosis Score 0.49 [facility] Liver Fibrosis Stage F2 [facility] Liver Fibrosis Interpretation SEE NOTE [facility] Comment:moderate fibrosisFib ro Test Score (f) Metavir Score f>=0 and f<=0.21 : F0 (no fibrosis)f>0.21 and f<=0.27 : F0-F1 (no fibrosis)f>0.27 and f<=0.31 : F1 (minimal fibrosis)f>0.31 and f<=0.48 : F1-F2 (minimal fibrosis)f>0.48 and f<=0.58 : F2 (moderate fibrosis)f>0.58 and f<=0.72 : F3 (advanced fibrosis)f>0.72 and f<=0.74 : F3-F4 (advanced fibrosis)f>0.74 and f<=1.00 : F4 (severe fibrosis) Nec Inflam Act Score 0.02 [facility] Nec Inflam Act Grade A0 [facility] Nec Inflam Act Interpretation SEE NOTE [facility] Comment:no activityActiTest Score (a) Metavir Score a>=0 and a<=0.17 : A0 (no activity)a>0.17 and a<=0.29 : A0-A1 (no activity)a>0.29 and a<=0.36 : A1 (minimal activity)a>0.36 and a<=0.52 : A1-A2 (minimal activity)a>0.52 and a<=0.60 : A2 (significant activity)a>0.60 and a<=0.62 : A2-A3 (significant activity)a>0.62 and a<=1.00 : A3 (severe activity) CSP-Xctvy-7-Macroglo bulin 143 106 - 279 mg/dL [facility] FIB-Haptoglobin 14(A) 43 - 212 mg/dL [facility] FIB-Apolipoprotein A1 148 94 - 176 mg/dL [facility] FIB-Total Bilirubin 0.8 0.2 - 1.2 mg/dL [facility] FIB-GGT 19 3 - 70 U/L [facility] FIB-ALT 7(A) 9 - 46 U/L [facility] Reference ID [id number] [facility] Footnote SEE NOTE [facility] Comment: The reliability of results is [...] and C.The performance characteristics have been determined by[employer] [facility]. Ithas not been cleared or approved by the U.S. Food and DrugAdministration. Performance characteristics refer to theanalytical performance of the test.[employer], the associated logo, [employer] and all associated [employer] are theregistered trademarks of [employer]. All third partymarks - (R) and (TM) - are the property of their respectiveowners. (C) 4277-4484 [employer]. Allrights reserved.THIS TEST WAS PERFORMED AT:[employer] [id number] [place] [id number] CERVANTES MD,PHD,[place]UG[place] Blood 02/03/2023 3:24 PM EDT 02/03/2023 4:05 PM EDT us Isabella Chiu MD LAB BLOOD ORDERABLES Final Resul t [facility] [address] [place] [phone] * US Abdomen Comp w elastography (01/25/2023 9:55 AM EDT) Anatomical Region Laterality Modality Abdomen Ultrasound 01/25/2023 9:55 AM EDT Narrative 01/26/2023 2:33 PM EDT [place] [address] Ultrasound Report Signed Patient: Jony Murillo MR#: [id number] : 1960 Acct:[id number] Age/Sex: 62 / M ADM Date: 01/25/23 Loc: HO.US Attending Dr: Isabella Chiu MD Ordering Physician: Isabella Chiu MD Date of Service: 01/25/23 Procedure(s): US abdomen comp w elastography Accession Number(s): [id number] cc: Isabella Chiu MD EXAMINATION: US COMPLETE [...] in OV> 01/26/23 1430 DD/ 0955 TD/TT: [employer] Worker: PABLO Procedure Note Donotuseinterpreter, Image - 01/26/2023 [place] [address] Ultrasound Report Signed Patient: Betsy Murillo#: [id number] : 8Acct:[id number] Age/Sex: 62 / MADM Date: 01/25/23 Loc: HO.US Attending Dr: Isabella Chiu MD Ordering Physician: Isabella Chiu MD Date of Service: 01/25/23 Procedure(s): US abdomen comp w elastography Accession Number(s): [id number] cc: Isabella Chiu MD EXAMINATION: US COMPLETE [...] of Radiologists in Ultrasound Liver Stiffness Thresholds (2019): LIVER STIFFNESS THRESHOLDS: *Liver Stiffness equal or [...] in OV> 01/26/23 1430 DD/ 0955 TD/TT: [employer] Worker: PABLO us Isabella Chiu MD IMG US PROCEDURES Final Result documented in this encounter Visit Diagnoses Diagnosis Thrombocytopenia (CMS/HCC)- Primary Unspecified thrombocytopenia Hepatic fibrosis Cirrhosis of liver without mention of alcohol documented in this encounter Additional Health Concerns Assessment Noted Time PHQ-9 Depression Total Score: 5 11/04/19 23 1:33 PM EDT documented as of this encounter Care Teams Jig Grinder Relationship Specialty Start Date End Date Ruchi Alexandre FNP [address] [place] [phone] PCP - General Family Medicine 07/19/22 Dr. Chirag Cordova Pulmonary Disease 05/26/24 documented as of this encounter
--- OUTSIDE RECORDS SUMMARY | 2025-01-20 17:52 | XMS_ITS | Encounter Summary ---
Author Organization [email or web address] Address [address] [place] [address] Care Team Providers Care Aesthetics Instructor Name Role Phone Ruchi Alexandre NURSE'S AIDES TEACHER Primary Care Provider [phone] Encounter Details Date Type Department Care Team ([facility] st Contact Info) Description 08/15/2022 Orders Only [facility] [address] [place] [address] Sarah Estrada LPN Social History Tobacco Use [...] Blood Count 5.3 4.8 - 10.8 X10*3/uL [facility] Red Blood Count 3.39(L) 4.60 - 5.80 X10*6/uL [facility] Hemoglobin 10.3(L) 14.0 - 18.0 g/dl [facility] Hematocrit 33.3(L) 42.0 - 52.0 % [facility] Mean Corpuscular Volume 98.2(H) 80.0 - 98.0 fL [facility] Mean Corpuscular Hemoglobin 30.4 27.0 - 33.0 pg [facility] Mean Corpuscular HGB Conc 30.9(L) 31.0 - 36.0 g/dl [facility] Red Cell Distribution Width 17.5(H) 11.0 - 16.0 % [facility] Platelet Count 88(L) 160 - 400 X10*3/uL [facility] Mean Platelet Volume 13.4(H) 9.4 - 12.4 fL [facility] NRBC Pct Auto 0.0 0.0 - 0.2 /100WBC [facility] NRBC Abs Auto 0.000 0.0 - 0.012 X10*3/uL [facility] Neutrophils % Manual 21(L) 45 - 73 % [facility] Band Neutrophils Percent 6(H) 3 - 5 % [facility] Lymphocytes Percent Manual 13(L) 20 - 40 % [facility] Monocytes Percent Manual 58(H) 2 - 11 % [facility] Myelocytes 2 % [facility] NEUTROPHILS ABSOLUTE MANUAL 1.4(L) 2.0 - 8.3 X10*3/uL [facility] LYMPHOCYTES ABSOLUTE MANUAL 0.7(L) 1.2 - 4.9 X10*3/uL [facility] MONOCYTES ABSOLUTE MANUAL 3.1(H) 0.1 - 1.2 X10*3/uL [facility] Absolute Myelocytes 0.1 X10*/uL [facility] Platelet Estimate DECREASED NORMAL [facility] Platelet Morphology Comment NORMAL [facility] RBC Morphology NOTED [facility] POLYCHROMASIA 1+ (0-2) /[facility] Tear Drop Cells 1+ (0-2) /[facility] Ovalocytes 1+ (5-14) /[facility] 01/17/2023 4:43 PM EDT 01/17/2023 5:29 PM EDT us Isabella Chiu MD LAB BLOOD ORDERABLES Final Resul t [facility] [address] [place] [address] [phone] * Lactic Acid (12/07/2022 6:57 PM EDT) Lactic Acid 0.9 0.5 - 2.0 mmol/L [facility] 12/07/2022 6:57 PM EDT 12/07/2022 7:01 PM EDT [facility] External Provider LAB BLO OD ORDERABLES Final Result Performing Organization Address City/[facility]/ZIP Co de Phone Number [facility] [address] [place] [address] [phone] * (ABNORMAL) Urinalysis, Complete, with Reflex to Culture (12/07/2022 6:04 PM EDT) Color Urine Dark Yellow [facility] Appearance Urine Clear [facility] PH 6.5 5.0 - 9.0 [facility] Glucose Urine UA Negative Negative mg/dL [facility] Urine Blood Large (3+)(A) Negative [facility] Specific [place] - Urine 1.015 1.005 - 1.025 [facility] Urine Protein 100 (2+)(A) Neg-Trace mg/dL [facility] Urine Ketones Negative Negative mg/dL [facility] Nitrite Urine Negative Negative [facility] Leukocyte Esterase Urine Negative Negative [facility] RBC Urine 6-10(A) 0 - 2 /HPF [facility] Urine WBC 0-5 0 - 5 /HPF [facility] Urine Squamous Epithelial Cell 0-2 0 - 2 /HPF [facility] Urine Bacteria None Seen None Seen [facility] Hyaline Casts, Urine 0-2 0 - 2 /LPF [facility] 12/07/2022 6:04 PM EDT 12/07/2022 6:17 PM EDT Narrative [facility] - 12/07/2022 6:49 PM EDT [id number], Clean Catch [facility] External Provider LAB URI NE ORDERABLES Final Result Performing Organization Address [facility]/ZIP Co de Phone Number [facility] [address] [place] [address] [phone] * SARS-CoV-2 RNA, Influenza A/B, and RSV RNA, Ql NAAT (12/07/2022 4:10 PM EDT) Influenza A PCR NEGATIVE Negative [facility] Influenza B PCR NEGATIVE Negative [facility] Resp Syncy Virus RNA Qual PCR NEGATIVE Negative [facility] SARS COV2 PCR NEGATIVE Negative [facility] Comment:All test results mus t be [...] use by authorized laboratories.Testing performed on the [employer] GeneXpert utilizingreal-time RT-PCR.All SARS CoV2 and positive influenza A/B results arereported to [facility]. 12/07/2022 4:10 PM EDT 12/07/2022 4:15 PM EDT [facility] Exter nal Provider LAB MICROBIOLOGY - GENERAL ORDERABLES Final Result [facility] [address] [place] [phone] * High Sensitivity Troponin I (12/07/2022 4:10 PM EDT) Pathologist [facility] TROPONIN I HIGH SENSITIVITY 20.8 <3.5 - 35.0 ng/L [facility] Comment:The [place] high sens itivity Troponin-I results should beused in conjunction with other diagnostic information suchas ECG, clinical observations and information, and patientsymptoms to aid in the diagnosis of [place]. 12/07/2022 4:10 PM EDT 12/07/2022 4:13 PM EDT [facility] External Provider LAB BLO OD ORDERABLES Final Result [facility] [address] [place] [address] [phone] * (ABNORMAL) Comprehensive Metabolic Panel (12/07/2022 4:10 PM EDT) Sodium 132(L) 135 - 145 mmol/L [facility] Potassium 3.8 3.3 - 5.1 mmol/L [facility] Chloride 100 96 - 108 mmol/L [facility] Carbon Dioxide 19(L) 22 - 29 mmol/L [facility] Anion Gap 17 12 - 20 [facility] Urea Nitrogen (BUN) 9 9 - 16 mg/dL [facility] Creatinine, Serum 1.04 0.5 - 1.4 mg/dL [facility] Creatinine Clr Calc Pharmacy 74.0 [facility] Comment:eGFR (calculated fro m the MDRD study equation) and eCrCl(calculated from the Cockcroft-Gault equation) are based ondifferent parameters and may not yield comparable results.If eCrCl result is absurd, please check patient'sheight/weight. Estimated Glomerular Filt Rate >60 [facility] Comment:NOTE: For -Am erican individuals, multiply the result by 1.210.Chronic Kidney Disease: Estimated GFR < 60 mL/min/1.14q2Udfvgv Kidney Disease: Estimated GFR < 15 mL/min/1.73m2 Glucose 203(H) 60 - 115 mg/dL [facility] Calcium 9.1 8.4 - 10.2 mg/dL [facility] Bilirubin, Total 3.0(H) 0.0 - 1.0 mg/dL [facility] Aspartate Amino Transferase 81(H) 5 - 37 U/L [facility] Alanine Aminotransferase 15 0 - 40 U/L [facility] Total Protein 6.8 6.5 - 8.0 g/dL [facility] Albumin Level 3.6 3.5 - 5.0 g/dL [facility] Alkaline Phosphatase 68 39 - 117 U/L [facility] 12/07/2022 4:10 PM EDT 12/07/2022 4:13 PM EDT [facility] External Provider LAB BLO OD ORDERABLES Final Result Performing Organization Address [facility] Co de Phone Number [facility] [address] [place] [phone] * (ABNORMAL) Lactic Acid (12/07/2022 4:10 PM EDT) Lactic Acid 3.6(HH) 0.5 - 2.0 mmol/L [facility] Comment:Critical value for t est(s):LACTA Results called to franklin back by:LUZ Person calling:DORYS Date:12/07/22Time:1637 12/07/2022 4:10 PM EDT 12/07/2022 4:13 PM EDT [facility] External Provider LAB BLO OD ORDERABLES Final Result Performing Organization Address [facility] Co de Phone Number [facility] [address] [place] [phone] * Slide Review (12/07/2022 4:10 PM EDT) Slide Review VERIFIED [facility] 12/07/2022 4:10 PM EDT 12/07/2022 4:13 PM EDT [facility] External Provider LAB BLO OD ORDERABLES Final Result Performing Organization Address [facility] Co de Phone Number [facility] [address] [place] [address] [phone] * (ABNORMAL) CBC auto differential (12/07/2022 4:10 PM EDT) White Blood Count 15.5(H) 4.8 - 10.8 X10*3/uL [facility] Red Blood Count 3.33(L) 4.60 - 5.80 X10*6/uL [facility] Hemoglobin 10.0(L) 14.0 - 18.0 g/dl [facility] Hematocrit 31.7(L) 42.0 - 52.0 % [facility] Mean Corpuscular Volume 95.2 80.0 - 98.0 fL [facility] Mean Corpuscular Hemoglobin 30.0 27.0 - 33.0 pg [facility] Mean Corpuscular HGB Conc 31.5 31.0 - 36.0 g/dl [facility] Red Cell Distribution Width 16.9(H) 11.0 - 16.0 % [facility] Platelet Count 95(L) 160 - 400 X10*3/uL [facility] Mean Platelet Volume 12.7(H) 9.4 - 12.4 fL [facility] Neutrophils Percent Auto 52.8 45 - 73 % [facility] Imm Gran Pct Auto 3.9(H) 0.0 - 0.4 % [facility] Lymphocytes Percent Auto 2.2(L) 20 - 40 % [facility] Monocytes Percent Auto 40.4(H) 2 - 11 % [facility] Eosinophils Percent Auto 0.6 0 - 4 % [facility] Basophils Percent Auto 0.1 0 - 2 % [facility] NRBC Pct Auto 0.0 0.0 - 0.2 /100WBC [facility] Neutrophils Absolute Auto 8.2 2.0 - 8.3 x10*3/uL [facility] Imm Gran Abs Auto 0.60(H) 0.00 - 0.03 X10*3/uL [facility] Lymphocytes Absolute Auto 0.3(L) 1.2 - 4.9 X10*3/uL [facility] Monocytes Absolute Auto 6.2(H) 0.1 - 1.2 X10*3/uL [facility] Eosinophils Absolute Auto 0.1 0.0 - 0.4 X10*3/uL [facility] Basophils Absolute Auto 0.0 0.0 - 0.2 X10*3/uL [facility] NRBC Abs Auto 0.000 0.0 - 0.012 X10*3/uL [facility] 12/07/2022 4:10 PM EDT 12/07/2022 4:13 PM EDT us [facility] External Provider LAB BLO OD ORDERABLES Edited Result - Final [facility] [address] [place] [phone] * Hematoxylin and Eosin Stain (11/11/2022 1:27 PM EDT) 11/11/2022 1:27 PM EDT 11/11/2022 2:00 PM EDT Narrative [facility] - 11/15/2022 10:21 AM EDT ----- ------- Name: Jony Murillo Age/Sex: 62/M : 1960 Unit#: [id number] Attend Dr: Melissa Handy MD Re11/11/22 [place] [facility] [place] Disch: ----- ------- SPEC : [id number] RECD: 11/11/22-1399 STATUS: MARIA D LARKIN NUM: [id number] [place]: 11/11/22-[address]: Melissa Handy MD ENTERED: 11/11/22-1416 SP TYPE: Surgical OTHR DR: Ruchi Alexandre ORDERED: HE Stain/2, Gross Micro L4 COMMENTS: One of the tissue fragments is extremely tiny and may be difficult to identify during processing and may fail to survive processing. Diagnosis Esophagus, stricture, biopsy: - Cardiac-type mucosa with moderate chronic active inflammation; no intestinal metaplasia seen. - No squamous epithelium seen. Clinical History Dysphagia, esophageal stricture Microscopic Description Microscopic sections reviewed. Material Received Esophageal stricture bx's Gross Description Received in formalin labeled Esophageal stricture are four glistening, semitranslucent, soft, hyperemic and congested, fagan and fagan-pink, irregular tissue fragments, ranging from minute - 0.3 cm. in greatest dimension, which are submitted in toto in a single cassette labeled A. KG Copies To: Melissa Handy MD [address] [place] [address] [place] [address] Ruchi Alexandre [address] [place] [address] CONTINUED ON NEXT PAGE ----- ------- Name: Jony Murillo Age/Sex: 62/M : 1960 Unit#: [id number] Attend Dr: Melissa Handy MD Re11/11/22 Status: [facility] Location: [facility] Disch: ----- ------- SPEC : [id number] RECD: 11/11/22 STATUS: MARIA D LARKIN NUM: [id number] [place]OR[place]: 11/11/22-[address] [facility] [address]: Melissa Handy MD ENTERED: 11/11/22-141 SP TYPE: Surgical OTHR DR: Ruchi Alexandre [facility] ORDERED: HE Stain/2, Gross Micro L4 COMMENTS: One of the tissue fragments is extremely tiny and may be difficult to identify during processing and may fail to survive processing. ----- ------- Signed (signature on file) Lloyd Cook MD 11/15/22 1021 ----- ------- END OF REPORT [facility] External Provider LAB BLO OD ORDERABLES Final Result [facility] [address] [place] [address] [phone] * (ABNORMAL) Basic Metabolic Panel, Fasting (10/07/2022 10:31 AM EDT) Sodium 142 135 - 145 mmol/L [facility] Potassium 3.7 3.3 - 5.1 mmol/L [facility] Chloride 111(H) 96 - 108 mmol/L [facility] Carbon Dioxide 24 22 - 29 mmol/L [facility] Anion Gap 11(L) 12 - 20 [facility] Urea Nitrogen (BUN) 6(L) 9 - 16 mg/dL [facility] Creatinine, Serum 0.86 0.5 - 1.4 mg/dL [facility] Creatinine Clr Calc Pharmacy 89.5 [facility] Comment:eGFR (calculated fro m the MDRD study equation) and eCrCl(calculated from the Cockcroft-Gault equation) are based ondifferent parameters and may not yield comparable results.If eCrCl result is absurd, please check patient'sheight/weight. Estimated Glomerular Filt Rate >60 [facility] Comment:NOTE: For -Am erican individuals, multiply the result by 1.210.Chronic Kidney Disease: Estimated GFR < 60 mL/min/1.79m2Elblwk Kidney Disease: Estimated GFR < 15 mL/min/1.73m2 Glucose Fasting 104(H) 60 - 99 mg/dL [facility] Comment:A fasting glucose fr om 100-125 mg/dl is considered impaired(pre-diabetes). Calcium 8.0(L) 8.4 - 10.2 mg/dL [facility] 10/07/2022 10:3 1 AM EDT 10/07/2022 10:34 AM EDT us [facility] External Provider LAB BLO OD ORDERABLES Final Result [facility] [address] [place] [phone] * (ABNORMAL) CBC (10/07/2022 10:31 AM EDT) White Blood Count 4.4(L) 4.8 - 10.8 X10*3/uL [facility] Red Blood Count 3.33(L) 4.60 - 5.80 X10*6/uL [facility] Hemoglobin 10.1(L) 14.0 - 18.0 g/dl [facility] Hematocrit 32.4(L) 42.0 - 52.0 % [facility] Mean Corpuscular Volume 97.3 80.0 - 98.0 fL [facility] Mean Corpuscular Hemoglobin 30.3 27.0 - 33.0 pg [facility] Mean Corpuscular HGB Conc 31.2 31.0 - 36.0 g/dl [facility] Red Cell Distribution Width 17.2(H) 11.0 - 16.0 % [facility] Platelet Count 105(L) 160 - 400 X10*3/uL [facility] Mean Platelet Volume 12.4 9.4 - 12.4 fL [facility] NRBC Pct Auto 0.0 0.0 - 0.2 /100WBC [facility] NRBC Abs Auto 0.000 0.0 - 0.012 X10*3/uL [facility] 10/07/2022 10:3 1 AM EDT 10/07/2022 10:34 AM EDT us [facility] External Provider LAB BLO OD ORDERABLES Final Result [facility] [address] [place] [address] [phone] * Hematoxylin and Eosin Stain (09/26/2022 3:14 PM EDT) 09/26/2022 3:14 PM EDT 09/27/2022 6:57 AM EDT Narrative [facility] - 09/29/2022 11:09 AM EDT ----- ------- Name: Jony Murillo Age/Sex: 62/M : 1960 Unit#: [id number] Attend Dr: Melissa Handy MD Re09/26/22 [place] [facility] [place] Disch: ----- ------- SPEC : [id number] RECD: 09/27/22 STATUS: MARIA D LARKIN NUM: [id number] FLOR[place]: 09/26/[address] [facility] [address]: Melissa Handy MD ENTERED: 09/27/22 SP TYPE: Surgical OTHR DR: Ruchi Alexandre ORDERED: HE Stain/2, Gross Micro L4 COMMENTS: Two of the tissue fragments are extremely tiny and may be difficult to identify during processing and may fail to survive processing. Diagnosis Esophagus, stricture, biopsy: - Cardiac-type mucosa with chronic active erosive inflammation; no intestinal metaplasia or dysplasia seen. - No squamous epithelium seen. Clinical History Pre-Op Dx: Dysphagia, esophageal stricture Post-Op Dx: Hiatal hernia, esophagitis, esophageal stricture Microscopic Description Microscopic sections reviewed. Material Received Esophageal stricture Gross Description Received in formalin labeled Esophageal stricture are five glistening, semitranslucent, soft, hyperemic and congested, fagan and fagan-pink, irregular tissue fragments, ranging from minute - 0.4 cm. in greatest dimension, which are submitted in toto in a single cassette labeled A. KG Copies To: Melissa Handy MD [address] [place] [address] [place] [address] Ruchi Alexandre [address] [place] [address] CONTINUED ON NEXT PAGE ----- ------- Name: Jony Murillo Age/Sex: 62/M : 1960 Unit#: [id number] Attend Dr: Melissa Handy MD Re09/26/22 [place] [facility] [place] [facility] Disch: ----- ------- SPEC : [id number] RECD: 09/27/22 STATUS: MARIA D LARKIN NUM: [id number] [place]: 09/26/[address] [facility] [address]: Melissa Handy MD ENTERED: 09/27/22 SP TYPE: Surgical OTHR DR: Ruchi Alexandre NURSE'S AIDES TEACHER ORDERED: HE Stain/2, Gross Micro L4 COMMENTS: Two of the tissue fragments are extremely tiny and may be difficult to identify during processing and may fail to survive processing. ----- ------- Signed (signature on file) Lloyd Cook MD 09/29/22 1109 ----- ------- END OF REPORT [facility] External Provider LAB BLO OD ORDERABLES Final Result [facility] [address] [place] [phone] * Gross and Microscopic Level 4 (08/19/2022 1:41 PM EDT) 08/19/2022 1:41 PM EDT 08/19/2022 2:20 PM EDT Narrative [facility] - 09/12/2022 12:16 PM EDT ----- ------- Name: Jony Murillo Age/Sex: 62/M : 1960 Unit#: [id number] Attend Dr: Melissa Handy MD Re08/19/22 Status: [facility] Location: [facility] Disch: ----- ------- SPEC : [id number] RECD: 08/19/22 STATUS: MARIA D LARKIN NUM: [id number] FLOR[place]: 08/19/22-[address]: Melissa Handy MD ENTERED: 08/19/22-1442 SP TYPE: Surgical OTHR DR: ORDERED: Gross Micro L4, Cytokeratin, IHC, Add. immunos/2, Specials Gr. 1, PASF COMMENTS: Block A sent to [facility] for HSV CMV IHC's on 08/23/22. One of the tissue fragments is extremely tiny and may be difficult to identify during processing and may fail to survive processing. Addendum Addendum 1 Entered: 09/12/22 Immunostains for HSV and CMV are non-reactive. No change is made to the diagnosis. Technical services for immunohistochemistry studies performed at [facility] Yovanny [place]yl[place]; [facility] #[id number] Addendum Signed (signature on file) Lloyd Cook MD 09/12/221215 ----- ------- Diagnosis Esophagus, stricture, biopsy: - Cardiac-type mucosa with ulceration and regenerative changes; no intestinal metaplasia seen. - Chronic active erosive esophagitis. COMMENT: HSV and CMV immunostains are underway - results will be addended. Clinical History Pre-Op Dx: Dysphagia, esophageal stricture Post-Op Dx: GERD, esophageal stricture, hiatal hernia Microscopic Description Microscopic sections reviewed. Pancytokeratin immunostain highlights only [place] benign epithelium; no fungi are seen, supported by PAS stain. Material Received Esophageal stricture bx's CONTINUED ON NEXT PAGE ----- ------- Name: Jony Murillo Age/Sex: 62/M : 1960 Unit#: [id number] Attend Dr: Melissa Handy MD Re08/19/22 [place] [facility] [place] Disch: ----- ------- SPEC : [id number] RECD: 08/19/22-1419 STATUS: MARIA D LARKIN NUM: [id number] [place]: 08/19/22-[address] [facility] [address]: Melissa Handy MD ENTERED: 08/19/22 SP TYPE: Surgical OTHR DR: ORDERED: Gross Micro L4, Cytokeratin, IHC, Add. /2, Specials Gr. 1, PASF COMMENTS: Block A sent to [facility] for HSV CMV IHC's on 08/23/22. One of the tissue fragments is extremely tiny and may be difficult to identify during processing and may fail to survive processing. Gross Description Received in formalin labeled Esophageal stricture bx's are three glistening, semitranslucent, soft, fagan-pink, irregular tissue fragments, ranging from less than 0.1 to 0.3 cm. in greatest dimension, which are submitted in toto in a single cassette labeled A. CEDS Special studies ordered and performed: immunostain pancytokeratin; PAS stain ----- ------- Signed (signature on file) Lloyd Cook MD 08/29/22 1146 ----- ------- END OF REPORT [facility] External Provider LAB [facility] ORDERABLES Final Result [facility] [address] [place] [phone] documented in this encounter Visit Diagnoses Not on filedocumented in this encounter Care Teams Aesthetics Instructor Relationship Specialty Start Date End Date Ruchi Alexandre FNP [address] [place] [address] PCP - General Family Medicine 07/19/22 Dr. Chirag Cordova Pulmonary Disease 05/26/24 documented as of this encounter
--- OUTSIDE RECORDS SUMMARY | 2025-01-20 17:52 | XMS_ITS | Encounter Summary ---
Author Organization [employer] Address [address] [facility] [address]t [place] [address] Care Team Providers Care Accounts Payable Processor Name Role Phone Ruchi Alexandre Primary Care Provider [phone] Reason for Visit * Reason Onset Date Comments Appointment Request 01/16/2025 Encounter Details Date Type Department Care Team ([facility] Contact Info) Description 01/16/2025 Telephone [facility] MED & PEDS [address] [place], [place] [phone] Ruchi Alexandre FNP [address] [place], [place] [phone] Appointment Request Social History Tobacco Use Types Packs/Day Years [...] encounter Miscellaneous Notes * Telephone Encounter - PARMJIT Foss - 01/18/2025 3:52 PM EDT Outgoing telephone call placed to patient phone number on 01/17/2025 around 6 PM. No answer, left voicemail. Did coordinate earlier in the day with RN at [facility]. Nurse reported that patient beenin contact with their office regarding scheduling appointment. Referral ADRIANA placed in case needed due to insurance. If patient calls back, please notify [facility] team nurses so that patient can be transfe rred to PCP if available. Thank you. * Telephone Encounter - PARMJIT Foss - 01/17/2025 12:45 PM EDT I called pt x 3 for the appointment this morning. No answer. I called and left a voicemail with [facility] regarding scheduling pt for soonest available appointment. * Telephone Encounter - Cynthia Price RN - 01/17/2025 9:31 AM EDT TC to pt to schedule telehealth today to review diagnosis and recent ER visit. Advised pcp would like to schedule televisit today. Pt verbally agreed to telehealth at 11:15 AM today and was scheduled. Pt verbalized understanding and agreement with plan. [facility] [place] obtained and submitted for scanning. * Telephone Encounter - PARMJIT Foss - 01/17/2025 8:25 AM EDT Please reach out and schedule him for an appoint TODAY. I blocked the 11:15am sick on site slot forhim. We can do televisit. Thanks * Telephone Encounter - Pat Vasquez RN - 01/16/2025 3:55 PM EDT VM left on writersphone requesting PCP to reach out to pt as pt had some testing done and was informed he has cancer . Please review and advise. documented in this encounter Plan of Treatment Not on file documented as of this encounter Visit Diagnoses Not on filedocumented in this encounter Additional Health Concerns Assessment Noted Time PHQ-9 Depression Total Score: 0 02/16/20 3:53 PM EDT documented as of this encounter Care Teams Accounts Payable Processor Relationship Specialty Start Date End Date Ruchi Alexandre FNP [address] [place] [phone] PCP - General Family Medicine 07/19/22 Dr. Chirag Cordova Pulmonary Disease 05/26/24 documented as of this encounter
--- OUTSIDE RECORDS SUMMARY | 2025-01-20 17:52 | XMS_ITS | Encounter Summary ---
Author Organization [employer] Address [address] [facility] [address] [place] [address] Care Team Providers Care Realty Specialist Name Role Phone Ruchi Alexandre INSURANCE BROKER Primary Care Provider [phone] Encounter Details Date Type Department Care Team (Latest Contact Info) Description 01/17/2025 Travel Social History Tobacco Use Types Packs/Day Years [...] documented as of this encounter Care Teams Realty Specialist Relationship Specialty Start Date End Date Ruchi Alexandre FNP [address] [place] [phone] PCP - General Family Medicine 07/19/22 Dr. Chirag Cordova Pulmonary Disease 05/26/24 documented as of this encounter
--- OUTSIDE RECORDS SUMMARY | 2025-01-20 17:52 | XMS_ITS | Encounter Summary ---
Author Organization [employer] Address [address] [facility] 7[address] [place] [address] Care Team Providers Care Electric Freight Car Operator Name Role Phone Ruchi Alexandre Primary Care Provider [phone] Reason for Visit * Reason Onset Date Comments No Show 01/17/2025 Encounter Details Date Type Department Care Team ([facility] Contact Info) Description 01/17/2025 Telephone [facility] CHC MED & PEDS [address] [place], [place] [phone] Ruchi Alexandre FNP [address] [place], [place] [phone] No Show Social History Tobacco Use Types Packs/Day Years [...] encounter Miscellaneous Notes * Telephone Encounter - Prudence Vasquez - 01/17/2025 2:13 PM EDT No show 01/17/25 documented in this encounter Plan of Treatment Not on file documented as of this encounter Visit Diagnoses Not on filedocumented in this encounter Additional Health Concerns Assessment Noted Time PHQ-9 Depression Total Score: 0 02/16/20 24 3:53 PM EDT documented as of this encounter Care Teams Electric Freight Car Operator Relationship Specialty Start Date End Date Ruchi Alexandre FNP [address] [place] [phone] PCP - General Family Medicine 07/19/22 Dr. Chirag Cordova Pulmonary Disease 05/26/24 documented as of this encounter
== END 2025-01-20 16:26 | disposition home or self-care (01) ==
LOC: HO.HPS 15:57
PROVIDERS: PCP Registered Nurse; Visit Provider Internal Medicine
DX: J44.9 Chronic obstructive pulmonary disease, unspecified (principal); Z99.81 Dependence on supplemental oxygen; R91.8 Other nonspecific abnormal finding of lung field; F41.9 Anxiety disorder, unspecified; S22.49XA Multiple fractures of ribs, unspecified side, initial encounter for closed fracture
CPT/HCPCS: 99214

== ENCOUNTER → 2025-01-20 15:57 | Outpatient (BNVA) | payer MEDICARE, MEDICAID, SELFPAY | PROVIDERS: PCP Registered Nurse; Visit Provider Internal Medicine | DX: J44.9 Chronic obstructive pulmonary disease, unspecified (principal); Z99.81 Dependence on supplemental oxygen; R91.8 Other nonspecific abnormal finding of lung field; F41.9 Anxiety disorder, unspecified; S22.42XA Multiple fractures of ribs, left side, initial encounter for closed fracture; Z87.891 Personal history of nicotine dependence | CPT/HCPCS: 99212 ==

== ENCOUNTER → 2025-01-23 10:00 | Outpatient (BNV) | payer MEDICARE, MEDICAID, SELFPAY | PROVIDERS: PCP Registered Nurse; Visit Provider Internal Medicine | DX: S22.42XA Multiple fractures of ribs, left side, initial encounter for closed fracture (principal); G95.9 Disease of spinal cord, unspecified | CPT/HCPCS: 99204; G2211 ==

== ENCOUNTER → 2025-01-30 10:58 | Outpatient (REF) | payer MEDICARE, MEDICAID, SELFPAY ==
--- NOTE | ~2025-01-30 | NM_ITS ---
EXAMINATION: NM BONE SCAN OF THE WHOLE BODY CLINICAL INFORMATION: Question lytic lesions in spine COMPARISON: CT chest 01/19/2025. CT lumbar spine 01/15/2025 TECHNIQUE: Multiple gamma scintillation camera images of the whole body were performed. 2 hours and 45 minutes following the intravenous administration of 27 mCi Tc-99m MDP. FINDINGS: In the head, no abnormal isotope activity seen. In the thoracic cage and upper extremities, there is mild focal increased activity seen along right anterior costochondral junction, fourth, ninth, 10th and 11th ribs and mid right fifth and posterior eighth, ninth and 10th ribs. Also noted is abnormal focal activity in the left lateral fourth, seventh and anterior costal chondral junctions fourth, fifth, seventh and minimal left eighth ribs. There is mild increased activity seen in the right lower humerus probable metastatic disease. Mild diffuse activity in the left proximal humerus and the glenohumeral joint is likely DJD or fracture. In the spine, focal increased activity seen in T11 vertebra which corresponds to pathological fracture. Also seen is increased activity in bilateral T8 and mild activity right T9 and left T10 vertebrae. Mild focal activity is also seen in left T12 In the pelvis, no abnormal activity seen in the pelvis. In the lower extremities, nonspecific focal activity seen in the right superior femoral head and right posterior ischium, left lower femoral neck and right mid femur. Mild focal activity seen in left fifth MTP joint, left distal first toe, right second MTP joint, right medial ankle likely DJD. Similar faint increased activity seen in the left medial knee joint and lateral right knee joint. The urinary bladder and faint visualization of both kidneys are noted. NM/NM bone scan whole body IMPRESSION: There are multiple focal activities in bilateral ribs and anterior costochondral junctions corresponding to the fractures visualized on the CT chest exam. Increased activity seen in the lower thoracic and lumbar spine correspond to lytic lesion seen on CT lumbar spine and are metastatic disease. Focal activity seen in the pelvis likely metastatic disease as well. Mild increased activity seen in bilateral foot and medial the likely related to DJD. Electronically signed by: Kishore Chopra MD 01/30/2025 04:10 PM EDT
--- OUTSIDE RECORDS SUMMARY | 2025-01-30 12:33 | XMS_ITS | Encounter Summary ---
Author Organization [employer] Address [address] [place] [address] [address] [place] [address] Care Team Providers Care Drawing Machine Operator Name Role Phone Ruchi Alexandre PARMJIT Primary Care Provider [phone] Reason for Referral * Imaging (Urgent) - Closed Specialty Diagnoses / Procedures Referred By Melva de los santos Referred To Contact Radiology Diagnoses Thrombocytopenia (CMS/HCC) Hepatic fibrosis Procedures US Abdomen Comp w elastography Isabella Chiu MD [address] [place] [address] Phone: tel: fax: [address] Phone: tel: fax: Referral ID Status Reason Start Date Expiration Date Visits Re quested Visits Authorized [id number] Closed 01/20/2023 01/20/2024 1 1 Encounter Details Date Type Department Care Team (Late st Contact Info) Description 01/20/2023 Orders Only [facility] MEDICINE [address] [place], [place] [phone] Isabella Chiu MD [address], [place] [phone] Thrombocytopenia (CMS/HCC) (Primary Dx); Hepatic fibrosis Social [...] PM EDT) Hepatitis C Antibody Nonreactive Nonreactive [facility] Comment:Antibodies to HCV no t detected; does not exclude early acuteHCV infection. Blood Venous blood specimen / Unknown 02/03/2023 3:24 PM EDT 02/03/2023 4:05 PM EDT Isabella Chiu MD LAB BLOOD ORDERABLES Final Resul t Performing Organization Address [facility] [[email or web address]] de Phone Number [facility] [address] [place] [phone] * Hepatitis B Surface Antibody, Qualitative (02/03/2023 3:24 PM EDT) ~Hepatitis B Surface Antibody NONREACTIVE Nonreactive [facility] Comment:Nonreactive: < 8.00 mIU/mL Blood Venous blood specimen / Unknown 02/03/2023 3:24 PM EDT 02/03/2023 4:05 PM EDT Isabella Chiu MD LAB BLOOD ORDERABLES Final Resul t Performing Organization Address [facility] [[email or web address]] de Phone Number [facility] [address] [place] [phone] * Hepatitis B Core Antibody, Total (02/03/2023 3:24 PM EDT) Hepatitis B Core Antibody Nonreactive Nonreactive [facility] Blood Venous blood specimen / Unknown 02/03/2023 3:24 PM EDT 02/03/2023 4:05 PM EDT Isabella Chiu MD LAB BLOOD ORDERABLES Final Resul t Performing Organization Address [facility] [[email or web address]] de Phone Number [facility] [address] [place] [phone] * Hepatitis A Antibody IgG (02/03/2023 3:24 PM EDT) Hepatitis A Antibody IgG Nonreactive Nonreactive [facility] Blood Venous blood specimen / Unknown 02/03/2023 3:24 PM EDT 02/03/2023 4:05 PM EDT us Isabella Chiu MD LAB BLOOD ORDERABLES Final Resul t [facility] [address] [place] [phone] * (ABNORMAL) Liver Fibrosis, FibroTest-ActiTest Panel (02/03/2023 3:24 PM EDT) Liver Fibrosis Score 0.49 [facility] Liver Fibrosis Stage F2 [facility] Liver Fibrosis Interpretation SEE NOTE [facility] Comment:moderate fibrosisFib ro Test Score [...] (severe fibrosis) Nec Inflam Act Score 0.02 [facility] Nec Inflam Act Grade A0 [facility] Nec Inflam Act Interpretation SEE NOTE [facility] Comment:no activityActiTest Score (a) Metavir Score a>=0 and a<=0.17 : A0 (no activity)a>0.17 and a<=0.29 : A0-A1 (no activity)a>0.29 and a<=0.36 : A1 (minimal activity)a>0.36 and a<=0.52 : A1-A2 (minimal activity)a>0.52 and a<=0.60 : A2 (significant activity)a>0.60 and a<=0.62 : A2-A3 (significant activity)a>0.62 and a<=1.00 : A3 (severe activity) GAE-Msgcw-9-Macroglo bulin 143 106 - 279 mg/dL [facility] FIB-Haptoglobin 14(A) 43 - 212 mg/dL [facility] FIB-Apolipoprotein A1 148 94 - 176 mg/dL [facility] FIB-Total Bilirubin 0.8 0.2 - 1.2 mg/dL [facility] FIB-GGT 19 3 - 70 U/L [facility] FIB-ALT 7(A) 9 - 46 U/L [facility] Reference ID [id number] [facility] Footnote SEE NOTE [facility] Comment: The reliability of results [...] and C.The performance characteristics have been determined by[employer] [facility]. Ithas not been cleared or approved by the U.S. Food and DrugAdministration. Performance characteristics refer to theanalytical performance of the test.[employer], the associated logo, [employer] and all associated [employer] are theregistered trademarks of [employer]. All third partymarks - (R) and (TM) - are the property of their respectiveowners. (C) [id number] [employer]. Allrights reserved.THIS TEST WAS PERFORMED AT:[employer] [id number] [place] [phone] CERVANTES MD,PHD,EUGENE Blood 02/03/2023 3:24 PM EDT 02/03/2023 4:05 PM EDT us Isabella Chiu MD LAB BLOOD ORDERABLES Final Resul t [facility] [address] [place] [phone] * US Abdomen Comp w elastography (01/25/2023 9:55 AM EDT) Anatomical Region Laterality Modality Abdomen Ultrasound 01/25/2023 9:55 AM EDT Narrative 01/26/2023 2:33 PM EDT [place] [address] Ultrasound Report Signed Patient: Jony Murillo MR#: [id number] : 1960 Acct:[id number] Age/Sex: 62 / M ADM Date: 01/25/23 Loc: HO.US Attending Dr: Isabella Chiu MD Ordering Physician: Isabella Chiu MD Date of Service: 01/25/23 Procedure(s): US abdomen comp w elastography Accession Number(s): [id number] cc: Isabella Chiu MD EXAMINATION: US COMPLETE [...] in OV> 01/26/23 1430 DD/ 0955 TD/TT: [employer] Screen Watcher: PABLO Procedure Note Donotuseinterpreter, Image - 01/26/2023 [place] [address] Ultrasound Report Signed Patient: Betsy Murillo#: [id number] : 8Acct:[id number] Age/Sex: 62 / MADM Date: 01/25/23 Loc: HO.US Attending Dr: Isabella Chiu MD Ordering Physician: Isabella Chiu MD Date of Service: 01/25/23 Procedure(s): US abdomen comp w elastography Accession Number(s): [id number] cc: Isabella Chiu MD EXAMINATION: US COMPLETE [...] in OV> 01/26/23 1430 DD/ 0955 TD/TT: [employer] Screen Watcher: PABLO us Isabella Chiu MD IMG US PROCEDURES Final Result documented in this encounter Visit Diagnoses Diagnosis Thrombocytopenia (CMS/HCC)- Primary Unspecified thrombocytopenia Hepatic fibrosis Cirrhosis of liver without mention of alcohol documented in this encounter Additional Health Concerns Assessment Noted Time PHQ-9 Depression Total Score: 5 11/04/19 23 1:33 PM EDT documented as of this encounter Care Teams Drawing Machine Operator Relationship Specialty Start Date End Date Ruchi Alexandre FNP [address] [place] [phone] PCP - General Family Medicine 07/19/22 Dr. Chirag Cordova Pulmonary Disease 05/26/24 documented as of this encounter
--- OUTSIDE RECORDS SUMMARY | 2025-01-30 12:33 | XMS_ITS | Clinical Summary ---
Author Organization [employer] Address [address] [facility] 7t [place] [address] Care Team Providers Care Embedded Software Programmer Name Role Phone Ruchi Alexandre LEAD SOFTWARE TESTER Primary Care Provider [phone] Allergies Active Allergy Reactions Criticality Noted Date [...] 200-62.5-25 MCG/ACT aerosol powder 01/03/20 25 Active oxyCODONE-acet aminophen (Percocet) 5-325 MG tabletIndicati [...] 3 days. 3 tablet 01/13/20 25 025 traMADol (Ultram) 50 MG tabletIndicati ons:Bone lesion Take 1 tablet (50 mg) by mouth every 12 (twelve) hours if needed for severe pain for up to 7 days. 14 tablet 01/21/20 25 025 Active Problems Problem Noted Date Diagnosed Date Current chronic use of systemic steroids 025 Overview (01/05/2025): Chronic use of prednisone 5-10 [...] - May 2023: identified during CEE at [facility] Mood disorder 08/09/2023 Assessment & Plan (08/09/2023 8:22 AM EDT): Followed by Dr. Brendan Ruvalcaba Continues on the following medications through psych: Invega 6mg in the morning, and 3mg in the afternoon Clonazepam 1mg BID Lamotrigene 200mg BID Adderall 1mg daily Closed head injury 08/08/2023 Esophageal stricture 08/08/2023 Hypoxia 08/08/2023 O2 dependent 08/08/2023 Overview (05/26/2024): [place] [facility] [place] Dr. Cordova Apr 2024: Rest: 2.5-3 L/min Activity outside of home: 4L/min Former cigarette smoker 08/08/2023 Healthcare maintenance 01/26/2023 Overview (01/05/2025): Colonoscopy: normal (04/16/18, [place], [facility], [facility]). Due 2027 Opto: CEE May 2023 w/ [facility]. No retinopathy. DXA: normal bone density 12/04/24 [...] ASHWIN Villatoro. HFCCA Feb 2020 Established with [facility] Cards - Dr. Joseph Plan: annual monitoring [...] 10/18/2019 Cirrhosis 05/24/2019 Overview (01/05/2025): Following with [facility] [place] - Dr. Handy Vaccines: Hep A [...] Overview (01/05/2025): Followed by Dr. Cordova at [facility] Advanced COPD Last exacerbation: 12/07/22, hospitalized [...] Department Care Team Description 01/20/2025 Orders Only [facility] [address] [place] [address] Ruchi Alexandre FNP Bone lesion (Primary Dx) 01/17/2025 Telephone [facility] [address] [place] [address] Ruchi Alexandre FNP No Show 01/17/2025 Travel 01/16/2025 Telephone [facility] [address] [place] [address] Ruchi Alexandre FNP Appointment Request 01/15/2025 Orders Only [facility] External Provider, [facility] 01/14/2025 Orders Only GENERIC EXTERNAL DATA DEPARTMENT Provider, Generic External Data 01/12/2025 Orders Only [facility] [address] [place] [address] Ruchi Alexandre FNP History of fracture; Traumatic ecchymosis of left foot, initial encounter 01/08/2025 Telephone [facility] [address] [place] [address] Ruchi Alexandre FNP 01/03/2025 3:30 PM EDT Office Visit [facility] [address] [place] [address] Ruchi Alexandre FNP Traumatic ecchymosis of left foot, initial encounter (Primary Dx); History of fracture; Current chronic use of systemic steroids; Healthcare maintenance; Cirrhosis of liver without ascites, unspecified hepatic cirrhosis type (CMS/HCC); Chronic obstructive pulmonary disease, unspecified COPD type (CMS/HCC); History of fall 01/03/2025 Travel 12/08/2024 Results Follow-Up [facility] [address] [place] [address] Ruchi Alexandre FNP BD DEXA Axial 11/27/[address] [facility] [address] [facility] [place] [address] Ruchi Alexandre FNP Referral 11/26/2024 Orders Only [facility] External Provider, [facility] from Last 3 Months Immunizations Immunization [...] Tdap) 10/21/2020 10/21/2010 COVID-19 Vaccine ( season) 2025 05/20/2024, 05/09/2023, 03/28/2022, Additional history exists Influenza [...] AM EDT Narrative 01/15/2025 3:56 AM EDT [address] [address] [address] Scan Report Signed Patient: Jony Murillo MR#: [id number] 017 : 1960 Acct:[id number] Age/Sex: 64 / M ADM Date: 01/15/25 Loc: HO.ED Attending Dr: Ordering Physician: Montserrat Muhammad Date of Service: 01/15/25 Procedure(s): CT lumbar spine wo IV con Accession Number(s): [id number] cc: Montserrat Muhammad; Ruchi Alexandre [facility] Report Number: [id number]: Total DLP = 475.00 mGy-cm CLINICAL HISTORY: pain compression fx? CT lumbar spine without contrast Comparison: CT/SR - CT CHEST WO IV CON - 06/11/24 17:[address]/REG/AK/SR - ABD PELV W PO CON ONLY [id number] - 10/04/18 23:44 EDT Findings: There are [...] in OV> 01/15/256 DD/ 3 TD/TT: 01/15/25353 Dinker: Procedure Note Donotuseinterpreter, Image - 01/15/[address] [place] [address] [address] Scan Report Signed Patient: Betsy Murillo#: [id number] [id number] : 8Acct:[id number] Age/Sex: 64 / MADM Date: 01/15/25 Loc: HO.ED Attending Dr: Ordering Physician: Montserrat Muhammad Date of Service: 01/15/25 Procedure(s): CT lumbar spine wo IV con Accession Number(s): [id number] cc: Montserrat Muhammad; Ruchi Alexandre LEAD SOFTWARE TESTER Report Number: [id number]: Total DLP = 475.00 mGy-cm CLINICAL HISTORY: pain compression fx? CT lumbar spine without contrast Comparison: CT/SR - CT CHEST WO IV CON - 06/11/24 17:[address]/REG/AK/SR - ABD PELV W PO CON ONLY [id number] - 10/04/18 23:44 EDT Findings: There are [...] 01/15/25 0356 DD/ 0354 TD/TT: 01/15/25 0354 Dinker: [facility] External Provider IMG CT PROCEDURES Final Result * Slide Review (01/14/2025 9:59 PM EDT) Slide Review VERIFIED [facility] 01/14/2025 9:59 PM EDT 01/14/2025 10:04 PM EDT Generic External Data Provider LAB BLOOD ORDERAB LES Final Result [facility] [address] [place] [phone] * High Sensitivity Troponin I (01/14/2025 9:59 PM EDT) Pathologist [facility] TROPONIN I HIGH SENSITIVITY <2.7 <3.5 - 35.0 ng/L [facility] Comment:The [place] high sens itivity Troponin-I results should beused in conjunction with other diagnostic information suchas ECG, clinical observations and information, and patientsymptoms to aid in the diagnosis of [place]. 01/14/2025 9:59 PM EDT 01/14/2025 10:04 PM EDT us Generic External Data Provider LAB BLOOD ORDERAB LES Final Result [facility] [address] [place] [phone] * SARS-CoV-2 RNA, Influenza A/B, and RSV RNA, Ql NAAT (01/14/2025 9:59 PM EDT) Pathologist [facility] Influenza A PCR NEGATIVE Negative [facility] Influenza B PCR NEGATIVE Negative [facility] Resp Syncy Virus RNA Qual PCR NEGATIVE Negative [facility] SARS COV2 PCR NEGATIVE Negative [facility] Comment:All test results mus [...] use by authorized laboratories.Testing performed on the [employer] GeneXpert utilizingreal-time RT-PCR.All SARS CoV2 and positive influenza A/B results arereported to [facility]. 01/14/2025 9:59 PM EDT 01/14/2025 10:04 PM EDT us Generic External Data Provider LAB MICROBIOLOGY - GENERAL ORDERABLES Final Result [facility] [address] [place], [place] [phone] * (ABNORMAL) CBC auto differential (01/14/2025 9:59 PM EDT) White Blood Count 5.7 4.8 - 10.8 X10*3/uL [facility] Red Blood Count 3.31(L) 4.60 - 5.80 X10*6/uL [facility] Hemoglobin 11.0(L) 14.0 - 18.0 g/dl [facility] Hematocrit 33.5(L) 42.0 - 52.0 % [facility] Mean Corpuscular Volume 101.2(H) 80.0 - 98.0 fL [facility] Mean Corpuscular Hemoglobin 33.2(H) 27.0 - 33.0 pg [facility] Mean Corpuscular HGB Conc 32.8 31.0 - 36.0 g/dl [facility] Red Cell Distribution Width 17.5(H) 11.0 - 16.0 % [facility] Platelet Count 63(L) 160 - 400 X10*3/uL [facility] Neutrophils Percent Auto 26.2(L) 45 - 73 % [facility] Imm Gran Pct Auto 3.9(H) 0.0 - 0.4 % [facility] Lymphocytes Percent Auto 11.8(L) 20 - 40 % [facility] Monocytes Percent Auto 57.5(H) 2 - 11 % [facility] Eosinophils Percent Auto 0.4 0 - 4 % [facility] Basophils Percent Auto 0.2 0 - 2 % [facility] NRBC Pct Auto 0.0 0.0 - 0.2 /100WBC [facility] Neutrophils Absolute Auto 1.5(L) 2.0 - 8.3 x10*3/uL [facility] Imm Gran Abs Auto 0.22(H) 0.00 - 0.03 X10*3/uL [facility] Lymphocytes Absolute Auto 0.7(L) 1.2 - 4.9 X10*3/uL [facility] Monocytes Absolute Auto 3.3(H) 0.1 - 1.2 X10*3/uL [facility] Eosinophils Absolute Auto 0.0 0.0 - 0.4 X10*3/uL [facility] Basophils Absolute Auto 0.0 0.0 - 0.2 X10*3/uL [facility] NRBC Abs Auto 0.000 0.0 - 0.012 X10*3/uL [facility] 01/14/2025 9:59 PM EDT 01/14/2025 10:04 PM EDT us Generic External Data Provider LAB BLOOD ORDERAB LES Edited Result - Final Performing Organization Address City/[facility]/ZIP Co de Phone Number [facility] [address] [place] [phone] * Magnesium (01/14/2025 9:59 PM EDT) Magnesium 2.2 1.6 - 2.6 mg/dL [facility] 01/14/2025 9:59 PM EDT 01/14/2025 10:04 PM EDT us Generic External Data Provider LAB BLOOD ORDERAB LES Final Result Performing Organization Address City/[facility]/ZIP Co de Phone Number [facility] [address] [place] [phone] * Lipase (01/14/2025 9:59 PM EDT) Lipase 17 8 - 78 U/L [facility] 01/14/2025 9:59 PM EDT 01/14/2025 10:04 PM EDT us Generic External Data Provider LAB BLOOD ORDERAB LES Final Result Performing Organization Address City/[facility]/ZIP Co de Phone Number [facility] [address] [place] [phone] [phone] * (ABNORMAL) Comprehensive Metabolic Panel (01/14/2025 9:59 PM EDT) Sodium 139 135 - 145 mmol/L [facility] Potassium 3.9 3.3 - 5.1 mmol/L [facility] Chloride 103 96 - 108 mmol/L [facility] Carbon Dioxide 24 22 - 29 mmol/L [facility] Anion Gap 16 12 - 20 [facility] Urea Nitrogen (BUN) 7(L) 9 - 16 mg/dL [facility] Creatinine, Serum 0.93 0.5 - 1.4 mg/dL [facility] Creatinine Clr Calc Pharmacy 80.6 [facility] Comment:eGFR (calculated fro m the MDRD study equation) and eCrCl(calculated from the Cockcroft-Gault equation) are based ondifferent parameters and may not yield comparable results.If eCrCl result is absurd, please check patient'sheight/weight. Estimated Glomerular Filt Rate >60 [facility] Comment:Chronic Kidney Disea se: Estimated GFR < 60 mL/min/1.38n1Bielca Kidney Disease: Estimated GFR < 15 mL/min/1.73m2 Glucose 100 60 - 115 mg/dL [facility] Calcium 8.3(L) 8.4 - 10.2 mg/dL [facility] Bilirubin, Total 1.5(H) 0.0 - 1.0 mg/dL [facility] Aspartate Amino Transferase 14 5 - 37 U/L [facility] Alanine Aminotransferase 13 0 - 40 U/L [facility] Total Protein 7.5 6.5 - 8.0 g/dL [facility] Albumin Level 4.1 3.5 - 5.0 g/dL [facility] Alkaline Phosphatase 131(H) 39 - 117 U/L [facility] 01/14/2025 9:59 PM EDT 01/14/2025 10:04 PM EDT us Generic External Data Provider LAB BLOOD ORDERAB LES Final Result [facility] [address] [place] [phone] * BD DEXA Axial (12/04/2024 1:45 PM EDT) Anatomical Region Laterality Modality Body Radiographic Sherri ging 12/04/2024 1:45 PM EDT Narrative 12/04/2024 2:16 PM EDT [facility] [address] [place] [address] Mammography Report Signed Patient: Jony Murillo MR#: [id number] 017 : 1960 Acct:[id number] Age/Sex: 64 / M ADM Date: 12/04/24 Loc: HO.MAMMO Attending Dr: Ruchi PARNELL Ordering Physician: Ruchi Alexandre Results: Date of Service: 12/04/24 Follow Up: Procedure(s): XR DEXA axial skeleton Accession Number(s): [id number] cc: Ruchi Alexandre EXAMINATION: DXA BONE DENSITY AXIAL HISTORY: SENIOR LIVING USE OF STEROIDS TECHNIQUE: Guardly Dual energy absorptiometry (DEXA) of the lumbar [...] is a trademark of the [employer]'s [place] for Metabolic Bone Disease, a World Health Organization (WHO) Collaborating Center. Electronically signed by: Sadiq Troncoso MD 12/04/2024 02:14 PM EDT RP Dictated By: Sadiq Troncoso MD Signed By: <Electronically signed by Sadiq Troncoso MD in OV> 12/04/24 1414 DD/ 1345 TD/TT: 12/04/24 1405 Dinker: Procedure Note Donotuseinterpreter, Image - 12/04/[facility] [address] [place], [place] [address] Mammography Report Signed Patient: Betsy Murillo#: [id number] 017 : 8Acct:[id number] Age/Sex: 64 / MADM Date: 12/04/24 Loc: HO.MAMMO Attending Dr: Ruchi Alexandre LEAD SOFTWARE TESTER Ordering Physician: Ruchi AlexandrePResults: Date of Service: 12/04/24Follow Up: Procedure(s): XR DEXA axial skeleton Accession Number(s): [id number] cc: Ruchi Alexandre EXAMINATION: DXA BONE DENSITY AXIAL HISTORY: PIPELINES MANAGER USE OF STEROIDS TECHNIQUE: Guardly Dual energy absorptiometry (DEXA) of the lumbar [...] of the [employer] [place] for Metabolic Bone Disease, a World Health Organization (WHO) Collaborating Center. Electronically signed by: Sadiq Troncoso MD 12/04/2024 02:14 PM EDT Dictated By: Sadiq Troncoso MD Signed By: <Electronically signed by Sadiq Troncoso MD in OV> 12/04/24 1414 DD/ 1345 TD/TT: 12/04/24 1405 Dinker: us Ruchi Alexandre LEAD SOFTWARE TESTER IMG DXA PROCEDURES Final Resul t * US Abdomen Limited (11/26/2024 3:51 PM EDT) Anatomical Region Laterality Modality Abdomen Ultrasound 11/26/2024 3:51 PM EDT Narrative 11/27/2024 1:13 PM EDT [address] [address] Ultrasound Report Signed Patient: Jony Murillo MR#: [id number] 017 : 1960 Acct:[id number] Age/Sex: 64 / M ADM Date: 11/26/24 Loc: HO.US Attending Dr: Melissa Handy MD Ordering Physician: Melissa Handy MD Date of Service: 11/26/24 Procedure(s): US abdomen limited Accession Number(s): [id number] cc: Melissa Handy MD; Ruchi Alexandre LEAD SOFTWARE TESTER EXAMINATION: US ABDOMEN LIMITED HISTORY: K74.60 - [...] 11/27/24 0701 DD/ 1551 TD/TT: 11/26/24 1610 Dinker: Procedure Note Donotuseinterpreter, Image - 11/27/[address] [address] Ultrasound Report Signed Patient: Betsy Murillo#: [id number] 017 : 8Acct:[id number] Age/Sex: 64 / MADM Date: 11/26/24 Loc: HO.US Attending Dr: Melissa Handy MD Ordering Physician: Melissa Handy MD Date of Service: 11/26/24 Procedure(s): US abdomen limited Accession Number(s): [id number] cc: Melissa Handy MD; Ruchi Alexandre EXAMINATION: [...] 11/27/24 0701 DD/ 1551 TD/TT: 11/26/24 1610 Dinker: [facility] External Provider IMG US PROCEDURES Final Result * Hepatitis C Antibody with Reflex to HCV, RNA, Quantitative, Real-Time PCR (02/03/2023 3:24 PM EDT) Hepatitis C Antibody Nonreactive Nonreactive [facility] Comment:Antibodies to HCV no t detected; does not exclude early acuteHCV infection. Blood Venous blood specimen / Unknown 02/03/2023 3:24 PM EDT 02/03/2023 4:05 PM EDT Isabella Chiu MD LAB BLOOD ORDERABLES Final Resul t [facility] [address] [place] [phone] from Last 3 Months or Most Recently Relevant to Health Maintenance Insurance MEDICARE [facility] Care Teams Embedded Software Programmer Relationship Specialty Start Date End Date Ruchi Alexandre FNP [address] [place] [address] PCP - General Family Medicine 07/19/22 Dr. Chirag Cordova Pulmonary Disease 05/26/24
--- OUTSIDE RECORDS SUMMARY | 2025-01-30 12:33 | XMS_ITS | Clinical Summary ---
Author Organization 175 [facility] Address [address] [place] [address] Phone Care Team Providers Care Journey Lineman Name Role Phone Ruchi Alexandre RN Primary Care Provider Allergies No known active allergies Medications clotrimazole (LOTRIMIN) 1 % cream Apply to skin and toenails daily for 12 weeks 10/20/2023 Active Encounters Date Type Department Care Team Description 01/15/2025 2:30 PM EDT Office Visit Orthopedic Surgery [place] [phone] [phone] Jhonatan Fountain DPM Closed nondisplaced fracture of proximal phalanx of toe of left foot (Primary Dx); Follow-up exam; Closed nondisplaced fracture of fifth metatarsal bone of right foot with routine healing, subsequent encounter 11/06/2024 3:15 PM EDT Office Visit [facility] [address] [phone] Jhonatan Fountain DPM Closed nondisplaced fracture of [...] PM EDT Office Visit [facility] [place] [address] [phone] Jhonatan Fountain, DPGlendy [address] [phone] Health Maintenance Due Date Last Done Comments [...] Depression Screening 05/29/2024 COVID-19 Vaccine ( season) 2025 05/20/2024, 05/09/2023, [...] left fifth base intra-articular us Jhonatan Fountain DPGlendy IMG XR PROCEDURES Final R esult * [...] Final Result * Hepatitis C Screening (02/03/2023) [facility] C Screening Abstracted Historical Provider MD HEALTH MAINTENANCE Final Result from Last 3 Months or Most Recently Relevant to Health Maintenance Insurance MEDICAID - [place] MEDICARE Care Teams Journey Lineman Relationship Specialty Start Date End Date Ruchi Alexandre RN [address] [place] [phone] [facility] - General 10/06/23
--- OUTSIDE RECORDS SUMMARY | 2025-01-30 12:33 | XMS_ITS | Encounter Summary ---
Author Organization [employer] Address [address] [facility] 7t [place] [address] Care Team Providers Care Metal Buildings Assembler Name Role Phone Ruchi Alexandre COMMUNICATIONS SUPERINTENDENT Primary Care Provider [phone] Reason for Visit * Reason Onset Date Comments Pre-op 06/14/2023 Encounter Details Date Type Department Care Team ([facility] st Contact Info) Description 06/14/2023 Telephone [facility] [address] [place], [place] [phone] Ruchi Alexandre FNP [address] [place] [address] Pre-op Social History Tobacco Use Types Packs/Day [...] regards to the message below please call [phone] * Telephone Encounter - Pat Vasquez RN - 06/23/2023 9:07 AM EST TC X2 to Herlinda regarding message below. LVM to return call to nurses. * Telephone Encounter - Jaskaran Abbasi - 06/22/2023 4:32 PM EST Tc from herlinda with [facility] returning Phone call [phone] * Telephone Encounter - Pat Vasquez RN - 06/22/2023 2:32 PM EST TC X1 to [facility] eye regarding pre op needed. LVM [...] provider Surgeon's name: Dr. moreno Facility name: [facility] eye Surgeon's office number: [phone] Surgeon's office fax number: [phone] Contact name (person you spoke with): Herlinda [...] documented as of this encounter Care Teams Metal Buildings Assembler Relationship Specialty Start Date End Date Ruchi Alexandre FNP [address] [place] [phone] PCP - General Family Medicine 07/19/22 Dr. Chirag Cordova Pulmonary Disease 05/26/24 documented as of this encounter
--- OUTSIDE RECORDS SUMMARY | 2025-01-30 12:33 | XMS_ITS | Encounter Summary ---
Author Organization [employer] Address [address] [facility] [address] [place] [address] Care Team Providers Care Travertine Installer Name Role Phone Ruchi Alexandre Primary Care Provider [phone] Encounter Details Date Type Department Care Team ([facility] st Contact Info) Description 06/27/2023 Telephone [facility] MED[facility] [address] [place] [address] Ruchi Alexandre FNP [address] [place], [place] [phone] Social History Tobacco Use Types Packs/Day Years [...] documented as of this encounter Care Teams Travertine Installer Relationship Specialty Start Date End Date Ruchi Alexandre FNP [address] [place] [address] PCP - General Family Medicine 07/19/22 Dr. Chirag Cordova Pulmonary Disease 05/26/24 documented as of this encounter
--- OUTSIDE RECORDS SUMMARY | 2025-01-30 12:33 | XMS_ITS | Encounter Summary ---
Author Organization [employer] Address [address] [facility] [address] [place] [address] Care Team Providers Care Workers' Compensation Commissioner Name Role Phone Jigneshdelfino Ruchi PULMONARY NURSE PRACTITIONER Primary Care Provider [phone] Encounter Details Date Type Department Care Team ([facility] st Contact Info) Description 12/08/2024 Results Follow-Up [facility] MED & PEDS [address] [place], [place] [phone] Ruchi Alexandre FNP [address] [place] [address] BD DEXA Axial Social History Tobacco Use [...] documented as of this encounter Care Teams Workers' Compensation Commissioner Relationship Specialty Start Date End Date Ruchi Alexandre FNP [address] [place] [address] PCP - General Family Medicine 07/19/22 Dr. Chirag Cordova Pulmonary Disease 05/26/24 documented as of this encounter
--- OUTSIDE RECORDS SUMMARY | 2025-01-30 12:33 | XMS_ITS | Encounter Summary ---
Author Organization [employer] Address [address] [facility] [address] [place] [address] Care Team Providers Care Rapid Outsole Stitcher Name Role Phone Ruchi Alexandre SONG LYRICIST Primary Care Provider [phone] Encounter Details Date Type Department Care Team ([facility] st Contact Info) Description 08/15/2022 Orders Only [facility] MED & PEDS [address] [place] [address] Sarah Estrada LPN Social History Tobacco Use [...] Blood Count 5.3 4.8 - 10.8 X10*3/uL [facility] Red Blood Count 3.39(L) 4.60 - 5.80 X10*6/uL [facility] Hemoglobin 10.3(L) 14.0 - 18.0 g/dl [facility] Hematocrit 33.3(L) 42.0 - 52.0 % [facility] Mean Corpuscular Volume 98.2(H) 80.0 - 98.0 fL [facility] Mean Corpuscular Hemoglobin 30.4 27.0 - 33.0 pg [facility] Mean Corpuscular HGB Conc 30.9(L) 31.0 - 36.0 g/dl [facility] Red Cell Distribution Width 17.5(H) 11.0 - 16.0 % [facility] Platelet Count 88(L) 160 - 400 X10*3/uL [facility] Mean Platelet Volume 13.4(H) 9.4 - 12.4 fL [facility] NRBC Pct Auto 0.0 0.0 - 0.2 /100WBC [facility] NRBC Abs Auto 0.000 0.0 - 0.012 X10*3/uL [facility] Neutrophils % Manual 21(L) 45 - 73 % [facility] Band Neutrophils Percent 6(H) 3 - 5 % [facility] Lymphocytes Percent Manual 13(L) 20 - 40 % [facility] Monocytes Percent Manual 58(H) 2 - 11 % [facility] Myelocytes 2 % [facility] NEUTROPHILS ABSOLUTE MANUAL 1.4(L) 2.0 - 8.3 X10*3/uL [facility] LYMPHOCYTES ABSOLUTE MANUAL 0.7(L) 1.2 - 4.9 X10*3/uL [facility] MONOCYTES ABSOLUTE MANUAL 3.1(H) 0.1 - 1.2 X10*3/uL [facility] Absolute Myelocytes 0.1 X10*/uL [facility] Platelet Estimate DECREASED NORMAL [facility] Platelet Morphology Comment NORMAL [facility] RBC Morphology NOTED [facility] POLYCHROMASIA 1+ (0-2) /[facility] Tear Drop Cells 1+ (0-2) /[facility] Ovalocytes 1+ (5-14) /[facility] 01/17/2023 4:43 PM EDT 01/17/2023 5:29 PM EDT us Isabella Chiu MD LAB BLOOD ORDERABLES Final Resul t [facility] [address] [place] [address] [phone] * Lactic Acid (12/07/2022 6:57 PM EDT) Lactic Acid 0.9 0.5 - 2.0 mmol/L [facility] 12/07/2022 6:57 PM EDT 12/07/2022 7:01 PM EDT [facility] External Provider LAB BLO OD ORDERABLES Final Result Performing Organization Address City/[facility]/ZIP Co de Phone Number [facility] [address] [place] [address] [phone] * (ABNORMAL) Urinalysis, Complete, with Reflex to Culture (12/07/2022 6:04 PM EDT) Color Urine Dark Yellow [facility] Appearance Urine Clear [facility] PH 6.5 5.0 - 9.0 [facility] Glucose Urine UA Negative Negative mg/dL [facility] Urine Blood Large (3+)(A) Negative [facility] Specific [place] - Urine 1.015 1.005 - 1.025 [facility] Urine Protein 100 (2+)(A) Neg-Trace mg/dL [facility] Urine Ketones Negative Negative mg/dL [facility] Nitrite Urine Negative Negative [facility] Leukocyte Esterase Urine Negative Negative [facility] RBC Urine 6-10(A) 0 - 2 /HPF [facility] Urine WBC 0-5 0 - 5 /HPF [facility] Urine Squamous Epithelial Cell 0-2 0 - 2 /HPF [facility] Urine Bacteria None Seen None Seen [facility] Hyaline Casts, Urine 0-2 0 - 2 /LPF [facility] 12/07/2022 6:04 PM EDT 12/07/2022 6:17 PM EDT Narrative [facility] - 12/07/2022 6:49 PM EDT [id number], Clean Catch [facility] External Provider LAB URI NE ORDERABLES Final Result Performing Organization Address [facility]/ZIP Co de Phone Number [facility] [address] [place] [address] [phone] * SARS-CoV-2 RNA, Influenza A/B, and RSV RNA, Ql NAAT (12/07/2022 4:10 PM EDT) Influenza A PCR NEGATIVE Negative [facility] Influenza B PCR NEGATIVE Negative [facility] Resp Syncy Virus RNA Qual PCR NEGATIVE Negative [facility] SARS COV2 PCR NEGATIVE Negative [facility] Comment:All test results mus t [...] use by authorized laboratories.Testing performed on the Bromium GeneXpert utilizingreal-time RT-PCR.All SARS CoV2 and positive influenza A/B results arereported to [facility]. 12/07/2022 4:10 PM EDT 12/07/2022 4:15 PM EDT [facility] Exter nal Provider LAB MICROBIOLOGY - GENERAL ORDERABLES Final Result [facility] [address] [place] [phone] * High Sensitivity Troponin I (12/07/2022 4:10 PM EDT) Pathologist [facility] TROPONIN I HIGH SENSITIVITY 20.8 <3.5 - 35.0 ng/L [facility] Comment:The [place] high sens itivity Troponin-I results should beused in conjunction with other diagnostic information suchas ECG, clinical observations and information, and patientsymptoms to aid in the diagnosis of [place]. 12/07/2022 4:10 PM EDT 12/07/2022 4:13 PM EDT [facility] External Provider LAB BLO OD ORDERABLES Final Result [facility] [address] [place] [address] [phone] * (ABNORMAL) Comprehensive Metabolic Panel (12/07/2022 4:10 PM EDT) Sodium 132(L) 135 - 145 mmol/L [facility] Potassium 3.8 3.3 - 5.1 mmol/L [facility] Chloride 100 96 - 108 mmol/L [facility] Carbon Dioxide 19(L) 22 - 29 mmol/L [facility] Anion Gap 17 12 - 20 [facility] Urea Nitrogen (BUN) 9 9 - 16 mg/dL [facility] Creatinine, Serum 1.04 0.5 - 1.4 mg/dL [facility] Creatinine Clr Calc Pharmacy 74.0 [facility] Comment:eGFR (calculated fro m the MDRD study equation) and eCrCl(calculated from the Cockcroft-Gault equation) are based ondifferent parameters and may not yield comparable results.If eCrCl result is absurd, please check patient'sheight/weight. Estimated Glomerular Filt Rate >60 [facility] Comment:NOTE: For -Am erican individuals, multiply the result by 1.210.Chronic Kidney Disease: Estimated GFR < 60 mL/min/[id number] Kidney Disease: Estimated GFR < 15 mL/min/1.73m2 Glucose 203(H) 60 - 115 mg/dL [facility] Calcium 9.1 8.4 - 10.2 mg/dL [facility] Bilirubin, Total 3.0(H) 0.0 - 1.0 mg/dL [facility] Aspartate Amino Transferase 81(H) 5 - 37 U/L [facility] Alanine Aminotransferase 15 0 - 40 U/L [facility] Total Protein 6.8 6.5 - 8.0 g/dL [facility] Albumin Level 3.6 3.5 - 5.0 g/dL [facility] Alkaline Phosphatase 68 39 - 117 U/L [facility] 12/07/2022 4:10 PM EDT 12/07/2022 4:13 PM EDT [facility] External Provider LAB BLO OD ORDERABLES Final Result Performing Organization Address [facility] Co de Phone Number [facility] [address] [place] [phone] * (ABNORMAL) Lactic Acid (12/07/2022 4:10 PM EDT) Lactic Acid 3.6(HH) 0.5 - 2.0 mmol/L [facility] Comment:Critical value for t est(s):LACTA Results called to franklin back by:LUZ Person calling:DORYS Date:12/07/22Time:1637 12/07/2022 4:10 PM EDT 12/07/2022 4:13 PM EDT [facility] External Provider LAB BLO OD ORDERABLES Final Result Performing Organization Address [facility] Co de Phone Number [facility] [address] [place] [phone] * Slide Review (12/07/2022 4:10 PM EDT) Slide Review VERIFIED [facility] 12/07/2022 4:10 PM EDT 12/07/2022 4:13 PM EDT [facility] External Provider LAB BLO OD ORDERABLES Final Result Performing Organization Address [facility] Co de Phone Number [facility] [address] [place] [address] [phone] * (ABNORMAL) CBC auto differential (12/07/2022 4:10 PM EDT) White Blood Count 15.5(H) 4.8 - 10.8 X10*3/uL [facility] Red Blood Count 3.33(L) 4.60 - 5.80 X10*6/uL [facility] Hemoglobin 10.0(L) 14.0 - 18.0 g/dl [facility] Hematocrit 31.7(L) 42.0 - 52.0 % [facility] Mean Corpuscular Volume 95.2 80.0 - 98.0 fL [facility] Mean Corpuscular Hemoglobin 30.0 27.0 - 33.0 pg [facility] Mean Corpuscular HGB Conc 31.5 31.0 - 36.0 g/dl [facility] Red Cell Distribution Width 16.9(H) 11.0 - 16.0 % [facility] Platelet Count 95(L) 160 - 400 X10*3/uL [facility] Mean Platelet Volume 12.7(H) 9.4 - 12.4 fL [facility] Neutrophils Percent Auto 52.8 45 - 73 % [facility] Imm Gran Pct Auto 3.9(H) 0.0 - 0.4 % [facility] Lymphocytes Percent Auto 2.2(L) 20 - 40 % [facility] Monocytes Percent Auto 40.4(H) 2 - 11 % [facility] Eosinophils Percent Auto 0.6 0 - 4 % [facility] Basophils Percent Auto 0.1 0 - 2 % [facility] NRBC Pct Auto 0.0 0.0 - 0.2 /100WBC [facility] Neutrophils Absolute Auto 8.2 2.0 - 8.3 x10*3/uL [facility] Imm Gran Abs Auto 0.60(H) 0.00 - 0.03 X10*3/uL [facility] Lymphocytes Absolute Auto 0.3(L) 1.2 - 4.9 X10*3/uL [facility] Monocytes Absolute Auto 6.2(H) 0.1 - 1.2 X10*3/uL [facility] Eosinophils Absolute Auto 0.1 0.0 - 0.4 X10*3/uL [facility] Basophils Absolute Auto 0.0 0.0 - 0.2 X10*3/uL [facility] NRBC Abs Auto 0.000 0.0 - 0.012 X10*3/uL [facility] 12/07/2022 4:10 PM EDT 12/07/2022 4:13 PM EDT us [facility] External Provider LAB BLO OD ORDERABLES Edited Result - Final [facility] [address] [place] [phone] * Hematoxylin and Eosin Stain (11/11/2022 1:27 PM EDT) 11/11/2022 1:27 PM EDT 11/11/2022 2:00 PM EDT Narrative [facility] - 11/15/2022 10:21 AM EDT ----- ------- Name: Jony Murillo Age/Sex: 62/M : 1960 Unit#: [id number] Attend Dr: Melissa Handy MD Re11/11/22 [place] [facility] [place] Disch: ----- ------- SPEC : [id number] RECD: 11/11/22-1399 STATUS: MARIA D LARKIN NUM: [id number] [place]: 11/11/22-[address]: Melissa Handy MD [...] A. KG Copies To: Melissa Handy MD [address] [place] [address] [place] [address] Ruchi Alexandre [address] [place] [address] CONTINUED ON NEXT PAGE ----- ------- Name: Jony Murillo Age/Sex: 62/M : 1960 Unit#: [id number] Attend Dr: Melissa Handy MD Re11/11/22 Status: [facility] Location: [facility] Disch: ----- ------- SPEC : [id number] RECD: 11/11/22 STATUS: MARIA D LARKIN NUM: [id number] [place]: 11/11/22-1326 [facility] DR: Melissa Handy MD ENTERED: 11/11/22-141 SP TYPE: Surgical OTHR DR: Ruchi Alexandre [facility] ORDERED: HE Stain/2, Gross Micro L4 COMMENTS: One of the tissue fragments is extremely tiny and may be difficult to identify during processing and may fail to survive processing. ----- ------- Signed (signature on file) Lloyd Cook MD 11/15/22 1021 ----- ------- END OF REPORT [facility] External Provider LAB BLO OD ORDERABLES Final Result [facility] [address] [place] [address] [phone] * (ABNORMAL) Basic Metabolic Panel, Fasting (10/07/2022 10:31 AM EDT) Sodium 142 135 - 145 mmol/L [facility] Potassium 3.7 3.3 - 5.1 mmol/L [facility] Chloride 111(H) 96 - 108 mmol/L [facility] Carbon Dioxide 24 22 - 29 mmol/L [facility] Anion Gap 11(L) 12 - 20 [facility] Urea Nitrogen (BUN) 6(L) 9 - 16 mg/dL [facility] Creatinine, Serum 0.86 0.5 - 1.4 mg/dL [facility] Creatinine Clr Calc Pharmacy 89.5 [facility] Comment:eGFR (calculated fro m the MDRD study equation) and eCrCl(calculated from the Cockcroft-Gault equation) are based ondifferent parameters and may not yield comparable results.If eCrCl result is absurd, please check patient'sheight/weight. Estimated Glomerular Filt Rate >60 [facility] Comment:NOTE: For -Am erican individuals, multiply the result by 1.210.Chronic Kidney Disease: Estimated GFR < 60 mL/min/[id number] Kidney Disease: Estimated GFR < 15 mL/min/1.73m2 Glucose Fasting 104(H) 60 - 99 mg/dL [facility] Comment:A fasting glucose fr om 100-125 mg/dl is considered impaired(pre-diabetes). Calcium 8.0(L) 8.4 - 10.2 mg/dL [facility] 10/07/2022 10:3 1 AM EDT 10/07/2022 10:34 AM EDT us [facility] External Provider LAB BLO OD ORDERABLES Final Result [facility] [address] [place] [phone] * (ABNORMAL) CBC (10/07/2022 10:31 AM EDT) White Blood Count 4.4(L) 4.8 - 10.8 X10*3/uL [facility] Red Blood Count 3.33(L) 4.60 - 5.80 X10*6/uL [facility] Hemoglobin 10.1(L) 14.0 - 18.0 g/dl [facility] Hematocrit 32.4(L) 42.0 - 52.0 % [facility] Mean Corpuscular Volume 97.3 80.0 - 98.0 fL [facility] Mean Corpuscular Hemoglobin 30.3 27.0 - 33.0 pg [facility] Mean Corpuscular HGB Conc 31.2 31.0 - 36.0 g/dl [facility] Red Cell Distribution Width 17.2(H) 11.0 - 16.0 % [facility] Platelet Count 105(L) 160 - 400 X10*3/uL [facility] Mean Platelet Volume 12.4 9.4 - 12.4 fL [facility] NRBC Pct Auto 0.0 0.0 - 0.2 /100WBC [facility] NRBC Abs Auto 0.000 0.0 - 0.012 X10*3/uL [facility] 10/07/2022 10:3 1 AM EDT 10/07/2022 10:34 AM EDT us [facility] External Provider LAB BLO OD ORDERABLES Final Result [facility] [address] [place] [address] [phone] * Hematoxylin and Eosin Stain (09/26/2022 3:14 PM EDT) 09/26/2022 3:14 PM EDT 09/27/2022 6:57 AM EDT Narrative [facility] - 09/29/2022 11:09 AM EDT ----- ------- Name: Jony Murillo Age/Sex: 62/M : 1960 Unit#: [id number] Attend Dr: Melissa Handy MD Re09/26/22 [place] [facility] [place] Disch: ----- ------- SPEC : [id number] RECD: 09/27/22 STATUS: MARIA D LARKIN NUM: [id number] [place]: 09/26/22 [facility] DR: Melissa Handy MD ENTERED: 09/27/22 [...] A. KG Copies To: Melissa Handy MD [address] [place] [address] [place] [address] Ruchi Alexandre [address] [place] [address] CONTINUED ON NEXT PAGE ----- ------- Name: Jony Murillo Age/Sex: 62/M : 1960 Unit#: [id number] Attend Dr: Melissa Handy MD Re09/26/22 [place] [facility] [place] [facility] Disch: ----- ------- SPEC : [id number] RECD: 09/27/22 STATUS: MARIA D LARKIN NUM: [id number] [place]: 09/26/22 [facility] DR: Melissa Handy MD ENTERED: 09/27/22 SP TYPE: Surgical OTHR DR: Ruchi Alexandre SONG LYRICIST ORDERED: HE Stain/2, Gross Micro L4 COMMENTS: Two of the tissue fragments are extremely tiny and may be difficult to identify during processing and may fail to survive processing. ----- ------- Signed (signature on file) Lloyd Cook MD 09/29/22 1109 ----- ------- END OF REPORT [facility] External Provider LAB BLO OD ORDERABLES Final Result [facility] [address] [place] [phone] * Gross and Microscopic Level 4 (08/19/2022 1:41 PM EDT) 08/19/2022 1:41 PM EDT 08/19/2022 2:20 PM EDT Narrative [facility] - 09/12/2022 12:16 PM EDT ----- ------- Name: Jony Murillo Age/Sex: 62/M : 1960 Unit#: [id number] Attend Dr: Melissa Handy MD Re08/19/22 Status: [facility] Location: [facility] Disch: ----- ------- SPEC : [id number] RECD: 08/19/22 STATUS: MARIA D LARKIN NUM: [id number] [place]: 08/19/22-[address]: Melissa Handy MD ENTERED: 08/19/22-1442 SP TYPE: Surgical OTHR DR: ORDERED: Gross Micro L4, Cytokeratin, IHC, Add. immunos/2, Specials Gr. 1, PASF COMMENTS: Block A sent to [facility] for HSV CMV IHC's on 08/23/22. One of the tissue fragments is extremely tiny and may be difficult to identify during processing and may fail to survive processing. Addendum Addendum 1 Entered: 09/12/22 Immunostains for HSV and CMV are non-reactive. No change is made to the diagnosis. Technical services for immunohistochemistry studies performed at [facility] Yovanny Hylton [place]; [facility] #[id number] Addendum Signed (signature on file) Lloyd Cook [...] Microscopic sections reviewed. Pancytokeratin immunostain highlights only [place] benign epithelium; no fungi are seen, supported by PAS stain. Material Received Esophageal stricture bx's CONTINUED ON NEXT PAGE ----- ------- Name: Jony Murillo Age/Sex: 62/M : 1960 Unit#: [id number] Attend Dr: Melissa Handy MD Re08/19/22 [place]: [facility] [place] Disch: ----- ------- SPEC : [id number] RECD: 08/19/22-1419 STATUS: MARIA D LARKIN NUM: [id number] [place]: 08/19/22-1341 [facility] DR: Melissa Handy MD ENTERED: 08/19/22 SP TYPE: Surgical OTHR DR: ORDERED: Gross Micro L4, Cytokeratin, IHC, Add. /2, Specials Gr. 1, PASF COMMENTS: Block A sent to [facility] for HSV CMV IHC's on 08/23/22. One [...] 08/29/22 1146 ----- ------- END OF REPORT [facility] External Provider [facility] ORDER[place]LES Final Result [facility] [address] [place] [phone] documented in this encounter Visit Diagnoses Not on filedocumented in this encounter Care Teams Rapid Outsole Stitcher Relationship Specialty Start Date End Date Ruchi Alexandre FNP [address] [place] [address] PCP - General Family Medicine 07/19/22 Dr. Chirag Cordova Pulmonary Disease 05/26/24 documented as of this encounter
== END ==
LOC: HO.NUCMED 10:58
PROVIDERS: PCP Registered Nurse; Visit Provider Internal Medicine
DX: S22.41XA Multiple fractures of ribs, right side, initial encounter for closed fracture (principal); S22.42XA Multiple fractures of ribs, left side, initial encounter for closed fracture
CPT/HCPCS: 78306; A9503

== ENCOUNTER → 2025-01-30 10:59 | Outpatient (BNV) | payer MEDICARE, MEDICAID, SELFPAY | PROVIDERS: PCP Registered Nurse; Visit Provider Radiology Diagnostic Radiology | DX: M89.8X9 Other specified disorders of bone, unspecified site (principal) | CPT/HCPCS: 78306 ==

== ENCOUNTER 2025-02-12 09:58 | Emergency (ER) | payer MEDICARE, MEDICAID, SELFPAY ==
--- NOTE | 2025-02-12 10:14 | ED.GENADULT ---
HPI - General Adult General Chief complaint: Cardiac Arrest/CPR Stated complaint: cardiac arrest Time Seen by Provider: 02/12/25 10:09 Source: family and EMS Mode of arrival: EMS Limitations: other (CPRin progress) History of Present Illness ED Provider: HPI narrative: 64-year-old male with a history of oxygen-dependent COPD smoker 15 years ago, alcohol use disorder last drink approximately 20 years ago with alcoholic liver cirrhosis, was seen January 19 after a fall was having back pain, was diagnosed with multiple myeloma, today was getting dressed and placed in the wheelchair by family to go to an appointment and became unresponsive, family started CPR, EMS arrived on the scene approximately 923, patient intubated with I gel, received a total of 8 epi pushes, has been in [facility]. Related Data Home Medications ?Medication ?Instructions ?Recorded ?Confirmed naloxone 4 mg/actuation nasal 4 mg intranasal Q2M PRN Opioid 03/23/20 01/23/25 spray (Narcan) Overdose atorvastatin 20 mg tablet 20 mg PO BEDTIME 01/27/22 01/23/25 lamotrigine 200 mg tablet 200 mg PO BID 01/27/22 01/23/25 metoprolol tartrate 25 mg tablet 25 mg PO BID 01/27/22 01/23/25 paliperidone 3 mg tablet,extended 3 mg PO QNOON 01/27/22 01/23/25 release 24 hr (Invega) paliperidone 6 mg tablet,extended 6 mg PO QAM 01/27/22 01/23/25 release 24 hr (Invega) sildenafil 100 mg tablet (Viagra) 100 mg PO DAILY PRN Sexual Activity 01/27/22 01/23/25 gabapentin 600 mg tablet 1,200 mg PO BEDTIME 12/07/22 01/23/25 dextroamphetamine-amphetamine 10 1 tab PO DAILY 03/09/23 01/23/25 mg tablet ipratropium 0.5 mg-albuterol 3 mg 3 ml inhalation Q6-8H PRN wheezing 08/10/23 01/23/25 (2.5 mg base)/3 mL nebulization soln gabapentin 600 mg tablet 600 mg PO TID 09/12/24 01/23/25 Previous Rx's ?Medication ?Instructions ?Recorded clonazepam 1 mg tablet 1 mg PO BID ANXIETY 30 days #60 08/31/23 tabs oxycodone 5 mg tablet 5 mg PO Q6H PRN pain #20 tabs 05/23/24 ferrous sulfate 324 mg (65 mg 324 mg PO DAILY 90 days #90 tabs 09/27/24 iron) tablet,delayed release omeprazole 40 mg capsule,delayed 40 mg PO TID 90 days #270 caps 09/27/24 release budesonide 0.5 mg/2 mL suspension 0.5 mg (2 mL) inhalation BID 10/02/24 for nebulization COPD/ASTHMA 30 days #120 mL fluticasone 500 mcg-salmeterol 50 1 inh inhalation BID severe COPD 10/10/24 mcg/dose blistr powdr for 30 days #60 ea inhalation (Advair Diskus) fluticasone fur. 200 mcg-umeclid 1 inh inhalation DAILY severe copd 10/15/24 62.5 mcg-vilant 25 mcg 30 days #60 ea inhalat.powder (Trelegy Ellipta) prednisone 5 mg tablet 5 mg PO BID #60 tabs 12/19/24 methocarbamol 750 mg tablet 1,500 mg (2 x 750 mg) PO Q8H PRN 01/15/25 pain, moderate #24 tabs oxycodone 5 mg tablet 5 mg PO Q8H PRN pain #15 tabs 01/15/25 lidocaine 5 % topical patch 1 patch topical DAILY #15 ea 01/20/25 oxycodone 5 mg tablet 5 mg PO Q8H PRN pain 5 days #15 01/20/25 tabs albuterol sulfate 90 mcg/actuation 2 puff inhalation Q4-6H PRN 01/30/25 aerosol inhaler (Ventolin HFA) shortness of breath or wheezing 30 days #8.5 grams Allergies Allergy/AdvReac Type Severity Reaction Status Date / Time No Known Allergies (No Known Allergy Verified 02/12/25 10:25 Allergies*) Review of Systems Review of Systems: Yes Unobtainable due to mental status [facility] Past Medical History Medical History Rib fractures Emphysema lung Hx of hepatic disease Bronchitis Closed head injury Soft tissue injury of right chest wall Hypoxia On beta mariano at home Anxiety Bronchitis Ascending aorta dilatation O2 dependent Personal history of nicotine dependence Pulmonary nodules Hypoxemia COPD (chronic obstructive pulmonary disease) Hiatal hernia without gangrene or obstruction GERD without esophagitis Mass of upper lobe of left lung History of drug abuse History of ETOH abuse Bipolar disorder Hyperlipidemia Hypertension Surgical History History of Achilles tendon repair History of endoscopy History of biopsy History of colonoscopy History of repair of hiatal hernia (~06/01/18) Family History Family History Father History of heart attack Mother History of COPD Sister History of cancer Brother Hx of cancer of lung Social History Social History (Updated 01/23/25 @ 10:09 by Felipe Kelley) Household Members: Significant Other Housing: House Do you presently have visiting nurse or other home services: No Alcohol intake: former Comment: refusing bed alarm Patient Tobacco Use Status: Former Tobacco user Tobacco use type: Cigarette Second Hand Smoke Exposure: No Advance Directives: No Advance Directives on File: Yes Advance Directives Date on File: 12/08/22 service: No Physical Exam ED Vital Signs: BMI result Body Mass Index 23.0 Const Other: Patient is intubated with I-gel Pupils dilated 4 mm, nonreactive to light, cloudy cornea No facial trauma no blood in the airway Ventilated throughout during bagging Abdomen nondistended No trauma noted to the body or extremities Left tibia IO Procedures Intubation Intubation Type:: Endotracheal Tube Insertion Intubation Date:: 02/12/25 Intubation Time:: 10:03 Time out performed: No sedative: none ET Tube Size: 7.5 ET Tube Uncuffed: No Tube Secured Depth (cm): 23 Tube Secured Location: lips Tube Placement Confirmation: visualized tube passing through cords and confirmation by capnometry Patient Tolerated Procedure: no complications Intubation Complications: none Medical Decision Making Medical Decision Making MDM Narrative: 64-year-old male presented to emergency department with CPR in progress after receiving a doses of epinephrine, intubated initially with a high gel I exchanged to ETT, provided calcium, bicarb, 2 more doses of epinephrine, patient remained in asystole time of 10:08 a.m., updated patient's and daughter, patient had a fall approximately 3 weeks ago without any evidence for head injury, I did contact a me, case was rejected No reports of drug or alcohol use, no reports of new trauma except for what I mentioned, he has a remote history of alcohol and tobacco use but not in the past 15-20 years Differential Diagnosis Differential Diagnoses: The differential diagnosis associated with the presentation includes (Myocardial infarction, pulmonary embolus, intoxication, trauma, aortic dissection) Independent Historian Clinical information obtained from an independent historian. History obtained from or confirmed by: Spouse and EMS Chronic Conditions Patient?s care impacted by: Hypertension and Cancer Critical Care Time Critical Care Time Critical Care Time: Yes Total Critical Care Time: 32 Attestation: Time is exclusive of separately billable procedures. Time includes: direct patient care, patient reassessment, coordination of patient care, interpretation of data (laboratory data, pulse oximetry, arterial blood gases and chest xrays), review of patient's medical records, medical consultation and documentation of patient care. Procedures excluded from critical care time: central intravenous line placement and electrocardiography. Discharge Plan Discharge Clinical Impression: Cardiac arrest Patient Disposition: Date/Time: 02/12/25 10:08 Pronouncement Note Date and Time of Date of : 02/12/25 Time of : 10:08 PCOD Preliminary cause of : Myocardial infarction due to atherothrombotic coronary artery disease Contributing Factors (1) Acute on chronic respiratory failure with hypoxemia: (2) Personal history of nicotine dependence: (3) O2 dependent: Additional Data Confirmation of : no pulse Family: at bedside Attending/PCP notified?: No Attending physician: Dr. Mckay Was code activated?: Yes Autopsy requested?: No legal examiner notified?: Yes (declined [id number]) Organ bank notified?: No Advance directives: No
[2025-02-12 10:18] VITALS: BMI 23.3
[2025-02-12 10:20] VITALS: BMI 23.0
--- NOTE | 2025-02-12 10:49 | PC.NURSE ---
Pt is a 64yo M, recent diagnosis of multiple myeloma. Called family approx 0830 today stating he didn't feel well. Family arrived to take him to his oncology appt. Witnessed cardiac arrest by family member. Initiated CPR immediately. Pt brought in by EMS, arrived on [place]. [employer] pt was in asystole and received a total of 8 rounds of epi. CPR in progress for approx 45min [employer]. Pt was transfered to ED stretcher and ACLS was continued. See Code Blue flowsheet. Time of called at 1008. Family at bedside notified of by
--- NOTE | 2025-02-12 11:09 | MHC.EDTECH ---
@10:21am Called EM office Dr. Mckay request, Daniella answers takes patient demographics, speaks to Dr. Mckay Rn gives TOD 10:08am
--- NOTE | 2025-02-12 11:23 | MHC.EDTECH ---
@11:21am Spoke to Gil to make them aware of pt .
--- OUTSIDE RECORDS SUMMARY | 2025-02-12 12:26 | XMS_ITS | Clinical Summary ---
Author Organization [employer] Address [address] [place] [address] [address] [place] [address] Care Team Providers Care Pipefitter Welder Name Role Phone Unavailable Primary Care Provider Unavailabl e Allergies Active Allergy Reactions Criticality Noted Date Comments Quinolones 07/12/2018 Other reaction(s): tendon rupture Tramadol 11/18/2010 Other reaction(s): Hives Medications omeprazole (PriLOSEC) [address] capsuleIndicati ons:Gastroesoph ageal reflux disease, unspecified whether esophagitis present TAKE 1 CAPSULE BY MOUTH TWICE DAILY 180 capsule 1 3 Active amphetamine-dex troamphetamine (Adderall) 10 MG tablet Take 1 tablet [...] to put over the nose 1 Active ipratropium-alb uterol (Duo-Neb) 0.5-2.5 mg/3 mL nebulizer solution INHALE [...] 2 puffs in the morning. 3 Active Fluticasone-Cj meterol 500-50 MCG/ACT aerosol powderIndicatio ns:Chronic obstructive pulmonary disease, unspecified COPD type (CMS/HCC) INHALE 1 PUFF BY MOUTH TWICE DAILY, 12 HOURS APART, RINSE MOUTH AFTER USING. 60 each 5 4 Active ipratropium-alb uterol (Combivent Respimat) 20-100 MCG/ACT inhaler INHALE 1 PUFF 4 TIMES A DAY, MAY TAKE ADDITIONAL PUFFS NEEDED. (MAX OF 6 PUFFS PER DAY) 4 g 3 4 Active metoprolol tartrate (Lopressor) 25 MG tabletIndicatio ns:Aortic root dilation (CMS/HCC) TAKE 1 TABLET BY MOUTH TWICE DAILY 180 tablet 3 4 Active Symbicort 160-4.5 MCG/ACT inhaler INHALE 2 PUFFS BY MOUTH TWICE DAILY, RINSE MOUTH AFTER USING. 4 Active atorvastatin (Lipitor) 20 MG tablet TAKE 1 TABLET BY MOUTH AT BEDTIME 90 tablet 3 5 Active gabapentin (Neurontin) 600 MG tablet TAKE 1 TABLET BY MOUTH TWICE DAILY IN THE MORNING AND IN THE EVENING AND TAKE 2 TABLETS BY MOUTH AT BEDTIME 120 tablet 4 5 Active Trelegy Ellipta 200-62.5-25 MCG/ACT aerosol powder 5 Active oxyCODONE-aceta minophen (Percocet) 5-325 MG tabletIndicatio ns:History of fracture,Trauma tic ecchymosis of left foot, initial encounter Take 1 tablet by mouth if needed each day for severe pain for up to 3 days. 3 tablet 5 01/16/20 25 traMADol (Ultram) 50 MG tabletIndicatio ns:Bone lesion Take 1 tablet (50 mg) by mouth every 12 (twelve) hours if needed for severe pain for up to 7 days. 14 tablet 5 01/28/20 25 traMADol (Ultram) 50 MG tabletIndicatio ns:Bone lesion Take 1 tablet (50 mg) by mouth every 12 (twelve) hours if needed for severe pain for up to 7 days. 14 tablet 5 02/12/20 25 Active Problems Problem Noted Date Diagnosed Date [...] - May 2023: identified during CEE at [facility] Mood disorder 08/09/2023 Assessment & Plan (08/09/2023 8:22 AM EDT): Followed by Dr. Brendan Ruvalcaba Continues on the following medications through psych: Invega 6mg in the morning, and 3mg in the afternoon Clonazepam 1mg BID Lamotrigene 200mg BID Adderall 1mg daily Closed head injury 08/08/2023 Esophageal stricture 08/08/2023 Hypoxia 08/08/2023 O2 dependent 08/08/2023 Overview (05/26/2024): Prescribed/managed by [facility] Pulm - Dr. Cordova Apr 2024: Rest: 2.5-3 L/min Activity outside of home: 4L/min Former cigarette smoker 08/08/2023 Healthcare maintenance 01/26/2023 Overview (01/05/2025): Colonoscopy: normal (04/16/18, [place], [facility]). Due 2027 Opto: CEE May 2023 w/ [facility]. No retinopathy. DXA: normal bone [...] ASHWIN Villatoro. HFCCA Feb 2020 Established with [facility] Cards - Dr. Joseph Plan: annual monitoring [...] 10/18/2019 Cirrhosis 05/24/2019 Overview (01/05/2025): Following with [facility] GI - Dr. Handy Vaccines: Hep A [...] Overview (01/05/2025): Followed by Dr. Cordova at [facility] Pul Advanced COPD Last exacerbation: 12/07/22, hospitalized for [...] AM EDT): PA for Advair pending through pulm. Wheezing on exam improved s/p DuoNeb. Follow-up [...] Encounters Date Type Department Care Team Description 02/12/2025 Telephone [facility] [address] [place] [address] Ruchi Alexandre FNP 02/04/2025 Refill [facility] PEDS [address] [place] [address] Tashia Larkin RN Bone lesion (Primary Dx) 02/04/2025 Telephone [facility]ED[facility] [address] [place] [address] Ruchi Alexandre FNP 01/30/2025 Orders Only [facility] External Provider, [facility] 01/20/2025 Orders Only [facility] [address] [place] [address] Ruchi Alexandre FNP Bone lesion (Primary Dx) 01/17/2025 Telephone [facility] [address] [place] [address] Ruchi Alexandre FNP No Show 01/17/2025 Travel 01/16/2025 Telephone [facility] [address] [place] [address] Ruchi Alexandre FNP Appointment Request 01/15/2025 Orders Only [facility] External Provider, [facility] [place] 01/14/2025 Orders Only GENERIC EXTERNAL DATA DEPARTMENT Provider, Generic External Data 01/12/2025 Orders Only [facility] [address] [place] [address] Ruchi Alexandre FNP History of fracture; Traumatic ecchymosis of left foot, initial encounter 01/08/2025 Telephone [facility] [address] [place] [address] Ruchi Alexandre FNP 01/03/2025 3:30 PM EDT Office Visit [facility] [address] [place] [address] Ruchi Alexandre FNP Traumatic ecchymosis of left foot, initial encounter (Primary Dx); History of fracture; Current chronic use of systemic steroids; Healthcare maintenance; Cirrhosis of liver without ascites, unspecified hepatic cirrhosis type (CMS/HCC); Chronic obstructive pulmonary disease, unspecified COPD type (CMS/HCC); History of fall 01/03/2025 Travel 12/08/2024 Results Follow-Up [facility] [address] [place] [address] Ruchi Alexandre FNP BD DEXA Axial 11/27/2024 Telephone [facility] [address] [place] [address] Ruchi Alexandre FNP Referral 11/26/2024 Orders Only [facility] External Provider, [facility] from Last 3 Months Immunizations Immunization Administration [...] history exists Depression Screening 2025 02/16/2024, 02/16/20 24 SDOH Screening 2025 02/16/2024 Alcohol/Substance Use Screening 05/20/2025 05/20/2024 Tobacco Screening 09/30/2025 09/30/2024 Colonoscopy 04/16/2028 04/16/2018 Colorectal Cancer Screening 04/16/2028 Hepatitis C Screening Completed 02/03/2023 Hepatitis B Vaccines Completed 08/09/2023, 03/22/2023, 03/14/2007, Additional history exists Hepatitis A Vaccines Completed 09/30/2024, 03/22/20 HIB Vaccines Aged Out No longer eligi [...] Procedure Name Priority Date/Time Associated Diagnosis Comments NM BONE WHOLE BODY Routine 01/30/2025 12 :[address] LUMBAR SPINE WO CONTRAST Routine 01/15/2025 [...] Recently Relevant to Health Maintenance Results * NM Bone Whole Body (01/30/2025 12:19 PM EDT) Anatomical Region Laterality Modality Nuclear Medicine 01/30/2025 12:1 9 PM EDT Narrative 01/30/2025 4:13 PM EDT [place] [address] Nuclear Medicine Report Signed Patient: Jony Murillo MR#: [id number] 017 : 1960 Acct:[id number] Age/Sex: 64 / M ADM Date: 01/30/25 Loc: RAMIREZ Attending Dr: Cristine Arriaga MD Ordering Physician: Cristine Arriaga MD Date of Service: 01/30/25 Procedure(s): NM bone scan whole body Accession Number(s): [id number] cc: Cristine Arriaga MD; Ruchi Alexandre Reason for Exam: ?Lytic lesions in spine EXAMINATION: NM BONE SCAN OF THE WHOLE BODY CLINICAL INFORMATION: Question lytic lesions in spine COMPARISON: CT chest 01/19/2025. CT lumbar spine 01/15/2025 TECHNIQUE: Multiple gamma scintillation camera images of the whole body were performed. 2 hours and 45 minutes following the intravenous administration of 27 mCi Tc-99m MDP. FINDINGS: In the head, no abnormal isotope activity seen. In the thoracic cage and upper extremities, there is mild focal increased activity seen along right anterior costochondral junction, fourth, ninth, 10th and 11th ribs and mid right fifth and posterior eighth, ninth and 10th ribs. Also noted is abnormal focal activity in the left lateral fourth, seventh and anterior costal chondral junctions fourth, fifth, seventh and minimal left eighth ribs. There is mild increased activity seen in the right lower humerus probable metastatic disease. Mild diffuse activity in the left proximal humerus and the glenohumeral joint is likely DJD or fracture. In the spine, focal increased activity seen in T11 vertebra which corresponds to pathological fracture. Also seen is increased activity in bilateral T8 and mild activity right T9 and left T10 vertebrae. Mild focal activity is also seen in left T12 In the pelvis, no abnormal activity seen in the pelvis. In the lower extremities, nonspecific focal activity seen in the right superior femoral head and right posterior ischium, left lower femoral neck and right mid femur. Mild focal activity seen in left fifth MTP joint, left distal first toe, right second MTP joint, right medial ankle likely DJD. Similar faint increased activity seen in the left medial knee joint and lateral right knee joint. The urinary bladder and faint visualization of both kidneys are noted. NM/NM bone scan whole body IMPRESSION: There are multiple focal activities in bilateral ribs and anterior costochondral junctions corresponding to the fractures visualized on the CT chest exam. Increased activity seen in the lower thoracic and lumbar spine correspond to lytic lesion seen on CT lumbar spine and are metastatic disease. Focal activity seen in the pelvis likely metastatic disease as well. Mild increased activity seen in bilateral foot and medial the likely related to DJD. Electronically signed by: Kishore Chopra MD 01/30/2025 04:10 PM EDT Dictated By: Kishore Chopra MD Signed By: <Electronically signed by Kishore Chopra MD in OV> 01/30/25 1610 DD/ 1219 TD/TT: 01/30/25 1455 Leather Crafter: RAYMUNDO Procedure Note Donotuseinterpreter, Image - 01/30/[address] [address] Nuclear Medicine Report Signed Patient: Betsy Murillo#: [id number] 017 : 8Acct:[id number] Age/Sex: 64 / MADM Date: 01/30/25 Loc: RAMIREZ Attending Dr: Cristine Arriaga MD Ordering Physician: Cristine Arriaga MD Date of Service: 01/30/25 Procedure(s): NM bone scan whole body Accession Number(s): [id number] cc: Cristine Arriaga MD; Ruchi Alexandre Reason for Exam: ?Lytic lesions in spine EXAMINATION: NM BONE SCAN OF THE WHOLE BODY CLINICAL INFORMATION: Question lytic lesions in spine COMPARISON: CT chest 01/19/2025. CT lumbar spine 01/15/2025 TECHNIQUE: Multiple gamma scintillation camera images of the whole body were performed. 2 hours and 45 minutes following the intravenous administration of 27 mCi Tc-99m MDP. FINDINGS: In the head, no abnormal isotope activity seen. In the thoracic cage and upper extremities, there is mild focal increased activity seen along right anterior costochondral junction, fourth, ninth, 10th and 11th ribs and mid right fifth and posterior eighth, ninth and 10th ribs. Also noted is abnormal focal activity in the left lateral fourth, seventh and anterior costal chondral junctions fourth, fifth, seventh and minimal left eighth ribs. There is mild increased activity seen in the right lower humerus probable metastatic disease. Mild diffuse activity in the left proximal humerus and the glenohumeral joint is likely DJD or fracture. In the spine, focal increased activity seen in T11 vertebra which corresponds to pathological fracture. Also seen is increased activity in bilateral T8 and mild activity right T9 and left T10 vertebrae. Mild focal activity is also seen in left T12 In the pelvis, no abnormal activity seen in the pelvis. In the lower extremities, nonspecific focal activity seen in the right superior femoral head and right posterior ischium, left lower femoral neck and right mid femur. Mild focal activity seen in left fifth MTP joint, left distal first toe, right second MTP joint, right medial ankle likely DJD. Similar faint increased activity seen in the left medial knee joint and lateral right knee joint. The urinary bladder and faint visualization of both kidneys are noted. NM/NM bone scan whole body IMPRESSION: There are multiple focal activities in bilateral ribs and anterior costochondral junctions corresponding to the fractures visualized on the CT chest exam. Increased activity seen in the lower thoracic and lumbar spine correspond to lytic lesion seen on CT lumbar spine and are metastatic disease. Focal activity seen in the pelvis likely metastatic disease as well. Mild increased activity seen in bilateral foot and medial the likely related to DJD. Electronically signed by: Kishore Chopra MD 01/30/2025 04:10 PM EDT Dictated By: Kishore Chopra MD Signed By: <Electronically signed by Kishore Chopra MD in OV> 01/30/25 1610 DD/ 1219 TD/TT: 01/30/25 1455 Leather Crafter: RAYMUNDO [facility] External Provider IMG NM PROCEDURES Final Result * CT Lumbar Spine w/o Contrast (01/15/2025 3:54 AM EDT) Anatomical Region Laterality Modality Spine, L-spine Computed Tomogra phy 01/15/2025 3:54 AM EDT Narrative 01/15/2025 3:56 AM EDT [place] [address] CT Scan Report Signed Patient: Jony Murillo MR#: [id number] 017 : 1960 Acct:[id number] Age/Sex: 64 / M ADM Date: 01/15/25 Loc: HO.ED Attending Dr: Ordering Physician: Montserrat Muhammad Date of Service: 01/15/25 Procedure(s): CT lumbar spine wo IV con Accession Number(s): [id number] cc: Montserrat Muhammad; Ruchi Alexandre COMMERCIAL INTELLIGENCE MANAGER Report Number: [id number]: Total DLP = 475.00 mGy-cm CLINICAL HISTORY: pain compression fx? CT lumbar spine without contrast Comparison: CT/SR - CT CHEST WO IV CON - 06/11/24 17:[address]/REG/WA/SR - ABD PELV W PO CON ONLY [id number] - 10/04/18 23:44 EDT Findings: There are [...] in OV> 01/15/256 DD/ 3 TD/TT: 01/15/25353 Leather Crafter: Procedure Note Donotuseinterpreter, Image - 01/15/[address] [place] [address] [address] Scan Report Signed Patient: Betsy Murillo#: [id number] 017 : 8Acct:[id number] Age/Sex: 64 / MADM Date: 01/15/25 Loc: HO.ED Attending Dr: Ordering Physician: Montserrat Muhammad Date of Service: 01/15/25 Procedure(s): CT lumbar spine wo IV con Accession Number(s): [id number] cc: Montserrat Muhammad; Ruchi Alexandre COMMERCIAL INTELLIGENCE MANAGER Report Number: [id number]: Total DLP = 475.00 mGy-cm CLINICAL HISTORY: pain compression fx? CT lumbar spine without contrast Comparison: CT/SR - CT CHEST WO IV CON - 06/11/24 17:[address]/REG/WA/SR - ABD PELV W PO CON ONLY [id number] - 10/04/18 23:44 EDT Findings: There are [...] 01/15/25 0356 DD/ 0354 TD/TT: 01/15/25 0354 Leather Crafter: us [facility] [place] External Provider IMG CT PROCEDURES Final Result * Slide Review (01/14/2025 9:59 PM EDT) Slide Review VERIFIED [facility] 01/14/2025 9:59 PM EDT 01/14/2025 10:04 PM EDT Generic External Data Provider LAB BLOOD ORDERAB LES Final Result Performing Organization Address [facility]/ZIP Co de Phone Number [facility] [address] [place] [phone] * High Sensitivity Troponin I (01/14/2025 9:59 PM EDT) Pathologist [facility] TROPONIN I HIGH SENSITIVITY <2.7 <3.5 - 35.0 ng/L [facility] Comment:The [place] high sens itivity Troponin-I results should beused in conjunction with other diagnostic information suchas ECG, clinical observations and information, and patientsymptoms to aid in the diagnosis of [place]. 01/14/2025 9:59 PM EDT 01/14/2025 10:04 PM EDT Generic External Data Provider LAB BLOOD ORDERAB LES Final Result Performing Organization Address [facility] Co de Phone Number [facility] [address] [place] [phone] * SARS-CoV-2 RNA, Influenza A/B, and RSV RNA, Ql NAAT (01/14/2025 9:59 PM EDT) Pathologist [facility] Influenza A PCR NEGATIVE Negative [facility] Influenza B PCR NEGATIVE Negative [facility] Resp Syncy Virus RNA Qual PCR NEGATIVE Negative [facility] SARS COV2 PCR NEGATIVE Negative [facility] Comment:All test results mus t [...] use by authorized laboratories.Testing performed on the [employer] GeneXpert utilizingreal-time RT-PCR.All SARS CoV2 and positive influenza A/B results arereported to [facility]. 01/14/2025 9:59 PM EDT 01/14/2025 10:04 PM EDT us Generic External Data Provider LAB MICROBIOLOGY - GENERAL ORDERABLES Final Result [facility] [address] [place] [address] [phone] * (ABNORMAL) CBC auto differential (01/14/2025 9:59 PM EDT) White Blood Count 5.7 4.8 - 10.8 X10*3/uL [facility] Red Blood Count 3.31(L) 4.60 - 5.80 X10*6/uL [facility] Hemoglobin 11.0(L) 14.0 - 18.0 g/dl [facility] Hematocrit 33.5(L) 42.0 - 52.0 % [facility] Mean Corpuscular Volume 101.2(H) 80.0 - 98.0 fL [facility] Mean Corpuscular Hemoglobin 33.2(H) 27.0 - 33.0 pg [facility] Mean Corpuscular HGB Conc 32.8 31.0 - 36.0 g/dl [facility] Red Cell Distribution Width 17.5(H) 11.0 - 16.0 % [facility] Platelet Count 63(L) 160 - 400 X10*3/uL [facility] Neutrophils Percent Auto 26.2(L) 45 - 73 % [facility] Imm Gran Pct Auto 3.9(H) 0.0 - 0.4 % [facility] Lymphocytes Percent Auto 11.8(L) 20 - 40 % [facility] Monocytes Percent Auto 57.5(H) 2 - 11 % [facility] Eosinophils Percent Auto 0.4 0 - 4 % [facility] Basophils Percent Auto 0.2 0 - 2 % [facility] NRBC Pct Auto 0.0 0.0 - 0.2 /100WBC [facility] Neutrophils Absolute Auto 1.5(L) 2.0 - 8.3 x10*3/uL [facility] Imm Gran Abs Auto 0.22(H) 0.00 - 0.03 X10*3/uL [facility] Lymphocytes Absolute Auto 0.7(L) 1.2 - 4.9 X10*3/uL [facility] Monocytes Absolute Auto 3.3(H) 0.1 - 1.2 X10*3/uL [facility] Eosinophils Absolute Auto 0.0 0.0 - 0.4 X10*3/uL [facility] Basophils Absolute Auto 0.0 0.0 - 0.2 X10*3/uL [facility] NRBC Abs Auto 0.000 0.0 - 0.012 X10*3/uL [facility] 01/14/2025 9:59 PM EDT 01/14/2025 10:04 PM EDT Generic External Data Provider LAB BLOOD ORDERAB LES Edited Result - Final Performing Organization Address [facility] Co de Phone Number [facility] [address] [place] [phone] * Magnesium (01/14/2025 9:59 PM EDT) Magnesium 2.2 1.6 - 2.6 mg/dL [facility] 01/14/2025 9:59 PM EDT 01/14/2025 10:04 PM EDT Generic External Data Provider LAB BLOOD ORDERAB LES Final Result Performing Organization Address [facility] Co de Phone Number [facility] [address] [place] [phone] * Lipase (01/14/2025 9:59 PM EDT) Lipase 17 8 - 78 U/L [facility] 01/14/2025 9:59 PM EDT 01/14/2025 10:04 PM EDT us Generic External Data Provider LAB BLOOD ORDERAB LES Final Result [facility] [address] [place] [address] [phone] * (ABNORMAL) Comprehensive Metabolic Panel (01/14/2025 9:59 PM EDT) Sodium 139 135 - 145 mmol/L [facility] Potassium 3.9 3.3 - 5.1 mmol/L [facility] Chloride 103 96 - 108 mmol/L [facility] Carbon Dioxide 24 22 - 29 mmol/L [facility] Anion Gap 16 12 - 20 [facility] Urea Nitrogen (BUN) 7(L) 9 - 16 mg/dL [facility] Creatinine, Serum 0.93 0.5 - 1.4 mg/dL [facility] Creatinine Clr Calc Pharmacy 80.6 [facility] Comment:eGFR (calculated fro m the MDRD study equation) and eCrCl(calculated from the Cockcroft-Gault equation) are based ondifferent parameters and may not yield comparable results.If eCrCl result is absurd, please check patient'sheight/weight. Estimated Glomerular Filt Rate >60 [facility] Comment:Chronic Kidney Disea se: Estimated GFR < 60 mL/min/1.66d6Imqxls Kidney Disease: Estimated GFR < 15 mL/min/1.73m2 Glucose 100 60 - 115 mg/dL [facility] Calcium 8.3(L) 8.4 - 10.2 mg/dL [facility] Bilirubin, Total 1.5(H) 0.0 - 1.0 mg/dL [facility] Aspartate Amino Transferase 14 5 - 37 U/L [facility] Alanine Aminotransferase 13 0 - 40 U/L [facility] Total Protein 7.5 6.5 - 8.0 g/dL [facility] Albumin Level 4.1 3.5 - 5.0 g/dL [facility] Alkaline Phosphatase 131(H) 39 - 117 U/L [facility] 01/14/2025 9:59 PM EDT 01/14/2025 10:04 PM EDT us Generic External Data Provider LAB BLOOD ORDERAB LES Final Result [facility] [address] [place] [address] [phone] * BD DEXA Axial (12/04/2024 1:45 PM EDT) Anatomical Region Laterality Modality Body Radiographic Sherri ging 12/04/2024 1:45 PM EDT Narrative 12/04/2024 2:16 PM EDT [address] [place] [address] Mammography Report Signed Patient: Jony Murillo MR#: [id number] 017 : 1960 Acct:[id number] Age/Sex: 64 / M ADM Date: 12/04/24 Loc: HO.MAMMO Attending Dr: Ruchi PARNELL Ordering Physician: Ruchi Alexandre Results: Date of Service: 12/04/24 Follow Up: Procedure(s): XR DEXA axial skeleton Accession Number(s): [id number] cc: Ruchi Alexandre EXAMINATION: DXA BONE DENSITY AXIAL HISTORY: SNF USE OF STEROIDS TECHNIQUE: [employer] Dual energy absorptiometry (DEXA) of the lumbar [...] of the [employer] [place] for Metabolic Bone Disease, a World Health Organization (WHO) Collaborating Center. Electronically signed by: Sadiq Troncoso MD 12/04/2024 02:14 PM EDT Dictated By: Sadiq Troncoso MD Signed By: <Electronically signed by Sadiq Troncoso MD in OV> 12/04/24 1414 DD/ 1345 TD/TT: 12/04/24 1405 Leather Crafter: Procedure Note Donotuseinterpreter, Image - 12/04/2024 [facility] [address] 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 Electronically signed by: Sadiq Troncoso MD 12/04/2024 02:14 PM EDT RP Dictated By: Sadiq Troncoso MD Signed By: <Electronically signed by Sadiq Troncoso MD in OV> 12/04/24 1414 DD/ 1345 TD/TT: 12/04/24 1405 Leather Crafter: us Ruchi MIRANDAP IMG DXA PROCEDURES Final Resul t * US Abdomen Limited (11/26/2024 3:51 PM EDT) Anatomical Region Laterality Modality Abdomen Ultrasound 11/26/2024 3:51 PM EDT Narrative 11/27/2024 1:13 PM EDT [address] [address] Ultrasound Report Signed Patient: Jony Murillo MR#: [id number] : 1960 Acct:[id number] Age/Sex: 64 / M ADM Date: 11/26/24 Loc: HO.US Attending Dr: Melissa Handy MD Ordering Physician: Melissa Handy MD Date of Service: 11/26/24 Procedure(s): US abdomen limited Accession Number(s): [id number] cc: Melissa Handy MD; Ruchi Alexandre EXAMINATION: [...] 11/27/24 0701 DD/ 1551 TD/TT: 11/26/24 1610 Leather Crafter: Procedure Note Donotuseinterpreter, Image - 11/27/[address] [address] Ultrasound Report Signed Patient: Betsy Murillo#: [id number] : 8Acct:[id number] Age/Sex: 64 / MADM Date: 11/26/24 Loc: HO.US Attending Dr: Melissa Handy MD Ordering Physician: Melissa Handy MD Date of Service: 11/26/24 Procedure(s): US abdomen limited Accession Number(s): [id number] cc: Melissa Handy MD; Ruchi Alexandre EXAMINATION: [...] 11/27/24 0701 DD/ 1551 TD/TT: 11/26/24 1610 Leather Crafter: [facility] External Provider IMG US PROCEDURES Final Result * Hepatitis C Antibody with Reflex to HCV, RNA, Quantitative, Real-Time PCR (02/03/2023 3:24 PM EDT) Hepatitis C Antibody Nonreactive Nonreactive [facility] Comment:Antibodies to HCV no t detected; does not exclude early acuteHCV infection. Blood Venous blood specimen / Unknown 02/03/2023 3:24 PM EDT 02/03/2023 4:05 PM EDT us Isabella Chiu MD LAB BLOOD ORDERABLES Final Resul t [facility] [address] [place] [address] [phone] from Last 3 Months or Most Recently Relevant to Health Maintenance Insurance MEDICARE Member Subscriber Plan / Payer (Ef fective 2023-Present) Name:Jony Murillo Member ID:[id number] Relation to Subscriber:Self Name:Jony Murillo Subscriber ID:[id number] Payer ID:STATE Group ID:Not on file Type:Medicare Address: [facility] [address] [address] [facility] Care Teams Pipefitter Welder Relationship Specialty Start Date End Date Dr. Chirag Cordova Pulmonary Disease 05/26/24
--- OUTSIDE RECORDS SUMMARY | 2025-02-12 12:26 | XMS_ITS | Encounter Summary ---
Author Organization [employer] Address [address] [facility] [address] [place] [address] Care Team Providers Care Material Control Associate Name Role Phone Ruchi Alexandre AUDIO VIDEO TECHNICIAN Primary Care Provider [phone] Reason for Visit * Reason Onset Date Comments Pre-op 06/14/2023 Encounter Details Date Type Department Care Team ([facility] st Contact Info) Description 06/14/2023 Telephone [facility] MED & PEDS [address] [place], [place] [phone] Ruchi Alexandre FNP [address] [place] [address] Pre-op Social History Tobacco Use Types Packs/Day [...] regards to the message below please call [phone] * Telephone Encounter - Pat Vasquez RN - 06/23/2023 9:07 AM EST TC X2 to Herlinda regarding message below. LVM to return call to nurses. * Telephone Encounter - Jaskaran Abbasi - 06/22/2023 4:32 PM EST Tc from herlinda with [facility] returning Phone call [phone] * Telephone Encounter - Pat Vasquez RN - 06/22/2023 2:32 PM EST TC X1 to [facility] eye regarding pre op needed. LVM [...] provider Surgeon's name: Dr. moreno Facility name: [facility] eye Surgeon's office number: [phone] Surgeon's office fax number: [phone] Contact name (person you spoke with): Herlinda [...] documented as of this encounter Care Teams Material Control Associate Relationship Specialty Start Date End Date Ruchi Alexandre FNP [address] [place] [id number] PCP - General Family Medicine 07/19/22 02/11/25 Dr. Chirag Cordova Pulmonary Disease 05/26/24 documented as of this encounter
--- OUTSIDE RECORDS SUMMARY | 2025-02-12 12:26 | XMS_ITS | Encounter Summary ---
Author Organization [employer] Address [address] [place] [address] Care Team Providers Care Metrologist Name Role Phone Ruchi Alexandre Primary Care Provider Encounter Details Date Type Department Care Team ([facility] st Contact Info) Description 06/27/2023 Telephone [facility] MEDICINE [address] [place] [address] Ruchi Alexandre FNP [address] [place], [place] [phone] Social History Tobacco Use Types Packs/Day Years [...] documented as of this encounter Care Teams Metrologist Relationship Specialty Start Date End Date Ruchi Alexandre FNP [address] [place] [phone] PCP - General Family Medicine 07/19/22 02/11/25 Dr. hCirag Cordova Pulmonary Disease 05/26/24 documented as of this encounter
--- OUTSIDE RECORDS SUMMARY | 2025-02-12 12:27 | XMS_ITS | Encounter Summary ---
Author Organization [employer] Address [address] [place] [address] Care Team Providers Care Intelligence Consultant Name Role Phone Unavailable Primary Care Provider Unavailabl e Encounter Details Date Type Department Care Team (Late st Contact Info) Description 02/12/2025 Telephone [facility] MEDICINE [address] [place] [address] Ruchi Alexandre FNP [address] [place] [address] Social History Tobacco Use Types Packs/Day Years [...] encounter Miscellaneous Notes * Telephone Encounter - John Shirley MA - 02/12/2025 11:25 AM EDT Recieve a call from [facility] to inform that patient on at 10:08 am documented in this encounter Plan of Treatment Not on file documented as of this encounter Visit Diagnoses Not on filedocumented in this encounter Additional Health Concerns Assessment Noted Time PHQ-9 Depression Total Score: 0 02/16/20 24 3:53 PM EDT documented as of this encounter Care Teams Intelligence Consultant Relationship Specialty Start Date End Date Dr. Chirag Cordova Pulmonary Disease 05/26/24 documented as of this encounter
--- OUTSIDE RECORDS SUMMARY | 2025-02-12 12:27 | XMS_ITS | Clinical Summary ---
Author Organization [address] [facility] Address [address] [place] [address] Phone Care Team Providers Care Fish Processing Supervisor Name Role Phone Ruchi Alexandre RN Primary Care Provider Allergies No known active allergies Medications clotrimazole (LOTRIMIN) 1 % cream Apply to skin and toenails daily for 12 weeks 10/20/2023 Active Encounters Date Type Department Care Team Description 01/15/2025 2:30 PM EDT Office Visit Orthopedic Surgery [facility] [address] [facility] [address] [place] [phone] Jhonatan Fountain, DPM Closed nondisplaced fracture of proximal phalanx of toe of left foot (Primary Dx); Follow-up exam; Closed nondisplaced fracture of fifth metatarsal bone of right foot with routine healing, subsequent encounter from Last 3 Months Immunizations Name Administration [...] Upcoming Encounters Date Type Department Care Team ([facility] st Contact Info) Description 02/12/2025 3:45 PM EDT Office Visit Orthopedic Surgery - [place] [address] [facility] [address] [place] [address] Jhonatan Fountain, DPM [address] [facility] [address] [place] [phone] Health Maintenance Due Date Last Done Comments [...] Routine 01/15/2025 3:10 PM EDT Follow-up exam ANNUAL BMP BLOOD [...] Fracture proximal phalanx left fifth base intra-articular Jhonatan Fountain DPGlendy IMG XR PROCEDURES Final R esult * Annual BMP Blood Test (07/24/2023) Annual BMP Blood Test Abstracted Historical Provider MD HEALTH MAINTENANCE Final Result * Hepatitis C Screening (02/03/2023) Hepatitis C Screening Abstracted Historical Provider HEALTH MAINTENANCE Final Result from Last 3 Months or Most Recently Relevant to Health Maintenance Insurance MEDICAID [facility] MEDICARE Care Teams Fish Processing Supervisor Relationship Specialty Start Date End Date Ruchi Alexandre RN [address] [place] [id number] PCP - General 10/06/23
--- OUTSIDE RECORDS SUMMARY | 2025-02-12 12:27 | XMS_ITS | Encounter Summary ---
Author Organization [employer] Address [address] [facility] 7t [place] [address] Care Team Providers Care Window Shade Cutter Name Role Phone Ruchi Alexandre PRODUCTION RECORDER Primary Care Provider [phone] Encounter Details Date Type Department Care Team ([facility] st Contact Info) Description 08/15/2022 Orders Only [facility] MED & PEDS [address] [place] [address] Sarah Estrada LPN Social History Tobacco Use [...] Blood Count 5.3 4.8 - 10.8 X10*3/uL [facility] Red Blood Count 3.39(L) 4.60 - 5.80 X10*6/uL [facility] Hemoglobin 10.3(L) 14.0 - 18.0 g/dl [facility] Hematocrit 33.3(L) 42.0 - 52.0 % [facility] Mean Corpuscular Volume 98.2(H) 80.0 - 98.0 fL [facility] Mean Corpuscular Hemoglobin 30.4 27.0 - 33.0 pg [facility] Mean Corpuscular HGB Conc 30.9(L) 31.0 - 36.0 g/dl [facility] Red Cell Distribution Width 17.5(H) 11.0 - 16.0 % [facility] Platelet Count 88(L) 160 - 400 X10*3/uL [facility] Mean Platelet Volume 13.4(H) 9.4 - 12.4 fL [facility] NRBC Pct Auto 0.0 0.0 - 0.2 /100WBC [facility] NRBC Abs Auto 0.000 0.0 - 0.012 X10*3/uL [facility] Neutrophils % Manual 21(L) 45 - 73 % [facility] Band Neutrophils Percent 6(H) 3 - 5 % [facility] Lymphocytes Percent Manual 13(L) 20 - 40 % [facility] Monocytes Percent Manual 58(H) 2 - 11 % [facility] Myelocytes 2 % [facility] NEUTROPHILS ABSOLUTE MANUAL 1.4(L) 2.0 - 8.3 X10*3/uL [facility] LYMPHOCYTES ABSOLUTE MANUAL 0.7(L) 1.2 - 4.9 X10*3/uL [facility] MONOCYTES ABSOLUTE MANUAL 3.1(H) 0.1 - 1.2 X10*3/uL [facility] Absolute Myelocytes 0.1 X10*/uL [facility] Platelet Estimate DECREASED [facility] Platelet Morphology Comment NORMAL [facility] RBC Morphology NOTED [facility] POLYCHROMASIA 1+ (0-2) /[facility] Tear Drop Cells 1+ (0-2) /OIF [facility] Ovalocytes 1+ (5-14) /[facility] 01/17/2023 4:43 PM EDT 01/17/2023 5:29 PM EDT us Isabella Chiu MD LAB BLOOD ORDERABLES Final Resul t [facility] [address] [place] [address] [phone] * Lactic Acid (12/07/2022 6:57 PM EDT) Lactic Acid 0.9 0.5 - 2.0 mmol/L [facility] 12/07/2022 6:57 PM EDT 12/07/2022 7:01 PM EDT [facility] External Provider LAB BLO OD ORDERABLES Final Result Performing Organization Address City/[facility]/ZIP Co de Phone Number [facility] [address] [place] [phone] * (ABNORMAL) Urinalysis, Complete, with Reflex to Culture (12/07/2022 6:04 PM EDT) Color Urine Dark Yellow [facility] Appearance Urine Clear [facility] PH 6.5 5.0 - 9.0 [facility] Glucose Urine UA Negative Negative mg/dL [facility] Urine Blood Large (3+)(A) Negative [facility] Specific Goff - Urine 1.015 1.005 - 1.025 [facility] Urine Protein 100 (2+)(A) Neg-Trace mg/dL [facility] Urine Ketones Negative Negative mg/dL [facility] Nitrite Urine Negative Negative [facility] Leukocyte Esterase Urine Negative Negative [facility] RBC Urine 6-10(A) 0 - 2 /HPF [facility] Urine WBC 0-5 0 - 5 /HPF [facility] Urine Squamous Epithelial Cell 0-2 0 - 2 /HPF [facility] Urine Bacteria None Seen None Seen [facility] Hyaline Casts, Urine 0-2 0 - 2 /LPF [facility] 12/07/2022 6:04 PM EDT 12/07/2022 6:17 PM EDT Narrative [facility] - 12/07/2022 6:49 PM EDT [id number], Clean Catch [facility] External Provider LAB URI NE ORDERABLES Final Result Performing Organization Address [facility]/ZIP Co de Phone Number [facility] [address] [place] [address] [phone] * SARS-CoV-2 RNA, Influenza A/B, and RSV RNA, Ql NAAT (12/07/2022 4:10 PM EDT) Influenza A PCR NEGATIVE Negative [facility] Influenza B PCR NEGATIVE Negative [facility] Resp Syncy Virus RNA Qual PCR NEGATIVE Negative [facility] SARS COV2 PCR NEGATIVE Negative [facility] Comment:All test results mus t [...] use by authorized laboratories.Testing performed on the [employer] GeneXpert utilizingreal-time RT-PCR.All SARS CoV2 and positive influenza A/B results arereported to [facility]. 12/07/2022 4:10 PM EDT 12/07/2022 4:15 PM EDT [facility] Exter nal Provider LAB MICROBIOLOGY - GENERAL ORDERABLES Final Result [facility] [address] [place] [phone] * High Sensitivity Troponin I (12/07/2022 4:10 PM EDT) Pathologist [facility] TROPONIN I HIGH SENSITIVITY 20.8 <3.5 - 35.0 ng/L [facility] Comment:The [place] high sens itivity Troponin-I results should beused in conjunction with other diagnostic information suchas ECG, clinical observations and information, and patientsymptoms to aid in the diagnosis of [place]. 12/07/2022 4:10 PM EDT 12/07/2022 4:13 PM EDT [facility] External Provider LAB BLO OD ORDERABLES Final Result [facility] [address] [place] [address] [phone] * (ABNORMAL) Comprehensive Metabolic Panel (12/07/2022 4:10 PM EDT) Sodium 132(L) 135 - 145 mmol/L [facility] Potassium 3.8 3.3 - 5.1 mmol/L [facility] Chloride 100 96 - 108 mmol/L [facility] Carbon Dioxide 19(L) 22 - 29 mmol/L [facility] Anion Gap 17 12 - 20 [facility] Urea Nitrogen (BUN) 9 9 - 16 mg/dL [facility] Creatinine, Serum 1.04 0.5 - 1.4 mg/dL [facility] Creatinine Clr Calc Pharmacy 74.0 [facility] Comment:eGFR (calculated fro m the MDRD study equation) and eCrCl(calculated from the Cockcroft-Gault equation) are based ondifferent parameters and may not yield comparable results.If eCrCl result is absurd, please check patient'sheight/weight. Estimated Glomerular Filt Rate >60 [facility] Comment:NOTE: For -Am erican individuals, multiply the result by 1.210.Chronic Kidney Disease: Estimated GFR < 60 mL/min/1.97p6Cqihpw Kidney Disease: Estimated GFR < 15 mL/min/1.73m2 Glucose 203(H) 60 - 115 mg/dL [facility] Calcium 9.1 8.4 - 10.2 mg/dL [facility] Bilirubin, Total 3.0(H) 0.0 - 1.0 mg/dL [facility] Aspartate Amino Transferase 81(H) 5 - 37 U/L [facility] Alanine Aminotransferase 15 0 - 40 U/L [facility] Total Protein 6.8 6.5 - 8.0 g/dL [facility] Albumin Level 3.6 3.5 - 5.0 g/dL [facility] Alkaline Phosphatase 68 39 - 117 U/L [facility] 12/07/2022 4:10 PM EDT 12/07/2022 4:13 PM EDT [facility] External Provider LAB BLO OD ORDERABLES Final Result Performing Organization Address [facility] Co de Phone Number [facility] [address] [place] [phone] * (ABNORMAL) Lactic Acid (12/07/2022 4:10 PM EDT) Lactic Acid 3.6(HH) 0.5 - 2.0 mmol/L [facility] Comment:Critical value for t est(s):LACTA Results called to franklin back by:LUZ Person calling:DORYS Date:12/07/22Time:1637 12/07/2022 4:10 PM EDT 12/07/2022 4:13 PM EDT [facility] External Provider LAB BLO OD ORDERABLES Final Result Performing Organization Address [facility] Co de Phone Number [facility] [address] [place] [phone] * Slide Review (12/07/2022 4:10 PM EDT) Slide Review VERIFIED [facility] 12/07/2022 4:10 PM EDT 12/07/2022 4:13 PM EDT [facility] External Provider LAB BLO OD ORDERABLES Final Result Performing Organization Address [facility] Co de Phone Number [facility] [address] [place] [address] [phone] * (ABNORMAL) CBC auto differential (12/07/2022 4:10 PM EDT) White Blood Count 15.5(H) 4.8 - 10.8 X10*3/uL [facility] Red Blood Count 3.33(L) 4.60 - 5.80 X10*6/uL [facility] Hemoglobin 10.0(L) 14.0 - 18.0 g/dl [facility] Hematocrit 31.7(L) 42.0 - 52.0 % [facility] Mean Corpuscular Volume 95.2 80.0 - 98.0 fL [facility] Mean Corpuscular Hemoglobin 30.0 27.0 - 33.0 pg [facility] Mean Corpuscular HGB Conc 31.5 31.0 - 36.0 g/dl [facility] Red Cell Distribution Width 16.9(H) 11.0 - 16.0 % [facility] Platelet Count 95(L) 160 - 400 X10*3/uL [facility] Mean Platelet Volume 12.7(H) 9.4 - 12.4 fL [facility] Neutrophils Percent Auto 52.8 45 - 73 % [facility] Imm Gran Pct Auto 3.9(H) 0.0 - 0.4 % [facility] Lymphocytes Percent Auto 2.2(L) 20 - 40 % [facility] Monocytes Percent Auto 40.4(H) 2 - 11 % [facility] Eosinophils Percent Auto 0.6 0 - 4 % [facility] Basophils Percent Auto 0.1 0 - 2 % [facility] NRBC Pct Auto 0.0 0.0 - 0.2 /100WBC [facility] Neutrophils Absolute Auto 8.2 2.0 - 8.3 x10*3/uL [facility] Imm Gran Abs Auto 0.60(H) 0.00 - 0.03 X10*3/uL [facility] Lymphocytes Absolute Auto 0.3(L) 1.2 - 4.9 X10*3/uL [facility] Monocytes Absolute Auto 6.2(H) 0.1 - 1.2 X10*3/uL [facility] Eosinophils Absolute Auto 0.1 0.0 - 0.4 X10*3/uL [facility] Basophils Absolute Auto 0.0 0.0 - 0.2 X10*3/uL [facility] NRBC Abs Auto 0.000 0.0 - 0.012 X10*3/uL [facility] 12/07/2022 4:10 PM EDT 12/07/2022 4:13 PM EDT us [facility] External Provider LAB BLO OD ORDERABLES Edited Result - Final [facility] [address] [place] [phone] * Hematoxylin and Eosin Stain (11/11/2022 1:27 PM EDT) 11/11/2022 1:27 PM EDT 11/11/2022 2:00 PM EDT Narrative [facility] - 11/15/2022 10:21 AM EDT ----- ------- Name: Jony Murillo Age/Sex: 62/M : 1960 Unit#: [id number] Attend Dr: Melissa Handy MD Re11/11/22 Status: [facility] Location: [place] Disch: ----- ------- SPEC : [id number] RECD: 11/11/22-1399 STATUS: MARIA D LARKIN NUM: [id number] [place]: 11/11/22-[address]: Melissa Handy MD [...] A. KG Copies To: Melissa Handy MD [address] [place] [address] [place] [address] Ruchi Alexandre [address] [place] [phone] CONTINUED ON NEXT PAGE ----- ------- Name: Jony Murillo Age/Sex: 62/M : 1960 Unit#: [id number] Attend Dr: Melissa Handy MD Re11/11/22 [facility] Location: [facility] Disch: ----- ------- SPEC : [id number] RECD: 11/11/22 STATUS: MARIA D LARKIN NUM: [id number] [place]: 11/11/22-[address] [facility] [address]: Melissa Handy MD ENTERED: 11/11/22-141 SP TYPE: Surgical OTHR DR: Ruchi Alexandre [facility] ORDERED: HE Stain/2, Gross Micro L4 COMMENTS: One of the tissue fragments is extremely tiny and may be difficult to identify during processing and may fail to survive processing. ----- ------- Signed (signature on file) Lloyd Cook MD 11/15/22 1021 ----- ------- END OF REPORT [facility] External Provider LAB BLO OD ORDERABLES Final Result [facility] [address] [place] [phone] * (ABNORMAL) Basic Metabolic Panel, Fasting (10/07/2022 10:31 AM EDT) Sodium 142 135 - 145 mmol/L [facility] Potassium 3.7 3.3 - 5.1 mmol/L [facility] Chloride 111(H) 96 - 108 mmol/L [facility] Carbon Dioxide 24 22 - 29 mmol/L [facility] Anion Gap 11(L) 12 - 20 [facility] Urea Nitrogen (BUN) 6(L) 9 - 16 mg/dL [facility] Creatinine, Serum 0.86 0.5 - 1.4 mg/dL [facility] Creatinine Clr Calc Pharmacy 89.5 [facility] Comment:eGFR (calculated fro m the MDRD study equation) and eCrCl(calculated from the Cockcroft-Gault equation) are based ondifferent parameters and may not yield comparable results.If eCrCl result is absurd, please check patient'sheight/weight. Estimated Glomerular Filt Rate >60 [facility] Comment:NOTE: For -Am erican individuals, multiply the result by 1.210.Chronic Kidney Disease: Estimated GFR < 60 mL/min/1.13i1Cibvdu Kidney Disease: Estimated GFR < 15 mL/min/1.73m2 Glucose Fasting 104(H) 60 - 99 mg/dL [facility] Comment:A fasting glucose fr om 100-125 mg/dl is considered impaired(pre-diabetes). Calcium 8.0(L) 8.4 - 10.2 mg/dL [facility] 10/07/2022 10:3 1 AM EDT 10/07/2022 10:34 AM EDT us [facility] External Provider LAB BLO OD ORDERABLES Final Result [facility] [address] [place] [phone] * (ABNORMAL) CBC (10/07/2022 10:31 AM EDT) White Blood Count 4.4(L) 4.8 - 10.8 X10*3/uL [facility] Red Blood Count 3.33(L) 4.60 - 5.80 X10*6/uL [facility] Hemoglobin 10.1(L) 14.0 - 18.0 g/dl [facility] Hematocrit 32.4(L) 42.0 - 52.0 % [facility] Mean Corpuscular Volume 97.3 80.0 - 98.0 fL [facility] Mean Corpuscular Hemoglobin 30.3 27.0 - 33.0 pg [facility] Mean Corpuscular HGB Conc 31.2 31.0 - 36.0 g/dl [facility] Red Cell Distribution Width 17.2(H) 11.0 - 16.0 % [facility] Platelet Count 105(L) 160 - 400 X10*3/uL [facility] Mean Platelet Volume 12.4 9.4 - 12.4 fL [facility] NRBC Pct Auto 0.0 0.0 - 0.2 /100WBC [facility] NRBC Abs Auto 0.000 0.0 - 0.012 X10*3/uL [facility] 10/07/2022 10:3 1 AM EDT 10/07/2022 10:34 AM EDT us [facility] External Provider LAB BLO OD ORDERABLES Final Result [facility] [address] [place] [address] [phone] * Hematoxylin and Eosin Stain (09/26/2022 3:14 PM EDT) 09/26/2022 3:14 PM EDT 09/27/2022 6:57 AM EDT Narrative [facility] - 09/29/2022 11:09 AM EDT ----- ------- Name: Jony Murillo Age/Sex: 62/M : 1960 Unit#: [id number] Attend Dr: Melissa Handy MD Re09/26/22 Status: [facility] Location: [place] Disch: ----- ------- SPEC : [id number] RECD: 09/27/22 STATUS: MARIA D LARKIN NUM: [id number] [place]: 09/26/[address] [facility] [address]: Melissa Handy MD ENTERED: 09/27/22 [...] A. KG Copies To: Melissa Handy MD [address] [place] [address] [place] [address] Ruchi Alexandre [address] [place] [address] CONTINUED ON NEXT PAGE ----- ------- Name: Jony Murillo Age/Sex: 62/M : 1960 Unit#: [id number] Attend Dr: Melissa Handy MD Re09/26/22 Status: [facility] Location: [facility] Disch: ----- ------- SPEC : [id number] RECD: 09/27/22 STATUS: MARIA D LARKIN NUM: [id number] [place]: 09/26/[address] [facility] [address]: Melissa Handy MD ENTERED: 09/27/22 SP TYPE: Surgical OTHR DR: Ruchi Alexandre PRODUCTION RECORDER ORDERED: HE Stain/2, Gross Micro L4 COMMENTS: Two of the tissue fragments are extremely tiny and may be difficult to identify during processing and may fail to survive processing. ----- ------- Signed (signature on file) Lloyd Cook MD 09/29/22 1109 ----- ------- END OF REPORT [facility] External Provider LAB BLO OD ORDERABLES Final Result [facility] [address] [place] [phone] [phone] * Gross and Microscopic Level 4 (08/19/2022 1:41 PM EDT) 08/19/2022 1:41 PM EDT 08/19/2022 2:20 PM EDT Narrative [facility] - 09/12/2022 12:16 PM EDT ----- ------- Name: Jony Murillo Age/Sex: 62/M : 1960 Unit#: [id number] Attend Dr: Melissa Handy MD Re08/19/22 [facility] Disch: ----- ------- SPEC : [id number] RECD: 08/19/22 STATUS: MARIA D LARKIN NUM: [id number] [place]: 08/19/22-[address]: Melissa Handy MD ENTERED: 08/19/22-1442 SP TYPE: Surgical OTHR DR: ORDERED: Gross Micro L4, Cytokeratin, IHC, Add. immunos/2, Specials Gr. 1, PASF COMMENTS: Block A sent to [facility] for HSV CMV IHC's on 08/23/22. One of the tissue fragments is extremely tiny and may be difficult to identify during processing and may fail to survive processing. Addendum Addendum 1 Entered: 09/12/22 Immunostains for HSV and CMV are non-reactive. No change is made to the diagnosis. [facility] Yovanny H[place]; [facility] #[id number] Addendum Signed (signature on file) Lloyd Cook [...] Microscopic sections reviewed. Pancytokeratin immunostain highlights only [place] benign epithelium; no fungi are seen, supported by PAS stain. Material Received Esophageal stricture bx's CONTINUED ON NEXT PAGE ----- ------- Name: Jony Murillo Age/Sex: 62/M : 1960 Unit#: [id number] Attend Dr: Melissa Handy MD Re08/19/22 Status: [facility] Location: [place] Disch: ----- ------- SPEC : [id number] RECD: 08/19/22-1419 STATUS: MARIA D LARKIN NUM: [id number] [place]: 08/19/22-[address] [facility] [address]: Melissa Handy MD ENTERED: 08/19/22 SP TYPE: Surgical OTHR DR: ORDERED: Gross Micro L4, Cytokeratin, IHC, Add. /2, Specials Gr. 1, PASF COMMENTS: Block A sent to [facility] for HSV CMV IHC's on 08/23/22. One [...] 08/29/22 1146 ----- ------- END OF REPORT [facility] External Provider [facility] Final Result [facility] [address] [place] [phone] documented in this encounter Visit Diagnoses Not on filedocumented in this encounter Care Teams Window Shade Cutter Relationship Specialty Start Date End Date Ruchi Alexandre FNP [address] [place] [address] PCP - General Family Medicine 07/19/22 02/11/25 Dr. Chirag Cordova Pulmonary Disease 05/26/24 documented as of this encounter
--- OUTSIDE RECORDS SUMMARY | 2025-02-12 12:27 | XMS_ITS | Encounter Summary ---
Author Organization [employer] Address [address] [facility] [address]t [place] [address] Care Team Providers Care Management Instructor Name Role Phone Jigneshdelfino Ruchi APPEALS ASSISTANT Primary Care Provider [phone] Encounter Details Date Type Department Care Team ([facility] st Contact Info) Description 12/08/2024 Results Follow-Up [facility] [address] [place], [place] [phone] Ruchi Alexandre FNP [address] [place] [address] BD DEXA Axial Social History Tobacco Use [...] documented as of this encounter Care Teams Management Instructor Relationship Specialty Start Date End Date Ruchi Alexandre FNP [address] [place] [phone] PCP - General Family Medicine 07/19/22 02/11/25 Dr. Chirag Cordova Pulmonary Disease 05/26/24 documented as of this encounter
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
--- NOTE | 2025-02-12 12:32 | PC.NURSE ---
sharri will be [place] in [place] [address] [phone]
== END 2025-02-12 15:07 | disposition expired ==
PROVIDERS: Emergency Provider Emergency Medicine; PCP Registered Nurse
DX: I46.9 Cardiac arrest, cause unspecified (principal); J44.9 Chronic obstructive pulmonary disease, unspecified; Z99.81 Dependence on supplemental oxygen; Z87.891 Personal history of nicotine dependence
CPT/HCPCS: 31500; 96374; 96375; 99283; 99285; J0168; J0618